=== PATIENT | male | born 1930 | race Caucasian/White ===

== ENCOUNTER 2016-12-05 13:15 | Emergency (ER) | payer MEDICARE ==
[2016-12-05 14:27] VITALS: BP 140/88
--- NOTE | 2016-12-05 15:08 | UC ---
Skin Complaint HPI - HPI Summary HPI Summary: cut left leg yesterday on a tree branch 1 large 4x4 inch skin flap that is peeled back, and second is a 1x1 inch "V" shaped laceration---no bleeding - History of Current Complaint Chief Complaint: UCLaceration Time Seen by Provider: 12/05/16 15:03 Stated Complaint: LEG LACERATION Hx Obtained From: Patient Onset/Duration: Sudden Onset, Lasting Days - 1, Still Present Skin Exposure Onset/Duration: Days Ago - 1 Timing: Constant Onset Severity: Moderate Current Severity: Mild Pain Intensity: 4 Pain Scale Used: 0-10 Numeric Location: Discrete - left lower leg Aggravating: Nothing Alleviating: Treatment 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: - soap water and peroxide wash Associated Signs & Symptoms: Positive: Negative Related History: Trauma - Allergy/Home Medications Allergies/Adverse Reactions: Allergies Allergy/AdvReac Type Severity Reaction Status Date / Time No Known Allergies Allergy Verified 09/27/15 11:21 Review of Systems Constitutional: Negative Skin: Negative, Other - 4x4 suare flap laceration and 1x1 v spahed laceration Eyes: Negative ENT: Negative Respiratory: Negative Cardiovascular: Negative Gastrointestinal: Negative Genitourinary: Negative Motor: Negative Neurovascular: Negative Musculoskeletal: Negative Neurological: Negative Psychological: Negative All Other Systems Reviewed And Are Negative: Yes PMH/Surg Hx/FS Hx/Imm Hx Previously Healthy: No Endocrine History Of: 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 Denies: Thyroid Disease Cardiovascular History Of: Reports: Cardiac Disorders - a-fib, CHF, Hypertension , Congestive Heart Failure Respiratory History Of: Reports: COPD, Asthma GI/ History Of: Reports: Gastrointestinal Bleed Denies: Ulcer, Renal Disease - Surgical History Surgical History: Yes Surgery Procedure, Year, and Place: lung surgery, cholecystectomy, hernia repair , appendectomy - Family History Known Family History: Positive: None Family History: no reported cardiovascular issues in family lineage - Social History Occupation: Retired Lives: With Family Alcohol Use: None Substance Use Type: None Smoking Status (MU): Former Smoker Type: Cigarettes When Did the Patient Quit Smoking/Using Tobacco: 20 yrs ago - Immunization History Most Recent Influenza Vaccination: 2015 fall Most Recent Tetanus Shot: unknown Most Recent Pneumonia Vaccination: 2013 Hx Tetanus, Diphtheria Vaccination: Yes - 2010 Vaccination Up to Date: Yes Physical Exam Triage Information Reviewed: Yes Appearance: Well-Appearing, No Pain Distress, Well-Nourished Vital Signs: Initial Vital Signs Temp 98.6 F 12/05/16 14:13 Pulse 81 12/05/16 14:13 Resp 18 12/05/16 14:13 BP 140/88 12/05/16 14:13 Pulse Ox 96 12/05/16 14:13 Vital Signs Reviewed: Yes Eye Exam: Normal Eyes: Positive: Conjunctiva Clear ENT Exam: Normal ENT: Positive: Normal ENT inspection, Hearing grossly normal. Negative: Nasal congestion, Nasal drainage, Trismus, Muffled/hoarse voice Dental Exam: Normal Neck exam: Normal Neck: Positive: Supple, Nontender Respiratory Exam: Normal Respiratory: Positive: Chest non-tender, Lungs clear, Normal breath sounds, No respiratory distress, No accessory muscle use Cardiovascular Exam: Normal Cardiovascular: Positive: RRR, No Murmur, Pulses Normal, Brisk Capillary Refill Bowel Sounds: Positive: Present Musculoskeletal Exam: Normal Musculoskeletal: Positive: Strength Intact, ROM Intact, No Edema Neurological Exam: Normal Neurological: Positive: Alert Psychological Exam: Normal Skin: Positive: Other - skin on larger laceration is accordian folded and is firmly attached to wound---was unable to be lifted with moisuture ointment qtips Course/Dx - Course Course Of Treatment: antibiodics, mepilex dressing follow with pcp for dressing change , re-check prn - Differential Diagnoses - Skin Complaint Differential Diagnoses: Abscess, Cellulitis, Other - unsuturable wound left lower leg - Diagnoses Provider Diagnoses: 4 x 4 inches skin flap laceration and 1x1 inch v-shaped laceration, no suture repaired Discharge - Discharge Plan Condition: Stable Disposition: HOME Prescriptions: Cephalexin CAP* [Keflex CAP*] 500 mg PO QID #20 cap Patient Education Materials: Cephalexin (By mouth), Skin Avulsion (ED) Referrals: Pawel Herring MD [Primary Care Provider] - 3 Days
[2016-12-05] MEDS ORDERED: Benzoin Compound STICK TOPICAL ONE (15:09)
[2016-12-05] MEDS ORDERED: Benzoin COMPOUND swab* 1 applicator pak TOPICAL ONE (15:09)
[2016-12-05] MEDS ORDERED: HYDROcodone/ACETAMIN 5-325 MG* 1 TAB PO ONE (15:35)
[2016-12-05] MEDS ORDERED: Benzoin Compound STICK ONE (15:41)
== END 2016-12-05 16:20 | disposition home or self-care (01) ==
LOC: UCEAST 13:15
DX: S81.812A Laceration without foreign body, left lower leg, initial encounter (principal); J44.9 Chronic obstructive pulmonary disease, unspecified; W22.8XXA Striking against or struck by other objects, initial encounter; Y92.9 Unspecified place or not applicable
CPT/HCPCS: 99212; G0463

== ENCOUNTER 2016-12-27 07:21 | Emergency (ER) | payer MEDICARE ==
--- NOTE | 2016-12-27 09:14 | RAD ---
INDICATION: Asymmetric edema in the LEFT lower extremity. Anterior calf wound from traumatic injury. Anticoagulated. Diabetic. COMPARISON: February 21, 2009 TECHNIQUE: May scale, color Doppler, and spectral analysis of the deep veins of the LEFT lower extremity. Vessel compression, phasicity, and augmentation assessed. REPORT: The LEFT common femoral, great saphenous, profunda femoral, femoral, popliteal, peroneal, and posterior tibial veins are patent. Subcutaneous edema at the calf. Patency of the RIGHT common femoral vein documented. IMPRESSION: No evidence for LEFT lower extremity deep venous thrombosis.
--- NOTE | 2016-12-27 09:50 | UC ---
Mikhail Solo Benjamin, scribed for Breana Currie DO on 12/27/16 at 0809 . Skin Complaint HPI - HPI Summary HPI Summary: 86yo male presents with a wound on left golden. Pt was seen 2 weeks ago for the same wound and was tx with Keflex. He is back today to get his wound rechecked. Pt thinks the wound is infected. Left leg is more red and swollen compared to the right leg. Denies fever or chills. Pt is on a blood thinner. Pt does not have DM. FHx includes DM. - History of Current Complaint Chief Complaint: UCWounds Time Seen by Provider: 12/27/16 07:25 Stated Complaint: WOUND RECHECK Hx Obtained From: Patient, Family/Business Process Analyst - Onset/Duration: Gradual Onset, Lasting Weeks - 1 week, Still Present, Worse Since - worse than initial Timing: Constant Onset Severity: Mild Current Severity: Moderate Location: Other - left golden Character: Swelling, Redness, Raised Aggravating: Nothing Alleviating: Nothing Associated Signs & Symptoms: Positive: Negative - Allergy/Home Medications Allergies/Adverse Reactions: Allergies Allergy/AdvReac Type Severity Reaction Status Date / Time No Known Allergies Allergy Verified 09/27/15 11:21 Review of Systems Constitutional: Negative Skin: Other - red, swollen wound on left golden. Eyes: Negative ENT: Negative Respiratory: Negative Cardiovascular: Negative Gastrointestinal: Negative Genitourinary: Negative Motor: Negative Neurovascular: Negative Musculoskeletal: Negative Neurological: Negative Psychological: Negative All Other Systems Reviewed And Are Negative: Yes PMH/Surg Hx/FS Hx/Imm Hx Endocrine History: Diabetes Cardiovascular History: Cardiac Disease, Hypertension, Congestive Heart Failure , Atrial Fibrillation GI/ History: Gastrointestional Bleed - Surgical History Surgical History: Yes Surgery Procedure, Year, and Place: lung surgery, cholecystectomy, hernia repair , appendectomy - Family History Known Family History: Positive: Diabetes Negative: Cardiac Disease, Hypertension Family History: no reported cardiovascular issues in family lineage - Social History Occupation: Retired Lives: With Family Alcohol Use: None Substance Use Type: None Smoking Status (MU): Former Smoker Type: Cigarettes When Did the Patient Quit Smoking/Using Tobacco: 20 yrs ago - Immunization History Most Recent Influenza Vaccination: 2016 fall Most Recent Tetanus Shot: unknown Most Recent Pneumonia Vaccination: 2013 Hx Tetanus, Diphtheria Vaccination: Yes - 2010 Vaccination Up to Date: Yes Physical Exam Triage Information Reviewed: Yes Appearance: Well-Appearing, No Pain Distress, Well-Nourished Vital Signs: Initial Vital Signs Temp 98.2 F 12/27/16 07:24 Pulse 82 12/27/16 07:24 Resp 18 12/27/16 07:24 BP 154/66 12/27/16 07:24 Pulse Ox 96 12/27/16 07:24 Vital Signs Reviewed: Yes Eyes: Positive: Conjunctiva Clear. Negative: Discharge ENT: Positive: Hearing grossly normal. Negative: Muffled/hoarse voice Neck exam: Normal Neck: Positive: Supple Respiratory: Positive: Lungs clear, Normal breath sounds, No respiratory distress, No accessory muscle use Cardiovascular: Positive: RRR, No Murmur, Pulses Normal Musculoskeletal: Positive: Strength Intact, Edema @ - Asymmetrical swelling of LLE., Other: - calf tenderness of the left. Neurological: Positive: Alert, Muscle Tone Normal Psychological: Positive: Age Appropriate Behavior Skin: Positive: Other - Evidence of chronic bilateral venous stasis. 6x7cm non healing lesion. Oozing blood, granulated tissue noted. Erythematous. Course/Dx - Course Course Of Treatment: Doppler US: NO DVT in left leg. - Differential Diagnoses - Skin Complaint Differential Diagnoses: Cellulitis, Other - stasis dermatitis, wound infection - Diagnoses Provider Diagnoses: wound infection, nonhealing wound Discharge - Discharge Plan Condition: Stable Disposition: HOME Prescriptions: DOXYcycline CAP(*) [DOXYcycline 100MG CAP(*)] 100 mg PO BID #20 cap Patient Education Materials: Wound Infection (ED), Wound Healing and Your Diet (ED), Chronic Wounds (ED) Referrals: Pawel Herring MD [Primary Care Provider] - (FOLLOW UP IN 2 DAYS. FOLLOW UP SOONER IF SYMPTOMS WORSEN OR NEW SYMPTOMS DEVELOP.) Additional Instructions: DOXYCYCLINE: Doxycycline (Vibramycin, Doryx) is an antibiotic of the tetracycline family. This type of drug is useful for infections of the respiratory tract and genital tract, and is sometimes used for intestinal infections. Unlike most tetracyclines, doxycycline can be taken with food. It is longer acting, and (usually) less prone to side effects than regular tetracycline. Tetracycline antibiotics can stain immature teeth and SHOULD NOT BE TAKEN BY CHILDREN, NURSING MOTHERS, OR WOMEN. Tetracyclines can make you more prone to sunburn. Abdominal cramping, nausea, and diarrhea are occasional side effects. Women may experience vaginal yeast infections. Call the doctor at once if you develop hives, itching, shortness of breath , or lightheadedness. DISCUSSED, DOXY ALSO INCREASES YOUR RISK OF SUNBURN. COVER UP WHEN YOU GO OUTSIDE. ANYTIME YOU TAKE AN ANTIBIOTIC, IT IS IMPORTANT TO REPLENISH THE BODY'D SUPPLY OF "GOOD BACTERIA." YOU CAN GET GOOD BACTERIA FROM HIGH QUALITY CULTURED FOODS SUCH LOCAL YOGURT, SOUR KRAUT, CURLY ERICK, NATURALLY FERMENTED PICKLES AND PROBIOTIC DRINKS. YOU CAN ALSO GET GOOD BACTERIA FROM A PROBIOTIC SUPPLEMENT. Please follow up with [facility]. ([phone].) The documentation as recorded by the Mikhail stoddard Benjamin accurately reflects the service I personally performed and the decisions made by me, Breana Currie DO.
[2016-12-27 09:52] VITALS: BP 135/84
== END 2016-12-27 09:52 | disposition home or self-care (01) ==
LOC: UCEAST 07:21
DX: L08.9 Local infection of the skin and subcutaneous tissue, unspecified (principal)
CPT/HCPCS: 87070; 87205; 99212; G0463

== ENCOUNTER 2017-03-16 08:52 | Emergency (ER) | payer MEDICARE ==
--- NOTE | 2017-03-16 08:58 | UC ---
Skin Complaint HPI - HPI Summary HPI Summary: 86 YEAR OLD MALE WITH SKIN TEAR LEFT TRICEP. - History of Current Complaint Time Seen by Provider: 03/16/17 08:57 Stated Complaint: ARM LAC Hx Obtained From: Patient Onset/Duration: Sudden Onset Skin Exposure Onset/Duration: Hours Ago Timing: Constant Onset Severity: Moderate Current Severity: Moderate Pain Scale Used: 0-10 Numeric - 5 - Allergy/Home Medications Allergies/Adverse Reactions: Allergies Allergy/AdvReac Type Severity Reaction Status Date / Time No Known Allergies Allergy Verified 09/27/15 11:21 Review of Systems Constitutional: Negative Skin: Other - LEFT TRICEP SKIN TEAR Eyes: Negative ENT: Negative Respiratory: Negative Cardiovascular: Negative Gastrointestinal: Negative Genitourinary: Negative Motor: Negative Neurovascular: Negative Musculoskeletal: Negative Neurological: Negative Psychological: Negative All Other Systems Reviewed And Are Negative: Yes PMH/Surg Hx/FS Hx/Imm Hx Previously Healthy: Yes - Surgical History Surgical History: Yes Surgery Procedure, Year, and Place: lung surgery, cholecystectomy, hernia repair , appendectomy - Family History Known Family History: Positive: None, Diabetes Negative: Cardiac Disease, Hypertension Family History: no reported cardiovascular issues in family lineage - Social History Alcohol Use: None Substance Use Type: None Smoking Status (MU): Former Smoker Type: Cigarettes When Did the Patient Quit Smoking/Using Tobacco: 20 yrs ago - Immunization History Most Recent Influenza Vaccination: fall Most Recent Tetanus Shot: unknown Most Recent Pneumonia Vaccination: 2013 Hx Tetanus, Diphtheria Vaccination: Yes - 2010 Vaccination Up to Date: Yes Physical Exam Triage Information Reviewed: Yes Eye Exam: Normal ENT Exam: Normal Dental Exam: Normal Neck exam: Normal Neck: Positive: 1 Respiratory Exam: Normal Cardiovascular Exam: Normal Abdominal Exam: Normal Musculoskeletal Exam: Normal Neurological Exam: Normal Psychological Exam: Normal Skin: Positive: Other - LEFT TRICEP SKIN TEAR Course/Dx - Diagnoses Provider Diagnoses: LEFT ARM SKIN TEAR Discharge - Discharge Plan Condition: Stable Disposition: HOME Prescriptions: Cephalexin CAP* [Keflex CAP*] 500 mg PO TID #30 cap Patient Education Materials: Skin Tear (ED) Referrals: Pawel Herring MD [Primary Care Provider] -
[2017-03-16 09:04] VITALS: BP 154/77
== END 2017-03-16 09:31 | disposition home or self-care (01) ==
LOC: UCEAST 08:52
DX: S41.112A Laceration without foreign body of left upper arm, initial encounter (principal); Z87.891 Personal history of nicotine dependence; X58.XXXA Exposure to other specified factors, initial encounter
CPT/HCPCS: 99213; G0463

== ENCOUNTER 2017-03-18 07:41 | Emergency (ER) | payer MEDICARE ==
[2017-03-18 07:54] VITALS: BP 150/82
--- NOTE | 2017-03-18 09:38 | UC ---
Skin Complaint HPI - HPI Summary HPI Summary: PT PRESENTS FOR WOUND CHECK AND BANDAGE CHANGE. PT SUFFERED A LARGE ~19X8CM SKIN TEAR OVER LEFT TRICEP. PT WAS SEEN HERE ON 03/16/17. BANDAGED AND STARTED ON KELFEX. - History of Current Complaint Chief Complaint: UCSkin Time Seen by Provider: 03/18/17 08:31 Stated Complaint: BANDAGE CHANGE Hx Obtained From: Patient Onset/Duration: Sudden Onset, Lasting Days - 2, Still Present Timing: Constant Onset Severity: Moderate Current Severity: Moderate Pain Intensity: 5 Pain Scale Used: 0-10 Numeric Location: Discrete - OVER LEFT TRICEP Character: Redness, Painful Aggravating: Touch Alleviating: Nothing Associated Signs & Symptoms: Positive: Bruising, Tenderness. Negative: Nausea, Vomiting, Diaphoresis, Weakness, Shivering, Difficulty Breathing, Fever, Chills , Cough, Chest Pain, Abdominal Pain, Lightheadedness, Syncope, Drainage, Red Streaks, Joint Swelling Related History: Trauma - Allergy/Home Medications Allergies/Adverse Reactions: Allergies Allergy/AdvReac Type Severity Reaction Status Date / Time No Known Allergies Allergy Verified 09/27/15 11:21 Review of Systems Constitutional: Negative Skin: Other - SEE HPI Eyes: Negative Respiratory: Negative Cardiovascular: Negative Gastrointestinal: Negative Musculoskeletal: Negative Neurological: Negative All Other Systems Reviewed And Are Negative: Yes PMH/Surg Hx/FS Hx/Imm Hx Previously Healthy: Yes Endocrine History: Diabetes Cardiovascular History: Hypertension, Congestive Heart Failure, Atrial Fibrillation Respiratory History: COPD, Asthma - Surgical History Surgical History: Yes Surgery Procedure, Year, and Place: lung surgery, cholecystectomy, hernia repair , appendectomy - Family History Known Family History: Positive: None, Diabetes Negative: Cardiac Disease, Hypertension Family History: no reported cardiovascular issues in family lineage - Social History Occupation: Retired Lives: With Family Alcohol Use: None Substance Use Type: None Smoking Status (MU): Former Smoker Type: Cigarettes Length of Time of Smoking/Using Tobacco: 40+ YEARS OF SMOKING When Did the Patient Quit Smoking/Using Tobacco: 20 yrs ago - Immunization History Most Recent Influenza Vaccination: 2016 fall Most Recent Tetanus Shot: unknown Most Recent Pneumonia Vaccination: 2013 Hx Tetanus, Diphtheria Vaccination: Yes - 2010 Vaccination Up to Date: Yes Physical Exam Triage Information Reviewed: Yes Appearance: Well-Appearing, No Pain Distress, Well-Nourished Vital Signs: Initial Vital Signs Temp 97.4 F 03/18/17 07:50 Pulse 62 03/18/17 07:50 Resp 16 03/18/17 07:50 BP 150/82 03/18/17 07:50 Pulse Ox 98 03/18/17 07:50 Vital Signs Reviewed: Yes Eyes: Positive: Conjunctiva Clear. Negative: Discharge ENT: Positive: Hearing grossly normal. Negative: Muffled/hoarse voice Neck: Positive: Supple Respiratory: Positive: Lungs clear, No respiratory distress, No accessory muscle use Cardiovascular: Positive: RRR, No Murmur Musculoskeletal Exam: Normal Neurological: Positive: Alert, Muscle Tone Normal Psychological: Positive: Normal Response To Family, Age Appropriate Behavior Skin: Positive: Other - ~19X8CM SKIN TEAR OVER LEFT TRICEP. SOME REDNESS NOTED AROUND SUPERIOR BOARDERS BRUISING VS. INFECTION Course/Dx - Course Course Of Treatment: ~19X8CM SKIN TEAR OVER LEFT TRICEP. SOME REDNESS NOTED AROUND SUPERIOR BOARDERS BRUISING VS. INFECTION. INFECTION UNLIKELY GIVE ABX PPLX. BOARDERS MARKED WITH PURPLE PEN. MEPLEX DRESSING APPLIED. PT WILL RETURN FOR RECHECK AND BANDAGE ON 03/20/17 - Differential Diagnoses - Skin Complaint Differential Diagnoses: Cellulitis, Other - ABRASION, CONTUSION, AVULSION - Diagnoses Provider Diagnoses: SKIN AVULSION, WOUND CHECK Discharge - Discharge Plan Condition: Stable Disposition: HOME Patient Education Materials: Skin Tear (ED) Referrals: [facility] [Outside] (FOLLOW UP 03/23/17 AT 9:30 AM) Pawel Herring MD [Primary Care Provider] - (follow up in 4 to 7 days) Additional Instructions: CONTINUE TAKING ANTIBIOTIC(KEFLEX) DIRECTED ANYTIME YOU TAKE AN ANTIBIOTIC, IT IS IMPORTANT TO REPLENISH THE BODY'S SUPPLY OF "GOOD BACTERIA." YOU CAN GET GOOD BACTERIA FROM HIGH QUALITY CULTURED FOODS SUCH LOCAL YOGURT, SOUR KRAUT, CURLY ERICK, NATURALLY FERMENTED PICKLES AND PROBIOTIC DRINKS. YOU CAN ALSO GET GOOD BACTERIA FROM A PROBIOTIC SUPPLEMENT. FOLLOW UP FOLLOW UP IN 2 DAYS FOR A WOUND CHECK. THIS FOLLOW UP VISIT IS IMPORTANT. WE WANT TO KNOW THAT YOU ARE IMPROVING AFTER 2 DAYS OF TREATMENT. IF YOU CAN NOT GET IN TO YOUR PCP'S OFFICE, RETURN HERE FOR FOLLOW UP.
== END 2017-03-18 09:25 | disposition home or self-care (01) ==
LOC: UCEAST 07:41
DX: S41.112D Laceration without foreign body of left upper arm, subsequent encounter (principal); X58.XXXD Exposure to other specified factors, subsequent encounter; I11.0 Hypertensive heart disease with heart failure; I50.9 Heart failure, unspecified; E11.9 Type 2 diabetes mellitus without complications; I48.91 Unspecified atrial fibrillation; J44.9 Chronic obstructive pulmonary disease, unspecified; Z87.891 Personal history of nicotine dependence
CPT/HCPCS: 99212; G0463

== ENCOUNTER 2017-03-20 08:35 | Emergency (ER) | payer MEDICARE ==
--- NOTE | 2017-03-20 09:40 | UC ---
Skin Complaint HPI - HPI Summary HPI Summary: pt here for wound check. pt suffered a large skin tear over his left tricep on 02/13/17. Wound was dressed with xeroform and pt started on keflex. pt came in for a bandage change on 02/15/17. during that visit, a 2-4cm erythematous boarder was noted around the superior margins of the wound. pt was already on keflex. mepilex dressing was applied by myself after marking the boarder was noted. PT WAS - History of Current Complaint Chief Complaint: UCGeneralIllness Time Seen by Provider: 03/20/17 08:49 Stated Complaint: WOUND CHECK Hx Obtained From: Patient Onset/Duration: Sudden Onset, Lasting Days - 4, Still Present Timing: Constant Onset Severity: Moderate Current Severity: Moderate Pain Intensity: 5 Location: Discrete, Other - over left tricep Character: Pain, Redness Aggravating: Touch Alleviating: Nothing Associated Signs & Symptoms: Positive: Negative - Allergy/Home Medications Allergies/Adverse Reactions: Allergies Allergy/AdvReac Type Severity Reaction Status Date / Time No Known Allergies Allergy Verified 03/20/17 08:38 Review of Systems Constitutional: Negative Skin: Other - skin avulsion ENT: Negative Respiratory: Negative Cardiovascular: Negative Gastrointestinal: Negative Neurological: Negative, Other - no falls or confusion All Other Systems Reviewed And Are Negative: Yes PMH/Surg Hx/FS Hx/Imm Hx Endocrine History: Diabetes Cardiovascular History: Hypertension, Congestive Heart Failure, Other - afib Other Cardiovascular History: afib Respiratory History: COPD, Asthma - Surgical History Surgical History: Yes Surgery Procedure, Year, and Place: lung surgery, cholecystectomy, hernia repair , appendectomy - Family History Known Family History: Positive: None, Diabetes Negative: Cardiac Disease, Hypertension Family History: no reported cardiovascular issues in family lineage - Social History Occupation: Retired Lives: With Family Alcohol Use: None Substance Use Type: None Smoking Status (MU): Former Smoker Type: Cigarettes Length of Time of Smoking/Using Tobacco: 40+ YEARS OF SMOKING When Did the Patient Quit Smoking/Using Tobacco: 20 yrs ago - Immunization History Most Recent Influenza Vaccination: 2015 fall Most Recent Tetanus Shot: unknown Most Recent Pneumonia Vaccination: 2013 Hx Tetanus, Diphtheria Vaccination: Yes - 2010 Vaccination Up to Date: Yes Physical Exam Triage Information Reviewed: Yes Appearance: Well-Appearing, No Pain Distress, Well-Nourished Vital Signs: Initial Vital Signs Temp 97.6 F 03/20/17 08:39 Pulse 59 03/20/17 08:39 Resp 18 03/20/17 08:39 Pulse Ox 96 03/20/17 08:39 Vital Signs Reviewed: Yes Eyes: Positive: Conjunctiva Clear, Discharge ENT: Positive: Hearing grossly normal. Negative: Muffled/hoarse voice Neck: Positive: Supple Respiratory: Positive: Lungs clear, Normal breath sounds Cardiovascular: Positive: RRR Musculoskeletal Exam: Normal Neurological: Positive: Alert, Muscle Tone Normal Psychological: Positive: Normal Response To Family, Age Appropriate Behavior Skin: Positive: Other - ~19x8cm skin avulsion over the left tricep. no expansion of erythema beyond the previously marked boarders. Course/Dx - Diagnoses Provider Diagnoses: wound check, skin avulsion Discharge - Discharge Plan Condition: Stable Disposition: HOME Patient Education Materials: Skin Avulsion (ED) Referrals: [facility] [Outside] (Follow up with Wound Care on Tuesday(03/23/17) as planned. Follow up here if you bandage comes loose or if any other problems develop.) Pawel Herring MD [Primary Care Provider] - If Needed ()
== END 2017-03-20 09:50 | disposition home or self-care (01) ==
LOC: UCEAST 08:35
DX: S41.102A Unspecified open wound of left upper arm, initial encounter (principal)
CPT/HCPCS: 99212; G0463

== ENCOUNTER 2017-11-19 18:56 | Inpatient (IN) | payer MEDICARE ==
[2017-11-19] MEDS ORDERED: Tetan/Diph/Pertus SYR(Tdap)* 0.5 ML SYR(BOOSTRIX) use SYR IM ONE (19:40)
[2017-11-19] MEDS ORDERED: Ondansetron INJ* 2 MG/ML VIAL IV ONE (19:41)
[2017-11-19] MEDS ORDERED: Ondansetron ODT TAB* 4 MG ONE (20:15)
[2017-11-19] MEDS ORDERED: Ondansetron ODT TAB* 4 MG PO ONE (20:18)
[2017-11-19] MEDS: Morphine VIAL* 4 MG/ML VIAL (1 ml vial) IV ONE ×2 (20:18→21:04)
--- NOTE | 2017-11-19 20:23 | RAD ---
INDICATION: Right hip injury. COMPARISON: Comparison is made with a prior study from August 01, 2015. TECHNIQUE: An AP view of the pelvis and frontal and lateral views of the right hip were obtained. FINDINGS: There is a fracture of the right femoral neck. The fracture fragments are overriding and in varus angulation. IMPRESSION: DISPLACED ANGULATED FRACTURE OF THE RIGHT FEMORAL NECK.
--- NOTE | 2017-11-19 20:25 | RAD ---
INDICATION: Trauma, right hip fracture. COMPARISON: Comparison is made with a prior study from August 03, 2015. TECHNIQUE: A portable view of the chest was obtained. FINDINGS: Cardiac and mediastinal contours appear to be within normal limits. The lungs are underinflated. There is a small infiltrate at the left lung base most consistent with atelectasis. There is a small nodular density which projects over the right midlung measuring approximately 5 mm in size which is unchanged from the prior exam. No pleural effusion is seen. IMPRESSION: NO EVIDENCE FOR ACUTE DISEASE..
[2017-11-19 20:42] LABS: ABS Basophils 0 10^3/ul (0-0.2); ABS Eosinophils 0.1 10^3/ul (0-0.6); ABS Lymphocytes 2.9 10^3/ul (1.0-4.8); ABS Monocytes 1.1 10^3/ul (0-0.8); ABS Neutrophils 8.4 10^3/ul (1.5-7.7); ABS Nucleated RBC 0 10^3/ul; Eosinophil % 0.5 % (0-6); Hematocrit 42 % (42-52); Hemoglobin 14.3 g/dl (14.0-18.0); Lymphocyte % 23.3 % (25-47); Mean Corpuscular HGB Conc 34 g/dl (31-36); Mean Corpuscular Hemoglobin 32 pg (27-31); Mean Corpuscular Volume 95 fL (80-94); Mean Platelet Volume 8.7 um3 (7.4-10.4); Nucleated Red Blood Cells % 0; Platelet Count 139 10^3/ul (150-450); Red Blood Count 4.45 10^6/ul (4.0-5.4); Red Cell Distribution Width 14 % (10.5-15); White Blood Count 12.4 10^3/ul (3.5-10.8)
[2017-11-19 20:47] LABS: Urine Appearance Clear; Urine Blood Negative (Negative); Urine Color Yellow; Urine Ketones Negative (Negative); Urine Protein Negative (Negative); Urine Specific Gravity 1.006 (1.010-1.030); Urine Urobilinogen Negative (Negative)
[2017-11-19 20:50] LABS: INR 1.02 (0.77-1.02)
[2017-11-19 20:58] LABS: EGFR Non-African American 129.6 (>60)
[2017-11-19] MEDS ORDERED: Morphine VIAL* 4 MG/ML VIAL (1 ml vial) IV ONE ×2 (21:01→21:04)
--- OUTSIDE RECORDS SUMMARY | 2017-11-19 21:21 | XMS REPORT ---
:1930 External Reference #:[id number] Author Organization [facility] Address [address] [place] [address] Phone [phone] Care Team Providers Name Role Phone Pawel Herring MD Primary Care Physician Unavailable Payers Type Date Identification Numbers Payment Provider Subscriber Medicare Primary Policy Number: [id number] Medicare-[facility] Anurag Pearl [employer]VS PayID: [id number] [address] [place] [address] Medigap Part B Policy Number: [id number] [facility] Anurag Pearl PayID: [id number] 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 Social History Type Date Description Comments Occupation Retired [employer] Cigarette Use Former Cigarette Smoker 1 Pack Daily Cigars Never Smoked Cigars Pipe Never Smoked A Pipe Smokeless Tobacco Never Used Smokeless Tobacco ETOH Use Currently occasionally consumes alcohol Smoking Patient is a former smoker Allergies, Adverse Reactions, Alerts Date Description Reaction Status Severity Comments 07/23/2013 NKDA active Medications Medication Date Status Form Strength Qnty SIG Indications Ordering Provider Furosemide Active Tablets 40mg Unknown 000 Lovastatin Active Tablets 40mg Unknown 000 Eliquis Active Tablets 2.5mg 1 by Cris Herring MD twice a day Digoxin Active Tablets 125mcg Cris Herring MD Famotidine Active Tablets 20mg 1 by Cris Herring MD every day Symbicort Hx Unknown 000 - 017 Losartan 00/00/0 Hx Unknown Potassium 000 - 017 Sotalol HCL 00/0 Hx Unknown 000 - 017 Cardizem 00/0 Hx Unknown 000 - 017 Spiriva 00/0 Hx Unknown Handihaler 000 - 017 Metformin HCL 00/0 Hx Tablets 500mg Unknown 000 - 017 Eliquis 000 Hx Tablets 2.5mg Unknown 000 - 017 Famotidine 00/0 Hx Tablets 20mg Unknown 000 - 017 Digox 0 Hx Tablets 125mcg Unknown - 017 Omepraz[address] 20mg Unknown - 017 Potassium 00/0 Hx Tablets ER 10Meq (1080 Unknown Citrate ER 000 - mg) 017 Vital Signs Date Vital Result Comment 10/31/2017 Weight 165.00 lb Weight in kg's 74.844 Height 70 inches 5'10" Height in cm's 177.8 cm BMI (Body Mass Index) 23.7 kg/m2 09/27/2016 BP Systolic 147 mmHg BP Diastolic 85 mmHg Heart Rate 75 /min Respiratory Rate 17 /min Weight 173.00 lb Weight in kg's 78.473 Height 70 inches 5'10" Height in cm's 177.8 cm BMI (Body Mass Index) 24.8 kg/m2 07/23/2013 BP Systolic 110 mmHg BP Diastolic 86 mmHg Heart Rate 70 /min Respiratory Rate 16 /min Weight 189.00 lb Weight in kg's 85.730 Height 70.50 inches 5'10.50" Height in cm's 179.1 cm BMI (Body Mass Index) 26.7 kg/m2 Results Description No Information Procedures Date CPT Code Description Status 10/31/2017 48625 Removal Wax Impaction Completed 09/27/2016 44841 Removal Wax Impaction Completed 07/23/2013 45819 Contol Nasal Hemorrhage, Anterior, Simple Completed 11/22/2003 69423 Control Nasal Hemorrhage (Extensive Cautery/Packing) Completed Any Method 08/13/2003 14995 Nasal Endoscopy, Diagnostic Completed 08/01/2003 80298 Anterior/Posterior Packing Completed 08/01/2003 90455 Control Nasal Hemorrhage (Extensive Cautery/Packing) Completed Any Method Encounters Type Date Location Provider CPT E/M Dx Office Visit 08/01/2003 5:30p [place] 07/18/07 Baljeet Clifford 85148 784.7 M.D. Office Visit 08/01/2003 2:15p [place],After 07/18/07 Baljeet Clifford 15703 784.7 M.D. Office Visit 08/01/2003 12:45p [place],After 07/18/07 Baljeet Clifford 15011 784.7 M.D. Plan of Care 10/31/2017 - Anurag Segovia M.D.H61.23 Impacted cerumen, bilateralComments:The patient's cerumen impaction was cleaned without difficulty.Follow up:FU 1 year with PA for ear cleaning
--- OUTSIDE RECORDS SUMMARY | 2017-11-19 21:21 | XMS REPORT ---
:1930 External Reference #:[id number] Author Organization [place] Address [address] [address] Phone [phone] Care Team Providers Name Role Phone Pawel Herring III, MD Primary Care Physician Unavailable Payers Type Date Identification Numbers Payment Provider Subscriber Medicare Primary Effective: Policy Number: Medicare Aidan Pearl 1994 [id number] PayID: [id number] [address] [place] [address] Medigap Part B Effective: Policy Number: [facility] Aidan Styles 2013 [id number] [facility] Dae PayID: [id number] [address] [place] [address] Medigap Part B Expires: 2013 Policy Number: [facility] Aidan Pearl [id number] PayID: [id number] [address] [address] [place] [address] Problems Date Description Provider Status Onset: 05/26/2011 Chronic obstructive lung disease Pawel Herring M.D. Active Onset: 05/26/2011 Benign essential hypertension Pawel Herring M.D. Active Onset: 05/26/2011 Impaired fasting glycaemia Pawel Herring M.D. Active Onset: 05/26/2011 Pure hypercholesterolemia Pawel Herring M.D. Active Onset: 06/24/2014 Dyspnea Darya Wilson MD Active Onset: 06/24/2014 Dyssomnia Darya Wilson MD Active Onset: 11/13/2014 Pulmonary emphysema Darya Wilson MD Active Onset: 11/13/2014 Chronic respiratory failure Darya Wilson MD Active Onset: 03/31/2015 Localized, primary osteoarthritis Rema Gonzalez M.D. Active Onset: 08/12/2015 Impaired fasting glycaemia Pawel Herring M.D. Active Onset: 09/04/2015 Chronic atrial fibrillation Seth Wang NP Active Note: on Eliquis & digoxin HR to low to start BB or other following cardiology Onset: 12/24/2016 Type 2 diabetes mellitus Pawel Herring M.D. Active Family History Date Family Member(s) Problem(s) Comments General No Current Problems Social History Type Date Description Comments Marital Status Lives With Occupation Retired ETOH Use Currently consumes alcohol 2-5 drinks per week per pt Smoking Patient is a former smoker smoked for 45+ years, 1ppd, quit in 1999 Recreational Drug Use Denies Drug Use Daily Caffeine Consumes on average 2 cups of regular coffee per day Exercise Type/Frequency Does not exercise Allergies, Adverse Reactions, Alerts Date Description Reaction Status Severity Comments 02/16/2007 NKDA active Medications Medication Date Status Form Strength Qnty SIG Indications Ordering Provider Lisinopril-Hy Active Tablets 20-12.5mg 90tabs 1 by mouth Pawel Hinojosa drochlorothia 018 every day alberto Herring M.D. Freestyle Active Strips 100unit test weekly Pawel Hinojosa Precision Garth 018 s or as Nevaeh Blood Glucose directed M.DDennis Test Strips for Dx. E11.9 Metformin HCL Active Tablets 500mg 360tabs Take 2 E11.9 Pawel E. 017 Tablets By Nevaeh, Mouth M.D. Twice A Day Famotidine Active Tablets 20mg 90tabs take 1 Pawel E. 017 tablet by Nevaeh, mouth every M.D. day Nebulizer Active Kit QS for use 4 Pawel E. Kit/Tubing/Mo 016 times daily zion Herring as needed M.DDennis Digox Active Tablets 125mcg 90tabs 1 by mouth R94.31 Rocael DDennis 016 every day Vinicius Ayala Eliquis Active Tablets 2.5mg 180tabs 1 tablet by R94.31 Rocael DDennis 016 mouth twice Brand, a day- M.DDennis blood thinner. I48.2 Brovana 09/01/2015 Active Nebulizer 15mcg/2ML 60units 1 dose by Pawel E. nebulizer Nevaeh, twice a day M.Dhaval Budesonide 09/01/2015 Active Suspension 0.5mg/2ML 60units 1 dose twice Pawel E. a day via Nevaeh, nebulizer ( M.Dhaval used as needed ) Ipratropium 09/01/2015 Active Solution 0.02% 150ml inhale the Pawel E. Dawes contents of Nevaeh, one vial via M.DDennis nebulizer twice a day Oxygen 08/13/2015 Active Misc 1units please use o2 Darya at 2l/min MD Katie during exertion. Please provide pt with portable o2 concentrator Albuterol 10/22/2009 Active Nebulizer (2.5mg/3ML 100units via/nebulizer Pawel E. Sulfate ) 0.083% use q 4-6 hrs samara Herring M.D. of breath Lovastatin 10/22/2009 Active Tablets 40mg 90tabs take 1 tablet Pawel E. by mouth Nevaeh, every night MDennisDDennis at bedtime Aleve 01/10/2008 Active Tablets 220mg 1 po qam prn Pawel Herring M.D. Oxygen Active used Unknown Concentrato continuous at r night Compression Active Misc 20-30 MMHG Unknown Stockings Knee Highs Lisinopril- Active Tablets 20-12.5mg 90tabs 1 by mouth Pawel Hinojosa Hydrochloro every day( Nevaeh thiazide Duplicated) Vinicius Azithromyci 06/01/2017 Hx Tablets 250mg 6tabs two tabs day Virgil bobo, one Dhaval Nolan, 06/06/2017 daily till M.DDennis,FACP gone Potassium 10/22/2015 Hx Tablets ER 10Meq 90tabs take 1 tab Pawel E. Citrate ER - (1080 mg) daily Nevaeh, 02/18/2016 Vinicius Lasix 09/30/2015 Hx Tablets 40mg 90tabs 1 po daily Pawel Herring, 08/10/2017 Vinicius Cardizem CD 08/25/2015 Hx Caps ER 120mg 90caps 1 by mouth Pawel Hinojosa - 24HR every day-on Nevaeh, 08/25/2015 hold as of Vinicius 08/21/[address] Herring. Diltiazem 08/25/2015 Hx Caps ER 180mg 90caps 1 by mouth Pawel Hinojosa CD - 24HR every day d/c Nevaeh, 08/25/[address] Nevaeh Colvin 08/25/15. Aspir-Low 08/25/[address] 81mg 30tabs 1 by mouth Pawel EDennis - every day Nevaeh, 02/18/2016 Vinicius Tylenol 08/25/2015 Hx Tablets 325mg 60tabs Take 1 - 2 Pawel Hinojosa - tabs as Nevaeh, 05/30/2017 needed Vinicius Lasix 08/21/2015 Hx Tablets 20mg 30tabs 2 by mouth Pawel EDennis - every day Nevaeh, 09/30/2015 Vinicius Glipizide 08/12/2015 Hx Tablets 5mg 180tabs 1 by mouth Pawel E. - twice a day Nevaeh, 08/21/2015 Vinicius Metformin 08/12/2015 Hx Tablets 500mg 60tabs 1 by mouth in Pawel Hinojosa HCL - the am Nevaeh, 08/21/2015 Vinicius Xarelto 08/12/2015 Hx Tablets 20mg 90tabs 1 by mouth Pawel EDennis - every day Nevaeh, 08/21/2015 Vinicius Diltiazem 08/12/2015 Hx Caps ER 180mg 90caps 1 by mouth Pawel Hinojosa CD - 24HR every day Nevaeh, 08/21/2015 Vinicius Sulfamethox 07/15/2015 Hx Tablets 800-160mg 28tabs 1 tab by N39Dennis cruzle/Trime - mouth twice a 0 Quinteros, OCC THERAPIST thoprim DS 08/21/2015 day x 2 weeks Furosemide 11/26/2014 Hx Tablets 20mg 30tabs take 1 tablet 782. Pawel E. - by mouth 3 Nevaeh, 02/05/2015 every morning MAmol Azithromyci 08/31/2013 Hx Tablets 250mg 6tabs two tabs day Pawel Hinojosa n - one, one Nevaeh, 12/13/2013 daily till M.D. gone Proair HFA 12/04/2012 Hx Aerosol 108(90Base 3units 2 puffs by Pawel Hinojosa - ) mcg/Act mouth four Nevaeh, 02/18/2016 times a day M.D. as needed Prednisone 04/05/2012 Hx Tablets 20mg 30tabs 1 po qd for 496 Pawel E. - 5-7 days, Nevaeh, 08/31/2013 then 1/2 tab M.D. daily for 5-7 days Ciprofloxac 03/17/2012 Hx Tablets 500mg 20tabs 1 tab po bid 466. Sri in HCL - x 10 days 0 Niko, 04/05/2012 N.P. Prednisone 03/17/2012 Hx Tablets 10mg 24tabs 5 tab x2 day, 466. Sri - 4 tab x 2day, 0 Niko, 04/05/2012 3 tab x 1 N.P. day, 2 tab x1day, 1 tab x 1day Nystatin 03/14/2012 Hx Suspension [id number] 60ml 400,000 units Sri - /ML 4 times/day; Niko, 04/05/2012 swish in the N.P. mouth & retain for as long as possible before swallow, use x48 after symptoms resolv Cheratussin 03/10/2012 Hx Syrup 100-10mg/5 236ml 5-10 ml po 466. Sri ac - ML q4-6h prn 0 Niko, 04/05/2012 N.P. Augmentin 03/10/2012 Hx Tablets 875-125mg 20tabs bid x 10 days 466. Sri - 0 Niko, 03/17/2012 N.P. Xopenex HFA 12/29/2011 Hx Aerosol 45mcg/Act 3units 2 puffs qid Pawel EDennis - prn Nevaeh, 12/04/2012 M.DDennis Proair HFA 12/15/2011 Hx Aerosol 108(90Base 3units 2 Puffs qid Pawel E. - ) mcg/ac prn Nevaeh, 01/03/2012 Chad.DDennis Zestoretic 12/03/2011 Hx Tablets 20-25mg 90tabs 1 by mouth Pawel E. - every day Nevaeh, 08/12/2015 Vinicius Zestoretic 06/21/2011 Hx Tablets 20-12.5mg 90tabs 1 po qd Pawel Herring, 12/03/2011 Vinicius Spiriva 08/25/2010 Hx Capsules 18mcg 90caps Not Using 1 Pawel Hinojosa Handihaler - inhalations Nevaeh, 05/30/2017 from one M.DDennis capsule daily Prednisone 08/25/2010 Hx Tablets 20mg 10tabs 1 po qd Pawel Herring, 11/18/2010 M.DDennis Zithromax 08/25/2010 Hx Tablets 250mg 1Pack as per Pawel Damon - directions Nevaeh, 11/18/2010 M.Dhaval Symbicort 07/20/2010 Hx Aerosol 160-4.5mcg 3units Not Using2 Zuly - /Act puff twice a Roberto, 05/30/2017 day MAmol Combivent 05/25/2010 Hx 3MonthSu 2 puffs qid Pawel Hinojosa Inhaler - p Nevaeh, 08/25/2010 MAmol Zithromax 10/22/2009 Hx Tablets 250mg 1Pack as per Pawel Damon - directions Nevaeh, 05/25/2010 MAmol Albuterol 05/30/2009 Hx Nebulizer 0.63mg/3ML 100units 1 po tid Pawel Hinojosa Sulfate Lowell Herring, 10/22/2009 M.DDennis Furosemide 02/27/2009 Hx Tablets 20mg 7tabs 1 po qam Pawel Herring, 11/26/2014 MAmol Atrovent 11/20/2008 Hx Aerosol 17mcg/Act 3units 2 puffs qid Pawel Hinojosa HFA - Nevaeh, 05/25/2010 MAmol Benzonatate 10/21/2008 Hx Capsules 100mg 30caps 1-2 up to tid Pawel Etienne prn cough Nevaeh, 11/20/2008 Vinicius Sotalol HCL 06/05/2008 Hx Tablets 80mg 180tabs 1 tab by Rocael Puentes - mouth twice a Brand, 07/28/2015 day M.DDennis Symbicort 06/05/2008 Hx Aerosol 160-4.5 3units 2 puff bid Pawel Herring, 07/20/2010 Vinicius Proair HFA 03/29/2008 Hx Aerosol 108mcg/Act 3units 2 Puffs qid Pawel Herring, 12/15/2011 Vinicius Zithromax 12/13/2007 Hx Tablets 250mg 1Pack as per Pawel Issa-Flip - directions Nevaeh, 01/10/2008 Vinicius Zestoretic 11/22/2007 Hx Tablets 20-12.5 90tabs 1 po qd Pawel Herring M.D. Cardizem CD 08/01/2007 Hx Caps ER 120mg 90caps 1 by mouth Pawel Etienne 24HR every day-on Nevaeh, 01/01/2014 hold Vinicius Lipitor 02/16/2007 Hx Tablets 20mg 90tabs 1 po qhs Pawel Herring, 10/22/2009 Vinicius Zestoretic Hx Tablets 10/12.5 90tabs 1 po qd Pawel Herring, 11/22/2007 Vinicius Aleve Hx Tablets 220mg 2 PO Q Am Other - Physician 11/22/2007 Practices Albuterol Hx Aerosol 90mcg/Act 3units Pawel Herring, 03/29/2008 Vinicius Advair Hx Misc 250/50 3units 1 puff bid Pawel Jerome - samara Herring, 06/05/2008 M.DDennis Oxygen Hx Misc 1units 2 l nc at Unknown - bedtime 08/13/2015 Prednisone Hx Tablets 20mg Unknown - 03/20/2015 Doxycycline Hx Tablets 100mg Unknown Hyclate - 03/20/[address] 20mg 90caps Take 1 Pawel Hinojosa - cas by Nevaeh, 08/18/2016 mouth twice M.D. a day Sotalol HCL Hx Tablets 80mg 1 tab by Unknown - mouth twice a 10/22/2016 day Cephalexin Hx Capsules 500mg Unknown - 12/24/2016 Medications Administered in Office Medication Date Status Form Strength Qnty SIG Indications Ordering Provider Depomedrol 40MG 07/29/ Administered Injection Rema 2017 Vinicius Gonzalez Depomedrol 40MG 07/29/ Administered Injection Rema 2017 Vinicius Gonzalez Depomedrol 40MG 04/27/ Administered Injection Rema 2016 Vinicius Gonzalez Depomedrol 40MG 04/27/ Administered Injection Rema 2016 Vinicius Gonzalez Depomedrol 40MG 01/24/ Administered Injection Rema 2016 Vinicius Gonzalez Depomedrol 40MG 01/24/ Administered Injection Rema 2016 Vinicius Gonzalez Depomedrol 40MG 10/27/ Administered Injection Rema 2016 Vinicius Gonzalez Depomedrol 40MG 10/27/ Administered Injection Rema 2016 Vinicius Gonzalez Triamcinolone 07/28/ Administered Injection Rema (Kenalog) 2016 Vinicius Gonzalez Triamcinolone 07/28/ Administered Injection Rema (Kenalog) 2016 Vinicius Gonzalez Depomedrol 40MG 03/29/ Administered Injection Rema 2015 Vinicius Gonzalez Depomedrol 40MG 12/25/ Administered Injection Rema 2015 Vinicius Gonzalez Depomedrol 40MG 12/25/ Administered Injection Rema 2015 Vinicius Gonzalez Depomedrol 40MG 09/23/ Administered Injection Rema 2015 Vinicius Gonzalez Depomedrol 80MG 06/16/ Administered Injection Rema 2014 Vinicius Gonzalez Depomedrol 80MG 03/31/ Administered Injection Rema 2014 Vinicius Gonzalez Influenza Virus 03/18/ Administered Injection Unknown Vaccine 2013 Influenza Virus 04/17/ Administered Injection Unknown Vaccine 2013 Immunizations CPT Code Status Date Vaccine Lot # [id number] Given 04/15/2017 Influenza Virus Vaccine, Quadrivalent, Split, Preservative Free 34516 Given 04/21/2016 Fluzone High Dose Q2039 Given 04/21/2015 Flu Vaccine NOS 53810 Given 04/30/2014 Pneumococcal Conjugate Vaccine 13 Valent For [id number] Intramuscular Use 64413 Given 07/18/2013 Zoster (Zostavax) 09805 Given 12/04/2012 Tdap - Tetanus/Diptheria/Acellular Pertussis [id number] Q2038 Given 04/24/2012 Fluzone Vaccine [id number] Q2038 Given 04/21/2011 Fluzone Vaccine [id number] 46538 Given 07/25/2009 Influenza Virus Vaccine, Pandemic Formulation [id number] 50718 Given 07/25/2009 Administration Swine Flu Shot 04720 Given 04/12/2008 Influenza Virus 3Yrs & Over 06721 Given 04/12/2008 Influenza Virus 3Yrs & Over 63706 Given 04/25/2007 Influenza Virus 3Yrs & Over 84308 Given 11/06/2002 Td (History By Patient) 85183 Given 10/22/2002 Pneumovax (History By Patient) Vital Signs Date Vital Result Comment 11/09/2017 Weight 167.00 lb with shoes Heart Rate 60 /min BP Systolic Sitting 130 mmHg Lue reg cuff BP Diastolic Sitting 70 mmHg Lue reg cuff BP Systolic Standing 130 mmHg Lue reg cuff BP Diastolic Standing 78 mmHg Lue reg cuff Respiratory Rate 20 /min Ejection Fraction 55-60% date 07/22/15 ECHO 10/28/2017 Height 68.25 inches 5'8.25" Heart Rate 68 /min BP Systolic 118 mmHg BP Diastolic 62 mmHg Respiratory Rate 16 /min Body Temperature 98.0 F Pain Level 4 08/01/2017 Height 68.25 inches 5'8.25" Weight 172.00 lb Heart Rate 61 /min BP Systolic Sitting 154 mmHg BP Diastolic Sitting 86 mmHg Body Temperature 97.2 F O2 % BldC Oximetry 98 % BMI (Body Mass Index) 26.0 kg/m2 07/29/2017 Height 70 inches 5'10" Weight 160.00 lb Heart Rate 56 /min BP Systolic 150 mmHg BP Diastolic 94 mmHg BMI (Body Mass Index) 23.0 kg/m2 05/30/2017 Weight 164.50 lb Heart Rate 54 /min BP Systolic Sitting 160 mmHg BP Diastolic Sitting 98 mmHg Body Temperature 98.5 F O2 % BldC Oximetry 97 % 04/28/2017 Weight 163.00 lb Heart Rate 60 /min BP Systolic Sitting 145 mmHg BP Diastolic Sitting 78 mmHg Body Temperature 96.8 F Pain Level 0 O2 % BldC Oximetry 97 % 04/27/2017 Height 70 inches 5'10" Weight 167.00 lb Heart Rate 60 /min BP Systolic 130 mmHg BP Diastolic 68 mmHg Body Temperature 97.9 F Pain Level 0 BMI (Body Mass Index) 24.0 kg/m2 01/24/2017 Height 70 inches 5'10" Weight 167.00 lb Heart Rate 77 /min BP Systolic 139 mmHg BP Diastolic 85 mmHg Respiratory Rate 16 /min Body Temperature 98.7 F BMI (Body Mass Index) 24.0 kg/m2 12/24/2016 Height 70 inches 5'10" Weight 167.00 lb Heart Rate 67 /min BP Systolic 144 mmHg BP Diastolic 84 mmHg Body Temperature 97.5 F O2 % BldC Oximetry 95 % BMI (Body Mass Index) 24.0 kg/m2 12/08/2016 Height 70 inches 5'10" Weight 165.56 lb Heart Rate 85 /min BP Systolic 120 mmHg BP Diastolic 80 mmHg Body Temperature 97.7 F O2 % BldC Oximetry 96 % BMI (Body Mass Index) 23.8 kg/m2 10/27/2016 Height 70 inches 5'10" Weight 167.00 lb Heart Rate 95 /min BP Systolic 141 mmHg BP Diastolic 84 mmHg Body Temperature 96.8 F Pain Level 5 BMI (Body Mass Index) 24.0 kg/m2 10/22/2016 Height 70 inches 5'10" Weight 170.00 lb with shoes Heart Rate 76 /min BP Systolic Sitting 130 mmHg Lue reg cuff BP Diastolic Sitting 90 mmHg Lue reg cuff BP Systolic Standing 134 mmHg Lue reg cuff BP Diastolic Standing 90 mmHg Lue reg cuff Respiratory Rate 17 /min BMI (Body Mass Index) 24.4 kg/m2 Ejection Fraction 55-60% date 07/22/15 ECHO 09/23/2016 Weight 172.38 lb Heart Rate 65 /min BP Systolic Sitting 164 mmHg BP Diastolic Sitting 82 mmHg Body Temperature 97.0 F O2 % BldC Oximetry 97 % 07/28/2016 Heart Rate 71 /min BP Systolic 133 mmHg BP Diastolic 72 mmHg Pain Level 7 05/24/2016 Weight 183.12 lb Heart Rate 75 /min BP Systolic 120 mmHg BP Diastolic 68 mmHg Body Temperature 97.8 F O2 % BldC Oximetry 95 % 03/29/2016 Heart Rate 76 /min BP Systolic 147 mmHg BP Diastolic 91 mmHg Pain Level 7 02/18/2016 Weight 184.00 lb with shoes Heart Rate 90 /min BP Systolic Sitting 120 mmHg BP Diastolic Sitting 72 mmHg Body Temperature 95.0 F O2 % BldC Oximetry 95 % 02/03/2016 Height 67.50 inches 5'7.50" Weight 167.50 lb Heart Rate 73 /min BP Systolic 140 mmHg BP Diastolic 62 mmHg Body Temperature 97.2 F O2 % BldC Oximetry 93 % BMI (Body Mass Index) 25.8 kg/m2 12/26/2015 Height 70 inches 5'10" Weight 170.00 lb Pain Level 7 BMI (Body Mass Index) 24.4 kg/m2 10/23/2015 Weight 170.00 lb Heart Rate 100 /min BP Systolic Sitting 122 mmHg LA reg cuff BP Diastolic Sitting 84 mmHg LA reg cuff BP Systolic Standing 124 mmHg LA BP Diastolic Standing 82 mmHg LA Respiratory Rate 24 /min O2 % BldC Oximetry 91 % Ejection Fraction 55-60% 07/22/15 10/22/2015 Weight 173.00 lb Heart Rate 91 /min BP Systolic Sitting 128 mmHg BP Diastolic Sitting 88 mmHg Respiratory Rate 18 /min Body Temperature 98.2 F O2 % BldC Oximetry 95 % 09/30/2015 Heart Rate 93 /min BP Systolic Sitting 124 mmHg BP Diastolic Sitting 82 mmHg Body Temperature 98.1 F O2 % BldC Oximetry 93 % 09/24/2015 Height 70 inches 5'10" Weight 183.00 lb Pain Level 9 BMI (Body Mass Index) 26.3 kg/m2 09/19/2015 Heart Rate 79 /min BP Systolic Sitting 117 mmHg BP Diastolic Sitting 69 mmHg Body Temperature 97.3 F 09/04/2015 Height 70 inches 5'10" Weight 183.00 lb with shoes Heart Rate 108 /min BP Systolic Sitting 98 mmHg LA reg cuff BP Diastolic Sitting 72 mmHg LA reg cuff Respiratory Rate 26 /min BMI (Body Mass Index) 26.3 kg/m2 Ejection Fraction 55-60% 07/22/15 08/21/2015 Heart Rate 52 /min BP Systolic Sitting 111 mmHg BP Diastolic Sitting 77 mmHg Body Temperature 97.0 F 08/12/2015 Height 70 inches 5'10" Heart Rate 148 /min BP Systolic 86 mmHg BP Diastolic 60 mmHg Body Temperature 97.8 F O2 % BldC Oximetry 96 % 07/15/2015 Height 70 inches 5'10" Weight 188.00 lb Heart Rate 70 /min BP Systolic 97 mmHg BP Diastolic 66 mmHg Body Temperature 97.1 F O2 % BldC Oximetry 98 % BMI (Body Mass Index) 27.0 kg/m2 06/30/2015 Height 70 inches 5'10" Weight 183.00 lb Heart Rate 70 /min BP Systolic 90 mmHg BP Diastolic 60 mmHg Body Temperature 97.2 F O2 % BldC Oximetry 98 % BMI (Body Mass Index) 26.3 kg/m2 06/16/2015 Height 70 inches 5'10" Weight 180.00 lb Pain Level 0 at this time BMI (Body Mass Index) 25.8 kg/m2 04/28/2015 Height 70 inches 5'10" Weight 180.00 lb Pain Level 8 BMI (Body Mass Index) 25.8 kg/m2 03/31/2015 Height 70 inches 5'10" Weight 180.00 lb Pain Level 0 BMI (Body Mass Index) 25.8 kg/m2 02/05/2015 Height 70 inches 5'10" Weight 180.25 lb Heart Rate 63 /min BP Systolic Sitting 118 mmHg BP Diastolic Sitting 66 mmHg Respiratory Rate 24 /min Body Temperature 95.0 F O2 % BldC Oximetry 96 % BMI (Body Mass Index) 25.9 kg/m2 01/31/2015 Height 70 inches 5'10" Weight 180.00 lb Heart Rate 56 /min BP Systolic Sitting 116 mmHg BP Diastolic Sitting 62 mmHg Body Temperature 97.4 F O2 % BldC Oximetry 96 % BMI (Body Mass Index) 25.8 kg/m2 11/26/2014 Height 70 inches 5'10" Weight 185.50 lb Heart Rate 56 /min BP Systolic Sitting 130 mmHg BP Diastolic Sitting 72 mmHg Respiratory Rate 18 /min Body Temperature 96.4 F O2 % BldC Oximetry 94 % Room air. BMI (Body Mass Index) 26.6 kg/m2 11/13/2014 Height 70 inches 5'10" Weight 186.00 lb Heart Rate 80 /min BP Systolic Sitting 130 mmHg BP Diastolic Sitting 64 mmHg Respiratory Rate 18 /min O2 % BldC Oximetry 92 % BMI (Body Mass Index) 26.7 kg/m2 07/09/2014 Weight 183.50 lb Heart Rate 54 /min BP Systolic Sitting 104 mmHg BP Diastolic Sitting 60 mmHg Body Temperature 97.7 F 06/24/2014 Height 68 inches 5'8" Weight 181.00 lb Heart Rate 56 /min BP Systolic Sitting 102 mmHg left arm, reg cuff BP Diastolic Sitting 64 mmHg left arm, reg cuff Respiratory Rate 20 /min Body Temperature 97.6 F O2 % BldC Oximetry 95 % Room air BMI (Body Mass Index) 27.5 kg/m2 Neck Circumference in inches 15.75 02/28/2014 Height 68 inches 5'8" Weight 179.00 lb without shoes Heart Rate 58 /min BP Systolic 124 mmHg Ra reg cuff Stand BP Diastolic 70 mmHg Ra reg cuff Stand BP Systolic Sitting 112 mmHg Ra reg cuff Sit BP Diastolic Sitting 70 mmHg Ra reg cuff Sit Respiratory Rate 14 /min BMI (Body Mass Index) 27.2 kg/m2 02/25/2014 Heart Rate 50 /min O2 % BldC Oximetry 94 % 01/01/2014 Height 68.75 inches 5'8.75" Weight 186.00 lb Heart Rate 60 /min BP Systolic Sitting 122 mmHg BP Diastolic Sitting 72 mmHg BMI (Body Mass Index) 27.7 kg/m2 12/13/2013 Height 68.75 inches 5'8.75" Weight 184.50 lb Heart Rate 56 /min BP Systolic Sitting 110 mmHg BP Diastolic Sitting 68 mmHg Body Temperature 97.1 F BMI (Body Mass Index) 27.4 kg/m2 08/31/2013 Weight 190.00 lb refused to remove shoes Heart Rate 62 /min BP Systolic Sitting 132 mmHg BP Diastolic Sitting 78 mmHg Body Temperature 97.1 F O2 % BldC Oximetry 92 % 12/04/2012 Height 68.75 inches 5'8.75" Weight 183.00 lb Heart Rate 60 /min BP Systolic Sitting 116 mmHg irregular BP Diastolic Sitting 64 mmHg irregular O2 % BldC Oximetry 94 % BMI (Body Mass Index) 27.2 kg/m2 06/05/2012 Height 68.75 inches 5'8.75" Weight 188.00 lb Heart Rate 52 /min BP Systolic Sitting 150 mmHg BP Diastolic Sitting 86 mmHg BMI (Body Mass Index) 28.0 kg/m2 05/17/2012 BP Systolic Sitting 112 mmHg 126/60 manual BP Diastolic Sitting 78 mmHg 126/60 manual 04/05/2012 Height 68.75 inches 5'8.75" Weight 182.00 lb Heart Rate 72 /min irregular BP Systolic Sitting 108 mmHg BP Diastolic Sitting 64 mmHg Body Temperature 95.8 F O2 % BldC Oximetry 85 % BMI (Body Mass Index) 27.1 kg/m2 03/17/2012 Height 68.75 inches 5'8.75" Weight 185.00 lb Heart Rate 65 /min BP Systolic Sitting 108 mmHg BP Diastolic Sitting 68 mmHg Body Temperature 97.0 F O2 % BldC Oximetry 97 % BMI (Body Mass Index) 27.5 kg/m2 03/10/2012 Height 68.75 inches 5'8.75" Weight 187.00 lb Heart Rate 76 /min BP Systolic Sitting 120 mmHg BP Diastolic Sitting 78 mmHg Respiratory Rate 24 /min Body Temperature 99.0 F O2 % BldC Oximetry 97 % BMI (Body Mass Index) 27.8 kg/m2 01/03/2012 Height 68.75 inches 5'8.75" Weight 190.00 lb Heart Rate 64 /min BP Systolic Sitting 122 mmHg BP Diastolic Sitting 72 mmHg BMI (Body Mass Index) 28.3 kg/m2 12/24/2011 Height 69 inches 5'9" Weight 190.00 lb Heart Rate 62 /min BP Systolic Sitting 118 mmHg BP Diastolic Sitting 76 mmHg BMI (Body Mass Index) 28.1 kg/m2 12/15/2011 Height 69 inches 5'9" Weight 195.00 lb Heart Rate 70 /min BP Systolic Sitting 110 mmHg BP Diastolic Sitting 84 mmHg BP Systolic Lying Down 119 mmHg on pts wrist machine pulse was 52 BP Diastolic Lying Down 92 mmHg on pts wrist machine pulse was 52 O2 % BldC Oximetry 92 % BMI (Body Mass Index) 28.8 kg/m2 12/03/2011 Height 69 inches 5'9" Weight 193.00 lb Heart Rate 64 /min BP Systolic Sitting 143 mmHg BP Diastolic Sitting 96 mmHg O2 % BldC Oximetry 94 % BMI (Body Mass Index) 28.5 kg/m2 05/26/2011 Weight 192.00 lb Heart Rate 78 /min BP Systolic Sitting 130 mmHg BP Diastolic Sitting 84 mmHg 11/23/2010 Weight 198.00 lb Heart Rate 70 /min Irregular BP Systolic Sitting 140 mmHg BP Diastolic Sitting 80 mmHg 08/25/2010 Weight 197.00 lb Heart Rate 84 /min BP Systolic Sitting 134 mmHg BP Diastolic Sitting 74 mmHg O2 % BldC Oximetry 91 % 1st reading 87 05/25/2010 Weight 198.00 lb Heart Rate 75 /min BP Systolic Sitting 148 mmHg BP Diastolic Sitting 78 mmHg O2 % BldC Oximetry 88 % 11/19/2009 Weight 193.00 lb Heart Rate 50 /min BP Systolic Sitting 130 mmHg BP Diastolic Sitting 84 mmHg 10/22/2009 Weight 194.00 lb down 7# Heart Rate 68 /min BP Systolic Sitting 116 mmHg BP Diastolic Sitting 64 mmHg Body Temperature 99.1 F O2 % BldC Oximetry 92 % 05/21/2009 Weight 201.00 lb Heart Rate 60 /min BP Systolic Sitting 154 mmHg BP Diastolic Sitting 86 mmHg 03/05/2009 Height 70 inches 5'10" Weight 197.00 lb down 3# Heart Rate 60 /min BP Systolic Sitting 144 mmHg BP Diastolic Sitting 82 mmHg BMI (Body Mass Index) 28.3 kg/m2 02/20/2009 Height 70 inches 5'10" Weight 200.00 lb up 5# Heart Rate 60 /min BP Systolic Sitting 144 mmHg BP Diastolic Sitting 84 mmHg BMI (Body Mass Index) 28.7 kg/m2 11/20/2008 Height 70 inches 5'10" Weight 195.00 lb Heart Rate 60 /min BP Systolic Sitting 160 mmHg BP Diastolic Sitting 90 mmHg BMI (Body Mass Index) 28.0 kg/m2 10/21/2008 Weight 193.00 lb Heart Rate 72 /min BP Systolic Sitting 120 mmHg BP Diastolic Sitting 76 mmHg O2 % BldC Oximetry 92 % 06/05/2008 Height 70 inches 5'10" Weight 201.00 lb Heart Rate 64 /min BP Systolic Sitting 126 mmHg BP Diastolic Sitting 78 mmHg BMI (Body Mass Index) 28.8 kg/m2 01/10/2008 Height 70 inches 5'10" Weight 202.00 lb Heart Rate 64 /min BP Systolic Sitting 110 mmHg BP Diastolic Sitting 76 mmHg O2 % BldC Oximetry 95 % P 68 Post Exercise: 91 P 113 BMI (Body Mass Index) 29.0 kg/m2 12/13/2007 Height 70 inches 5'10" Weight 201.00 lb down 6# Heart Rate 80 /min BP Systolic Sitting 114 mmHg BP Diastolic Sitting 74 mmHg Body Temperature 98.4 F O2 % BldC Oximetry 94 % BMI (Body Mass Index) 28.8 kg/m2 11/22/2007 Height 70 inches 5'10" Weight 207.00 lb Heart Rate 72 /min BP Systolic Sitting 144 mmHg BP Diastolic Sitting 86 mmHg BMI (Body Mass Index) 29.7 kg/m2 09/12/2007 Height 70 inches 5'10" Weight 206.00 lb Heart Rate 76 /min BP Systolic Sitting 140 mmHg BP Diastolic Sitting 80 mmHg BMI (Body Mass Index) 29.6 kg/m2 08/01/2007 Height 70 inches 5'10" Weight 204.00 lb Heart Rate 72 /min pulse irregular BP Systolic Sitting 140 mmHg BP Diastolic Sitting 90 mmHg BMI (Body Mass Index) 29.3 kg/m2 07/19/2007 Height 70 inches 5'10" Weight 208.00 lb Heart Rate 64 /min BP Systolic Sitting 142 mmHg BP Diastolic Sitting 84 mmHg O2 % BldC Oximetry 96 % 94 after exercise BMI (Body Mass Index) 29.8 kg/m2 05/24/2007 Height 70 inches 5'10" Weight 204.00 lb Heart Rate 80 /min BP Systolic Sitting 120 mmHg BP Diastolic Sitting 80 mmHg BMI (Body Mass Index) 29.3 kg/m2 03/01/2007 Height 70 inches 5'10" Weight 200.00 lb Heart Rate 65 /min BP Systolic Sitting 126 mmHg BP Diastolic Sitting 84 mmHg BMI (Body Mass Index) 28.7 kg/m2 02/16/2007 Height 70 inches 5'10" Weight 198.00 lb Heart Rate 74 /min BP Systolic Sitting 132 mmHg BP Diastolic Sitting 82 mmHg BMI (Body Mass Index) 28.4 kg/m2 Results Test Date Test Result H/L Range Note Laboratory test 11/09/2017 Digoxin <pending> finding Urine Microalbumin 08/01/2017 Ur Microalbumin (mg/L) 30.3 mg/L 1 Random Urine Creatinine 88.50 mg/dL 1 Urine Microalbumin/Creatinine 34.2 ug/mg High <31 1 Vitamin B12 And Folate Serum 07/27/2017 Vitamin B12 162 pg/mL Low 180-914 2 Folic Acid (Folate) 16.91 ng/mL >3.99 3 Laboratory test finding 07/27/2017 TSH (Thyroid Stim Horm) 0.81 mcIU/mL 0.34-5.60 4 Comp Metabolic Panel 07/27/2017 Sodium 140 mmol/L 133-145 Potassium 3.8 mmol/L 3.5-5.0 Chloride 104 mmol/L 101-111 Co2 Carbon Dioxide 31 mmol/L 22-32 Anion Gap 5 mmol/L 2-11 Glucose 162 mg/dL High 70-100 Blood Urea Nitrogen 11 mg/dL 6-24 Creatinine 0.65 mg/dL Low 0.67-1.17 BUN/Creatinine Ratio 16.9 8-20 Calcium 9.5 mg/dL 8.6-10.3 Total Protein 6.0 g/dL Low 6.4-8.9 Albumin 3.9 g/dL 3.2-5.2 Globulin 2.1 g/dL 2-4 Albumin/Globulin Ratio 1.9 1-3 Total Bilirubin 1.30 mg/dL High 0.2-1.0 Alkaline Phosphatase 65 U/L 34-104 Alt 13 U/L 7-52 Ast 20 U/L 13-39 Egfr Non- 116.2 >60 Egfr 149.4 >60 5 Lipid Profile (Trig/Chol/HDL) 07/27/2017 Triglycerides 89 mg/dL 6 Cholesterol 156 mg/dL 7 HDL Cholesterol 45.3 mg/dL 8 LDL Cholesterol 93 mg/dL 9 Laboratory test 07/27/2017 Hemoglobin A1c 6.4 % High 4.0-5.6 10 finding (Glyco HGB) Wound Culture/Sensi 12/27/2016 Wound/Misc SEE RESULT 11, 12 Culture-Gram Stain BELOW Laboratory test 12/24/2016 Hemoglobin A1c 6.8 5-7 finding Basic Metabolic 12/21/2016 Sodium 139 mmol/L 133-145 Panel Potassium 3.7 mmol/L 3.5-5.0 Chloride 101 mmol/L 101-111 Co2 Carbon Dioxide 31 mmol/L 22-32 Anion Gap 7 mmol/L 2-11 Glucose 166 mg/dL High 70-100 Blood Urea Nitrogen 9 mg/dL 6-24 Creatinine 0.66 mg/dL Low 0.67-1.17 BUN/Creatinine Ratio 13.6 8-20 Calcium 9.2 mg/dL 8.6-10.3 Egfr Non- 114.2 >60 Egfr 146.8 >60 13 Basic Metabolic Panel 09/14/2016 Sodium 141 mmol/L 133-145 Potassium 3.8 mmol/L 3.5-5.0 Chloride 103 mmol/L 101-111 Co2 Carbon Dioxide 32 mmol/L 22-32 Anion Gap 6 mmol/L 2-11 Glucose 252 mg/dL High 70-100 Blood Urea Nitrogen 15 mg/dL 6-24 Creatinine 0.68 mg/dL 0.67-1.17 BUN/Creatinine Ratio 22.1 High 8-20 Calcium 9.2 mg/dL 8.6-10.3 Egfr Non- 110.6 >60 Egfr 142.2 >60 14 Laboratory test 09/14/2016 Hemoglobin A1c 9.0 % High Less than 6.0 15 finding (Glyco HGB) Urine Microalbumin 09/14/2016 Urine Creatinine 145.57 mg/dL Random Ur Microalbumin (mg/L) 92.7 mg/L Urine Microalbumin/Creatinine 63.6 ug/mg High <31 Basic Metabolic Panel 08/16/2016 Sodium 135 mmol/L 133-145 Potassium 4.4 mmol/L 3.5-5.0 Chloride 98 mmol/L Low 101-111 Co2 Carbon Dioxide 32 mmol/L 22-32 Anion Gap 5 mmol/L 2-11 Glucose 377 mg/dL High 70-100 Blood Urea Nitrogen 22 mg/dL 6-24 Creatinine 0.78 mg/dL 0.67-1.17 BUN/Creatinine Ratio 28.2 High 8-20 Calcium 9.7 mg/dL 8.6-10.3 Egfr Non- 94.4 >60 Egfr 121.4 >60 16 Laboratory test 08/16/2016 Digoxin 0.6 ng/ml Low 0.8-2.0 17 finding Laboratory test 05/17/2016 Hemoglobin A1c 7.8 % High Less than 6.0 18 finding (Glyco HGB) Basic Metabolic Panel 05/17/2016 Sodium 139 mmol/L 133-145 Potassium 3.6 mmol/L 3.5-5.0 Chloride 100 mmol/L Low 101-111 Co2 Carbon Dioxide 31 mmol/L 22-32 Anion Gap 8 mmol/L 2-11 Glucose 196 mg/dL High 70-100 Blood Urea Nitrogen 18 mg/dL 6-24 Creatinine 0.85 mg/dL 0.67-1.17 BUN/Creatinine Ratio 21.2 High 8-20 Calcium 9.4 mg/dL 8.6-10.3 Egfr Non- 85.5 >60 Egfr 109.9 >60 19 Laboratory test 02/03/2016 Hemoglobin A1c 8.3 % High Less than 6.0 20 finding (Glyco HGB) Basic Metabolic Panel 02/03/2016 Sodium 139 mmol/L 133-145 Potassium 3.5 mmol/L 3.5-5.0 Chloride 100 mmol/L Low 101-111 Co2 Carbon Dioxide 31 mmol/L 22-32 Anion Gap 8 mmol/L 2-11 Glucose 198 mg/dL High 70-100 Blood Urea Nitrogen 12 mg/dL 6-24 Creatinine 0.74 mg/dL 0.67-1.17 BUN/Creatinine Ratio 16.2 8-20 Calcium 9.6 mg/dL 8.6-10.3 Egfr Non- 100.3 >60 Egfr 129.0 >60 21 Lipid Profile (Trig/Chol/HDL) 01/30/2016 Triglycerides 85 mg/dL 22 Cholesterol 137 mg/dL 23 HDL Cholesterol 47.5 mg/dL 24 LDL Cholesterol 73 mg/dL 25 Basic Metabolic Panel 10/16/2015 Sodium 137 mmol/L 133-145 Potassium 3.4 mmol/L Low 3.5-5.0 Chloride 99 mmol/L Low 101-111 Co2 Carbon Dioxide 28 mmol/L 22-32 Anion Gap 10 mmol/L 2-11 Glucose 216 mg/dL High 70-100 Blood Urea Nitrogen 11 mg/dL 6-24 Creatinine 0.57 mg/dL Low 0.67-1.17 BUN/Creatinine Ratio 19.3 8-20 Calcium 9.1 mg/dL 8.6-10.3 Egfr Non- 135.9 >60 Egfr 174.7 >60 26 Laboratory test 10/16/2015 B-Type Natriuretic 212 pg/mL High 27 finding Peptide BNP CBC Auto Diff 09/27/2015 White Blood Count 14.2 10^3/uL High 3.5-10.8 Red Blood Count 4.03 10^6/uL 4.0-5.4 Hemoglobin 13.5 g/dL Low 14.0-18.0 Hematocrit 41 % Low 42-52 Mean Corpuscular Volume 102 fL High 80-94 Mean Corpuscular Hemoglobin 33 pg High 27-31 Mean Corpuscular HGB Conc 33 g/dL 31-36 Red Cell Distribution Width 15 % 10.5-15 Platelet Count 259 10^3/uL 150-450 Mean Platelet Volume 9 um3 7.4-10.4 Abs Neutrophils 11.0 10^3/uL High 1.5-7.7 Abs Lymphocytes 2.3 10^3/uL 1.0-4.8 Abs Monocytes 0.7 10^3/uL 0-0.8 Abs Eosinophils 0.1 10^3/uL 0-0.6 Abs Basophils 0.1 10^3/uL 0-0.2 Abs Nucleated RBC 0.01 10^3/uL Granulocyte % 77.4 % 38-83 Lymphocyte % 16.1 % Low 25-47 Monocyte % 5.1 % 1-9 Eosinophil % 0.4 % 0-6 Basophil % 1.0 % 0-2 Nucleated Red Blood Cells % 0 Comp Metabolic Panel 09/27/2015 Sodium 140 mmol/L 133-145 Potassium 4.5 mmol/L 3.5-5.0 Chloride 102 mmol/L 101-111 Co2 Carbon Dioxide 32 mmol/L 22-32 Anion Gap 6 mmol/L 2-11 Glucose 156 mg/dL High 70-100 Blood Urea Nitrogen 11 mg/dL 6-24 Creatinine 0.54 mg/dL Low 0.67-1.17 BUN/Creatinine Ratio 20.4 High 8-20 Calcium 9.3 mg/dL 8.6-10.3 Total Protein 5.9 g/dL Low 6.4-8.9 Albumin 3.5 g/dL 3.2-5.2 Globulin 2.4 g/dL 2-4 Albumin/Globulin Ratio 1.5 1-3 Total Bilirubin 1.00 mg/dL 0.2-1.0 Alkaline Phosphatase 66 U/L 34-104 Alt 8 U/L 7-52 Ast 15 U/L 13-39 Egfr Non- 144.6 >60 Egfr 186.0 >60 28 Laboratory test finding 09/27/2015 C Reactive Protein 5.65 mg/L High < 5.00 29 B-Type Natriuretic Peptide BNP 305 pg/mL High 30 Basic Metabolic Panel 09/19/2015 Sodium 140 mmol/L 133-145 Potassium 4.0 mmol/L 3.5-5.0 Chloride 103 mmol/L 101-111 Co2 Carbon Dioxide 30 mmol/L 22-32 Anion Gap 7 mmol/L 2-11 Glucose 131 mg/dL High 70-100 Blood Urea Nitrogen 12 mg/dL 6-24 Creatinine 0.59 mg/dL Low 0.67-1.17 BUN/Creatinine Ratio 20.3 High 8-20 Calcium 8.8 mg/dL 8.6-10.3 Egfr Non- 130.6 >60 Egfr 167.9 >60 31 Laboratory test finding 08/12/2015 Hemoglobin A1c 6.8 5-7 Arterial Blood Gas 07/21/2015 O2 Device nasal cannula Fio2 28 PH Arterial 7.46 High 7.35-7.45 Pco2 Arterial 32 mmHg Low 35-45 Po2 Arterial 122 mmHg High 80-100 O2 Saturation Arterial 99.2 % High 95-98 Base Excess Arterial -0.2 -2.0-2.0 32 Hco3 Arterial 24.7 mmol/L 19-31 CBC Auto Diff 07/21/2015 White Blood Count 9.5 10^3/uL 3.5-10.8 Red Blood Count 4.74 10^6/uL 4.0-5.4 Hemoglobin 15.9 g/dL 14.0-18.0 Hematocrit 47 % 42-52 Mean Corpuscular Volume 100 fL High 80-94 Mean Corpuscular Hemoglobin 34 pg High 27-31 Mean Corpuscular HGB Conc 34 g/dL 31-36 Red Cell Distribution Width 13 % 10.5-15 Platelet Count 139 10^3/uL Low 150-450 Mean Platelet Volume 8 um3 7.4-10.4 Abs Neutrophils 7.8 10^3/uL High 1.5-7.7 Abs Lymphocytes 0.9 10^3/uL Low 1.0-4.8 Abs Monocytes 0.7 10^3/uL 0-0.8 Abs Eosinophils 0.1 10^3/uL 0-0.6 Abs Basophils 0 10^3/uL 0-0.2 Abs Nucleated RBC 0 10^3/uL Granulocyte % 82.0 % 38-83 Lymphocyte % 9.3 % Low 25-47 Monocyte % 7.0 % 1-9 Eosinophil % 1.4 % 0-6 Basophil % 0.3 % 0-2 Nucleated Red Blood Cells % 0 Laboratory test finding 07/21/2015 Lactic Acid 1.1 mmol/L 0.5-2.0 33 Inr/Protime 07/21/2015 Inr 1.15 High 0.89-1.11 Laboratory test finding 07/21/2015 Partial Thrombo Time 28.7 seconds 26.0 -36.3 PTT Comp Metabolic Panel 07/21/2015 Sodium 127 mmol/L Low 133-145 Potassium 4.2 mmol/L 3.5-5.0 Chloride 92 mmol/L Low 101-111 Co2 Carbon Dioxide 27 mmol/L 22-32 Anion Gap 8 mmol/L 2-11 Glucose 138 mg/dL High 70-100 Blood Urea Nitrogen 17 mg/dL 6-24 Creatinine 0.76 mg/dL 0.67-1.17 BUN/Creatinine Ratio 22.4 High 8-20 Calcium 9.1 mg/dL 8.6-10.3 Total Protein 6.3 g/dL Low 6.4-8.9 Albumin 3.6 g/dL 3.2-5.2 Globulin 2.7 g/dL 2-4 Albumin/Globulin Ratio 1.3 1-3 Total Bilirubin 1.50 mg/dL High 0.2-1.0 Alkaline Phosphatase 63 U/L 34-104 Alt 19 U/L 7-52 Ast 22 U/L 13-39 Egfr Non- 97.5 >60 Egfr 125.4 >60 34 Laboratory test finding 07/21/2015 Troponin-I (TnI) 0.00 ng/mL <0.03 35 B-Type Natriuretic Peptide BNP 135 pg/mL High 36 Urinalysis Profile 07/21/2015 Urine Color [place] Urine Appearance Clear Urine Specific [place] 1.020 1.010-1.030 Urine pH 6.0 5-9 Urine Urobilinogen Positive Negative Urine Ketones 1+ Negative Urine Protein Negative Negative Urine Leukocytes Negative Negative Urine Blood Negative Negative * * Negative 37 Urine Nitrite Negative Negative Urine Bilirubin Negative Negative Urine Glucose Negative Negative Laboratory test finding 07/21/2015 TSH (Thyroid Stim Horm) 0.96 ?IU/mL 0.34-5.60 Blood Culture SEE RESULT BELOW 38 CBC Auto Diff 07/17/2015 White Blood Count 9.8 10^3/uL 3.5-10.8 Red Blood Count 4.80 10^6/uL 4.0-5.4 Hemoglobin 16.4 g/dL 14.0-18.0 Hematocrit 49 % 42-52 Mean Corpuscular Volume 101 fL High 80-94 Mean Corpuscular Hemoglobin 34 pg High 27-31 Mean Corpuscular HGB Conc 34 g/dL 31-36 Red Cell Distribution Width 13 % 10.5-15 Platelet Count 144 10^3/uL Low 150-450 Mean Platelet Volume 8 um3 7.4-10.4 Abs Neutrophils 7.3 10^3/uL 1.5-7.7 Abs Lymphocytes 1.4 10^3/uL 1.0-4.8 Abs Monocytes 0.9 10^3/uL High 0-0.8 Abs Eosinophils 0.1 10^3/uL 0-0.6 Abs Basophils 0 10^3/uL 0-0.2 Abs Nucleated RBC 0.01 10^3/uL Granulocyte % 74.9 % 38-83 Lymphocyte % 14.4 % Low 25-47 Monocyte % 9.4 % High 1-9 Eosinophil % 1.0 % 0-6 Basophil % 0.3 % 0-2 Nucleated Red Blood Cells % 0.1 Venous Blood Gas 07/17/2015 Venous Blood pH 7.32 Low 7.33-7.43 Venous Pco2 60 mmHg High 41-51 Venous Po2 33 mmHg Low 35-45 Venous O2 Saturation 59.6 % Low 70-80 Venous Blood Base Excess 2.8 0-4 39 Venous Bicarbonate Hco3 25.8 mmol/L 24-28 Laboratory test finding 07/17/2015 Lactic Acid 1.3 mmol/L 0.5-2.0 40 Comp Metabolic Panel 07/17/2015 Sodium 131 mmol/L Low 133-145 Potassium 3.6 mmol/L 3.5-5.0 Chloride 94 mmol/L Low 101-111 Co2 Carbon Dioxide 30 mmol/L 22-32 Anion Gap 7 mmol/L 2-11 Glucose 115 mg/dL High 70-100 Blood Urea Nitrogen 11 mg/dL 6-24 Creatinine 0.66 mg/dL Low 0.67-1.17 BUN/Creatinine Ratio 16.7 8-20 Calcium 9.4 mg/dL 8.6-10.3 Total Protein 6.9 g/dL 6.4-8.9 Albumin 4.1 g/dL 3.2-5.2 Globulin 2.8 g/dL 2-4 Albumin/Globulin Ratio 1.5 1-3 Total Bilirubin 1.20 mg/dL High 0.2-1.0 Alkaline Phosphatase 66 U/L 34-104 Alt 17 U/L 7-52 Ast 16 U/L 13-39 Egfr Non- 114.7 >60 Egfr 147.5 >60 41 Laboratory test finding 07/17/2015 Troponin-I (TnI) 0.00 ng/mL <0.03 42 B-Type Natriuretic Peptide BNP 255 pg/mL High 43 Blood Culture SEE RESULT BELOW 44 Laboratory test 07/15/2015 PSA Screening 17.570 ng/mL High 0-4.000 45 finding Laboratory test 07/15/2015 Urine Culture And SEE RESULT 46 finding Sensitivities BELOW Ua Routine 07/15/2015 Ua Specific [place] 1.010 Ua PH 5 Ua Color chelle Ua Appera cloudy Ua WBC large Ua Protein trace Ua Glucose negative Ua Ketones negative Ua Bilirubin negative Ua Urobilinogen normal Ua Nitrite positive Ua Occult Blood large ++ Ua Routine 06/30/2015 Ua Specific [place] 1.015 Ua PH 7 Ua Color chelle Ua Appera clear Ua WBC negative Ua Protein negative Ua Glucose negative Ua Ketones negative Ua Bilirubin negative Ua Urobilinogen normal Ua Nitrite negative Ua Occult Blood negative Laboratory test 06/23/2015 Urine Culture And SEE RESULT BELOW 47 finding Sensitivities Laboratory test 02/01/2015 B-Type Natriuretic 237 pg/mL High 48 finding Peptide BNP Lactic Acid 1.7 mmol/L 0.5-2.2 Blood Culture SEE RESULT BELOW 49 CKMB 02/01/2015 CKMB ng/mL 1.8 ng/mL 0.6-6.3 Laboratory test finding 02/01/2015 Magnesium 1.8 mg/dL Low 1.9-2.7 Creatine Kinase(CK) 32 U/L 10-223 Troponin-I (TnI) 0.00 ng/mL <0.03 50 Comp Metabolic Panel 02/01/2015 Sodium 134 mmol/L 133-145 Potassium 3.5 mmol/L 3.5-5.0 Chloride 98 mmol/L Low 101-111 Co2 Carbon Dioxide 28 mmol/L 22-32 Anion Gap 8 mmol/L 2-11 Glucose 100 mg/dL 70-100 Blood Urea Nitrogen 13 mg/dL 6-24 Creatinine 0.65 mg/dL Low 0.67-1.17 BUN/Creatinine Ratio 20.0 8-20 Calcium 9.2 mg/dL 8.6-10.3 Total Protein 6.3 g/dL Low 6.4-8.9 Albumin 4.0 g/dL 3.2-5.2 Globulin 2.3 g/dL 2-4 Albumin/Globulin Ratio 1.7 1-3 Total Bilirubin 1.00 mg/dL 0.2-1.0 Alkaline Phosphatase 82 U/L 34-104 Alt 13 U/L 7-52 Ast 19 U/L 13-39 Egfr Non- 116.8 >60 Egfr 150.1 >60 51 CBC Auto Diff 02/01/2015 White Blood Count 11.9 10^3/uL High 4.8-10.8 Red Blood Count 4.89 10^6/uL 4.0-5.4 Hemoglobin 15.9 g/dL 14.0-18.0 Hematocrit 48 % 42-52 Mean Corpuscular Volume 98 fL High 80-94 Mean Corpuscular Hemoglobin 33 pg High 27-31 Mean Corpuscular HGB Conc 33 g/dL 31-36 Red Cell Distribution Width 13 % 10.5-15 Platelet Count 151 10^3/uL 150-450 Mean Platelet Volume 9 um3 7.4-10.4 Abs Neutrophils 5.8 10^3/uL 1.5-7.7 Abs Lymphocytes 4.5 10^3/uL 1.0-4.8 Abs Monocytes 0.9 10^3/uL High 0-0.8 Abs Eosinophils 0.5 10^3/uL 0-0.6 Abs Basophils 0.1 10^3/uL 0-0.2 Abs Nucleated RBC 0.01 10^3/uL Granulocyte % 49.0 % 38-83 Lymphocyte % 38.2 % 25-47 Monocyte % 7.7 % 1-9 Eosinophil % 4.0 % 0-6 Basophil % 1.1 % 0-2 Nucleated Red Blood Cells % 0.1 Laboratory test finding 02/01/2015 Blood Culture SEE RESULT BELOW 52, 53 Comp Metabolic Panel 11/27/2014 Sodium 138 mmol/L 133-145 Potassium 4.0 mmol/L 3.5-5.0 Chloride 99 mmol/L Low 101-111 Co2 Carbon Dioxide 34 mmol/L High 22-32 Anion Gap 5 mmol/L 2-11 Glucose 145 mg/dL High 70-100 Blood Urea Nitrogen 15 mg/dL 6-24 Creatinine 0.70 mg/dL 0.67-1.17 BUN/Creatinine Ratio 21.4 High 8-20 Calcium 9.4 mg/dL 8.6-10.3 Total Protein 6.0 g/dL Low 6.4-8.9 Albumin 3.8 g/dL 3.2-5.2 Globulin 2.2 g/dL 2-4 Albumin/Globulin Ratio 1.7 1-3 Total Bilirubin 1.30 mg/dL High 0.2-1.0 Alkaline Phosphatase 86 U/L 34-104 Alt 13 U/L 7-52 Ast 18 U/L 13-39 Egfr Non- 107.2 >60 Egfr 137.8 >60 54 Lipid Profile (Trig/Chol/HDL) 11/27/2014 Triglycerides 57 mg/dL 55 Cholesterol 137 mg/dL 56 HDL Cholesterol 53.1 mg/dL 57 LDL Cholesterol 73 mg/dL 58 Laboratory test finding 11/27/2014 Hemoglobin A1c (Glyco 6.6 % High Less than 6.0 59 HGB) B-Type Natriuretic Peptide BNP 224 pg/mL 60 Lipid Profile (Trig/Chol/HDL) 01/01/2014 Triglycerides 54 mg/dL 61, 62 Cholesterol 150 mg/dL 61, 63 HDL Cholesterol 63.6 mg/dL 61, 64 LDL Cholesterol 76 mg/dL 61, 65 Comp Metabolic Panel 01/01/2014 Sodium 135 mmol/L 133-145 61 Potassium 4.0 mmol/L 3.7-5.6 61 Chloride 96 mmol/L Low 101-111 61 Co2 Carbon Dioxide 34 mmol/L High 22-32 61 Anion Gap 5 mmol/L 2-11 61 Glucose 142 mg/dL High 70-100 61 Blood Urea Nitrogen 18 mg/dL 6-24 61 Creatinine 0.84 mg/dL 0.67-1.17 61 BUN/Creatinine Ratio 21.4 High 8-20 61 Calcium 9.4 mg/dL 8.6-10.3 61 Total Protein 6.4 g/dL 6.4-8.9 61 Albumin 4.2 g/dL 3.2-5.2 61 Globulin 2.2 g/dL 2-4 61 Albumin/Globulin Ratio 1.9 1-3 61 Total Bilirubin 1.10 mg/dL High 0.2-1.0 61 Alkaline Phosphatase 89 U/L 34-104 61 Alt 23 U/L 7-52 61 Ast 25 U/L 13-39 61 Egfr Non- 87.1 >60 61 Egfr 112.0 >60 61, 66 Laboratory test finding 01/01/2014 Hemoglobin A1c 5.9 5-7 Clotest 03/20/2013 Clotest (SEE NOTE) 67 Laboratory test finding 02/11/2013 Troponin I 0.01 ng/mL 0-0.06 68 CBC Auto Diff 02/11/2013 White Blood Count 13.0 10^3/uL High 4.8-10.8 Red Blood Count 4.75 10^6/uL 4.0-5.4 Hemoglobin 15.3 g/dL 14.0-18.0 Hematocrit 46 % 42-52 Mean Corpuscular Volume 97 fL High 80-94 Mean Corpuscular Hemoglobin 32 pg High 27-31 Mean Corpuscular HGB Conc 33 g/dL 31-36 Red Cell Distribution Width 13 % 10.5-15 Platelet Count 193 10^3/uL 150-450 Mean Platelet Volume 10 um3 7.4-10.4 Abs Neutrophils 6.0 10^3/uL 1.5-7.7 Abs Lymphocytes 5.4 10^3/uL High 1.0-4.8 Abs Monocytes 1.2 10^3/uL High 0-0.8 Abs Eosinophils 0.3 10^3/uL 0-0.6 Abs Basophils 0.1 10^3/uL 0-0.2 Abs Nucleated RBC 0.01 10^3/uL Granulocyte % 46.0 % 38-83 Lymphocyte % 41.5 % 25-47 Monocyte % 9.4 % High 1-9 Eosinophil % 2.5 % 0-6 Basophil % 0.6 % 0-2 Nucleated Red Blood Cells % 0.1 Comp Metabolic Panel 02/11/2013 Sodium 138 mmol/L 133-145 Potassium 3.4 mmol/L Low 3.5-5.0 Chloride 104 mmol/L 101-111 Co2 Carbon Dioxide 25.0 mmol/L 22-32 Anion Gap 9.0 mmol/L 2-11 Glucose 116 mg/dL High 70-100 Blood Urea Nitrogen 11 mg/dL 6-24 Creatinine 0.70 mg/dL 0.50-1.40 BUN/Creatinine Ratio 15.7 8-20 Calcium 9.4 mg/dL 8.1-9.9 Total Protein 5.6 g/dL Low 6.2-8.1 Albumin 3.7 g/dL 3.2-5.2 Globulin 1.9 g/dL Low 2-4 Albumin/Globulin Ratio 1.9 1-3 Total Bilirubin 0.7 mg/dL 0.4-1.5 Alkaline Phosphatase 64 U/L 30-110 Alt 16 U/L 14-54 Ast 17 U/L 12-42 Egfr Non- 107.7 >60 Egfr 138.5 >60 69 Laboratory test finding 12/04/2012 Hemoglobin A1c 6.3 5-7 Lipid Profile (Trig/Chol/HDL) 12/01/2012 Triglycerides 58 mg/dL 40-200 Cholesterol 158 mg/dL Less than 200 HDL Cholesterol 55 mg/dL 40-60 70 Cholesterol/HDL Ratio 2.9 Average 1-4.44 LDL Cholesterol 91.4 mg/dL Less Than 100 71 Comp Metabolic Panel 12/01/2012 Sodium 142 mmol/L 133-145 Potassium 5.2 mmol/L High 3.5-5.0 Chloride 104 mmol/L 101-111 Co2 Carbon Dioxide 32.0 mmol/L 22-32 Anion Gap 6.0 mmol/L 2-11 Glucose 132 mg/dL High 70-100 Blood Urea Nitrogen 14 mg/dL 6-24 Creatinine 0.90 mg/dL 0.50-1.40 BUN/Creatinine Ratio 15.6 8-20 Calcium 9.9 mg/dL 8.1-9.9 Total Protein 5.6 g/dL Low 6.2-8.1 Albumin 3.9 g/dL 3.2-5.2 Globulin 1.7 g/dL Low 2-4 Albumin/Globulin Ratio 2.3 1-3 Total Bilirubin 1.1 mg/dL 0.4-1.5 Alkaline Phosphatase 53 U/L 30-110 Alt 17 U/L 14-54 Ast 18 U/L 12-42 Egfr Non- 80.6 >60 Egfr 103.6 >60 72 Laboratory test 03/10/2012 Throat Culture <SEE 73 finding Full NOTE> Arterial Blood Gas 12/27/2011 PH 7.43 7.35-7.45 Pco2 40 mmHg 35-45 Po2 70 mmHg Low 80-100 O2 Saturation 94.0 % Low 95-98 Base Excess 2.0 -2.0-2.0 74 Bicarbonate 26.2 mmol/L 19-31 Fio2 ROOM AIR Laboratory test finding 12/03/2011 Hemoglobin A1c 5.4 5-7 DR Herring's Lab Panel 11/29/2011 TSH 0.73 MIU/ML 0.34-5.60 Comp Metabolic Panel 11/29/2011 Sodium 138 mmol/L 135-145 Potassium 3.9 mmol/L 3.5-5.0 Chloride 103 mmol/L 101-111 Co2 (Carbon Dioxide) 33.0 mmol/L High 22-32 Anion Gap 2.0 mmol/L 2-11 75 Glucose 141 mg/dL High 70-100 BUN 17 mg/dL 6-24 Creatinine 0.9 mg/dL 0.50-1.40 One Over Creatinine 1.11 BUN/Creatinine Ratio 18.9 8-20 Calcium 9.2 mg/dL 8.1-9.9 Total Protein 6.1 GM/DL Low 6.2-8.1 Albumin 3.9 GM/DL 3.2-5.2 Globulin 2.2 GM/DL 2-4 Albumin/Globulin Ratio 1.8 1-3 Bilirubin Total 1.2 mg/dL 0.4-1.5 76 Alkaline Phosphatase 50 U/L 39-117 Alt (SGPT) 17 U/L 17-63 Ast (Sgot) 18 U/L 12-42 eGFR Non- 80.8 > 60 eGFR 103.9 > 60 77 Lipid Profile (Trig/Chol/HDL) 11/29/2011 Triglyceride 63 mg/dL 40-200 Cholesterol 169 mg/dL Less Than 200 78 High Density Lipoprotein 57 mg/dL 40-60 79 Cholesterol/HDL Ratio 2.96 AVERAGE 1-4.97 Low Density Lipoprotein 99 mg/dL Less Than 100 80 CBC Auto Diff 11/29/2011 White Blood Count 7.2 CUMM 4.8-10.8 Red Cell Count 4.67 CUMM 4.6-6.2 Hemoglobin 16.0 g/dL 14.0-18.0 Hematocrit 46 % 42-52 Mean Corpuscular Volume 99 um3 High 80-94 Mean Corpuscular Hemoglob 34 pg High 27-31 Mean Corpuscular HGB Cone 35 g/dL 32-36 Redcell Distribution WDTH 13 % 10.5-15 Platelet Count 162 CUMM 150-450 Mean Platelet Volume 10.2 um3 7.4-10.4 Gran % 49.9 % 38-83 Lymph % 36.1 % 25-47 Mononuclear % 11.3 % High 1-9 Eosinophil % 2.3 % 0-6 Basophil % 0.4 % 0-2 Abs Lymphs 2.6 1.0-4.8 Abs Mononuclear 0.8 0-0.8 Absolute Neutrophil Count 3.6 1.5-7.7 Abs Eosinophils 0.2 0-0.6 Abs Basophils 0 0-0.2 Laboratory test finding 05/26/2011 Hemoglobin A1c 6.1 5-7 Laboratory test finding 11/23/2010 Hemoglobin A1c 6.1 5-7 Comp Metabolic Panel 11/17/2010 Sodium 142 mmol/L 135-145 Potassium 5.3 mmol/L High 3.5-5.0 Chloride 102 mmol/L 101-111 Co2 (Carbon Dioxide) 33.0 mmol/L High 22-32 Anion Gap 7.0 mmol/L 2-11 81 Glucose 117 mg/dL High 70-100 BUN 19 mg/dL 6-24 Creatinine 0.80 mg/dL 0.50-1.40 One Over Creatinine 1.20 BUN/Creatinine Ratio 23.8 High 8-20 Calcium 9.8 mg/dL 8.1-9.9 Total Protein 5.8 GM/DL Low 6.2-8.1 Albumin 4.1 GM/DL 3.2-5.2 Globulin 1.7 GM/DL Low 2-4 Albumin/Globulin Ratio 2.4 1-3 Bilirubin Total 1.1 mg/dL 0.4-1.5 82 Alkaline Phosphatase 51 U/L 39-117 Alt (SGPT) 17 U/L 17-63 Ast (Sgot) 21 U/L 12-42 eGFR Non- 92.8 > 60 eGFR 119.3 > 60 83 Lipid Profile (Trig/Chol/HDL) 11/17/2010 Triglyceride 79 mg/dL 40-200 Cholesterol 175 mg/dL Less Than 200 84 High Density Lipoprotein 61 mg/dL High 40-60 85 Cholesterol/HDL Ratio 2.87 AVERAGE 1-4.97 Low Density Lipoprotein 98 mg/dL Less Than 100 86 CBC Auto Diff 11/17/2010 White Blood Count 7.6 CUMM 4.8-10.8 Red Cell Count 4.70 CUMM 4.6-6.2 Hemoglobin 15.8 g/dL 14.0-18.0 Hematocrit 46 % 42-52 Mean Corpuscular Volume 99 um3 High 80-94 Mean Corpuscular Hemoglob 34 pg High 27-31 Mean Corpuscular HGB Cone 34 g/dL 32-36 Redcell Distribution WDTH 13 % 10.5-15 Platelet Count 149 CUMM Low 150-450 Mean Platelet Volume 10.1 um3 7.4-10.4 Gran % 46.6 % 38-83 Lymph % 40.1 % 25-47 Mononuclear % 10.7 % High 1-9 Eosinophil % 2.2 % 0-6 Basophil % 0.4 % 0-2 Abs Lymphs 3.0 1.0-4.8 Abs Mononuclear 0.8 0-0.8 Absolute Neutrophil Count 3.5 1.5-7.7 Abs Eosinophils 0.2 0-0.6 Abs Basophils 0 0-0.2 DR Herring's Lab Panel 11/17/2010 TSH 0.77 MIU/ML 0.34-5.60 DR Herring's Lab Panel 05/25/2010 TSH 0.56 MIU/ML 0.34-5.60 Comp Metabolic Panel 05/25/2010 Sodium 140 mmol/L 135-145 Potassium 4.9 mmol/L 3.5-5.0 Chloride 104 mmol/L 101-111 Co2 (Carbon Dioxide) 31.0 mmol/L 22-32 Anion Gap 5.0 mmol/L 2-11 87 Glucose 147 mg/dL High 70-100 88 BUN 24 mg/dL 6-24 Creatinine 0.80 mg/dL 0.50-1.40 One Over Creatinine 1.20 BUN/Creatinine Ratio 30.0 High 8-20 Calcium 9.4 mg/dL 8.1-9.9 Total Protein 5.6 GM/DL Low 6.2-8.1 Albumin 4.2 GM/DL 3.2-5.2 Globulin 1.4 GM/DL Low 2-4 Albumin/Globulin Ratio 3.0 1-3 Bilirubin Total 0.9 mg/dL 0.4-1.5 89 Alkaline Phosphatase 59 U/L 39-117 Alt (SGPT) 16 U/L Low 17-63 Ast (Sgot) 18 U/L 12-42 eGFR Non- 98.9 > 60 eGFR 119.6 > 60 90 Lipid Profile (Trig/Chol/HDL) 05/25/2010 Triglyceride 74 mg/dL 40-200 Cholesterol 180 mg/dL Less Than 200 91 High Density Lipoprotein 54 mg/dL 40-60 92 Cholesterol/HDL Ratio 3.33 AVERAGE 1-4.97 Low Density Lipoprotein 111 mg/dL High Less Than 100 93 CBC With Electronic Diff 05/25/2010 White Blood Count 9.3 CUMM 4.8-10.8 Red Cell Count 4.80 CUMM 4.6-6.2 Hemoglobin 16.2 g/dL 14.0-18.0 Hematocrit 47 % 42-52 Mean Corpuscular Volume 98 um3 High 80-94 Mean Corpuscular Hemoglob 34 pg High 27-31 Mean Corpuscular HGB Cone 34 g/dL 32-36 Redcell Distribution WDTH 13 % 10.5-15 Platelet Count 178 CUMM 150-450 Mean Platelet Volume 8.9 um3 7.4-10.4 94 Manual Differential 05/25/2010 Polysegmented Neutrophil 68 % 38-83 Lymphocyte 17 % Low 25-47 Monocyte 11 % 0-13 Eosinophil 3 % 0-6 Atypical Lymph 1 % 0-6 Absolute Neutrophil Count 6.3 Anisocytosis SLIGHT Macrocytosis SLIGHT Laboratory test finding 05/25/2010 Hemoglobin A1c 6.4 % High Less Than 6.0 95 Lipid Profile 11/18/2009 Triglyceride 46 mg/dL 40-200 (Trig/Chol/HDL) Cholesterol 168 mg/dL Less Than 200 96 High Density Lipoprotein 57 mg/dL 40-60 97 Cholesterol/HDL Ratio 2.95 AVERAGE 1-4.97 Low Density Lipoprotein 102 mg/dL High Less Than 100 98 Laboratory test finding 11/18/2009 Ast (Sgot) 24 U/L 12-42 Alt (SGPT) 20 U/L 17-63 DR Herring's Lab Panel 06/04/2009 TSH 0.69 MIU/ML 0.34-5.60 99 Comp Metabolic Panel 06/04/2009 Sodium 139 mmol/L 135-145 99 Potassium 4.8 mmol/L 3.5-5.0 99 Chloride 102 mmol/L 101-111 99 Co2 (Carbon Dioxide) 32.0 mmol/L 22-32 99 Anion Gap 5.0 mmol/L 2-11 99, 100 Glucose 149 mg/dL High 70-100 99, 101 BUN 18 mg/dL 6-24 99 Creatinine 0.90 mg/dL 0.50-1.40 99 One Over Creatinine 1.10 99 BUN/Creatinine Ratio 20.0 8-20 99 Calcium 9.6 mg/dL 8.1-9.9 99, 102 Total Protein 5.7 GM/DL Low 6.2-8.1 99 Albumin 4.1 GM/DL 3.2-5.2 99 Globulin 1.6 GM/DL Low 2-4 99 Albumin/Globulin Ratio 2.6 1-3 99 Bilirubin Total 1.5 mg/dL 0.4-1.5 99, 103 Alkaline Phosphatase 56 U/L 39-117 99 Alt (SGPT) 19 U/L 17-63 99 Ast (Sgot) 20 U/L 12-42 99 eGFR Non- 86.5 > 60 99 eGFR 104.7 > 60 99, 104 Laboratory test finding 06/04/2009 PSA Screening 2.53 NG/ML 0-4 99, 105 CBC With Electronic Diff 06/04/2009 White Blood Count 9.1 CUMM 4.8-10.8 99 Red Cell Count 5.07 CUMM 4.6-6.2 99 Hemoglobin 16.7 g/dL 14.0-18.0 99 Hematocrit 49 % 42-52 99 Mean Corpuscular Volume 97 um3 High 80-94 99 Mean Corpuscular Hemoglob 33 pg High 27-31 99 Mean Corpuscular HGB Cone 34 g/dL 32-36 99 Redcell Distribution WDTH 13 % 10.5-15 99 Platelet Count 180 CUMM 150-450 99 Mean Platelet Volume 9.7 um3 7.4-10.4 99 Gran % 56.6 % 38-83 99 Lymph % 32.2 % 25-47 99 Mononuclear % 9.2 % High 1-9 99 Eosinophil % 1.6 % 0-6 99 Basophil % 0.4 % 0-2 99 Abs Lymphs 2.9 1.0-4.8 99 Abs Mononuclear 0.8 0-0.8 99 Absolute Neutrophil Count 5.1 1.5-7.7 99 Abs Eosinophils 0.1 0-0.6 99 Abs Basophils 0 0-0.2 99 Lipid Profile (Trig/Chol/HDL) 06/04/2009 Triglyceride 62 mg/dL 40-200 99 Cholesterol 150 mg/dL Less Than 200 99, 106 High Density Lipoprotein 48 mg/dL 40-60 99, 107 Cholesterol/HDL Ratio 3.13 AVERAGE 1-4.97 99 Low Density Lipoprotein 90 mg/dL Less Than 100 99, 108 Laboratory test finding 02/20/2009 BNP Evaluatr 130.0 pg/mL High 0-100 Comp Metabolic Panel 02/20/2009 Sodium 141 mmol/L 135-145 Potassium 5.8 mmol/L High 3.5-5.0 Chloride 105 mmol/L 101-111 Co2 (Carbon Dioxide) 32.0 mmol/L 22-32 Anion Gap 4.0 mmol/L 2-11 109 Glucose 138 mg/dL High 70-100 110 BUN 13 mg/dL 6-24 Creatinine 0.80 mg/dL 0.50-1.40 One Over Creatinine 1.20 BUN/Creatinine Ratio 16.3 8-20 Calcium 10.0 mg/dL High 8.1-9.9 111 Total Protein 5.8 GM/DL Low 6.2-8.1 Albumin 4.0 GM/DL 3.2-5.2 Globulin 1.8 GM/DL Low 2-4 Albumin/Globulin Ratio 2.2 1-3 Bilirubin Total 1.4 mg/dL 0.4-1.5 112 Alkaline Phosphatase 59 U/L 39-117 Alt (SGPT) 22 U/L 17-63 Ast (Sgot) 24 U/L 12-42 eGFR Non- 99.1 > 60 eGFR 119.9 > 60 113 Laboratory test finding 02/20/2009 TSH 0.58 MIU/ML 0.34-5.60 Protime 05/02/2008 Protime 12.5 10.9-13.3 Inr 1.07 114 Basic Metabolic Panel 05/02/2008 Sodium 141 mmol/L 135-145 Potassium 5.4 mmol/L High 3.5-5.0 Chloride 107 mmol/L 101-111 Co2 (Carbon Dioxide) 30.8 mmol/L 22-32 Anion Gap 3.2 mmol/L 2-11 115 BUN 16 mg/dL 6-24 Creatinine 0.89 mg/dL 0.5-1.4 One Over Creatinine 1.10 BUN/Creatinine Ratio 18.0 8-20 Calcium 9.5 mg/dL 8.1-9.9 116 Glucose 104 mg/dL High 70-100 117 CBC With Electronic Diff 05/02/2008 White Blood Count 7.2 CUMM 4.8-10.8 Red Cell Count 4.82 CUMM 4.6-6.2 Hemoglobin 16.0 g/dL 14.0-18.0 Hematocrit 47 % 42-52 Mean Corpuscular Volume 97 um3 High 80-94 Mean Corpuscular Hemoglob 33 pg High 27-31 Mean Corpuscular HGB Cone 34 g/dL 32-36 Redcell Distribution WDTH 12 % 10.5-15 Platelet Count 217 CUMM 150-450 Mean Platelet Volume 8.8 um3 7.4-10.4 Gran % 51.2 % 38-83 Lymph % 34.7 % 20-45 Mononuclear % 11.3 % High 1-9 Eosinophil % 2.5 % 0-6 Basophil % 0.3 % 0-2 Abs Lymphs 2.5 1.0-4.8 Abs Mononuclear 0.8 0-0.8 Absolute Neutrophil Count 3.7 1.5-7.7 Abs Eosinophils 0.2 0-0.6 Abs Basophils 0 0-0.2 Laboratory test finding 05/02/2008 PTT (Aptt) 23.0 20.1-28.2 118 Lipid Profile (Trig/Chol/HDL) 11/20/2007 Triglyceride 93 mg/dL 40-200 99 Cholesterol 163 mg/dL Less Than 200 99, 119 High Density Lipoprotein 52 mg/dL 40-60 99, 120 Cholesterol/HDL Ratio 3.13 AVERAGE 1-4.97 99 Low Density Lipoprotein 92 mg/dL Less Than 100 99, 121 Liver Function Panel 11/20/2007 Total Protein 6.4 GM/DL 6.2-8.1 99 Albumin 4.2 GM/DL 3.2-5.2 99 Globulin 2.2 GM/DL 2-4 99 Albumin/Globulin Ratio 1.9 1-3 99 Bilirubin Total 1.4 mg/dL 0.4-1.5 99 Bilirubin Direct 0.3 mg/dL 0.1-0.5 99 Indirect Bilirubin 1.1 mg/dL High 0.1-0.75 99 Alkaline Phosphatase 45 U/L 39-117 99 Alt (SGPT) 18 U/L 17-63 99 Ast (Sgot) 23 U/L 12-42 99 Laboratory test finding 09/12/2007 Alt (SGPT) 22 U/L 17-63 Ast (Sgot) 23 U/L 12-42 Lipid Profile 09/12/2007 Cholesterol/HDL Ratio 3.26 AVERAGE 1-4.97 (Trig/Chol/HDL) Cholesterol 163 mg/dL Less Than 200 122 Triglyceride 117 mg/dL 40-200 High Density Lipoprotein 50 mg/dL 40-60 Low Density Lipoprotein 90 mg/dL Less Than 100 123 CBC W/ Electronic Diff 05/24/2007 White Blood Count 6.8 CUMM 4.8-10.8 124 Abs Basophils 0 0-0.2 124 Abs Eosinophils 0.2 0-0.6 124 Absolute Neutrophil Count 3.9 1.5-7.7 124 Abs Lymphs 2.0 1.0-4.8 124 Abs Mononuclear 0.7 0-0.8 124 Basophil % 0.7 % 0-2 124 Hematocrit 48 % 42-52 124 Hemoglobin 16.5 g/dL 14.0-18.0 124 Eosinophil % 2.7 % 0-6 124 Gran % 56.9 % 38-83 124 Lymph % 29.7 % 20-45 124 Mean Corpuscular HGB Cone 35 g/dL 32-36 124 Mean Corpuscular Hemoglob 33 pg High 27-31 124 Mean Corpuscular Volume 95 um3 High 80-94 124 Mean Platelet Volume 9.4 um3 7.4-10.4 124 Mononuclear % 10.0 % High 1-9 124 Platelet Count 209 CUMM 150-450 124 Red Cell Count 4.99 CUMM 4.6-6.2 124 Redcell Distribution WDTH 13 % 10.5-15 124 Comp Metabolic Panel 05/24/2007 One Over Creatinine 1.11 124 Anion Gap 6.0 mmol/L 2-11 124, 125 Albumin/Globulin Ratio 2.2 1-3 124 Albumin 4.3 GM/DL 3.2-5.2 124 Alkaline Phosphatase 43 U/L 39-117 124 Alt (SGPT) 21 U/L 17-63 124 Ast (Sgot) 25 U/L 12-42 124 BUN 11 mg/dL 6-24 124 Calcium 9.6 mg/dL 8.7-10.2 124 Chloride 104 mmol/L 101-111 124 Co2 (Carbon Dioxide) 30.0 mmol/L 22-32 124 Globulin 2.0 GM/DL 2-4 124 Glucose 110 mg/dL High 70-105 124 Potassium 5.0 mmol/L 3.5-5.0 124 Sodium 140 mmol/L 135-145 124 Bilirubin Total 1.4 mg/dL 0.4-1.5 124 Total Protein 6.3 GM/DL 6.2-8.1 124 BUN/Creatinine Ratio 12.2 8-20 124 Creatinine 0.9 mg/dL 0.5-1.4 124 Lipid Profile 05/24/2007 Cholesterol/HDL Ratio 3.67 AVERAGE 1-4.97 124 (Trig/Chol/HDL) Cholesterol 213 mg/dL High Less Than 200 124, 126 Triglyceride 92 mg/dL 40-200 124 High Density Lipoprotein 58 mg/dL 40-60 124 Low Density Lipoprotein 137 mg/dL High Less Than 100 124, 127 Laboratory test finding 05/24/2007 PSA Screening 1.91 NG/ML 0-4 124, 128 TSH 0.54 MIU/ML 0.34-5.60 124 1 [id number] Normal Range 180 to 914 Indeterminate Range 145 to 180 Deficient Range <145 3 FASTING 4 FASTING 5 Because ethnic data is not always readily available, this report includes an eGFR for both -Americans and non- Americans. The National Kidney Disease Education Program (NKDEP) does not endorse the use of the MDRD equation for patients that are not between the ages of 18 and 70, are , have extremes of body size, muscle mass, or nutritional status, or are non- or non-. According to the National Kidney Foundation, irrespective of diagnosis, the stage of the disease is based on the level of kidney function: Stage Description GFR(mL/min/1.73 m(2)) 1 Kidney damage with normal or decreased GFR 90 2 Kidney damage with mild decrease in GFR 60-89 3 Moderate decrease in GFR 30-59 4 Severe decrease in GFR 15-29 5 Kidney failure <15 (or dialysis) 6 Desirable: <150 Borderline High: 150-199 High: 200-499 Very High: >500 7 Desirable: <200 Borderline High: 200-239 High: >239 8 Low: <40 Desirable: 40-60 High: >60 9 Desirable: <100 Near Optimal: 100-129 Borderline High: 130-159 High: 160-189 Very High: >189 10 Therapeutic target for the treatment of diabetes mellitus patients is <7% HBA1C, and in selective patients <6.0%. Please refer to [place] [employer] diabetic care guidelines for further information. 11 [id number] 12 SEE RESULT BELOW Name: AIDAN PEARL : [address]: Breana Fuller Acct: [id number] Unit: [id number] AGE: 86 Location: [facility] Re12/27/16 SEX: M Status: DEP ER SPEC: [id number] MAYUR: 12/27/[address]: Breana Currie DO REQ: [id number] RECD: 12/27/16 STATUS: NIKKO BACK DR: Pawel Herring III, MD _ SOURCE: LEG,LEFT SPDESC: ORDERED: Culture Stain COMMENTS: [id number] Procedure Result Reported Site Wound/Misc Gram Stain Final 12/27/16- 1149 ML 1+ Neutrophils No Organisms Seen Wound/Misc Culture Final 12/29/16- 0850 ML No Growth Day 2 * ML - MAIN LAB ([facility]) . END OF REPORT * ML=Testing performed at Main Lab DEPARTMENT OF PATHOLOGY, [address], [place], [place] [address] Harlan Montelongo M.D. Director [facility] # [id number] 13 Because ethnic data is not always readily available, this report includes an eGFR for both -Americans and non- Americans. The National Kidney Disease Education Program (NKDEP) does not endorse the use of the MDRD equation for patients that are not between the ages of 18 and 70, are , have extremes of body size, muscle mass, or nutritional status, or are non- or non-. According to the National Kidney Foundation, irrespective of diagnosis, the stage of the disease is based on the level of kidney function: Stage Description GFR(mL/min/1.73 m(2)) 1 Kidney damage with normal or decreased GFR 90 2 Kidney damage with mild decrease in GFR 60-89 3 Moderate decrease in GFR 30-59 4 Severe decrease in GFR 15-29 5 Kidney failure <15 (or dialysis) 14 Because ethnic data is not always readily available, this report includes an eGFR for both -Americans and non- Americans. The National Kidney Disease Education Program (NKDEP) does not endorse the use of the MDRD equation for patients that are not between the ages of 18 and 70, are , have extremes of body size, muscle mass, or nutritional status, or are non- or non-. According to the National Kidney Foundation, irrespective of diagnosis, the stage of the disease is based on the level of kidney function: Stage Description GFR(mL/min/1.73 m(2)) 1 Kidney damage with normal or decreased GFR 90 2 Kidney damage with mild decrease in GFR 60-89 3 Moderate decrease in GFR 30-59 4 Severe decrease in GFR 15-29 5 Kidney failure <15 (or dialysis) 15 Therapeutic target for the treatment of diabetes Mellitus patients is <7% HBA1C, and in selective patients <6.0%.Please refer to [place] [employer] Diabetic care guidelines for further information. 16 Because ethnic data is not always readily available, this report includes an eGFR for both -Americans and non- Americans. The National Kidney Disease Education Program (NKDEP) does not endorse the use of the MDRD equation for patients that are not between the ages of 18 and 70, are , have extremes of body size, muscle mass, or nutritional status, or are non- or non-. According to the National Kidney Foundation, irrespective of diagnosis, the stage of the disease is based on the level of kidney function: Stage Description GFR(mL/min/1.73 m(2)) 1 Kidney damage with normal or decreased GFR 90 2 Kidney damage with mild decrease in GFR 60-89 3 Moderate decrease in GFR 30-59 4 Severe decrease in GFR 15-29 5 Kidney failure <15 (or dialysis) 17 soon 18 Therapeutic target for the treatment of diabetes Mellitus patients is <7% HBA1C, and in selective patients <6.0%.Please refer to [place] [employer] Diabetic care guidelines for further information. 19 Because ethnic data is not always readily available, this report includes an eGFR for both -Americans and non- Americans. The National Kidney Disease Education Program (NKDEP) does not endorse the use of the MDRD equation for patients that are not between the ages of 18 and 70, are , have extremes of body size, muscle mass, or nutritional status, or are non- or non-. According to the National Kidney Foundation, irrespective of diagnosis, the stage of the disease is based on the level of kidney function: Stage Description GFR(mL/min/1.73 m(2)) 1 Kidney damage with normal or decreased GFR 90 2 Kidney damage with mild decrease in GFR 60-89 3 Moderate decrease in GFR 30-59 4 Severe decrease in GFR 15-29 5 Kidney failure <15 (or dialysis) 20 Therapeutic target for the treatment of diabetes Mellitus patients is <7% HBA1C, and in selective patients <6.0%.Please refer to [place] [employer] Diabetic care guidelines for further information. 21 Because ethnic data is not always readily available, this report includes an eGFR for both -Americans and non- Americans. The National Kidney Disease Education Program (NKDEP) does not endorse the use of the MDRD equation for patients that are not between the ages of 18 and 70, are , have extremes of body size, muscle mass, or nutritional status, or are non- or non-. According to the National Kidney Foundation, irrespective of diagnosis, the stage of the disease is based on the level of kidney function: Stage Description GFR(mL/min/1.73 m(2)) 1 Kidney damage with normal or decreased GFR 90 2 Kidney damage with mild decrease in GFR 60-89 3 Moderate decrease in GFR 30-59 4 Severe decrease in GFR 15-29 5 Kidney failure <15 (or dialysis) 22 Desirable <150 Borderline high 150-199 High 200-499 Very High >500 23 Desirable <200 Borderline high 200-239 High >239 24 Low <40 Desirable: 40-60 High: >60 25 Desirable: <100 mg/dL Near Optimal: 100-129 mg/dL Borderline High: 130-159 mg/dL High: 160-189 mg/dL Very High: >189 mg/dL 26 Because ethnic data is not always readily available, this report includes an eGFR for both -Americans and non- Americans. The National Kidney Disease Education Program (NKDEP) does not endorse the use of the MDRD equation for patients that are not between the ages of 18 and 70, are , have extremes of body size, muscle mass, or nutritional status, or are non- or non-. According to the National Kidney Foundation, irrespective of diagnosis, the stage of the disease is based on the level of kidney function: Stage Description GFR(mL/min/1.73 m(2)) 1 Kidney damage with normal or decreased GFR 90 2 Kidney damage with mild decrease in GFR 60-89 3 Moderate decrease in GFR 30-59 4 Severe decrease in GFR 15-29 5 Kidney failure <15 (or dialysis) 27 >100 to <200 pg/mL: likely compensated congestive heart failure (CHF) 200 to 400 pg/mL: likely moderate CHF >400 pg/mL: likely moderate to severe CHF 28 Because ethnic data is not always readily available, this report includes an eGFR for both -Americans and non- Americans. The National Kidney Disease Education Program (NKDEP) does not endorse the use of the MDRD equation for patients that are not between the ages of 18 and 70, are , have extremes of body size, muscle mass, or nutritional status, or are non- or non-. According to the National Kidney Foundation, irrespective of diagnosis, the stage of the disease is based on the level of kidney function: Stage Description GFR(mL/min/1.73 m(2)) 1 Kidney damage with normal or decreased GFR 90 2 Kidney damage with mild decrease in GFR 60-89 3 Moderate decrease in GFR 30-59 4 Severe decrease in GFR 15-29 5 Kidney failure <15 (or dialysis) 29 Acute inflammation: >10.00 30 >100 to <200 pg/mL: likely compensated congestive heart failure (CHF) 200 to 400 pg/mL: likely moderate CHF >400 pg/mL: likely moderate to severe CHF 31 Because ethnic data is not always readily available, this report includes an eGFR for both -Americans and non- Americans. The National Kidney Disease Education Program (NKDEP) does not endorse the use of the MDRD equation for patients that are not between the ages of 18 and 70, are , have extremes of body size, muscle mass, or nutritional status, or are non- or non-. According to the National Kidney Foundation, irrespective of diagnosis, the stage of the disease is based on the level of kidney function: Stage Description GFR(mL/min/1.73 m(2)) 1 Kidney damage with normal or decreased GFR 90 2 Kidney damage with mild decrease in GFR 60-89 3 Moderate decrease in GFR 30-59 4 Severe decrease in GFR 15-29 5 Kidney failure <15 (or dialysis) 32 Reference ranges based on room air. 33 [facility] Severe Sepsis and Septic Shock Management Bundle Measure requires all lactic acids initially measuring >2.0mmol/L be repeated. 34 Because ethnic data is not always readily available, this report includes an eGFR for both -Americans and non- Americans. The National Kidney Disease Education Program (NKDEP) does not endorse the use of the MDRD equation for patients that are not between the ages of 18 and 70, are , have extremes of body size, muscle mass, or nutritional status, or are non- or non-. According to the National Kidney Foundation, irrespective of diagnosis, the stage of the disease is based on the level of kidney function: Stage Description GFR(mL/min/1.73 m(2)) 1 Kidney damage with normal or decreased GFR 90 2 Kidney damage with mild decrease in GFR 60-89 3 Moderate decrease in GFR 30-59 4 Severe decrease in GFR 15-29 5 Kidney failure <15 (or dialysis) 35 Reference Range and Interpretation: TnI (ng/mL) Interpretation Less Than 0.03 ng/mL Not supportive of diagnosis of RI 0.03 - 0.50 ng/mL Indeterminate: suggest serial studies if clinically indicated. Greater than 0.5 ng/mL Consistent with diagnosis of RI 36 >100 to <200 pg/mL: likely compensated congestive heart failure (CHF) 200 to 400 pg/mL: likely moderate CHF >400 pg/mL: likely moderate to severe CHF 37 *Ascorbic acid is present which may interfere with detection of blood. 38 SEE RESULT BELOW Name: AIDAN PEARL : [address]: Nereida Diego DO Acct: [id number] Unit: [id number] AGE: 84 Location: [address] Re07/21/15 SEX: M Status: ADM IN SPEC: [id number] MAYUR: 07/21/[address]: Clem Cortes MD REQ: [id number] RECD: 07/21/15 STATUS: NIKKO GUADALUPE DR: [facility] Pawel Herring III, MD _ SOURCE: BLOOD,VENO SPDESC: ORDERED: Blood Cult Procedure Result Reported Site Pediatric Blood Culture Final 07/26/152042 ML No Growth Day 5 * ML - MAIN LAB ([facility]) . END OF REPORT * ML=Testing performed at Main Lab DEPARTMENT OF PATHOLOGY, [address] [place] [address] Harlan Montelongo M.D. Director [facility] # [id number] 39 Reference ranges based on room air. 40 [facility] Severe Sepsis and Septic Shock Management Bundle Measure requires all lactic acids initially measuring >2.0mmol/L be repeated. 41 Because ethnic data is not always readily available, this report includes an eGFR for both -Americans and non- Americans. The National Kidney Disease Education Program (NKDEP) does not endorse the use of the MDRD equation for patients that are not between the ages of 18 and 70, are , have extremes of body size, muscle mass, or nutritional status, or are non- or non-. According to the National Kidney Foundation, irrespective of diagnosis, the stage of the disease is based on the level of kidney function: Stage Description GFR(mL/min/1.73 m(2)) 1 Kidney damage with normal or decreased GFR 90 2 Kidney damage with mild decrease in GFR 60-89 3 Moderate decrease in GFR 30-59 4 Severe decrease in GFR 15-29 5 Kidney failure <15 (or dialysis) 42 Reference Range and Interpretation: TnI (ng/mL) Interpretation Less Than 0.03 ng/mL Not supportive of diagnosis of RI 0.03 - 0.50 ng/mL Indeterminate: suggest serial studies if clinically indicated. Greater than 0.5 ng/mL Consistent with diagnosis of RI 43 >100 to <200 pg/mL: likely compensated congestive heart failure (CHF) 200 to 400 pg/mL: likely moderate CHF >400 pg/mL: likely moderate to severe CHF 44 SEE RESULT BELOW Name: AIDAN PEARL : [address]: Rico Huddleston MD Acct: [id number] Unit: [id number] AGE: 84 Location: ED Re07/17/15 SEX: M Status: DEP ER SPEC: [id number] MAYUR: 07/17/[address] [facility] [address]: Rico Huddleston MD REQ: [id number] RECD: 07/17/15 STATUS: NIKKO BACK DR: Pawel Herring III, MD _ SOURCE: [facility]LOOD,[facility]ENO [facility] ORDERED: Blood Cult Procedure Result Reported Site Aerobic Culture Bottle Final 07/22/15- 1623 ML No Growth Day 5 Anaerobic Culture Bottle Final 07/22/15- 1623 ML No Growth Day 5 * ML - MAIN LAB ([facility]) . END OF REPORT * ML=Testing performed at Main Lab DEPARTMENT OF PATHOLOGY, [address] [place] [address] Harlan Montelongo M.D. Director [facility] # [id number] 45 Serum levels of PSA measured using the Caroline [employer]i DXI Hybritech immunoassay should not be interpreted as absolute evidence of the presence or absence of disease. The PSA value should be used in conjunction with other pertinent clinical diagnostic procedures. The values obtained with different assay methods or kits cannot be used interchangeably. 46 SEE RESULT BELOW Name: AIDAN PEARL : [address]: James Quinteros NP Acct: [id number] Unit: [id number] AGE: 84 Location: [facility] Re07/15/15 SEX: M Status: REG REF SPEC: [id number] MAYUR: 07/15/15-[address] [facility] [address]: James Quinteros NP REQ: [id number] RECD: 07/15/15 STATUS: COMP _ SOURCE: URINE SPDESC: ORDERED: Urine Culture Procedure Result Reported Site Urine Culture Final 07/18/15- 0840 ML Organism 1 STAPHYLOCOCCUS AUREUS [place] Count >100,000 (Many) CFU/ML 1. STAPHYLOCOCCUS AUREUS [facility]. RX --------- ------ Penicillin >=0.5 R Gentamicin <=0.5 S Linezolid 2 S Nitrofurantoin <=16 S Oxacillin <=0.25 S * Quinupristin/Dalfopristin <=0.25 S Rifampin <=0.5 S Tetracycline <=1 S Doxycycline - Deduced S * Minocycline - Deduced S Trimethoprim/Sulfamethoxazole <=10 S Vancomycin <=0.5 S Imipenem-Deduced S * Ampicillin/Sulbactam-Deduced S Cefazolin-Deduced S * These antibiotics are not available in the [facility] Formulary Contact the Microbiology Department for any additional antibiotic reporting. * ML - MAIN LAB ([facility]) . END OF REPORT * ML=Testing performed at Main Lab DEPARTMENT OF PATHOLOGY, [address] [place] [address] Harlan Montelongo M.D. Director [facility] # [id number] 47 SEE RESULT BELOW Name: AIDAN PEARL : [address]: Jack Amin MD Acct: [id number] Unit: [id number] AGE: 84 Location: [facility] Re06/23/15 SEX: M Status: DEP ER SPEC: [id number] MAYUR: 06/23/15-[address] [facility] [address]: Jack Amin MD REQ: [id number] RECD: 06/23/15 STATUS: NIKKO BACK DR: Pawel Herring III, MD _ SOURCE: URINE SPDESC: ORDERED: Urine Culture Procedure Result Reported Site Urine Culture Final 06/25/15- 0759 ML Organism 1 STAPHYLOCOCCUS AUREUS [place] Count >100,000 (Many) CFU/ML 1. STAPHYLOCOCCUS AUREUS [facility].I.[facility]. RX --------- ------ Penicillin >=0.5 R Gentamicin <=0.5 S Linezolid 2 S Nitrofurantoin <=16 S Oxacillin <=0.25 S * Quinupristin/Dalfopristin <=0.25 S Rifampin <=0.5 S Tetracycline <=1 S Doxycycline - Deduced S * Minocycline - Deduced S Trimethoprim/Sulfamethoxazole <=10 S Vancomycin 1 S Imipenem-Deduced S * Ampicillin/Sulbactam-Deduced S Cefazolin-Deduced S * These antibiotics are not available in the [facility] Formulary Contact the Microbiology Department for any additional antibiotic reporting. * ML - MAIN LAB ([facility]) . END OF REPORT * ML=Testing performed at Main Lab DEPARTMENT OF PATHOLOGY, [address] [place] [address] Harlan Montelongo M.D. Director [facility] # [id number] 48 >100 to <200 pg/mL: likely compensated congestive heart failure (CHF) 200 to 400 pg/mL: likely moderate CHF >400 pg/mL: likely moderate to severe CHF 49 SEE RESULT BELOW Name: AIDAN PEARL : [address]: Hammad Butler DO Acct: [id number] Unit: [id number] AGE: 84 Location: ED Re02/01/15 SEX: M Status: DEP ER SPEC: [id number] MAYUR: 02/01/15-[address] [facility] [address]: Hammad Butler DO REQ: [id number] RECD: 02/01/15 STATUS: RES OTHR DR: Pawel Herring III, MD _ SOURCE: BLOOD,VENO SPDESC: ORDERED: Blood Cult COMMENTS: Patient is On Antibiotics? NO Procedure Result Verified Site Aerobic Culture Bottle Preliminary 02/02/15- 1538 ML Aerobic Bottle Gram Stain Gram Variable Coccobacilli Anaerobic Culture Bottle PENDING * ML - MAIN LAB ([facility]) . END OF REPORT * ML=Testing performed at Main Lab DEPARTMENT OF PATHOLOGY, [address], [place], [place] [address] Harlan Montelongo M.D. Director [facility] # [id number] 50 Reference Range and Interpretation: TnI (ng/mL) Interpretation Less Than 0.03 ng/mL Not supportive of diagnosis of RI 0.03 - 0.50 ng/mL Indeterminate: suggest serial studies if clinically indicated. Greater than 0.5 ng/mL Consistent with diagnosis of RI 51 Because ethnic data is not always readily available, this report includes an eGFR for both -Americans and non- Americans. The National Kidney Disease Education Program (NKDEP) does not endorse the use of the MDRD equation for patients that are not between the ages of 18 and 70, are , have extremes of body size, muscle mass, or nutritional status, or are non- or non-. According to the National Kidney Foundation, irrespective of diagnosis, the stage of the disease is based on the level of kidney function: Stage Description GFR(mL/min/1.73 m(2)) 1 Kidney damage with normal or decreased GFR 90 2 Kidney damage with mild decrease in GFR 60-89 3 Moderate decrease in GFR 30-59 4 Severe decrease in GFR 15-29 5 Kidney failure <15 (or dialysis) 52 Patient is On Antibiotics? NO 53 SEE RESULT BELOW Name: AIDAN PEARL : [address]: Hammad Butler DO Acct: [id number] Unit: [id number] AGE: 84 Location: ED Re02/01/15 SEX: M Status: DEP ER SPEC: [id number] MAYUR: [birth year][address] [facility] [address]: Hammad Butler DO REQ: [id number] RECD: 02/01/15 STATUS: NIKKO BACK DR: Pawel Herring III, MD _ SOURCE: BLOOD,VENO SPDESC: ORDERED: Blood Cult COMMENTS: Patient is On Antibiotics? NO Verbal to [id number] by [id number] at 1541 on 02/02/15. Results read back accurately. Procedure Result Verified Site Aerobic Culture Bottle Final 02/05/15- 1230 ML Aerobic Bottle Gram Stain Gram Variable Coccobacilli Organism 1 ACINETOBACTER LWOFFI Organism 2 MICROCOCCUS SPECIES 1. ACINETOBACTER LWOFFI M.I.C. RX --------- ------ Gentamicin <=1 S Contact the Microbiology Department for any additional antibiotic reporting. Anaerobic Culture Bottle Final 02/06/15- 2037 ML No Growth Day 5 * ML - MAIN LAB (PSC1) . END OF REPORT * ML=Testing performed at Main Lab DEPARTMENT OF PATHOLOGY, [address] [place] [address] Harlan Montelongo M.D. Director [facility] # [id number] 54 Because ethnic data is not always readily available, this report includes an eGFR for both -Americans and non- Americans. The National Kidney Disease Education Program (NKDEP) does not endorse the use of the MDRD equation for patients that are not between the ages of 18 and 70, are , have extremes of body size, muscle mass, or nutritional status, or are non- or non-. According to the National Kidney Foundation, irrespective of diagnosis, the stage of the disease is based on the level of kidney function: Stage Description GFR(mL/min/1.73 m(2)) 1 Kidney damage with normal or decreased GFR 90 2 Kidney damage with mild decrease in GFR 60-89 3 Moderate decrease in GFR 30-59 4 Severe decrease in GFR 15-29 5 Kidney failure <15 (or dialysis) 55 Desirable <150 Borderline high 150-199 High 200-499 Very High >500 56 Desirable <200 Borderline high 200-239 High >239 57 Low <40 Desirable: 40-60 High: >60 58 Desirable: <100 mg/dL Near Optimal: 100-129 mg/dL Borderline High: 130-159 mg/dL High: 160-189 mg/dL Very High: >189 mg/dL 59 Therapeutic target for the treatment of diabetes Mellitus patients is <7% HBA1C, and in selective patients <6.0%.Please refer to [place] [employer] Association Diabetic care guidelines for further information. 60 >100 to <200 pg/mL: likely compensated congestive heart failure (CHF) 200 to 400 pg/mL: likely moderate CHF >400 pg/mL: likely moderate to severe CHF [facility] 61 PT IS FASTING 62 Desirable <150 Borderline high 150-199 High 200-499 Very High >500 63 Desirable <200 Borderline high 200-239 High >239 64 Low <40 Desirable: 40-60 High: >60 65 Desirable <100 Near Optimal 100-129 Borderline high 130-159 High 160-189 Very High >189 66 Because ethnic data is not always readily available, this report includes an eGFR for both -Americans and non- Americans. The National Kidney Disease Education Program (NKDEP) does not endorse the use of the MDRD equation for patients that are not between the ages of 18 and 70, are , have extremes of body size, muscle mass, or nutritional status, or are non- or non-. According to the National Kidney Foundation, irrespective of diagnosis, the stage of the disease is based on the level of kidney function: Stage Description GFR(mL/min/1.73 m(2)) 1 Kidney damage with normal or decreased GFR 90 2 Kidney damage with mild decrease in GFR 60-89 3 Moderate decrease in GFR 30-59 4 Severe decrease in GFR 15-29 5 Kidney failure <15 (or dialysis) 67 RUN DATE: 03/21/13 [facility] LAB LIVE PAGE 1 RUN TIME: [address] [place] [id number] Specimen Inquiry Name: AIDAN PEARL : [address]: Peter Ross MD Acct: [id number] Unit: [id number] AGE: 82 Location: ENDO Re03/20/13 SEX: M Status: REG REF SPEC: [id number] MAYUR: 03/20/13-[address] [facility] [address]: Peter Ross MD REQ: [id number] RECD: 03/20/13 STATUS: NIKKO BACK DR: Pawel Herring III, MD _ SOURCE: GAS ANTRUM SPDESC: ORDERED: Clotest Procedure Result Verified Site Clotest Final 03/21/13809 ML Clotest Negative END OF REPORT * ML=Testing performed at Main Lab DEPARTMENT OF PATHOLOGY, [address] [place] [address] Harlan Montelongo M.D. Director [place] [employer] Permit #[id number] 68 Reference Range and Interpretation: TnI (ng/mL) Interpretation Less Than 0.06 ng/mL Not supportive of diagnosis of RI 0.06 - 0.50 ng/mL Indeterminate: suggest serial studies if clinically indicated. Greater than 0.5 ng/mL Consistent with diagnosis of RI 69 Because ethnic data is not always readily available, this report includes an eGFR for both -Americans and non- Americans. The National Kidney Disease Education Program (NKDEP) does not endorse the use of the MDRD equation for patients that are not between the ages of 18 and 70, are , have extremes of body size, muscle mass, or nutritional status, or are non- or non-. According to the National Kidney Foundation, irrespective of diagnosis, the stage of the disease is based on the level of kidney function: Stage Description GFR(mL/min/1.73 m(2)) 1 Kidney damage with normal or decreased GFR 90 2 Kidney damage with mild decrease in GFR 60-89 3 Moderate decrease in GFR 30-59 4 Severe decrease in GFR 15-29 5 Kidney failure <15 (or dialysis) 70 HDL Interpretation: Undesirable: High Risk: Less than 40 mg/dL Desirable: Low Risk: Greater than 60 mg/dL 71 LDL Interpretation: Low Risk Optimal Level: LDL Less than 100 mg/dL Near or Above Optimal: LDL 100-129 mg/dL Borderline High Risk: LDL 130-159 mg/dL High Risk: LDL 160-189 mg/dL Very High Risk: LDL Greater than 189 mg/dL 72 Because ethnic data is not always readily available, this report includes an eGFR for both -Americans and non- Americans. The National Kidney Disease Education Program (NKDEP) does not endorse the use of the MDRD equation for patients that are not between the ages of 18 and 70, are , have extremes of body size, muscle mass, or nutritional status, or are non- or non-. According to the National Kidney Foundation, irrespective of diagnosis, the stage of the disease is based on the level of kidney function: Stage Description GFR(mL/min/1.73 m(2)) 1 Kidney damage with normal or decreased GFR 90 2 Kidney damage with mild decrease in GFR 60-89 3 Moderate decrease in GFR 30-59 4 Severe decrease in GFR 15-29 5 Kidney failure <15 (or dialysis) 73 RUN DATE: 03/12/12 [facility] NMI LIVE PAGE 1 RUN TIME: 1238 Specimen Inquiry RUN USER: INTERFACE Name: AIDAN PEARL Accdipika#: [id number] Status: REG REF Re03/10/12 Age/Sex: 81/M Unit#: [id number] Location: [facility] : [birth year] SPEC #: [id number] MAYUR: 03/10/12-1046 STATUS: COMP REQ #: [id number] RECD: 03/10/12-[address]: Niko MONTERO,Sri Rene SOURCE: THROAT ENTR: 03/10/12-[address]: ZAID: ORDERED: THROAT CULTURE QUERIES: MEDENT REQUISITION # [id number] ACT WKST: B 03/12/12 #1 Procedure Result Verified Site > THROAT CULTURE FULL Final -1238 ML Organism 1 YEAST QUANTITY MANY Organism 2 NORMAL CANDI QUANTITY MANY FULL THROAT CULTURES ARE CLINICALLY INDICATED TO DETECT THE PRESENCE OF GROUP A STREP, ARCANOBACTERIUM AND YEAST. - [facility] State Permit #[id number] [facility] [employer] [place] [address] DEPARTMENT OF PATHOLOGY, [facility] [employer] [place] [address] [place] Permit #[id number] Harlan Montelongo M.D. Director Bruce Jarrett M.D. [employer] 74 REFERENCE RANGES BASED ON ROOM AIR 75 Anion gap measurement may be of limited value in the presence of any alkalosis, especially in a combined acid base disorder. . 76 A metabolite of Naproxen, O-desmethylnaproxen, has been shown to interfere with the Jendrassik-Bella method for measuring total bilirubin. Samples from patients who have taken Naproxen have shown spurious elevation in total bilirubin levels. 77 Because ethnic data is not always readily available, this report includes an eGFR for both -Americans and non- Americans. The National Kidney Disease Education Program (NKDEP) does not endorse the use of the MDRD equation for patients that are not between the ages of 18 and 70, are , have extremes of body size, muscle mass, or nutritional status, or are non- or non-. According to the National Kidney Foundation, irrespective of diagnosis, the stage of the disease is based on the level of kidney function: Stage Description GFR(mL/min/1.73 m(2)) 1 Kidney damage with normal or decreased GFR 90 2 Kidney damage with mild decrease in GFR 60-89 3 Moderate decrease in GFR 30-59 4 Severe decrease in GFR 15-29 5 Kidney failure <15 (or dialysis) 78 CHOLESTEROL INTERPRETATION: Desirable: Less than 200 MG/DL Borderline-High Risk: 200-239 MG/DL High-Risk: 240 MG/DL and over 79 HDL INTERPRETATION: Undesirable: High Risk: Less than 40 MG/DL Desirable: Low Risk: Greater than 60 MG/DL 80 LDL INTERPRETATION: Low Risk Optimal Level: LDL Less than 100 MG/DL Near or Above Optimal: LDL 100-129 MG/DL Borderline High Risk: LDL 130-159 MG/DL High Risk: LDL 160-189 MG/DL Very High Risk: LDL Greater than 189 MG/DL 81 Anion gap measurement may be of limited value in the presence of any alkalosis, especially in a combined acid base disorder. . 82 A metabolite of Naproxen, O-desmethylnaproxen, has been shown to interfere with the Jendrassik-Bella method for measuring total bilirubin. Samples from patients who have taken Naproxen have shown spurious elevation in total bilirubin levels. 83 Because ethnic data is not always readily available, this report includes an eGFR for both -Americans and non- Americans. The National Kidney Disease Education Program (NKDEP) does not endorse the use of the MDRD equation for patients that are not between the ages of 18 and 70, are , have extremes of body size, muscle mass, or nutritional status, or are non- or non-. According to the National Kidney Foundation, irrespective of diagnosis, the stage of the disease is based on the level of kidney function: Stage Description GFR(mL/min/1.73 m(2)) 1 Kidney damage with normal or decreased GFR 90 2 Kidney damage with mild decrease in GFR 60-89 3 Moderate decrease in GFR 30-59 4 Severe decrease in GFR 15-29 5 Kidney failure <15 (or dialysis) 84 CHOLESTEROL INTERPRETATION: Desirable: Less than 200 MG/DL Borderline-High Risk: 200-239 MG/DL High-Risk: 240 MG/DL and over 85 HDL INTERPRETATION: Undesirable: High Risk: Less than 40 MG/DL Desirable: Low Risk: Greater than 60 MG/DL 86 LDL INTERPRETATION: Low Risk Optimal Level: LDL Less than 100 MG/DL Near or Above Optimal: LDL 100-129 MG/DL Borderline High Risk: LDL 130-159 MG/DL High Risk: LDL 160-189 MG/DL Very High Risk: LDL Greater than 189 MG/DL 87 Anion gap measurement may be of limited value in the presence of any alkalosis, especially in a combined acid base disorder. . 88 Note change in reference range as of 03/07/08. The change was based on recommendations from the [place] Diabetes [employer]. 89 A metabolite of Naproxen, O-desmethylnaproxen, has been shown to interfere with the Jendrassik-[place]incoln[place] method for measuring total bilirubin. Samples from patients who have taken Naproxen have shown spurious elevation in total bilirubin levels. 90 Because ethnic data is not always readily available, this report includes an eGFR for both -Americans and non- Americans. The National Kidney Disease Education Program (NKDEP) does not endorse the use of the MDRD equation for patients that are not between the ages of 18 and 70, are , have extremes of body size, muscle mass, or nutritional status, or are non- or non-. According to the National Kidney Foundation, irrespective of diagnosis, the stage of the disease is based on the level of kidney function: Stage Description GFR(mL/min/1.73 m(2)) 1 Kidney damage with normal or decreased GFR 90 2 Kidney damage with mild decrease in GFR 60-89 3 Moderate decrease in GFR 30-59 4 Severe decrease in GFR 15-29 5 Kidney failure <15 (or dialysis) 91 CHOLESTEROL INTERPRETATION: Desirable: Less than 200 MG/DL Borderline-High Risk: 200-239 MG/DL High-Risk: 240 MG/DL and over 92 HDL INTERPRETATION: Undesirable: High Risk: Less than 40 MG/DL Desirable: Low Risk: Greater than 60 MG/DL 93 LDL INTERPRETATION: Low Risk Optimal Level: LDL Less than 100 MG/DL Near or Above Optimal: LDL 100-129 MG/DL Borderline High Risk: LDL 130-159 MG/DL High Risk: LDL 160-189 MG/DL Very High Risk: LDL Greater than 189 MG/DL 94 Imm. NE 1 95 THERAPEUTIC TARGET FOR THE TREATMENT OF DIABETES MELLITUS PATIENTS IS <7% HBA1C, AND IN SELECTIVE PATIENTS <6.0%. PLEASE REFER TO [place] DIAB[employer] ASSOCIATION DIABETIC CARE GUIDELINES FOR FURTHER INFORMATION. 96 CHOLESTEROL INTERPRETATION: Desirable: Less than 200 MG/DL Borderline-High Risk: 200-239 MG/DL High-Risk: 240 MG/DL and over 97 HDL INTERPRETATION: Undesirable: High Risk: Less than 40 MG/DL Desirable: Low Risk: Greater than 60 MG/DL 98 LDL INTERPRETATION: Low Risk Optimal Level: LDL Less than 100 MG/DL Near or Above Optimal: LDL 100-129 MG/DL Borderline High Risk: LDL 130-159 MG/DL High Risk: LDL 160-189 MG/DL Very High Risk: LDL Greater than 189 MG/DL 99 FASTING PATIENT MAY HAVE RESULTS PER DOCTOR'S AUTHORIZATION. Questions regarding this report should be directed to your doctor. 100 Anion gap measurement may be of limited value in the presence of any alkalosis, especially in a combined acid base disorder. . 101 Note change in reference range as of 03/07/08. The change was based on recommendations from the [place] Diabetes Association. 102 Please note change in reference range effective 07 . 103 A metabolite of Naproxen, O-desmethylnaproxen, has been shown to interfere with the Jendrassik-Lincolnton method for measuring total bilirubin. Samples from patients who have taken Naproxen have shown spurious elevation in total bilirubin levels. 104 Because ethnic data is not always readily available, this report includes an eGFR for both -Americans and non- Americans. The National Kidney Disease Education Program (NKDEP) does not endorse the use of the MDRD equation for patients that are not between the ages of 18 and 70, are , have extremes of body size, muscle mass, or nutritional status, or are non- or non-. According to the National Kidney Foundation, irrespective of diagnosis, the stage of the disease is based on the level of kidney function: Stage Description GFR(mL/min/1.73 m(2)) 1 Kidney damage with normal or decreased GFR 90 2 Kidney damage with mild decrease in GFR 60-89 3 Moderate decrease in GFR 30-59 4 Severe decrease in GFR 15-29 5 Kidney failure <15 (or dialysis) 105 * SERUM LEVELS OF PSA MEASURED USING THE [employer] ACCESS HYBRITECH IMMUNOASSAY SHOULD NOT BE INTERPRETED ABSOLUTE EVIDENCE OF THE PRESENCE OR ABSENCE OF DISEASE. THE PSA VALUE SHOULD BE USED IN CONJUNCTION WITH OTHER PERTINENT CLINICAL DIAGNOSTIC PROCEDURES. 106 CHOLESTEROL INTERPRETATION: Desirable: Less than 200 MG/DL Borderline-High Risk: 200-239 MG/DL High-Risk: 240 MG/DL and over 107 HDL INTERPRETATION: Undesirable: High Risk: Less than 40 MG/DL Desirable: Low Risk: Greater than 60 MG/DL 108 LDL INTERPRETATION: Low Risk Optimal Level: LDL Less than 100 MG/DL Near or Above Optimal: LDL 100-129 MG/DL Borderline High Risk: LDL 130-159 MG/DL High Risk: LDL 160-189 MG/DL Very High Risk: LDL Greater than 189 MG/DL 109 Anion gap measurement may be of limited value in the presence of any alkalosis, especially in a combined acid base disorder. . 110 Note change in reference range as of 03/07/08. The change was based on recommendations from the [place] Diabetes [employer]. 111 Please note change in reference range effective 07 . 112 A metabolite of Naproxen, O-desmethylnaproxen, has been shown to interfere with the Jendrassik-Bella method for measuring total bilirubin. Samples from patients who have taken Naproxen have shown spurious elevation in total bilirubin levels. 113 Because ethnic data is not always readily available, this report includes an eGFR for both -Americans and non- Americans. The National Kidney Disease Education Program (NKDEP) does not endorse the use of the MDRD equation for patients that are not between the ages of 18 and 70, are , have extremes of body size, muscle mass, or nutritional status, or are non- or non-. According to the National Kidney Foundation, irrespective of diagnosis, the stage of the disease is based on the level of kidney function: Stage Description GFR(mL/min/1.73 m(2)) 1 Kidney damage with normal or decreased GFR 90 2 Kidney damage with mild decrease in GFR 60-89 3 Moderate decrease in GFR 30-59 4 Severe decrease in GFR 15-29 5 Kidney failure <15 (or dialysis) 114 AKHIL VALUE=2.01 ( OF 06/23/07 Recommended INR for Patients on Oral Anticoagulants Prophylaxis 2.0 - 3.0 Treatment of thrombosis 2.0 - 3.0 Prevention of embolism 2.0 - 3.0 Prevention of embolism from prosthetic heart valves 2.5 - 3.5 115 Anion gap measurement may be of limited value in the presence of any alkalosis, especially in a combined acid base disorder. . 116 Please note change in reference range effective 07 . 117 Note change in reference range as of 03/07/08. The change was based on recommendations from the [place] Diabetes [employer]. 118 PLEASE NOTE NEW REFERENCE RANGE EFFECTIVE 07. 119 CHOLESTEROL INTERPRETATION: Desirable: Less than 200 MG/DL Borderline-High Risk: 200-239 MG/DL High-Risk: 240 MG/DL and over 120 HDL INTERPRETATION: Undesirable: High Risk: Less than 40 MG/DL Desirable: Low Risk: Greater than 60 MG/DL 121 LDL INTERPRETATION: Low Risk Optimal Level: LDL Less than 100 MG/DL Near or Above Optimal: LDL 100-129 MG/DL Borderline High Risk: LDL 130-159 MG/DL High Risk: LDL 160-189 MG/DL Very High Risk: LDL Greater than 189 MG/DL 122 Classification: Desirable . 123 CALCULATED LDL APPROXIMATES THE VALUE OF A DIRECT LDL MEASUREMENT. Classification: Optimal Level . 124 PATIENT MAY HAVE RESULTS PER DOCTOR'S AUTHORIZATION. Questions regarding this report should be directed to your doctor. 125 Anion gap measurement may be of limited value in the presence of any alkalosis, especially in a combined acid base disorder. . 126 Classification: Borderline High . 127 CALCULATED LDL APPROXIMATES THE VALUE OF A DIRECT LDL MEASUREMENT. Classification: Borderline High . 128 * SERUM LEVELS OF PSA MEASURED USING THE [employer] ACCESS HYBRITECH IMMUNOASSAY SHOULD NOT BE INTERPRETED ABSOLUTE EVIDENCE OF THE PRESENCE OR ABSENCE OF DISEASE. THE PSA VALUE SHOULD BE USED IN CONJUNCTION WITH OTHER PERTINENT CLINICAL DIAGNOSTIC PROCEDURES. Procedures Date CPT Code Description Status 11/09/2017 48864 EKG Tracing & Interpretation Completed 10/28/201758996 Inject/Drain Joint/Bursa Major Completed 10/28/201780859 Inject/Drain Joint/Bursa Major Completed 07/29/201726440 Inject/Drain Joint/Bursa Major Completed 04/27/201745817 Inject/Drain Joint/Bursa Major Completed 01/24/201737054 Inject/Drain Joint/Bursa Major Completed 01/12/2017 03984 Removal Devitalization Tissue Wound Less Than Equal 20 Completed Square CM 01/05/2017 11208 Removal Devitalization Tissue Wound Less Than Equal 20 Completed Square CM 12/29/2016 94917 Removal Devitalization Tissue Wound Less Than Equal 20 Completed Square CM 10/27/201640538 Inject/Drain Joint/Bursa Major Completed 10/22/2016 25782 EKG Tracing & Interpretation Completed 07/28/201653478 Inject/Drain Joint/Bursa Major Completed 03/29/201686012 Inject/Drain Joint/Bursa Major Completed 12/26/201513624 Inject/Drain Joint/Bursa Major Completed 10/23/2015 24595 EKG Tracing & Interpretation Completed 09/25/2015 84905 Holter Monitoring 24 HR New Completed 09/24/2015 59799 Holter Monitoring 24 HR New Completed 09/24/2015 64336 Inject/Drain Joint/Bursa Major Completed 09/04/2015 52146 EKG Tracing & Interpretation Completed 09/02/2015 31876 Holter Monitoring 24 HR New Completed 09/01/2015 23861 Holter Monitoring 24 HR New Completed 08/03/2015 99909 EKG, Interpretation Only Completed 08/03/201517984 Inject/Drain Joint/Bursa Major Completed 07/22/2015 53484 ECHO Transthorasic Realtime 2D W Doppler & Color Completed Flow Hosp 07/22/2015 59188 ECHO Transthorasic Realtime 2D W Doppler & Color Completed Flow Hosp 06/16/201590442 Inject/Drain Joint/Bursa Major Completed 03/31/2015 03246 Inject/Drain Joint/Bursa Major Completed 11/04/2014 78680 Pulmonary Stress Test Simple Completed 11/04/2014 02558 Plethysmography Determination Lung Volumes & Per Completed Airway Resist 11/04/2014 52529 Diffusing Capacity Completed 03/01/2014 48499 ECHO Transthoracic, Real-Time 2D With Doppler And Color Completed Flow 02/28/2014 38125 EKG Tracing & Interpretation Completed 01/03/2013 96481 EKG Tracing & Interpretation Completed 12/21/2011 69523 Holter Monitor Review (24 hr)dr ernestina & interp Completed only 12/15/2011 01914 Noninvasive Ear Or Pulse Oximetry For Oxygen Saturation Completed 08/25/2010 38679 Pulse Oximetry-Mutl Determ Completed 08/25/2010 05284 Pulmonary Function><Bronchodilator Completed 05/25/2010 67664 Noninvasive Ear Or Pulse Oximetry For Oxygen Saturation Completed 05/25/2010 59742 EKG Tracing & Interpretation Completed 10/22/2009 11405 Noninvasive Ear Or Pulse Oximetry For Oxygen Saturation Completed 02/20/2009 30798 EKG Tracing & Interpretation Completed 01/10/2008 31599 EKG Tracing & Interpretation Completed 01/10/2008 36594 Pulse Oximetry-Mutl Determ Completed 12/13/2007 31482 Pulmonary Function><Bronchodilator Completed 12/13/2007 10371 EKG Tracing & Interpretation Completed 07/24/2007 14414 Treadmill Interp/Report Only Completed 07/24/2007 66136 Treadmill Interp/Report Only Completed 07/24/2007 16051 Stress Test Supervsn W/Out I/R Completed 07/19/2007 76559 Pulse Oximetry-Mutl Determ Completed 07/19/2007 64578 EKG Tracing & Interpretation Completed 07/19/2007 24927 EKG Tracing & Interpretation Completed 03/01/2007 45335 EKG Tracing & Interpretation Completed 03/01/2007 87179 EKG Tracing & Interpretation Completed 03/06/2001 Colonoscopy Completed Encounters Type Date Location Provider CPT E/M Dx Office Visit 11/09/2017 [facility] Rocael Ayala, 39482 I48.2 9:30a Cristina Colvin I10 Office Visit 05/30/2017 2:40p [facility] Internal Medicine Pawel Herring, 80233 J20.9 - Steven Colvin Office Visit 04/28/2017 10:00a [facility] Internal Medicine Pawel Herring, 84125 R30.0 - Steven Colvin G31.84 I10 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 Office Visit 04/06/2017 9:00a [place] [address] S41.112A At [facility] Office Visit 03/30/2017 10:15a [place] [address] S41.112A At [facility] [facility] Office Visit 03/23/2017 9:30a [place] [address] S41.112A At [facility] W06.xxxA Office Visit 01/26/2017 9:00a [facility] Vinh Whitman 95873 S81.812A At [facility] [facility] [place] MD Office Visit 12/29/2016 9:15a [facility] [place] Vinh Whitman, 20689 S81.812A At [facility] [place] MD Office Visit 12/24/2016 9:40a [facility] Internal Pawel Herring, 36642 E11.9 Medicine - Vinicius Harris I10 I48.2 J44.9 Office Visit 12/08/2016 11:00a [facility] Internal Medicine Pawel Herring, 90603 S81.802A - Steven Colvin Office Visit 10/22/2016 10:00a [facility] Pankaj Ayala, 29949 I48.2 Cristina Colvin I10 I25.10 Office Visit 09/23/2016 10:40a [facility] Internal Medicine Pawel Herring, 96270 E11.9 - [place] M.Dhaval Office Visit 05/24/2016 10:00a [facility] Internal Medicine Pawel Herring, 68208 E11.9 - [place] M.Dhaval I10 I48.2 J44.9 Office Visit 02/18/2016 9:00a [facility] Internal Medicine - Pawel Herring, 06631 E11.9 Sudhakar Colvin Office Visit 10/23/2015 10:45a [facility], 46995 I10 Cristina M.Dhaval I48.2 Office Visit 10/22/2015 10:00a [facility] Internal Medicine Pawel Herring, 41943 R60.0 - Sudhakar Colvin I10 I48.2 J44.9 Office Visit 09/30/2015 11:00a [facility] Internal Medicine Pawel Herring, 49629 L03.114 - Sudhakar Colvin R60.0 I48.91 Office Visit 09/19/2015 9:40a [facility] Internal Medicine Pawel Herring, 93513 R60.0 - Sudhakar Colvin I48.91 Office Visit 09/04/2015 12:00p [facility] Er Rocaelbeltran Ayala, 01759 R94.31 Cristina Bonilla.Dhaval I48.91 Office Visit 08/21/2015 3:20p [facility] Internal Medicine Pawel Herring, 79179 I48.91 - Sudhakar Colvin R60.0 J44.1 Office Visit 08/12/2015 10:00a [facility] Internal Medicine Pawel Herring, 00096 I48.91 - Sudhakar Colvin J44.1 R73.01 R10.84 I10 Office Visit 08/05/2015 11:17a [facility], Orlin Stinson, 73205 R65.10 Hospitalists Vinicius J43.1 E86.1 R53.1 Office Visit 08/04/2015 11:08a [facility], Orlin Stinson, 78713 R65.10 Hospitalists Vinicius J43.1 E86.1 R53.1 Office Visit 08/03/2015 7:00a [facility] [place] [address] M25.061 C.M.A. Office Visit 08/03/2015 11:07a [facility] Orlin Milad, 49725 R65.10 Hospitalists MAmol J43.1 E86.1 R53.1 Office Visit 08/01/2015 11:06a [facility] [place], [address] R53.1 Assoc,pc Hospitalists MAmol E86.1 R65.10 J43.1 Office Visit 07/27/2015 11:19a [facility] Nereida Johnathon, 14326 R53.1 Hospitalists M.Dhaval J44.1 R06.09 I48.91 Office Visit 07/26/2015 11:18a [facility] Nereida Diego, 98408 R53.1 Hospitalists MAmol J44.1 R06.09 I48.91 Office Visit 07/25/2015 11:18a [facility], Juhi Pitts, 84524 R53.1 Hospitalists MAmol J44.1 R06.09 I48.91 Office Visit 07/24/2015 10:36a [facility] [address] R06.02 Services Of Director Of Hemophilia J44.1 I48.91 Office Visit 07/24/2015 11:18a [facility] Juhi Pitts, 18757 R53.1 Hospitalists Vinicius J44.1 R06.09 I48.91 Office Visit 07/23/2015 10:32a [facility] [place] [address] R06.02 Services Of Director Of Hemophilia J44.1 I48.91 Office Visit 07/23/2015 11:17a [facility] Juhi Pitts, 81461 R53.1 Hospitalists MAmol R06.09 I48.91 I10 Office Visit 07/22/2015 2:12p [facility] Of Rocael Ayala, 58675 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 41128 R53.1 Hospitalists R06.09 I10 Office Visit 07/15/2015 9:40a [facility] Internal Medicine - James Quinteros, KYLAH 34264 N39.0 Sudhakar R30.0 Office Visit 06/30/2015 10:40a [facility] Internal Medicine Pawel Herring, 85955 N39.0 - Sudhakar Colvin Office Visit 04/28/2015 11:30a [facility] Rema Gonzalez M.D. 82925 M17.12 C.M.A. S70.12xA M25.552 Office Visit 03/31/2015 9:00a [facility] Gonzalez M.D. 52261 715.16 C.M.ADennis 719.06 719.46 Office Visit 02/05/2015 10:20a [facility] Internal Medicine Pawel Herring 33991 496 - Sudhakar Colvin Office Visit 11/26/2014 9:40a [facility] Internal Medicine Pawel Herring 31386 782.3 - Sudhakar Colvin 401.1 496 272.0 790.21 Office Visit 11/13/2014 8:30a [facility] [address] 492.8 Services Of [facility] 496 518.83 Office Visit 07/09/2014 10:20a [facility] Internal Medicine Pawel Herring 77700 780.93 - Sudhakar Colvin 401.1 496 Office Visit 06/24/2014 10:15a [facility] [place] [address] 496 Services Of [facility] 786.05 780.59 Office Visit 02/28/2014 9:30a [facility] Rocael Ayala 75958 427.31 Cristina Colvin 496 Office Visit 12/13/2013 11:40a [facility] Internal Medicine Pawel Herring 55497 782.3 - Sudhakar Colvin Office Visit 08/31/2013 10:00a [facility] Internal Medicine Pawel Herring 46276 466.0 - Goodman M.DDennis 496 Office Visit 01/03/2013 9:30a [facility] Rocael Ayala, 34107 427.31 Director Of Hemophilia M.DDennis 496 401.9 Office Visit 06/05/2012 10:40a [facility] Internal Medicine - Pawel Herring, 54547 496 Goodman M.DDennis 401.1 Office Visit 04/05/2012 2:00p [facility] Internal Medicine - Pawel Herring, 06878 496 Goodman M.D. Office Visit 03/17/2012 1:30p [facility] Internal Medicine - Sri Pope, N.P. 04773 496 Goodman 466.0 Office Visit 03/10/2012 10:00a [facility] Internal Medicine Sri Pope, N.P. 52100 466.0 - Goodman 496 Office Visit 01/03/2012 11:40a [facility] Internal Medicine - Pawel Herring, 19640 496 Goodman M.D. Office Visit 12/24/2011 10:30a [facility] Internal Medicine - Sri Pope, N.P. 91184 496 Goodman Office Visit 12/15/2011 10:00a [facility] Internal Medicine - Pawel Herring, 68290 496 Goodman M.DDennis 401.1 Office Visit 12/03/2011 9:00a [facility] Internal Medicine - Pawel Herring, 25064 496 Goodman M.Dhaval 401.1 272.0 790.21 427.31 Office Visit 05/26/2011 9:00a DO Not Use Director Of Hemophilia At Pawel Herring, 28008 496 Suzy Bonilla.Dhaval 401.1 790.21 272.0 Office Visit 08/25/2010 9:40a DO Not Use Director Of Hemophilia At Pawel Herring, 89599 496 Park[place] M.DDennis Office Visit 05/25/2010 9:00a DO Not Use Director Of Hemophilia At Pawel Herring, 17481 401.1 Parkamanda M.DDennis 496 272.0 V70.0 Office Visit 11/19/2009 10:20a DO Not Use Director Of Hemophilia At Pawel Herring, 57533 272.0 [place] M.D. 496 401.1 Office Visit 10/22/2009 9:20a DO Not Use Director Of Hemophilia At [facility], 21624 466.0 [facility] 496 272.0 Office Visit 05/21/2009 11:00a DO Not Use Director Of Hemophilia At [facility], 43769 496 [facility] 401.1 272.0 Office Visit 03/05/2009 11:00a [facility], 16535 782.3 [facility] M.D. Office Visit 02/20/2009 11:30a [facility], 96725 496 [facility] 401.1 Office Visit 11/20/2008 10:45a [facility] At [facility], 52434 496 [facility].D. Office Visit 10/21/2008 10:45a [facility] At [facility], 92114 466.0 [facility] M.D. Office Visit 06/05/2008 10:00a [facility] At [facility], 54224 786.05 [facility].D. 496 Office Visit 01/10/2008 11:15a [facility] At [facility], 60258 785.0 [facility].D. 272.0 Office Visit 12/13/2007 2:00p [facility], 10988 496 [facility] M.D. Office Visit 11/22/2007 10:00a [facility], 70685 272.0 [facility].D. 401.1 Office Visit 09/12/2007 12:37p [facility], 50686 272.0 [facility].D. 401.1 427.1 Office Visit 09/12/2007 9:45a [facility], 09189 272.0 [facility].D. 401.1 427.1 Office Visit 08/01/2007 1:45p [facility], 35082 427.1 [facility] 07/19/2007 9:30a [facility], 66202 786.05 [facility] Office Visit 05/24/2007 9:45a [facility], 26470 496 [facility] 401.1 272.0 Office Visit 03/01/2007 2:30p [facility], 40997 401.1 [facility] 496 272.0 366.9 Office Visit 02/16/2007 1:30p [facility], 20108 401.1 [facility] 496 272.0 Plan of Care Future Appointment(s):01/27/2018 9:30 am - Rema Gonzalez M.D. at [facility]02/13/2018 9:20 am - Pawel Herring M.D. at [facility] Internal Medicine - [id number]/25/2018 - Rocael Ayala M.D.I48.2 Chronic atrial fibrillationFollow up:1 yearI10 Essential (primary) hypertension
[2017-11-19] MEDS ORDERED: Dextrose 50% Syringe 50 ML* 25 GM/50 ML SYRINGE IV PUSH PRN (22:04)
--- OUTSIDE RECORDS SUMMARY | 2017-11-19 22:04 | XMS REPORT ---
:1930 External Reference #:[id number] Author Organization [employer] Address [address] [address] Phone [phone] Care Team Providers Name Role Phone Pawel Herring III, MD Primary Care Physician Unavailable Payers Type Date Identification Numbers Payment Provider Subscriber Medicare Primary Effective: Policy Number: Medicare Aidan Pearl 1995 [id number] PayID: [id number] [address] [place] [address] Medigap Part B Effective: Policy Number: [facility] Aidan Styles 2013 [id number] Healthcare Dae PayID: [id number] [address] [place] [address] Medigap Part B Expires: 2013 Policy Number: [facility] Aidan Pearl [id number] PayID: [id number] [address] [address] [place] [address] Problems Date Description Provider Status Onset: 05/26/2011 [...] Pawel E. a day via Nevaeh, nebulizer M.DDennis Ipratropium 09/01/2015 Active Solution 0.02% 150ml inhale the Pawel E. [place] contents of Nevaeh, one vial via M.DDennis [...] take 1 tablet Pawel E. by mouth Nveaeh, every night MAmol at bedtime Aleve 01/10/2008 Active Tablets 220mg 1 po qam prn Pawel Herring M.D. Oxygen Active used Unknown Concentrato continuous at r night Compression Active Misc 20-30 MMHG Unknown Stockings Knee Highs Lisinopril- Active Tablets 20-12.5mg 90tabs 1 by mouth Pawel Hinojosa Hydrochloro every day Nevaeh thiazide Vinicius Azithromyci 06/01/2017 Hx Tablets 250mg 6tabs two tabs day Virgil bobo, one Dhaval Nolan, 06/06/2017 daily till Vinicius,FACP gone Potassium 10/22/2015 Hx Tablets ER 10Meq 90tabs take 1 tab Pawel E. Citrate ER - (1080 mg) daily Nevaeh 02/18/2016 Vinicius Lasix 09/30/2015 Hx Tablets 40mg 90tabs 1 po daily Pawel Herring, 08/10/2017 Vinicius Burroughs CD 08/25/2015 Hx Caps ER 120mg 90caps 1 by mouth Pawel EDennis - 24HR every day-on Nevaeh, 08/25/2015 hold [...] Tablets 5mg 180tabs 1 by mouth Pawel EDennis - twice a day Nevaeh, 08/21/2015 Vinicius [...] Hx Tablets 800-160mg 28tabs 1 tab by N39. James azole/Trime - mouth twice a 0 Quinteros, VERMIN EXTERMINATOR thoprim DS 08/21/2015 day x 2 weeks Furosemide 11/26/2014 Hx Tablets 20mg 30tabs take 1 tablet 782. Pawel E. - by mouth 3 Nevaeh, 02/05/2015 every morning MAmol Azithromyci 08/31/2013 Hx Tablets 250mg 6tabs two tabs day Pawel Hinojosa n - one, one Nevaeh, 12/13/2013 daily till M.D. gone Proair HFA 12/04/2012 Hx Aerosol 108(90Base 3units 2 puffs by Pawel EDennis - ) mcg/Act mouth four Nevaeh, 02/18/2016 [...] tab x 1day Nystatin 03/14/2012 Hx Suspension [id number] 60ml 400,000 units Sri - /ML 4 [...] Aerosol 45mcg/Act 3units 2 puffs qid Pawel E. - prn Nevaeh, 12/04/2012 MAmol Proair HFA 12/15/2011 Hx Aerosol 108(90Base 3units 2 Puffs qid Pawel E. - ) mcg/ac prn Nevaeh, 01/03/2012 Vinicius Zestoretic 12/03/2011 Hx Tablets 20-25mg 90tabs 1 by mouth Pawel Hinojosa - every day Nevaeh, 08/12/2015 Vinicius Zestoretic 06/21/2011 Hx Tablets 20-12.5mg 90tabs 1 po qd Pawel Herring, 12/03/2011 Vinicius Spiriva 08/25/2010 Hx Capsules 18mcg 90caps Not Using 1 Pawel Hinojosa Handihaler - inhalations Nevaeh, 05/30/2017 from one M.DDennis capsule daily Prednisone 08/25/2010 Hx Tablets 20mg 10tabs 1 po qd Pawel Herring, 11/18/2010 MAmol Zithromax 08/25/2010 Hx Tablets 250mg 1Pack as per Pawel Hinojosa Z-Flip - directions Nevaeh, 11/18/2010 MAmol Symbicort 07/20/2010 Hx Aerosol 160-4.5mcg 3units Not Using2 Zuly - /Act puff twice a Roberto, 05/30/2017 day Vinicius Combivent 05/25/2010 Hx 3MonthSu 2 puffs qid Pawel Hinojosa Inhaler - p Nevaeh, 08/25/2010 Vinicius Zithromax 10/22/2009 Hx Tablets 250mg 1Pack as per Pawel Isas-Flip - directions Nevaeh, 05/25/2010 MAmol Albuterol 05/30/2009 Hx Nebulizer 0.63mg/3ML 100units 1 po tid Pawel Hinojosa Sulfate - Nevaeh, 10/22/2009 Vinicius Furosemide 02/27/2009 Hx Tablets 20mg 7tabs 1 po qam Pawel Herring, 11/26/2014 MAmol Atrovent 11/20/2008 Hx Aerosol 17mcg/Act 3units 2 puffs qid Pawel Hinojosa HFA - Nevaeh, 05/25/2010 MAmol Benzonatate 10/21/2008 Hx Capsules 100mg 30caps 1-2 up to tid Pawel guyn cough Nevaeh, 11/20/2008 Vinicius Sotalol HCL 06/05/2008 Hx Tablets 80mg 180tabs 1 tab by Rocael Puentes - mouth twice a Brand, 07/28/2015 day MAmol Symbicort 06/05/2008 Hx Aerosol 160-4.5 3units 2 puff bid Pawel Herring, 07/20/2010 Chad.DDennis Proair HFA 03/29/2008 Hx Aerosol 108mcg/Act 3units 2 Puffs qid Pawel Herring, 12/15/2011 Vinicius Zithromax 12/13/2007 Hx Tablets 250mg 1Pack as per Pawel Hinojosa Z-Flip - directions Nevaeh, 01/10/2008 Vinicius Zestoretic 11/22/2007 [...] Influenza Virus 04/17/ Administered Injection Unknown Vaccine 2012 Immunizations CPT Code Status Date Vaccine Lot # [id number] Given 04/15/2017 Influenza Virus Vaccine, Quadrivalent, Split, Preservative Free 11450 Given 04/21/2016 Fluzone High Dose Q2039 Given 04/21/2015 Flu Vaccine NOS 12622 Given 04/30/2014 Pneumococcal Conjugate Vaccine 13 Valent For [id number] Intramuscular Use 82796 Given 07/18/2013 Zoster (Zostavax) 99522 Given 12/04/2012 Tdap - Tetanus/Diptheria/Acellular Pertussis [id number] Q2038 Given 04/24/2012 Fluzone Vaccine [id number] Q2038 Given 04/21/2011 Fluzone Vaccine [id number] 39751 Given 07/25/2009 Influenza Virus Vaccine, Pandemic Formulation [id number] 61992 Given 07/25/2009 Administration Swine Flu Shot 62781 Given 04/12/2008 Influenza Virus 3Yrs & Over 21408 Given 04/12/2008 Influenza Virus 3Yrs & Over 93198 Given 04/25/2007 Influenza Virus 3Yrs & Over 46189 Given 11/06/2002 Td (History By Patient) 21763 Given 10/22/2002 Pneumovax (History By Patient) Vital Signs Date Vital Result Comment 10/28/2017 Height 68.25 inches 5'8.25" Heart Rate [...] Test Date Test Result H/L Range Note Urine Microalbumin Random 08/01/2017 Ur Microalbumin (mg/L) 30.3 mg/L 1 Urine Creatinine 88.50 mg/dL 1 Urine Microalbumin/Creatinine [...] Non- 114.2 >60 Egfr 146.8 >60 13 Laboratory test 09/14/2016 Hemoglobin A1c 9.0 % High Less than 6.0 14 finding (Glyco HGB) Basic Metabolic Panel 09/14/2016 Sodium 141 mmol/L 133-145 Potassium 3.8 mmol/L 3.5-5.0 Chloride 103 mmol/L 101-111 Co2 Carbon Dioxide 32 mmol/L 22-32 Anion Gap 6 mmol/L 2-11 Glucose 252 mg/dL High 70-100 Blood Urea Nitrogen 15 mg/dL 6-24 Creatinine 0.68 mg/dL 0.67-1.17 BUN/Creatinine Ratio 22.1 High 8-20 Calcium 9.2 mg/dL 8.6-10.3 Egfr Non- 110.6 >60 Egfr 142.2 >60 15 Urine Microalbumin Random 09/14/2016 Urine Creatinine 145.57 mg/dL Ur Microalbumin (mg/L) 92.7 mg/L Urine Microalbumin/Creatinine [...] Color Chelle Urine Appearance Clear Urine Specific [place] 1.020 1.010-1.030 Urine pH 6.0 5-9 Urine [...] Sensitivities BELOW Ua Routine 07/15/2015 Ua Specific [place] 1.010 Ua PH 5 Ua Color chelle Ua Appera cloudy Ua WBC large Ua Protein trace Ua Glucose negative Ua Ketones negative Ua Bilirubin negative Ua Urobilinogen normal Ua Nitrite positive Ua Occult Blood large ++ Ua Routine 06/30/2015 Ua Specific [place] 1.015 Ua PH 7 Ua Color chelle Ua Appera clear Ua WBC negative Ua Protein negative Ua Glucose negative Ua Ketones negative Ua Bilirubin negative Ua Urobilinogen normal Ua Nitrite negative Ua Occult Blood negative Laboratory test 06/23/2015 Urine Culture And SEE RESULT 47 finding Sensitivities BELOW Laboratory test 02/01/2015 Blood Culture SEE RESULT 48, 49 finding BELOW CBC Auto Diff 02/01/2015 White Blood Count [...] Blood Cells % 0.1 Comp Metabolic Panel 02/01/2015 Sodium 134 mmol/L [...] Egfr Non- 116.8 >60 Egfr 150.1 >60 50 Laboratory test finding 02/01/2015 Magnesium 1.8 mg/dL Low 1.9-2.7 Creatine Kinase(CK) 32 U/L 10-223 Troponin-I (TnI) 0.00 ng/mL <0.03 51 CKMB 02/01/2015 CKMB ng/mL 1.8 ng/mL 0.6-6.3 Laboratory test finding 02/01/2015 B-Type Natriuretic 237 pg/mL High 52 Peptide BNP Lactic Acid 1.7 mmol/L 0.5-2.2 Blood Culture SEE RESULT BELOW 53 Laboratory test finding 11/27/2014 Hemoglobin A1c (Glyco 6.6 % High Less than 6.0 54 HGB) B-Type Natriuretic Peptide BNP 224 pg/mL 55 Lipid Profile (Trig/Chol/HDL) 11/27/2014 Triglycerides 57 mg/dL 56 Cholesterol 137 mg/dL 57 HDL Cholesterol 53.1 mg/dL 58 LDL Cholesterol 73 mg/dL 59 Comp Metabolic Panel 11/27/2014 Sodium 138 mmol/L [...] Egfr Non- 107.2 >60 Egfr 137.8 >60 60 Laboratory test finding 01/01/2014 Hemoglobin A1c 5.9 5-7 Comp Metabolic Panel 01/01/2014 Sodium 135 mmol/L [...] 87.1 >60 61 Egfr 112.0 >60 61, 62 Lipid Profile (Trig/Chol/HDL) 01/01/2014 Triglycerides 54 mg/dL 61, 63 Cholesterol 150 mg/dL 61, 64 HDL Cholesterol 63.6 mg/dL 61, 65 LDL Cholesterol 76 mg/dL 61, 66 Clotest 03/20/2013 Clotest (SEE NOTE) 67 Comp Metabolic Panel 02/11/2013 Sodium 138 mmol/L [...] Egfr Non- 107.7 >60 Egfr 138.5 >60 68 CBC Auto Diff 02/11/2013 White Blood [...] Blood Cells % 0.1 Laboratory test finding 02/11/2013 Troponin I 0.01 ng/mL 0-0.06 69 Laboratory test finding 12/04/2012 Hemoglobin A1c 6.3 5-7 Comp Metabolic Panel 12/01/2012 Sodium 142 mmol/L [...] Egfr Non- 80.6 >60 Egfr 103.6 >60 70 Lipid Profile (Trig/Chol/HDL) 12/01/2012 Triglycerides 58 mg/dL 40-200 Cholesterol 158 mg/dL Less than 200 HDL Cholesterol 55 mg/dL 40-60 71 Cholesterol/HDL Ratio 2.9 Average 1-4.44 LDL Cholesterol 91.4 mg/dL Less Than 100 72 Laboratory test 03/10/2012 Throat Culture <SEE 73 finding Full NOTE> Arterial Blood Gas 12/27/2011 PH 7.43 7.35-7.45 Pco2 40 mmHg 35-45 Po2 70 mmHg Low 80-100 O2 Saturation 94.0 % Low 95-98 Base Excess 2.0 -2.0-2.0 74 Bicarbonate 26.2 mmol/L 19-31 Fio2 ROOM AIR Laboratory test finding 12/03/2011 Hemoglobin A1c 5.4 5-7 CBC Auto Diff 11/29/2011 White Blood Count [...] Eosinophils 0.2 0-0.6 Abs Basophils 0 0-0.2 Lipid Profile (Trig/Chol/HDL) 11/29/2011 Triglyceride 63 mg/dL 40-200 Cholesterol 169 mg/dL Less Than 200 75 High Density Lipoprotein 57 mg/dL 40-60 76 Cholesterol/HDL Ratio 2.96 AVERAGE 1-4.97 Low Density Lipoprotein 99 mg/dL Less Than 100 77 Comp Metabolic Panel 11/29/2011 Sodium 138 mmol/L 135-145 Potassium 3.9 mmol/L 3.5-5.0 Chloride 103 mmol/L 101-111 Co2 (Carbon Dioxide) 33.0 mmol/L High 22-32 Anion Gap 2.0 mmol/L 2-11 78 Glucose 141 mg/dL High 70-100 BUN 17 mg/dL 6-24 Creatinine 0.9 mg/dL 0.50-1.40 One Over Creatinine 1.11 BUN/Creatinine Ratio 18.9 8-20 Calcium 9.2 mg/dL 8.1-9.9 Total Protein 6.1 GM/DL Low 6.2-8.1 Albumin 3.9 GM/DL 3.2-5.2 Globulin 2.2 GM/DL 2-4 Albumin/Globulin Ratio 1.8 1-3 Bilirubin Total 1.2 mg/dL 0.4-1.5 79 Alkaline Phosphatase 50 U/L 39-117 Alt (SGPT) 17 U/L 17-63 Ast (Sgot) 18 U/L 12-42 eGFR Non- 80.8 > 60 eGFR 103.9 > [address] Herring's Lab Panel 11/29/2011 TSH 0.73 MIU/ML 0.34-5.60 Laboratory test finding 05/26/2011 Hemoglobin A1c 6.1 5-7 Laboratory test finding 11/23/2010 Hemoglobin A1c 6.1 5-7 CBC Auto Diff 11/17/2010 White Blood Count [...] Lab Panel 11/17/2010 TSH 0.77 MIU/ML 0.34-5.60 Comp Metabolic Panel 11/17/2010 Sodium 142 mmol/L [...] Lipoprotein 98 mg/dL Less Than [address] Herring's Lab Panel 05/25/2010 TSH 0.56 [...] 6.4 % High Less Than 6.0 95 Laboratory test finding 11/18/2009 Ast (Sgot) 24 U/L 12-42 Alt (SGPT) 20 U/L 17-63 Lipid Profile (Trig/Chol/HDL) 11/18/2009 Triglyceride 46 mg/dL 40-200 Cholesterol 168 mg/dL Less Than 200 96 High Density Lipoprotein 57 mg/dL 40-60 97 Cholesterol/HDL Ratio 2.95 AVERAGE 1-4.97 Low Density Lipoprotein 102 mg/dL High Less Than [address] Herring's Lab Panel 06/04/2009 TSH 0.69 [...] 99 eGFR 104.7 > 60 99, 104 Lipid Profile (Trig/Chol/HDL) 06/04/2009 Triglyceride 62 mg/dL 40-200 99 Cholesterol 150 mg/dL Less Than 200 99, 105 High Density Lipoprotein 48 mg/dL 40-60 99, 106 Cholesterol/HDL Ratio 3.13 AVERAGE 1-4.97 99 Low Density Lipoprotein 90 mg/dL Less Than 100 99, 107 CBC With Electronic Diff 06/04/2009 White Blood [...] 0-0.6 99 Abs Basophils 0 0-0.2 99 Laboratory test finding 06/04/2009 PSA Screening 2.53 NG/ML 0-4 99, 108 Laboratory test finding 02/20/2009 BNP [...] test finding 02/20/2009 TSH 0.58 MIU/ML 0.34-5.60 Basic Metabolic Panel 05/02/2008 Sodium 141 mmol/L 135-145 Potassium 5.4 mmol/L High 3.5-5.0 Chloride 107 mmol/L 101-111 Co2 (Carbon Dioxide) 30.8 mmol/L 22-32 Anion Gap 3.2 mmol/L 2-11 114 BUN 16 mg/dL 6-24 Creatinine 0.89 mg/dL 0.5-1.4 One Over Creatinine 1.10 BUN/Creatinine Ratio 18.0 8-20 Calcium 9.5 mg/dL 8.1-9.9 115 Glucose 104 mg/dL High 70-100 116 Laboratory test finding 05/02/2008 PTT (Aptt) 23.0 20.1-28.2 117 Protime 05/02/2008 Protime 12.5 10.9-13.3 Inr 1.07 118 CBC With Electronic Diff 05/02/2008 White Blood [...] Eosinophils 0.2 0-0.6 Abs Basophils 0 0-0.2 Lipid Profile (Trig/Chol/HDL) 11/20/2007 Triglyceride 93 mg/dL [...] 128 TSH 0.54 MIU/ML 0.34-5.60 124 1 [id number] Normal Range 180 to 914 Indeterminate [...] in selective patients <6.0%. Please refer to [place] [employer] diabetic care guidelines for further information. 11 [id number] 12 SEE RESULT BELOW Name: AIDAN PEARL : [address]: Breana Fuller Acct: [id number] Unit: [id number] AGE: 86 Location: [facility] Re12/27/16 SEX: M Status: DEP ER SPEC: [id number] MAYUR: 12/27/[address]: Breana Currie DO REQ: [id number] RECD: 12/27/16 STATUS: NIKKO BACK DR: Pawel Herring III, MD _ [facility]: Culture Stain COMMENTS: [id number] Procedure Result Reported Site Wound/Misc Gram Stain Final 12/27/16- 1149 ML 1+ Neutrophils No Organisms Seen Wound/Misc Culture Final 12/29/16- 0850 ML No Growth Day 2 * ML - MAIN LAB ([facility]) . END OF REPORT * ML=Testing performed at Main Lab DEPARTMENT OF PATHOLOGY, [address] [place] [address] Harlan Montelongo M.D. Director [facility] # [id number] 13 Because ethnic data is not always [...] 5 Kidney failure <15 (or dialysis) 14 Therapeutic target for the treatment of diabetes Mellitus patients is <7% HBA1C, and in selective patients <6.0%.Please refer to [place] [employer] Diabetic care guidelines for further information. 15 Because ethnic data is not always readily [...] 15-29 5 Kidney failure <15 (or dialysis) 16 Because ethnic data is not always [...] and in selective patients <6.0%.Please refer to [place] [employer] Diabetic care guidelines for further [...] and in selective patients <6.0%.Please refer to [place] [employer] Diabetic care guidelines for further [...] Reference ranges based on room air. 33 [facility] Severe Sepsis and Septic Shock Management Bundle [...] 0.03 ng/mL Not supportive of diagnosis of GA 0.03 - 0.50 ng/mL Indeterminate: suggest serial studies if clinically indicated. Greater than 0.5 ng/mL Consistent with diagnosis of GA 36 >100 to <200 pg/mL: likely compensated congestive heart failure (CHF) 200 to 400 pg/mL: likely moderate CHF >400 pg/mL: likely moderate to severe CHF 37 *Ascorbic acid is present which may interfere with detection of blood. 38 SEE RESULT BELOW Name: AIDAN PEARL : [address]: Nereida Diego DO Acct: [id number] Unit: [id number] AGE: 84 Location: [place] [address] Re07/21/15 SEX: M Status: ADM IN SPEC: [id number] MAYUR: 07/21/[address]: Clem Cortes MD REQ: [id number] RECD: 07/21/15 STATUS: NIKKO BACK DR: [facility] Pawel Herring III, MD _ SOURCE: BLOOD,VENO SPDESC: ORDERED: Blood Cult Procedure Result Reported Site Pediatric Blood Culture Final 07/26/15- 2042 ML No Growth Day 5 * ML - MAIN LAB ([facility]) . END OF REPORT * ML=Testing performed at Main Lab DEPARTMENT OF PATHOLOGY, [address] [place] [address] Harlan Montelongo M.D. Director [facility] # [id number] 39 Reference ranges based on room air. 40 [facility] Severe Sepsis and Septic Shock Management Bundle [...] 0.03 ng/mL Not supportive of diagnosis of GA 0.03 - 0.50 ng/mL Indeterminate: suggest serial studies if clinically indicated. Greater than 0.5 ng/mL Consistent with diagnosis of GA 43 >100 to <200 pg/mL: likely compensated congestive heart failure (CHF) 200 to 400 pg/mL: likely moderate CHF >400 pg/mL: likely moderate to severe CHF 44 SEE RESULT BELOW Name: AIDAN PEARL : [address]: Rico Huddleston MD Acct: [id number] Unit: [id number] AGE: 84 Location: ED Re07/17/15 SEX: M Status: DEP ER SPEC: [id number] MAYUR: 07/17/15-[address] [facility] DR: Rico Huddleston MD REQ: [id number] RECD: 07/17/15 STATUS: NIKKO BACK DR: Pawel Herring III, MD _ SOURCE: BLOOD,VENO SPDESC: ORDERED: Blood Cult Procedure Result Reported Site Aerobic Culture Bottle Final 07/22/15- 1623 ML No Growth Day 5 Anaerobic Culture Bottle Final 07/22/15- 1623 ML No Growth Day 5 * ML - [facility] ([facility]) . END OF REPORT * ML=Testing performed at Main Lab DEPARTMENT OF PATHOLOGY, [address] [place] [address] Harlan Montelongo M.D. Director [facility] # [id number] 45 Serum levels of PSA measured using [...] [address]: James Quinteros NP Acct: [id number] Unit: [id number] AGE: 84 Location: [facility] Re07/15/15 SEX: M Status: REG REF SPEC: [id number] MAYUR: 07/15/15-1025 [facility] [address]: James Quinteros NP REQ: [id number] RECD: 07/15/15 STATUS: COMP _ SOURCE: URINE SPDESC: ORDERED: Urine Culture Procedure Result Reported Site Urine Culture Final 07/18/15- 839 ML Organism 1 STAPHYLOCOCCUS AUREUS [place] Count >100,000 (Many) CFU/ML 1. STAPHYLOCOCCUS AUREUS [...] These antibiotics are not available in the [facility] Formulary Contact the Microbiology Department for any additional antibiotic reporting. * ML - MAIN LAB ([facility]) . END OF REPORT * ML=Testing performed at Main Lab DEPARTMENT OF PATHOLOGY, [address] [place] [address] Harlan Montelongo M.D. Director [facility] # [id number] 47 SEE RESULT BELOW Name: AIDAN PEARL : [address]: Jack Amin MD Acct: [id number] Unit: [id number] AGE: 84 Location: [facility] Re06/23/15 SEX: M Status: DEP ER SPEC: [id number] MAYUR: 06/23/15 [facility] [address]: Jack Amin MD REQ: [id number] RECD: 06/23/15 STATUS: NIKKO BACK DR: Pawel Herring III, MD _ SOURCE: URINE [facility]: ORDERED: Urine Culture Procedure Result Reported Site Urine Culture Final 06/25/15- 0759 ML Organism 1 STAPHYLOCOCCUS AUREUS [place] Count >100,000 (Many) CFU/ML 1. STAPHYLOCOCCUS AUREUS [...] These antibiotics are not available in the [facility] Formulary Contact the Microbiology Department for any additional antibiotic reporting. * ML - MAIN LAB ([facility]) . END OF REPORT * ML=Testing performed at Main Lab DEPARTMENT OF PATHOLOGY, [address] [place] [address] Harlan Montelongo M.D. Director [facility] # [id number] 48 Patient is On Antibiotics? NO 49 SEE RESULT BELOW Name: DAEAIDAN : [address]: Hammad Butler DO Acct: [id number] Unit: [id number] AGE: 84 Location: ED Re02/01/15 SEX: M Status: DEP ER SPEC: [id number] MAYUR: 02/01/15-1949 [facility] DR: Hammad Butler DO REQ: [id number] RECD: 02/01/15 STATUS: NIKKO BACK DR: Pawel Herring III, MD _ SOURCE: BLOOD,VENO SPDESC: ORDERED: Blood Cult COMMENTS: Patient is On Antibiotics? NO Verbal to [id number] by [id number] at 1541 on 02/02/15. Results read back accurately. Procedure Result Verified Site Aerobic Culture Bottle Final 02/05/15- 1230 ML Aerobic Bottle Gram Stain Gram Variable Coccobacilli Organism 1 ACINETOBACTER LWOFFI Organism 2 MICROCOCCUS SPECIES 1. ACINETOBACTER LWOFFI M.I.C. RX --------- ------ Gentamicin <=1 S Contact the Microbiology Department for any additional antibiotic reporting. Anaerobic Culture Bottle Final 02/06/15- 8 ML No Growth Day 5 * ML - MAIN LAB ([facility]) . END OF REPORT * ML=Testing performed at Main Lab DEPARTMENT OF PATHOLOGY, [address] [place] [address] Harlan Montelongo M.D. Director [facility] # [id number] 50 Because ethnic data is not always readily [...] 15-29 5 Kidney failure <15 (or dialysis) 51 Reference Range and Interpretation: TnI (ng/mL) Interpretation Less Than 0.03 ng/mL Not supportive of diagnosis of GA 0.03 - 0.50 ng/mL Indeterminate: suggest serial studies if clinically indicated. Greater than 0.5 ng/mL Consistent with diagnosis of GA 52 >100 to <200 pg/mL: likely compensated congestive heart failure (CHF) 200 to 400 pg/mL: likely moderate CHF >400 pg/mL: likely moderate to severe CHF 53 SEE RESULT BELOW Name: AIDAN PEARL : [address]: Hammad Butler DO Acct: [id number] Unit: [id number] AGE: 84 Location: ED Re02/01/15 SEX: M Status: DEP ER SPEC: [id number] MAYUR: 02/01/15 DR: Hammad Butler DO REQ: [id number] RECD: 02/01/15 STATUS: RES OTHR DR: Pawel Herring III, MD _ SOURCE: BLOOD,VENO SPDESC: ORDERED: Blood Cult COMMENTS: Patient is On Antibiotics? NO Procedure Result Verified Site Aerobic Culture Bottle Preliminary 02/02/15- 153 ML Aerobic Bottle Gram Stain Gram Variable Coccobacilli Anaerobic Culture Bottle PENDING * ML - MAIN LAB ([facility]) . END OF REPORT * ML=Testing performed at Main Lab DEPARTMENT OF PATHOLOGY, [address] [place] [address] Harlan Montelongo M.D. Director [facility] # [id number] 54 Therapeutic target for the treatment of diabetes Mellitus patients is <7% HBA1C, and in selective patients <6.0%.Please refer to [place] [employer] Diabetic care guidelines for further information. 55 >100 to <200 pg/mL: likely compensated congestive heart failure (CHF) 200 to 400 pg/mL: likely moderate CHF >400 pg/mL: likely moderate to severe CHF [facility] 56 Desirable <150 Borderline high 150-199 High 200-499 Very High >500 57 Desirable <200 Borderline high 200-239 High >239 58 Low <40 Desirable: 40-60 High: >60 59 Desirable: <100 mg/dL Near Optimal: 100-129 mg/dL Borderline High: 130-159 mg/dL High: 160-189 mg/dL Very High: >189 mg/dL 60 Because ethnic data is not always readily [...] 15-29 5 Kidney failure <15 (or dialysis) 61 PT IS FASTING 62 Because ethnic data is not always readily [...] 15-29 5 Kidney failure <15 (or dialysis) 63 Desirable <150 Borderline high 150-199 High 200-499 Very High >500 64 Desirable <200 Borderline high 200-239 High >239 65 Low <40 Desirable: 40-60 High: >60 66 Desirable <100 Near Optimal 100-129 Borderline high 130-159 High 160-189 Very High >189 67 RUN DATE: 03/21/13 [facility] LAB LIVE PAGE 1 RUN TIME: [address] [place] [address] Specimen Inquiry Name: AIDAN PEARL : [address]: Peter Ross MD Acct: [id number] Unit: [id number] AGE: 82 Location: ENDO Re03/20/13 SEX: M Status: REG REF SPEC: [id number] MAYUR: 03/20/13-1114 [facility] [address]: Peter Ross MD REQ: [id number] RECD: 03/20/13114 STATUS: NIKKO BACK DR: Pawel Herring III, MD _ SOURCE: [facility]: ORDERED: Clotest Procedure Result Verified Site Clotest Final 03/21/13- 809 ML Clotest Negative END OF REPORT * ML=Testing performed at Main Lab DEPARTMENT OF PATHOLOGY, [address] [place] [address] Harlan Montelongo M.D. Director [facility] Permit #[id number] 68 Because ethnic data is not always readily [...] 15-29 5 Kidney failure <15 (or dialysis) 69 Reference Range and Interpretation: TnI (ng/mL) Interpretation Less Than 0.06 ng/mL Not supportive of diagnosis of GA 0.06 - 0.50 ng/mL Indeterminate: suggest serial studies if clinically indicated. Greater than 0.5 ng/mL Consistent with diagnosis of GA 70 Because ethnic data is not always readily [...] 15-29 5 Kidney failure <15 (or dialysis) 71 HDL Interpretation: Undesirable: High Risk: Less than 40 mg/dL Desirable: Low Risk: Greater than 60 mg/dL 72 LDL Interpretation: Low Risk Optimal Level: LDL Less than 100 mg/dL Near or Above Optimal: LDL 100-129 mg/dL Borderline High Risk: LDL 130-159 mg/dL High Risk: LDL 160-189 mg/dL Very High Risk: LDL Greater than 189 mg/dL 73 RUN DATE: 03/12/12 [facility] NMI LIVE PAGE 1 RUN TIME: 1238 Specimen Inquiry RUN USER: INTERFACE Name: AIDAN PEARL Status: REG REF Re03/10/12 Age/Sex: 81/M Unit#: [id number] Location: [facility] : 28 SPEC #: 12:[id number] MAYUR: 03/10/12 STATUS: COMP REQ #: [id number] RECD: 03/10/12-[address]: Sri Ppoe NP SOURCE: THROAT ENTR: 03/10/12-[address]: COOPERC: ORDERED: THROAT CULTURE QUERIES: MEDENT REQUISITION # [id number] ACT WKST: B 03/12/12 #1 Procedure Result Verified Site > THROAT CULTURE FULL Final -1238 ML Organism 1 YEAST QUANTITY MANY Organism 2 NORMAL CANDI QUANTITY MANY FULL THROAT CULTURES ARE CLINICALLY INDICATED TO DETECT THE PRESENCE OF GROUP A STREP, ARCANOBACTERIUM AND YEAST. - [facility] Permit #[id number] [address] [place] [address] DEPARTMENT OF PATHOLOGY, [address] [place] [address] [facility] Permit #[id number] Harlan Montelongo M.D. Director Burce Jarrett M.D. Staple Laster 74 REFERENCE RANGES BASED ON ROOM AIR 75 CHOLESTEROL INTERPRETATION: Desirable: Less than 200 MG/DL Borderline-High Risk: 200-239 MG/DL High-Risk: 240 MG/DL and over 76 HDL INTERPRETATION: Undesirable: High Risk: Less than 40 MG/DL Desirable: Low Risk: Greater than 60 MG/DL 77 LDL INTERPRETATION: Low Risk Optimal Level: LDL Less than 100 MG/DL Near or Above Optimal: LDL 100-129 MG/DL Borderline High Risk: LDL 130-159 MG/DL High Risk: LDL 160-189 MG/DL Very High Risk: LDL Greater than 189 MG/DL 78 Anion gap measurement may be of limited value in the presence of any alkalosis, especially in a combined acid base disorder. . 79 A metabolite of Naproxen, O-desmethylnaproxen, has been shown to interfere with the Jendrassik-Bella method for measuring total bilirubin. Samples from patients who have taken Naproxen have shown spurious elevation in total bilirubin levels. 80 Because ethnic data is not always readily [...] 15-29 5 Kidney failure <15 (or dialysis) 81 Anion gap measurement may be of limited value in the presence of any alkalosis, especially in a combined acid base disorder. . 82 A metabolite of Naproxen, O-desmethylnaproxen, has been shown to interfere with the Jendrassik-Bathgate method for measuring total bilirubin. Samples from [...] change was based on recommendations from the [place] [employer]. 89 A metabolite of Naproxen, [...] IN SELECTIVE PATIENTS <6.0%. PLEASE REFER TO [employer] DIABETIC CARE GUIDELINES FOR FURTHER [...] change was based on recommendations from the [place] [employer]. 102 Please note change in reference range effective 07 . 103 A metabolite of Naproxen, O-desmethylnaproxen, has been shown to interfere with the Jendrassik-Bathgate method for measuring total bilirubin. Samples from [...] 5 Kidney failure <15 (or dialysis) 105 CHOLESTEROL INTERPRETATION: Desirable: Less than 200 MG/DL Borderline-High Risk: 200-239 MG/DL High-Risk: 240 MG/DL and over 106 HDL INTERPRETATION: Undesirable: High Risk: Less than 40 MG/DL Desirable: Low Risk: Greater than 60 MG/DL 107 LDL INTERPRETATION: Low Risk Optimal Level: LDL Less than 100 MG/DL Near or Above Optimal: LDL 100-129 MG/DL Borderline High Risk: LDL 130-159 MG/DL High Risk: LDL 160-189 MG/DL Very High Risk: LDL Greater than 189 MG/DL 108 * SERUM LEVELS OF PSA MEASURED USING THE CAROLINE [employer] ACCESS HYBRITECH IMMUNOASSAY SHOULD NOT BE INTERPRETED ABSOLUTE EVIDENCE OF THE PRESENCE OR ABSENCE OF DISEASE. THE PSA VALUE SHOULD BE USED IN CONJUNCTION WITH OTHER PERTINENT CLINICAL DIAGNOSTIC PROCEDURES. 109 Anion gap measurement may be of limited value in the presence of any alkalosis, especially in a combined acid base disorder. . 110 Note change in reference range as of 03/07/08. The change was based on recommendations from the [place] [employer]. 111 Please note change in reference range effective 07 . 112 A metabolite of Naproxen, O-desmethylnaproxen, has been shown to interfere with the Jendrassik-Bathgate method for measuring total bilirubin. Samples from [...] 5 Kidney failure <15 (or dialysis) 114 Anion gap measurement may be of limited value in the presence of any alkalosis, especially in a combined acid base disorder. . 115 Please note change in reference range effective 07 . 116 Note change in reference range as of 03/07/08. The change was based on recommendations from the [place] [employer]. 117 PLEASE NOTE NEW REFERENCE RANGE EFFECTIVE 07. 118 AKHIL VALUE=2.01 ( OF 06/23/07 Recommended INR for Patients on Oral Anticoagulants Prophylaxis 2.0 - 3.0 Treatment of thrombosis 2.0 - 3.0 Prevention of embolism 2.0 - 3.0 Prevention of embolism from prosthetic heart valves 2.5 - 3.5 119 CHOLESTEROL INTERPRETATION: Desirable: Less than 200 [...] SERUM LEVELS OF PSA MEASURED USING THE inmobly ACCESS HYBRITECH IMMUNOASSAY SHOULD NOT BE INTERPRETED ABSOLUTE EVIDENCE OF THE PRESENCE OR ABSENCE OF DISEASE. THE PSA VALUE SHOULD BE USED IN CONJUNCTION WITH OTHER PERTINENT CLINICAL DIAGNOSTIC PROCEDURES. Procedures Date CPT Code Description Status 10/28/201772994 Inject/Drain Joint/Bursa Major Completed 10/28/201752557 Inject/Drain Joint/Bursa Major Completed 07/29/201765810 Inject/Drain Joint/Bursa Major Completed 04/27/201719993 Inject/Drain Joint/Bursa Major Completed 01/24/201744958 Inject/Drain Joint/Bursa Major Completed 01/12/2017 81317 Removal Devitalization Tissue Wound Less Than Equal 20 Completed Square CM 01/05/2017 79080 Removal Devitalization Tissue Wound Less Than Equal 20 Completed Square CM 12/29/2016 77992 Removal Devitalization Tissue Wound Less Than Equal 20 Completed Square 10/27/201613231 Inject/Drain Joint/Bursa Major Completed 10/22/2016 06941 EKG Tracing & Interpretation Completed 07/28/201630305 Inject/Drain Joint/Bursa Major Completed 03/29/201687829 Inject/Drain Joint/Bursa Major Completed 12/26/201594436 Inject/Drain Joint/Bursa Major Completed 10/23/2015 83885 EKG Tracing & Interpretation Completed 09/25/2015 46912 Holter Monitoring 24 HR New Completed 09/24/2015 27931 Holter Monitoring 24 HR New Completed 09/24/201541755 Inject/Drain Joint/Bursa Major Completed 09/04/2015 03003 EKG Tracing & Interpretation Completed 09/02/2015 66019 Holter Monitoring 24 HR New Completed 09/01/2015 37700 Holter Monitoring 24 HR New Completed 08/03/2015 40660 EKG, Interpretation Only Completed 08/03/201590244 Inject/Drain Joint/Bursa Major Completed 07/22/2015 97417 ECHO Transthorasic Realtime 2D W Doppler & Color Completed Flow [facility] 07/22/2015 83142 ECHO Transthorasic Realtime 2D W Doppler & Color Completed Flow [facility]osp 06/16/201559592 Inject/Drain Joint/Bursa Major Completed 03/31/2015 32360 Inject/Drain Joint/Bursa Major Completed 11/04/2014 01283 Pulmonary Stress Test Simple Completed 11/04/2014 82900 Plethysmography Determination Lung Volumes & Per Completed Airway Resist 11/04/2014 12584 Diffusing Capacity Completed 03/01/2014 62414 ECHO Transthoracic, Real-Time 2D With Doppler And Color Completed Flow 02/28/2014 61606 EKG Tracing & Interpretation Completed 01/03/2013 30920 EKG Tracing & Interpretation Completed 12/21/2011 32967 Holter Monitor Review (24 hr)dr review & interp Completed only 12/15/2011 74255 Noninvasive Ear Or Pulse Oximetry For Oxygen Saturation Completed 08/25/2010 18731 Pulse Oximetry-Mutl Determ Completed 08/25/2010 89430 Pulmonary Function><Bronchodilator Completed 05/25/2010 04272 Noninvasive Ear Or Pulse Oximetry For Oxygen Saturation Completed 05/25/2010 66473 EKG Tracing & Interpretation Completed 10/22/2009 98942 Noninvasive Ear Or Pulse Oximetry For Oxygen Saturation Completed 02/20/2009 55524 EKG Tracing & Interpretation Completed 01/10/2008 43788 EKG Tracing & Interpretation Completed 01/10/2008 39503 Pulse Oximetry-Mutl Determ Completed 12/13/2007 46853 Pulmonary Function><Bronchodilator Completed 12/13/2007 79188 EKG Tracing & Interpretation Completed 07/24/2007 02251 Treadmill Interp/Report Only Completed 07/24/2007 39202 Treadmill Interp/Report Only Completed 07/24/2007 19123 Stress Test Supervsn W/Out I/R Completed 07/19/2007 19033 Pulse Oximetry-Mutl Determ Completed 07/19/2007 38073 EKG Tracing & Interpretation Completed 07/19/2007 98022 EKG Tracing & Interpretation Completed 03/01/2007 29999 EKG Tracing & Interpretation Completed 03/01/2007 51045 EKG Tracing & Interpretation Completed 03/06/2001 Colonoscopy Completed Encounters Type Date Location Provider CPT E/M Dx Office Visit 05/30/2017 2:40p [facility] Internal Medicine Pawel Herring, 97797 J20.9 Lowell Harris M.D. Office Visit 04/28/2017 10:00a [facility] Internal Medicine Pawel Herring, 49092 R30.0 - Steven Colvin G31.84 I10 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 Office Visit 04/06/2017 9:00a [place] [address] S41.112A At [facility] Office Visit 03/30/2017 10:15a [place] [address] S41.112A At [facility] Office Visit 03/23/2017 9:30a [place] [address] S41.112A At [facility] W06.xxxA Office Visit 01/26/2017 9:00a [facility] Vinh Whitman, 30398 S81.812A At [facility] MD Office Visit 12/29/2016 9:15a [facility] Vinh Whitman, 32902 S81.812A At [facility] MD Office Visit 12/24/2016 9:40a [facility] Internal Pawel Herring, 94623 E11.9 Medicine - Vinicius Harris I10 I48.2 J44.9 Office Visit 12/08/2016 11:00a [facility] Internal Medicine Pawel Herring, 47186 S81.802A - Steven Colvin Office Visit 10/22/2016 10:00a [facility] Rocael Ayala, 63297 I48.2 Cristina Colvin I10 I25.10 Office Visit 09/23/2016 10:40a [facility] Internal Medicine Pawel Herring, 87083 E11.9 - Steven Colvin Office Visit 05/24/2016 10:00a [facility] Internal Medicine Pawel Herring, 48460 E11.9 - Steven Colvin I10 I48.2 J44.9 Office Visit 02/18/2016 9:00a [facility] Internal Medicine Lowell Herring, 81834 E11.9 Sudhakar Colvin Office Visit 10/23/2015 10:45a [facility] Rocael Ayala, 85472 I10 Cristina Colvin I48.2 Office Visit 10/22/2015 10:00a [facility] Internal Medicine Pawel Herring, 78771 R60.0 - Sudhakar Colvin I10 I48.2 J44.9 Office Visit 09/30/2015 11:00a [facility] Internal Medicine Pawel Herring, 10507 L03.114 - Sudhakar Colvin R60.0 I48.91 Office Visit 09/19/2015 9:40a [facility] Internal Medicine Pawel Herring, 82876 R60.0 - Sudhakar Colvin I48.91 Office Visit 09/04/2015 12:00p [facility] Of Rocael Ayala, 09534 R94.31 Cristina Colvin I48.91 Office Visit 08/21/2015 3:20p [facility] Internal Medicine Pawel Herring, 72862 I48.91 - Sudhakar Colvin R60.0 J44.1 Office Visit 08/12/2015 10:00a [facility] Internal Medicine Pawel Herring, 47303 I48.91 - Sudhakar Colvin J44.1 R73.01 R10.84 I10 Office Visit 08/05/2015 11:17a [facility], 51883 R65.10 Hospitalists Vinicius J43.1 E86.1 R53.1 Office Visit 08/04/2015 11:08a [facility], 76617 R65.10 Hospitalists Vinicius J43.1 E86.1 R53.1 Office Visit 08/03/2015 11:07a [facility], 23814 R65.10 Hospitalists Vinicius J43.1 E86.1 R53.1 Office Visit 08/03/2015 7:00a [place] [address] M25.061 Of [facility] Office Visit 08/01/2015 [facility] 74510 R53.1 Assoc, Beena GARCIA M.D. E86.1 R65.10 J43.1 Office Visit 07/27/2015 11:19a [facility], Nereida Diego, 03107 R53.1 Hospitalists Vinicius J44.1 R06.09 I48.91 Office Visit 07/26/2015 11:18a [facility],pc Nereida Johnathon, 62536 R53.1 Hospitalists MAmol J44.1 R06.09 I48.91 Office Visit 07/25/2015 11:18a [facility],pc Juhi Wynnehn, 93294 R53.1 Hospitalists MAmol J44.1 R06.09 I48.91 Office Visit 07/24/2015 10:36a [facility] [place] [address] R06.02 Services Of [facility] J44.1 I48.91 Office Visit 07/24/2015 11:18a [facility], Juhi Pitts, 32699 R53.1 Hospitalists MAmol J44.1 R06.09 I48.91 Office Visit 07/23/2015 10:32a [facility] [place] [address] R06.02 Services Of [facility] J44.1 I48.91 Office Visit 07/23/2015 11:17a [facility],pc Juhi Hong, 00530 R53.1 Hospitalists MAmol R06.09 I48.91 I10 Office Visit 07/22/2015 2:12p [facility] Of Rocael Ayala, 26303 I48.2 Admissions Rn M.DDennis Office Visit 07/22/2015 11:16a [facility], Juhi Hohn, 66539 R53.1 Hospitalists M.Dhaval R06.09 I48.91 I10 Office Visit 07/21/2015 11:16a [facility],pc Jamie Nj M.D. 19324 R53.1 Hospitalists R06.09 I10 Office Visit 07/15/2015 9:40a [facility] Internal [place] [address] N39.0 Sudhakar R30.0 Office Visit 06/30/2015 10:40a [facility] Internal Medicine Pawel Herring, 57496 N39.0 - Sudhakar Colvin Office Visit 04/28/2015 11:30a [facility] Of Rema Gonzalez M.D. 89307 M17.12 C.M.ADennis S70.12xA M25.552 Office Visit 03/31/2015 9:00a [facility] Of Rema Gonzalez M.D. 35555 715.16 C.M.ADennis 719.06 719.46 Office Visit 02/05/2015 10:20a [facility] Internal Medicine Pawel Herring, 95834 496 - Sudhakar Colvin Office Visit 11/26/2014 9:40a [facility] Internal Medicine Pawel Herring, 92608 782.3 - Sudhakar Colvin 401.1 496 272.0 790.21 Office Visit 11/13/2014 8:30a [facility] [place] [address] 492.8 Services Of [facility] 496 518.83 Office Visit 07/09/2014 10:20a [facility] Internal Medicine Pawel Herring, 70047 780.93 - Sudhakar Colvin 401.1 496 Office Visit 06/24/2014 10:15a [facility] [place] [address] 496 Services Of [facility] 786.05 780.59 Office Visit 02/28/2014 9:30a [facility] Rocael Ayala 21462 427.31 Cristina Colvin 496 Office Visit 12/13/2013 11:40a [facility] Internal Medicine Pawel Herring, 16476 782.3 - Sudhakar Colvin Office Visit 08/31/2013 10:00a [facility] Internal Medicine Pawel Herring, 02055 466.0 - Sudhakar Colvin 496 Office Visit 01/03/2013 9:30a [facility] Rocael Ayala 77499 427.31 Cristina Colvin 496 401.9 Office Visit 06/05/2012 10:40a [facility] Internal Medicine Pawel Herring 79457 496 Sudhakar Colvin 401.1 Office Visit 04/05/2012 2:00p [facility] Internal Medicine - Pawel Herring, 05371 496 Sudhakar Colvin Office Visit 03/17/2012 1:30p [facility] Internal Medicine - Sri Pope N.Marium. 06596 496 Embudo 466.0 Office Visit 03/10/2012 10:00a [facility] Internal Medicine Sri Pope, N.P. 79014 466.0 - Embudo 496 Office Visit 01/03/2012 11:40a [facility] Internal Medicine - Pawel Ashish Herring, 27420 496 Sudhakar M.DDennis Office Visit 12/24/2011 10:30a [facility] Internal Medicine - Sri Pope, N.P. 36435 496 Embudo Office Visit 12/15/2011 10:00a [facility] 644[address] 496 Sudhakar Bonilla.Dhaval 401.1 Office Visit 12/03/2011 9:00a [facility] Internal Medicine - [facility] Nevaeh, 54760 496 Sudhakar Bonilla.Dhaval 401.1 272.0 790.21 427.31 Office Visit 05/26/2011 9:00a DO Not Use Admissions Rn At [facility], 22720 496 [facility] Chad.Dhaval 401.1 790.21 272.0 Office Visit 08/25/2010 9:40a DO Not Use Admissions Rn At [facility], 15214 496 [place] M.DDennis Office Visit 05/25/2010 9:00a DO Not Use Admissions Rn At [facility], 71937 401.1 [facility] M.DDennis 496 272.0 V70.0 Office Visit 11/19/2009 10:20a DO Not Use Admissions Rn At [facility], 28516 272.0 [place] M.DDennis 496 401.1 Office Visit 10/22/2009 9:20a DO Not Use Admissions Rn At [facility], 24552 466.0 [facility] M.DDennis 496 272.0 Office Visit 05/21/2009 11:00a DO Not Use Admissions Rn At [facility], 55724 496 [facility] Chad.Dhaval 401.1 272.0 Office Visit 03/05/2009 11:00a [facility] At [facility], 54063 782.3 [facility] Vinicius Office Visit 02/20/2009 11:30a [facility] At [facility], 49474 496 [facility].D. 782.3 401.1 Office Visit 11/20/2008 10:45a [facility] At [facility], 96992 496 [facility] M.D. Office Visit 10/21/2008 10:45a [facility] At [facility], 83867 466.0 [facility] M.D. Office Visit 06/05/2008 10:00a [facility] At [facility], 39178 786.05 [facility].D. 496 Office Visit 01/10/2008 11:15a [facility] At [facility], 72441 785.0 [facility].D. 272.0 Office Visit 12/13/2007 2:00p [facility] At [facility], 17986 496 [facility].D. Office Visit 11/22/2007 10:00a [facility] At [facility], 51279 272.0 [facility].D. 401.1 Office Visit 09/12/2007 12:37p [facility] At [facility], 76193 272.0 [facility].D. 401.1 427.1 Office Visit 09/12/2007 9:45a [facility] At [facility], 06853 272.0 [facility].D. 401.1 427.1 Office Visit 08/01/2007 1:45p [facility] At [facility], 01677 427.1 [facility] M.D. Office Visit 07/19/2007 9:30a [facility] At [facility], 40734 786.05 [facility] M.D. Office Visit 05/24/2007 9:45a [facility] At [facility], 24194 496 [facility].D. 401.1 272.0 Office Visit 03/01/2007 2:30p [facility], 80593 401.1 [facility] 272.0 366.9 Office Visit 02/16/2007 1:30p [facility] At Pawel Herring, 09113 401.1 [facility] Vinicius 496 272.0 Plan of Care Future Appointment(s):01/27/2018 9:30 am - Rema Gonzalez M.D. at [facility] C.MDennisADennis11/09/2017 9:30 am - Rocael Ayala M.D. at [facility]02/13/2018 9:20 am - Pawel Herring M.D. at [facility] Internal Medicine - Rmuehxzgc05/13/2018 - Rema Gonzalez M.D.M25.561 Pain in right kneeFollow up:Follow up: 3 pojbqwI90.562 Pain in left kneeM25.461 Effusion, right kneeM25.462 Effusion, left kneeM17.0 Bilateral primary osteoarthritis of knee
[2017-11-19] MEDS ORDERED: Ondansetron ODT TAB* 4 MG SL PRN (22:08)
[2017-11-19] MEDS ORDERED: Morphine VIAL* 4 MG/ML VIAL (1 ml vial) IV PRN (22:08)
[2017-11-19] MEDS ORDERED: Polyethylene Glycol 3350* 17 GM PACKET PO PRN (22:28)
[2017-11-19] MEDS ORDERED: LORazepam TAB(*) 1 MG PO SCH (23:00)
--- NOTE | 2017-11-19 23:18 | ED ---
Eli Solo Emily, scribed for Justino Caballero MD on 11/19/17 at 1949 . Lower Extremity - HPI Summary HPI Summary: This patient is a 87 year old M BIBA to [facility] accompanied by family with a chief complaint of R hip pain that began s/p fall. Pt reports slipping and falling in his kitchen, and dropping a glass, resulting in lacerations. Pt denies head injury. The patient rates the pain 7/10 in severity. Symptoms aggravated by nothing. Symptoms alleviated by nothing. Patient reports laceration on R knee and laceration on R elbow. Pt reports being Eliquis. - History of Current Complaint Chief Complaint: EDExtremityLower Stated Complaint: FALL/RT HIP PAIN Time Seen by Provider: 11/19/17 19:34 Hx Obtained From: Patient Mechanism Of Injury: Fall From A Standing Position Onset of Pain: Immediate Onset/Duration: Still Present Severity Initially: Moderate Severity Currently: Moderate Pain Intensity: 7 Pain Scale Used: 0-10 Numeric Timing: Constant Location: Is Discrete @ - R hip Associated Signs And Symptoms: Negative: Syncope Aggravating Factor(s): Nothing Alleviating Factor(s): Nothing - Allergies/Home Medications Allergies/Adverse Reactions: Allergies Allergy/AdvReac Type Severity Reaction Status Date / Time No Known Allergies Allergy Verified 03/20/17 08:38 Home Medications: Home Medications Arformoterol (NF) [Brovana(NF)] 15 mcg INH BID 11/19/17 [History Confirmed 11/19] Famotidine TAB* [Pepcid 20 MG TAB*] 1 tab PO DAILY 11/19/17 [History Confirmed 11/19/17] Lisinopril/HCTZ 20/12.5(NF) [Zestoretic 20/12.5(NF)] 1 tab PO DAILY 11/19/17 [ History Confirmed 11/19/17] PMH/Surg Hx/FS Hx/Imm Hx Previously Healthy: No Endocrine/Hematology History: Reports: Hx Diabetes - NIDDM Denies: Hx Thyroid Disease Cardiovascular History: Reports: Hx Congestive Heart Failure, Hx Hypercholesterolemia, Hx Hypertension Respiratory History: Reports: Hx Asthma, Hx Chronic Obstructive Pulmonary Disease (COPD) GI History: Reports: Hx Gastrointestinal Bleed Denies: Hx Ulcer History: Denies: Hx Renal Disease Comment Only: Other Problems/Disorders - hx admission for uti Musculoskeletal History: Reports: Hx Arthritis, Hx Back Problems Sensory History: Reports: Hx Contacts or Glasses, Hx Vision Problem, Hx Deafness , Hx Hearing Aid, Hx Hearing Problem Opthamlomology History: Reports: Hx Contacts or Glasses, Hx Vision Problem - Surgical History Surgery Procedure, Year, and Place: lung surgery, cholecystectomy, hernia repair , appendectomy Hx Anesthesia Reactions: No Infectious Disease History: Yes Infectious Disease History: Denies: Hx Clostridium Difficile, Hx Hepatitis, Hx Human Immunodeficiency Virus (HIV), Hx of Known/Suspected MRSA, Hx Shingles, Hx Tuberculosis, Hx Known/ Suspected VRE, Hx Known/Suspected VRSA, History Other Infectious Disease, Traveled Outside the [place] in Last 30 Days - Family History Known Family History: Positive: Diabetes Negative: Cardiac Disease, Hypertension Family History: no reported cardiovascular issues in family lineage - Social History Occupation: Retired Lives: With Family Alcohol Use: None Substance Use Type: Reports: None Smoking Status (MU): Former Smoker Type: Cigarettes Length of Time of Smoking/Using Tobacco: 40+ YEARS OF SMOKING Review of Systems Positive: Other - Positive R hip pain Positive: Other - Positive R knee laceration and R elbow laceration All Other Systems Reviewed And Are Negative: Yes Physical Exam - Summary Physical Exam Summary: VITAL SIGNS: Reviewed. GENERAL: ~Patient is a well-developed, nourished, elderly male who is lying comfortable in the stretcher. Patient is not in any acute respiratory distress. HEAD AND FACE: No signs of trauma. No ecchymosis, hematomas or skull depressions. No sinus tenderness. EYES: PERRLA, EOMI x 2, No injected conjunctiva, no nystagmus. EARS: Hearing grossly intact. Ear canals and tympanic membranes are within normal limits. MOUTH: Oropharynx within normal limits. NECK: Supple, trachea is midline, no adenopathy, no JVD, no carotid bruit, no c- spine tenderness, neck with full ROM. CHEST: Symmetric, no tenderness at palpation LUNGS: Decreased breath sounds bilaterally. No wheezing or crackles. CVS: Regular rate and rhythm, S1 and S2 present, no murmurs or gallops appreciated. ABDOMEN: Soft, non-tender. No signs of distention. No rebound no guarding, and no masses palpated. Bowel sounds are normal. EXTREMITIES: no edema, no cyanosis or clubbing. Pain with passive R hip movement. Pulses 3+ bilaterally NEURO: Alert and oriented x 3. No acute neurological deficits. Speech is normal and follows commands. SKIN: Dry and warm, multiple ecchymotic areas over his body. Three skin tears: right elbow, right forearm, and right knee Triage Information Reviewed: Yes Vital Signs On Initial Exam: Initial Vitals Temp Pulse Resp BP Pulse Ox 99.7 F 63 16 115/72 98 11/19/17 18:59 11/19/17 18:59 11/19/17 18:59 11/19/17 18:59 11/19/17 18:59 Vital Signs Reviewed: Yes Diagnostics - Vital Signs Vital Signs Temp Pulse Resp BP Pulse Ox 11/19/17 19:13 68 77 11/19/17 19:07 115/72 11/19/17 18:59 99.7 F 63 16 115/72 98 - Laboratory Result Diagrams: 11/19/17 20:33 11/19/17 20:33 Lab Statement: Any lab studies that have been ordered have been reviewed, and results considered in the medical decision making process. - Radiology Right hip/pelvis XR Radiology Interpretation Completed By: Radiologist - Right hip/pelvis XR reveals , per radiologist, displaced angulated fracture of the right femoral neck. ED physician has reviewed this radiology report. CXR Radiology Interpretation Completed By: Radiologist - CXR reveals, per radiologist, no evidence for acute disease. ED physician has reviewed this radiology report. - EKG 1948 Cardiac Rate: NL EKG Rhythm: Atrial Fibrillation - 101 BPM EKG Interpretation: PVCs. PACs Re-Evaluation - Re-Evaluation First Eval Re-Evaluation Time: 20:59 Change: Unchanged Comment: Discussed results with pt Lower Extremity Course/Dx - Course Course Of Treatment: 87 with multiple medical problems. Pt fell at home after losing balance. Complaining of right hip pain. Mild shortening of the right lower extremity. XR is consistent with r femoral neck fracture. Pt will be admitted to the hospitalist with ortho consult. - Diagnoses Provider Diagnoses: Right femoral fracture - Physician Notifications Discussed Care Of Patient With: Rema Gonzalez Time Discussed With Above Provider: 21:10 Instructed by Provider To: Other - Consult with Dr. Gonzalez (orthopedic surgeon) at 2109. She will consult with him tomorrow. Consult with Dr. Diego ( hospitalist) at 2110. She agrees to admit pt. Discharge - Sign-Out/Discharge Documenting (check all that apply): Discharge/Admit/Transfer - Admit to [facility] [place] Discharge Plan Condition: Stable Disposition: ADMITTED TO [facility] Referrals: Pawel Herring MD [Primary Care Provider] - The documentation as recorded by the Eli stoddard Emily accurately reflects the service I personally performed and the decisions made by me, Justino Caballero MD.
--- NOTE | 2017-11-20 00:23 | HP ---
CC: Dr. Herring * [facility] MEDICINE HISTORY AND PHYSICAL: DATE OF ADMISSION: 11/19/17 ATTENDING PHYSICIAN: DO Eduardo Mcintyre (dictation provided by Giana Judd NP ). CHIEF COMPLAINT: Right hip pain. HISTORY OF PRESENT ILLNESS: Mr. Pearl is an 87-year-old male with a past medical history of COPD, on 2 L nasal cannula; wedge resection for lung cancer; diabetes, which is non-insulin dependent; and AFib, who follows with Dr. Ayala. He presents today after having a mechanical fall at home and was experiencing severe right hip pain. The patient states he has been in his normal state of health with no acute complaints. He was walking across the kitchen today when he tripped and fell. He denies any dizziness, lightheadedness, or loss of consciousness. In the emergency room, Mr. Pearl was confirmed to have a right hip fracture. His labs are essentially unremarkable. His chest x-ray shows no acute intrathoracic process. His vital signs are stable. Mr. Pearl states that he would not be able to walk up a flight of stairs due to severe pain in both of his knees. He would also be somewhat limited by shortness of breath. He denies any history of coronary artery disease per his report, though he does follow with Dr. Ayala for his atrial fibrillation. PAST MEDICAL HISTORY: 1. COPD, on 2 L nasal cannula at home. 2. Diabetes, non-insulin dependent. 3. Atrial fibrillation, on Xarelto. 4. History of appendectomy. 5. History of cholecystectomy. 6. History of hernia repair. 7. History of wedge resection for lung cancer. MEDICATIONS: Outpatient are: 1. Metformin 500 mg p.o. b.i.d. 2. Brovana 15 mcg inhaled b.i.d. 3. Lisinopril/hydrochlorothiazide 20/12.5 one tab p.o. daily. 4. Famotidine 1 tab p.o. daily. 5. Apixaban 2.5 mg p.o. daily, last dose this morning. 6. Tylenol 650 mg p.o. q.6 hours p.r.n. 7. Lovastatin 40 mg p.o. bedtime. 8. Digoxin 1 tab p.o. daily. ALLERGIES: No known drug allergies. FAMILY HISTORY: The patient reports mother of heart attack, dad related to lung cancer. SOCIAL HISTORY: The patient is a former smoker. He quit 17 years ago, but has over [id number] history. No report of drug use. He lives with his , who is the healthcare proxy. Alcohol: The patient is a daily chronic drinker. REVIEW OF SYSTEMS: A 14-point review of systems was completed with Mr. Pearl and all those not mentioned above were negative. PHYSICAL EXAMINATION GENERAL: Mr. Pearl is lying in the bed with his family at the bedside. He is in no acute distress. VITAL SIGNS: Temperature 98.7, pulse rate 69, respiratory rate 18, O2 saturation 96% on room air, blood pressure 106/62. LUNGS: Clear to auscultation bilaterally, with no accessory muscle use and good aeration. HEART: S1, S2. No murmur, rub, or gallop and regular. ABDOMEN: Soft, nontender, with bowel sounds positive x4. EXTREMITIES: No cyanosis or edema. The patient's right leg is foreshortened and externally rotated. NEUROLOGIC: He is alert. He is oriented x3. He moves all extremities equally. There is no facial asymmetry or focal weakness. Extraocular movements are intact. DIAGNOSTIC STUDIES/LAB DATA: WBC 12.4, hemoglobin 14.3, hematocrit 42, platelet count 139. INR 1.02, sodium 137, potassium 3.6, chloride 100, serum bicarbonate 28, BUN 12, creatinine 0.59, glucose 102. Urine shows no evidence of infection. Chest x-ray shows no acute intrathoracic process. Hip, pelvis x- ray shows "displaced angulated fracture of the right femoral neck." ASSESSMENT: Mr. Pearl is an 87-year-old male with a past medical history of chronic obstructive pulmonary disease, on 2 L nasal cannula; wedge resection for lung cancer; diabetes; and atrial fibrillation. He presents to the hospital today with concern for right hip fracture. Our plans are for inpatient admission as I expect his length of stay to be greater than 2 days for the followin. Right hip fracture: Management will be per orthopedic service as the patient will have pain medications and a bowel regimen. In terms of cardiac risk, the patient does have atrial fibrillation and follows with Dr. Ayala. He last saw Dr. Ayala on 11/09/17. At that time, the patient denied any symptoms and there were no changes to his medication regimen. I note the patient's last cardiac catheterization appears to be in 2007 where he had normal LV function of 60% with some very mild coronary artery disease. The patient is not able to obtain 4 METS of activity and so assessment of his cardiac risk is limited. At this point, I do not see that further cardiac testing would be indicated, but I think he would likely benefit from cardiac consultation for cardiac risk stratification and optimization and I would recommend that Dr. Garcia from Cardiology be called tomorrow for this purpose. 2. Alcoholism: The patient's family reports the patient starts drinking alcohol about 2 o'clock every day. I am worried that he will have significant alcohol withdrawal during the hospitalization, which will complicate his stay. I have ordered a WAM protocol with folic acid, thiamine, and multivitamin as well as Ativan p.r.n. 3. Type 2 diabetes: Plan for blood glucoses q.a.c. with lispro sliding scale, plan to hold metformin. 4. Chronic obstructive pulmonary disease, 2 L nasal cannula: The patient will have oxygen available routinely and incentive spirometer with cough and deep breathing encouraged. 5. Atrial fibrillation: Plan to hold Eliquis pending plans for surgery. He is rate controlled, plan to continue digoxin. 6. Hypertension: Plan to continue lisinopril/hydrochlorothiazide, but this will likely be held around the perioperative period. 7. DVT Prophylaxis. Heparin subq. 8. Code status is DNR. TIME SPENT: Approximately 75 minutes were spent on the admission of this patient, more than half of that time was spent with the patient at the bedside reviewing the events leading up to this hospitalization, performing the physical examination, and reviewing my plan of care. GIANA JUDD, KYLAH [id number]/CPS #: [id number] NELDA
[2017-11-20] MEDS: oxyCODONE/Acetamin 5/325 MG* TAB PO PRN ×4 (00:51→21:53)
[2017-11-20 05:41] LABS: EGFR Non-African American 127.2 (>60)
[2017-11-20] MEDS: Heparin VIAL(*) 5000 UNITS/ML VIAL (FIVE THOUSAND) SUBCUT SCH ×3 (06:12→21:53)
[2017-11-20] MEDS: Insulin LISPRO* 1 UNITS UNIT SUBCUT SCH ×3 (07:50→18:21)
[2017-11-20] MEDS ORDERED: Hydrochlorothiazide TAB* 25 MG PO SCH (09:00)
[2017-11-20] MEDS ORDERED: Lisinopril TAB* 10 MG PO SCH (09:00)
[2017-11-20] MEDS ORDERED: Furosemide TAB* 20 MG PO SCH (09:00)
[2017-11-20] MEDS: Multivitamins/Minerals TAB PO SCH (09:38)
[2017-11-20] MEDS: Famotidine TAB* 20 MG PO SCH (09:39)
[2017-11-20] MEDS: Senna TAB PO SCH (09:39)
[2017-11-20] MEDS: Folic Acid TAB* 1 MG PO SCH (09:40)
[2017-11-20] MEDS: Thiamine TAB* 100 MG TAB PO SCH (09:41)
[2017-11-20] MEDS: Digoxin TAB* 0.125 MG PO SCH (16:35)
--- NOTE | 2017-11-20 16:39 | PN ---
Subjective Date of Service: 11/20/17 Interval History: Pain control OK. No new c/o. Objective Active Medications: Acetaminophen (Tylenol Tab*) 650 mg PO Q6H PRN PRN Reason: FEVER/PAIN Dextrose (D50w Syringe 50 Ml*) 12.5 gm IV PUSH .FOR FS < 60 - SS PRN PRN Reason: FS < 60 Digoxin (Lanoxin Tab*) 0.125 mg PO DAILY@1700 LUIS Docusate Sodium (Colace Cap*) 100 mg PO DAILY PRN PRN Reason: CONSTIPATION Famotidine (Pepcid Tab*) 20 mg PO DAILY REPLACED BY [facility] Last Admin: 11/20/17 09:39 Dose: 20 mg Folic Acid (Folvite Tab*) 1 mg PO DAILY REPLACED BY [facility] Last Admin: 11/20/17 09:40 Dose: 1 mg Heparin Sodium (Porcine) (Heparin Vial(*)) 5,000 units SUBCUT Q8HR REPLACED BY [facility] Last Admin: 11/20/17 13:35 Dose: 5,000 units Insulin Human Lispro (Humalog*) 0 units SUBCUT AC REPLACED BY [facility] PRN Reason: Protocol Last Admin: 11/20/17 13:34 Dose: 1 unit Lorazepam (Ativan Tab(*)) 0 - 6 mg PO .PER [facility] PROTOCOL REPLACED BY [facility] PRN Reason: Protocol Morphine Sulfate (Morphine Vial*) 4 mg IV Q4H PRN PRN Reason: PAIN - MILD Multivitamins/Minerals (Theragran/Minerals Tab*) 1 tab PO DAILY REPLACED BY [facility] Last Admin: 11/20/17 09:38 Dose: 1 tab Ondansetron HCl (Zofran Odt Tab*) 4 mg SL Q6H PRN PRN Reason: NAUSEA/VOMITING Oxycodone/Acetaminophen (Percocet 5/325 Tab*) 1 tab PO Q4H PRN PRN Reason: PAIN Oxycodone/Acetaminophen (Percocet 5/325 Tab*) 2 tab PO Q4H PRN PRN Reason: PAIN Last Admin: 11/20/17 09:39 Dose: 2 tab Polyethylene Glycol/Electrolytes (Miralax*) 17 gm PO DAILY PRN PRN Reason: CONSTIPATION Senna (Senokot Tab*) 1 tab PO DAILY REPLACED BY [facility] Last Admin: 11/20/17 09:39 Dose: 1 tab Thiamine HCl (Vitamin B-1 Tab*) 100 mg PO DAILY REPLACED BY [facility] Last Admin: 11/20/17 09:41 Dose: 100 mg Vital Signs - 8 hr 11/20/17 11/20/17 11/20/17 09:39 11:32 12:30 Temperature 98.8 F Pulse Rate 77 Respiratory 18 16 18 Rate Blood Pressure 91/40 (mmHg) O2 Sat by Pulse 96 Oximetry Oxygen Devices in Use Now: Nasal Cannula Appearance: Alert, partly up in bed. In good spirits. Looks comfortable at rest. Eyes: No Scleral Icterus Respiratory: Symmetrical Chest Expansion and Respiratory Effort, Clear to Auscultation, Clear to Percussion Cardiovascular: NL Sounds; No Murmurs; No JVD, RRR, No Edema, - Extremities: No Edema, No Clubbing, Cyanosis, - - R leg shortened and everted. Skin: No Rash or Ulcers, No Nodules or Sclerosis, - Neurological: Alert and Oriented x 3, NL Sensation Result Diagrams: 11/19/17 20:33 11/20/17 04:59 Assess/Plan/Problems-Billing Assessment: - Patient Problems (1) Hip fracture, right Current Visit: Yes Status: Acute Code(s): S72.001A - FRACTURE OF UNSP PART OF NECK OF RIGHT FEMUR, INIT SNOMED Code(s): 753655769 Comment: ORIF planned for Tuesday11/22/17. Pain control OK. Was on apixaban at home. Continue SQ heparin for DVT propylaxis. (2) Atrial fibrillation Current Visit: No Status: Acute Priority: Medium Code(s): I48.91 - UNSPECIFIED ATRIAL FIBRILLATION SNOMED Code(s): 25026030 Comment: Rate-controlled with digoxin. Level 0.9 11/11/17. Hold apixaban until post-op. (3) COPD (chronic obstructive pulmonary disease) Current Visit: No Status: Chronic Priority: Medium Code(s): J44.9 - CHRONIC OBSTRUCTIVE PULMONARY DISEASE, UNSPECIFIED SNOMED Code(s): 42560524 Comment: Quit smoking many yrs ago. (4) Diabetes Current Visit: No Status: Acute Code(s): E11.9 - TYPE 2 DIABETES MELLITUS WITHOUT COMPLICATIONS SNOMED Code(s): 98449847 Comment: Hold metformin. Lispro by SS. (5) Alcohol abuse Current Visit: Yes Status: Acute Code(s): F10.10 - ALCOHOL ABUSE, UNCOMPLICATED SNOMED Code(s): 71081628 Comment: WAM protocol ordered. No signs of withdrawal 11/20/17 4 PM.
--- NOTE | 2017-11-20 16:58 | CONS ---
ORTHOPEDIC CONSULTATION REPORT: DATE OF CONSULT: 11/20/17. Thank you for this orthopedic consultation. CHIEF COMPLAINT: Right hip pain. HISTORY OF PRESENT ILLNESS: Mr. Pearl is an 87-year-old gentleman who had a mechanical fall in his home on 11/19/17 in the evening. He had immediate 10/10 pain in the right hip and was unable to ambulate. He states he was walking into the kitchen when he tripped and fell. He was brought to the emergency room at [facility] by ambulance. He was noted to have a right displaced femoral neck fracture and I am consulted for orthopedic fracture care. Patient denies any other areas of pain. He walks very short distances due to shortness of breath, generalized deconditioning and severe knee arthritis. PAST MEDICAL HISTORY: COPD, on 2 L nasal cannula at home. Diabetes non- insulin dependent. Atrial fibrillation, on Xarelto. Prior wedge resection for lung mass which was noted to not be malignant. PAST SURGICAL HISTORY: Appendectomy, cholecystectomy, hernia repair, lung lobe resection many years ago. HOME MEDICATIONS: 1. Apixaban 2.5 mg p.o. daily. Last dose on 11/19/17. 2. Metformin 500 mg p.o. b.i.d. 3. Brovana 15 mcg inhaled b.i.d. 4. Lisinopril/hydrochlorothiazide 20/12.5 one tablet p.o. daily. 5. Famotidine 1 tablet p.o. daily. 6. Tylenol as needed for pain. 7. Lovastatin 40 mg p.o. q.h.s. 8. Digoxin 1 tablet p.o. daily. ALLERGIES: No known drug allergies. No known latex allergies. FAMILY HISTORY: Maternal heart disease. Paternal lung cancer. SOCIAL HISTORY: Patient normally ambulates with a cane short distances. He is a former smoker. No history of recreational drug use. He is a chronic daily drinker, with possibly more than 6 alcoholic beverages per day. REVIEW OF SYSTEMS: A 14 systems reviewed with the patient today. Positive for the right hip pain, his baseline bilateral knee pain. He denies fevers, chills , chest pain. He reports baseline shortness of breath. Otherwise, patient reports review of systems is negative or not relevant. PHYSICAL EXAM: Vitals: Temperature 98.8, pulse 77, blood pressure 91/40. General: Patient is a thin male, in no apparent distress, alert and oriented x3. Pleasant mood, appropriate affect. Accompanied by supportive and daughters. Gait is not assessed. Balance is not assessed. Coordination normal. HEENT: Atraumatic, normocephalic. Pupils are equal, reactive to light. Neck: Trachea midline. Neck supple. No palpable adenopathy. Heart: S1 and S2. Lungs: Clear to auscultation. No wheezes, rubs or rhonchi. Unlabored breathing. Abdomen: Soft, nontender, nondistended. Bowel sounds in 4 quadrants. Bilateral upper extremities: Patient's skin is intact. He has multiple areas of ecchymosis likely from his chronic blood thinner use. He can forward and abduct his shoulders to 120 degrees with no instability. He has 4+/ 5 bilateral art conservator strength. 2+ palpable radial pulses. He reports full sensation to light touch in all nerve distributions. No bony tenderness to palpation. No palpable masses or lymph nodes. Right lower extremity: Patient' s skin is intact. No abrasions or open wounds. He has externally rotated shortened leg, tenderness with palpation of the thigh. Thigh is soft, and compressible. Distally, no significant edema. He can demonstrate dorsiflexion and plantar flexion with 4+/5 strength. Full sensation to light touch in all nerve distributions and 2+ palpable DP pulse. Left lower extremity: The patient's skin is intact. No abrasions or open wounds. No palpable masses or lymph nodes. He can flex the hip and knee to 90 degrees, distally 5/5 ankle dorsiflexion and plantar flexion strength. Full sensation to light touch in all nerve distributions and 2+ palpable DP pulse. LABORATORY DATA: 11/19/17 lab show white blood cell 12.4, hematocrit 42, platelets 139. INR 1.02, APTT 30.4. Sodium 134, potassium 3.8, chloride 99, BUN and creatinine 15 and 0.6. Glucose 196. Urinalysis was negative. RADIOGRAPHS: Multiple views of the right hip show a displaced femoral neck fracture. I have no views of the femur. These will be ordered. ASSESSMENT AND PLAN: Mr. Pearl is an 87-year-old gentleman with significant medical comorbidities. He had a mechanical fall in his home and now has a right displaced femoral neck fracture. Patient's blood thinner obvious causes him to bleed, his entire upper extremities are covered with bruises. He took his last dose on 11/19/17. I would then therefore be able to perform surgery after 2 days of him being off the drug. This will put us at Tuesday11/22/17. I will tentatively schedule him for an 8 a.m. surgery. He will be NPO after midnight Tuesday night 11/21/17. Medical team is currently working on preoperative optimization. He will likely have a cardiac consult. Of course, we will hold the Xarelto. He will have p.r.n. analgesia. He will have a Dick catheter. The patient, his , and his daughters had a ernie discussion with me concerning the risks and benefits of surgery. They would like to proceed with operative care. I made it clear that the risks of surgery include but are not limited to bleeding, infection, damage to nearby structures, continued pain, need for further surgery, loosening or failure of hardware, dislocation, leg length discrepancies, strokes, heart attack, blood clot and . Patient is elderly and I feel he is likely a high risk for postoperative complication. Patient and his family understands this. They wished to proceed. Patient is also a daily drinker with possible history of alcoholism. Significant risk of alcohol withdrawal and he will be placed on the [facility] protocol. Ortho will follow along and we will plan on tentative 11/22/17, right hip hemiarthroplasty. [id number]/[facility] #: [id number] NELDA
[2017-11-20] MEDS: Docusate CAP* 100 MG PO PRN (21:53)
[2017-11-21] MEDS: Heparin VIAL(*) 5000 UNITS/ML VIAL (FIVE THOUSAND) SUBCUT SCH ×3 (06:42→20:26)
--- NOTE | 2017-11-21 08:22 | PN ---
Progress Note - Progress Note Date of Service: 11/21/17 SOAP: Subjective: 87 y/o male with R femoral neck fracture, on Xarelto, scheduled for OR with Dr Gonzalez tomorrow. Patient with no complaints, concerns. Pain 9/10 at times, but comfortably. VSS, afebrile overnight. Objective: General- Well appearing, NAD, AO, resting in bed comfortably MSK- Right leg shortened, externally rotated, no ecchymosis, erythema seen, no skin breakdown. PT 2+, + DF/PF = b/l. Vital Signs Temp 99.7 F 11/21/17 11:28 Pulse 92 11/21/17 11:28 Resp 17 11/21/17 11:28 BP 108/64 11/21/17 11:28 Pulse Ox 94 11/21/17 11:28 Intake & Output 11/20/17 11/21/17 11/21/17 18:59 06:59 18:59 Intake Total 120 710 225 Output Total 625 625 120 Balance -505 85 105 Intake: Oral 120 710 225 Output: Urine 625 625 120 Assessment: Stable 87 y/o male with R femoral neck fracture, on Xarelto, scheduled for OR with Dr Gonzalez tomorrow Plan: - DVT prophylaxis- heparin. H/O Afib, on Xarelto, hold x 2 days prior to ORIF - Likely ORIF with Dr Gonzalez tomorrow - patient not cleared from hospitalists currently, will discuss if cardiology consult necessary. - Continue PT/ OT - Follow up with Dr. Gonzalez within 10-14 days post-op - H&H - Stable - Cardiology consult today w Dr. Ayala - NPO p MN, hold heparin Acetaminophen (Tylenol Tab*) 650 mg PO Q6H PRN PRN Reason: FEVER/PAIN Dextrose (D50w Syringe 50 Ml*) 12.5 gm IV PUSH .FOR FS < 60 - SS PRN PRN Reason: FS < 60 Digoxin (Lanoxin Tab*) 0.125 mg PO DAILY@1700 [facility] Last Admin: 11/20/17 16:35 Dose: 0.125 mg Docusate Sodium (Colace Cap*) 100 mg PO DAILY PRN PRN Reason: CONSTIPATION Last Admin: 11/20/17 21:53 Dose: 100 mg Famotidine (Pepcid Tab*) 20 mg PO DAILY [facility] Last Admin: 11/21/17 10:00 Dose: 20 mg Folic Acid (Folvite Tab*) 1 mg PO DAILY [facility] Last Admin: 11/21/17 10:00 Dose: 1 mg Heparin Sodium (Porcine) (Heparin Vial(*)) 5,000 units SUBCUT Q8HR [facility] Stop: 11/21/17 23:59 Last Admin: 11/21/17 06:42 Dose: 5,000 units Heparin Sodium (Porcine) (Heparin Vial(*)) 5,000 units SUBCUT Q8HR [facility] Insulin Human Lispro (Humalog*) 0 units SUBCUT AC [facility] PRN Reason: Protocol Last Admin: 11/21/17 09:54 Dose: Not Given Lorazepam (Ativan Tab(*)) 0 - 6 mg PO .PER [facility] PROTOCOL [facility] PRN Reason: Protocol Morphine Sulfate (Morphine Vial*) 4 mg IV Q4H PRN PRN Reason: PAIN - MILD Multivitamins/Minerals (Theragran/Minerals Tab*) 1 tab PO DAILY [facility] Last Admin: 11/21/17 10:00 Dose: 1 tab Ondansetron HCl (Zofran Odt Tab*) 4 mg SL Q6H PRN PRN Reason: NAUSEA/VOMITING Oxycodone/Acetaminophen (Percocet 5/325 Tab*) 1 tab P O Q4H PRN PRN Reason: PAIN Last Admin: 11/21/17 09:59 Dose: 1 tab Oxycodone/Acetaminophen (Percocet 5/325 Tab*) 2 tab PO Q4H PRN PRN Reason: PAIN Last Admin: 11/20/17 21:53 Dose: 2 tab Polyethylene Glycol/Electrolytes (Miralax*) 17 gm PO DAILY PRN PRN Reason: CONSTIPATION Senna (Senokot Tab*) 1 tab PO DAILY [facility] Last Admin: 11/21/17 10:00 Dose: 1 tab Thiamine HCl (Vitamin B-1 Tab*) 100 mg PO DAILY [facility] Last Admin: 11/21/17 09:56 Dose: 100 mg Laboratory Results - last 24 hr 11/20/17 11/20/17 11/21/17 16:55 16:59 08:01 POC Glucose (mg/dL) 58 L 153 H 145 H
[2017-11-21] MEDS: Insulin LISPRO* 1 UNITS UNIT SUBCUT SCH ×3 (09:54→18:17)
[2017-11-21] MEDS: Thiamine TAB* 100 MG TAB PO SCH (09:56)
[2017-11-21] MEDS: oxyCODONE/Acetamin 5/325 MG* TAB PO PRN ×3 (09:59→18:18)
[2017-11-21] MEDS: Folic Acid TAB* 1 MG PO SCH (10:00)
[2017-11-21] MEDS: Multivitamins/Minerals TAB PO SCH (10:00)
[2017-11-21] MEDS: Famotidine TAB* 20 MG PO SCH (10:00)
[2017-11-21] MEDS: Senna TAB PO SCH (10:00)
--- NOTE | 2017-11-21 15:02 | PN ---
Subjective Date of Service: 11/21/17 Interval History: No overnight events, complains of hip pain today. Family History: Unchanged from Admission Social History: Unchanged from Admission Past Medical History: Unchanged from Admission Objective Active Medications: Acetaminophen (Tylenol Tab*) 650 mg PO Q6H PRN PRN Reason: FEVER/PAIN Dextrose (D50w Syringe 50 Ml*) 12.5 gm IV PUSH .FOR FS < 60 - SS PRN PRN Reason: FS < 60 Digoxin (Lanoxin Tab*) 0.125 mg PO DAILY@1700 [facility] Last Admin: 11/20/17 16:35 Dose: 0.125 mg Docusate Sodium (Colace Cap*) 100 mg PO DAILY PRN PRN Reason: CONSTIPATION Last Admin: 11/20/17 21:53 Dose: 100 mg Famotidine (Pepcid Tab*) 20 mg PO DAILY [facility] Last Admin: 11/21/17 10:00 Dose: 20 mg Folic Acid (Folvite Tab*) 1 mg PO DAILY [facility] Last Admin: 11/21/17 10:00 Dose: 1 mg Heparin Sodium (Porcine) (Heparin Vial(*)) 5,000 units SUBCUT Q8HR [facility] Stop: 11/21/17 23:59 Last Admin: 11/21/17 13:59 Dose: 5,000 units Heparin Sodium (Porcine) (Heparin Vial(*)) 5,000 units SUBCUT Q8HR [facility] Insulin Human Lispro (Humalog*) 0 units SUBCUT AC [facility] PRN Reason: Protocol Last Admin: 11/21/17 12:54 Dose: Not Given Lorazepam (Ativan Tab(*)) 0 - 6 mg PO .PER [facility] PROTOCOL [facility] PRN Reason: Protocol Morphine Sulfate (Morphine Vial*) 4 mg IV Q4H PRN PRN Reason: PAIN - MILD Multivitamins/Minerals (Theragran/Minerals Tab*) 1 tab PO DAILY [facility] Last Admin: 11/21/17 10:00 Dose: 1 tab Ondansetron HCl (Zofran Odt Tab*) 4 mg SL Q6H PRN PRN Reason: NAUSEA/VOMITING Oxycodone/Acetaminophen (Percocet 5/325 Tab*) 1 tab PO Q4H PRN PRN Reason: PAIN Last Admin: 11/21/17 13:59 Dose: 1 tab Oxycodone/Acetaminophen (Percocet 5/325 Tab*) 2 tab PO Q4H PRN PRN Reason: PAIN Last Admin: 11/20/17 21:53 Dose: 2 tab Polyethylene Glycol/Electrolytes (Miralax*) 17 gm PO DAILY PRN PRN Reason: CONSTIPATION Senna (Senokot Tab*) 1 tab PO DAILY [facility] Last Admin: 11/21/17 10:00 Dose: 1 tab Thiamine HCl (Vitamin B-1 Tab*) 100 mg PO DAILY [facility] Last Admin: 11/21/17 09:56 Dose: 100 mg Vital Signs - 8 hr 11/21/17 11/21/17 11/21/17 08:00 09:22 09:59 Temperature 100.0 F Pulse Rate 99 Respiratory 18 20 18 Rate Blood Pressure 136/67 (mmHg) O2 Sat by Pulse 95 Oximetry 11/21/17 11/21/17 11/21/17 11:28 12:30 13:59 Temperature 99.7 F Pulse Rate 92 Respiratory 17 16 16 Rate Blood Pressure 108/64 (mmHg) O2 Sat by Pulse 94 Oximetry Oxygen Devices in Use Now: Nasal Cannula Appearance: alert, well appearing Eyes: No Scleral Icterus Ears/Nose/Mouth/Throat: NL Teeth, Lips, Gums Neck: NL Appearance and Movements; NL JVP Respiratory: Symmetrical Chest Expansion and Respiratory Effort, Clear to Auscultation, - - no wheezes or rhonchi. barrel chested. Cardiovascular: - - irregular rhythm. no jvd. Abdominal: NL Sounds; No Tenderness; No Distention Lymphatic: No Cervical Adenopathy Extremities: No Edema, - - r hip externally rotated and shorter than l Neurological: Alert and Oriented x 3, - - no asterixis Result Diagrams: 11/19/17 20:33 11/20/17 04:59 Assess/Plan/Problems-Billing Assessment: 87 yo man with history of afib, dm, copd, and etoh abuse admitted with mechanical fall and found to have right hip fracture. - Patient Problems (1) Hip fracture, right Current Visit: Yes Status: Acute Code(s): S72.001A - FRACTURE OF UNSP PART OF NECK OF RIGHT FEMUR, INIT SNOMED Code(s): 092604238 Comment: ORIF planned for Tuesday11/22/17 (due to home apixaban). pain control OK. Continue SQ heparin for DVT propylaxis. Cardiology consulted for pre-op evaluation. (2) Alcohol abuse Current Visit: Yes Status: Acute Code(s): F10.10 - ALCOHOL ABUSE, UNCOMPLICATED SNOMED Code(s): 69353575 Comment: WAM protocol ordered. No signs of withdrawal. (3) Atrial fibrillation Current Visit: No Status: Acute Priority: Medium Code(s): I48.91 - UNSPECIFIED ATRIAL FIBRILLATION SNOMED Code(s): 23636975 Comment: Rate-controlled with digoxin only. apixaban on hold for OR [id number], will not bridge with heparin for now unless recommended by cardiology (4) Diabetes Current Visit: No Status: Acute Code(s): E11.9 - TYPE 2 DIABETES MELLITUS WITHOUT COMPLICATIONS SNOMED Code(s): 06529500 Comment: Hold metformin. Lispro by SS. (5) COPD (chronic obstructive pulmonary disease) Current Visit: No Status: Chronic Priority: Medium Code(s): J44.9 - CHRONIC OBSTRUCTIVE PULMONARY DISEASE, UNSPECIFIED SNOMED Code(s): 82473736 Comment: on 2L NC round the clock at home, also on 2L now no evidence of exacerbation
[2017-11-21] MEDS: Digoxin TAB* 0.125 MG PO SCH (17:22)
--- NOTE | 2017-11-21 22:09 | RAD ---
Indication: Preoperative planning Comparison: Similar radiograph August 01, 2015 Technique: 7 views right femur. Report: There is a fracture through the right femoral neck exhibiting varus angulation. The remaining visualized bones are otherwise intact and appropriately aligned. A sclerotic bony focus overlying the distal right femoral metaphysis as benign radiographic features. Incidental note is made of coarse atherosclerotic calcification of the superficial femoral artery. IMPRESSION: 1. Fracture through the right femoral neck exhibiting varus angulation. 2. Incidentally noted is coarse atherosclerotic calcification of the superficial femoral artery.
--- NOTE | 2017-11-22 02:39 | CONS ---
CC: Rema Gonzalez MD * CARDIOLOGY CONSULTATION: DATE OF CONSULT: 11/21/17 INDICATION FOR CONSULTATION: Atrial flutter, right hip fracture. HISTORY OF PRESENT ILLNESS: The patient is an 87-year-old gentleman well known to me for his cardiac care. He is an 87-year-old gentleman with a history of chronic atrial flutter, who I had last seen on 11/09/17. The patient also has a history of mild coronary artery disease. His last echocardiogram in July 2015 showed normal LV size and systolic function, biatrial enlargement, no significant valvular disease. He had mild pulmonary hypertension. He did have a full cardiac stress test in 2009, which showed normal perfusion throughout the myocardium. The patient had a fall at home resulting in a right hip fracture. He is scheduled for right hemiarthroplasty tomorrow morning. PAST MEDICAL HISTORY: Significant for diabetes, chronic atrial fibrillation, mild coronary artery disease, mild COPD, hypercholesterolemia, hypertension. PAST SURGICAL HISTORY: Right lung lobectomy in 1989, cholecystectomy, appendectomy, hernia repair. OUTPATIENT MEDICATIONS: 1. Lisinopril/hydrochlorothiazide 20/12.5 mg a day. 2. Metformin 500 mg 2 tabs b.i.d. 3. Famotidine 20 mg a day. 4. Digoxin 125 mcg a day. 5. Eliquis 2.5 mg b.i.d. 6. Multiple inhalers. 7. Lovastatin 40 mg a day. 8. Oxygen 2 L at night. ALLERGIES: No known drug allergies. SOCIAL HISTORY: He is . He is retired. He is a long time smoker, quit in 1999. Drinks 2 to 5 drinks a day. PHYSICAL EXAM: Height is 5 feet 10 inches, weight is 160 pounds. Temperature 98.7, heart rate is 71, respiratory rate is 18, oxygen saturation 95% on 2 L, blood pressure 101/59. Sclerae anicteric. Oropharynx is pink without erythema. Carotids are 2+ without bruits. JVD is normal. Thyroid is normal. Cardiac Exam: Irregular. S1, S2 without any murmurs, rubs, or gallops. PMI is normal. Lungs have mildly decreased breath sounds. There is no rhonchi or wheezes. Abdomen is soft, nontender, nondistended with normoactive bowel sounds. Extremities show no edema. He has 2+ pulses through-out. The patient is awake, alert, and oriented. He moves all 4 extremities equally. DIAGNOSTIC STUDIES/LAB DATA: Laboratory studies: CBC within normal limits. Chemistries within normal limits. BUN 15, creatinine 0.6. AST and ALT are normal. EKG shows atrial fibrillation with a right bundle branch block, occasional PVCs. IMPRESSION: This is an 87-year-old gentleman with a history of known mild coronary artery disease. He had a cardiac catheterization in 2007, which demonstrated a mid left main stenosis of 30%. The remainder of the vessels without disease. The patient is admitted to the hospital with a right hip fracture. The patient is at mild to moderately increased risk of cardiovascular complications given his age and his surgery. At this point, I do not think any other cardiac testing is necessary. The patient has good heart rate control. He has a normal LV function in 2016. I will continue to follow the patient during his hospitalization. No other cardiac testing is necessary. [id number]/[facility] #: [id number] NELDA
[2017-11-22] MEDS ORDERED: fentaNYL* 50 MCG/ML 2 ML VIAL (100 MCG VIAL) IV PRN (05:47)
[2017-11-22] MEDS ORDERED: oxyCODONE/Acetamin 5/325 MG* TAB PO PRN (05:47)
[2017-11-22] MEDS ORDERED: Morphine INJ* 2 MG/ML 1 ML CARPUJECT IV PRN (05:47)
[2017-11-22] MEDS ORDERED: Naloxone* 0.4 MG/ML 1 ML VIAL IV PRN (05:47)
[2017-11-22] MEDS ORDERED: DiMENhydriNATE IV* 50 MG/ML VIAL IV PUSH PRN (05:47)
[2017-11-22] MEDS ORDERED: PROCHLORPERAZINE INJ 5 MG/ML 2 ML VIAL IV PRN (05:47)
[2017-11-22 06:11] LABS: ABS Basophils 0 10^3/ul (0-0.2); ABS Eosinophils 0.1 10^3/ul (0-0.6); ABS Lymphocytes 1.5 10^3/ul (1.0-4.8); ABS Monocytes 1.4 10^3/ul (0-0.8); ABS Neutrophils 8.9 10^3/ul (1.5-7.7); ABS Nucleated RBC 0 10^3/ul; Eosinophil % 1.1 % (0-6); Hematocrit 40 % (42-52); Hemoglobin 13.6 g/dl (14.0-18.0); Lymphocyte % 12.6 % (25-47); Mean Corpuscular HGB Conc 34 g/dl (31-36); Mean Corpuscular Hemoglobin 33 pg (27-31); Mean Corpuscular Volume 95 fL (80-94); Mean Platelet Volume 9.2 um3 (7.4-10.4); Nucleated Red Blood Cells % 0.1; Platelet Count 131 10^3/ul (150-450); Red Blood Count 4.19 10^6/ul (4.0-5.4); Red Cell Distribution Width 14 % (10.5-15); White Blood Count 11.9 10^3/ul (3.5-10.8)
[2017-11-22 06:17] LABS: INR 1.02 (0.77-1.02)
[2017-11-22 06:27] LABS: EGFR Non-African American 132.2 (>60)
[2017-11-22] MEDS: Famotidine TAB* 20 MG PO SCH (09:05)
[2017-11-22] MEDS: Insulin LISPRO* 1 UNITS UNIT SUBCUT SCH ×3 (09:05→17:12)
[2017-11-22] MEDS: Multivitamins/Minerals TAB PO SCH (09:06)
[2017-11-22] MEDS: Thiamine TAB* 100 MG TAB PO SCH (09:06)
[2017-11-22] MEDS: Folic Acid TAB* 1 MG PO SCH (09:06)
[2017-11-22] MEDS: Senna TAB PO SCH (09:06)
--- NOTE | 2017-11-22 11:51 | RAD ---
Indication: Status post right hip hemiarthroplasty. 2 views of the right hip and an AP view the pelvis demonstrates right hip hemiarthroplasty in satisfactory position. No loosening is noted. Pelvic ring is grossly intact. IMPRESSION: Right hip hemiarthroplasty in satisfactory position.
--- NOTE | 2017-11-22 14:47 | RAD ---
Indication: Right hip replacement. Single view of the right hip demonstrates right hip replacement in satisfactory position. No loosening is noted. IMPRESSION: Right hip replacement appears in satisfactory position.
[2017-11-22] MEDS: Heparin VIAL(*) 5000 UNITS/ML VIAL (FIVE THOUSAND) SUBCUT SCH ×2 (14:49→22:19)
[2017-11-22] MEDS: oxyCODONE/Acetamin 5/325 MG* TAB PO PRN ×2 (15:04→19:24)
[2017-11-22] MEDS: ceFAZolin 1 GM in Dextrose (*) 1 GM/50 ML BAG IVPB SCH (17:01)
[2017-11-22] MEDS: Digoxin TAB* 0.125 MG PO SCH (17:01)
--- NOTE | 2017-11-22 19:59 | PN ---
Subjective Date of Service: 11/22/17 Interval History: went to the OR this morning, is seen post-op. He has no pain, no complaints, but he does not know where he is. He thinks he is in his house but when given clues, he recalls he is in the hospital. He knows his name but thinks the year is "." He answers other questions appropriately and denies chest pain, shortness of breath, palpitations, nausea. Family History: Unchanged from Admission Social History: Unchanged from Admission Past Medical History: Unchanged from Admission Objective Active Medications: Acetaminophen (Tylenol Tab*) 650 mg PO Q6H PRN PRN Reason: FEVER/PAIN Dextrose (D50w Syringe 50 Ml*) 12.5 gm IV PUSH .FOR FS < 60 - SS PRN PRN Reason: FS < 60 Digoxin (Lanoxin Tab*) 0.125 mg PO DAILY@1700 [facility] Last Admin: 11/22/17 17:01 Dose: 0.125 mg Docusate Sodium (Colace Cap*) 100 mg PO DAILY PRN PRN Reason: CONSTIPATION Last Admin: 11/20/17 21:53 Dose: 100 mg Famotidine (Pepcid Tab*) 20 mg PO DAILY [facility] Last Admin: 11/22/17 09:05 Dose: Not Given Folic Acid (Folvite Tab*) 1 mg PO DAILY [facility] Last Admin: 11/22/17 09:06 Dose: Not Given Heparin Sodium (Porcine) (Heparin Vial(*)) 5,000 units SUBCUT Q8HR [facility] Last Admin: 11/22/17 14:49 Dose: Not Given Cefazolin Sodium/Dextrose (Kefzol 1 Gm In Dextrose Duplex (*)) 1 gm in 50 mls @ 200 mls/hr IVPB Q8H [facility] Stop: 11/23/17 08:44 Last Admin: 11/22/17 17:01 Dose: 200 mls/hr Lactated Ringer's (Lactated Ringers 1000 Ml Bag*) 1,000 mls @ 100 mls/hr IV PER RATE [facility] Last Admin: 11/22/17 16:11 Dose: 100 mls/hr Insulin Human Lispro (Humalog*) 0 units SUBCUT AC [facility] PRN Reason: Protocol Last Admin: 11/22/17 17:12 Dose: 3 unit Lorazepam (Ativan Tab(*)) 0 - 6 mg PO .PER [facility] PROTOCOL [facility] PRN Reason: Protocol Morphine Sulfate (Morphine Vial*) 4 mg IV Q4H PRN PRN Reason: PAIN - MILD Multivitamins/Minerals (Theragran/Minerals Tab*) 1 tab PO DAILY [facility] Last Admin: 11/22/17 09:06 Dose: Not Given Naloxone HCl (Narcan*) 0.08 mg IV Q2M PRN PRN Reason: severe induced resp depression Stop: 11/23/17 05:46 Ondansetron HCl (Zofran Odt Tab*) 4 mg SL Q6H PRN PRN Reason: NAUSEA/VOMITING Oxycodone/Acetaminophen (Percocet 5/325 Tab*) 1 tab PO Q4H PRN PRN Reason: PAIN Last Admin: 11/22/17 19:24 Dose: 1 tab Oxycodone/Acetaminophen (Percocet 5/325 Tab*) 2 tab PO Q4H PRN PRN Reason: PAIN Last Admin: 11/20/17 21:53 Dose: 2 tab Polyethylene Glycol/Electrolytes (Miralax*) 17 gm PO DAILY PRN PRN Reason: CONSTIPATION Senna (Senokot Tab*) 1 tab PO DAILY [facility] Last Admin: 11/22/17 09:06 Dose: Not Given Thiamine HCl (Vitamin B-1 Tab*) 100 mg PO DAILY [facility] Last Admin: 11/22/17 09:06 Dose: Not Given Vital Signs - 8 hr 11/22/17 11/22/17 11/22/17 12:16 12:30 12:31 Temperature 97.0 F Pulse Rate 98 81 Respiratory 18 25 Rate Blood Pressure 161/85 125/76 (mmHg) O2 Sat by Pulse 97 98 Oximetry 11/22/17 11/22/17 11/22/17 12:45 12:47 13:01 Temperature Pulse Rate 83 81 80 Respiratory 16 25 18 Rate Blood Pressure 154/94 143/74 (mmHg) O2 Sat by Pulse 98 99 99 Oximetry 11/22/17 11/22/17 11/22/17 13:15 13:30 13:45 Temperature 97.7 F Pulse Rate 85 71 84 Respiratory 19 21 Rate Blood Pressure 135/99 138/92 137/101 (mmHg) O2 Sat by Pulse 95 99 96 Oximetry 11/22/17 11/22/17 11/22/17 14:00 14:02 14:25 Temperature 98.7 F Pulse Rate 87 82 Respiratory 18 20 Rate Blood Pressure 137/82 137/76 (mmHg) O2 Sat by Pulse 97 96 Oximetry 11/22/17 11/22/17 11/22/17 14:38 15:04 15:18 Temperature 98.7 F Pulse Rate 80 Respiratory 20 18 20 Rate Blood Pressure 137/76 (mmHg) O2 Sat by Pulse 98 Oximetry 11/22/17 11/22/17 11/22/17 15:43 16:41 17:01 Temperature 98.1 F 98.3 F Pulse Rate 88 91 78 Respiratory 22 16 Rate Blood Pressure 113/58 112/60 (mmHg) O2 Sat by Pulse 96 97 Oximetry 11/22/17 11/22/17 11/22/17 17:14 19:24 19:31 Temperature Pulse Rate Respiratory 16 20 18 Rate Blood Pressure (mmHg) O2 Sat by Pulse Oximetry Oxygen Devices in Use Now: Nasal Cannula Appearance: alert, calm, pleasant Eyes: No Scleral Icterus, - - injected conjunctiva Ears/Nose/Mouth/Throat: NL Teeth, Lips, Gums, - - edentulous Neck: NL Appearance and Movements; NL JVP Cardiovascular: NL Sounds; No Murmurs; No JVD, - - irregular rhythm Abdominal: NL Sounds; No Tenderness; No Distention Lymphatic: No Cervical Adenopathy Extremities: No Edema, - - right hip incision stapled Skin: No Rash or Ulcers Neurological: - - oriented to person only. no tremor, no diaphoresis, no hallucinations Result Diagrams: 11/22/17 05:41 11/22/17 05:41 Assess/Plan/Problems-Billing Assessment: 87 yo man with history of afib, dm, copd, and etoh abuse admitted with mechanical fall and found to have right hip fracture. - Patient Problems (1) Hip fracture, right Current Visit: Yes Status: Acute Code(s): S72.001A - FRACTURE OF UNSP PART OF NECK OF RIGHT FEMUR, INIT SNOMED Code(s): 890021064 Comment: POD #0 with some post-op delirium (monitoring for etoh withdrawal as well, but at this point seems related to anesthesia immediately post-op) pain control OK. Continue SQ heparin for DVT propylaxis. (2) Alcohol abuse Current Visit: Yes Status: Acute Code(s): F10.10 - ALCOHOL ABUSE, UNCOMPLICATED SNOMED Code(s): 96298599 Comment: WAM protocol ordered. No signs of withdrawal. (3) Atrial fibrillation Current Visit: No Status: Acute Priority: Medium Code(s): I48.91 - UNSPECIFIED ATRIAL FIBRILLATION SNOMED Code(s): 23381143 Comment: Rate-controlled with digoxin only. apixaban on hold for OR; needs to be resumed prior to discharge [id number], will not bridge with heparin (4) Diabetes Current Visit: No Status: Acute Code(s): E11.9 - TYPE 2 DIABETES MELLITUS WITHOUT COMPLICATIONS SNOMED Code(s): 89236175 Comment: Hold metformin. Lispro by SS. (5) COPD (chronic obstructive pulmonary disease) Current Visit: No Status: Chronic Priority: Medium Code(s): J44.9 - CHRONIC OBSTRUCTIVE PULMONARY DISEASE, UNSPECIFIED SNOMED Code(s): 45665040 Comment: on 2L NC round the clock at home, also on 2L now no evidence of exacerbation
[2017-11-23] MEDS: ceFAZolin 1 GM in Dextrose (*) 1 GM/50 ML BAG IVPB SCH ×2 (00:52→09:09)
[2017-11-23] MEDS: oxyCODONE/Acetamin 5/325 MG* TAB PO PRN ×3 (03:03→18:43)
[2017-11-23] MEDS: Heparin VIAL(*) 5000 UNITS/ML VIAL (FIVE THOUSAND) SUBCUT SCH ×3 (06:02→22:25)
[2017-11-23] MEDS: Senna TAB PO SCH (07:49)
[2017-11-23] MEDS: Multivitamins/Minerals TAB PO SCH (07:49)
[2017-11-23] MEDS: Famotidine TAB* 20 MG PO SCH (07:49)
[2017-11-23] MEDS: Folic Acid TAB* 1 MG PO SCH (07:50)
[2017-11-23] MEDS: Thiamine TAB* 100 MG TAB PO SCH (07:50)
[2017-11-23] MEDS: Insulin LISPRO* 1 UNITS UNIT SUBCUT SCH ×3 (09:09→18:32)
--- NOTE | 2017-11-23 11:40 | PN ---
Progress Note - Progress Note Date of Service: 11/23/17 SOAP: Subjective: []Patient seen OOB in chair, his family is present. His right hip pain is well controlled, he feels tired. Denies chest pain, shortness of breath, nausea and dizziness. Objective: [] Vital Signs Temp 98.2 F 11/23/17 07:30 Pulse 78 11/23/17 07:30 Resp 18 11/23/17 10:16 BP 107/58 11/23/17 07:30 Pulse Ox 96 11/23/17 07:30 Intake & Output 11/22/17 11/23/17 11/23/17 18:59 06:59 18:59 Intake Total 2720 2062 Output Total 525 775 Balance 2195 1287 Intake: IV Fluids 2500 950 LR 2500 950 IVPB 112 ABX - CEFAZOLIN 112 Oral 220 1000 Output: Dick 225 775 Residual 100 Dick 16 Fr 100 Estimated Blood Loss 200 Other: # Bowel Movements 0 Vital Signs Temp 98.2 F 11/23/17 07:30 Pulse 78 11/23/17 07:30 Resp 18 11/23/17 10:16 BP 107/58 11/23/17 07:30 Pulse Ox 96 11/23/17 07:30 Intake & Output 11/22/17 11/23/17 11/23/17 18:59 06:59 18:59 Intake Total 2720 2062 Output Total 525 775 Balance 2195 1287 Intake: IV Fluids 2500 950 LR 2500 950 IVPB 112 ABX - CEFAZOLIN 112 Oral 220 1000 Output: Dick 225 775 Residual 100 Dick 16 Fr 100 Estimated Blood Loss 200 Other: # Bowel Movements 0 General: Well appearing, NAD. Hard of hearing. A&O x 3 RLE: Dressing CDI without surrounding erythema. Thigh is soft. Able to straight leg raise, flex and extend at knee, DF/ PF. 2+ DP pulse, capillary refill less than two seconds distally. Sensation intact distally. BL LE: Calves supple and nontender without erythema, edema or palpable cords Assessment: []S/P Right hip hemiarthroplasty 11/24/17 Plan: []WBAT PT/OT - must get OOB to chair, which he has already done today Heparin as DVT prophylaxis
[2017-11-23] MEDS: Digoxin TAB* 0.125 MG PO SCH (18:31)
--- NOTE | 2017-11-23 19:24 | OP ---
DATE OF OPERATION: 11/22/17 - ROOM #339 DATE OF : 28 SURGEON: Rema Gonzalez MD SPOON MAKER: EUGENIE Jimenez. Ms. Teixeira did help throughout the procedure with preparation of the leg, wound retraction, manipulation of the hip, and wound closure. ANESTHESIOLOGIST: Dr. Porras. ANESTHESIA: Spinal. PRE-OP DIAGNOSIS: Right displaced femoral neck fracture. POST-OP DIAGNOSIS: Right displaced femoral neck fracture. OPERATIVE PROCEDURE: Right hip hemiarthroplasty. HARDWARE USED: This is uncemented Lalit total hip arthroplasty hardware. For the stem, an Accolade TMZF size 4 with a 127-degree neck. For the head, a 28+0 Lalit V40 femoral head and for the bipolar component, a 54/28. ESTIMATED BLOOD LOSS: 200 mL. COMPLICATIONS: None. SPECIMEN: Femoral head and comminuted bone sent to Pathology. BRIEF HISTORY/INDICATIONS: Mr. Pearl is an 87-year-old gentleman, who had a fall in his home on 11/19/17. He was brought to [facility] and diagnosed with a displaced femoral neck fracture. The patient had taken oral blood thinner, therefore we had to delay surgery by three days to safely perform the surgery. He was optimized preoperatively by the hospitalist and cardiac team. Due to the patient's age, minimal ambulation at baseline, and comorbidities, we decided to perform hemiarthroplasty in stead of total hip arthroplasty. Informed consent was obtained from the patient and his family. They understood the risks of surgery, included but were not limited to bleeding , infection, damage to nearby structure, continued pain, need for further surgery, intraoperative fracture, nerve palsy, hardware failure or loosening, dislocation, leg length discrepancy, stroke, heart attack, blood clot, and . He wished to proceed. INTRAOPERATIVE FINDINGS: Intraoperatively, the patient had a displaced comminuted femoral neck fracture. Acetabular wear was mild to moderate. Osteopenia was noted. DESCRIPTION OF PROCEDURE: Mr. Pearl was identified in the preanesthesia unit. His right lower extremity was marked as the correct operative side. Informed consent was signed and placed in the chart. The patient was taken to the operating room and placed under spinal anesthesia. A Dick catheter was placed. The patient was placed in a left lateral decubitus position on the peg board. All bony prominences were well padded. Right lower extremity was prepped and draped in the usual sterile fashion. Pre-op time-out was made to correctly identify the patient, side and site. Appropriate perioperative antibiotics were given within 1 hour of incision. A 10-cm posterior hip incision was made with a #10 blade and carried down to the lateral fascia layer. Lateral fascia layer was incised along skin incision. A Charnley retractor was placed. The piriformis and conjoint tendons were identified on the posterolateral femur and elevated through the electrocautery. These were tagged with #5 Ethibond. Next, the capsular flap was made carefully with electrocautery and also tagged with #5 Ethibond. Great attention was given to elevating the capsule without disrupting the labrum. Immediately, the hematoma was identified. The fascia was visible. A clean-up cut was made along the femoral neck and any comminuted bone was carefully removed. The femur was carefully retracted anteriorly. Cork screw was used to remove the femoral head, which measured 54 mm diameter. Acetabulum has some mild-to- moderate degenerative changes. Labrum was intact. A 54 trial bipolar head was placed and had excellent suction. Attention was turned to preparation of the femoral canal. The canal finder was used to enter the proximal femur. The proximal femur was sequentially broached up to a size 4, which had excellent fit and appropriate anteversion. Size 4 broach was left in place and a 127 trial was placed. A 28 posterior femoral head trial was placed with a 54 bipolar trial. The hip was reduced and taken through a range of motion. The hip was stable in all positions. Leg lengths and soft tissue tension were deemed to be appropriate. The hip was carefully dislocated. All trials were removed. The final implant chosen was an Accolade TMZF size 4 with a 127-degree neck. This was impacted into the femoral canal without difficulty. Good stability and anteversion were obtained. A 28 +0 outfit V40 femoral head was chosen. This was impacted onto the femoral neck without difficulty. Next a bipolar component 54 mm was chosen and impacted onto the femoral head. The hip was reduced and taken through a range of motion. The hip was stable in all positions. The hip was copiously irrigated with sterile saline. The previously tagged capsule and tendons were reapproximated to the posterolateral femur through 2 trochanteric drill holes. The lateral fascia layer was closed using interrupted #1 Vicryl. The rest of the incision was closed in a layered fashion using 0 and 2-0 Vicryl. The skin was closed using running 3-0 Monocryl suture and Dermabond. Sterile Adaptic, 4x4s, and paper tape were used to cover the incision. The patient's anesthesia was reversed without difficulty. He was taken to the PACU in stable condition. Intended weightbearing will be weightbearing as tolerated. Intended DVT prophylaxis will be to restart his home oral blood thinner. He will have physical therapy and posterior hip precautions. [id number]/[facility] #: [id number] [facility] HOSPITALAlina
[2017-11-24] MEDS: oxyCODONE/Acetamin 5/325 MG* TAB PO PRN (05:14)
[2017-11-24] MEDS: Heparin VIAL(*) 5000 UNITS/ML VIAL (FIVE THOUSAND) SUBCUT SCH ×3 (05:15→22:07)
[2017-11-24] MEDS ORDERED: Benzonatate CAP* 100 MG ONE (05:23)
[2017-11-24] MEDS: Benzonatate CAP* 100 MG PO PRN (05:24)
--- NOTE | 2017-11-24 07:48 | PN ---
Subjective Date of Service: 11/24/17 Interval History: Chest pain started approx 7 AM today. Patient points to one spot about 6th L rib laterally. Much cough, not unusual for him. Family History: Unchanged from Admission Social History: Unchanged from Admission Past Medical History: Unchanged from Admission Objective Active Medications: Acetaminophen (Tylenol Tab*) 650 mg PO Q6H PRN PRN Reason: FEVER/PAIN Benzonatate (Tessalon Cap*) 100 mg PO BID PRN PRN Reason: COUGH Last Admin: 11/24/17 05:24 Dose: 100 mg Dextrose (D50w Syringe 50 Ml*) 12.5 gm IV PUSH .FOR FS < 60 - SS PRN PRN Reason: FS < 60 Digoxin (Lanoxin Tab*) 0.125 mg PO DAILY@1700 [facility] Last Admin: 11/23/17 18:31 Dose: 0.125 mg Docusate Sodium (Colace Cap*) 100 mg PO DAILY PRN PRN Reason: CONSTIPATION Last Admin: 11/20/17 21:53 Dose: 100 mg Famotidine (Pepcid Tab*) 20 mg PO DAILY [facility] Last Admin: 11/23/17 07:49 Dose: 20 mg Folic Acid (Folvite Tab*) 1 mg PO DAILY [facility] Last Admin: 11/23/17 07:50 Dose: 1 mg Heparin Sodium (Porcine) (Heparin Vial(*)) 5,000 units SUBCUT Q8HR [facility] Last Admin: 11/24/17 05:15 Dose: 5,000 units Lactated Ringer's (Lactated Ringers 1000 Ml Bag*) 1,000 mls @ 100 mls/hr IV PER RATE [facility] Last Admin: 11/23/17 02:32 Dose: 100 mls/hr Insulin Human Lispro (Humalog*) 0 units SUBCUT AC [facility] PRN Reason: Protocol Last Admin: 11/23/17 18:32 Dose: 3 unit Lorazepam (Ativan Tab(*)) 0 - 6 mg PO .PER [place] PROTOCOL [facility] PRN Reason: Protocol Morphine Sulfate (Morphine Vial*) 4 mg IV Q4H PRN PRN Reason: PAIN - MILD Multivitamins/Minerals (Theragran/Minerals Tab*) 1 tab PO DAILY [facility] Last Admin: 11/23/17 07:49 Dose: 1 tab Ondansetron HCl (Zofran Odt Tab*) 4 mg SL Q6H PRN PRN Reason: NAUSEA/VOMITING Oxycodone/Acetaminophen (Percocet 5/325 Tab*) 1 tab PO Q4H PRN PRN Reason: PAIN Last Admin: 11/22/17 19:24 Dose: 1 tab Oxycodone/Acetaminophen (Percocet 5/325 Tab*) 2 tab PO Q4H PRN PRN Reason: PAIN Last Admin: 11/24/17 05:14 Dose: 2 tab Polyethylene Glycol/Electrolytes (Miralax*) 17 gm PO DAILY PRN PRN Reason: CONSTIPATION Senna (Senokot Tab*) 1 tab PO DAILY [facility] Last Admin: 11/23/17 07:49 Dose: 1 tab Thiamine HCl (Vitamin B-1 Tab*) 100 mg PO DAILY [facility] Last Admin: 11/23/17 07:50 Dose: 100 mg Vital Signs - 8 hr 11/24/17 11/24/17 11/24/17 00:13 03:33 03:37 Temperature 97.9 F 98.0 F Pulse Rate 100 111 Respiratory 24 30 Rate Blood Pressure 145/61 146/82 (mmHg) O2 Sat by Pulse 97 97 96 Oximetry 11/24/17 05:14 Temperature Pulse Rate Respiratory 20 Rate Blood Pressure (mmHg) O2 Sat by Pulse Oximetry Oxygen Devices in Use Now: Nasal Cannula Appearance: Alert, supine in bed. Looks uncomfortable. Eyes: No Scleral Icterus Respiratory: Symmetrical Chest Expansion and Respiratory Effort, Clear to Auscultation, Clear to Percussion, - - point tenderness L 6th rib reproduces his pain Cardiovascular: NL Sounds; No Murmurs; No JVD, No Edema, - - irreg Extremities: No Edema, No Clubbing, Cyanosis, - Skin: No Rash or Ulcers, No Nodules or Sclerosis, - Neurological: Alert and Oriented x 3, NL Sensation Result Diagrams: 11/22/17 05:41 11/22/17 05:41 Assess/Plan/Problems-Billing Assessment: 87 yo man with history of afib, dm, copd, and etoh abuse admitted with mechanical fall and found to have right hip fracture. - Patient Problems (1) Hip fracture, right Current Visit: Yes Status: Acute Code(s): S72.001A - FRACTURE OF UNSP PART OF NECK OF RIGHT FEMUR, INIT SNOMED Code(s): 597885081 Comment: Continue SQ heparin for DVT propylaxis. (2) Atrial fibrillation Current Visit: No Status: Acute Priority: Medium Code(s): I48.91 - UNSPECIFIED ATRIAL FIBRILLATION SNOMED Code(s): 08358269 Comment: Rate-controlled with digoxin only. apixaban on hold for OR; needs to be resumed prior to discharge [id number], will not bridge with heparin (3) COPD (chronic obstructive pulmonary disease) Current Visit: No Status: Chronic Priority: Medium Code(s): J44.9 - CHRONIC OBSTRUCTIVE PULMONARY DISEASE, UNSPECIFIED SNOMED Code(s): 92892451 Comment: on 2L NC round the clock at home, also on 2L now no evidence of exacerbation Quit smoking 21 yrs ago. (4) Diabetes Current Visit: No Status: Acute Code(s): E11.9 - TYPE 2 DIABETES MELLITUS WITHOUT COMPLICATIONS SNOMED Code(s): 26670173 Comment: Hold metformin. Lispro by SS, increase to intermediate scale /10. (5) Alcohol abuse Current Visit: Yes Status: Acute Code(s): F10.10 - ALCOHOL ABUSE, UNCOMPLICATED SNOMED Code(s): 38154635 Comment: [facility] protocol d/c'd 11/24. No signs of withdrawal. (6) Chest pain Current Visit: Yes Status: Acute Code(s): R07.9 - CHEST PAIN, UNSPECIFIED SNOMED Code(s): 35355414 Comment: Clinically this is chest wall pain, likely due to coughing. Port CXR, troponin pending. Morphine 5 mg IV q 3h PRN. Repeat troponin 12:15.
[2017-11-24] MEDS ORDERED: Morphine INJ* 10 MG/ML 1 ML CARPUJECT IV PRN (07:52)
[2017-11-24] MEDS ORDERED: Morphine INJ* 10 MG/ML 1 ML CARPUJECT ONE (07:53)
[2017-11-24] MEDS: Insulin LISPRO* 1 UNITS UNIT SUBCUT SCH ×3 (07:56→17:27)
[2017-11-24 08:02] LABS: EGFR Non-African American 106.4 (>60)
[2017-11-24 08:06] LABS: Hematocrit 37 % (42-52); Hemoglobin 12.5 g/dl (14.0-18.0); Mean Corpuscular HGB Conc 34 g/dl (31-36); Mean Corpuscular Hemoglobin 32 pg (27-31); Mean Corpuscular Volume 96 fL (80-94); Mean Platelet Volume 8.9 um3 (7.4-10.4); Platelet Count 183 10^3/ul (150-450); Red Blood Count 3.85 10^6/ul (4.0-5.4); Red Cell Distribution Width 15 % (10.5-15)
[2017-11-24] MEDS: Thiamine TAB* 100 MG TAB PO SCH (08:35)
[2017-11-24] MEDS: Multivitamins/Minerals TAB PO SCH (08:35)
[2017-11-24] MEDS: Folic Acid TAB* 1 MG PO SCH (08:35)
[2017-11-24] MEDS: Famotidine TAB* 20 MG PO SCH (08:35)
[2017-11-24] MEDS: Senna TAB PO SCH (08:35)
--- NOTE | 2017-11-24 08:42 | RAD ---
INDICATION: Acute chest pain. COMPARISON: Comparison is made with a prior study from November 19, 2017. Correlation is also made with a prior study from January 24, 2011. TECHNIQUE: A portable view of the chest was obtained. FINDINGS: Cardiac and mediastinal contours appear to be within normal limits. There is a new focal infiltrate which projects over the left midlung and at the left lung base. No pleural effusion is seen. There is a surgical suture line present laterally at the right lung base. There is a small 4 mm nodular density which projects over the right midlung which is unchanged from studies dating back to 2010 and therefore most consistent with a benign granuloma. IMPRESSION: NEW LEFT LUNG INFILTRATE MOST CONSISTENT WITH PNEUMONIA. RECOMMEND FOLLOW-UP CHEST X-RAYS TO RESOLUTION.
[2017-11-24 08:44] LABS: ABS Basophils 0 10^3/ul (0-0.2); ABS Eosinophils 0.1 10^3/ul (0-0.6); ABS Lymphocytes 1.2 10^3/ul (1.0-4.8); ABS Neutrophils 14.7 10^3/ul (1.5-7.7); ABS Nucleated RBC 0 10^3/ul; Eosinophil % 0.4 % (0-6); Lymphocyte % 6.4 % (25-47); Nucleated Red Blood Cells % 0.1
[2017-11-24] MEDS: Acetaminophen TAB* 325 MG PO PRN ×2 (11:03→20:03)
--- NOTE | 2017-11-24 11:05 | PN ---
Progress Note - Progress Note Date of Service: 11/24/17 SOAP: Subjective: []Patient seen at bedside. He reports left chest pain worse with palpation, intermittent cough. He has been seen by our medicine team this morning and is being transferred to [facility], CXR ordered, troponins ordered. Denies dizziness or nausea. Objective: [] Laboratory Last Values WBC 18.0 10^3/ul (3.5-10.8) H 11/24/17 07:39 RBC 3.85 10^6/ul (4.0-5.4) L 11/24/17 07:39 Hgb 12.5 g/dl (14.0-18.0) L 11/24/17 07:39 Hct 37 % (42-52) L 11/24/17 07:39 MCV 96 fL (80-94) H 11/24/17 07:39 MCH 32 pg (27-31) H 11/24/17 07:39 MCHC 34 g/dl (31-36) 11/24/17 07:39 RDW 15 % (10.5-15) 11/24/17 07:39 Plt Count 183 10^3/ul (150-450) 11/24/17 07:39 MPV 8.9 um3 (7.4-10.4) 11/24/17 07:39 Neut % (Auto) 81.8 % (38-83) 11/24/17 07:39 Lymph % (Auto) 6.4 % (25-47) L 11/24/17 07:39 Wilkinson % (Auto) 11.4 % (0-7) H 11/24/17 07:39 Eos % (Auto) 0.4 % (0-6) 11/24/17 07:39 Baso % (Auto) 0 % (0-2) 11/24/17 07:39 Absolute Neuts (auto) 14.7 10^3/ul (1.5-7.7) H 11/24/17 07:39 Absolute Lymphs (auto) 1.2 10^3/ul (1.0-4.8) 11/24/17 07:39 Absolute Monos (auto) 2.0 10^3/ul (0-0.8) H 11/24/17 07:39 Absolute Eos (auto) 0.1 10^3/ul (0-0.6) 11/24/17 07:39 Absolute Basos (auto) 0 10^3/ul (0-0.2) 11/24/17 07:39 Absolute Nucleated RBC 0 10^3/ul 11/24/17 07:39 Nucleated RBC % 0.1 11/24/17 07:39 INR (Anticoag Therapy) 1.02 (0.77-1.02) 11/22/17 05:41 APTT 30.4 seconds (26.0-36.3) 11/19/17 20:34 Sodium 137 mmol/L (139-145) L 11/24/17 07:39 Potassium 4.5 mmol/L (3.5-5.0) 11/24/17 07:39 Chloride 103 mmol/L (101-111) 11/24/17 07:39 Carbon Dioxide 27 mmol/L (22-32) 11/24/17 07:39 Anion Gap 7 mmol/L (2-11) 11/24/17 07:39 BUN 23 mg/dL (6-24) 11/24/17 07:39 Creatinine 0.70 mg/dL (0.67-1.17) 11/24/17 07:39 Est GFR ( Amer) 136.9 (>60) 11/24/17 07:39 Est GFR (Non-Af Amer) 106.4 (>60) 11/24/17 07:39 BUN/Creatinine Ratio 32.9 (8-20) H 11/24/17 07:39 Glucose 233 mg/dL (70-100) H 11/24/17 07:39 POC Glucose (mg/dL) 260 mg/dL (70-100) H 11/24/17 07:25 Calcium 9.1 mg/dL (8.6-10.3) 11/24/17 07:39 Magnesium 1.9 mg/dL (1.9-2.7) 11/22/17 05:41 Total Bilirubin 1.30 mg/dL (0.2-1.0) H 11/24/17 07:39 AST 15 U/L (13-39) 11/24/17 07:39 ALT 13 U/L (7-52) 11/24/17 07:39 Alkaline Phosphatase 63 U/L (34-104) 11/24/17 07:39 Troponin I 0.04 ng/mL (<0.04) H* 11/24/17 07:39 Total Protein 5.8 g/dL (6.4-8.9) L 11/24/17 07:39 Albumin 3.1 g/dL (3.2-5.2) L 11/24/17 07:39 Globulin 2.7 g/dL (2-4) 11/24/17 07:39 Albumin/Globulin Ratio 1.1 (1-3) 11/24/17 07:39 Urine Color Yellow 11/19/17 20:34 Urine Appearance Clear 11/19/17 20:34 Urine pH 5.0 (5-9) 11/19/17 20:34 Ur Specific [place] 1.006 (1.010-1.030) L 11/19/17 20:34 Urine Protein Negative (Negative) 11/19/17 20:34 Urine Ketones Negative (Negative) 11/19/17 20:34 Urine Blood Negative (Negative) 11/19/17 20:34 Urine Nitrate Negative (Negative) 11/19/17 20:34 Urine Bilirubin Negative (Negative) 11/19/17 20:34 Urine Urobilinogen Negative (Negative) 11/19/17 20:34 Ur Leukocyte Esterase Negative (Negative) 11/19/17 20:34 Urine Glucose Negative (Negative) 11/19/17 20:34 Vital Signs Temp 99.7 F 11/24/17 10:32 Pulse 115 11/24/17 10:32 Resp 20 11/24/17 10:32 BP 115/64 11/24/17 10:32 Pulse Ox 95 11/24/17 10:32 Intake & Output 11/23/17 11/24/17 11/24/17 18:59 06:59 18:59 Intake Total 1274 450 240 Output Total 275 675 0 Balance 999 -225 240 Intake: IVPB 1034 LR 1034 Oral 240 450 240 Output: Urine 325 0 Dick 275 350 Other: # Bowel Movements 0 General: Well appearing, NAD. RLE: Dressing changed. Incision CDI without surrounding erythema. Thigh is soft. DF/ PF intact. 2+ DP pulse, capillary refill less than two seconds distally. Sensation intact distally. BL LE: Calves supple and nontender without erythema, edema or palpable cords + Left sided chest wall tenderness midclavicular line 6th rib Assessment: []S/P Right hip hemiarthroplasty 11/24/17 Chest pain Infiltrate of left middle lobe/ lung base consistent with Pneumonia Plan: []WBAT PT/OT Heparin as DVT prophylaxis CTA ordered in light of tachycardia, tachypnea, recent ortho surgery, chest pain.
[2017-11-24] MEDS ORDERED: Iodixanol* (CONTRAST) 320 MG/ML 100 ML SDV IV ONE (12:07)
--- NOTE | 2017-11-24 13:17 | RAD ---
Indication: Evaluate for pulmonary embolus. Contrast: Administered 72.2 ml of VISIPAQUE 320 mg/ml CTA of the chest was performed after IV contrast administration. Coronal and sagittal reconstructed images were obtained. Pulmonary arterial tree is well opacified. There are no filling defects present to suggest pulmonary embolus. Inferior thyroid lobes are unremarkable. No hilar adenopathy is noted. The heart demonstrates no pericardial effusion. The trachea and major bronchi appear patent. There is pneumonia in the left upper lobe. There is suggestion of a left parapneumonic effusion noted. Aorta demonstrates atherosclerosis without evidence of aortic dissection. There are small prevascular space lymph nodes measuring up to 7 mm. Small AP window lymph nodes are noted measuring up to 7 mm. Subcarinal lymph nodes measuring up to 15 mm is noted. The heart demonstrates no pericardial effusion. The trachea and major bronchi appear patent. Calcified granuloma in the inferior upper lobe is noted. IMPRESSION: No definite pulmonary embolus is noted. Pneumonia in the left upper lobe with probable left sided parapneumonic effusion. Granuloma in the right upper lobe. No evidence of aortic dissection is noted.
[2017-11-24] MEDS: Docusate CAP* 100 MG PO PRN (13:35)
[2017-11-24] MEDS ORDERED: Zosyn per Pharmacy* NOTE FOLLOW UP PRN (13:58)
[2017-11-24] MEDS ORDERED: Zosyn 3.375 gm X 1 dose, then dose per Pharmacy IVPB ONE ×2 (14:00)
[2017-11-24] MEDS ORDERED: Artificial Tears* 15 ML BTL BOTH EYES PRN (14:29)
--- NOTE | 2017-11-24 15:24 | PN ---
Progress Note - Progress Note Date of Service: 11/24/17 SOAP: Subjective: [] Objective: [] Assessment: [] Plan: []
[2017-11-24] MEDS: Digoxin TAB* 0.125 MG PO SCH (17:27)
[2017-11-24] MEDS: Piperacillin/Tazobac ADVAN(*) 3.375 GM in NS 0.9% 100 ML* 100 ML IVPB SCH (17:28)
[2017-11-25] MEDS: Piperacillin/Tazobac ADVAN(*) 3.375 GM in NS 0.9% 100 ML* 100 ML IVPB SCH ×3 (02:30→17:33)
[2017-11-25] MEDS: Heparin VIAL(*) 5000 UNITS/ML VIAL (FIVE THOUSAND) SUBCUT SCH ×2 (05:19→13:30)
[2017-11-25 06:24] LABS: ABS Basophils 0 10^3/ul (0-0.2); ABS Eosinophils 0.1 10^3/ul (0-0.6); ABS Lymphocytes 1.2 10^3/ul (1.0-4.8); ABS Monocytes 1.3 10^3/ul (0-0.8); ABS Neutrophils 10.5 10^3/ul (1.5-7.7); ABS Nucleated RBC 0 10^3/ul; Eosinophil % 0.9 % (0-6); Hematocrit 36 % (42-52); Hemoglobin 12.1 g/dl (14.0-18.0); Lymphocyte % 9.3 % (25-47); Mean Corpuscular HGB Conc 34 g/dl (31-36); Mean Corpuscular Hemoglobin 33 pg (27-31); Mean Corpuscular Volume 97 fL (80-94); Mean Platelet Volume 9.3 um3 (7.4-10.4); Nucleated Red Blood Cells % 0.1; Platelet Count 192 10^3/ul (150-450); Red Blood Count 3.71 10^6/ul (4.0-5.4); Red Cell Distribution Width 15 % (10.5-15); White Blood Count 13.2 10^3/ul (3.5-10.8)
[2017-11-25] MEDS: Multivitamins/Minerals TAB PO SCH (08:21)
[2017-11-25] MEDS: Benzonatate CAP* 100 MG PO PRN (08:21)
[2017-11-25] MEDS: Famotidine TAB* 20 MG PO SCH (08:21)
[2017-11-25] MEDS: Senna TAB PO SCH (08:21)
[2017-11-25] MEDS: Insulin LISPRO* 1 UNITS UNIT SUBCUT SCH ×3 (08:21→17:28)
[2017-11-25] MEDS: Thiamine TAB* 100 MG TAB PO SCH (08:21)
[2017-11-25] MEDS: Folic Acid TAB* 1 MG PO SCH (08:21)
--- NOTE | 2017-11-25 08:27 | PN ---
Progress Note - Progress Note Date of Service: 11/25/17 SOAP: Subjective: 87 y/o male s/p R hemiarthroplasty for R hip fx by DR. Gonzalez 11/22/2017. Patient with difficulty breathing yesterday, mild improvement today, tolerating O2 well, declines pain in hip. VSS, mild tachy afebrile overnight. Objective: General- Well appearing, NAD, AO resting in bed comfortably. MSK- RLE- DF/PF = b/l, PT 2+, negative homans sign, SITLT, R hip incision c/d/i , no drainage noted, minimal erythema, no induration, redressed Vital Signs Temp 97.8 F 11/25/17 11:16 Pulse 74 11/25/17 11:16 Resp 16 11/25/17 11:16 BP 146/67 11/25/17 11:16 Pulse Ox 97 11/25/17 11:16 Intake & Output 11/24/17 11/25/17 11/25/17 18:59 06:59 18:59 Intake Total 240 920 160 Output Total 0 475 500 Balance 240 445 -340 Intake: IV Fluids 50 LR 50 IVPB 210 LR 210 Oral 240 660 160 Output: Urine 0 0 500 Dick 475 Assessment: - Stable s/p R hemiarthroplasty for R hip fx by DR. Gonzalez 11/22/2017. - HAP Plan: - HAP- ZOsyn, pulmonary toilet. CTA chest - for PE, + REGINA PNA - DVT prophylaxis- Elliquis - Continue PT/ OT - Follow up with Dr. Gonzalez within 10-14 days - H&H - Stable - post-op IV ABX - Completed - POssible PMRU tuesday Acetaminophen (Tylenol Tab*) 650 mg PO Q6H PRN PRN Reason: FEVER/PAIN Last Admin: 11/24/17 20:03 Dose: 650 mg Apixaban (Eliquis*) 2.5 mg PO BID [facility] Benzonatate (Tessalon Cap*) 100 mg PO BID PRN PRN Reason: COUGH Last Admin: 11/25/17 08:21 Dose: 100 mg Budesonide (Pulmicort Neb*) 0.5 mg INH DAILY [facility] Dextrose (D50w Syringe 50 Ml*) 12.5 gm IV PUSH .FOR FS < 60 - SS PRN PRN Reason: FS < 60 Digoxin (Lanoxin Tab*) 0.125 mg PO DAILY@1700 [facility] Last Admin: 11/24/17 17:27 Dose: 0.125 mg Docusate Sodium (Colace Cap*) 100 mg PO DAILY PRN PRN Reason: CONSTIPATION Last Admin: 11/24/17 13:35 Dose: 100 mg Famotidine (Pepcid Tab*) 20 mg PO DAILY [facility] Last Admin: 11/25/17 08:21 Dose: 20 mg Folic Acid (Folvite Tab*) 1 mg PO DAILY [facility] Last Admin: 11/25/17 08:21 Dose: 1 mg Piperacillin Sod/Tazobactam (Sod 3.375 gm/ Sodium Chloride) 100 mls @ 25 mls/ hr IVPB Q8H [facility] Last Admin: 11/25/17 10:14 Dose: 25 mls/hr Insulin Human Lispro (Humalog*) 0 units SUBCUT AC [facility] PRN Reason: Protocol Last Admin: 11/25/17 12:03 Dose: 1 units Ipratropium Cressona (Atrovent 0.5 Mg Neb.Gertrude*) 0.5 mg INH BID [facility] Morphine Sulfate (Morphine Vial*) 4 mg IV Q4H PRN PRN Reason: PAIN - MILD Morphine Sulfate (Morphine Inj (Syringe)*) 5 mg IV Q3H PRN PRN Reason: PAIN - SEVERE Multivitamins/Minerals (Theragran/Minerals Tab*) 1 tab PO DAILY [facility] Last Admin: 11/25/17 08:21 Dose: 1 tab Ondansetron HCl (Zofran Odt Tab*) 4 mg SL Q6H PRN PRN Reason: NAUSEA/VOMITING Last Admin: 11/24/17 11:04 Dose: 4 mg Oxycodone/Acetaminophen (Percocet 5/325 Tab*) 1 tab PO Q4H PRN PRN Reason: PAIN Last Admin: 11/22/17 19:24 Dose: 1 tab Oxycodone/Acetaminophen (Percocet 5/325 Tab*) 2 tab PO Q4H PRN PRN Reason: PAIN Last Admin: 11/24/17 05:14 Dose: 2 tab Pharmacy Consult (Zosyn Per Pharmacy*) 1 note FOLLOW UP . PRN PRN Reason: PER PROTOCOL Polyethylene Glycol/Electrolytes (Miralax*) 17 gm PO DAILY PRN PRN Reason: CONSTIPATION Last Admin: 11/24/17 13:34 Dose: 17 gm Polyvinyl Alcohol (Polyvinyl Alcohol 1.4% Opth*) 1 drop BOTH EYES Q2H PRN PRN Reason: DRY EYE Last Admin: 11/25/17 13:29 Dose: 1 drop Senna (Senokot Tab*) 1 tab PO DAILY [facility] Last Admin: 11/25/17 08:21 Dose: 1 tab Thiamine HCl (Vitamin B-1 Tab*) 100 mg PO DAILY [facility] Last Admin: 11/25/17 08:21 Dose: 100 mg
--- NOTE | 2017-11-25 14:05 | PN ---
Subjective Date of Service: 11/25/17 Interval History: L-sided chest pain completely gone. Little cough. No new c/o. Pt states he walked 3-4 steps today. Family History: Unchanged from Admission Social History: Unchanged from Admission Past Medical History: Unchanged from Admission Objective Active Medications: Acetaminophen (Tylenol Tab*) 650 mg PO Q6H PRN PRN Reason: FEVER/PAIN Last Admin: 11/24/17 20:03 Dose: 650 mg Benzonatate (Tessalon Cap*) 100 mg PO BID PRN PRN Reason: COUGH Last Admin: 11/25/17 08:21 Dose: 100 mg Budesonide (Pulmicort Neb*) 0.5 mg INH DAILY [facility] Dextrose (D50w Syringe 50 Ml*) 12.5 gm IV PUSH .FOR FS < 60 - SS PRN PRN Reason: FS < 60 Digoxin (Lanoxin Tab*) 0.125 mg PO DAILY@1700 [facility] Last Admin: 11/24/17 17:27 Dose: 0.125 mg Docusate Sodium (Colace Cap*) 100 mg PO DAILY PRN PRN Reason: CONSTIPATION Last Admin: 11/24/17 13:35 Dose: 100 mg Famotidine (Pepcid Tab*) 20 mg PO DAILY [facility] Last Admin: 11/25/17 08:21 Dose: 20 mg Folic Acid (Folvite Tab*) 1 mg PO DAILY [facility] Last Admin: 11/25/17 08:21 Dose: 1 mg Heparin Sodium (Porcine) (Heparin Vial(*)) 5,000 units SUBCUT Q8HR [facility] Last Admin: 11/25/17 13:30 Dose: 5,000 units Piperacillin Sod/Tazobactam (Sod 3.375 gm/ Sodium Chloride) 100 mls @ 25 mls/ hr IVPB Q8H [facility] Last Admin: 11/25/17 10:14 Dose: 25 mls/hr Insulin Human Lispro (Humalog*) 0 units SUBCUT AC [facility] PRN Reason: Protocol Last Admin: 11/25/17 12:03 Dose: 1 units Ipratropium [place] (Atrovent 0.5 Mg Neb.Gertrude*) 0.5 mg INH BID [facility] Morphine Sulfate (Morphine Vial*) 4 mg IV Q4H PRN PRN Reason: PAIN - MILD Morphine Sulfate (Morphine Inj (Syringe)*) 5 mg IV Q3H PRN PRN Reason: PAIN - SEVERE Multivitamins/Minerals (Theragran/Minerals Tab*) 1 tab PO DAILY [facility] Last Admin: 11/25/17 08:21 Dose: 1 tab Ondansetron HCl (Zofran Odt Tab*) 4 mg SL Q6H PRN PRN Reason: NAUSEA/VOMITING Last Admin: 11/24/17 11:04 Dose: 4 mg Oxycodone/Acetaminophen (Percocet 5/325 Tab*) 1 tab PO Q4H PRN PRN Reason: PAIN Last Admin: 11/22/17 19:24 Dose: 1 tab Oxycodone/Acetaminophen (Percocet 5/325 Tab*) 2 tab PO Q4H PRN PRN Reason: PAIN Last Admin: 11/24/17 05:14 Dose: 2 tab Pharmacy Consult (Zosyn Per Pharmacy*) 1 note FOLLOW UP . PRN PRN Reason: PER PROTOCOL Polyethylene Glycol/Electrolytes (Miralax*) 17 gm PO DAILY PRN PRN Reason: CONSTIPATION Last Admin: 11/24/17 13:34 Dose: 17 gm Polyvinyl Alcohol (Polyvinyl Alcohol 1.4% Opth*) 1 drop BOTH EYES Q2H PRN PRN Reason: DRY EYE Last Admin: 11/25/17 13:29 Dose: 1 drop Senna (Senokot Tab*) 1 tab PO DAILY [facility] Last Admin: 11/25/17 08:21 Dose: 1 tab Thiamine HCl (Vitamin B-1 Tab*) 100 mg PO DAILY [facility] Last Admin: 11/25/17 08:21 Dose: 100 mg Vital Signs - 8 hr 11/25/17 11/25/17 11/25/17 06:40 07:30 08:52 Temperature Pulse Rate Respiratory 20 Rate Blood Pressure (mmHg) O2 Sat by Pulse 95 92 Oximetry 11/25/17 11/25/17 09:04 11:16 Temperature 98.2 F 97.8 F Pulse Rate 112 74 Respiratory 20 16 Rate Blood Pressure 136/63 146/67 (mmHg) O2 Sat by Pulse 96 97 Oximetry Oxygen Devices in Use Now: Nasal Cannula Appearance: Alert, partly up in bed. In good spirits. Looks comfortable. Eyes: No Scleral Icterus Neck: NL Appearance and Movements; NL JVP, No Thyroid Enlargement, Masses Respiratory: Symmetrical Chest Expansion and Respiratory Effort, Clear to Auscultation, Clear to Percussion Cardiovascular: NL Sounds; No Murmurs; No JVD, RRR, No Edema, - Extremities: No Edema, No Clubbing, Cyanosis, - Skin: No Rash or Ulcers, No Nodules or Sclerosis, - Neurological: Alert and Oriented x 3, NL Sensation Result Diagrams: 11/25/17 05:55 11/24/17 07:39 Assess/Plan/Problems-Billing Assessment: 87 yo man with history of afib, dm, copd, and etoh abuse admitted with mechanical fall and found to have right hip fracture. - Patient Problems (1) Hip fracture, right Current Visit: Yes Status: Acute Code(s): S72.001A - FRACTURE OF UNSP PART OF NECK OF RIGHT FEMUR, INIT SNOMED Code(s): 345388181 Comment: Continue SQ heparin for DVT propylaxis. Accepted at [facility], consider transfer as soon as Tuesday if clinically stable, on either po or IV antibiotic. (2) Atrial fibrillation Current Visit: No Status: Acute Priority: Medium Code(s): I48.91 - UNSPECIFIED ATRIAL FIBRILLATION SNOMED Code(s): 91585245 Comment: Rate-controlled with digoxin only. Re-start apixaban 11/25 9 PM, stop SQ heparin. (3) COPD (chronic obstructive pulmonary disease) Current Visit: No Status: Chronic Priority: Medium Code(s): J44.9 - CHRONIC OBSTRUCTIVE PULMONARY DISEASE, UNSPECIFIED SNOMED Code(s): 93470654 Comment: on 2L NC round the clock at home, also on 2L now no evidence of exacerbation Quit smoking 21 yrs ago. Home ipratorpium and budesonide ordered, family to bring in his non-formulary inhaler. (4) Diabetes Current Visit: No Status: Acute Code(s): E11.9 - TYPE 2 DIABETES MELLITUS WITHOUT COMPLICATIONS SNOMED Code(s): 45030098 Comment: Hold metformin. Lispro by , continue intermediate scale, started . (5) Alcohol abuse Current Visit: Yes Status: Acute Code(s): F10.10 - ALCOHOL ABUSE, UNCOMPLICATED SNOMED Code(s): 32430317 Comment: [facility] protocol d/c'd 11/24. No signs of withdrawal. (6) Pneumonia Current Visit: Yes Status: Acute Code(s): J18.9 - PNEUMONIA, UNSPECIFIED ORGANISM SNOMED Code(s): 804154114 Comment: REGINA PNA seen both on CXR and CT. Continue pip/mychal. Temp 102.7 11/24 19:29 hrs, under 100 through 11/25 11:16 hrs.
[2017-11-25] MEDS: Digoxin TAB* 0.125 MG PO SCH (17:28)
[2017-11-25] MEDS: Apixaban* 5 MG TAB PO SCH (20:40)
[2017-11-25] MEDS: Ipratropium 0.5MG/2.5ML NEB* 0.5 MG/2.5 ML NEB.SOLN INH SCH (20:51)
[2017-11-26] MEDS: Piperacillin/Tazobac ADVAN(*) 3.375 GM in NS 0.9% 100 ML* 100 ML IVPB SCH ×3 (01:29→18:41)
[2017-11-26 06:59] LABS: Hematocrit 35 % (42-52); Hemoglobin 12.2 g/dl (14.0-18.0); Mean Corpuscular HGB Conc 35 g/dl (31-36); Mean Corpuscular Hemoglobin 33 pg (27-31); Mean Corpuscular Volume 95 fL (80-94); Mean Platelet Volume 8.7 um3 (7.4-10.4); Platelet Count 217 10^3/ul (150-450); Red Cell Distribution Width 14 % (10.5-15); White Blood Count 13.6 10^3/ul (3.5-10.8)
[2017-11-26 07:04] LABS: ABS Basophils 0 10^3/ul (0-0.2); ABS Eosinophils 0.2 10^3/ul (0-0.6); ABS Lymphocytes 1.7 10^3/ul (1.0-4.8); ABS Monocytes 1.6 10^3/ul (0-0.8); ABS Neutrophils 10.5 10^3/ul (1.5-7.7); ABS Nucleated RBC 0 10^3/ul; Eosinophil % 1.5 % (0-6); Lymphocyte % 12.1 % (25-47); Nucleated Red Blood Cells % 0
[2017-11-26 07:14] LABS: EGFR Non-African American 164.5 (>60)
[2017-11-26] MEDS: Ipratropium 0.5MG/2.5ML NEB* 0.5 MG/2.5 ML NEB.SOLN INH SCH ×2 (07:40→19:17)
[2017-11-26] MEDS: Budesonide NEB* 0.5 MG/2 ML NEB.SOLN INH SCH (07:40)
--- NOTE | 2017-11-26 08:31 | PN ---
Subjective Date of Service: 11/26/17 Interval History: No overnight events. He feels "pretty good" this morning. He has no pain, complains of a wet cough when asked but does not volunteer any complaints. He thinks he is getting better, denies chest pain, shorntess of breath, palpitations, nausea, vomiting, constipation, diarrhea. Family History: Unchanged from Admission Social History: Unchanged from Admission Past Medical History: Unchanged from Admission Objective Active Medications: Acetaminophen (Tylenol Tab*) 650 mg PO Q6H PRN PRN Reason: FEVER/PAIN Last Admin: 11/24/17 20:03 Dose: 650 mg Apixaban (Eliquis*) 2.5 mg PO BID [facility] Last Admin: 11/25/17 20:40 Dose: 2.5 mg Benzonatate (Tessalon Cap*) 100 mg PO BID PRN PRN Reason: COUGH Last Admin: 11/25/17 08:21 Dose: 100 mg Budesonide (Pulmicort Neb*) 0.5 mg INH DAILY [facility] Last Admin: 11/26/17 07:40 Dose: 0.5 mg Dextrose (D50w Syringe 50 Ml*) 12.5 gm IV PUSH .FOR FS < 60 - SS PRN PRN Reason: FS < 60 Digoxin (Lanoxin Tab*) 0.125 mg PO DAILY@1700 [facility] Last Admin: 11/25/17 17:28 Dose: 0.125 mg Docusate Sodium (Colace Cap*) 100 mg PO DAILY PRN PRN Reason: CONSTIPATION Last Admin: 11/24/17 13:35 Dose: 100 mg Famotidine (Pepcid Tab*) 20 mg PO DAILY [facility] Last Admin: 11/25/17 08:21 Dose: 20 mg Folic Acid (Folvite Tab*) 1 mg PO DAILY [facility] Last Admin: 11/25/17 08:21 Dose: 1 mg Piperacillin Sod/Tazobactam (Sod 3.375 gm/ Sodium Chloride) 100 mls @ 25 mls/ hr IVPB Q8H [facility] Last Admin: 11/26/17 01:29 Dose: 25 mls/hr Insulin Human Lispro (Humalog*) 0 units SUBCUT AC [facility] PRN Reason: Protocol Last Admin: 11/25/17 17:28 Dose: 6 units Ipratropium [place] (Atrovent 0.5 Mg Neb.Gertrude*) 0.5 mg INH BID [facility] Last Admin: 11/26/17 07:40 Dose: 0.5 mg Morphine Sulfate (Morphine Vial*) 4 mg IV Q4H PRN PRN Reason: PAIN - MILD Morphine Sulfate (Morphine Inj (Syringe)*) 5 mg IV Q3H PRN PRN Reason: PAIN - SEVERE Multivitamins/Minerals (Theragran/Minerals Tab*) 1 tab PO DAILY [facility] Last Admin: 11/25/17 08:21 Dose: 1 tab Ondansetron HCl (Zofran Odt Tab*) 4 mg SL Q6H PRN PRN Reason: NAUSEA/VOMITING Last Admin: 11/24/17 11:04 Dose: 4 mg Oxycodone/Acetaminophen (Percocet 5/325 Tab*) 1 tab PO Q4H PRN PRN Reason: PAIN Last Admin: 11/22/17 19:24 Dose: 1 tab Oxycodone/Acetaminophen (Percocet 5/325 Tab*) 2 tab PO Q4H PRN PRN Reason: PAIN Last Admin: 11/24/17 05:14 Dose: 2 tab Pharmacy Consult (Zosyn Per Pharmacy*) 1 note FOLLOW UP . PRN PRN Reason: PER PROTOCOL Polyethylene Glycol/Electrolytes (Miralax*) 17 gm PO DAILY PRN PRN Reason: CONSTIPATION Last Admin: 11/24/17 13:34 Dose: 17 gm Polyvinyl Alcohol (Polyvinyl Alcohol 1.4% Opth*) 1 drop BOTH EYES Q2H PRN PRN Reason: DRY EYE Last Admin: 11/25/17 13:29 Dose: 1 drop Senna (Senokot Tab*) 1 tab PO DAILY [facility] Last Admin: 11/25/17 08:21 Dose: 1 tab Thiamine HCl (Vitamin B-1 Tab*) 100 mg PO DAILY [facility] Last Admin: 11/25/17 08:21 Dose: 100 mg Vital Signs - 8 hr 11/26/17 11/26/17 11/26/17 01:35 03:18 07:43 Temperature 98.6 F Pulse Rate 136 57 Respiratory 18 14 20 Rate Blood Pressure 129/64 (mmHg) O2 Sat by Pulse 96 98 Oximetry 11/26/17 07:46 Temperature Pulse Rate Respiratory Rate Blood Pressure (mmHg) O2 Sat by Pulse 98 Oximetry Oxygen Devices in Use Now: Nasal Cannula Appearance: alert, oriented x 3, sleepy but awakes to voice and answers all questions appropriately, recognizes me from last week Eyes: No Scleral Icterus Neck: - - cannot see jugular veins Respiratory: - - congested cough. rhonchi left upper lung. Cardiovascular: No Edema, - - irregularly irregular Abdominal: NL Sounds; No Tenderness; No Distention, - - man catheter in place Lymphatic: No Cervical Adenopathy Extremities: No Edema, - - right hip incision clean dry, zenobia have been removed. +clubbing Neurological: Alert and Oriented x 3 Result Diagrams: 11/26/17 06:52 11/26/17 06:52 Assess/Plan/Problems-Billing Assessment: 87 yo man with history of afib, dm, copd, and etoh abuse admitted with mechanical fall and found to have right hip fracture. - Patient Problems (1) Hip fracture, right Current Visit: Yes Status: Acute Code(s): S72.001A - FRACTURE OF UNSP PART OF NECK OF RIGHT FEMUR, INIT SNOMED Code(s): 435371867 Comment: POD #4 and improving. Plan for PMRU. Strict hip precautions. (2) HAP (hospital-acquired pneumonia) Current Visit: Yes Status: Acute Code(s): J18.9 - PNEUMONIA, UNSPECIFIED ORGANISM SNOMED Code(s): 240138009 Comment: covering for pseudomonas and GNRs with pip/tazo has improved on this; check sputum culture to de-escalate abx afebrile and hemodynamically stable (3) Alcohol abuse Current Visit: Yes Status: Acute Code(s): F10.10 - ALCOHOL ABUSE, UNCOMPLICATED SNOMED Code(s): 05689564 Comment: [facility] protocol d/c'd 11/24. No signs of withdrawal. (4) Atrial fibrillation Current Visit: No Status: Acute Priority: Medium Code(s): I48.91 - UNSPECIFIED ATRIAL FIBRILLATION SNOMED Code(s): 62958408 Comment: HR recorded at 138 this morning--this is an isolated reading and on my exam, his heart rate is slower. Will follow up vitals throughout the day. Rate-controlled with digoxin only. Apixaban resumed last night. (5) Diabetes Current Visit: No Status: Acute Code(s): E11.9 - TYPE 2 DIABETES MELLITUS WITHOUT COMPLICATIONS SNOMED Code(s): 11367622 Comment: Hold metformin. Lispro by SS, continue intermediate scale, started . (6) COPD (chronic obstructive pulmonary disease) Current Visit: No Status: Chronic Priority: Medium Code(s): J44.9 - CHRONIC OBSTRUCTIVE PULMONARY DISEASE, UNSPECIFIED SNOMED Code(s): 03575778 Comment: on 2L NC nocturnally and PRN at home, on 2L here no evidence of exacerbation Quit smoking 21 yrs ago. Home ipratorpium and budesonide ordered.
[2017-11-26] MEDS ORDERED: Apixaban* 5 MG TAB PO SCH (09:00)
[2017-11-26] MEDS: Insulin LISPRO* 1 UNITS UNIT SUBCUT SCH ×3 (09:03→18:41)
[2017-11-26] MEDS: Famotidine TAB* 20 MG PO SCH (09:03)
[2017-11-26] MEDS: Thiamine TAB* 100 MG TAB PO SCH (09:03)
[2017-11-26] MEDS: Senna TAB PO SCH (09:03)
[2017-11-26] MEDS: Apixaban* 5 MG TAB PO SCH ×2 (09:03→19:58)
[2017-11-26] MEDS: Folic Acid TAB* 1 MG PO SCH (09:03)
[2017-11-26] MEDS: Multivitamins/Minerals TAB PO SCH (09:10)
--- NOTE | 2017-11-26 10:39 | PN ---
Progress Note - Progress Note Date of Service: 11/26/17 SOAP: Subjective: Pt is doing well. His pain is controlled. He is doing well with PT. Denies CP/ SOB, F/C, calf pain. Objective: PE: 87 y/o WDWN M NAD, A&O x3 RLE- dressing changed, inc c/d/i, calf soft NT, +DF/PF ankle, NVI Vital Signs Temp Pulse Resp BP Pulse Ox 99.5 F 57 20 142/71 98 11/26/17 07:36 11/26/17 07:43 11/26/17 07:43 11/26/17 07:36 11/26/17 07:46 Laboratory Results - last 24 hr 11/25/17 11/25/17 11/26/17 11:36 17:02 06:52 WBC 13.6 H RBC 3.70 L Hgb 12.2 L Hct 35 L MCV 95 H MCH 33 H MCHC 35 RDW 14 Plt Count 217 MPV 8.7 Neut % (Auto) 74.8 Lymph % (Auto) 12.1 L [place] % (Auto) 11.4 H Eos % (Auto) 1.5 Baso % (Auto) 0.2 Absolute Neuts (auto) 10.5 H Absolute Lymphs (auto) 1.7 Absolute Monos (auto) 1.6 H Absolute Eos (auto) 0.2 Absolute Basos (auto) 0 Absolute Nucleated RBC 0 Nucleated RBC % 0 Sodium Potassium Chloride Carbon Dioxide Anion Gap BUN Creatinine Est GFR ( Amer) Est GFR (Non-Af Amer) BUN/Creatinine Ratio Glucose POC Glucose (mg/dL) 132 H 296 H Calcium 11/26/17 11/26/17 06:52 07:31 WBC RBC Hgb Hct MCV MCH MCHC RDW Plt Count MPV Neut % (Auto) Lymph % (Auto) [place] % (Auto) Eos % (Auto) Baso % (Auto) Absolute Neuts (auto) Absolute Lymphs (auto) Absolute Monos (auto) Absolute Eos (auto) Absolute Basos (auto) Absolute Nucleated RBC Nucleated RBC % Sodium 135 L Potassium 4.5 Chloride 103 Carbon Dioxide 26 Anion Gap 6 BUN 16 Creatinine 0.48 L Est GFR ( Amer) 211.6 Est GFR (Non-Af Amer) 164.5 BUN/Creatinine Ratio 33.3 H Glucose 201 H POC Glucose (mg/dL) 151 H Calcium 8.8 Assessment: - Stable s/p R hemiarthroplasty for R hip fx by DR. Gonzalez 11/22/2017. - HAP Plan: - HAP- ZOsyn, pulmonary toilet. CTA chest - for PE, + REGINA PNA - DVT prophylaxis- Elliquis - Continue PT/ OT-WBAT - Follow up with Dr. Gonzalez within 10-14 days - Strict post hip precautions - Possible PMRU when medically stable
[2017-11-26] MEDS: Acetaminophen TAB* 325 MG PO PRN (16:29)
[2017-11-26] MEDS: Digoxin TAB* 0.125 MG PO SCH (18:42)
[2017-11-27] MEDS: Piperacillin/Tazobac ADVAN(*) 3.375 GM in NS 0.9% 100 ML* 100 ML IVPB SCH ×2 (02:39→10:14)
[2017-11-27 06:28] LABS: ABS Basophils 0 10^3/ul (0-0.2); ABS Eosinophils 0.4 10^3/ul (0-0.6); ABS Lymphocytes 1.9 10^3/ul (1.0-4.8); ABS Monocytes 1.4 10^3/ul (0-0.8); ABS Neutrophils 8.3 10^3/ul (1.5-7.7); ABS Nucleated RBC 0 10^3/ul; Hematocrit 38 % (42-52); Hemoglobin 12.5 g/dl (14.0-18.0); Lymphocyte % 15.9 % (25-47); Mean Corpuscular HGB Conc 33 g/dl (31-36); Mean Corpuscular Hemoglobin 32 pg (27-31); Mean Corpuscular Volume 96 fL (80-94); Mean Platelet Volume 8.2 um3 (7.4-10.4); Nucleated Red Blood Cells % 0.1; Platelet Count 260 10^3/ul (150-450); Red Blood Count 3.93 10^6/ul (4.0-5.4); Red Cell Distribution Width 15 % (10.5-15)
[2017-11-27] MEDS: Ipratropium 0.5MG/2.5ML NEB* 0.5 MG/2.5 ML NEB.SOLN INH SCH (07:18)
[2017-11-27] MEDS: Budesonide NEB* 0.5 MG/2 ML NEB.SOLN INH SCH (07:18)
[2017-11-27 07:46] VITALS: BP 151/75
[2017-11-27] MEDS: Apixaban* 5 MG TAB PO SCH (10:08)
[2017-11-27] MEDS: Folic Acid TAB* 1 MG PO SCH (10:08)
[2017-11-27] MEDS: Senna TAB PO SCH (10:08)
[2017-11-27] MEDS: Thiamine TAB* 100 MG TAB PO SCH (10:08)
[2017-11-27] MEDS: Insulin LISPRO* 1 UNITS UNIT SUBCUT SCH ×2 (10:08→13:07)
[2017-11-27] MEDS: Multivitamins/Minerals TAB PO SCH (10:08)
[2017-11-27] MEDS: Famotidine TAB* 20 MG PO SCH (10:08)
--- NOTE | 2017-11-27 14:08 | PN ---
Progress Note - Progress Note Date of Service: 11/27/17 SOAP: Subjective: Pt lying comfortably in bed. Pt doing well. No complaint of pain. Denies CP, SOB , F/C Objective: Dressing C/D/I. Calves soft, nontender. DP pulses 2+. Sensation intact to light touch distally. Vital Signs: Temp Pulse Resp BP Pulse Ox 99.3 F 29 17 151/75 100 11/27/17 07:25 11/27/17 07:25 11/27/17 07:25 11/27/17 07:25 11/27/17 07:25 Laboratory Last Values WBC 12.0 10^3/ul (3.5-10.8) H 11/27/17 06:16 RBC 3.93 10^6/ul (4.0-5.4) L 11/27/17 06:16 Hgb 12.5 g/dl (14.0-18.0) L 11/27/17 06:16 Hct 38 % (42-52) L 11/27/17 06:16 MCV 96 fL (80-94) H 11/27/17 06:16 MCH 32 pg (27-31) H 11/27/17 06:16 MCHC 33 g/dl (31-36) 11/27/17 06:16 RDW 15 % (10.5-15) 11/27/17 06:16 Plt Count 260 10^3/ul (150-450) 11/27/17 06:16 MPV 8.2 um3 (7.4-10.4) 11/27/17 06:16 Neut % (Auto) 69.2 % (38-83) 11/27/17 06:16 Lymph % (Auto) 15.9 % (25-47) L 11/27/17 06:16 [place] % (Auto) 11.5 % (0-7) H 11/27/17 06:16 Eos % (Auto) 3.0 % (0-6) 11/27/17 06:16 Baso % (Auto) 0.4 % (0-2) 11/27/17 06:16 Absolute Neuts (auto) 8.3 10^3/ul (1.5-7.7) H 11/27/17 06:16 Absolute Lymphs (auto) 1.9 10^3/ul (1.0-4.8) 11/27/17 06:16 Absolute Monos (auto) 1.4 10^3/ul (0-0.8) H 11/27/17 06:16 Absolute Eos (auto) 0.4 10^3/ul (0-0.6) 11/27/17 06:16 Absolute Basos (auto) 0 10^3/ul (0-0.2) 11/27/17 06:16 Absolute Nucleated RBC 0 10^3/ul 11/27/17 06:16 Nucleated RBC % 0.1 11/27/17 06:16 INR (Anticoag Therapy) 1.02 (0.77-1.02) 11/22/17 05:41 APTT 30.4 seconds (26.0-36.3) 11/19/17 20:34 Sodium 135 mmol/L (139-145) L 11/26/17 06:52 Potassium 4.5 mmol/L (3.5-5.0) 11/26/17 06:52 Chloride 103 mmol/L (101-111) 11/26/17 06:52 Carbon Dioxide 26 mmol/L (22-32) 11/26/17 06:52 Anion Gap 6 mmol/L (2-11) 11/26/17 06:52 BUN 16 mg/dL (6-24) 11/26/17 06:52 Creatinine 0.48 mg/dL (0.67-1.17) L 11/26/17 06:52 Est GFR ( Amer) 211.6 (>60) 11/26/17 06:52 Est GFR (Non-Af Amer) 164.5 (>60) 11/26/17 06:52 BUN/Creatinine Ratio 33.3 (8-20) H 11/26/17 06:52 Glucose 201 mg/dL (70-100) H 11/26/17 06:52 POC Glucose (mg/dL) 143 mg/dL (70-100) H 11/27/17 12:33 Calcium 8.8 mg/dL (8.6-10.3) 11/26/17 06:52 Magnesium 1.9 mg/dL (1.9-2.7) 11/22/17 05:41 Total Bilirubin 1.30 mg/dL (0.2-1.0) H 11/24/17 07:39 AST 15 U/L (13-39) 11/24/17 07:39 ALT 13 U/L (7-52) 11/24/17 07:39 Alkaline Phosphatase 63 U/L (34-104) 11/24/17 07:39 Troponin I 0.04 ng/mL (<0.04) H* 11/24/17 13:19 Total Protein 5.8 g/dL (6.4-8.9) L 11/24/17 07:39 Albumin 3.1 g/dL (3.2-5.2) L 11/24/17 07:39 Globulin 2.7 g/dL (2-4) 11/24/17 07:39 Albumin/Globulin Ratio 1.1 (1-3) 11/24/17 07:39 Urine Color Yellow 11/19/17 20:34 Urine Appearance Clear 11/19/17 20:34 Urine pH 5.0 (5-9) 11/19/17 20:34 Ur Specific [place] 1.006 (1.010-1.030) L 11/19/17 20:34 Urine Protein Negative (Negative) 11/19/17 20:34 Urine Ketones Negative (Negative) 11/19/17 20:34 Urine Blood Negative (Negative) 11/19/17 20:34 Urine Nitrate Negative (Negative) 11/19/17 20:34 Urine Bilirubin Negative (Negative) 11/19/17 20:34 Urine Urobilinogen Negative (Negative) 11/19/17 20:34 Ur Leukocyte Esterase Negative (Negative) 11/19/17 20:34 Urine Glucose Negative (Negative) 11/19/17 20:34 Assessment: 87 yo male s/p right hemiarthroplasty by Dr. Gonzalez 11/22/17 Plan: OOB PT/OT - WBAT Strict posterior hip precautions Pain control DVT prophylaxis - Elliquis Possible DC to PMRU tomorrow when medically stable
--- NOTE | 2017-11-27 21:03 | DS ---
CC: Dr. Herring; Dr. Ayala * DISCHARGE SUMMARY: DATE OF ADMISSION: 11/19/17 DATE OF DISCHARGE: 11/27/17 DISPOSITION: PMRU. PRINCIPAL DISCHARGE DIAGNOSES: 1. Right hip fracture. 2. Mechanical fall. 3. Hospital-acquired pneumonia. SECONDARY DISCHARGE DIAGNOSES: 1. Alcohol abuse. 2. Chronic hypoxic respiratory failure. 3. Diabetes. 4. Chronic obstructive pulmonary disease. 5. Atrial fibrillation. 6. Hypertension. DISCHARGE MEDICATIONS: 1. Lovastatin 40 mg q.h.s. 2. Tylenol 650 q.6 hours p.r.n. pain. 3. Digoxin 0.125 mg daily. 4. Brovana 15 mcg inhaled b.i.d. 5. HCTZ/lisinopril 12.5/20, 1 tab daily. 6. Pepcid 20 mg daily. 7. Metformin 500 mg b.i.d. 8. Eliquis 5 mg b.i.d. 9. Percocet 1 tab q.4 hours p.r.n. pain. 10. Zosyn 3.375 q.8 hours for 3 more days. PHYSICAL EXAM AT THE TIME OF DISCHARGE: Vital Signs: Temperature 99.3, heart rate 87, respiratory rate 19, pulse ox 99% on 4 L, blood pressure 151/75. General: Alert well-appearing man in no distress. He is oriented x3 with some encouragement and clues. Pupils are equal, round and reactive to light. He is edentulous. His oral mucosa is moist with no pharyngeal exudates or erythema. Neck: No JVP. No cervical or supraclavicular lymphadenopathy. Chest: Irregularly irregular rhythm. No murmurs. PMI is nondisplaced. Lungs: With a few rhonchi in the left upper lung and a prolonged expiratory phase. No wheezes are noted. A few scattered ecchymoses are noted across his chest and arms. Abdomen: Soft, nontender, and nondistended. No guarding or rebound. Extremities: Right hip incision is clean and dry. The zenobia have been removed. He has a few skin tears on his right elbow. His DP and PT pulses are 2+. Sensation is intact. HOSPITAL COURSE BY PROBLEM: 1. Right hip fracture secondary to a mechanical fall. His admission pelvis x- ray showed a displaced angulated fracture of the right femoral neck, so Orthopedic Surgery was consulted. At admission, his anticoagulation was held for 2 days and he went to the OR on 11/22/[address] Gonzalez. A right hip hemiarthroplasty was performed. He was continued on strict hip precautions and he is being discharged to [facility] for rehab. 2. Mechanical fall. Mr. Pearl reported falling on a rug. He and his family were educated about fall risks. This was his first fall and he had no loss of consciousness. 3. Postoperative delirium. Mr. Pearl did experience some confusion immediately postoperatively. There was some concern for alcohol withdrawal; however, he did not score on the WAM protocol and his delirium resolved quickly without intervention. 4. Hospital-acquired pneumonia on the morning of 11/24/17. Mr. Pearl complained of left-sided chest pain. Troponin was 0.04 and EKG was unchanged and CTA of his thorax showed a left upper lobe pneumonia. He was started on Zosyn to cover gram- negative bacteria. At the time of discharge, his sputum culture is pending. I will follow with this up, but for now he should be continued on 3 more days of Zosyn. 5. Atrial fibrillation. He was rate controlled on his home digoxin dose. We held his Eliquis preop and it was resumed on 11/25/17. He has had no bleeding complications. Dr. Ayala was consulted preoperatively, who did not recommend any change in his medical regimen. 6. Chronic hypoxic respiratory failure. He was continued on his home oxygen requirement of 2 L. On the morning of discharge, he was recorded as being on 4 L; however, before he is discharged to [facility], I will ask his nurse to wean that down to get him back to his usual dose of 2 L per minute. He can be continued on p.r.n. nebs as needed for shortness of breath or wheezing. 7. Diabetes. He was on a sliding scale here, but at discharge I am resuming his metformin. 8. Hypertension. Continue lisinopril and hydrochlorothiazide. TIME SPENT: 60 minutes were spent on this discharge summary with over 30 minutes [id number] with the patient. Please feel free to contact me with any questions or concerns about Mr. Pearl's admission or discharge. My cell phone is [phone]. [id number]/[facility] #: [id number] [facility]
== END 2017-11-27 15:10 | DRG 469 ==
LOC: ED 18:56 → SSU 21:55 → MEDTELE 11-24 10:25 → MED 11-25 22:42
PROVIDERS: ADMIT Hospitalist; ATTEND Internal Medicine
PROC: 0SRR01A Replacement of Right Hip Joint, Femoral Surface with Metal Synthetic Substitute, Uncemented, Open Approach (ICD-10-PCS; principal; 2017-11-22 08:00)
DX: S72.001A Fracture of unspecified part of neck of right femur, initial encounter for closed fracture (principal); J15.6 Pneumonia due to other Gram-negative bacteria; I48.92 Unspecified atrial flutter; J96.11 Chronic respiratory failure with hypoxia; F10.231 Alcohol dependence with withdrawal delirium; S81.011A Laceration without foreign body, right knee, initial encounter; W01.110A Fall on same level from slipping, tripping and stumbling with subsequent striking against sharp glass, initial encounter; Y93.89 Activity, other specified; Y92.000 Kitchen of unspecified non-institutional (private) residence as the place of occurrence of the external cause; E11.9 Type 2 diabetes mellitus without complications; I11.0 Hypertensive heart disease with heart failure; I50.9 Heart failure, unspecified; E78.00 Pure hypercholesterolemia, unspecified; J44.9 Chronic obstructive pulmonary disease, unspecified; M19.90 Unspecified osteoarthritis, unspecified site; Z97.4 Presence of external hearing-aid; H91.90 Unspecified hearing loss, unspecified ear; Z90.49 Acquired absence of other specified parts of digestive tract; Z83.3 Family history of diabetes mellitus; Z87.891 Personal history of nicotine dependence; S51.011A Laceration without foreign body of right elbow, initial encounter; I48.2 Chronic atrial fibrillation; Z99.81 Dependence on supplemental oxygen; Z85.118 Personal history of other malignant neoplasm of bronchus and lung; Z80.1 Family history of malignant neoplasm of trachea, bronchus and lung; Z82.49 Family history of ischemic heart disease and other diseases of the circulatory system; Z72.89 Other problems related to lifestyle; I25.10 Atherosclerotic heart disease of native coronary artery without angina pectoris; Z66 Do not resuscitate; I27.20 Pulmonary hypertension, unspecified; Z90.2 Acquired absence of lung [part of]; M13.869 Other specified arthritis, unspecified knee; S40.022A Contusion of left upper arm, initial encounter; S40.021A Contusion of right upper arm, initial encounter; M85.851 Other specified disorders of bone density and structure, right thigh; Y95 Nosocomial condition; Z79.01 Long term (current) use of anticoagulants; Z79.84 Long term (current) use of oral hypoglycemic drugs
CPT/HCPCS: 36415; 71045; 71275; 80048; 80053; 81003; 83735; 84484; 85025; 85610; 85730; 87070; 87205; 88305; 88311; 90715; 93005; 94640; 99285; A9270-GY; C1776; G8978-GP-CL; G8979-GP-CH; G8979-GP-CK; G8987-GO-CL; G8987-GO-CM; G8988-GO-CI; J0690; J1644; J2270; J2543; Q9967

== ENCOUNTER 2017-11-27 09:14 | Inpatient (IN) | payer MEDICARE ==
[2017-11-27] MEDS ORDERED: Bisacodyl SUPP* 10 MG SUPP PR PRN (09:28)
[2017-11-27] MEDS ORDERED: Al Hydrox/Mg Hydrox/Simet LIQ* 30 ML UDC PO PRN (09:28)
[2017-11-27] MEDS ORDERED: Magnesium Hydroxide LIQ* 30 ML UDC PO PRN (09:28)
[2017-11-27] MEDS ORDERED: Dextrose 50% Syringe 50 ML* 25 GM/50 ML SYRINGE IV PUSH PRN (09:42)
[2017-11-27] MEDS ORDERED: Artificial Tears* 15 ML BTL BOTH EYES PRN (09:47)
[2017-11-27] MEDS ORDERED: Polyethylene Glycol 3350* 17 GM PACKET PO PRN (09:47)
[2017-11-27] MEDS ORDERED: Benzonatate CAP* 100 MG PO PRN (09:48)
[2017-11-27] MEDS ORDERED: Zosyn per Pharmacy* NOTE FOLLOW UP SCH (10:00)
--- NOTE | 2017-11-27 13:10 | HP ---
CC: Dr. Herring; Dr. Ayala; Dr. Gonzalez REHABILITATION ADMISSION: DATE OF ADMISSION: 11/27/17 PRIMARY CARE PROVIDER: Dr. Herring. PAPER TUBE GRADER: Dr. Ayala. ORTHOPEDIC SURGEON: Dr. Gonzalez. REASON FOR ADMISSION: Right hip fracture status post hemiarthroplasty complicated by hospital-acquired pneumonia. HISTORY OF PRESENT ILLNESS: This is an 87-year-old man who on 11/19/17 tripped in his kitchen and fell at home. He was brought to [facility] and found to have a right displaced femoral neck fracture. He was seen by Dr. Gonzalez who he has also seen as an outpatient for his knee arthritis and getting injections on a regular basis for his knees. He has been on Eliquis for atrial fibrillation and preoperatively he had to have this discontinued. Because he drinks on a regular basis, he was also put on the [facility] protocol. He was seen by Dr. Ayala for cardiac clearance and then went to the OR on 11/22/17 for right hemiarthroplasty. Postoperatively, he has strict total hip precautions and he is weightbearing as tolerated. He ultimately was restarted on his Eliquis for his atrial fibrillation and DVT prophylaxis. His outpatient dose was 2.5mg b.i.d., but this was changed to 5 mg b.i.d. as it appeared that he did not meet criteria to have a reduced dose. Immediately postoperatively, he did have some delirium. He has been noted to be confused by nurses intermittently. He is hard of hearing and has hearing aids. On 11/24/17, he had chest pain. CTA showed a left upper lobe pneumonia and parapneumonic effusions. He became febrile. This has been treated with Zosyn and he has responded well to that. His white blood cell count has been coming down and his pain has resolved. He is chronically on 2 L of oxygen at home for COPD and multiple nebulizers. He has remained stable. His heart is highly irregular and although the Dynamap often registers with bradycardia or tachycardia, he seems to be quite stable in the 80s to 100s range on digoxin. For diabetes control, he has been on sliding scale insulin but he is now eating. His Dick catheter was removed yesterday and he has been urinating, although incontinent. He is also incontinent of stool. Prior to admission, his ambulation was limited by dyspnea and severe knee arthritis. He used a single point cane. He was independent with his ADLs. With occupational therapy here, he has required a total amount of assistance x2 for lower body dressing and toileting and he was using an EZ Stand. With physical therapy as recently as yesterday, he required a minimum amount of assistance for bed mobility, transfers with minimum amount of assistance and ambulated 2 feet with a minimum amount of assistance and a walker. He has been on aspiration precautions with his pneumonia and saw speech therapy. He has been put on nectar thick liquid diet with regular textures. PAST MEDICAL HISTORY: 1. COPD, on chronic O2 at home. 2. Status post wedge resection of his right lower lobe of his lung for scarring , which ended up being nonmalignant. 3. Jmb-[id number]-bkswxpkqw diabetes mellitus. 4. Atrial fibrillation, followed by Dr. Ayala, chronically on Eliquis. 5. Mild coronary artery disease by cath about 10yr ago (30% LAD stenosis). 6. Status post appendectomy. 7. Status post cholecystectomy. 8. Status post hernia repair. 9. Hypertension. 10. Knee osteoarthritis bilaterally, followed by Dr. Gonzalez with regular injections. MEDICATIONS: 1. He will be restarting metformin 500 b.i.d., home doses is 1000 mg b.i.d. 2. Famotidine 20 mg daily. 3. Eliquis 5 mg b.i.d. which is increase from his home dosage 2.5 mg b.i.d. 4. Tylenol 650 mg q. 6 hours p.r.n. pain. 5. Lovastatin 40 mg q.h.s. has been restarted or auto-substituted. 6. Digoxin 125 mcg daily. 7. Tessalon [place] 100 mg b.i.d. p.r.n. 8. Pulmicort nebulizer 0.5 mg daily. 9. Colace 100 mg b.i.d. 10. Folic acid 1 mg daily. 11. Sliding scale insulin. 12. Atrovent nebulizer 0.5 mg b.i.d. 13. Multivitamin with minerals daily. 14. Zosyn 3.375 g q. 8 hours for 3 more days at least but hospitalist will follow up. 15. MiraLAX 17 g daily p.r.n. 16. Polyvinyl alcohol ophthalmic solution 1.4% q. 2 hours p.r.n. to both eyes one drop. 17. Senna 2 tablets q.h.s. 18. Thiamine 100 mg daily. 19. On hold has been his home doses of lisinopril/hydrochlorothiazide 20/12.5 daily. ALLERGIES: No known drug allergies. FAMILY HISTORY: Mother with myocardial infarction. Father with lung cancer. SOCIAL HISTORY: He lives with his who is also his healthcare proxy. He quit smoking about 20 years ago. He has 3 to 4 cocktails daily. Their home has 4 steps to enter but has a chair lift that is inside of the garage that he uses instead of the stairs. Inside of the house is one level. 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 He retired more than 30 years ago. REVIEW OF SYSTEMS: See history of present illness and past medical history. The remainder of 13-system review is completed. No other significant findings. PHYSICAL EXAMINATION GENERAL: Well developed, well nourished, appearing stated age. MENTAL STATUS: He is alert and appropriate. He is oriented to his self, situation, and the hospital. He knows it is November 2017 but does not know the exact date. He knows he came in for a hip fracture, but does not recall the pneumonia. VITAL SIGNS: Temperature 99.3, pulse 87, respirations 17, oxygenation 97% on 2 L, blood pressure 151/75. HEENT: Normocephalic, atraumatic. Oropharynx is clear with upper dentures. He has bilateral hearing aids. Moist mucous membranes. NECK: Supple. No lymphadenopathy. LUNGS: Clear to auscultation bilaterally. HEART: Irregularly irregular. ABDOMEN: Active bowel sounds, soft, nontender, nondistended. EXTREMITIES: No clubbing, cyanosis, or edema. He has a hip abductor pillow in place while he is in bed since he cannot recall his hip precautions. MUSCULOSKELETAL: Functional range of motion of all of his major joints with limited testing of the right hip and knee. NEUROLOGIC: Cranial nerves II through XII intact. He demonstrates 5/5 strength in bilateral upper and lower extremities with limited testing of his right hip and knee due to his surgery. Sensation is intact in all 4 extremities. LABORATORY DATA: Today, his white blood cell count is 12 down from 13.6 yesterday. Hemoglobin 12.5, hematocrit 38, platelets 260. His fingersticks in the last 24 hours have ranged from 151 to 213. IMPRESSION: An 87-year-old man with right hip fracture status post hemiarthroplasty with hospital stay complicated by hospital-acquired pneumonia and acute postoperative delirium. He will be admitted to [facility], so he can return to independent living. PLAN: 1. Right hip fracture status post hemiarthroplasty. Continue his weightbearing as tolerated and hip precautions. Since he cannot recall his hip precautions at this time, continue his hip abductor pillow when he is in bed. Follow up with Dr. Gonzalez in 10 to 14 days postoperatively. 2. Hospital-acquired pneumonia. There is a sputum culture from yesterday, which is pending. He is to continue on Zosyn q. 8 hours for the time being and at least 3 more days. The hospitalist will follow up when culture results are back to determine if there should be a change in antibiotics. 3. History of alcohol use. His [facility] protocol was stopped on 11/24/17. He never had any symptoms of withdrawal. 4. Chronic atrial fibrillation. He is on Eliquis 5 mg b.i.d. and digoxin. Follow up with Dr. Ayala as needed. Of note, his Eliquis dose is higher than it was as an outpatient. 5. Hypertension. He is currently off of lisinopril and hydrochlorothiazide. This will likely need to be restarted in the near future. 6. Vcd-xvrwpwl-cifbcfvee diabetes mellitus. Continue sliding scale insulin, but restart metformin 500 b.i.d. His home dose is 1000 mg b.i.d. Consistent carbohydrate diet. Monitor fingersticks q.a.c. and q.h.s. 7. Chronic obstructive pulmonary disease. Continue with the current nebulizers and oxygen 2 L at all times. 8. Postop delirium and confusion. We will have Speech Therapy see him for cognitive evaluation. Make sure his hearing aids are in and reorient him as needed. He will need ongoing reinforcement of hip precautions. 9. DVT prophylaxis with Eliquis. 10. Advance directives. He is DNR. His is his surrogate decision maker. 11. Estimated length of stay approximately 3 weeks. [id number]/[facility] #: [id number] [facility]
[2017-11-27] MEDS: INSULIN LISPRO SUBCUT SCH ×2 (17:11→17:32)
[2017-11-27] MEDS: metFORMIN* 500 MG TAB PO SCH (17:27)
[2017-11-27] MEDS: Digoxin TAB* 0.125 MG PO SCH (17:27)
[2017-11-27] MEDS: Atorvastatin* 10 MG TAB PO SCH (17:27)
[2017-11-27] MEDS: Acetaminophen TAB* 325 MG PO PRN (17:27)
[2017-11-27] MEDS: Insulin LISPRO* 1 UNITS UNIT SUBCUT SCH ×2 (17:29→20:27)
[2017-11-27] MEDS: Piperacillin/Tazobac ADVAN(*) 3.375 GM in NS 0.9% 100 ML* 100 ML IVPB SCH (18:31)
[2017-11-27] MEDS: Ipratropium 0.5MG/2.5ML NEB* 0.5 MG/2.5 ML NEB.SOLN INH SCH (19:28)
[2017-11-27] MEDS: Senna TAB PO SCH (20:31)
[2017-11-27] MEDS: Docusate CAP* 100 MG PO SCH (20:31)
[2017-11-27] MEDS: Apixaban* 2.5 MG TAB PO SCH (20:32)
[2017-11-27] MEDS ORDERED: Apixaban* 2.5 MG TAB PO SCH (21:00)
[2017-11-28] MEDS: Acetaminophen TAB* 325 MG PO PRN ×3 (00:35→11:44)
--- NOTE | 2017-11-28 01:36 | PN ---
Progress Note Date of Service: 11/28/17 Note: AIDAN LEONE was visited after call by nursing that he was having chest pain. They had been in the room doing vitals about 10 minutes earlier and he had no concerns, but then rang his call szymanski that he was having left sided chest pain rated 8/10. He did not have therapy today. Pain is more with a deep breath. He says he has had this on and off during his stay although he has been noted to be confused at times and according to notes has denied pain on assessments the last few days. Current Medications: Active Medications Generic Name Dose Route Start Last Admin Trade Name Freq PRN Reason Stop Dose Admin Acetaminophen 650 mg 11/27/17 09:28 11/28/17 00:35 Tylenol Tab* PO 650 mg Q6H PRN Administration FEVER > 101 Al Hydrox/Mg Hydrox/Simethicone 30 ml 11/27/17 09:28 Maalox Plus* PO Q6H PRN INDIGESTION Apixaban 5 mg 11/27/17 21:00 11/27/17 20:32 Eliquis PO 5 mg BID LUIS Administration Atorvastatin Calcium 10 mg 11/27/17 17:00 11/27/17 17:27 Lipitor* PO 10 mg 1700 LUIS Administration Protocol Benzonatate 100 mg 11/27/17 09:48 Tessalon Cap* PO BID PRN COUGH Bisacodyl 10 mg 11/27/17 09:28 Dulcolax Supp* [place] DAILY PRN CONSTIPATION Budesonide 0.5 mg 11/28/17 09:00 Pulmicort Neb* INH DAILY LUIS Dextrose 12.5 gm 11/27/17 09:42 D50w Syringe 50 Ml* IV PUSH .FOR FS < 60 - SS PRN FS < 60 Digoxin 0.125 mg 11/27/17 17:00 11/27/17 17:27 Lanoxin Tab* PO 0.125 mg 1700 LUIS Administration Docusate Sodium 100 mg 11/27/17 21:00 11/27/17 20:31 Colace Cap* PO 100 mg BID LUIS Administration Famotidine 20 mg 11/28/17 09:00 Pepcid Tab* PO DAILY LUIS Folic Acid 1 mg 11/28/17 09:00 Folvite Tab* PO DAILY LUIS Piperacillin Sod/Tazobactam 100 mls @ 25 mls/hr 11/27/17 18:00 11/27/17 18:31 Sod 3.375 gm/ Sodium Chloride IVPB 25 mls/hr Q8H LUIS Administration Insulin Human Lispro 0 units 11/27/17 17:15 11/27/17 20:27 Humalog* SUBCUT Not Given ACHS [facility] Protocol Ipratropium [place] 0.5 mg 11/27/17 21:00 11/27/17 19:28 Atrovent 0.5 Mg Neb.Gertrude* INH 0.5 mg BID LUIS Administration Magnesium Hydroxide 30 ml 11/27/17 09:28 Milk Of Magnbethel Liq* PO Q6H PRN CONSTIPATION Metformin HCl 500 mg 11/27/17 17:00 11/27/17 17:27 Glucophage* PO 500 mg 0800,1700 [facility] Administration Multivitamins/Minerals 1 tab 11/28/17 09:00 Theragran/Minerals Tab* PO DAILY [facility] Pharmacy Consult 1 note 11/27/17 10:00 Zosyn Per Pharmacy* FOLLOW UP .ZOSYN PER PHARMACY [facility] Polyethylene Glycol/Electrolytes 17 gm 11/27/17 09:47 Miralax* PO DAILY PRN CONSTIPATION Polyvinyl Alcohol 1 drop 11/27/17 09:47 Polyvinyl Alcohol 1.4% Opth* BOTH EYES Q2H PRN DRY EYE Senna 2 tab 11/27/17 21:00 11/27/17 20:31 Senokot Tab* PO 2 tab BEDTIME [facility] Administration Thiamine HCl 100 mg 11/28/17 09:00 Vitamin B-1 Tab* PO DAILY [facility] Vital Signs: Vital Signs 11/27/17 11/27/17 11/27/17 15:09 15:10 16:00 Temperature 98.6 F 98.6 F Pulse Rate 75 80 Respiratory 20 20 Rate Blood Pressure 145/79 145/79 (mmHg) O2 Sat by Pulse 96 96 96 Oximetry 11/27/17 11/27/17 11/27/17 16:19 17:27 19:28 Temperature Pulse Rate 80 77 Respiratory 18 Rate Blood Pressure (mmHg) O2 Sat by Pulse 96 97 Oximetry 11/28/17 11/28/17 11/28/17 00:00 00:06 00:56 Temperature 99.3 F 98.0 F Pulse Rate 62 95 Respiratory 18 18 20 Rate Blood Pressure 124/62 (mmHg) O2 Sat by Pulse 98 98 95 Oximetry 11/28/17 00:58 Temperature Pulse Rate 65 Respiratory 20 Rate Blood Pressure 140/74 (mmHg) O2 Sat by Pulse 97 Oximetry Lab Results: Laboratory Results - last 24 hr 11/27/17 11/27/17 16:31 20:22 POC Glucose (mg/dL) 236 H 78 Exam: GEN: no acute distress. alert and appropriate. He does not look anxious or particularly uncomfortable. CV: irregularly irregular LUNGS: clear bilaterally. Pain reproduced with palpation in left lower chest wall. ABD: + bowel sounds, soft, non-tender, non-distended EXT: no edema Assessment/Plan: 87yo man with right hip fracture s/p hemiarthroplasty and hospital acquired pneumonia with left sided chest pain. #Chest pain: His presentation with pneumonia was with chest pain. The hospitalists were consulted and he has already been seen by Dr. Terry. Results are pending on CXR and labs. His EKG did not appear changed from previous studies. He has reproducible pain with palpation. Dr. Ayala's prior note reports "mild" coronary disease with 30% left main stenosis on cath about 10yr ago. He is anti-coagulated with Eliquis at this time, which was started on . He is not a reliable historian. Further work up and disposition per hospitalists pending results. 11/28/17 01:40
[2017-11-28 02:29] LABS: ABS Basophils 0 10^3/ul (0-0.2); ABS Eosinophils 0.3 10^3/ul (0-0.6); ABS Lymphocytes 2.5 10^3/ul (1.0-4.8); ABS Monocytes 1.4 10^3/ul (0-0.8); ABS Neutrophils 8.7 10^3/ul (1.5-7.7); ABS Nucleated RBC 0 10^3/ul; Eosinophil % 2.6 % (0-6); Hematocrit 42 % (42-52); Hemoglobin 13.9 g/dl (14.0-18.0); Lymphocyte % 19.3 % (25-47); Mean Corpuscular HGB Conc 33 g/dl (31-36); Mean Corpuscular Hemoglobin 32 pg (27-31); Mean Corpuscular Volume 96 fL (80-94); Mean Platelet Volume 8.4 um3 (7.4-10.4); Nucleated Red Blood Cells % 0; Platelet Count 346 10^3/ul (150-450); Red Blood Count 4.37 10^6/ul (4.0-5.4); Red Cell Distribution Width 14 % (10.5-15)
[2017-11-28] MEDS: Piperacillin/Tazobac ADVAN(*) 3.375 GM in NS 0.9% 100 ML* 100 ML IVPB SCH ×3 (02:34→18:20)
--- NOTE | 2017-11-28 06:17 | CONSULT ---
Subjective Date of Service: 11/28/17 Interval History: Hospitalist service consulted for chest pain. Patient examined around 0100 . Pt is a 87 yo male PMH COPD with chronic hypoxic respiratory failure, Afib, EtOH abuse, NIDDM, CAD (30% left main dz on C 2007, stress test 2009) just discharged 11/27 after admitted 11/19 with mechanical fall and right hip fracture for which he got right hemiarthroplasty 11/[address] Gonzalez. Hospital course complicated by chest pain 11/24 and CTA chest demonstrating left sided pneumonia. He has been on zosyn. Course complicated by delerium. On PMRU this early childhood he complained of 8/10 left sided chest stabbing pain worse with deep breaths. Bedside RN reports he had not complained of this pain earlier in the shift. On interview PT states he has had this pain for several days now. Thinks he has been in the hospital for a few weeks. Denies chest pressure. Family History: Unchanged from Admission Social History: Unchanged from Admission Past Medical History: Unchanged from Admission Review of Systems - Measurements Intake and Output: Intake and Output Last 24 Hours 11/25/17 11/26/17 11/27/17 11/28/17 06:59 06:59 06:59 06:59 Intake Total 94 Output Total 1001 Balance -907 Weight 72.575 kg Intake: IVPB 94 Zosyn 94 Oral 0 Output: Urine 1000 # Incontinent Voids 1 Other: Estimated Void Medium # Voids 1 - Review of Systems Constitutional Symptoms: Negative: Fever Dermatology: Positive: Normal HEENT: Positive: Normal Eyes: Positive: Normal Pulmonary: Positive: COPD Cardiology: Positive: Chest Pain Negative: Shortness of Breath, Palpitations Gastroenterology: Positive: Normal Neurology: Positive: Change in Memory Objective Active Medications: Acetaminophen (Tylenol Tab*) 650 mg PO Q6H PRN PRN Reason: FEVER > 101 Last Admin: 11/28/17 00:35 Dose: 650 mg Al Hydrox/Mg Hydrox/Simethicone (Maalox Plus*) 30 ml PO Q6H PRN PRN Reason: INDIGESTION Apixaban (Eliquis) 5 mg PO BID [facility] Last Admin: 11/27/17 20:32 Dose: 5 mg Atorvastatin Calcium (Lipitor*) 10 mg PO 1700 LUIS PRN Reason: Protocol Last Admin: 11/27/17 17:27 Dose: 10 mg Benzonatate (Tessalon Cap*) 100 mg PO BID PRN PRN Reason: COUGH Bisacodyl (Dulcolax Supp*) 10 mg [place] DAILY PRN PRN Reason: CONSTIPATION Budesonide (Pulmicort Neb*) 0.5 mg INH DAILY [facility] Dextrose (D50w Syringe 50 Ml*) 12.5 gm IV PUSH .FOR FS < 60 - SS PRN PRN Reason: FS < 60 Digoxin (Lanoxin Tab*) 0.125 mg PO 1700 [facility] Last Admin: 11/27/17 17:27 Dose: 0.125 mg Docusate Sodium (Colace Cap*) 100 mg PO BID [facility] Last Admin: 11/27/17 20:31 Dose: 100 mg Famotidine (Pepcid Tab*) 20 mg PO DAILY [facility] Folic Acid (Folvite Tab*) 1 mg PO DAILY [facility] Piperacillin Sod/Tazobactam (Sod 3.375 gm/ Sodium Chloride) 100 mls @ 25 mls/ hr IVPB Q8H [facility] Last Admin: 11/28/17 02:34 Dose: 25 mls/hr Insulin Human Lispro (Humalog*) 0 units SUBCUT ACHS [facility] PRN Reason: Protocol Last Admin: 11/27/17 20:27 Dose: Not Given Ipratropium [place] (Atrovent 0.5 Mg Neb.Gertrude*) 0.5 mg INH BID [facility] Last Admin: 11/27/17 19:28 Dose: 0.5 mg Magnesium Hydroxide (Milk Of Magnesia Liq*) 30 ml PO Q6H PRN PRN Reason: CONSTIPATION Metformin HCl (Glucophage*) 500 mg PO 0800,1700 [facility] Last Admin: 11/27/17 17:27 Dose: 500 mg Multivitamins/Minerals (Theragran/Minerals Tab*) 1 tab PO DAILY [facility] Pharmacy Consult (Zosyn Per Pharmacy*) 1 note FOLLOW UP .ZOSYN PER PHARMACY [facility] Polyethylene Glycol/Electrolytes (Miralax*) 17 gm PO DAILY PRN PRN Reason: CONSTIPATION Polyvinyl Alcohol (Polyvinyl Alcohol 1.4% Opth*) 1 drop BOTH EYES Q2H PRN PRN Reason: DRY EYE Senna (Senokot Tab*) 2 tab PO BEDTIME [facility] Last Admin: 11/27/17 20:31 Dose: 2 tab Thiamine HCl (Vitamin B-1 Tab*) 100 mg PO DAILY [facility]IS Vital Signs - 8 hr 11/28/17 11/28/17 11/28/17 00:00 00:06 00:30 Temperature 99.3 F Pulse Rate 62 Respiratory 18 18 20 Rate Blood Pressure 124/62 (mmHg) O2 Sat by Pulse 98 98 Oximetry 11/28/17 11/28/17 11/28/17 00:56 00:58 02:30 Temperature 98.0 F Pulse Rate 95 65 Respiratory 20 20 20 Rate Blood Pressure 140/74 (mmHg) O2 Sat by Pulse 95 97 Oximetry Oxygen Devices in Use Now: Nasal Cannula Appearance: NAD, lying in hospital bed. Ears/Nose/Mouth/Throat: NL Teeth, Lips, Gums Neck: NL Appearance and Movements; NL JVP Respiratory: - - rhonchi on left lung juarez. no wheezing. Cardiovascular: - - irregularly irregular, no m/r/g Extremities: No Edema Skin: No Rash or Ulcers Neurological: - - oriented to name but not time. Nutrition: Taking PO's Result Diagrams: 11/28/17 01:07 11/28/17 01:07 Additional Lab and Data: Laboratory Results - last 24 hr 11/27/17 11/27/17 11/28/17 16:31 20:22 01:07 WBC 13.0 H RBC 4.37 Hgb 13.9 L Hct 42 MCV 96 H MCH 32 H MCHC 33 RDW 14 Plt Count 346 MPV 8.4 Neut % (Auto) 66.9 Lymph % (Auto) 19.3 L [place] % (Auto) 11.0 H Eos % (Auto) 2.6 Baso % (Auto) 0.2 Absolute Neuts (auto) 8.7 H Absolute Lymphs (auto) 2.5 Absolute Monos (auto) 1.4 H Absolute Eos (auto) 0.3 Absolute Basos (auto) 0 Absolute Nucleated RBC 0 Nucleated RBC % 0 Sodium Potassium Chloride Carbon Dioxide Anion Gap BUN Creatinine Est GFR ( Amer) Est GFR (Non-Af Amer) BUN/Creatinine Ratio Glucose POC Glucose (mg/dL) 236 H 78 Calcium Total Bilirubin AST ALT Alkaline Phosphatase Troponin I Total Protein Albumin Globulin Albumin/Globulin Ratio 11/28/17 01:07 WBC RBC Hgb Hct MCV MCH MCHC RDW Plt Count MPV Neut % (Auto) Lymph % (Auto) [place] % (Auto) Eos % (Auto) Baso % (Auto) Absolute Neuts (auto) Absolute Lymphs (auto) Absolute Monos (auto) Absolute Eos (auto) Absolute Basos (auto) Absolute Nucleated RBC Nucleated RBC % Sodium 139 Potassium 4.7 Chloride 101 Carbon Dioxide 30 Anion Gap 8 BUN 13 Creatinine 0.64 L Est GFR ( Amer) 151.8 Est GFR (Non-Af Amer) 118.0 BUN/Creatinine Ratio 20.3 H Glucose 181 H POC Glucose (mg/dL) Calcium 9.2 Total Bilirubin 1.30 H AST 17 ALT 17 Alkaline Phosphatase 81 Troponin I 0.03 Total Protein 5.9 L Albumin 3.0 L Globulin 2.9 Albumin/Globulin Ratio 1.0 Assessment/Plan - Billing 87 yo male PMH COPD with chronic hypoxic respiratory failure, Afib, EtOH abuse, NIDDM, CAD (30% left main dz on [facility] 2007, stress test 2009) just discharged after admitted 11/19 with mechanical fall and right hip fracture for which he got right hemiarthroplasty 11/[address] Gonzalez. Course complicated by left sided pneumonia Reason for consult:Chest pain. - repeat EKG w slightly deeper TWI in V1-V2. no STEMI. PVCs, Afib, poor r-wave progression. - initial troponin 0.03, follow-up repeat troponin at 0600. - pt is a poor historian though relating this pain has been going on for days at this time. This pleuritic pain is most likely still the result of his bad left sided pneumonia. Continue zosyn and follow-up sputum cultures. Leukocytosis has improved since 11/24 though not completely resolved. - will add strep pna Urine antigen.
[2017-11-28] MEDS: Ipratropium 0.5MG/2.5ML NEB* 0.5 MG/2.5 ML NEB.SOLN INH SCH ×2 (07:32→20:32)
[2017-11-28] MEDS: Budesonide NEB* 0.5 MG/2 ML NEB.SOLN INH SCH (07:32)
--- NOTE | 2017-11-28 07:59 | RAD ---
INDICATION: Chest pain. COMPARISON: Comparison is made with a prior chest x-ray study from November 24, 2017. Correlation is made with a prior CT of the chest also from November 24, 2017. TECHNIQUE: A portable view of the chest was obtained. FINDINGS: The heart is within normal limits in size. The lungs are hyperinflated. There is a calcified nodule which projects in the right right midlung which is unchanged suggestive of old granulomatous disease. There is a relatively dense infiltrate which projects over the left upper lobe which is unchanged. There is a trace left pleural effusion, unchanged. IMPRESSION: LEFT UPPER LOBE INFILTRATE, UNCHANGED.
[2017-11-28] MEDS: Famotidine TAB* 20 MG PO SCH (08:23)
[2017-11-28] MEDS: Apixaban* 2.5 MG TAB PO SCH ×2 (08:23→21:31)
[2017-11-28] MEDS: Insulin LISPRO* 1 UNITS UNIT SUBCUT SCH ×4 (08:23→21:30)
[2017-11-28] MEDS: Docusate CAP* 100 MG PO SCH ×2 (08:23→21:30)
[2017-11-28] MEDS: Thiamine TAB* 100 MG TAB PO SCH (08:23)
[2017-11-28] MEDS: metFORMIN* 500 MG TAB PO SCH ×2 (08:23→17:16)
[2017-11-28] MEDS: Multivitamins/Minerals TAB PO SCH (08:23)
[2017-11-28] MEDS: Folic Acid TAB* 1 MG PO SCH (08:24)
--- NOTE | 2017-11-28 13:04 | PN ---
Hospitalist Progress Note Date of Service: 11/28/17 I reviewed Mr. Pearl's sputum culture. It shows yeast and normal leanne. Yeast is not typically pathogenic in pneumonia in an immunocompetent host, so there is not need to treat the yeast. No bacteria grew, likely because he had already been on antibiotics for 4 days. I would still treat this as presumed bacterial pneumonia and continue pip/tazo until 12/01.
--- NOTE | 2017-11-28 17:10 | PN ---
Progress Note Date of Service: 11/28/17 Note: AIDAN LEONE was visited. Therapy notes read and reviewed. Had an episode of chest pain this morning, later it faded. Troponin 0.03, 0.03. He does not remember similar episodes. On IV Zosyn for pneumonia until December 01. Current Medications: Active Medications Generic Name Dose Route Start Last Admin Trade Name Freq PRN Reason Stop Dose Admin Acetaminophen 650 mg 11/27/17 09:28 11/28/17 11:44 Tylenol Tab* PO 650 mg Q6H PRN Administration FEVER > 101 Al Hydrox/Mg Hydrox/Simethicone 30 ml 11/27/17 09:28 Maalox Plus* PO Q6H PRN INDIGESTION Apixaban 5 mg 11/27/17 21:00 11/28/17 08:23 Eliquis PO 5 mg BID LUIS Administration Atorvastatin Calcium 10 mg 11/27/17 17:00 11/27/17 17:27 Lipitor* PO 10 mg 1700 LUIS Administration Protocol Benzonatate 100 mg 11/27/17 09:48 Tessalon Cap* PO BID PRN COUGH Bisacodyl 10 mg 11/27/17 09:28 Dulcolax Supp* [place] DAILY PRN CONSTIPATION Budesonide 0.5 mg 11/28/17 09:00 11/28/17 07:32 Pulmicort Neb* INH 0.5 mg DAILY LUIS Administration Dextrose 12.5 gm 11/27/17 09:42 D50w Syringe 50 Ml* IV PUSH .FOR FS < 60 - SS PRN FS < 60 Digoxin 0.125 mg 11/27/17 17:00 11/27/17 17:27 Lanoxin Tab* PO 0.125 mg 1700 LUIS Administration Docusate Sodium 100 mg 11/27/17 21:00 11/28/17 08:23 Colace Cap* PO 100 mg BID LUIS Administration Famotidine 20 mg 11/28/17 09:00 11/28/17 08:23 Pepcid Tab* PO 20 mg DAILY LUIS Administration Folic Acid 1 mg 11/28/17 09:00 11/28/17 08:24 Folvite Tab* PO 1 mg DAILY LUIS Administration Piperacillin Sod/Tazobactam 100 mls @ 25 mls/hr 11/27/17 18:00 11/28/17 10:15 Sod 3.375 gm/ Sodium Chloride IVPB 25 mls/hr Q8H LUIS Administration Insulin Human Lispro 0 units 11/27/17 17:15 11/28/17 12:04 Humalog* SUBCUT Not Given ACHS [facility] Protocol Ipratropium [place] 0.5 mg 11/27/17 21:00 11/28/17 07:32 Atrovent 0.5 Mg Neb.Gertrude* INH 0.5 mg BID LUIS Administration Magnesium Hydroxide 30 ml 11/27/17 09:28 [place] Liq* PO Q6H PRN CONSTIPATION Metformin HCl 500 mg 11/27/17 17:00 11/28/17 08:23 Glucophage* PO 500 mg 0800,1700 LUIS Administration Multivitamins/Minerals 1 tab 11/28/17 09:00 11/28/17 08:23 Theragran/Minerals Tab* PO 1 tab DAILY LUIS Administration Pharmacy Consult 1 note 11/27/17 10:00 Zosyn Per Pharmacy* FOLLOW UP .ZOSYN PER PHARMACY LUIS Polyethylene Glycol/Electrolytes 17 gm 11/27/17 09:47 Miralax* PO DAILY PRN CONSTIPATION Polyvinyl Alcohol 1 drop 11/27/17 09:47 Polyvinyl Alcohol 1.4% Opth* BOTH EYES Q2H PRN DRY EYE Senna 2 tab 11/27/17 21:00 11/27/17 20:31 Senokot Tab* PO 2 tab BEDTIME LUIS Administration Thiamine HCl 100 mg 11/28/17 09:00 11/28/17 08:23 Vitamin B-1 Tab* PO 100 mg DAILY LUIS Administration Vital Signs: Vital Signs Temp Pulse Resp BP Pulse Ox 98.2 F 55 24 131/83 96 11/28/17 15:38 11/28/17 16:28 11/28/17 15:38 11/28/17 15:38 11/28/17 15:38 Lab Results: Laboratory Results - last 24 hr 11/27/17 11/28/17 11/28/17 20:22 01:07 01:07 WBC 13.0 H RBC 4.37 Hgb 13.9 L Hct 42 MCV 96 H MCH 32 H MCHC 33 RDW 14 Plt Count 346 MPV 8.4 Neut % (Auto) 66.9 Lymph % (Auto) 19.3 L [place] % (Auto) 11.0 H Eos % (Auto) 2.6 Baso % (Auto) 0.2 Absolute Neuts (auto) 8.7 H Absolute Lymphs (auto) 2.5 Absolute Monos (auto) 1.4 H Absolute Eos (auto) 0.3 Absolute Basos (auto) 0 Absolute Nucleated RBC 0 Nucleated RBC % 0 Sodium 139 Potassium 4.7 Chloride 101 Carbon Dioxide 30 Anion Gap 8 BUN 13 Creatinine 0.64 L Est GFR ( Amer) 151.8 Est GFR (Non-Af Amer) 118.0 BUN/Creatinine Ratio 20.3 H Glucose 181 H POC Glucose (mg/dL) 78 Calcium 9.2 Total Bilirubin 1.30 H AST 17 ALT 17 Alkaline Phosphatase 81 Troponin I 0.03 Total Protein 5.9 L Albumin 3.0 L Globulin 2.9 Albumin/Globulin Ratio 1.0 11/28/17 11/28/17 11/28/17 06:49 08:02 12:03 WBC RBC Hgb Hct MCV MCH MCHC RDW Plt Count MPV Neut % (Auto) Lymph % (Auto) [place] % (Auto) Eos % (Auto) Baso % (Auto) Absolute Neuts (auto) Absolute Lymphs (auto) Absolute Monos (auto) Absolute Eos (auto) Absolute Basos (auto) Absolute Nucleated RBC Nucleated RBC % Sodium Potassium Chloride Carbon Dioxide Anion Gap BUN Creatinine Est GFR ( Amer) Est GFR (Non-Af Amer) BUN/Creatinine Ratio Glucose POC Glucose (mg/dL) 222 H 121 H Calcium Total Bilirubin AST ALT Alkaline Phosphatase Troponin I 0.03 Total Protein Albumin Globulin Albumin/Globulin Ratio Exam: LUNGS: Scattered rales HEART: Irregularly irregular. S1, S2 ABDOMEN: Soft EXTREMITIES: right hip wound clean Assessment/Plan: 1. Right Hip Fracture: S/P Hemiarthroplasty. PT/OT. Follow up with Ortho 2. Chest Pain: likely from pneumonia. Had CTA 3 days ago to rule out PE. Troponin negative 3. Hospital Acquired Pneumonia: Zosyn, through 12/01 4. Atrial fibrillation: Eliquis/Dig 5. DVT Prophylaxis: Eliquis 6. Diabetes: Glucophage/SSI 7. Advanced directives: DNR. is HCP. Has MOLST 8. COPD: Oxygen/Pulmicort/Albuterol Neb 9. CAD: Pravastatin/Eliquis 11/28/17 17:15 11/28/17 17:18
[2017-11-28] MEDS: Digoxin TAB* 0.125 MG PO SCH (17:16)
[2017-11-28] MEDS: Atorvastatin* 10 MG TAB PO SCH (17:16)
[2017-11-28] MEDS: Senna TAB PO SCH (21:30)
[2017-11-29] MEDS: Piperacillin/Tazobac ADVAN(*) 3.375 GM in NS 0.9% 100 ML* 100 ML IVPB SCH ×3 (02:05→17:49)
[2017-11-29] MEDS: Acetaminophen TAB* 325 MG PO PRN (03:20)
[2017-11-29] MEDS: Ipratropium 0.5MG/2.5ML NEB* 0.5 MG/2.5 ML NEB.SOLN INH SCH ×2 (07:56→19:44)
[2017-11-29] MEDS: Budesonide NEB* 0.5 MG/2 ML NEB.SOLN INH SCH (07:57)
[2017-11-29] MEDS: metFORMIN* 500 MG TAB PO SCH ×2 (08:29→16:54)
[2017-11-29] MEDS: Apixaban* 2.5 MG TAB PO SCH (08:29)
[2017-11-29] MEDS: Insulin LISPRO* 1 UNITS UNIT SUBCUT SCH ×4 (08:29→21:34)
[2017-11-29] MEDS: Docusate CAP* 100 MG PO SCH ×2 (08:29→21:33)
[2017-11-29] MEDS: Thiamine TAB* 100 MG TAB PO SCH (08:30)
[2017-11-29] MEDS: Multivitamins/Minerals TAB PO SCH (08:30)
[2017-11-29] MEDS: Folic Acid TAB* 1 MG PO SCH (08:30)
[2017-11-29] MEDS: Famotidine TAB* 20 MG PO SCH (08:30)
--- NOTE | 2017-11-29 12:30 | PMRUTEAM ---
PMRU: Team Meeting Current Status: Nursing: Current Status Skin Deviations [Left forearm] Bruise Skin Deviations [Bilateral Arm Bruise,Skin Tear ] Skin Deviations [Buttocks] Bruise Skin Deviations [Left Leg] Bruise,Skin Tear Skin Deviations [Right Knee] Skin Tear Skin Deviations [Right Hip] Incision Skin Deviation Description [ PIV removed 11/28/17 Left forearm] Skin Deviation Description [ bruises and skin tear in various healing stages Bilateral Arm] Skin Deviation Description [ yellow brown, soft non tender Buttocks] Skin Deviation Description [ bruises and skin tear in various healing stages Left Leg] Skin Deviation Description [ scabbed Right Knee] Skin Deviation Description [ drsg in place Right Hip] Physical Therapy: Current Status Bed Mobility Assistance Mod Assist Transfer Moblility Assistance Total Assist Transfer/Bed Mobility Rolling Walker Recommended Devices Ambulation Assistance Mod Assist Ambulation Assistive Devices Rolling Walker Number of Feet Patient 20 Ambulated Stairs Assistance NT Stairs Recommended Devices Two Rails Number of Stairs 4 Occupational Therapy: Current Status Upper Body Dressing Supervision Lower Body Dressing Mod Assist Bathing Mod Assist,2 Person Assist Toileting Total Assist,2 Person Assist Toilet Transfer Total Assist,2 Person Assist Shower Transfer Total Assist,2 Person Assist Eating Ind with Adaptive Equip Rec Therapy: Current Status Summary of Assessment and RT assessment complete and pt. is aware of RT Clinical Impression services. Pt. expressed feeling tired but is very pleasant, cooperative and open to leisure visits. Treatment Goals Pt. will engage in leisure activities while on the unit. Treatment Plan Provide RT services and encourage involvement. Social Work: Current Status Discharge Plan return home with home care svs and family support Potential for Family Training pt's family are involved and supportive Anticipated Discharge Home Destination Discharge With home care svs and family support Nutrition: Current Status Monitoring full assessment planned on 12/04 per NDS protocol. Initial/tentative goals as outlined below. Speech: Current Status Assessment Patient demonstrated minimal oropharyngal dysphagia and tolerated thin luquds using compensatory strategies. Goals: Physical Therapy: Initial Goals Bed Mobility Assistance Independent Transfer Mobility Assistance Independent Transfer/Bed Mobility Rolling Walker Recommended Devices Ambulation Independent Ambulation Recommended Devices Rolling Walker Ambulation Distance 150 Stairs Assistance Contact Guard Assist Stair Recommended Devices Two Rails Number of Stairs 5 Physical Therapy: Updated Goals Transfer/Bed Mobility Rolling Walker Recommended Devices Occupational Therapy: Initial Goals Goals to be Completed in (Days 14 - 20 days ) Upper Body Bathing Routine Modified Independent with Lower Body Bathing Routine Modified Independent with Upper Body Dressing Routine Independent Lower Body Dressing Routine Modified Independent with Toilet Hygeine and Clothing Modified Independent with Management Routine Toilet Transfer Routine Modified Independent with Step-In Shower Transfer Modified Independent with Routine Functional Transfers for ADL Modified Independent with Grooming Routine Independent Feeding Routine Modified Independent with Nutrition: Goals Intervention Goals 1. adequate po intake to support lean body mass, hydration, and stable wt 2. glycemic control within inpatient parameters and without s/sx hypo- or hyperglycemia 3. achieve and maintain regular bowel pattern without constipation or diarrhea 4. skin will remain intact without s/sx breakdown [ End ] Speech: Goals Speech Goal 1 Swallowing Goal 1 Comments LTO: Pt will tolerate least restrictive diet consistencies with no clinical s/s of aspiration. Short term: Pt will tolerate 10/10 trials of thin liquids w/o clinical s/s of penetration or aspiration. Status: Progressing as expected. Patient accepted instrucion and completed oropharyngeal execises: jaw opening to improve cricoiphayngeal patency; tongue extension swallow to improve tongue base retraction; chin tuck and supraglottic swallow technique (inhale before effortful swallow) to protect airway. Patient tolerated 10/10 trials of thin liquid with spontaneous independent use of compensatory strategies. Social Work: Goals Discharge Plan return home with home care svs and family support Potential for Family Training pt's family are involved and supportive Anticipated Discharge Home Destination Discharge With home care svs and family support Care Plan: Care Plan ADL's - Improve/Maintain Start: 11/29/17 10:21 Freq: DAILY Status: Active Target: Protocol: Activity Type Activity Date Activity User E-Sign Co-Sign Detail Recorded Client Recorded Date Recorded By Document 11/29/17 10:21 [id number] 11/29/17 10:21 [id number] 11/29/17 10:21 PMRU Outcome: ADL's/ADL Transfers Orders/Interventions Occupational Therapy Evaluation & Treatment Device Yes Patient to receive OT 5x/wk for 60-120 Therex min/day Self Care Management Group Therapy UE/LE ADL's with Assist Yes ADL Transfers with Assist Yes Toileting: Transfers,Clothing Management Yes ,Hygeine w/Assist Light Kitchen/Laundry w/Assist Yes Progression Toward Outcome/Goals Progressing Outcome/Goals Met Pt. limited by difficulty breathing this date. Pt. requires extra time and effort to complete morning ADL routine. Pt. able to recall 1 out of 3 THP this date. He states he is unable to bend forward to don his sock because "my hip won't let me right now". Cardiovascular- Improve/Maintain Start: 11/27/17 17:59 Freq: DAILY Status: Active Target: Protocol: Activity Type Activity Date Activity User E-Sign Co-Sign Detail Recorded Client Recorded Date Recorded By Document 11/29/17 00:47 [id number] 11/29/17 00:49 [id number] 11/29/17 00:47 PMRU Outcome: Cardiovascular Vital Signs q Shift for 48hrs Then BID Yes Daily Weight Ordered No Current Cardiovascular Outcome/Goal Maintain/ Achieve Baseline HR, BP , Perfusion Progression Toward Outcome/Goal Progressing Communication-Improve/Maintain Start: 11/27/17 17:59 Freq: DAILY Status: Active Target: Protocol: Activity Type Activity Date Activity User E-Sign Co-Sign Detail Recorded Client Recorded Date Recorded By Document 11/29/17 00:47 [id number] 11/29/17 00:49 [id number] 11/29/17 00:47 PMRU Outcome: Communication/Cognitive Status Outcome/Goals Makes Needs Known Effectively Progression Toward Outcomes/Goals Progressing DVT Prophylaxis- Improve/Maintain Start: 11/27/17 17:59 Freq: DAILY Status: Active Target: Protocol: Activity Type Activity Date Activity User E-Sign Co-Sign Detail Recorded Client Recorded Date Recorded By Document 11/29/17 00:47 [id number] 11/29/17 00:49 [id number] 11/29/17 00:47 PMRU Outcome: DVT Prophylaxis Outcome/Goals Remains Free of DVT Free of complications from current DVT Progression Toward Outcome/Goals Progressing Education-Improve/Maintain Start: 11/27/17 17:59 Freq: DAILY Status: Active Target: Protocol: Activity Type Activity Date Activity User E-Sign Co-Sign Detail Recorded Client Recorded Date Recorded By Document 11/29/17 00:47 [id number] 11/29/17 00:49 [id number] 11/29/17 00:47 PMRU Outcome: Education Outcome/Goals Encourage Questions Progression Toward Outcome/Goals Progressing Metabolic Status- Improve/Maintain Start: 11/27/17 17:59 Freq: DAILY Status: Active Target: Protocol: Activity Type Activity Date Activity User E-Sign Co-Sign Detail Recorded Client Recorded Date Recorded By Document 11/29/17 00:47 [id number] 11/29/17 00:49 [id number] 11/29/17 00:47 PMRU Outcome: Metabolic Status Have Fingersticks Been Ordered Yes Fingerstick Order Frequency AC & HS Outcome/Goals Maintain/ Improve Metabolic Status Progression Toward Outcome/Goals Progressing Mobility- Improve/Maintain Start: 11/27/17 17:59 Freq: DAILY Status: Active Target: Protocol: Activity Type Activity Date Activity User E-Sign Co-Sign Detail Recorded Client Recorded Date Recorded By Document 11/29/17 07:40 [id number] 11/29/17 07:43 [id number] 11/29/17 07:40 PMRU Outcome: Mobility Physical Therapy Evaluation and Yes Treatment Activity OOB with Assistance Yes WBAT Yes: R LE Device Yes: front wheeled walker Assistance Yes: CGA Patient to be seen 5x/wk for 60-120 min/ Therex day for: Mobility Training Gait Training Balance Outcome/Goals Maintain/ Achieve Baseline Mobility Status Improve Mobility Status Demonstrates Proper Use of Assistive Devices Free from Complications of Immobility Progression Toward Outcome/Goals Progressing Bed Mobility Yes: Independent Transfers Yes: Ind with walker Gait x ft Yes: Ind with walker x150' W/C Mobility x ft No Up/Down Stairs Yes: Sup x5 steps with rail With HEP Yes Pain/Comfort- Improve/Maintain Start: 11/27/17 17:59 Freq: DAILY Status: Active Target: Protocol: Activity Type Activity Date Activity User E-Sign Co-Sign Detail Recorded Client Recorded Date Recorded By Document 11/29/17 00:49 [id number] 11/29/17 01:16 [id number] 11/29/17 00:49 PMRU Outcome: Pain/Comfort Outcome/Goals Achieves Acceptable Comfort/Pain Level as Determined by Patient/Condit Maintain Comfort Level Allowing Patient to Fully Participate in Rehab Progression Toward Outcome/Goals Progressing Respiratory - Improve/Maintain Start: 11/27/17 17:59 Freq: DAILY Status: Active Target: Protocol: Activity Type Activity Date Activity User E-Sign Co-Sign Detail Recorded Client Recorded Date Recorded By Document 11/29/17 00:47 [id number] 11/29/17 00:49 [id number] 11/29/17 00:47 PMRU Outcome: Respiratory Does Patient Have a Trach No Outcome/Goals Maintain/ Improve O2 Sat per MD Order Progression Toward Outcome/Goals Progressing Safety- Improve/Maintain Start: 11/27/17 17:59 Freq: DAILY Status: Active Target: Protocol: Activity Type Activity Date Activity User E-Sign Co-Sign Detail Recorded Client Recorded Date Recorded By Document 11/29/17 00:47 [id number] 11/29/17 00:49 [id number] 11/29/17 00:47 PMRU Outcome: Safety Outcome/Goals Remain Free of Injury or Harm Cooperates with Safety Measures for Least Restrictive Environment Equipment Needed Progression Toward Outcome/Goals Progressing Skin- Improve/Maintain Start: 11/27/17 17:59 Freq: DAILY Status: Active Target: Protocol: Activity Type Activity Date Activity User E-Sign Co-Sign Detail Recorded Client Recorded Date Recorded By Document 11/29/17 00:47 [id number] 11/29/17 00:49 [id number] 11/29/17 00:47 PMRU Outcome: Skin Skin Risk Level Medium Skin Orders Air Mattress Dressing Change Comments pillows Outcome/Goals Maintain/ Improve Skin Intergrity Free from Decubitus Maintain/ Improve Wound Status Progression Toward Outcome/Goals Progressing Medicine Note: Length of Stay: 3 weeks Anticipated Discharge Destination: Home Tentative Discharge Date: December 20, 2017 Discharged to: Home
[2017-11-29] MEDS: Atorvastatin* 10 MG TAB PO SCH (16:54)
[2017-11-29] MEDS: Digoxin TAB* 0.125 MG PO SCH (16:54)
--- NOTE | 2017-11-29 17:34 | PN ---
Progress Note Date of Service: 11/29/17 Note: AIDAN LEONE was visited. Therapy notes read and reviewed. He was discussed in interdisciplinary team rounds. He is making progress but has a way to go. Current Medications: Active Medications Generic Name Dose Route Start Last Admin Trade Name Freq PRN Reason Stop Dose Admin Acetaminophen 650 mg 11/27/17 09:28 11/29/17 03:20 Tylenol Tab* PO 650 mg Q6H PRN Administration FEVER > 101 Al Hydrox/Mg Hydrox/Simethicone 30 ml 11/27/17 09:28 Maalox Plus* PO Q6H PRN INDIGESTION Apixaban 5 mg 11/29/17 21:00 Eliquis* PO BID LUIS Atorvastatin Calcium 10 mg 11/27/17 17:00 11/29/17 16:54 Lipitor* PO 10 mg 1700 LUIS Administration Protocol Benzonatate 100 mg 11/27/17 09:48 Tessalon Cap* PO BID PRN COUGH Bisacodyl 10 mg 11/27/17 09:28 Dulcolax Supp* [place] DAILY PRN CONSTIPATION Budesonide 0.5 mg 11/28/17 09:00 11/29/17 07:57 Pulmicort Neb* INH 0.5 mg DAILY LUIS Administration Dextrose 12.5 gm 11/27/17 09:42 D50w Syringe 50 Ml* IV PUSH .FOR FS < 60 - SS PRN FS < 60 Digoxin 0.125 mg 11/27/17 17:00 11/29/17 16:54 Lanoxin Tab* PO 0.125 mg 1700 LUIS Administration Docusate Sodium 100 mg 11/27/17 21:00 11/29/17 08:29 Colace Cap* PO 100 mg BID LUIS Administration Famotidine 20 mg 11/28/17 09:00 11/29/17 08:30 Pepcid Tab* PO 20 mg DAILY LUIS Administration Folic Acid 1 mg 11/28/17 09:00 11/29/17 08:30 Folvite Tab* PO 1 mg DAILY LUIS Administration Piperacillin Sod/Tazobactam 100 mls @ 25 mls/hr 11/27/17 18:00 11/29/17 10:09 Sod 3.375 gm/ Sodium Chloride IVPB 12/01/17 23:59 25 mls/hr Q8H LUIS Administration Insulin Human Lispro 0 units 11/27/17 17:15 11/29/17 17:01 Humalog* SUBCUT 2 units ACHS LUIS Administration Protocol Ipratropium [place] 0.5 mg 11/27/17 21:00 11/29/17 07:56 Atrovent 0.5 Mg Neb.Gertrude* INH 0.5 mg BID LUIS Administration Magnesium Hydroxide 30 ml 11/27/17 09:28 Milk Of [place]es[place] Liq* PO Q6H PRN CONSTIPATION Metformin HCl 500 mg 11/27/17 17:00 11/29/17 16:54 Glucophage* PO 500 mg 0800,1700 LUIS Administration Multivitamins/Minerals 1 tab 11/28/17 09:00 11/29/17 08:30 Theragran/Minerals Tab* PO 1 tab DAILY LUIS Administration Pharmacy Consult 1 note 11/27/17 10:00 Zosyn Per Pharmacy* FOLLOW UP .ZOSYN PER PHARMACY [facility] Polyethylene Glycol/Electrolytes 17 gm 11/27/17 09:47 Miralax* PO DAILY PRN CONSTIPATION Polyvinyl Alcohol 1 drop 11/27/17 09:47 Polyvinyl Alcohol 1.4% Opth* BOTH EYES Q2H PRN DRY EYE Senna 2 tab 11/27/17 21:00 11/28/17 21:30 Senokot Tab* PO 2 tab BEDTIME LUIS Administration Thiamine HCl 100 mg 11/28/17 09:00 11/29/17 08:30 Vitamin B-1 Tab* PO 100 mg DAILY LUIS Administration Vital Signs: Vital Signs Temp Pulse Resp BP Pulse Ox 98.0 F 80 20 140/63 91 11/29/17 15:43 11/29/17 16:54 11/29/17 15:43 11/29/17 15:43 11/29/17 15:43 Lab Results: Laboratory Results - last 24 hr 11/28/17 11/29/17 11/29/17 20:45 07:59 12:11 POC Glucose (mg/dL) 171 H 205 H 165 H 11/29/17 16:52 POC Glucose (mg/dL) 160 H Exam: LUNGS: Scattered rales HEART: Irregularly irregular. S1, S2 ABDOMEN: Soft EXTREMITIES: right hip wound clean Assessment/Plan: 1. Right Hip Fracture: S/P Hemiarthroplasty. PT/OT. Follow up with Ortho 2. Chest Pain: None today. It was likely from pneumonia. Had CTA 4 days ago to rule out PE. Troponin negative 3. Hospital Acquired Pneumonia: Zosyn, through 12/01 4. Atrial fibrillation: Eliquis/Dig 5. DVT Prophylaxis: Eliquis 6. Diabetes: Glucophage/SSI 7. Advanced directives: DNR. is HCP. Has MOLST 8. COPD: Oxygen/Pulmicort/Albuterol Neb 9. CAD: Pravastatin/Eliquis 11/29/17 17:35
[2017-11-29] MEDS: Apixaban* 5 MG TAB PO SCH (21:33)
[2017-11-29] MEDS: Senna TAB PO SCH (21:33)
[2017-11-30] MEDS: Piperacillin/Tazobac ADVAN(*) 3.375 GM in NS 0.9% 100 ML* 100 ML IVPB SCH ×3 (03:18→18:03)
[2017-11-30] MEDS: Budesonide NEB* 0.5 MG/2 ML NEB.SOLN INH SCH (07:33)
[2017-11-30] MEDS: Ipratropium 0.5MG/2.5ML NEB* 0.5 MG/2.5 ML NEB.SOLN INH SCH ×2 (07:33→19:50)
[2017-11-30] MEDS: metFORMIN* 500 MG TAB PO SCH ×2 (08:05→17:08)
[2017-11-30] MEDS: Thiamine TAB* 100 MG TAB PO SCH (08:05)
[2017-11-30] MEDS: Apixaban* 5 MG TAB PO SCH ×2 (08:05→20:18)
[2017-11-30] MEDS: Folic Acid TAB* 1 MG PO SCH (08:06)
[2017-11-30] MEDS: Famotidine TAB* 20 MG PO SCH (08:06)
[2017-11-30] MEDS: Multivitamins/Minerals TAB PO SCH (08:06)
[2017-11-30] MEDS: Insulin LISPRO* 1 UNITS UNIT SUBCUT SCH ×4 (08:06→20:22)
[2017-11-30] MEDS: Docusate CAP* 100 MG PO SCH ×2 (08:06→20:19)
[2017-11-30] MEDS: Digoxin TAB* 0.125 MG PO SCH (17:08)
[2017-11-30] MEDS: Atorvastatin* 10 MG TAB PO SCH (17:08)
--- NOTE | 2017-11-30 17:46 | PN ---
Progress Note Date of Service: 11/30/17 Note: AIDAN LEONE was visited. Therapy notes read and reviewed. Feels and looks good. No further chest pain. Moving better Current Medications: Active Medications Generic Name Dose Route Start Last Admin Trade Name Freq PRN Reason Stop Dose Admin Acetaminophen 650 mg 11/27/17 09:28 11/29/17 03:20 Tylenol Tab* PO 650 mg Q6H PRN Administration FEVER > 101 Al Hydrox/Mg Hydrox/Simethicone 30 ml 11/27/17 09:28 Maalox Plus* PO Q6H PRN INDIGESTION Apixaban 5 mg 11/29/17 21:00 11/30/17 08:05 Eliquis* PO 5 mg BID LUIS Administration Atorvastatin Calcium 10 mg 11/27/17 17:00 11/30/17 17:08 Lipitor* PO 10 mg 1700 LUIS Administration Protocol Benzonatate 100 mg 11/27/17 09:48 Tessalon Cap* PO BID PRN COUGH Bisacodyl 10 mg 11/27/17 09:28 Dulcolax Supp* [place] DAILY PRN CONSTIPATION Budesonide 0.5 mg 11/28/17 09:00 11/30/17 07:33 Pulmicort Neb* INH 0.5 mg DAILY LUIS Administration Dextrose 12.5 gm 11/27/17 09:42 D50w Syringe 50 Ml* IV PUSH .FOR FS < 60 - SS PRN FS < 60 Digoxin 0.125 mg 11/27/17 17:00 11/30/17 17:08 Lanoxin Tab* PO 0.125 mg 1700 LUIS Administration Docusate Sodium 100 mg 11/27/17 21:00 11/30/17 08:06 Colace Cap* PO 100 mg BID LUIS Administration Famotidine 20 mg 11/28/17 09:00 11/30/17 08:06 Pepcid Tab* PO 20 mg DAILY LUIS Administration Folic Acid 1 mg 11/28/17 09:00 11/30/17 08:06 Folvite Tab* PO 1 mg DAILY LUIS Administration Piperacillin Sod/Tazobactam 100 mls @ 25 mls/hr 11/27/17 18:00 11/30/17 10:55 Sod 3.375 gm/ Sodium Chloride IVPB 12/01/17 23:59 25 mls/hr Q8H LUIS Administration Insulin Human Lispro 0 units 11/27/17 17:15 11/30/17 17:10 Humalog* SUBCUT 4 units ACHS LUIS Administration Protocol Ipratropium [place] 0.5 mg 11/27/17 21:00 11/30/17 07:33 Atrovent 0.5 Mg Neb.Gertrude* INH 0.5 mg BID LUIS Administration Magnesium Hydroxide 30 ml 11/27/17 09:28 Milk Of Magnesia Liq* PO Q6H PRN CONSTIPATION Metformin HCl 500 mg 11/27/17 17:00 11/30/17 17:08 Glucophage* PO 500 mg 0800,1700 LUIS Administration Multivitamins/Minerals 1 tab 11/28/17 09:00 11/30/17 08:06 Theragran/Minerals Tab* PO 1 tab DAILY LUIS Administration Pharmacy Consult 1 note 11/27/17 10:00 Zosyn Per Pharmacy* FOLLOW UP .ZOSYN PER PHARMACY [facility] Polyethylene Glycol/Electrolytes 17 gm 11/27/17 09:47 Miralax* PO DAILY PRN CONSTIPATION Polyvinyl Alcohol 1 drop 11/27/17 09:47 Polyvinyl Alcohol 1.4% Opth* BOTH EYES Q2H PRN DRY EYE Senna 2 tab 11/27/17 21:00 11/29/17 21:33 Senokot Tab* PO 2 tab BEDTIME LUIS Administration Thiamine HCl 100 mg 11/28/17 09:00 11/30/17 08:05 Vitamin B-1 Tab* PO 100 mg DAILY LUIS Administration Vital Signs: Vital Signs Temp Pulse Resp BP Pulse Ox 97.4 F 80 20 128/68 100 11/30/17 15:39 11/30/17 17:08 11/30/17 15:39 11/30/17 15:39 11/30/17 15:39 Lab Results: Laboratory Results - last 24 hr 11/29/17 11/30/17 11/30/17 21:04 07:31 12:10 POC Glucose (mg/dL) 233 H 218 H 172 H 11/30/17 16:45 POC Glucose (mg/dL) 208 H Exam: LUNGS: Scattered rales HEART: Irregularly irregular. S1, S2 ABDOMEN: Soft EXTREMITIES: right hip wound clean Assessment/Plan: 1. Right Hip Fracture: S/P Hemiarthroplasty. PT/OT. Follow up with Ortho 2. Hospital Acquired Pneumonia: Zosyn, through 12/01 3. Atrial fibrillation: Eliquis/Dig 4. DVT Prophylaxis: Eliquis 5. Diabetes: Glucophage/SSI 6. Advanced directives: DNR. is HCP. Has MOLST 7. COPD: Oxygen/Pulmicort/Albuterol Neb 8. CAD: Pravastatin/Eliquis 11/30/17 17:46
[2017-11-30] MEDS: Senna TAB PO SCH (20:19)
[2017-12-01] MEDS: Acetaminophen TAB* 325 MG PO PRN (01:21)
[2017-12-01] MEDS: Piperacillin/Tazobac ADVAN(*) 3.375 GM in NS 0.9% 100 ML* 100 ML IVPB SCH ×3 (01:24→17:31)
[2017-12-01] MEDS: Ipratropium 0.5MG/2.5ML NEB* 0.5 MG/2.5 ML NEB.SOLN INH SCH ×2 (08:03→20:28)
[2017-12-01] MEDS: Budesonide NEB* 0.5 MG/2 ML NEB.SOLN INH SCH (08:04)
[2017-12-01] MEDS: Insulin LISPRO* 1 UNITS UNIT SUBCUT SCH ×4 (08:08→20:49)
[2017-12-01] MEDS: Famotidine TAB* 20 MG PO SCH (08:09)
[2017-12-01] MEDS: metFORMIN* 500 MG TAB PO SCH ×2 (08:09→17:17)
[2017-12-01] MEDS: Thiamine TAB* 100 MG TAB PO SCH (08:09)
[2017-12-01] MEDS: Multivitamins/Minerals TAB PO SCH (08:09)
[2017-12-01] MEDS: Apixaban* 5 MG TAB PO SCH ×2 (08:09→19:45)
[2017-12-01] MEDS: Docusate CAP* 100 MG PO SCH (08:09)
[2017-12-01] MEDS: Folic Acid TAB* 1 MG PO SCH (08:09)
[2017-12-01] MEDS ORDERED: Docusate CAP* 100 MG PO PRN (16:32)
--- NOTE | 2017-12-01 17:13 | PN ---
Progress Note Date of Service: 12/01/17 Note: AIDAN LEONE was visited. Therapy notes read and reviewed. He is finishing up his course of Zosyn. Moving a little better. Will change Colace to PRN as stools are loose from antibiotic Current Medications: Active Medications Generic Name Dose Route Start Last Admin Trade Name Freq PRN Reason Stop Dose Admin Acetaminophen 650 mg 11/27/17 09:28 12/01/17 01:21 Tylenol Tab* PO 650 mg Q6H PRN Administration FEVER > 101 Al Hydrox/Mg Hydrox/Simethicone 30 ml 11/27/17 09:28 Maalox Plus* PO Q6H PRN INDIGESTION Apixaban 5 mg 11/29/17 21:00 12/01/17 08:09 Eliquis* PO 5 mg BID LUIS Administration Atorvastatin Calcium 10 mg 11/27/17 17:00 11/30/17 17:08 Lipitor* PO 10 mg 1700 LUIS Administration Protocol Benzonatate 100 mg 11/27/17 09:48 Tessalon Cap* PO BID PRN COUGH Bisacodyl 10 mg 11/27/17 09:28 Dulcolax Supp* [place] DAILY PRN CONSTIPATION Budesonide 0.5 mg 11/28/17 09:00 12/01/17 08:04 Pulmicort Neb* INH 0.5 mg DAILY LUIS Administration Dextrose 12.5 gm 11/27/17 09:42 D50w Syringe 50 Ml* IV PUSH .FOR FS < 60 - SS PRN FS < 60 Digoxin 0.125 mg 11/27/17 17:00 11/30/17 17:08 Lanoxin Tab* PO 0.125 mg 1700 LUIS Administration Docusate Sodium 100 mg 12/01/17 16:32 Colace Cap* PO BID PRN CONSTIPATION Famotidine 20 mg 11/28/17 09:00 12/01/17 08:09 Pepcid Tab* PO 20 mg DAILY LUIS Administration Folic Acid 1 mg 11/28/17 09:00 12/01/17 08:09 Folvite Tab* PO 1 mg DAILY LUIS Administration Piperacillin Sod/Tazobactam 100 mls @ 25 mls/hr 11/27/17 18:00 12/01/17 11:17 Sod 3.375 gm/ Sodium Chloride IVPB 12/01/17 23:59 25 mls/hr Q8H LUIS Administration Insulin Human Lispro 0 units 11/27/17 17:15 12/01/17 12:25 Humalog* SUBCUT 4 units ACHS LUIS Administration Protocol Ipratropium [place] 0.5 mg 11/27/17 21:00 12/01/17 08:03 Atrovent 0.5 Mg Neb.Gertrude* INH 0.5 mg BID LUIS Administration Magnesium Hydroxide 30 ml 11/27/17 09:28 Milk Of Magnesia Liq* PO Q6H PRN CONSTIPATION Metformin HCl 500 mg 11/27/17 17:00 12/01/17 08:09 Glucophage* PO 500 mg 0800,1700 LUIS Administration Multivitamins/Minerals 1 tab 11/28/17 09:00 12/01/17 08:09 Theragran/Minerals Tab* PO 1 tab DAILY LUIS Administration Pharmacy Consult 1 note 11/27/17 10:00 Zosyn Per Pharmacy* FOLLOW UP .ZOSYN PER PHARMACY LUIS Polyethylene Glycol/Electrolytes 17 gm 11/27/17 09:47 Miralax* PO DAILY PRN CONSTIPATION Polyvinyl Alcohol 1 drop 11/27/17 09:47 Polyvinyl Alcohol 1.4% Opth* BOTH EYES Q2H PRN DRY EYE Senna 2 tab 11/27/17 21:00 11/30/17 20:19 Senokot Tab* PO 2 tab BEDTIME LUIS Administration Thiamine HCl 100 mg 11/28/17 09:00 12/01/17 08:09 Vitamin B-1 Tab* PO 100 mg DAILY LUIS Administration Vital Signs: Vital Signs Temp Pulse Resp BP Pulse Ox 98.2 F 65 18 121/80 96 12/01/17 04:50 12/01/17 08:07 12/01/17 08:07 12/01/17 04:50 12/01/17 04:50 Lab Results: Laboratory Results - last 24 hr 11/30/17 12/01/17 12/01/17 20:21 07:59 12:08 POC Glucose (mg/dL) 115 H 171 H 209 H 12/01/17 16:23 POC Glucose (mg/dL) 178 H Exam: LUNGS: Scattered rales HEART: Irregularly irregular. S1, S2 ABDOMEN: Soft EXTREMITIES: right hip wound clean Assessment/Plan: 1. Right Hip Fracture: S/P Hemiarthroplasty. PT/OT. Follow up with Ortho 2. Hospital Acquired Pneumonia: Zosyn, through tonight 3. Atrial fibrillation: Eliquis/Dig 4. DVT Prophylaxis: Eliquis 5. Diabetes: Glucophage/SSI 6. Advanced directives: DNR. is HCP. Has MOLST 7. COPD: Oxygen/Pulmicort/Albuterol Neb 8. CAD: Pravastatin/Eliquis 12/01/17 17:14
[2017-12-01] MEDS: Digoxin TAB* 0.125 MG PO SCH (17:18)
[2017-12-01] MEDS: Atorvastatin* 10 MG TAB PO SCH (17:18)
[2017-12-01] MEDS: Senna TAB PO SCH (19:43)
[2017-12-02] MEDS: Thiamine TAB* 100 MG TAB PO SCH (08:09)
[2017-12-02] MEDS: Folic Acid TAB* 1 MG PO SCH (08:09)
[2017-12-02] MEDS: Famotidine TAB* 20 MG PO SCH (08:09)
[2017-12-02] MEDS: Multivitamins/Minerals TAB PO SCH (08:09)
[2017-12-02] MEDS: metFORMIN* 500 MG TAB PO SCH ×2 (08:10→16:54)
[2017-12-02] MEDS: Insulin LISPRO* 1 UNITS UNIT SUBCUT SCH ×4 (08:10→21:27)
[2017-12-02] MEDS: Apixaban* 5 MG TAB PO SCH ×2 (08:10→20:03)
[2017-12-02] MEDS: Budesonide NEB* 0.5 MG/2 ML NEB.SOLN INH SCH (09:28)
[2017-12-02] MEDS: Ipratropium 0.5MG/2.5ML NEB* 0.5 MG/2.5 ML NEB.SOLN INH SCH ×2 (09:28→21:40)
[2017-12-02] MEDS: Atorvastatin* 10 MG TAB PO SCH (16:54)
[2017-12-02] MEDS: Digoxin TAB* 0.125 MG PO SCH (16:54)
--- NOTE | 2017-12-02 17:13 | PN ---
Progress Note Date of Service: 12/02/17 Note: AIDAN LEONE was visited. Therapy notes read and reviewed. He is improving in his transfers but still requires some assistance. Gait is slower to improve. Current Medications: Active Medications Generic Name Dose Route Start Last Admin Trade Name Freq PRN Reason Stop Dose Admin Acetaminophen 650 mg 11/27/17 09:28 12/01/17 01:21 Tylenol Tab* PO 650 mg Q6H PRN Administration FEVER > 101 Al Hydrox/Mg Hydrox/Simethicone 30 ml 11/27/17 09:28 Maalox Plus* PO Q6H PRN INDIGESTION Apixaban 5 mg 11/29/17 21:00 12/02/17 08:10 Eliquis* PO 5 mg BID LUIS Administration Atorvastatin Calcium 10 mg 11/27/17 17:00 12/02/17 16:54 Lipitor* PO 10 mg 1700 LUIS Administration Protocol Benzonatate 100 mg 11/27/17 09:48 Tessalon Cap* PO BID PRN COUGH Bisacodyl 10 mg 11/27/17 09:28 Dulcolax Supp* [place] DAILY PRN CONSTIPATION Budesonide 0.5 mg 11/28/17 09:00 12/02/17 09:28 Pulmicort Neb* INH 0.5 mg DAILY LUIS Administration Dextrose 12.5 gm 11/27/17 09:42 D50w Syringe 50 Ml* IV PUSH .FOR FS < 60 - SS PRN FS < 60 Digoxin 0.125 mg 11/27/17 17:00 12/02/17 16:54 Lanoxin Tab* PO 0.125 mg 1700 LUIS Administration Docusate Sodium 100 mg 12/01/17 16:32 Colace Cap* PO BID PRN CONSTIPATION Famotidine 20 mg 11/28/17 09:00 12/02/17 08:09 Pepcid Tab* PO 20 mg DAILY LUIS Administration Folic Acid 1 mg 11/28/17 09:00 12/02/17 08:09 Folvite Tab* PO 1 mg DAILY LUIS Administration Insulin Human Lispro 0 units 11/27/17 17:15 12/02/17 11:30 Humalog* SUBCUT 2 units ACHS LUIS Administration Protocol Ipratropium [place] 0.5 mg 11/27/17 21:00 12/02/17 09:28 Atrovent 0.5 Mg Neb.Gertrude* INH 0.5 mg BID LUIS Administration Magnesium Hydroxide 30 ml 11/27/17 09:28 Milk Of Magnbethel Liq* PO Q6H PRN CONSTIPATION Metformin HCl 500 mg 11/27/17 17:00 12/02/17 16:54 Glucophage* PO 500 mg 0800,1700 LUIS Administration Multivitamins/Minerals 1 tab 11/28/17 09:00 12/02/17 08:09 Theragran/Minerals Tab* PO 1 tab DAILY LUIS Administration Pharmacy Consult 1 note 11/27/17 10:00 Zosyn Per Pharmacy* FOLLOW UP .ZOSYN PER PHARMACY LUIS Polyethylene Glycol/Electrolytes 17 gm 11/27/17 09:47 Miralax* PO DAILY PRN CONSTIPATION Polyvinyl Alcohol 1 drop 11/27/17 09:47 Polyvinyl Alcohol 1.4% Opth* BOTH EYES Q2H PRN DRY EYE Senna 2 tab 11/27/17 21:00 12/01/17 19:43 Senokot Tab* PO Not Given BEDTIME LUIS Thiamine HCl 100 mg 11/28/17 09:00 12/02/17 08:09 Vitamin B-1 Tab* PO 100 mg DAILY LUIS Administration Vital Signs: Vital Signs Temp Pulse Resp BP Pulse Ox 98.5 F 76 30 126/61 97 12/02/17 15:39 12/02/17 16:54 12/02/17 15:39 12/02/17 15:39 12/02/17 15:39 Lab Results: Laboratory Results - last 24 hr 12/01/17 12/02/17 12/02/17 20:24 07:59 11:59 POC Glucose (mg/dL) 210 H 130 H 163 H 12/02/17 16:38 POC Glucose (mg/dL) 213 H Exam: LUNGS: Scarce rales HEART: Irregularly irregular. S1, S2 ABDOMEN: Soft EXTREMITIES: right hip wound clean Assessment/Plan: 1. Right Hip Fracture: S/P Hemiarthroplasty. PT/OT. Follow up with Ortho 2. Hospital Acquired Pneumonia: Zosyn finished 3. Atrial fibrillation: Eliquis/Dig 4. DVT Prophylaxis: Eliquis 5. Diabetes: Glucophage/SSI 6. Advanced directives: DNR. is HCP. Has MOLST 7. COPD: Oxygen/Pulmicort/Albuterol Neb 8. CAD: Pravastatin/Eliquis 12/02/17 17:15
[2017-12-02] MEDS: Senna TAB PO SCH (19:44)
[2017-12-03] MEDS: metFORMIN* 500 MG TAB PO SCH ×2 (07:38→18:05)
[2017-12-03] MEDS: Apixaban* 5 MG TAB PO SCH ×2 (08:05→20:10)
[2017-12-03] MEDS: Multivitamins/Minerals TAB PO SCH (08:05)
[2017-12-03] MEDS: Thiamine TAB* 100 MG TAB PO SCH (08:05)
[2017-12-03] MEDS: Ipratropium 0.5MG/2.5ML NEB* 0.5 MG/2.5 ML NEB.SOLN INH SCH ×3 (08:05→19:03)
[2017-12-03] MEDS: Famotidine TAB* 20 MG PO SCH (08:05)
[2017-12-03] MEDS: Insulin LISPRO* 1 UNITS UNIT SUBCUT SCH ×4 (08:05→20:21)
[2017-12-03] MEDS: Folic Acid TAB* 1 MG PO SCH (08:05)
[2017-12-03] MEDS: Budesonide NEB* 0.5 MG/2 ML NEB.SOLN INH SCH (08:06)
--- NOTE | 2017-12-03 08:49 | PN ---
Progress Note Date of Service: 12/03/17 Note: AIDAN LEONE was visited. Nursing and therapy notes read and reviewed. He is breathing easy now. Gaps in memory persist, but this is not new Current Medications: Active Medications Generic Name Dose Route Start Last Admin Trade Name Freq PRN Reason Stop Dose Admin Acetaminophen 650 mg 11/27/17 09:28 12/01/17 01:21 Tylenol Tab* PO 650 mg Q6H PRN Administration FEVER > 101 Al Hydrox/Mg Hydrox/Simethicone 30 ml 11/27/17 09:28 Maalox Plus* PO Q6H PRN INDIGESTION Apixaban 5 mg 11/29/17 21:00 12/03/17 08:05 Eliquis* PO 5 mg BID LUIS Administration Atorvastatin Calcium 10 mg 11/27/17 17:00 12/02/17 16:54 Lipitor* PO 10 mg 1700 LUIS Administration Protocol Benzonatate 100 mg 11/27/17 09:48 Tessalon Cap* PO BID PRN COUGH Bisacodyl 10 mg 11/27/17 09:28 Dulcolax Supp* [place] DAILY PRN CONSTIPATION Budesonide 0.5 mg 11/28/17 09:00 12/03/17 08:06 Pulmicort Neb* INH 0.5 mg DAILY LUIS Administration Dextrose 12.5 gm 11/27/17 09:42 D50w Syringe 50 Ml* IV PUSH .FOR FS < 60 - SS PRN FS < 60 Digoxin 0.125 mg 11/27/17 17:00 12/02/17 16:54 Lanoxin Tab* PO 0.125 mg 1700 LUIS Administration Docusate Sodium 100 mg 12/01/17 16:32 Colace Cap* PO BID PRN CONSTIPATION Famotidine 20 mg 11/28/17 09:00 12/03/17 08:05 Pepcid Tab* PO 20 mg DAILY LUIS Administration Folic Acid 1 mg 11/28/17 09:00 12/03/17 08:05 Folvite Tab* PO 1 mg DAILY LUIS Administration Insulin Human Lispro 0 units 11/27/17 17:15 12/03/17 08:05 Humalog* SUBCUT 2 units ACHS LUIS Administration Protocol Ipratropium [place] 0.5 mg 11/27/17 21:00 12/03/17 08:05 Atrovent 0.5 Mg Neb.Gretrude* INH 0.5 mg BID LUIS Administration Magnesium Hydroxide 30 ml 11/27/17 09:28 Milk Of Magnesia Liq* PO Q6H PRN CONSTIPATION Metformin HCl 500 mg 11/27/17 17:00 12/03/17 07:38 Glucophage* PO 500 mg 0800,1700 LUIS Administration Multivitamins/Minerals 1 tab 11/28/17 09:00 12/03/17 08:05 Theragran/Minerals Tab* PO 1 tab DAILY LUIS Administration Pharmacy Consult 1 note 11/27/17 10:00 Zosyn Per Pharmacy* FOLLOW UP .ZOSYN PER PHARMACY LUIS Polyethylene Glycol/Electrolytes 17 gm 11/27/17 09:47 Miralax* PO DAILY PRN CONSTIPATION Polyvinyl Alcohol 1 drop 11/27/17 09:47 Polyvinyl Alcohol 1.4% Opth* BOTH EYES Q2H PRN DRY EYE Senna 2 tab 11/27/17 21:00 12/02/17 19:44 Senokot Tab* PO Not Given BEDTIME LUIS Thiamine HCl 100 mg 11/28/17 09:00 12/03/17 08:05 Vitamin B-1 Tab* PO 100 mg DAILY LUIS Administration Vital Signs: Vital Signs Temp Pulse Resp BP Pulse Ox 97.7 F 95 20 136/51 95 12/03/17 04:47 12/03/17 04:47 12/03/17 07:35 12/03/17 04:47 12/03/17 07:35 Lab Results: Laboratory Results - last 24 hr 12/02/17 12/02/17 12/02/17 11:59 16:38 20:05 POC Glucose (mg/dL) 163 H 213 H 132 H Exam: LUNGS: Scarce rales HEART: Irregularly irregular. S1, S2 ABDOMEN: Soft EXTREMITIES: right hip wound clean Assessment/Plan: 1. Right Hip Fracture: S/P Hemiarthroplasty. PT/OT. Follow up with Ortho 2. Atrial fibrillation: Eliquis/Dig 3. DVT Prophylaxis: Eliquis 4. Diabetes: Glucophage/SSI 5. Advanced directives: DNR. is HCP. Has MOLST 6. COPD: Oxygen/Pulmicort/Albuterol Neb 7. CAD: Pravastatin/Eliquis 12/03/17 08:49
[2017-12-03] MEDS: Digoxin TAB* 0.125 MG PO SCH (18:05)
[2017-12-03] MEDS: Atorvastatin* 10 MG TAB PO SCH (18:05)
[2017-12-03] MEDS: Acetaminophen TAB* 325 MG PO PRN (19:53)
[2017-12-03] MEDS: Senna TAB PO SCH (20:10)
[2017-12-04] MEDS: Folic Acid TAB* 1 MG PO SCH (07:23)
[2017-12-04] MEDS: Budesonide NEB* 0.5 MG/2 ML NEB.SOLN INH SCH (07:23)
[2017-12-04] MEDS: Apixaban* 5 MG TAB PO SCH ×2 (07:23→20:03)
[2017-12-04] MEDS: Multivitamins/Minerals TAB PO SCH (07:23)
[2017-12-04] MEDS: metFORMIN* 500 MG TAB PO SCH ×2 (07:23→16:56)
[2017-12-04] MEDS: Ipratropium 0.5MG/2.5ML NEB* 0.5 MG/2.5 ML NEB.SOLN INH SCH ×2 (07:23→20:55)
[2017-12-04] MEDS: Famotidine TAB* 20 MG PO SCH (07:23)
[2017-12-04] MEDS: Thiamine TAB* 100 MG TAB PO SCH (07:23)
[2017-12-04] MEDS: Insulin LISPRO* 1 UNITS UNIT SUBCUT SCH ×4 (07:54→20:29)
[2017-12-04] MEDS: Acetaminophen TAB* 325 MG PO PRN ×2 (13:44→19:53)
[2017-12-04] MEDS: Atorvastatin* 10 MG TAB PO SCH (16:56)
[2017-12-04] MEDS: Digoxin TAB* 0.125 MG PO SCH (16:56)
--- NOTE | 2017-12-04 17:17 | PN ---
Progress Note Date of Service: 12/04/17 Note: AIDAN LEONE was visited. Nursing notes read and reviewed. He is doing okay , movement still needs work. No complaints. Blood sugars a little high, pulse a little low this diana Current Medications: Active Medications Generic Name Dose Route Start Last Admin Trade Name Freq PRN Reason Stop Dose Admin Acetaminophen 650 mg 11/27/17 09:28 12/04/17 13:44 Tylenol Tab* PO 650 mg Q6H PRN Administration FEVER > 101 Al Hydrox/Mg Hydrox/Simethicone 30 ml 11/27/17 09:28 Maalox Plus* PO Q6H PRN INDIGESTION Apixaban 5 mg 11/29/17 21:00 12/04/17 07:23 Eliquis* PO 5 mg BID LUIS Administration Atorvastatin Calcium 10 mg 11/27/17 17:00 12/04/17 16:56 Lipitor* PO 10 mg 1700 LUIS Administration Protocol Benzonatate 100 mg 11/27/17 09:48 Tessalon Cap* PO BID PRN COUGH Bisacodyl 10 mg 11/27/17 09:28 Dulcolax Supp* [place] DAILY PRN CONSTIPATION Budesonide 0.5 mg 11/28/17 09:00 12/04/17 07:23 Pulmicort Neb* INH 0.5 mg DAILY LUIS Administration Dextrose 12.5 gm 11/27/17 09:42 D50w Syringe 50 Ml* IV PUSH .FOR FS < 60 - SS PRN FS < 60 Digoxin 0.125 mg 11/27/17 17:00 12/04/17 16:56 Lanoxin Tab* PO 0.125 mg 1700 LUIS Administration Docusate Sodium 100 mg 12/01/17 16:32 Colace Cap* PO BID PRN CONSTIPATION Famotidine 20 mg 11/28/17 09:00 12/04/17 07:23 Pepcid Tab* PO 20 mg DAILY LUIS Administration Folic Acid 1 mg 11/28/17 09:00 12/04/17 07:23 Folvite Tab* PO 1 mg DAILY LUIS Administration Insulin Human Lispro 0 units 11/27/17 17:15 12/04/17 16:56 Humalog* SUBCUT 2 units ACHS LUIS Administration Protocol Ipratropium [place] 0.5 mg 11/27/17 21:00 05/20/18 07:23 Atrovent 0.5 Mg Neb.Gertrude* INH 0.5 mg BID LUIS Administration Magnesium Hydroxide 30 ml 11/27/17 09:28 Milk Of Christi Martellq* PO Q6H PRN CONSTIPATION Metformin HCl 500 mg 11/27/17 17:00 12/04/17 16:56 Glucophage* PO 500 mg 0800,1700 LUIS Administration Multivitamins/Minerals 1 tab 11/28/17 09:00 12/04/17 07:23 Theragran/Minerals Tab* PO 1 tab DAILY LUIS Administration Pharmacy Consult 1 note 11/27/17 10:00 Zosyn Per Pharmacy* FOLLOW UP .ZOSYN PER PHARMACY LUIS Polyethylene Glycol/Electrolytes 17 gm 11/27/17 09:47 Miralax* PO DAILY PRN CONSTIPATION Polyvinyl Alcohol 1 drop 11/27/17 09:47 Polyvinyl Alcohol 1.4% Opth* BOTH EYES Q2H PRN DRY EYE Senna 2 tab 11/27/17 21:00 12/03/17 20:10 Senokot Tab* PO Not Given BEDTIME LUIS Thiamine HCl 100 mg 11/28/17 09:00 12/04/17 07:23 Vitamin B-1 Tab* PO 100 mg DAILY LUIS Administration Vital Signs: Vital Signs Temp Pulse Resp BP Pulse Ox 97.7 F 77 24 124/61 97 12/04/17 15:58 12/04/17 15:58 12/04/17 15:58 12/04/17 15:58 12/04/17 16:00 Lab Results: Laboratory Results - last 24 hr 12/03/17 12/03/17 12/04/17 16:34 19:58 07:19 POC Glucose (mg/dL) 182 H 222 H 201 H 12/04/17 11:55 POC Glucose (mg/dL) 176 H Exam: LUNGS: Scarce rales HEART: Irregularly irregular. S1, S2 ABDOMEN: Soft EXTREMITIES: right hip wound clean Assessment/Plan: 1. Right Hip Fracture: S/P Hemiarthroplasty. PT/OT. Follow up with Ortho 2. Atrial fibrillation: Eliquis/Dig 3. DVT Prophylaxis: Eliquis 4. Diabetes: Glucophage/SSI 5. Advanced directives: DNR. is HCP. Has MOLST 6. COPD: Oxygen/Pulmicort/Albuterol Neb 7. CAD: Pravastatin/Eliquis 12/04/17 17:18
[2017-12-04] MEDS: Senna TAB PO SCH (20:03)
[2017-12-05 06:25] LABS: ABS Basophils 0.1 10^3/ul (0-0.2); ABS Eosinophils 0.2 10^3/ul (0-0.6); ABS Lymphocytes 2.7 10^3/ul (1.0-4.8); ABS Monocytes 1.2 10^3/ul (0-0.8); ABS Neutrophils 10.8 10^3/ul (1.5-7.7); ABS Nucleated RBC 0 10^3/ul; Eosinophil % 1.6 % (0-6); Hematocrit 41 % (42-52); Hemoglobin 13.5 g/dl (14.0-18.0); Lymphocyte % 17.6 % (25-47); Mean Corpuscular HGB Conc 33 g/dl (31-36); Mean Corpuscular Hemoglobin 32 pg (27-31); Mean Corpuscular Volume 95 fL (80-94); Mean Platelet Volume 8.5 um3 (7.4-10.4); Nucleated Red Blood Cells % 0; Platelet Count 518 10^3/ul (150-450); Red Blood Count 4.28 10^6/ul (4.0-5.4); Red Cell Distribution Width 15 % (10.5-15)
[2017-12-05 06:41] LABS: EGFR Non-African American 168.5 (>60)
[2017-12-05] MEDS: Insulin LISPRO* 1 UNITS UNIT SUBCUT SCH ×4 (07:30→20:45)
[2017-12-05] MEDS: metFORMIN* 500 MG TAB PO SCH ×2 (07:39→17:13)
[2017-12-05] MEDS: Apixaban* 5 MG TAB PO SCH ×2 (07:39→20:22)
[2017-12-05] MEDS: Famotidine TAB* 20 MG PO SCH (07:39)
[2017-12-05] MEDS: Thiamine TAB* 100 MG TAB PO SCH (07:39)
[2017-12-05] MEDS: Multivitamins/Minerals TAB PO SCH (07:39)
[2017-12-05] MEDS: Folic Acid TAB* 1 MG PO SCH (07:39)
[2017-12-05] MEDS: Ipratropium 0.5MG/2.5ML NEB* 0.5 MG/2.5 ML NEB.SOLN INH SCH ×3 (09:55→20:46)
[2017-12-05] MEDS: Budesonide NEB* 0.5 MG/2 ML NEB.SOLN INH SCH ×2 (09:55→13:29)
--- NOTE | 2017-12-05 12:01 | RAD ---
HISTORY: Shortness of breath, hypoxia COMPARISONS: November 28, 2017 VIEWS: 2: Frontal and lateral views of the chest. FINDINGS: CARDIOMEDIASTINAL SILHOUETTE: The cardiomediastinal silhouette is normal. YOGESH: The yogesh are normal. PLEURA: The costophrenic angles are sharp. No pleural abnormalities are noted. LUNG PARENCHYMA: There is hyperinflation. There is atelectatic change of the left upper lung with improved aeration compared to the previous examination. There is blunting of the right costophrenic angle. ABDOMEN: The upper abdomen is clear. There is no subphrenic gas. BONES AND SOFT TISSUES: No bone or soft tissue abnormalities are noted. OTHER: None. IMPRESSION: LEFT UPPER LOBE ATELECTASIS WITH IMPROVED AERATION COMPARED TO APRIL 30, 2018 COPD. SMALL RIGHT PLEURAL EFFUSION.
[2017-12-05] MEDS: Atorvastatin* 10 MG TAB PO SCH (17:13)
[2017-12-05] MEDS: Digoxin TAB* 0.125 MG PO SCH (17:13)
--- NOTE | 2017-12-05 18:10 | PN ---
Progress Note Date of Service: 12/05/17 Note: AIDAN LEONE was visited. Therapy notes read and reviewed. He had an episode of chest pain this am. He has had these in the past since hospitalization. CXR done: No Infiltrates. Small effusion. Troponin 0.01. Chest pain resolved. He did not sleep well. Would like a sleeper. Current Medications: Active Medications Generic Name Dose Route Start Last Admin Trade Name Freq PRN Reason Stop Dose Admin Acetaminophen 650 mg 11/27/17 09:28 12/04/17 19:53 Tylenol Tab* PO 650 mg Q6H PRN Administration FEVER > 101 Al Hydrox/Mg Hydrox/Simethicone 30 ml 11/27/17 09:28 Maalox Plus* PO Q6H PRN INDIGESTION Apixaban 5 mg 11/29/17 21:00 12/05/17 07:39 Eliquis* PO 5 mg BID LUIS Administration Atorvastatin Calcium 10 mg 11/27/17 17:00 12/05/17 17:13 Lipitor* PO 10 mg 1700 LUIS Administration Protocol Benzonatate 100 mg 11/27/17 09:48 Tessalon Cap* PO BID PRN COUGH Bisacodyl 10 mg 11/27/17 09:28 Dulcolax Supp* [place] DAILY PRN CONSTIPATION Budesonide 0.5 mg 11/28/17 09:00 12/05/17 13:29 Pulmicort Neb* INH 0.5 mg DAILY LUIS Administration Dextrose 12.5 gm 11/27/17 09:42 D50w Syringe 50 Ml* IV PUSH .FOR FS < 60 - SS PRN FS < 60 Digoxin 0.125 mg 11/27/17 17:00 12/05/17 17:13 Lanoxin Tab* PO 0.125 mg 1700 LUIS Administration Docusate Sodium 100 mg 12/01/17 16:32 Colace Cap* PO BID PRN CONSTIPATION Famotidine 20 mg 11/28/17 09:00 12/05/17 07:39 Pepcid Tab* PO 20 mg DAILY LUIS Administration Folic Acid 1 mg 11/28/17 09:00 12/05/17 07:39 Folvite Tab* PO 1 mg DAILY LUIS Administration Insulin Human Lispro 0 units 11/27/17 17:15 12/05/17 17:14 Humalog* SUBCUT 2 units ACHS LUIS Administration Protocol Ipratropium [place] 0.5 mg 11/27/17 21:00 12/05/17 13:28 Atrovent 0.5 Mg Neb.Gertrude* INH 0.5 mg BID LUIS Administration Magnesium Hydroxide 30 ml 11/27/17 09:28 Milk Of Christi Liq* PO Q6H PRN CONSTIPATION Metformin HCl 500 mg 11/27/17 17:00 12/05/17 17:13 Glucophage* PO 500 mg 0800,1700 LUIS Administration Multivitamins/Minerals 1 tab 11/28/17 09:00 12/05/17 07:39 Theragran/Minerals Tab* PO 1 tab DAILY LUIS Administration Pharmacy Consult 1 note 11/27/17 10:00 Zosyn Per Pharmacy* FOLLOW UP .ZOSYN PER PHARMACY LUIS Polyethylene Glycol/Electrolytes 17 gm 11/27/17 09:47 Miralax* PO DAILY PRN CONSTIPATION Polyvinyl Alcohol 1 drop 11/27/17 09:47 Polyvinyl Alcohol 1.4% Opth* BOTH EYES Q2H PRN DRY EYE Senna 2 tab 11/27/17 21:00 12/04/17 20:03 Senokot Tab* PO Not Given BEDTIME LUIS Thiamine HCl 100 mg 11/28/17 09:00 12/05/17 07:39 Vitamin B-1 Tab* PO 100 mg DAILY LUIS Administration Vital Signs: Vital Signs Temp Pulse Resp BP Pulse Ox 98.4 F 88 18 129/71 97 12/05/17 15:30 12/05/17 17:13 12/05/17 15:30 12/05/17 15:30 12/05/17 16:00 Lab Results: Laboratory Results - last 24 hr 12/04/17 12/04/17 12/05/17 16:53 19:59 05:54 WBC 15.0 H RBC 4.28 Hgb 13.5 L Hct 41 L MCV 95 H MCH 32 H MCHC 33 RDW 15 Plt Count 518 H D MPV 8.5 Neut % (Auto) 72.1 Lymph % (Auto) 17.6 L Cache % (Auto) 8.0 H Eos % (Auto) 1.6 Baso % (Auto) 0.7 Absolute Neuts (auto) 10.8 H Absolute Lymphs (auto) 2.7 Absolute Monos (auto) 1.2 H Absolute Eos (auto) 0.2 Absolute Basos (auto) 0.1 Absolute Nucleated RBC 0 Nucleated RBC % 0 Sodium Potassium Chloride Carbon Dioxide Anion Gap BUN Creatinine Est GFR ( Amer) Est GFR (Non-Af Amer) BUN/Creatinine Ratio Glucose POC Glucose (mg/dL) 172 H 184 H Calcium Total Bilirubin AST ALT Alkaline Phosphatase Troponin I Total Protein Albumin Globulin Albumin/Globulin Ratio 12/05/17 12/05/17 12/05/17 05:54 07:38 12:10 WBC RBC Hgb Hct MCV MCH MCHC RDW Plt Count MPV Neut % (Auto) Lymph % (Auto) Cache % (Auto) Eos % (Auto) Baso % (Auto) Absolute Neuts (auto) Absolute Lymphs (auto) Absolute Monos (auto) Absolute Eos (auto) Absolute Basos (auto) Absolute Nucleated RBC Nucleated RBC % Sodium 137 L Potassium 4.3 Chloride 103 Carbon Dioxide 28 Anion Gap 6 BUN 14 Creatinine 0.47 L Est GFR ( Amer) 216.8 Est GFR (Non-Af Amer) 168.5 BUN/Creatinine Ratio 29.8 H Glucose 187 H POC Glucose (mg/dL) 125 H 114 H Calcium 9.5 Total Bilirubin 0.90 AST 21 ALT 17 Alkaline Phosphatase 101 Troponin I Total Protein 6.3 L Albumin 3.1 L Globulin 3.2 Albumin/Globulin Ratio 1.0 12/05/17 12/05/17 13:57 16:24 WBC RBC Hgb Hct MCV MCH MCHC RDW Plt Count MPV Neut % (Auto) Lymph % (Auto) Cache % (Auto) Eos % (Auto) Baso % (Auto) Absolute Neuts (auto) Absolute Lymphs (auto) Absolute Monos (auto) Absolute Eos (auto) Absolute Basos (auto) Absolute Nucleated RBC Nucleated RBC % Sodium Potassium Chloride Carbon Dioxide Anion Gap BUN Creatinine Est GFR ( Amer) Est GFR (Non-Af Amer) BUN/Creatinine Ratio Glucose POC Glucose (mg/dL) 183 H Calcium Total Bilirubin AST ALT Alkaline Phosphatase Troponin I 0.01 Total Protein Albumin Globulin Albumin/Globulin Ratio Exam: LUNGS: Scarce rales HEART: Irregularly irregular. S1, S2 ABDOMEN: Soft EXTREMITIES: right hip wound clean. Able to move four extremities. Alert and oriented. Assessment/Plan: 1. Right Hip Fracture: S/P Hemiarthroplasty. PT/OT. Follow up with Ortho 2. Atrial fibrillation: Eliquis/Dig 3. DVT Prophylaxis: Eliquis 4. Diabetes: Glucophage/SSI 5. Advanced directives: DNR. is HCP. Has MOLST 6. COPD: Oxygen/Pulmicort/Albuterol Neb 7. CAD: Pravastatin/Eliquis 12/05/17 18:11
[2017-12-05] MEDS: Senna TAB PO SCH (19:39)
[2017-12-05] MEDS ORDERED: LORazepam TAB(*) 0.5 MG PO ONE (22:00)
[2017-12-06] MEDS: Insulin LISPRO* 1 UNITS UNIT SUBCUT SCH ×4 (07:42→20:52)
[2017-12-06] MEDS: Apixaban* 5 MG TAB PO SCH ×2 (07:43→20:49)
[2017-12-06] MEDS: metFORMIN* 500 MG TAB PO SCH ×2 (07:43→16:04)
[2017-12-06] MEDS: Folic Acid TAB* 1 MG PO SCH (07:43)
[2017-12-06] MEDS: Thiamine TAB* 100 MG TAB PO SCH (07:43)
[2017-12-06] MEDS: Multivitamins/Minerals TAB PO SCH (07:43)
[2017-12-06] MEDS: Famotidine TAB* 20 MG PO SCH (07:49)
[2017-12-06] MEDS: Budesonide NEB* 0.5 MG/2 ML NEB.SOLN INH SCH (09:18)
[2017-12-06] MEDS: Ipratropium 0.5MG/2.5ML NEB* 0.5 MG/2.5 ML NEB.SOLN INH SCH ×2 (09:18→20:27)
--- NOTE | 2017-12-06 12:47 | PMRUTEAM ---
PMRU: Team Meeting Current Status: Nursing: Current Status Skin Deviations [Left forearm] Other Skin Deviations [Right Arm] Skin Tear Skin Deviations [Bilateral Arm Bruise ] Skin Deviations [Buttocks] Bruise Skin Deviations [Left Leg] Skin Tear Skin Deviations [Right Knee] Abrasion Skin Deviations [Right Hip] Incision Skin Deviation Description [ PIV removed 11/28/17 Left forearm] Skin Deviation Description [ Mepelex dated 12/04 Right Arm] Skin Deviation Description [ bruises and skin tear in various healing stages Bilateral Arm] Skin Deviation Description [ yellow brown, soft non tender Buttocks] Skin Deviation Description [ Mepelex dated 12/05 Left Leg] Skin Deviation Description [ Healing Right Knee] Skin Deviation Description [ Healing Right Hip] Physical Therapy: Current Status Bed Mobility Assistance Min Assist Transfer Moblility Assistance Min Assist Transfer/Bed Mobility Rolling Walker Recommended Devices Ambulation Assistance Min Assist Ambulation Assistive Devices Rolling Walker Number of Feet Patient 30 Ambulated Stairs Assistance Not Tested Stairs Recommended Devices Two Rails Number of Stairs 4 Curb Not Tested Manual Wheelchair Control/ Bilateral LE's Technique Wheelchair Propulsion Ability Minimum Assistance Wheelchair Distance (ft) 50 Objective Comments pt very fatigued with minimal activity this afternoon, requiring 1-2 min rest breaks in between each exercise Occupational Therapy: Current Status Upper Body Dressing Supervision Lower Body Dressing Min Assist,Mod Assist Bathing Min Assist,Mod Assist Toileting Mod Assist Toilet Transfer Contact Guard Assist,Min Assist Shower Transfer Contact Guard Assist,Min Assist Eating Supervision Rec Therapy: Current Status Summary of Assessment and RT assessment complete and pt. is aware of RT Clinical Impression services. Pt. expressed feeling tired but is very pleasant, cooperative and open to leisure visits. Treatment Goals Pt. will engage in leisure activities while on the unit. Treatment Plan Provide RT services and encourage involvement. Social Work: Current Status Discharge Plan return home with home care svs and family support Potential for Family Training pt's is involved and supportive Anticipated Discharge Home Destination Discharge With home care svs and family support Nutrition: Current Status Monitoring Intake improving since admission to PM[facility]: initially with lows of 25-30% of meals, now eating 50-100% of meals regularly. Occasionally needs assistance opening containers. FSBG 114-192 past 24 hrs. Consistent carb diet remains appropriate. Receives Metformin BID and Humalog for coverage. Soft/liquid BMs noted; last one today. Was receiving abx (11/27-). Will follow bowel pattern . No open areas noted per nursing skin assessments . Appears to be meeting nutrition needs; will monitor bowel pattern for any increased frequency of liquid stools. Speech: Current Status Assessment Patient demonstrated clinical s/s laryngeal penetration or aspiration of thin water and soup broth, later elimoinated by use of supraglottic swallow technique. Goals: Physical Therapy: Initial Goals Bed Mobility Assistance Independent Transfer Mobility Assistance Independent Transfer/Bed Mobility Rolling Walker Recommended Devices Ambulation Independent Ambulation Recommended Devices Rolling Walker Ambulation Distance 150 Stairs Assistance Contact Guard Assist Stair Recommended Devices Two Rails Number of Stairs 5 Physical Therapy: Updated Goals Transfer/Bed Mobility Rolling Walker Recommended Devices Occupational Therapy: Initial Goals Goals to be Completed in (Days 21 days ) Upper Body Bathing Routine Modified Independent with Lower Body Bathing Routine Modified Independent with Upper Body Dressing Routine Independent Lower Body Dressing Routine Modified Independent with Toilet Hygeine and Clothing Modified Independent with Management Routine Toilet Transfer Routine Modified Independent with Step-In Shower Transfer Modified Independent with Routine Functional Transfers for ADL Modified Independent with Grooming Routine Independent Feeding Routine Modified Independent with Nutrition: Goals Intervention Goals 1. adequate po intake to support lean body mass, hydration, and stable wt 2. glycemic control within inpatient parameters and without s/sx hypo- or hyperglycemia 3. achieve and maintain regular bowel pattern without constipation or diarrhea 4. skin will remain intact without s/sx breakdown Speech: Goals Speech Goal 1 Swallowing Goal 1 Comments Nursing Home Goal: Pt will tolerate least restrictive diet consistencies with no clinical s/ s of aspiration Short-Term Goal (modified): Pt will consume 240 mL trials of thin liquids at meals w/o clinical s/s of penetration or aspiration. Status: Ongoing. On 11/30/17, [employer] recommended upgrade to thin liquids, and patient tolerted well, but on 12/05/17 , nsg and OT reported wet coughing on thins. [employer] provided skilled monitoring and trials at lunch meal. [employer] observed mild, delayed wet coughing after thin water and mixed consistencies: beef- vegetable soup, and canned peach cubes in juice. [employer] reeducated patient to use the supraglootic swallow technique; For further trials later that day and as reported by nursing, no further couging was observed. Speech Goal 2 Memory Speech Goal 2 Comments Long-Term Goal: Pt will use compensatory strategies to encode and retrieve 4/4 new items after delay of 30 minutes, Independently, for independence in mobility safety, ADLs and community access. Short-term Goal: Pt will use compensatory strategies to encode and retrieve 3/4 new items after delay of 5 minutes, given Moderate skilled instruction and cueing. Status: Progressing as expected. For trials of thin water on 12/05/17, patient did not recall or use previously instructed supraglootic swallow technique until [employer] reinstructed; patient then used technique I'ly later in the day, and explained that he was doing so. Speech Goal 3 Problem Solving Speech Goal 3 Comments Long-Term Goal: Pt will use compensatory strategies to solve moderately complex routine problems, with 100% accuracy, Independently, for safety and ADLs such as shopping, time and money management. Short-Term Goal: Pt will use compensatory strategies to solve moderately complex routine problems, with 80% accuracy, given Moderate skilled instruction and cueing. Status: Progressing as expected. Social Work: Goals Discharge Plan return home with home care svs and family support Potential for Family Training pt's is involved and supportive Anticipated Discharge Home Destination Discharge With home care svs and family support Care Plan: Care Plan ADL's - Improve/Maintain Start: 11/29/17 10:21 Freq: QSHIFT Status: Active Target: Protocol: Activity Type Activity Date Activity User E-Sign Co-Sign Detail Recorded Client Recorded Date Recorded By Document 12/02/17 10:49 [id number] [id number] 12/02/17 10:49 [id number] 12/02/17 10:49 PMRU Outcome: ADL's/ADL Transfers Orders/Interventions Occupational Therapy Evaluation & Treatment Device Yes Patient to receive OT 5x/wk for 60-120 Therex min/day Self Care Management Group Therapy UE/LE ADL's with Assist Yes ADL Transfers with Assist Yes Toileting: Transfers,Clothing Management Yes ,Hygeine w/Assist Light Kitchen/Laundry w/Assist Yes Progression Toward Outcome/Goals Progressing Outcome/Goals Met Pt. dons socks using sock aide with no verbal cues this date . Pt. does continue to be limited with difficulty remember THP and AE to assist with donning pants. Cardiovascular- Improve/Maintain Start: 11/27/17 17:59 Freq: QSHIFT Status: Active Target: Protocol: Activity Type Activity Date Activity User E-Sign Co-Sign Detail Recorded Client Recorded Date Recorded By Document 12/05/17 23:54 [id number] [email or web address] 12/05/17 23:55 [id number] 12/05/17 23:54 PMRU Outcome: Cardiovascular Vital Signs q Shift for 48hrs Then BID Yes Daily Weight Ordered No Current Cardiovascular Outcome/Goal Maintain/ Achieve Baseline HR, BP , Perfusion Free of Abnormal Cardiac Symptoms Progression Toward Outcome/Goal Progressing Communication-Improve/Maintain Start: 11/27/17 17:59 Freq: QSHIFT Status: Active Target: Protocol: Activity Type Activity Date Activity User E-Sign Co-Sign Detail Recorded Client Recorded Date Recorded By Document 12/05/17 23:54 [id number] [id number] 12/05/17 23:55 [id number] 12/05/17 23:54 PMRU Outcome: Communication/Cognitive Status Outcome/Goals Makes Needs Known Effectively Other Outcomes/Goals Memory Long-Term Goal: Pt will use compensatory strategies to encode and retrieve 4/4 new items after delay of 30 minutes, Independently, for independence in mobility safety, ADLs and community access. Short-term Goal : Pt will use compensatory strategies to encode and retrieve 3/4 new items after delay of 5 minutes, given Moderate skilled instruction and cueing. Status: Progressing as expected. Problem Solving Long-Term Goal: Pt will use compensatory strategies to solve moderately complex routine problems, with 100% accuracy, Independently, for safety and ADLs such as shopping, time and money management. Short-Term Goal : Pt will use compensatory strategies to solve moderately complex routine problems, with 80% accuracy, given Moderate skilled instruction and cueing. Status: Progressing as expected. Progression Toward Outcomes/Goals Goals Adjusted DVT Prophylaxis- Improve/Maintain Start: 11/27/17 17:59 Freq: QSHIFT Status: Active Target: Protocol: Activity Type Activity Date Activity User E-Sign Co-Sign Detail Recorded Client Recorded Date Recorded By Document 12/05/17 23:54 [id number] [email or web address] 12/05/17 23:55 [id number] 12/05/17 23:54 PMRU Outcome: DVT Prophylaxis Outcome/Goals Remains Free of DVT Free of complications from current DVT Complies with DVT Prophylaxis /Treatment Progression Toward Outcome/Goals Progressing Education-Improve/Maintain Start: 11/27/17 17:59 Freq: QSHIFT Status: Active Target: Protocol: Activity Type Activity Date Activity User E-Sign Co-Sign Detail Recorded Client Recorded Date Recorded By Document 12/05/17 23:54 [id number] [id number] 12/05/17 23:55 [id number] 12/05/17 23:54 PMRU Outcome: Education Outcome/Goals Encourage Questions Progression Toward Outcome/Goals Progressing Metabolic Status- Improve/Maintain Start: 11/27/17 17:59 Freq: QSHIFT Status: Active Target: Protocol: Activity Type Activity Date Activity User E-Sign Co-Sign Detail Recorded Client Recorded Date Recorded By Document 12/05/17 23:54 [id number] [email or web address] 12/05/17 23:55 [id number] 12/05/17 23:54 PMRU Outcome: Metabolic Status Have Fingersticks Been Ordered Yes Fingerstick Order Frequency AC & HS Outcome/Goals Maintain/ Improve Metabolic Status Progression Toward Outcome/Goals Progressing Mobility- Improve/Maintain Start: 11/27/17 17:59 Freq: QSHIFT Status: Active Target: Protocol: Activity Type Activity Date Activity User E-Sign Co-Sign Detail Recorded Client Recorded Date Recorded By Document 12/05/17 14:41 [id number] [id number] 12/05/17 14:42 [id number] 12/05/17 14:41 PMRU Outcome: Mobility Physical Therapy Evaluation and Yes Treatment Activity OOB with Assistance Yes WBAT Yes: R LE Device Yes: front wheeled walker Assistance Yes: CGA Patient to be seen 5x/wk for 60-120 min/ Therex day for: Mobility Training Gait Training Balance Outcome/Goals Maintain/ Achieve Baseline Mobility Status Improve Mobility Status Demonstrates Proper Use of Assistive Devices Free from Complications of Immobility Progression Toward Outcome/Goals Not Progressing Outcome/Goals Met Demonstrates Proper Use of Assistive Devices Outcome/Goals Met Comment pt had increased difficulty with standing activities today due to fatigue and shortness of breath Bed Mobility Yes: Independent Transfers Yes: Ind with walker Gait x ft Yes: Ind with walker x150' W/C Mobility x ft No Up/Down Stairs Yes: Sup x5 steps with rail With HEP Yes Nutrition/Swallowing- Improve/Maintain Start: 11/30/17 17:00 Freq: QSHIFT Status: Active Target: Protocol: Activity Type Activity Date Activity User E-Sign Co-Sign Detail Recorded Client Recorded Date Recorded By Document 12/05/17 23:54 [id number] [id number] 12/05/17 23:55 [id number] 12/05/17 23:54 PMRU Outcome: Nutrition/Swallowing Outcome/Goals Maintain/ Improve Nutritional Status Progression Toward Outcome/Goals Progressing Pain/Comfort- Improve/Maintain Start: 11/27/17 17:59 Freq: QSHIFT Status: Complete Target: Protocol: Activity Type Activity Date Activity User E-Sign Co-Sign Detail Recorded Client Recorded Date Recorded By Document 12/02/17 08:30 [id number] [email or web address] 12/02/17 12:37 [id number] 12/02/17 08:30 PMRU Outcome: Pain/Comfort Outcome/Goals Achieves Acceptable Comfort/Pain Level as Determined by Patient/Condit Maintain Comfort Level Allowing Patient to Fully Participate in Rehab Progression Toward Outcome/Goals Progressing Outcome/Goals Met Demonstrates Knowledge and Use of Available Comfort Measures Achieves Acceptable Comfort/Pain Level as Determined by Patient/Condit Respiratory - Improve/Maintain Start: 11/27/17 17:59 Freq: QSHIFT Status: Active Target: Protocol: Activity Type Activity Date Activity User E-Sign Co-Sign Detail Recorded Client Recorded Date Recorded By Document 12/05/17 23:54 [id number] [email or web address] 12/05/17 23:55 [id number] 12/05/17 23:54 PMRU Outcome: Respiratory Does Patient Have a Trach No Outcome/Goals Maintain/ Improve O2 Sat per MD Order Maintain/ Improve Baseline Respiratory Status Remain Aspiration Free Progression Toward Outcome/Goals Progressing Outcome/Goals Met Comment [address] Safety- Improve/Maintain Start: 11/27/17 17:59 Freq: QSHIFT Status: Active Target: Protocol: Activity Type Activity Date Activity User E-Sign Co-Sign Detail Recorded Client Recorded Date Recorded By Document 12/05/17 23:54 [id number] [email or web address] 12/05/17 23:55 [id number] 12/05/17 23:54 PMRU Outcome: Safety Outcome/Goals Remain Free of Injury or Harm Cooperates with Safety Measures for Least Restrictive Environment Equipment Needed Progression Toward Outcome/Goals Progressing Outcome/Goals Met Comment PA in place Skin- Improve/Maintain Start: 11/27/17 17:59 Freq: QSHIFT Status: Active Target: Protocol: Activity Type Activity Date Activity User E-Sign Co-Sign Detail Recorded Client Recorded Date Recorded By Document 12/05/17 23:54 [id number] [email or web address] 12/05/17 23:55 [id number] 12/05/17 23:54 PMRU Outcome: Skin Skin Risk Level Medium Skin Orders Air Mattress Heels Off Bed Dressing Change Comments pillows Outcome/Goals Maintain/ Improve Skin Intergrity Free from Decubitus Maintain/ Improve Wound Status Progression Toward Outcome/Goals Progressing Medicine Note: Length of Stay: 2 weeks Anticipated Discharge Destination: Home Tentative Discharge Date: 12/20/17 Discharged to: Home
[2017-12-06] MEDS: Atorvastatin* 10 MG TAB PO SCH (16:04)
[2017-12-06] MEDS: Digoxin TAB* 0.125 MG PO SCH (16:05)
[2017-12-06] MEDS: Acetaminophen TAB* 325 MG PO PRN (16:05)
--- NOTE | 2017-12-06 17:12 | PN ---
Progress Note Date of Service: 12/06/17 Note: AIDAN LEONE was visited. Therapy notes read and reviewed. He was discussed in interdisciplinary team rounds. This morning, his upper dentures came loose ( partial dentures) and got lodged at back of throat. We were able to retrieve them with a tweezers before he swallowed them. Breathing fine at present. No further CP Current Medications: Active Medications Generic Name Dose Route Start Last Admin Trade Name Freq PRN Reason Stop Dose Admin Acetaminophen 650 mg 11/27/17 09:28 12/06/17 16:05 Tylenol Tab* PO 650 mg Q6H PRN Administration FEVER > 101 Al Hydrox/Mg Hydrox/Simethicone 30 ml 11/27/17 09:28 Maalox Plus* PO Q6H PRN INDIGESTION Apixaban 5 mg 11/29/17 21:00 12/06/17 07:43 Eliquis* PO 5 mg BID LUIS Administration Atorvastatin Calcium 10 mg 11/27/17 17:00 12/06/17 16:04 Lipitor* PO 10 mg 1700 LUIS Administration Protocol Benzonatate 100 mg 11/27/17 09:48 Tessalon Cap* PO BID PRN COUGH Bisacodyl 10 mg 11/27/17 09:28 Dulcolax Supp* [place] DAILY PRN CONSTIPATION Budesonide 0.5 mg 11/28/17 09:00 12/06/17 09:18 Pulmicort Neb* INH 0.5 mg DAILY LUIS Administration Dextrose 12.5 gm 11/27/17 09:42 D50w Syringe 50 Ml* IV PUSH .FOR FS < 60 - SS PRN FS < 60 Digoxin 0.125 mg 11/27/17 17:00 12/06/17 16:05 Lanoxin Tab* PO 0.125 mg 1700 LUIS Administration Docusate Sodium 100 mg 12/01/17 16:32 Colace Cap* PO BID PRN CONSTIPATION Famotidine 20 mg 11/28/17 09:00 12/06/17 07:49 Pepcid Tab* PO 20 mg DAILY LUIS Administration Folic Acid 1 mg 11/28/17 09:00 12/06/17 07:43 Folvite Tab* PO 1 mg DAILY LUIS Administration Insulin Human Lispro 0 units 11/27/17 17:15 12/06/17 12:58 Humalog* SUBCUT 2 units ACHS LUIS Administration Protocol Ipratropium [place] 0.5 mg 11/27/17 21:00 12/06/17 09:18 Atrovent 0.5 Mg Neb.Gertrude* INH 0.5 mg BID LUIS Administration Lorazepam 0.5 mg 12/06/17 16:05 Ativan Tab(*) PO BEDTIME PRN INSOMNIA Magnesium Hydroxide 30 ml 11/27/17 09:28 Milk Of Magnesia Liq* PO Q6H PRN CONSTIPATION Metformin HCl 500 mg 11/27/17 17:00 12/06/17 16:04 Glucophage* PO 500 mg 0800,1700 LUIS Administration Multivitamins/Minerals 1 tab 11/28/17 09:00 12/06/17 07:43 Theragran/Minerals Tab* PO 1 tab DAILY LUIS Administration Pharmacy Consult 1 note 11/27/17 10:00 Zosyn Per Pharmacy* FOLLOW UP .ZOSYN PER PHARMACY LUIS Polyethylene Glycol/Electrolytes 17 gm 11/27/17 09:47 Miralax* PO DAILY PRN CONSTIPATION Polyvinyl Alcohol 1 drop 11/27/17 09:47 Polyvinyl Alcohol 1.4% Opth* BOTH EYES Q2H PRN DRY EYE Senna 2 tab 11/27/17 21:00 12/05/17 19:39 Senokot Tab* PO Not Given BEDTIME LUIS Thiamine HCl 100 mg 11/28/17 09:00 12/06/17 07:43 Vitamin B-1 Tab* PO 100 mg DAILY LUIS Administration Vital Signs: Vital Signs Temp Pulse Resp BP Pulse Ox 98.2 F 98 20 104/47 97 12/06/17 15:28 12/06/17 16:05 12/06/17 16:07 12/06/17 15:28 12/06/17 16:00 Lab Results: Laboratory Results - last 24 hr 12/05/17 12/06/17 12/06/17 20:21 07:33 12:32 POC Glucose (mg/dL) 163 H 192 H 158 H 12/06/17 16:28 POC Glucose (mg/dL) 233 H Exam: LUNGS: Scarce rales HEART: Irregularly irregular. S1, S2 ABDOMEN: Soft EXTREMITIES: right hip wound clean. Able to move four extremities. Alert and oriented. Assessment/Plan: 1. Right Hip Fracture: S/P Hemiarthroplasty. PT/OT. Follow up with Ortho 2. Atrial fibrillation: Eliquis/Dig 3. DVT Prophylaxis: Eliquis 4. Diabetes: Glucophage/SSI 5. Advanced directives: DNR. is HCP. Has MOLST 6. COPD: Oxygen/Pulmicort/Albuterol Neb 7. CAD: Pravastatin/Eliquis 8. Dysphagia: Will consider swallow study. 12/06/17 17:12
[2017-12-06] MEDS: LORazepam TAB(*) 0.5 MG PO PRN (20:49)
[2017-12-06] MEDS: Senna TAB PO SCH (20:52)
[2017-12-07] MEDS: Acetaminophen TAB* 325 MG PO PRN ×2 (00:21→18:14)
[2017-12-07] MEDS: Insulin LISPRO* 1 UNITS UNIT SUBCUT SCH ×4 (07:58→21:34)
[2017-12-07] MEDS: Famotidine TAB* 20 MG PO SCH (07:59)
[2017-12-07] MEDS: Thiamine TAB* 100 MG TAB PO SCH (07:59)
[2017-12-07] MEDS: Folic Acid TAB* 1 MG PO SCH (08:00)
[2017-12-07] MEDS: Apixaban* 5 MG TAB PO SCH ×2 (08:00→21:33)
[2017-12-07] MEDS: Multivitamins/Minerals TAB PO SCH (08:00)
[2017-12-07] MEDS: metFORMIN* 500 MG TAB PO SCH ×2 (08:00→17:03)
[2017-12-07] MEDS: Ipratropium 0.5MG/2.5ML NEB* 0.5 MG/2.5 ML NEB.SOLN INH SCH ×2 (08:57→20:25)
[2017-12-07] MEDS: Budesonide NEB* 0.5 MG/2 ML NEB.SOLN INH SCH (08:57)
[2017-12-07] MEDS: Atorvastatin* 10 MG TAB PO SCH (17:03)
[2017-12-07] MEDS: Digoxin TAB* 0.125 MG PO SCH (17:03)
--- NOTE | 2017-12-07 19:17 | PN ---
Progress Note Date of Service: 12/07/17 Note: AIDAN LEONE was visited. Therapy notes read and reviewed. Doing okay today. Ativan helping him sleep. He is eager to go home. Walked a little bit today with PT Current Medications: Active Medications Generic Name Dose Route Start Last Admin Trade Name Freq PRN Reason Stop Dose Admin Acetaminophen 650 mg 11/27/17 09:28 12/07/17 18:14 Tylenol Tab* PO 650 mg Q6H PRN Administration FEVER > 101 Al Hydrox/Mg Hydrox/Simethicone 30 ml 11/27/17 09:28 Maalox Plus* PO Q6H PRN INDIGESTION Apixaban 5 mg 11/29/17 21:00 12/07/17 08:00 Eliquis* PO 5 mg BID LUIS Administration Atorvastatin Calcium 10 mg 11/27/17 17:00 12/07/17 17:03 Lipitor* PO 10 mg 1700 LUIS Administration Protocol Benzonatate 100 mg 11/27/17 09:48 Tessalon Cap* PO BID PRN COUGH Bisacodyl 10 mg 11/27/17 09:28 Dulcolax Supp* [place] DAILY PRN CONSTIPATION Budesonide 0.5 mg 11/28/17 09:00 12/07/17 08:57 Pulmicort Neb* INH 0.5 mg DAILY LUIS Administration Dextrose 12.5 gm 11/27/17 09:42 D50w Syringe 50 Ml* IV PUSH .FOR FS < 60 - SS PRN FS < 60 Digoxin 0.125 mg 11/27/17 17:00 12/07/17 17:03 Lanoxin Tab* PO 0.125 mg 1700 LUIS Administration Docusate Sodium 100 mg 12/01/17 16:32 Colace Cap* PO BID PRN CONSTIPATION Famotidine 20 mg 11/28/17 09:00 12/07/17 07:59 Pepcid Tab* PO 20 mg DAILY LUIS Administration Folic Acid 1 mg 11/28/17 09:00 12/07/17 08:00 Folvite Tab* PO 1 mg DAILY LUIS Administration Insulin Human Lispro 0 units 11/27/17 17:15 12/07/17 17:05 Humalog* SUBCUT 4 units ACHS LUIS Administration Protocol Ipratropium [place] 0.5 mg 11/27/17 21:00 12/07/17 08:57 Atrovent 0.5 Mg Neb.Gertrude* INH 0.5 mg BID LUIS Administration Lorazepam 0.5 mg 12/06/17 16:05 12/06/17 20:49 Ativan Tab(*) PO 0.5 mg BEDTIME PRN Administration INSOMNIA Magnesium Hydroxide 30 ml 11/27/17 09:28 Milk Of [place]bet[place] Liq* PO Q6H PRN CONSTIPATION Metformin HCl 500 mg 11/27/17 17:00 12/07/17 17:03 Glucophage* PO 500 mg 0800,1700 LUIS Administration Multivitamins/Minerals 1 tab 11/28/17 09:00 12/07/17 08:00 Theragran/Minerals Tab* PO 1 tab DAILY LUIS Administration Pharmacy Consult 1 note 11/27/17 10:00 Zosyn Per Pharmacy* FOLLOW UP .ZOSYN PER PHARMACY LUIS Polyethylene Glycol/Electrolytes 17 gm 11/27/17 09:47 Miralax* PO DAILY PRN CONSTIPATION Polyvinyl Alcohol 1 drop 11/27/17 09:47 Polyvinyl Alcohol 1.4% Opth* BOTH EYES Q2H PRN DRY EYE Senna 2 tab 11/27/17 21:00 12/06/17 20:52 Senokot Tab* PO Not Given BEDTIME LUIS Thiamine HCl 100 mg 11/28/17 09:00 12/07/17 07:59 Vitamin B-1 Tab* PO 100 mg DAILY LUIS Administration Vital Signs: Vital Signs Temp Pulse Resp BP Pulse Ox 97.7 F 82 22 139/83 100 12/07/17 16:00 12/07/17 17:03 12/07/17 18:17 12/07/17 16:00 12/07/17 16:14 Lab Results: Laboratory Results - last 24 hr 12/06/17 12/07/17 12/07/17 20:18 07:37 12:05 POC Glucose (mg/dL) 140 H 111 H 192 H 12/07/17 16:24 POC Glucose (mg/dL) 204 H Exam: LUNGS: Scarce rales HEART: Irregularly irregular. S1, S2 ABDOMEN: Soft EXTREMITIES: right hip wound clean. Able to move four extremities. Alert and oriented. Assessment/Plan: 1. Right Hip Fracture: S/P Hemiarthroplasty. PT/OT. Follow up with Ortho 2. Atrial fibrillation: Eliquis/Dig 3. DVT Prophylaxis: Eliquis 4. Diabetes: Glucophage/SSI 5. Advanced directives: DNR. is HCP. Has MOLST 6. COPD: Oxygen/Pulmicort Neb/Atrovent Neb 7. CAD: Pravastatin/Eliquis 8. Dysphagia: Will consider swallow study. 12/07/17 19:20 12/07/17 19:22
[2017-12-07] MEDS: Senna TAB PO SCH (19:26)
[2017-12-07] MEDS: LORazepam TAB(*) 0.5 MG PO PRN (21:33)
[2017-12-08] MEDS: Budesonide NEB* 0.5 MG/2 ML NEB.SOLN INH SCH (08:16)
[2017-12-08] MEDS: Ipratropium 0.5MG/2.5ML NEB* 0.5 MG/2.5 ML NEB.SOLN INH SCH ×2 (08:16→19:41)
[2017-12-08] MEDS: Insulin LISPRO* 1 UNITS UNIT SUBCUT SCH ×4 (08:56→20:17)
[2017-12-08] MEDS: Apixaban* 5 MG TAB PO SCH ×2 (08:57→20:17)
[2017-12-08] MEDS: Acetaminophen TAB* 325 MG PO PRN ×2 (08:58→17:22)
[2017-12-08] MEDS: Multivitamins/Minerals TAB PO SCH (08:58)
[2017-12-08] MEDS: metFORMIN* 500 MG TAB PO SCH ×2 (08:58→16:57)
[2017-12-08] MEDS: Folic Acid TAB* 1 MG PO SCH (08:58)
[2017-12-08] MEDS: Thiamine TAB* 100 MG TAB PO SCH (08:58)
[2017-12-08] MEDS: Famotidine TAB* 20 MG PO SCH (08:58)
[2017-12-08] MEDS: Digoxin TAB* 0.125 MG PO SCH (16:56)
[2017-12-08] MEDS: Atorvastatin* 10 MG TAB PO SCH (16:57)
--- NOTE | 2017-12-08 20:03 | PN ---
Progress Note Date of Service: 12/08/17 Note: AIDAN RICHNCER was visited. Therapy notes read and reviewed. Current Medications: Active Medications Generic Name Dose Route Start Last Admin Trade Name Rina PRN Reason Stop Dose Admin Acetaminophen 650 mg 11/27/17 09:28 12/08/17 17:22 Tylenol Tab* PO 650 mg Q6H PRN Administration FEVER > 101 Al Hydrox/Mg Hydrox/Simethicone 30 ml 11/27/17 09:28 Maalox Plus* PO Q6H PRN INDIGESTION Apixaban 5 mg 11/29/17 21:00 12/08/17 08:57 Eliquis* PO 5 mg BID LUIS Administration Atorvastatin Calcium 10 mg 11/27/17 17:00 12/08/17 16:57 Lipitor* PO 10 mg 1700 LUIS Administration Protocol Benzonatate 100 mg 11/27/17 09:48 Tessalon Cap* PO BID PRN COUGH Bisacodyl 10 mg 11/27/17 09:28 Dulcolax Supp* [place] DAILY PRN CONSTIPATION Budesonide 0.5 mg 11/28/17 09:00 12/08/17 08:16 Pulmicort Neb* INH 0.5 mg DAILY LUIS Administration Dextrose 12.5 gm 11/27/17 09:42 D50w Syringe 50 Ml* IV PUSH .FOR FS < 60 - SS PRN FS < 60 Digoxin 0.125 mg 11/27/17 17:00 12/08/17 16:56 Lanoxin Tab* PO 0.125 mg 1700 LUIS Administration Docusate Sodium 100 mg 12/01/17 16:32 Colace Cap* PO BID PRN CONSTIPATION Famotidine 20 mg 11/28/17 09:00 12/08/17 08:58 Pepcid Tab* PO 20 mg DAILY LUIS Administration Folic Acid 1 mg 11/28/17 09:00 12/08/17 08:58 Folvite Tab* PO 1 mg DAILY LUIS Administration Insulin Human Lispro 0 units 11/27/17 17:15 12/08/17 16:50 Humalog* SUBCUT Not Given ACHS LUIS Protocol Ipratropium [place] 0.5 mg 11/27/17 21:00 12/08/17 19:41 Atrovent 0.5 Mg Neb.Gertrude* INH 0.5 mg BID LUIS Administration Lorazepam 0.5 mg 12/06/17 16:05 12/07/17 21:33 Ativan Tab(*) PO 0.5 mg BEDTIME PRN Administration INSOMNIA Magnesium Hydroxide 30 ml 11/27/17 09:28 Milk Of Christi Martellq* PO Q6H PRN CONSTIPATION Metformin HCl 500 mg 11/27/17 17:00 12/08/17 16:57 Glucophage* PO 500 mg 0800,1700 LUIS Administration Multivitamins/Minerals 1 tab 11/28/17 09:00 12/08/17 08:58 Theragran/Minerals Tab* PO 1 tab DAILY LUIS Administration Pharmacy Consult 1 note 11/27/17 10:00 Zosyn Per Pharmacy* FOLLOW UP .ZOSYN PER PHARMACY LUIS Polyethylene Glycol/Electrolytes 17 gm 11/27/17 09:47 Miralax* PO DAILY PRN CONSTIPATION Polyvinyl Alcohol 1 drop 11/27/17 09:47 Polyvinyl Alcohol 1.4% Opth* BOTH EYES Q2H PRN DRY EYE Senna 2 tab 11/27/17 21:00 12/07/17 19:26 Senokot Tab* PO Not Given BEDTIME LUIS Thiamine HCl 100 mg 11/28/17 09:00 12/08/17 08:58 Vitamin B-1 Tab* PO 100 mg DAILY LUIS Administration Vital Signs: Vital Signs Temp Pulse Resp BP Pulse Ox 98.0 F 80 20 112/62 98 12/08/17 15:11 12/08/17 19:42 12/08/17 19:42 12/08/17 15:11 12/08/17 19:42 Lab Results: Laboratory Results - last 24 hr 12/07/17 12/08/17 12/08/17 20:20 07:23 11:47 POC Glucose (mg/dL) 161 H 161 H 265 H 12/08/17 16:47 POC Glucose (mg/dL) 72 Exam: LUNGS: Scarce rales HEART: Irregularly irregular. S1, S2 ABDOMEN: Soft EXTREMITIES: right hip wound clean. Able to move four extremities. Alert and oriented. Assessment/Plan: 1. Right Hip Fracture: S/P Hemiarthroplasty. PT/OT. Follow up with Ortho 2. Atrial fibrillation: Eliquis/Dig 3. DVT Prophylaxis: Eliquis 4. Diabetes: Glucophage/SSI 5. Advanced directives: DNR. is HCP. Has MOLST 6. COPD: Oxygen/Pulmicort Neb/Atrovent Neb 7. CAD: Pravastatin/Eliquis 8. Dysphagia: Will consider swallow study. 12/08/17 20:04
[2017-12-08] MEDS: Senna TAB PO SCH (20:17)
[2017-12-08] MEDS: LORazepam TAB(*) 0.5 MG PO PRN (20:18)
[2017-12-09] MEDS: metFORMIN* 500 MG TAB PO SCH ×2 (07:23→17:04)
[2017-12-09] MEDS: Apixaban* 5 MG TAB PO SCH ×2 (07:23→20:50)
[2017-12-09] MEDS: Famotidine TAB* 20 MG PO SCH (07:23)
[2017-12-09] MEDS: Multivitamins/Minerals TAB PO SCH (07:23)
[2017-12-09] MEDS: Folic Acid TAB* 1 MG PO SCH (07:24)
[2017-12-09] MEDS: Thiamine TAB* 100 MG TAB PO SCH (07:24)
[2017-12-09] MEDS: Insulin LISPRO* 1 UNITS UNIT SUBCUT SCH ×4 (07:30→20:55)
[2017-12-09] MEDS: Ipratropium 0.5MG/2.5ML NEB* 0.5 MG/2.5 ML NEB.SOLN INH SCH ×2 (09:11→20:37)
[2017-12-09] MEDS: Budesonide NEB* 0.5 MG/2 ML NEB.SOLN INH SCH (09:11)
[2017-12-09] MEDS: Acetaminophen TAB* 325 MG PO PRN (15:49)
--- NOTE | 2017-12-09 16:23 | PN ---
Progress Note Date of Service: 12/09/17 Note: AIDAN LEONE was visited. Therapy notes read and reviewed. Patient seems to be mobilizing better than he was earlier in the week. Current Medications: Active Medications Generic Name Dose Route Start Last Admin Trade Name Freq PRN Reason Stop Dose Admin Acetaminophen 650 mg 11/27/17 09:28 12/09/17 15:49 Tylenol Tab* PO 650 mg Q6H PRN Administration FEVER > 101 Al Hydrox/Mg Hydrox/Simethicone 30 ml 11/27/17 09:28 Maalox Plus* PO Q6H PRN INDIGESTION Apixaban 5 mg 11/29/17 21:00 12/09/17 07:23 Eliquis* PO 5 mg BID LUIS Administration Atorvastatin Calcium 10 mg 11/27/17 17:00 12/08/17 16:57 Lipitor* PO 10 mg 1700 LUIS Administration Protocol Benzonatate 100 mg 11/27/17 09:48 Tessalon Cap* PO BID PRN COUGH Bisacodyl 10 mg 11/27/17 09:28 Dulcolax Supp* [place] DAILY PRN CONSTIPATION Budesonide 0.5 mg 11/28/17 09:00 12/09/17 09:11 Pulmicort Neb* INH 0.5 mg DAILY LUIS Administration Dextrose 12.5 gm 11/27/17 09:42 D50w Syringe 50 Ml* IV PUSH .FOR FS < 60 - SS PRN FS < 60 Digoxin 0.125 mg 11/27/17 17:00 12/08/17 16:56 Lanoxin Tab* PO 0.125 mg 1700 LUIS Administration Docusate Sodium 100 mg 12/01/17 16:32 Colace Cap* PO BID PRN CONSTIPATION Famotidine 20 mg 11/28/17 09:00 12/09/17 07:23 Pepcid Tab* PO 20 mg DAILY LUIS Administration Folic Acid 1 mg 11/28/17 09:00 12/09/17 07:24 Folvite Tab* PO 1 mg DAILY LUIS Administration Insulin Human Lispro 0 units 11/27/17 17:15 12/09/17 13:25 Humalog* SUBCUT 2 units ACHS LUIS Administration Protocol Ipratropium [place] 0.5 mg 11/27/17 21:00 12/09/17 09:11 Atrovent 0.5 Mg Neb.Gertrude* INH 0.5 mg BID LUIS Administration Lorazepam 0.5 mg 12/06/17 16:05 12/08/17 20:18 Ativan Tab(*) PO 0.5 mg BEDTIME PRN Administration INSOMNIA Magnesium Hydroxide 30 ml 11/27/17 09:28 Milk Of [place] Liq* PO Q6H PRN CONSTIPATION Metformin HCl 500 mg 11/27/17 17:00 12/09/17 07:23 Glucophage* PO 500 mg 0800,1700 LUIS Administration Multivitamins/Minerals 1 tab 11/28/17 09:00 12/09/17 07:23 Theragran/Minerals Tab* PO 1 tab DAILY LUIS Administration Pharmacy Consult 1 note 11/27/17 10:00 Zosyn Per Pharmacy* FOLLOW UP .ZOSYN PER PHARMACY LUIS Polyethylene Glycol/Electrolytes 17 gm 11/27/17 09:47 Miralax* PO DAILY PRN CONSTIPATION Polyvinyl Alcohol 1 drop 11/27/17 09:47 Polyvinyl Alcohol 1.4% Opth* BOTH EYES Q2H PRN DRY EYE Senna 2 tab 11/27/17 21:00 12/08/17 20:17 Senokot Tab* PO 2 tab BEDTIME LUIS Administration Thiamine HCl 100 mg 11/28/17 09:00 12/09/17 07:24 Vitamin B-1 Tab* PO 100 mg DAILY LUIS Administration Vital Signs: Vital Signs Temp Pulse Resp BP Pulse Ox 98.7 F 61 26 124/68 94 12/09/17 15:33 12/09/17 15:33 12/09/17 15:33 12/09/17 15:33 12/09/17 15:33 Lab Results: Laboratory Results - last 24 hr 12/08/17 12/08/17 12/09/17 16:47 19:55 07:24 POC Glucose (mg/dL) 72 211 H 213 H 12/09/17 13:07 POC Glucose (mg/dL) 157 H Exam: LUNGS: Scarce rales HEART: Irregularly irregular. S1, S2 ABDOMEN: Soft EXTREMITIES: right hip wound clean. Able to move four extremities. Alert and oriented. Assessment/Plan: 1. Right Hip Fracture: S/P Hemiarthroplasty. PT/OT. Follow up with Ortho 2. Atrial fibrillation: Eliquis/Dig 3. DVT Prophylaxis: Eliquis 4. Diabetes: Glucophage/SSI 5. Advanced directives: DNR. is HCP. Has MOLST 6. COPD: Oxygen/Pulmicort Neb/Atrovent Neb 7. CAD: Pravastatin/Eliquis 8. Dysphagia: Will consider swallow study. 12/09/17 16:23
[2017-12-09] MEDS: Digoxin TAB* 0.125 MG PO SCH (17:05)
[2017-12-09] MEDS: Atorvastatin* 10 MG TAB PO SCH (17:05)
[2017-12-09] MEDS: Senna TAB PO SCH (20:50)
[2017-12-09] MEDS: LORazepam TAB(*) 0.5 MG PO PRN (20:50)
[2017-12-10] MEDS: Budesonide NEB* 0.5 MG/2 ML NEB.SOLN INH SCH (07:15)
[2017-12-10] MEDS: Ipratropium 0.5MG/2.5ML NEB* 0.5 MG/2.5 ML NEB.SOLN INH SCH ×2 (07:15→20:00)
[2017-12-10] MEDS: Acetaminophen TAB* 325 MG PO PRN ×2 (07:52→20:21)
[2017-12-10] MEDS: Multivitamins/Minerals TAB PO SCH (07:53)
[2017-12-10] MEDS: Thiamine TAB* 100 MG TAB PO SCH (07:53)
[2017-12-10] MEDS: Apixaban* 5 MG TAB PO SCH ×2 (07:53→20:21)
[2017-12-10] MEDS: Folic Acid TAB* 1 MG PO SCH (07:53)
[2017-12-10] MEDS: Famotidine TAB* 20 MG PO SCH (07:53)
[2017-12-10] MEDS: metFORMIN* 500 MG TAB PO SCH ×2 (07:53→16:56)
[2017-12-10] MEDS: Insulin LISPRO* 1 UNITS UNIT SUBCUT SCH ×4 (08:08→20:16)
[2017-12-10] MEDS: Atorvastatin* 10 MG TAB PO SCH (16:56)
[2017-12-10] MEDS: Digoxin TAB* 0.125 MG PO SCH (16:56)
--- NOTE | 2017-12-10 19:30 | PN ---
Progress Note Date of Service: 12/10/17 Note: AIDAN LEONE was visited. Therapy notes read and reviewed. He feels pretty good. Breathing easier, moving better Current Medications: Active Medications Generic Name Dose Route Start Last Admin Trade Name Freq PRN Reason Stop Dose Admin Acetaminophen 650 mg 11/27/17 09:28 12/10/17 07:52 Tylenol Tab* PO 650 mg Q6H PRN Administration FEVER > 101 Al Hydrox/Mg Hydrox/Simethicone 30 ml 11/27/17 09:28 Maalox Plus* PO Q6H PRN INDIGESTION Apixaban 5 mg 11/29/17 21:00 12/10/17 07:53 Eliquis* PO 5 mg BID LUIS Administration Atorvastatin Calcium 10 mg 11/27/17 17:00 12/10/17 16:56 Lipitor* PO 10 mg 1700 LUIS Administration Protocol Benzonatate 100 mg 11/27/17 09:48 Tessalon Cap* PO BID PRN COUGH Bisacodyl 10 mg 11/27/17 09:28 Dulcolax Supp* [place] DAILY PRN CONSTIPATION Budesonide 0.5 mg 11/28/17 09:00 12/10/17 07:15 Pulmicort Neb* INH 0.5 mg DAILY LUIS Administration Dextrose 12.5 gm 11/27/17 09:42 D50w Syringe 50 Ml* IV PUSH .FOR FS < 60 - SS PRN FS < 60 Digoxin 0.125 mg 11/27/17 17:00 12/10/17 16:56 Lanoxin Tab* PO 0.125 mg 1700 LUIS Administration Docusate Sodium 100 mg 12/01/17 16:32 Colace Cap* PO BID PRN CONSTIPATION Famotidine 20 mg 11/28/17 09:00 12/10/17 07:53 Pepcid Tab* PO 20 mg DAILY LUIS Administration Folic Acid 1 mg 11/28/17 09:00 12/10/17 07:53 Folvite Tab* PO 1 mg DAILY LUIS Administration Insulin Human Lispro 0 units 11/27/17 17:15 12/10/17 16:58 Humalog* SUBCUT 2 units ACHS LUIS Administration Protocol Ipratropium [place] 0.5 mg 11/27/17 21:00 12/10/17 07:15 Atrovent 0.5 Mg Neb.Gertrude* INH 0.5 mg BID LUIS Administration Lorazepam 0.5 mg 12/06/17 16:05 12/09/17 20:50 Ativan Tab(*) PO 0.5 mg BEDTIME PRN Administration INSOMNIA Magnesium Hydroxide 30 ml 11/27/17 09:28 Milk Of [place] Martellq* PO Q6H PRN CONSTIPATION Metformin HCl 500 mg 11/27/17 17:00 12/10/17 16:56 Glucophage* PO 500 mg 0800,1700 LUIS Administration Multivitamins/Minerals 1 tab 11/28/17 09:00 12/10/17 07:53 Theragran/Minerals Tab* PO 1 tab DAILY LUIS Administration Pharmacy Consult 1 note 11/27/17 10:00 Zosyn Per Pharmacy* FOLLOW UP .ZOSYN PER PHARMACY LUIS Polyethylene Glycol/Electrolytes 17 gm 11/27/17 09:47 Miralax* PO DAILY PRN CONSTIPATION Polyvinyl Alcohol 1 drop 11/27/17 09:47 Polyvinyl Alcohol 1.4% Opth* BOTH EYES Q2H PRN DRY EYE Senna 2 tab 11/27/17 21:00 12/09/17 20:50 Senokot Tab* PO 2 tab BEDTIME LUIS Administration Thiamine HCl 100 mg 11/28/17 09:00 12/10/17 07:53 Vitamin B-1 Tab* PO 100 mg DAILY LUIS Administration Vital Signs: Vital Signs Temp Pulse Resp BP Pulse Ox 98.4 F 86 20 109/67 98 12/10/17 15:24 12/10/17 16:56 12/10/17 15:24 12/10/17 15:24 12/10/17 16:00 Lab Results: Laboratory Results - last 24 hr 12/09/17 12/10/17 12/10/17 20:53 07:34 11:48 POC Glucose (mg/dL) 158 H 206 H 180 H 12/10/17 16:46 POC Glucose (mg/dL) 196 H Exam: LUNGS: Scarce rales HEART: Irregularly irregular. S1, S2 ABDOMEN: Soft EXTREMITIES: right hip wound clean. Able to move four extremities. Alert and oriented. Assessment/Plan: 1. Right Hip Fracture: S/P Hemiarthroplasty. PT/OT. Follow up with Ortho 2. Atrial fibrillation: Eliquis/Dig 3. DVT Prophylaxis: Eliquis 4. Diabetes: Glucophage/SSI 5. Advanced directives: DNR. is HCP. Has MOLST 6. COPD: Oxygen/Pulmicort Neb/Atrovent Neb 7. CAD: Pravastatin/Eliquis 8. Dysphagia: Will consider swallow study. 12/10/17 19:30
[2017-12-10] MEDS: Senna TAB PO SCH (20:21)
[2017-12-10] MEDS: LORazepam TAB(*) 0.5 MG PO PRN (20:22)
[2017-12-11] MEDS: Acetaminophen TAB* 325 MG PO PRN ×3 (02:15→20:28)
[2017-12-11] MEDS: Ipratropium 0.5MG/2.5ML NEB* 0.5 MG/2.5 ML NEB.SOLN INH SCH ×2 (07:35→19:25)
[2017-12-11] MEDS: Budesonide NEB* 0.5 MG/2 ML NEB.SOLN INH SCH (07:35)
[2017-12-11] MEDS: metFORMIN* 500 MG TAB PO SCH ×2 (08:08→16:56)
[2017-12-11] MEDS: Famotidine TAB* 20 MG PO SCH (08:09)
[2017-12-11] MEDS: Multivitamins/Minerals TAB PO SCH (08:09)
[2017-12-11] MEDS: Apixaban* 5 MG TAB PO SCH ×2 (08:09→20:29)
[2017-12-11] MEDS: Thiamine TAB* 100 MG TAB PO SCH (08:09)
[2017-12-11] MEDS: Folic Acid TAB* 1 MG PO SCH (08:09)
[2017-12-11] MEDS: Insulin LISPRO* 1 UNITS UNIT SUBCUT SCH ×4 (08:11→20:19)
[2017-12-11] MEDS: Atorvastatin* 10 MG TAB PO SCH (16:55)
[2017-12-11] MEDS: Digoxin TAB* 0.125 MG PO SCH (16:56)
--- NOTE | 2017-12-11 17:37 | PN ---
Progress Note Date of Service: 12/11/17 Note: AIDAN LEONE was visited. Nursing notes read and reviewed. He is looking forward to going home at the end of the week. Breathing is stable Current Medications: Active Medications Generic Name Dose Route Start Last Admin Trade Name Freq PRN Reason Stop Dose Admin Acetaminophen 650 mg 11/27/17 09:28 12/11/17 08:10 Tylenol Tab* PO 650 mg Q6H PRN Administration FEVER > 101 Al Hydrox/Mg Hydrox/Simethicone 30 ml 11/27/17 09:28 Maalox Plus* PO Q6H PRN INDIGESTION Apixaban 5 mg 11/29/17 21:00 12/11/17 08:09 Eliquis* PO 5 mg BID LUIS Administration Atorvastatin Calcium 10 mg 11/27/17 17:00 12/11/17 16:55 Lipitor* PO 10 mg 1700 LUIS Administration Protocol Benzonatate 100 mg 11/27/17 09:48 Tessalon Cap* PO BID PRN COUGH Bisacodyl 10 mg 11/27/17 09:28 Dulcolax Supp* [place] DAILY PRN CONSTIPATION Budesonide 0.5 mg 11/28/17 09:00 12/11/17 07:35 Pulmicort Neb* INH 0.5 mg DAILY LUIS Administration Dextrose 12.5 gm 11/27/17 09:42 D50w Syringe 50 Ml* IV PUSH .FOR FS < 60 - SS PRN FS < 60 Digoxin 0.125 mg 11/27/17 17:00 12/11/17 16:56 Lanoxin Tab* PO 0.125 mg 1700 LUIS Administration Docusate Sodium 100 mg 12/01/17 16:32 Colace Cap* PO BID PRN CONSTIPATION Famotidine 20 mg 11/28/17 09:00 12/11/17 08:09 Pepcid Tab* PO 20 mg DAILY LUIS Administration Folic Acid 1 mg 11/28/17 09:00 12/11/17 08:09 Folvite Tab* PO 1 mg DAILY LUIS Administration Insulin Human Lispro 0 units 11/27/17 17:15 12/11/17 16:56 Humalog* SUBCUT 2 units ACHS LUIS Administration Protocol Ipratropium [place] 0.5 mg 11/27/17 21:00 12/11/17 07:35 Atrovent 0.5 Mg Neb.Gertrude* INH 0.5 mg BID LUIS Administration Lorazepam 0.5 mg 12/06/17 16:05 12/10/17 20:22 Ativan Tab(*) PO 0.5 mg BEDTIME PRN Administration INSOMNIA Magnesium Hydroxide 30 ml 11/27/17 09:28 Milk Of Magnesia Liq* PO Q6H PRN CONSTIPATION Metformin HCl 500 mg 11/27/17 17:00 12/11/17 16:56 Glucophage* PO 500 mg 0800,1700 LUIS Administration Multivitamins/Minerals 1 tab 11/28/17 09:00 12/11/17 08:09 Theragran/Minerals Tab* PO 1 tab DAILY LUIS Administration Pharmacy Consult 1 note 11/27/17 10:00 Zosyn Per Pharmacy* FOLLOW UP .ZOSYN PER PHARMACY LUIS Polyethylene Glycol/Electrolytes 17 gm 11/27/17 09:47 Miralax* PO DAILY PRN CONSTIPATION Polyvinyl Alcohol 1 drop 11/27/17 09:47 Polyvinyl Alcohol 1.4% Opth* BOTH EYES Q2H PRN DRY EYE Senna 2 tab 11/27/17 21:00 12/10/17 20:21 Senokot Tab* PO 2 tab BEDTIME LUIS Administration Thiamine HCl 100 mg 11/28/17 09:00 12/11/17 08:09 Vitamin B-1 Tab* PO 100 mg DAILY LUIS Administration Vital Signs: Vital Signs Temp Pulse Resp BP Pulse Ox 97.7 F 80 18 121/65 97 12/11/17 15:21 12/11/17 16:56 12/11/17 15:21 12/11/17 15:21 12/11/17 16:00 Lab Results: Laboratory Results - last 24 hr 12/10/17 12/11/17 12/11/17 20:14 07:31 11:39 POC Glucose (mg/dL) 94 163 H 202 H 12/11/17 16:35 POC Glucose (mg/dL) 170 H Exam: LUNGS: Scarce rales HEART: Irregularly irregular. S1, S2 ABDOMEN: Soft EXTREMITIES: right hip wound clean. Able to move four extremities. Alert and oriented. Assessment/Plan: 1. Right Hip Fracture: S/P Hemiarthroplasty. PT/OT. Follow up with Ortho 2. Atrial fibrillation: Eliquis/Dig 3. DVT Prophylaxis: Eliquis 4. Diabetes: Glucophage/SSI 5. Advanced directives: DNR. is HCP. Has MOLST 6. COPD: Oxygen/Pulmicort Neb/Atrovent Neb 7. CAD: Pravastatin/Eliquis 8. Dysphagia: Will consider swallow study, but holding off as he seems able to handle diet despite occasional cough. 12/11/17 17:37
[2017-12-11] MEDS: LORazepam TAB(*) 0.5 MG PO PRN (20:29)
[2017-12-11] MEDS: Senna TAB PO SCH (20:32)
[2017-12-12] MEDS: Acetaminophen TAB* 325 MG PO PRN (03:04)
[2017-12-12 06:36] LABS: ABS Basophils 0.1 10^3/ul (0-0.2); ABS Eosinophils 0.4 10^3/ul (0-0.6); ABS Lymphocytes 3.2 10^3/ul (1.0-4.8); ABS Neutrophils 5.2 10^3/ul (1.5-7.7); ABS Nucleated RBC 0 10^3/ul; Eosinophil % 4.2 % (0-6); Hematocrit 38 % (42-52); Hemoglobin 12.8 g/dl (14.0-18.0); Lymphocyte % 32.1 % (25-47); Mean Corpuscular HGB Conc 34 g/dl (31-36); Mean Corpuscular Hemoglobin 32 pg (27-31); Mean Corpuscular Volume 95 fL (80-94); Mean Platelet Volume 8.5 um3 (7.4-10.4); Nucleated Red Blood Cells % 0.1; Platelet Count 264 10^3/ul (150-450); Red Blood Count 3.96 10^6/ul (4.0-5.4); Red Cell Distribution Width 14 % (10.5-15); White Blood Count 9.8 10^3/ul (3.5-10.8)
[2017-12-12 06:44] LABS: EGFR Non-African American 156.9 (>60)
[2017-12-12] MEDS: Insulin LISPRO* 1 UNITS UNIT SUBCUT SCH ×4 (07:43→20:21)
[2017-12-12] MEDS: Budesonide NEB* 0.5 MG/2 ML NEB.SOLN INH SCH (07:44)
[2017-12-12] MEDS: Ipratropium 0.5MG/2.5ML NEB* 0.5 MG/2.5 ML NEB.SOLN INH SCH ×2 (07:44→20:08)
[2017-12-12] MEDS: metFORMIN* 500 MG TAB PO SCH ×2 (08:29→16:47)
[2017-12-12] MEDS: Famotidine TAB* 20 MG PO SCH (08:30)
[2017-12-12] MEDS: Folic Acid TAB* 1 MG PO SCH (08:30)
[2017-12-12] MEDS: Apixaban* 5 MG TAB PO SCH ×2 (08:30→20:21)
[2017-12-12] MEDS: Multivitamins/Minerals TAB PO SCH (08:30)
[2017-12-12] MEDS: Thiamine TAB* 100 MG TAB PO SCH (08:31)
--- NOTE | 2017-12-12 16:11 | PN ---
Progress Note Date of Service: 12/12/17 Note: AIDAN LEONE was visited. Nursing notes read and reviewed. He is in fairly good spirits without complaints. Current Medications: Active Medications Generic Name Dose Route Start Last Admin Trade Name Freq PRN Reason Stop Dose Admin Acetaminophen 650 mg 11/27/17 09:28 12/12/17 03:04 Tylenol Tab* PO 650 mg Q6H PRN Administration FEVER > 101 Al Hydrox/Mg Hydrox/Simethicone 30 ml 11/27/17 09:28 Maalox Plus* PO Q6H PRN INDIGESTION Apixaban 5 mg 11/29/17 21:00 12/12/17 08:30 Eliquis* PO 5 mg BID LUIS Administration Atorvastatin Calcium 10 mg 11/27/17 17:00 12/11/17 16:55 Lipitor* PO 10 mg 1700 LUIS Administration Protocol Benzonatate 100 mg 11/27/17 09:48 Tessalon Cap* PO BID PRN COUGH Bisacodyl 10 mg 11/27/17 09:28 Dulcolax Supp* [place] DAILY PRN CONSTIPATION Budesonide 0.5 mg 11/28/17 09:00 12/12/17 07:44 Pulmicort Neb* INH 0.5 mg DAILY LUIS Administration Dextrose 12.5 gm 11/27/17 09:42 D50w Syringe 50 Ml* IV PUSH .FOR FS < 60 - SS PRN FS < 60 Digoxin 0.125 mg 11/27/17 17:00 12/11/17 16:56 Lanoxin Tab* PO 0.125 mg 1700 LUIS Administration Docusate Sodium 100 mg 12/01/17 16:32 Colace Cap* PO BID PRN CONSTIPATION Famotidine 20 mg 11/28/17 09:00 12/12/17 08:30 Pepcid Tab* PO 20 mg DAILY LUIS Administration Folic Acid 1 mg 11/28/17 09:00 12/12/17 08:30 Folvite Tab* PO 1 mg DAILY LUIS Administration Insulin Human Lispro 0 units 11/27/17 17:15 12/12/17 12:30 Humalog* SUBCUT 2 units ACHS LUIS Administration Protocol Ipratropium [place] 0.5 mg 11/27/17 21:00 12/12/17 07:44 Atrovent 0.5 Mg Neb.Gertrude* INH 0.5 mg BID LUIS Administration Lorazepam 0.5 mg 12/06/17 16:05 12/11/17 20:29 Ativan Tab(*) PO 0.5 mg BEDTIME PRN Administration INSOMNIA Magnesium Hydroxide 30 ml 11/27/17 09:28 Milk Of [place] Liq* PO Q6H PRN CONSTIPATION Metformin HCl 500 mg 11/27/17 17:00 12/12/17 08:29 Glucophage* PO 500 mg 0800,1700 LUIS Administration Multivitamins/Minerals 1 tab 11/28/17 09:00 12/12/17 08:30 Theragran/Minerals Tab* PO 1 tab DAILY LUIS Administration Pharmacy Consult 1 note 11/27/17 10:00 Zosyn Per Pharmacy* FOLLOW UP .ZOSYN PER PHARMACY LUIS Polyethylene Glycol/Electrolytes 17 gm 11/27/17 09:47 Miralax* PO DAILY PRN CONSTIPATION Polyvinyl Alcohol 1 drop 11/27/17 09:47 Polyvinyl Alcohol 1.4% Opth* BOTH EYES Q2H PRN DRY EYE Senna 2 tab 11/27/17 21:00 12/11/17 20:32 Senokot Tab* PO Not Given BEDTIME LUIS Thiamine HCl 100 mg 11/28/17 09:00 12/12/17 08:31 Vitamin B-1 Tab* PO 100 mg DAILY LUIS Administration Vital Signs: Vital Signs Temp Pulse Resp BP Pulse Ox 99.2 F 65 14 126/56 97 12/12/17 05:14 12/12/17 07:46 12/12/17 07:46 12/12/17 05:14 12/12/17 07:46 Lab Results: Laboratory Results - last 24 hr 12/11/17 12/11/17 12/12/17 16:35 20:16 05:58 WBC 9.8 RBC 3.96 L Hgb 12.8 L Hct 38 L MCV 95 H MCH 32 H MCHC 34 RDW 14 Plt Count 264 MPV 8.5 Neut % (Auto) 53.2 Lymph % (Auto) 32.1 [place] % (Auto) 10.0 H Eos % (Auto) 4.2 Baso % (Auto) 0.5 Absolute Neuts (auto) 5.2 Absolute Lymphs (auto) 3.2 Absolute Monos (auto) 1.0 H Absolute Eos (auto) 0.4 Absolute Basos (auto) 0.1 Absolute Nucleated RBC 0 Nucleated RBC % 0.1 Sodium Potassium Chloride Carbon Dioxide Anion Gap BUN Creatinine Est GFR ( Amer) Est GFR (Non-Af Amer) BUN/Creatinine Ratio Glucose POC Glucose (mg/dL) 170 H 175 H Calcium Total Bilirubin AST ALT Alkaline Phosphatase Total Protein Albumin Globulin Albumin/Globulin Ratio 12/12/17 05:58 WBC RBC Hgb Hct MCV MCH MCHC RDW Plt Count MPV Neut % (Auto) Lymph % (Auto) [place] % (Auto) Eos % (Auto) Baso % (Auto) Absolute Neuts (auto) Absolute Lymphs (auto) Absolute Monos (auto) Absolute Eos (auto) Absolute Basos (auto) Absolute Nucleated RBC Nucleated RBC % Sodium 138 L Potassium 4.0 Chloride 104 Carbon Dioxide 32 Anion Gap 2 BUN 13 Creatinine 0.50 L Est GFR ( Amer) 201.8 Est GFR (Non-Af Amer) 156.9 BUN/Creatinine Ratio 26.0 H Glucose 146 H POC Glucose (mg/dL) Calcium 9.3 Total Bilirubin 0.90 AST 21 ALT 15 Alkaline Phosphatase 106 H Total Protein 5.8 L Albumin 3.0 L Globulin 2.8 Albumin/Globulin Ratio 1.1 Exam: LUNGS: Scarce rales HEART: Irregularly irregular. S1, S2 ABDOMEN: Soft EXTREMITIES: right hip wound clean. Able to move four extremities. Alert and oriented. Assessment/Plan: 1. Right Hip Fracture: S/P Hemiarthroplasty. PT/OT. Follow up with Ortho 2. Atrial fibrillation: Eliquis/Dig 3. DVT Prophylaxis: Eliquis 4. Diabetes: Glucophage/SSI 5. Advanced directives: DNR. is HCP. Has MOLST 6. COPD: Oxygen/Pulmicort Neb/Atrovent Neb 7. CAD: Pravastatin/Eliquis 8. Dysphagia: Will consider swallow study, but holding off as he seems able to handle diet despite occasional cough. 12/12/17 16:11
[2017-12-12] MEDS: Digoxin TAB* 0.125 MG PO SCH (16:47)
[2017-12-12] MEDS: Atorvastatin* 10 MG TAB PO SCH (16:47)
[2017-12-12] MEDS: Senna TAB PO SCH (20:21)
[2017-12-13] MEDS: Ipratropium 0.5MG/2.5ML NEB* 0.5 MG/2.5 ML NEB.SOLN INH SCH ×2 (07:59→19:52)
[2017-12-13] MEDS: Budesonide NEB* 0.5 MG/2 ML NEB.SOLN INH SCH (07:59)
[2017-12-13] MEDS: Folic Acid TAB* 1 MG PO SCH (09:27)
[2017-12-13] MEDS: Apixaban* 5 MG TAB PO SCH ×2 (09:27→21:09)
[2017-12-13] MEDS: Famotidine TAB* 20 MG PO SCH (09:27)
[2017-12-13] MEDS: Multivitamins/Minerals TAB PO SCH (09:27)
[2017-12-13] MEDS: Thiamine TAB* 100 MG TAB PO SCH (09:27)
[2017-12-13] MEDS: metFORMIN* 500 MG TAB PO SCH ×2 (09:27→17:20)
[2017-12-13] MEDS: Insulin LISPRO* 1 UNITS UNIT SUBCUT SCH ×4 (09:28→21:10)
--- NOTE | 2017-12-13 12:32 | PMRUTEAM ---
PMRU: Team Meeting Current Status: Nursing: Current Status Skin Deviations [Left Salcido] Skin Tear Skin Deviations [Left forearm] Other Skin Deviations [Right Ear] Other Skin Deviations [Left Knee] Abrasion Skin Deviations [Left Ankle] Skin Tear Skin Deviations [Right Arm] Skin Tear Skin Deviations [Bilateral Arm Bruise ] Skin Deviations [Buttocks] Bruise Skin Deviations [Left Leg] Skin Tear Skin Deviations [Right Knee] Abrasion Skin Deviations [Right Hip] Incision Skin Deviation Description [ mepilex Left Salcido] Skin Deviation Description [ PIV removed 11/28/17 Left forearm] Skin Deviation Description [ irritation d/t nasal cannula; protective gauze in Right Ear] place Skin Deviation Description [ optifoam intact Right Arm] Skin Deviation Description [ bruises and skin tear in various healing stages Bilateral Arm] Skin Deviation Description [ yellow brown, soft non tender Buttocks] Skin Deviation Description [ upper thigh area-optifoam intact Left Leg] Skin Deviation Description [ Scab Right Knee] Skin Deviation Description [ well approximated, no redness or drainage Right Hip] Bladder Current Status Continent of urine, ability to hold the urinal himself, staff empties urinal Bowel Current Status Continent of bowel, bowel medication daily Nutrition Current Status Adequete, 50-75% of most meals Medication Current Status Aware of medication regimen, medications taken whole with water without difficulty Physical Therapy: Current Status Bed Mobility Assistance Supervision Transfer Moblility Assistance Supervision Transfer/Bed Mobility Rolling Walker Recommended Devices Ambulation Assistance Supervision Ambulation Assistive Devices Rolling Walker Number of Feet Patient 150 Ambulated Stairs Assistance Not Tested Stairs Recommended Devices Two Rails Number of Stairs 4 Curb Contact Guard Assist Curb Assistive Devices Rolling Walker Manual Wheelchair Control/ Bilateral LE's Technique Wheelchair Propulsion Ability Standby Assistance Wheelchair Distance (ft) 100 Objective Comments pt's O2 Sat remained between 90-100% while on 2L O2 via NC throughout tx session Occupational Therapy: Current Status Upper Body Dressing Supervision Lower Body Dressing Min Assist Bathing Supervision Toileting Supervision Toilet Transfer Supervision Shower Transfer Supervision Eating Supervision Rec Therapy: Current Status Summary of Assessment and RT assessment complete and pt. is aware of RT Clinical Impression services. Pt. spends time resting in the afternoons. Pt. is pleasant, cooperative and open to leisure visits. Treatment Goals Pt. will engage in leisure activities while on the unit. Treatment Plan Provide RT services and encourage involvement. Social Work: Current Status Discharge Plan return home with home care svs and family support Potential for Family Training pt's is involved and supportive Anticipated Discharge Home Destination Discharge With home care svs and family support Nutrition: Current Status Monitoring Intake has been varying from 10-100% since 12/09. Ate 100% B, 50% L today. Visited pt, who reports good appetite. Denies any difficulty chewing or swallowing. Bowel pattern has improved to soft formed stools nearly every day. Anticipated d/c is 12/15. No change to current intervention indicated ; encourage PO with meals to ensure adequate intake. Speech: Current Status Assessment Patient progressing as expected Goals: Physical Therapy: Initial Goals Bed Mobility Assistance Independent Transfer Mobility Assistance Independent Transfer/Bed Mobility Rolling Walker Recommended Devices Ambulation Independent Ambulation Recommended Devices Rolling Walker Ambulation Distance 150 Stairs Assistance Contact Guard Assist Stair Recommended Devices Two Rails Number of Stairs 5 Physical Therapy: Updated Goals Transfer/Bed Mobility Rolling Walker Recommended Devices Occupational Therapy: Initial Goals Goals to be Completed in (Days 21 days ) Upper Body Bathing Routine Supervision/Set Up Lower Body Bathing Routine Supervision/Set Up Upper Body Dressing Routine Independent Lower Body Dressing Routine Supervision/Set Up Toilet Hygeine and Clothing Modified Independent with Management Routine Toilet Transfer Routine Modified Independent with Step-In Shower Transfer Supervision/Set Up Routine Functional Transfers for ADL Modified Independent with Grooming Routine Independent Feeding Routine Modified Independent with Nursing: Goals Bladder Goal Independent with toileting Bowel Goal Independent with toileting Nutrition Goal 100% of all meals Medication Goal Independent with medication Nutrition: Goals Intervention Goals 1. adequate po intake to support lean body mass, hydration, and stable wt 2. glycemic control within inpatient parameters and without s/sx hypo- or hyperglycemia 3. achieve and maintain regular bowel pattern without constipation or diarrhea 4. skin will remain intact without s/sx breakdown Speech: Goals Speech Goal 1 Swallowing Goal 1 Comments Fdc Goal: Pt will tolerate least restrictive diet consistencies with no clinical s/ s of aspiration Short-Term Goal (modified): Pt will consume 120 mL trials of thin liquids w/o clinical s/s of penetration or aspiration. Status: Progressing as expected. FIELD CONSULTANT provided skilled monitoring of trials of thin water. Pt demonstrated coughing following 1st trial after sitting up in chair. Clinician reviewed safe swallowing strategies (chin tuck, supraglottic swallow). Pt completed 10/10 trials of sips of thin liquids by cup, without cueing, and tolerated well with no clinical s/s aspiration . Speech Goal 2 Memory Speech Goal 2 Comments Long-Term Goal: Pt will use compensatory strategies to encode and retrieve 4/4 new items after delay of 30 minutes, Independently, for independence in mobility safety, ADLs and community access. Short-term Goal: Pt will use compensatory strategies to encode and retrieve 3/4 new items after delay of 5 minutes, given Moderate skilled instruction and cueing. Status: Progressing as expected. For Total Hip Precautions, patient recalled 2/3 I' ly, required semantic cue for 3rd. Repeated instruction at end of session and recalled 3/3 I' ly. For 4 new pictures, patient required moderate cueing to relate a personal association for each image, then recalled 4/4 immediately and after delays of 1, 3 and 5 minutes. Speech Goal 3 Problem Solving Speech Goal 3 Comments Long-Term Goal: Pt will use compensatory strategies to solve moderately complex routine problems, with 100% accuracy, Independently, for safety and ADLs such as shopping, time and money management. Short-Term Goal: Pt will use compensatory strategies to solve moderately complex routine problems, with 80% accuracy, given Moderate skilled instruction and cueing. Status: Progressing as expected. Pt reviewed hearing-aid battery replacement, and sequential steps to for [id number]-to-chair transfer. Patient verbalized safety precautions, pertaining to hip precautions, I'ly and accurately . Social Work: Goals Discharge Plan return home with home care svs and family support Potential for Family Training pt's is involved and supportive Anticipated Discharge Home Destination Discharge With home care svs and family support Care Plan: Care Plan ADL's - Improve/Maintain Start: 11/29/17 10:21 Freq: QSHIFT Status: Active Target: Protocol: Activity Type Activity Date Activity User E-Sign Co-Sign Detail Recorded Client Recorded Date Recorded By Document 12/02/17 10:49 [id number] [id number] 12/02/17 10:49 [id number] 12/02/17 10:49 PMRU Outcome: ADL's/ADL Transfers Orders/Interventions Occupational Therapy Evaluation & Treatment Device Yes Patient to receive OT 5x/wk for 60-120 Therex min/day Self Care Management Group Therapy UE/LE ADL's with Assist Yes ADL Transfers with Assist Yes Toileting: Transfers,Clothing Management Yes ,Hygeine w/Assist Light Kitchen/Laundry w/Assist Yes Progression Toward Outcome/Goals Progressing Outcome/Goals Met Pt. dons socks using sock aide with no verbal cues this date . Pt. does continue to be limited with difficulty remember THP and AE to assist with donning pants. Cardiovascular- Improve/Maintain Start: 11/27/17 17:59 Freq: QSHIFT Status: Active Target: Protocol: Activity Type Activity Date Activity User E-Sign Co-Sign Detail Recorded Client Recorded Date Recorded By Document 12/12/17 01:26 [id number] [id number] 12/12/17 01:27 [id number] 12/12/17 01:26 PMRU Outcome: Cardiovascular Vital Signs q Shift for 48hrs Then BID Yes Daily Weight Ordered No Current Cardiovascular Outcome/Goal Maintain/ Achieve Baseline HR, BP , Perfusion Free of Abnormal Cardiac Symptoms Progression Toward Outcome/Goal Progressing Communication-Improve/Maintain Start: 11/27/17 17:59 Freq: QSHIFT Status: Active Target: Protocol: Activity Type Activity Date Activity User E-Sign Co-Sign Detail Recorded Client Recorded Date Recorded By Document 12/13/17 01:00 [id number] 12/13/17 01:20 [id number] 12/13/17 01:00 PMRU Outcome: Communication/Cognitive Status Outcome/Goals Makes Needs Known Effectively Progression Toward Outcomes/Goals Progressing DVT Prophylaxis- Improve/Maintain Start: 11/27/17 17:59 Freq: QSHIFT Status: Active Target: Protocol: Activity Type Activity Date Activity User E-Sign Co-Sign Detail Recorded Client Recorded Date Recorded By Document 12/12/17 01:26 [id number] [id number] 12/12/17 01:27 [id number] 12/12/17 01:26 PMRU Outcome: DVT Prophylaxis Outcome/Goals Remains Free of DVT Free of complications from current DVT Complies with DVT Prophylaxis /Treatment Progression Toward Outcome/Goals Progressing Education-Improve/Maintain Start: 11/27/17 17:59 Freq: QSHIFT Status: Active Target: Protocol: Activity Type Activity Date Activity User E-Sign Co-Sign Detail Recorded Client Recorded Date Recorded By Document 12/12/17 01:26 [id number] [id number] 12/12/17 01:27 [id number] 12/12/17 01:26 PMRU Outcome: Education Outcome/Goals Encourage Questions Progression Toward Outcome/Goals Progressing Metabolic Status- Improve/Maintain Start: 11/27/17 17:59 Freq: QSHIFT Status: Active Target: Protocol: Activity Type Activity Date Activity User E-Sign Co-Sign Detail Recorded Client Recorded Date Recorded By Document 12/12/17 01:26 [id number] [email or web address] 12/12/17 01:27 [id number] 12/12/17 01:26 PMRU Outcome: Metabolic Status Have Fingersticks Been Ordered Yes Fingerstick Order Frequency AC & HS Outcome/Goals Maintain/ Improve Metabolic Status Progression Toward Outcome/Goals Progressing Mobility- Improve/Maintain Start: 11/27/17 17:59 Freq: QSHIFT Status: Active Target: Protocol: Activity Type Activity Date Activity User E-Sign Co-Sign Detail Recorded Client Recorded Date Recorded By Document 12/09/17 10:00 [id number] 12/09/17 16:23 [id number] 12/09/17 10:00 PMRU Outcome: Mobility Physical Therapy Evaluation and Yes Treatment Activity OOB with Assistance Yes WBAT Yes: R LE Device Yes: front wheeled walker Assistance Yes: CGA Patient to be seen 5x/wk for 60-120 min/ Therex day for: Mobility Training Gait Training Balance Outcome/Goals Maintain/ Achieve Baseline Mobility Status Improve Mobility Status Demonstrates Proper Use of Assistive Devices Free from Complications of Immobility Progression Toward Outcome/Goals Progressing Outcome/Goals Met Improve Mobility Status Demonstrates Proper Use of Assistive Devices Outcome/Goals Met Comment pt improved with ability to ambulate x100' with CGA and RW before requiring sitting rest break Bed Mobility Yes: Independent Transfers Yes: Ind with walker Gait x ft Yes: Ind with walker x150' W/C Mobility x ft No Up/Down Stairs Yes: Sup x5 steps with rail With HEP Yes Nutrition/Swallowing- Improve/Maintain Start: 11/30/17 17:00 Freq: QSHIFT Status: Active Target: Protocol: Activity Type Activity Date Activity User E-Sign Co-Sign Detail Recorded Client Recorded Date Recorded By Document 12/12/17 01:26 [id number] 12/12/17 01:27 [id number] 12/12/17 01:26 PMRU Outcome: Nutrition/Swallowing Outcome/Goals Demonstrates Adequate Hydration/ Prevents Dehydration Maintain/ Improve Nutritional Status Progression Toward Outcome/Goals Progressing Pain/Comfort- Improve/Maintain Start: 11/27/17 17:59 Freq: QSHIFT Status: Complete Target: Protocol: Activity Type Activity Date Activity User E-Sign Co-Sign Detail Recorded Client Recorded Date Recorded By Document 12/09/17 10:04 [id number] 12/09/17 10:11 [id number] 12/09/17 10:04 PMRU Outcome: Pain/Comfort Outcome/Goals Achieves Acceptable Comfort/Pain Level as Determined by Patient/Condit Maintain Comfort Level Allowing Patient to Fully Participate in Rehab Progression Toward Outcome/Goals Progressing Respiratory - Improve/Maintain Start: 11/27/17 17:59 Freq: QSHIFT Status: Active Target: Protocol: Activity Type Activity Date Activity User E-Sign Co-Sign Detail Recorded Client Recorded Date Recorded By Document 12/12/17 01:26 [id number] 12/12/17 01:27 [id number] 12/12/17 01:26 PMRU Outcome: Respiratory Does Patient Have a Trach No Outcome/Goals Maintain/ Improve O2 Sat per MD Order Maintain/ Improve Baseline Respiratory Status Remain Aspiration Free Progression Toward Outcome/Goals Progressing Outcome/Goals Met Comment [address] Safety- Improve/Maintain Start: 11/27/17 17:59 Freq: QSHIFT Status: Active Target: Protocol: Activity Type Activity Date Activity User E-Sign Co-Sign Detail Recorded Client Recorded Date Recorded By Document 12/12/17 01:26 [id number] 12/12/17 01:27 [id number] 12/12/17 01:26 PMRU Outcome: Safety Outcome/Goals Remain Free of Injury or Harm Cooperates with Safety Measures for Least Restrictive Environment Prevent Falls/ Injury Equipment Needed Progression Toward Outcome/Goals Progressing Outcome/Goals Met Comment PA in place Skin- Improve/Maintain Start: 11/27/17 17:59 Freq: QSHIFT Status: Active Target: Protocol: Activity Type Activity Date Activity User E-Sign Co-Sign Detail Recorded Client Recorded Date Recorded By Document 12/12/17 01:26 [id number] 12/12/17 01:27 [id number] 12/12/17 01:26 PMRU Outcome: Skin Skin Risk Level High Skin Orders Air Mattress Heels Off Bed Outcome/Goals Maintain/ Improve Skin Intergrity Free from Decubitus Maintain/ Improve Wound Status Progression Toward Outcome/Goals Progressing Medicine Note: Length of Stay: 2 days Anticipated Discharge Destination: Home Tentative Discharge Date: 12/15/17 Discharged to: home
--- NOTE | 2017-12-13 16:03 | PN ---
Progress Note Date of Service: 12/13/17 Note: AIDAN LEONE was visited. Therapy notes read and reviewed. He was discussed in interdisciplinary team rounds. Moving well. Can go home tomorrow. Current Medications: Active Medications Generic Name Dose Route Start Last Admin Trade Name Freq PRN Reason Stop Dose Admin Acetaminophen 650 mg 11/27/17 09:28 12/12/17 03:04 Tylenol Tab* PO 650 mg Q6H PRN Administration FEVER > 101 Al Hydrox/Mg Hydrox/Simethicone 30 ml 11/27/17 09:28 Maalox Plus* PO Q6H PRN INDIGESTION Apixaban 5 mg 11/29/17 21:00 12/13/17 09:27 Eliquis* PO 5 mg BID LUIS Administration Atorvastatin Calcium 10 mg 11/27/17 17:00 12/12/17 16:47 Lipitor* PO 10 mg 1700 LUIS Administration Protocol Benzonatate 100 mg 11/27/17 09:48 Tessalon Cap* PO BID PRN COUGH Bisacodyl 10 mg 11/27/17 09:28 Dulcolax Supp* KS DAILY PRN CONSTIPATION Budesonide 0.5 mg 11/28/17 09:00 12/13/17 07:59 Pulmicort Neb* INH 0.5 mg DAILY LUIS Administration Dextrose 12.5 gm 11/27/17 09:42 D50w Syringe 50 Ml* IV PUSH .FOR FS < 60 - SS PRN FS < 60 Digoxin 0.125 mg 11/27/17 17:00 12/12/17 16:47 Lanoxin Tab* PO 0.125 mg 1700 LUIS Administration Docusate Sodium 100 mg 12/01/17 16:32 Colace Cap* PO BID PRN CONSTIPATION Famotidine 20 mg 11/28/17 09:00 12/13/17 09:27 Pepcid Tab* PO 20 mg DAILY LUIS Administration Folic Acid 1 mg 11/28/17 09:00 12/13/17 09:27 Folvite Tab* PO 1 mg DAILY LUIS Administration Insulin Human Lispro 0 units 11/27/17 17:15 12/13/17 12:24 Humalog* SUBCUT 2 units ACHS LUIS Administration Protocol Ipratropium [place] 0.5 mg 11/27/17 21:00 12/13/17 07:59 Atrovent 0.5 Mg Neb.Gertrude* INH 0.5 mg BID LUIS Administration Lorazepam 0.5 mg 12/06/17 16:05 12/11/17 20:29 Ativan Tab(*) PO 0.5 mg BEDTIME PRN Administration INSOMNIA Magnesium Hydroxide 30 ml 11/27/17 09:28 Milk Of Magnesia Liq* PO Q6H PRN CONSTIPATION Metformin HCl 500 mg 11/27/17 17:00 12/13/17 09:27 Glucophage* PO 500 mg 0800,1700 LUIS Administration Multivitamins/Minerals 1 tab 11/28/17 09:00 12/13/17 09:27 Theragran/Minerals Tab* PO 1 tab DAILY LUIS Administration Pharmacy Consult 1 note 11/27/17 10:00 Zosyn Per Pharmacy* FOLLOW UP .ZOSYN PER PHARMACY LUIS Polyethylene Glycol/Electrolytes 17 gm 11/27/17 09:47 Miralax* PO DAILY PRN CONSTIPATION Polyvinyl Alcohol 1 drop 11/27/17 09:47 Polyvinyl Alcohol 1.4% Opth* BOTH EYES Q2H PRN DRY EYE Senna 2 tab 11/27/17 21:00 12/12/17 20:21 Senokot Tab* PO 2 tab BEDTIME LUIS Administration Thiamine HCl 100 mg 11/28/17 09:00 12/13/17 09:27 Vitamin B-1 Tab* PO 100 mg DAILY LUIS Administration Vital Signs: Vital Signs Temp Pulse Resp BP Pulse Ox 98.4 F 54 26 111/55 98 12/13/17 15:39 12/13/17 15:39 12/13/17 15:39 12/13/17 15:39 12/13/17 15:39 Lab Results: Laboratory Results - last 24 hr 12/12/17 12/12/17 12/12/17 07:39 13:17 16:20 POC Glucose (mg/dL) 92 181 H 179 H 12/12/17 20:11 POC Glucose (mg/dL) 164 H Exam: LUNGS: Scarce rales HEART: Irregularly irregular. S1, S2 ABDOMEN: Soft EXTREMITIES: right hip wound clean. Able to move four extremities. Alert and oriented. Assessment/Plan: 1. Right Hip Fracture: S/P Hemiarthroplasty. PT/OT. Follow up with Ortho 2. Atrial fibrillation: Eliquis/Dig 3. DVT Prophylaxis: Eliquis 4. Diabetes: Glucophage/SSI 5. Advanced directives: DNR. is HCP. Has MOLST 6. COPD: Oxygen/Pulmicort Neb/Atrovent Neb 7. CAD: Pravastatin/Eliquis 8. Dysphagia: Will not do swallow study, as he seems able to handle diet despite occasional cough. 12/13/17 16:03
[2017-12-13] MEDS: Atorvastatin* 10 MG TAB PO SCH (17:20)
[2017-12-13] MEDS: Digoxin TAB* 0.125 MG PO SCH (17:25)
[2017-12-13] MEDS: Senna TAB PO SCH (21:10)
[2017-12-14] MEDS: Acetaminophen TAB* 325 MG PO PRN (00:31)
[2017-12-14 05:02] VITALS: BP 118/67
[2017-12-14] MEDS: Insulin LISPRO* 1 UNITS UNIT SUBCUT SCH (07:47)
[2017-12-14] MEDS: Ipratropium 0.5MG/2.5ML NEB* 0.5 MG/2.5 ML NEB.SOLN INH SCH (08:18)
[2017-12-14] MEDS ORDERED: Budesonide NEB* 0.5 MG/2 ML NEB.SOLN INH SCH (09:00)
[2017-12-14] MEDS: metFORMIN* 500 MG TAB PO SCH (09:00)
[2017-12-14] MEDS: Folic Acid TAB* 1 MG PO SCH (09:00)
[2017-12-14] MEDS: Apixaban* 5 MG TAB PO SCH (09:00)
[2017-12-14] MEDS: Famotidine TAB* 20 MG PO SCH (09:00)
[2017-12-14] MEDS: Multivitamins/Minerals TAB PO SCH (09:00)
[2017-12-14] MEDS: Thiamine TAB* 100 MG TAB PO SCH (09:01)
--- NOTE | 2017-12-15 21:29 | DS ---
CC: Dr. Pawel Herring DISCHARGE SUMMARY: DATE OF ADMISSION: 11/27/17 DATE OF DISCHARGE: 12/14/17 DISCHARGE DIAGNOSES: 1. Right hip fracture. 2. Status post hemiarthroplasty of the same. 3. Hospital-acquired pneumonia. 4. Chronic obstructive pulmonary disease. 5. Noninsulin-dependent diabetes mellitus. 6. Atrial fibrillation. 7. Coronary artery disease. 8. Dementia. 9. Osteoarthritis of the knees. 10. Hypertension. HISTORY OF ILLNESS AND HOSPITAL COURSE: For a complete history of the events leading up to his rehab stay, please see the history and physical dictated by Dr. Natalie Watkins on 11/27/17. While on e rehab unit, the patient had several episodes of chest pain. He had an EKG and troponins, which wer e negative as well as chest x-rays, which did not show anything. The patient was maintained on digox in and Eliquis for his atrial fibrillation as well as for DVT prophylaxis. The patient remained on ox ygen during his rehab stay. The patient's wound healed well. The patient was seen by both physical therapy and occupational therapy as well as speech therapy while on the rehab unit. Speech therapy s aw him for some coughing after he eating a meal. It was felt that he might have had some coughing, b ut it was not worse modifying his diet as he did not show signs and symptoms of aspiration such as ru nny nose or eye tearing. With physical therapy at the time of admission, the patient required modera te amount of assistance of 2 people to transfer. He could walk 15 feet with moderate amount of venita tance of 2 people. With occupational therapy at the time of admission, the patient required total ass istance for lower body dressing, total assistance for toileting, total assistance for toilet transfer s. By the time of discharge, the patient was modified independent with toileting, supervision with t oilet transfers, supervision with lower body dressing. He was ambulating 150 feet independently. e patient's came in for family training. He was discharged to home on 12/14/17. DISCHARGE DIET: Regular. DISCHARGE MEDICATIONS: 1. Eliquis 5 mg twice daily. 2. Digoxin 0.125 mg daily. 3. Pepcid 20 mg daily. 4. Metformin 500 mg at 8 a.m. and 5 p.m. 5. Mevacor 40 mg daily. 6. Brovana 15 mcg inhaled twice daily. SERVICES AFTER DISCHARGE: Through the visiting nurse service, he will have home nursing, home physic al therapy, and a home health aide. Follow up with Dr. Rema Gonzalez in 1 month as well as with Dr. Compa Herring. [id number]/[facility] #: [id number]
== END 2017-12-14 11:25 | disposition home health service (06) | DRG 559 ==
LOC: PMRU 15:01
PROVIDERS: ADMIT Physical Medicine & Rehabilitation; ATTEND Physical Medicine & Rehabilitation
PROC: F07Z5ZZ Bed Mobility Treatment (ICD-10-PCS; principal; 2017-11-27)
PROC: F07Z9ZZ Gait Training/Functional Ambulation Treatment (ICD-10-PCS; 2017-11-27)
PROC: F07Z8ZZ Transfer Training Treatment (ICD-10-PCS; 2017-11-27)
PROC: F07Z4ZZ Wheelchair Mobility Treatment (ICD-10-PCS; 2017-11-27)
PROC: F08Z0ZZ Bathing/Showering Techniques Treatment (ICD-10-PCS; 2017-11-27)
PROC: F08Z1ZZ Dressing Techniques Treatment (ICD-10-PCS; 2017-11-27)
PROC: F08Z3ZZ Feeding/Eating Treatment (ICD-10-PCS; 2017-11-27)
DX: S72.001D Fracture of unspecified part of neck of right femur, subsequent encounter for closed fracture with routine healing (principal); J18.9 Pneumonia, unspecified organism; F05 Delirium due to known physiological condition; J96.11 Chronic respiratory failure with hypoxia; W01.0XXD Fall on same level from slipping, tripping and stumbling without subsequent striking against object, subsequent encounter; Z47.1 Aftercare following joint replacement surgery; Z96.641 Presence of right artificial hip joint; Y95 Nosocomial condition; J44.9 Chronic obstructive pulmonary disease, unspecified; R07.9 Chest pain, unspecified; E11.9 Type 2 diabetes mellitus without complications; I48.2 Chronic atrial fibrillation; I25.10 Atherosclerotic heart disease of native coronary artery without angina pectoris; I11.9 Hypertensive heart disease without heart failure; F03.90 Unspecified dementia, unspecified severity, without behavioral disturbance, psychotic disturbance, mood disturbance, and anxiety; Z66 Do not resuscitate; F10.10 Alcohol abuse, uncomplicated; M17.0 Bilateral primary osteoarthritis of knee; R32 Unspecified urinary incontinence; R13.10 Dysphagia, unspecified; R15.9 Full incontinence of feces; Z99.81 Dependence on supplemental oxygen; Z79.1 Long term (current) use of non-steroidal anti-inflammatories (NSAID); Z79.899 Other long term (current) drug therapy; Z79.84 Long term (current) use of oral hypoglycemic drugs; Z79.01 Long term (current) use of anticoagulants; Z82.49 Family history of ischemic heart disease and other diseases of the circulatory system; Z80.1 Family history of malignant neoplasm of trachea, bronchus and lung; Z87.891 Personal history of nicotine dependence
CPT/HCPCS: 36415; 71045; 71046; 80053; 84484; 85025; 87899; 93005; 94640; A9270-GY; J2543

== ENCOUNTER 2018-07-14 07:57 | Emergency (ER) | payer MEDICARE ==
--- OUTSIDE RECORDS SUMMARY | 2018-07-14 08:02 | XMS REPORT | Continuity of Care Document ---
:1930 External Reference #:[id number] Author Name Giana Burrows PA-C Address [address] [place] [address] Care Team Providers Name Role Phone Pawel Herring MD Primary Care Physician Unavailable Payers Type Date Identification Numbers Payment Provider Subscriber Policy Number: [id number] [facility] Anurag Styles Dae PayID: [id number] [address] [place] [address] Policy Number: [id number] [facility] Anurag Pearl PayID: [id number] [address] [place] [address] Advance Directives Description No Information Available Problems Date Description Provider Status Onset: 07/23/2013 Essential hypertension Amanda Akins NP Active Family History Description No Information Available Social History Type Date Description Comments Sex Unknown Occupation Retired [employer] Tobacco Use Start: Unknown End: Former Cigarette Smoker 1 Unknown Pack Daily Tobacco Use Start: Unknown Never Smoked Cigars Tobacco Use Start: Unknown Never Smoked A Pipe Smokeless Tobacco Never Used Smokeless Tobacco ETOH Use Currently occasionally consumes alcohol Tobacco Use Start: Unknown End: Patient is a former smoker Unknown Smoking Status Reviewed: 10/30/17 Patient is a former smoker Allergies, Adverse Reactions, Alerts Description No Known Drug Allergies Medications Medication Date Status Form Strength Qnty SIG Indications Ordering Provider Furosemide Active Tablets 40mg Unknown 000 Lovastatin Active Tablets 40mg Unknown 000 Eliquis Active Tablets 2.5mg 1 by Cris Herring MD twice a day Digoxin Active Tablets 125mcg Cris Herring MD Famotidine Active Tablets 20mg 1 by Cris Herring MD every day Symbicort /00/0 Hx Unknown 000 - 017 Losartan 00/0 Hx Unknown Potassium 000 - 017 Sotalol HCL 00/0 Hx Unknown - 017 Cardizem 00/0 Hx Unknown 000 - 017 Spiriva 00/0 Hx Unknown Handihaler 000 - 017 Metformin HCL 000 Hx Tablets 500mg Unknown - 017 Eliquis 000 Hx Tablets 2.5mg Unknown - 017 Famotidine 0 Hx Tablets 20mg Unknown - 017 Digox 0 Hx Tablets 125mcg Unknown 017 Omeprazole [address] 20mg Unknown - 017 Potassium 00/0 Hx Tablets ER 10Meq (1080 Unknown Citrate ER 000 - mg) 017 Immunizations Description No Information Available Vital Signs Date Vital Result Comment 06/21/2018 10:32am Weight 165.00 lb Weight 74.844 kg 10/31/2017 11:07am Weight 165.00 lb Weight 74.844 kg Height 70 inches 5'10" Height in cm's 177.8 cm BMI (Body Mass Index) 23.7 kg/m2 09/27/2016 9:51am BP Systolic 147 mmHg BP Diastolic 85 mmHg Heart Rate 75 /min Respiratory Rate 17 /min Weight 173.00 lb Weight 78.473 kg Height 70 inches 5'10" Height in cm's 177.8 cm BMI (Body Mass Index) 24.8 kg/m2 07/23/2013 10:55am BP Systolic 110 mmHg BP Diastolic 86 mmHg Heart Rate 70 /min Respiratory Rate 16 /min Weight 189.00 lb Weight 85.730 kg Height 70.50 inches 5'10.50" Height in cm's 179.1 cm BMI (Body Mass Index) 26.7 kg/m2 Results Description No Information Available Procedures Date Code Description Status 06/21/2018 65138 Removal Wax Impaction Completed 06/21/2018 90585 Removal Foreign Body External Ear W/O Anesthesia Completed 10/31/2017 65232 Removal Wax Impaction Completed 09/27/2016 04693 Removal Wax Impaction Completed 07/23/2013 70100 Contol Nasal Hemorrhage, Anterior, Simple Completed 11/22/2003 56016 Control Nasal Hemorrhage (Extensive Cautery/Packing) Any Completed Method 08/13/2003 71581 Nasal Endoscopy, Diagnostic Completed 08/01/2003 47379 Anterior/Posterior Packing Completed 08/01/2003 98072 Control Nasal Hemorrhage (Extensive Cautery/Packing) Any Completed Method Encounters Type Date Location Provider Dx Diagnosis Office Visit 08/01/2003 [place],After 07/18/07 Baljeet Clifford, 784.7 Epistaxis 5:30p M.D. Office Visit 08/01/2003 [place],After 07/18/07 Baljeet Clifford 784.7 Epistaxis 2:15p M.D. Office Visit 08/01/2003 [place],After 07/18/07 Baljeet Clifford 784.7 Epistaxis 12:45p M.D. Plan of Treatment No Information Available
[2018-07-14 08:09] VITALS: BP 108/65
--- NOTE | 2018-07-14 08:46 | UC ---
Respiratory Complaint HPI - HPI Summary HPI Summary: ONSET OF COUGH, RHINITIS AND CHEST CONGESTION 3 DAYS AGO. PATIENT REPORTS INTERMITTENT SENSATION OF SHORTNESS OF BREATH, FATIGUE AND WEAKNESS. DENIES FEVER. NO NAUSEA. HAS COPD AND USES HOME O2 NEEDED. - History of Current Complaint Chief Complaint: UCRespiratory Stated Complaint: COUGH RESP ISSUE Time Seen by Provider: 07/14/18 08:19 Hx Obtained From: Patient, Family/Sheriffs - Onset/Duration: Gradual Onset, Lasting Days, Still Present Timing: Constant Severity Initially: Moderate Severity Currently: Moderate Pain Intensity: 0 Pain Scale Used: 0-10 Numeric Character: Cough: Nonproductive Aggravating Factors: Nothing Alleviating Factors: Nothing Associated Signs And Symptoms: Positive: URI, Nasal Congestion. 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 - Family History Known Family History: Positive: Diabetes Negative: Cardiac Disease, Hypertension - Social History Alcohol Use: couple of beer a day Substance Use Type: None Smoking Status (MU): Former Smoker Type: Cigarettes Length of Time of Smoking/Using Tobacco: 40+ YEARS OF SMOKING When Did the Patient Quit Smoking/Using Tobacco: 20 yrs - Immunization History Most Recent Influenza Vaccination: 2016 fall Most Recent Tetanus Shot: unknown Most Recent Pneumonia Vaccination: 2014 Hx Tetanus, Diphtheria Vaccination: Yes - 2011 Vaccination Up to Date: Yes Review of Systems All Other Systems Reviewed And Are Negative: Yes Constitutional: Positive: Fatigue ENT: Positive: Nasal Discharge Respiratory: Positive: Shortness Of Breath, Cough Cardiovascular: Positive: Negative Gastrointestinal: Positive: Negative Neurological: Positive: Weakness Physical Exam Triage Information Reviewed: Yes Appearance: Well-Appearing, No Pain Distress, Well-Nourished Vital Signs: Initial Vital Signs Temp 98.7 F 07/14/18 08:02 Pulse 73 07/14/18 08:02 Resp 16 07/14/18 08:02 BP 108/65 12/28/18 08:02 Pulse Ox 95 07/14/18 08:02 Vital Signs Reviewed: Yes Eyes: Positive: Conjunctiva Clear ENT: Positive: Hearing grossly normal Neck: Positive: Supple, Nontender, No Lymphadenopathy Respiratory: Positive: No respiratory distress, No accessory muscle use, Rhonchi - OCCASIONAL DIFFUSELY Cardiovascular: Positive: Other: - IRREGULAR Abdomen Description: Positive: Soft Musculoskeletal: Positive: No Edema Neurological: Positive: Alert Psychological: Positive: Normal Response To Family, Age Appropriate Behavior Skin: Negative: Rashes UC Diagnostic Evaluation - Laboratory O2 Sat by Pulse Oximetry: 95 - Radiology Radiology Interpretation Completed By: Radiologist Summary of Radiographic Findings: 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 Overall no changes noted since January 09, 2018. Respiratory Course/Dx - Course Course Of Treatment: WHILE IN ROOM PATIENTS BLEW HIS NOSE AND DEVELOPED A NOSEBLEED. THIS STOPPED EASILY WITH DIRECT PRESSURE. PATIENT STATES HE HAS BEEN BLOWING HIS NOSE A LOT OVER THE PAST FEW DAYS SINCE THE ONSET OF HIS RESPIRATORY ILLNESS. NORMALLY USES AYR NASAL SPRAY DAILY TO KEEP HIS NARES LUBRICATED HE REPORTS HE DOES GET NOSEBLEEDS FROM TIME TO TIME BUT ADMITS HE HAS NOT BEEN USING IT OVER THE PAST SEVERAL DAYS. CXR NON ACUTE. WILL COVER WITH DOXY. F/U IF NEEDED. - Differential Dx/Diagnosis Provider Diagnosis: Bronchitis Discharge - Sign-Out/Discharge Documenting (check all that apply): Patient Departure All imaging exams completed and their final reports reviewed: Yes - Discharge Plan Condition: Stable Disposition: HOME Prescriptions: Doxycycline Monohydrate 1 cap PO BID #20 cap Patient Education Materials: Acute Bronchitis (ED) Referrals: Pawel Herring MD [Primary Care Provider] - If Needed Additional Instructions: CHEST XRAY TODAY WITHOUT ANY ACUTE PROCESS. YOUR SYMPTOMS MAY BE VIRALLY MEDIATED BUT GIVEN YOUR UNDERLYING LUNG DISORDER WE WILL COVER YOU WITH ANTIBIOTICS. IF YOU START THE MEDICINE BE SURE TO TAKE IT FOR THE FULL COURSE. REST, HYDRATE, OTC MEDS NEEDED. SEEK FOLLOW-UP WITH YOUR PCP IF YOU ARE NOT IMPROVING OVER THE NEXT 1-2 WEEKS. GO TO ED WITHOUT FAIL IF YOU DEVELOP WORSENING SHORTNESS OF BREATH, FEVER, CHEST PAIN, NAUSEA, SWEATS, DIZZINESS OR ANY OTHER CONCERNING SYMPTOMS. - Billing Disposition and Condition Condition: STABLE Disposition: Home
== END 2018-07-14 09:45 | disposition home or self-care (01) ==
LOC: UCEAST 07:57
DX: J40 Bronchitis, not specified as acute or chronic (principal); J44.9 Chronic obstructive pulmonary disease, unspecified; Z99.81 Dependence on supplemental oxygen; E11.9 Type 2 diabetes mellitus without complications; I10 Essential (primary) hypertension; Z87.891 Personal history of nicotine dependence
CPT/HCPCS: 71046; 99212; G0463

== ENCOUNTER 2018-08-15 09:52 | Emergency (ER) | payer MEDICARE ==
--- OUTSIDE RECORDS SUMMARY | 2018-08-15 09:57 | XMS REPORT | Continuity of Care Document ---
:1930 External Reference #:[id number] Author Name Maegan Andrea Care Team Providers Name Role Phone Pawel Herring III, MD Primary Care Physician Unavailable Payers Type Date Identification Numbers Payment Provider Subscriber Effective: Policy Number: [id number] Medicare Aidan Pearl 1995 PayID: [id number] [address] [place] [address] Effective: 2013 Policy Number: [facility] Aidan Pearl [id number] PayID: [id number] [address] [place] [address] Expires: 2013 Policy Number: [id number] [facility] Aidan Pearl PayID: [id number] [address] [address] [place] [address] Advance Directives Description No Information Available Problems Date Description Provider Status Onset: 05/26/2011 [...] Problems Social History Type Date Description Comments Sex Unknown Marital Status Lives With Occupation Retired ETOH Use Currently consumes 2-5 drinks per week alcohol per pt Tobacco Use Start: Unknown End: Patient is a former smoked for 45+ Unknown smoker years, 1ppd, quit in 1999 Recreational Drug Use Denies Drug Use Smoking Status Reviewed: 08/14/18 Patient is a former smoked for 45+ smoker years, 1ppd, quit in 1999 Exercise Type/Frequency Does not exercise Allergies, Adverse Reactions, Alerts Description No Known Drug Allergies Medications Medication Date Status Form Strength Qnty SIG Indications Ordering Provider Lisinopril-Hy Active Tablets 20-12.5mg 90tabs Take 1 Pawel E. drochlorothia 018 Tablet By alberto Herring Mouth M.D. Every Day Freestyle Active Strips 100unit test weekly Pawel Hinojosa Precision Garth 018 s or as Nevaeh Blood Glucose directed M.D. Test Strips for Dx. E11.9 Metformin HCL Active Tablets 500mg 360tabs take 2 E11.9 Pawel E. 017 tablets by Nevaeh, mouth twice M.D. a day Famotidine Active Tablets 20mg 90tabs Take 1 Pawel E. 017 Tablet By Nevaeh, Mouth M.D. Every Day Nebulizer Active Kit QS for use 4 Pawel E. Kit/Tubing/Mo 016 times daily zion Herring as needed M.D. Digox Active Tablets 125mcg 90tabs 1 by mouth R94.31 Rocael D. 016 every day Brand, M.D. Eliquis Active Tablets 2.5mg 180tabs 1 tablet by R94.31 Rocael DDennis 016 mouth twice Brand, a day- M.D. blood thinner. I48.2 Brovana 09/01/2015 Active Nebulizer 15mcg/2ML 60units 1 dose by Pawel E. nebulizer Nevaeh, twice a day M.D. Budesonide 09/01/2015 Active Suspension 0.5mg/2ML 60units 1 dose twice Pawel E. a day via Nevaeh, nebulizer ( M.DDennis used as needed ) Ipratropium 09/01/2015 Active Solution 0.02% 150ml inhale the Pawel E. [place] contents of Nevaeh, one vial via M.D. nebulizer twice a day Oxygen 08/13/2015 Active Misc 1units please use o2 Pawel E. at 2l/min Nevaeh during M.D. exertion. please provide pt with portable o2 concentrator Albuterol 10/22/2009 Active Nebulizer (2.5mg/3ML 100units via/nebulizer Pawel E. Sulfate ) 0.083% use q 4-6 hrs samara Herring M.DDennis of breath Lovastatin 10/22/2009 Active Tablets 40mg 90tabs Take 1 Tablet Pawel E. By Mouth Nevaeh Every Night M.DDennis AT Bedtime Aleve 01/10/2008 Active Tablets 220mg 1 po qam prn Pawel Herring M.D. Oxygen Active used Unknown Concentrato continuous at r night Compression Active Misc 20-30 MMHG Unknown Stockings Knee Highs Tylenol Active Capsules 325mg 2 tablets Unknown every 4 hours as needed for pain Pepcid Active Tablets 20mg take 1 tablet Unknown by mouth two times daily Percocet Active Tablets 5-325mg 1-2 tabs by Unknown mouth every 4-6 hours as needed pain Zosyn Active Solution 3-0.375GM/ iv every 8 Unknown 50ML hours x 42 days through [facility] Azithromyci 06/01/2017 Hx Tablets 250mg 6tabs two tabs day Virgil bobo, one Dhaval Nolan, 06/06/2017 daily till M.D.,FACP gone Potassium 10/22/2015 Hx Tablets ER 10Meq 90tabs take 1 tab Pawel E. Citrate ER - (1080 mg) daily Nevaeh, 02/18/2016 Vinicius Lasix 09/30/2015 Hx Tablets 40mg 90tabs 1 po daily Pawel Hinojosa - Nevaeh, 08/10/2017 Vinicius Cardizem CD 08/25/2015 Hx Caps [...] CD - 24HR every day Nevaeh, 08/21/2015 MAmol Sulfamethox 07/15/2015 Hx Tablets 800-160mg 28tabs 1 tab by N39Dennis Ramirez azole/Trime - mouth twice a 0 [place], [employer] thoprim DS 08/21/2015 day x 2 weeks Furosemide 11/26/2014 Hx Tablets 20mg 30tabs take 1 tablet 782. Pawel E. - by mouth 3 Nevaeh, 02/05/2015 every morning M.D. Azithromyci 08/31/2013 Hx Tablets 250mg 6tabs two tabs day Pawel Hinojosa n - one, one Nevaeh, 12/13/2013 daily till M.D. gone Proair HFA 12/04/2012 Hx Aerosol 108(90Base 3units 2 puffs by Pawel E. - ) mcg/Act mouth four Nevaeh, 02/18/2016 times a day M.D. as needed Prednisone 04/05/2012 Hx Tablets 20mg 30tabs 1 po qd for 496 Pawel E. - 5-7 days, Nevaeh, 08/31/2013 then 1/2 tab M.D. daily for 5-7 days Ciprofloxac 03/17/2012 Hx Tablets 500mg 20tabs 1 tab po bid 466. Sri in HCL - x 10 days 0 [facility], 04/05/2012 N.P. Prednisone 03/17/2012 Hx Tablets 10mg 24tabs 5 tab x2 day, 466. Sri - 4 tab x 2day, 0 [facility], 04/05/2012 3 tab x 1 N.P. day, 2 tab x1day, 1 tab x 1day Nystatin 03/14/2012 Hx Suspension [id number] 60ml 400,000 units Sri - /ML 4 times/day; Niko, 04/05/2012 swish in the N.P. mouth & retain for as long as possible before swallow, use x48 after symptoms resolv Cheratussin 03/10/2012 Hx Syrup 100-10mg/5 236ml 5-10 ml po 466. Sri ac - ML q4-6h prn 0 [facility], 04/05/2012 N.P. Augmentin 03/10/2012 Hx Tablets 875-125mg 20tabs bid x 10 days 466. Sri - 0 [facility], 03/17/2012 N.P. Xopenex HFA 12/29/2011 Hx Aerosol 45mcg/Act 3units 2 puffs qid Pawel E. - prn Nevaeh, 12/04/2012 M.D. Proair HFA 12/15/2011 Hx Aerosol 108(90Base 3units 2 Puffs qid Pawel E. - ) mcg/ac prn Nevaeh, 01/03/2012 M.Dhaval Zestoretic 12/03/2011 Hx Tablets 20-25mg 90tabs 1 by mouth Pawel Hinojosa - every day Nevaeh, 08/12/2015 M.DDennis Zestoretic 06/21/2011 Hx Tablets 20-12.5mg 90tabs 1 po qd Pawel Herring, 12/03/2011 M.Dhaval Spiriva 08/25/2010 Hx Capsules 18mcg 90caps Not Using 1 Pawel Hinojosa Handihaler - inhalations Nevaeh, 05/30/2017 from one M.DDennis capsule daily Prednisone 08/25/2010 Hx Tablets 20mg 10tabs 1 po qd Pawel Herring, 11/18/2010 M.DDennis Zithromax 08/25/2010 Hx Tablets 250mg 1Pack as per Pawel Issa-Flip - directions Nevaeh, 11/18/2010 M.Dhaval Symbicort 07/20/2010 Hx Aerosol 160-4.5mcg 3units Not Using2 Zuly - /Act puff twice a Roberto, 05/30/2017 day M.Dhaval Combivent 05/25/2010 Hx 3MonthSu 2 puffs qid Pawel Hinojosa Inhaler - p Nevaeh, 08/25/2010 M.Dhaval Zithromax 10/22/2009 Hx Tablets 250mg 1Pack as per Pawel Issa-Flip - directions Nevaeh, 05/25/2010 M.Dhaval Albuterol 05/30/2009 Hx Nebulizer 0.63mg/3ML 100units 1 po tid Pawel Hinojosa Sulfate - Nevaeh, 10/22/2009 M.DDennis Furosemide 02/27/2009 Hx Tablets 20mg 7tabs 1 po qam Pawel Herring, 11/26/2014 M.Dhaval Atrovent 11/20/2008 Hx Aerosol 17mcg/Act 3units 2 puffs qid Pawel Hinojosa HFA - Nevaeh, 05/25/2010 M.Dhaval Benzonatate 10/21/2008 Hx Capsules 100mg 30caps 1-2 up to tid Pawel Hinojosa - prn cough Nevaeh, 11/20/2008 Vinicius Sotalol HCL 06/05/2008 Hx Tablets 80mg 180tabs 1 tab by Rocael Puentes - mouth twice a Brand, 07/28/2015 day Vinicius Symbicort 06/05/2008 Hx Aerosol 160-4.5 3units 2 puff bid Pawel Herring, 07/20/2010 Vinicius Proair HFA 03/29/2008 Hx Aerosol 108mcg/Act 3units 2 Puffs qid Pawel Herring, 12/15/2011 Vinicius Zithromax 12/13/2007 Hx Tablets 250mg 1Pack as per Pawel ForresterFlip - directions Nevaeh, 01/10/2008 Vinicius Zestoretic 11/22/2007 [...] Misc 250/50 3units 1 puff bid Pawel Herring, 06/05/2008 Vinicius Oxygen Hx Misc 1units 2 l nc at Unknown - bedtime 08/13/2015 Prednisone Hx Tablets 20mg Unknown - 03/20/2015 Doxycycline Hx Tablets 100mg Unknown Hyclate - 03/20/[address] 20mg 90caps Take 1 Pawel Hinojosa - capsule by Nevaeh, 08/18/2016 mouth twice M.D. a day Lisinopril- Hx Tablets 20-12.5mg 90tabs 1 by mouth Pawel Hinojosa Hydrochloro - every day( Nevaeh, thiazide 01/06/2018 Duplicated) Vinicius Sotalol HCL Hx Tablets 80mg 1 tab by Unknown - mouth twice a 10/22/2016 day Cephalexin Hx Capsules 500mg Unknown - 12/24/2016 Zestoretic Hx Tablets 20-12.5mg 1 by mouth Unknown - every day 01/06/2018 Medications Administered in Office Medication Date Status Form Strength Qnty SIG Indications Ordering Provider Depomedrol 40MG 08/14/ Administered Injection Rema 2018 Vinicius Gonzalez Depomedrol 40MG 08/14/ Administered Injection Rema 2018 Vinicius Gonzalez Depomedrol 40MG 05/05/ Administered Injection Rema 2017 Vinicius Gonzalez Depomedrol 40MG 05/05/ Administered Injection Rema 2017 Vinicius Gonzalez Depomedrol 40MG 01/27/ Administered Injection Rema 2017 Vinicius Gonzalez Depomedrol 40MG 01/27/ Administered Injection Rema 2017 Vinicius Gonzalez Depomedrol 40MG 10/28/ Administered Injection Rema 2017 Vinicius Gonzalez Depomedrol 40MG 10/28/ Administered Injection Rema 2017 Vinicius Gonzalez Depomedrol 40MG 07/29/ Administered Injection Rema 2017 Vinicius Gonzalez Depomedrol 40MG 07/29/ Administered Injection Rema 2017 Vinicius Goznalez Depomedrol 40MG 04/27/ Administered Injection Rema 2016 [...] CPT Code Status Date Vaccine Lot # [id number] Given 04/15/2017 Influenza Virus Vaccine, Quadrivalent, Split, Preservative Free 51816 Given 04/21/2016 Fluzone High Dose Q2039 Given 04/21/2015 Flu Vaccine NOS 94633 Given 04/30/2014 Pneumococcal Conjugate Vaccine 13 Valent For [id number] Intramuscular Use 03165 Given 07/18/2013 Zoster (Zostavax) 80291 Given 12/04/2012 Tdap - Tetanus/Diptheria/Acellular Pertussis [id number] Q2038 Given 04/24/2012 Fluzone Vaccine [id number] Q2038 Given 04/21/2011 Fluzone Vaccine [id number] 60057 Given 07/25/2009 Influenza Virus Vaccine, Pandemic Formulation [id number] 96880 Given 07/25/2009 Administration Swine Flu Shot 28713 Given 04/12/2008 Influenza Virus 3Yrs & Over 20983 Given 04/12/2008 Influenza Virus 3Yrs & Over 44128 Given 04/25/2007 Influenza Virus 3Yrs & Over 36580 Given 11/06/2002 Td (History By Patient) 53379 Given 10/22/2002 Pneumovax (History By Patient) Vital Signs Date Vital Result Comment 08/14/2018 10:16am Height 68.5 inches 5'8.50" Heart Rate 72 /min BP Systolic 130 mmHg BP Diastolic 78 mmHg Respiratory Rate 22 /min Pain Level 6 05/05/2018 9:58am Height 68.5 inches 5'8.50" Weight 150.00 lb BP Systolic 119 mmHg BP Diastolic 70 mmHg Respiratory Rate 15 /min Pain Level 2 BMI (Body Mass Index) 22.5 kg/m2 03/16/2018 10:42am Height 68.5 inches 5'8.50" Weight 151.00 lb Heart Rate 64 /min BP Systolic Sitting 112 mmHg BP Diastolic Sitting 58 mmHg O2 % BldC Oximetry 99 % BMI (Body Mass Index) 22.6 kg/m2 01/27/2018 9:27am Height 68.25 inches 5'8.25" Weight 148.00 lb Heart Rate 74 /min BP Systolic Sitting 126 mmHg BP Diastolic Sitting 74 mmHg Respiratory Rate 16 /min Pain Level 0 BMI (Body Mass Index) 22.3 kg/m2 01/06/2018 9:05am Height 68.25 inches 5'8.25" Weight 148.00 lb Heart Rate 72 /min BP Systolic Sitting 109 mmHg BP Diastolic Sitting 70 mmHg Body Temperature 97.1 F Pain Level 5 BMI (Body Mass Index) 22.3 kg/m2 12/21/2017 9:51am Height 68.25 inches 5'8.25" Weight 167.00 lb BP Systolic Sitting 100 mmHg BP Diastolic Sitting 58 mmHg Respiratory Rate 16 /min Pain Level 5 BMI (Body Mass Index) 25.2 kg/m2 11/09/2017 9:21am Weight 167.00 lb with shoes Heart Rate 60 /min BP Systolic Sitting 130 mmHg Lue reg cuff BP Diastolic Sitting 70 mmHg Lue reg cuff BP Systolic Standing 130 mmHg Lue reg cuff BP Diastolic Standing 78 mmHg Lue reg cuff Respiratory Rate 20 /min Ejection Fraction 55-60% date 07/22/15 ECHO 10/28/2017 9:34am Height 68.25 inches 5'8.25" Heart Rate 68 /min BP Systolic 118 mmHg BP Diastolic 62 mmHg Respiratory Rate 16 /min Body Temperature 98.0 F Pain Level 4 08/01/2017 9:17am Height 68.25 inches 5'8.25" Weight 172.00 lb Heart Rate 61 /min BP Systolic Sitting 154 mmHg BP Diastolic Sitting 86 mmHg Body Temperature 97.2 F O2 % BldC Oximetry 98 % BMI (Body Mass Index) 26.0 kg/m2 07/29/2017 9:12am Height 70 inches 5'10" Weight 160.00 lb Heart Rate 56 /min BP Systolic 150 mmHg BP Diastolic 94 mmHg BMI (Body Mass Index) 23.0 kg/m2 05/30/2017 2:45pm Weight 164.50 lb Heart Rate 54 /min BP Systolic Sitting 160 mmHg BP Diastolic Sitting 98 mmHg Body Temperature 98.5 F O2 % BldC Oximetry 97 % 04/28/2017 10:02am Weight 163.00 lb Heart Rate 60 /min BP Systolic Sitting 145 mmHg BP Diastolic Sitting 78 mmHg Body Temperature 96.8 F Pain Level 0 O2 % BldC Oximetry 97 % 04/27/2017 10:00am Height 70 inches 5'10" Weight 167.00 lb Heart Rate 60 /min BP Systolic 130 mmHg BP Diastolic 68 mmHg Body Temperature 97.9 F Pain Level 0 BMI (Body Mass Index) 24.0 kg/m2 01/24/2017 11:31am Height 70 inches 5'10" Weight 167.00 lb Heart Rate 77 /min BP Systolic 139 mmHg BP Diastolic 85 mmHg Respiratory Rate 16 /min Body Temperature 98.7 F BMI (Body Mass Index) 24.0 kg/m2 12/24/2016 9:52am Height 70 inches 5'10" Weight 167.00 lb Heart Rate 67 /min BP Systolic 144 mmHg BP Diastolic 84 mmHg Body Temperature 97.5 F O2 % BldC Oximetry 95 % BMI (Body Mass Index) 24.0 kg/m2 12/08/2016 10:47am Height 70 inches 5'10" Weight 165.56 lb Heart Rate 85 /min BP Systolic 120 mmHg BP Diastolic 80 mmHg Body Temperature 97.7 F O2 % BldC Oximetry 96 % BMI (Body Mass Index) 23.8 kg/m2 10/27/2016 9:40am Height 70 inches 5'10" Weight 167.00 lb Heart Rate 95 /min BP Systolic 141 mmHg BP Diastolic 84 mmHg Body Temperature 96.8 F Pain Level 5 BMI (Body Mass Index) 24.0 kg/m2 10/22/2016 9:40am Height 70 inches 5'10" Weight 170.00 lb with shoes Heart Rate 76 /min BP Systolic Sitting 130 mmHg Lue reg cuff BP Diastolic Sitting 90 mmHg Lue reg cuff BP Systolic Standing 134 mmHg Lue reg cuff BP Diastolic Standing 90 mmHg Lue reg cuff Respiratory Rate 17 /min BMI (Body Mass Index) 24.4 kg/m2 Ejection Fraction 55-60% date 07/22/15 ECHO 09/23/2016 10:57am Weight 172.38 lb Heart Rate 65 /min BP Systolic Sitting 164 mmHg BP Diastolic Sitting 82 mmHg Body Temperature 97.0 F O2 % BldC Oximetry 97 % 07/28/2016 9:50am Heart Rate 71 /min BP Systolic 133 mmHg BP Diastolic 72 mmHg Pain Level 7 05/24/2016 9:58am Weight 183.12 lb Heart Rate 75 /min BP Systolic 120 mmHg BP Diastolic 68 mmHg Body Temperature 97.8 F O2 % BldC Oximetry 95 % 03/29/2016 10:26am Heart Rate 76 /min BP Systolic 147 mmHg BP Diastolic 91 mmHg Pain Level 7 02/18/2016 8:59am Weight 184.00 lb with shoes Heart Rate 90 /min BP Systolic Sitting 120 mmHg BP Diastolic Sitting 72 mmHg Body Temperature 95.0 F O2 % BldC Oximetry 95 % 02/03/2016 10:07am Height 67.50 inches 5'7.50" Weight 167.50 lb Heart Rate 73 /min BP Systolic 140 mmHg BP Diastolic 62 mmHg Body Temperature 97.2 F O2 % BldC Oximetry 93 % BMI (Body Mass Index) 25.8 kg/m2 12/26/2015 9:35am Height 70 inches 5'10" Weight 170.00 lb Pain Level 7 BMI (Body Mass Index) 24.4 kg/m2 10/23/2015 10:19am Weight 170.00 lb Heart Rate 100 /min BP Systolic Sitting 122 mmHg LA reg cuff BP Diastolic Sitting 84 mmHg LA reg cuff BP Systolic Standing 124 mmHg LA BP Diastolic Standing 82 mmHg LA Respiratory Rate 24 /min O2 % BldC Oximetry 91 % Ejection Fraction 55-60% 07/22/15 10/22/2015 9:58am Weight 173.00 lb Heart Rate 91 /min BP Systolic Sitting 128 mmHg BP Diastolic Sitting 88 mmHg Respiratory Rate 18 /min Body Temperature 98.2 F O2 % BldC Oximetry 95 % 09/30/2015 11:03am Heart Rate 93 /min BP Systolic Sitting 124 mmHg BP Diastolic Sitting 82 mmHg Body Temperature 98.1 F O2 % BldC Oximetry 93 % 09/24/2015 9:46am Height 70 inches 5'10" Weight 183.00 lb Pain Level 9 BMI (Body Mass Index) 26.3 kg/m2 09/19/2015 9:36am Heart Rate 79 /min BP Systolic Sitting 117 mmHg BP Diastolic Sitting 69 mmHg Body Temperature 97.3 F 09/04/2015 11:43am Height 70 inches 5'10" Weight 183.00 lb with shoes Heart Rate 108 /min BP Systolic Sitting 98 mmHg LA reg cuff BP Diastolic Sitting 72 mmHg LA reg cuff Respiratory Rate 26 /min BMI (Body Mass Index) 26.3 kg/m2 Ejection Fraction 55-60% 07/22/15 08/21/2015 3:20pm Heart Rate 52 /min BP Systolic Sitting 111 mmHg BP Diastolic Sitting 77 mmHg Body Temperature 97.0 F 08/12/2015 10:03am Height 70 inches 5'10" Heart Rate 148 /min BP Systolic 86 mmHg BP Diastolic 60 mmHg Body Temperature 97.8 F O2 % BldC Oximetry 96 % 07/15/2015 9:37am Height 70 inches 5'10" Weight 188.00 lb Heart Rate 70 /min BP Systolic 97 mmHg BP Diastolic 66 mmHg Body Temperature 97.1 F O2 % BldC Oximetry 98 % BMI (Body Mass Index) 27.0 kg/m2 06/30/2015 10:35am Height 70 inches 5'10" Weight 183.00 lb Heart Rate 70 /min BP Systolic 90 mmHg BP Diastolic 60 mmHg Body Temperature 97.2 F O2 % BldC Oximetry 98 % BMI (Body Mass Index) 26.3 kg/m2 06/16/2015 9:36am Height 70 inches 5'10" Weight 180.00 lb Pain Level 0 at this time BMI (Body Mass Index) 25.8 kg/m2 04/28/2015 11:26am Height 70 inches 5'10" Weight 180.00 lb Pain Level 8 BMI (Body Mass Index) 25.8 kg/m2 03/31/2015 9:16am Height 70 inches 5'10" Weight 180.00 lb Pain Level 0 BMI (Body Mass Index) 25.8 kg/m2 02/05/2015 10:20am Height 70 inches 5'10" Weight 180.25 lb Heart Rate 63 /min BP Systolic Sitting 118 mmHg BP Diastolic Sitting 66 mmHg Respiratory Rate 24 /min Body Temperature 95.0 F O2 % BldC Oximetry 96 % BMI (Body Mass Index) 25.9 kg/m2 01/31/2015 10:20am Height 70 inches 5'10" Weight 180.00 lb Heart Rate 56 /min BP Systolic Sitting 116 mmHg BP Diastolic Sitting 62 mmHg Body Temperature 97.4 F O2 % BldC Oximetry 96 % BMI (Body Mass Index) 25.8 kg/m2 11/26/2014 9:28am Height 70 inches 5'10" Weight 185.50 lb Heart Rate 56 /min BP Systolic Sitting 130 mmHg BP Diastolic Sitting 72 mmHg Respiratory Rate 18 /min Body Temperature 96.4 F O2 % BldC Oximetry 94 % Room air. BMI (Body Mass Index) 26.6 kg/m2 11/13/2014 8:04am Height 70 inches 5'10" Weight 186.00 lb Heart Rate 80 /min BP Systolic Sitting 130 mmHg BP Diastolic Sitting 64 mmHg Respiratory Rate 18 /min O2 % BldC Oximetry 92 % BMI (Body Mass Index) 26.7 kg/m2 07/09/2014 10:23am Weight 183.50 lb Heart Rate 54 /min BP Systolic Sitting 104 mmHg BP Diastolic Sitting 60 mmHg Body Temperature 97.7 F 06/24/2014 10:48am Height 68 inches 5'8" Weight 181.00 lb Heart Rate 56 /min BP Systolic Sitting 102 mmHg left arm, reg cuff BP Diastolic Sitting 64 mmHg left arm, reg cuff Respiratory Rate 20 /min Body Temperature 97.6 F O2 % BldC Oximetry 95 % Room air BMI (Body Mass Index) 27.5 kg/m2 Neck Circumference in inches 15.75 02/28/2014 9:21am Height 68 inches 5'8" Weight 179.00 lb without shoes Heart Rate 58 /min BP Systolic 124 mmHg Ra reg cuff Stand BP Diastolic 70 mmHg Ra reg cuff Stand BP Systolic Sitting 112 mmHg Ra reg cuff Sit BP Diastolic Sitting 70 mmHg Ra reg cuff Sit Respiratory Rate 14 /min BMI (Body Mass Index) 27.2 kg/m2 02/25/2014 9:09am Heart Rate 50 /min O2 % BldC Oximetry 94 % 01/01/2014 9:03am Height 68.75 inches 5'8.75" Weight 186.00 lb Heart Rate 60 /min BP Systolic Sitting 122 mmHg BP Diastolic Sitting 72 mmHg BMI (Body Mass Index) 27.7 kg/m2 12/13/2013 11:26am Height 68.75 inches 5'8.75" Weight 184.50 lb Heart Rate 56 /min BP Systolic Sitting 110 mmHg BP Diastolic Sitting 68 mmHg Body Temperature 97.1 F BMI (Body Mass Index) 27.4 kg/m2 08/31/2013 10:09am Weight 190.00 lb refused to remove shoes Heart Rate 62 /min BP Systolic Sitting 132 mmHg BP Diastolic Sitting 78 mmHg Body Temperature 97.1 F O2 % BldC Oximetry 92 % 12/04/2012 10:47am Height 68.75 inches 5'8.75" Weight 183.00 lb Heart Rate 60 /min BP Systolic Sitting 116 mmHg irregular BP Diastolic Sitting 64 mmHg irregular O2 % BldC Oximetry 94 % BMI (Body Mass Index) 27.2 kg/m2 06/05/2012 10:50am Height 68.75 inches 5'8.75" Weight 188.00 lb Heart Rate 52 /min BP Systolic Sitting 150 mmHg BP Diastolic Sitting 86 mmHg BMI (Body Mass Index) 28.0 kg/m2 05/17/2012 9:27am BP Systolic Sitting 112 mmHg 126/60 manual BP Diastolic Sitting 78 mmHg 126/60 manual 04/05/2012 1:49pm Height 68.75 inches 5'8.75" Weight 182.00 lb Heart Rate 72 /min irregular BP Systolic Sitting 108 mmHg BP Diastolic Sitting 64 mmHg Body Temperature 95.8 F O2 % BldC Oximetry 85 % BMI (Body Mass Index) 27.1 kg/m2 03/17/2012 1:00pm Height 68.75 inches 5'8.75" Weight 185.00 lb Heart Rate 65 /min BP Systolic Sitting 108 mmHg BP Diastolic Sitting 68 mmHg Body Temperature 97.0 F O2 % BldC Oximetry 97 % BMI (Body Mass Index) 27.5 kg/m2 03/10/2012 9:58am Height 68.75 inches 5'8.75" Weight 187.00 lb Heart Rate 76 /min BP Systolic Sitting 120 mmHg BP Diastolic Sitting 78 mmHg Respiratory Rate 24 /min Body Temperature 99.0 F O2 % BldC Oximetry 97 % BMI (Body Mass Index) 27.8 kg/m2 01/03/2012 11:22am Height 68.75 inches 5'8.75" Weight 190.00 lb Heart Rate 64 /min BP Systolic Sitting 122 mmHg BP Diastolic Sitting 72 mmHg BMI (Body Mass Index) 28.3 kg/m2 12/24/2011 10:11am Height 69 inches 5'9" Weight 190.00 lb Heart Rate 62 /min BP Systolic Sitting 118 mmHg BP Diastolic Sitting 76 mmHg BMI (Body Mass Index) 28.1 kg/m2 12/15/2011 9:50am Height 69 inches 5'9" Weight 195.00 lb Heart Rate 70 /min BP Systolic Sitting 110 mmHg BP Diastolic Sitting 84 mmHg BP Systolic Lying Down 119 mmHg on pts wrist machine pulse was 52 BP Diastolic Lying Down 92 mmHg on pts wrist machine pulse was 52 O2 % BldC Oximetry 92 % BMI (Body Mass Index) 28.8 kg/m2 12/03/2011 8:58am Height 69 inches 5'9" Weight 193.00 lb Heart Rate 64 /min BP Systolic Sitting 143 mmHg BP Diastolic Sitting 96 mmHg O2 % BldC Oximetry 94 % BMI (Body Mass Index) 28.5 kg/m2 05/26/2011 9:11am Weight 192.00 lb Heart Rate 78 /min BP Systolic Sitting 130 mmHg BP Diastolic Sitting 84 mmHg 11/23/2010 9:13am Weight 198.00 lb Heart Rate 70 /min Irregular BP Systolic Sitting 140 mmHg BP Diastolic Sitting 80 mmHg 08/25/2010 9:32am Weight 197.00 lb Heart Rate 84 /min BP Systolic Sitting 134 mmHg BP Diastolic Sitting 74 mmHg O2 % BldC Oximetry 91 % 1st reading 87 05/25/2010 8:54am Weight 198.00 lb Heart Rate 75 /min BP Systolic Sitting 148 mmHg BP Diastolic Sitting 78 mmHg O2 % BldC Oximetry 88 % 11/19/2009 10:17am Weight 193.00 lb Heart Rate 50 /min BP Systolic Sitting 130 mmHg BP Diastolic Sitting 84 mmHg 10/22/2009 9:39am Weight 194.00 lb down 7# Heart Rate 68 /min BP Systolic Sitting 116 mmHg BP Diastolic Sitting 64 mmHg Body Temperature 99.1 F O2 % BldC Oximetry 92 % 05/21/2009 11:26am Weight 201.00 lb Heart Rate 60 /min BP Systolic Sitting 154 mmHg BP Diastolic Sitting 86 mmHg 03/05/2009 11:02am Height 70 inches 5'10" Weight 197.00 lb down 3# Heart Rate 60 /min BP Systolic Sitting 144 mmHg BP Diastolic Sitting 82 mmHg BMI (Body Mass Index) 28.3 kg/m2 02/20/2009 11:32am Height 70 inches 5'10" Weight 200.00 lb up 5# Heart Rate 60 /min BP Systolic Sitting 144 mmHg BP Diastolic Sitting 84 mmHg BMI (Body Mass Index) 28.7 kg/m2 11/20/2008 10:44am Height 70 inches 5'10" Weight 195.00 lb Heart Rate 60 /min BP Systolic Sitting 160 mmHg BP Diastolic Sitting 90 mmHg BMI (Body Mass Index) 28.0 kg/m2 10/21/2008 11:07am Weight 193.00 lb Heart Rate 72 /min BP Systolic Sitting 120 mmHg BP Diastolic Sitting 76 mmHg O2 % BldC Oximetry 92 % 06/05/2008 10:03am Height 70 inches 5'10" Weight 201.00 lb Heart Rate 64 /min BP Systolic Sitting 126 mmHg BP Diastolic Sitting 78 mmHg BMI (Body Mass Index) 28.8 kg/m2 01/10/2008 11:50am Height 70 inches 5'10" Weight 202.00 lb Heart Rate 64 /min BP Systolic Sitting 110 mmHg BP Diastolic Sitting 76 mmHg O2 % BldC Oximetry 95 % P 68 Post Exercise: 91 P 113 BMI (Body Mass Index) 29.0 kg/m2 12/13/2007 1:52pm Height 70 inches 5'10" Weight 201.00 lb down 6# Heart Rate 80 /min BP Systolic Sitting 114 mmHg BP Diastolic Sitting 74 mmHg Body Temperature 98.4 F O2 % BldC Oximetry 94 % BMI (Body Mass Index) 28.8 kg/m2 11/22/2007 9:47am Height 70 inches 5'10" Weight 207.00 lb Heart Rate 72 /min BP Systolic Sitting 144 mmHg BP Diastolic Sitting 86 mmHg BMI (Body Mass Index) 29.7 kg/m2 09/12/2007 9:40am Height 70 inches 5'10" Weight 206.00 lb Heart Rate 76 /min BP Systolic Sitting 140 mmHg BP Diastolic Sitting 80 mmHg BMI (Body Mass Index) 29.6 kg/m2 08/01/2007 1:45pm Height 70 inches 5'10" Weight 204.00 lb Heart Rate 72 /min pulse irregular BP Systolic Sitting 140 mmHg BP Diastolic Sitting 90 mmHg BMI (Body Mass Index) 29.3 kg/m2 07/19/2007 9:37am Height 70 inches 5'10" Weight 208.00 lb Heart Rate 64 /min BP Systolic Sitting 142 mmHg BP Diastolic Sitting 84 mmHg O2 % BldC Oximetry 96 % 94 after exercise BMI (Body Mass Index) 29.8 kg/m2 05/24/2007 9:52am Height 70 inches 5'10" Weight 204.00 lb Heart Rate 80 /min BP Systolic Sitting 120 mmHg BP Diastolic Sitting 80 mmHg BMI (Body Mass Index) 29.3 kg/m2 03/01/2007 2:49pm Height 70 inches 5'10" Weight 200.00 lb Heart Rate 65 /min BP Systolic Sitting 126 mmHg BP Diastolic Sitting 84 mmHg BMI (Body Mass Index) 28.7 kg/m2 02/16/2007 1:35pm Height 70 inches 5'10" Weight 198.00 lb Heart Rate 74 /min BP Systolic Sitting 132 mmHg BP Diastolic Sitting 82 mmHg BMI (Body Mass Index) 28.4 kg/m2 Results Test Date Facility Test Result H/L Range Note Laboratory test 03/16/2018 [facility] Hemoglobin A1c 6.3 5-7 finding CBC Auto Diff 11/19/2017 [facility] White Blood 12.4 High 3.5- 10.[address] Count 10^3/[place] [address] [phone] Red Blood Count 4.45 10^6/uL N 4.0-5.4 Hemoglobin 14.3 g/dL N 14.0-18.0 Hematocrit 42 % N 42-52 Mean Corpuscular Volume 95 fL High 80-94 Mean Corpuscular Hemoglobin 32 pg High 27-31 Mean Corpuscular HGB Conc 34 g/dL N 31-36 Red Cell Distribution Width 14 % N 10.5-15 Platelet Count 139 10^3/uL Low 150-450 Mean Platelet Volume 8.7 um3 N 7.4-10.4 Abs Neutrophils 8.4 10^3/uL High 1.5-7.7 Abs Lymphocytes 2.9 10^3/uL N 1.0-4.8 Abs Monocytes 1.1 10^3/uL High 0-0.8 Abs Eosinophils 0.1 10^3/uL N 0-0.6 Abs Basophils 0 10^3/uL N 0-0.2 Abs Nucleated RBC 0 10^3/uL Granulocyte % 67.5 % N 38-83 Lymphocyte % 23.3 % Low 25-47 Monocyte % 8.5 % High 0-7 Eosinophil % 0.5 % N 0-6 Basophil % 0.2 % N 0-2 Nucleated Red Blood Cells % 0 Urinalysis Profile 11/19/2017 [facility] Urine Color Yellow [address] [place] [address] [phone] Urine Appearance Clear Urine Specific [place] 1.006 Low 1.010-1.030 Urine pH 5.0 N 5-9 Urine Urobilinogen Negative Negative Urine Ketones Negative Negative Urine Protein Negative Negative Urine Leukocytes Negative Negative Urine Blood Negative Negative Urine Nitrite Negative Negative Urine Bilirubin Negative Negative Urine Glucose Negative Negative Inr/Protime 11/19/2017 [facility] Inr 1.02 N 0.77-1.02 [address] [place] [address] [phone] Laboratory test 11/19/2017 [facility] Partial 30.4 N 26.0- 36.3 finding 101 [facility] [place] [address] PTT [phone] Comp Metabolic 11/19/2017 [facility] Sodium 137 mmol/L Low 139 -145 Panel [address] [place] [address] [phone] Potassium 3.6 mmol/L N 3.5-5.0 Chloride 100 mmol/L Low 101-111 Co2 Carbon Dioxide 28 mmol/L N 22-32 Anion Gap 9 mmol/L N 2-11 Calcium 9.4 mg/dL N 8.6-10.3 Albumin 4.3 g/dL N 3.2-5.2 Total Bilirubin 1.20 mg/dL High 0.2-1.0 Glucose 102 mg/dL High 70-100 Blood Urea Nitrogen 12 mg/dL N 6-24 Creatinine 0.59 mg/dL Low 0.67-1.17 BUN/Creatinine Ratio 20.3 High 8-20 Total Protein 6.4 g/dL N 6.4-8.9 Globulin 2.1 g/dL N 2-4 Albumin/Globulin Ratio 2.0 N 1-3 Alkaline Phosphatase 74 U/L N 34-104 Alt 17 U/L N 7-52 Ast 18 U/L N 13-39 Egfr Non- 129.6 >60 Egfr 166.7 >60 1 Laboratory test 11/11/2017 [facility] Digoxin 0.9 ng/ml N 0.8- 2.0 finding [address] [place] [address] [phone] Laboratory test 11/09/2017 [facility] Digoxin <pending> finding [address] [place] [address] [phone] Urine 08/01/2017 [facility] Ur Microalbumin 30.3 mg/L [address] (mg/L) [place] [address] [phone] Urine Creatinine 88.50 mg/dL Urine Microalbumin/Creatinine 34.2 ug/mg High <31 Laboratory test 07/27/2017 [facility] Hemoglobin A1c 6.4 % High 4.0-5.6 [address] (Glyco HGB) [place] [address] [phone] Lipid Profile 07/27/2017 [facility] Triglycerides 89 4 (Trig/Chol/HDL) [address] DR[address] mg/[place] [address] [phone] Cholesterol 156 mg/dL 5 HDL Cholesterol 45.3 mg/dL 6 LDL Cholesterol 93 mg/dL 7 Comp Metabolic Panel 07/27/2017 [facility] Sodium 140 mmol/L N 133-[address] [place] [address] [phone] Potassium 3.8 mmol/L N 3.5-5.0 Chloride 104 mmol/L N 101-111 Co2 Carbon Dioxide 31 mmol/L N 22-32 Anion Gap 5 mmol/L N 2-11 Glucose 162 mg/dL High 70-100 Blood Urea Nitrogen 11 mg/dL N 6-24 Creatinine 0.65 mg/dL Low 0.67-1.17 BUN/Creatinine Ratio 16.9 N 8-20 Calcium 9.5 mg/dL N 8.6-10.3 Total Protein 6.0 g/dL Low 6.4-8.9 Albumin 3.9 g/dL N 3.2-5.2 Globulin 2.1 g/dL N 2-4 Albumin/Globulin Ratio 1.9 N 1-3 Total Bilirubin 1.30 mg/dL High 0.2-1.0 Alkaline Phosphatase 65 U/L N 34-104 Alt 13 U/L N 7-52 Ast 20 U/L N 13-39 Egfr Non- 116.2 >60 Egfr 149.4 >60 8 Laboratory test 07/27/2017 [facility] TSH (Thyroid 0.81 N 0.34 -5.60 [address] Stim Horm) mcIU/[place] [address] [phone] Vitamin B12 And 07/27/2017 [facility] Vitamin B12 162 pg/mL Low 180-914 10 Folate Serum [address] [place] [address] [phone] Folic Acid (Folate) 16.91 ng/mL >3.99 11 Wound 12/27/2016 [facility] Wound/Misc SEE RESULT 12, 13 Culture/Sensi [address] [place] [address] Stain [phone] Laboratory test 12/24/2016 [facility] Hemoglobin A1c 6.8 5-7 finding Basic Metabolic 12/21/2016 [facility] Sodium 139 mmol/L N 133 - Panel [address] [place] [address] [phone] Potassium 3.7 mmol/L N 3.5-5.0 Chloride 101 mmol/L N 101-111 Co2 Carbon Dioxide 31 mmol/L N 22-32 Anion Gap 7 mmol/L N 2-11 Glucose 166 mg/dL High 70-100 Blood Urea Nitrogen 9 mg/dL N 6-24 Creatinine 0.66 mg/dL Low 0.67-1.17 BUN/Creatinine Ratio 13.6 N 8-20 Calcium 9.2 mg/dL N 8.6-10.3 Egfr Non- 114.2 N >60 Egfr 146.8 N >60 14 Basic Metabolic Panel 09/14/2016 [facility] Sodium 141 mmol/L N 133-[address] [place] [address] [phone] Potassium 3.8 mmol/L N 3.5-5.0 Chloride 103 mmol/L N 101-111 Co2 Carbon Dioxide 32 mmol/L N 22-32 Anion Gap 6 mmol/L N 2-11 Glucose 252 mg/dL High 70-100 Blood Urea Nitrogen 15 mg/dL N 6-24 Creatinine 0.68 mg/dL N 0.67-1.17 BUN/Creatinine Ratio 22.1 High 8-20 Calcium 9.2 mg/dL N 8.6-10.3 Egfr Non- 110.6 N >60 Egfr 142.2 N >60 15 Laboratory test 09/14/2016 [facility] Hemoglobin A1c 9.0 % High Less [address] (Glyco HGB) than 6.0 [place] [address] [phone] Urine 09/14/2016 [facility] Urine 145.57 N Microalbumin [address] Creatinine mg/[place] [address] [phone] Ur Microalbumin (mg/L) 92.7 mg/L N Urine Microalbumin/Creatinine 63.6 ug/mg High <31 Laboratory test 08/16/2016 [facility] Digoxin 0.6 ng/ml Low 0.8-2.0 [address] [place] [address] [phone] Basic Metabolic 08/16/2016 [facility] Sodium 135 mmol/L N 133- [address] [place] [address] [phone] Potassium 4.4 mmol/L N 3.5-5.0 Chloride 98 mmol/L Low 101-111 Co2 Carbon Dioxide 32 mmol/L N 22-32 Anion Gap 5 mmol/L N 2-11 Glucose 377 mg/dL High 70-100 Blood Urea Nitrogen 22 mg/dL N 6-24 Creatinine 0.78 mg/dL N 0.67-1.17 BUN/Creatinine Ratio 28.2 High 8-20 Calcium 9.7 mg/dL N 8.6-10.3 Egfr Non- 94.4 N >60 Egfr 121.4 N >60 18 Laboratory test 05/17/2016 [facility] Hemoglobin A1c 7.8 % High Less than [address] (Glyco HGB) 6.0 [place] [address] [phone] Basic Metabolic 05/17/2016 [facility] Sodium 139 N 133-[address] mmol/[place] [address] [phone] Potassium 3.6 mmol/L N 3.5-5.0 Chloride 100 mmol/L Low 101-111 Co2 Carbon Dioxide 31 mmol/L N 22-32 Anion Gap 8 mmol/L N 2-11 Glucose 196 mg/dL High 70-100 Blood Urea Nitrogen 18 mg/dL N 6-24 Creatinine 0.85 mg/dL N 0.67-1.17 BUN/Creatinine Ratio 21.2 High 8-20 Calcium 9.4 mg/dL N 8.6-10.3 Egfr Non- 85.5 N >60 Egfr 109.9 N >60 20 Laboratory test 02/03/2016 [facility] Hemoglobin A1c 8.3 % High Less than [address] (Glyco HGB) 6.0 [place] [address] [phone] Basic Metabolic 02/03/2016 [facility] Sodium 139 N 133-[address] mmol/[place] [address] [phone] Potassium 3.5 mmol/L N 3.5-5.0 Chloride 100 mmol/L Low 101-111 Co2 Carbon Dioxide 31 mmol/L N 22-32 Anion Gap 8 mmol/L N 2-11 Glucose 198 mg/dL High 70-100 Blood Urea Nitrogen 12 mg/dL N 6-24 Creatinine 0.74 mg/dL N 0.67-1.17 BUN/Creatinine Ratio 16.2 N 8-20 Calcium 9.6 mg/dL N 8.6-10.3 Egfr Non- 100.3 N >60 Egfr 129.0 N >60 22 Lipid Profile 01/30/2016 [facility] Triglycerides 85 mg/dL N 23 (Trig/Chol/HDL) [address] [place] [address] [phone] Cholesterol 137 mg/dL N 24 HDL Cholesterol 47.5 mg/dL N 25 LDL Cholesterol 73 mg/dL N 26 Laboratory test 10/16/2015 [facility] B-Type 212 pg/mL High [address] [place] [address] Peptide BNP [phone] Basic Metabolic 10/16/2015 [facility] Sodium 137 mmol/L N 133- [address] [place] [address] [phone] Potassium 3.4 mmol/L Low 3.5-5.0 Chloride 99 mmol/L Low 101-111 Co2 Carbon Dioxide 28 mmol/L N 22-32 Anion Gap 10 mmol/L N 2-11 Glucose 216 mg/dL High 70-100 Blood Urea Nitrogen 11 mg/dL N 6-24 Creatinine 0.57 mg/dL Low 0.67-1.17 BUN/Creatinine Ratio 19.3 N 8-20 Calcium 9.1 mg/dL N 8.6-10.3 Egfr Non- 135.9 N >60 Egfr 174.7 N >60 28 Laboratory test 09/27/2015 [facility] C Reactive 5.65 mg/L High < 5.00 [address] [place] [address] [phone] B-Type Natriuretic Peptide BNP 305 pg/mL High 30 Comp Metabolic Panel 09/27/2015 [facility] Sodium 140 mmol/L N 133-[address] [place] [address] [phone] Potassium 4.5 mmol/L N 3.5-5.0 Chloride 102 mmol/L N 101-111 Co2 Carbon Dioxide 32 mmol/L N 22-32 Anion Gap 6 mmol/L N 2-11 Glucose 156 mg/dL High 70-100 Blood Urea Nitrogen 11 mg/dL N 6-24 Creatinine 0.54 mg/dL Low 0.67-1.17 BUN/Creatinine Ratio 20.4 High 8-20 Calcium 9.3 mg/dL N 8.6-10.3 Total Protein 5.9 g/dL Low 6.4-8.9 Albumin 3.5 g/dL N 3.2-5.2 Globulin 2.4 g/dL N 2-4 Albumin/Globulin Ratio 1.5 N 1-3 Total Bilirubin 1.00 mg/dL N 0.2-1.0 Alkaline Phosphatase 66 U/L N 34-104 Alt 8 U/L N 7-52 Ast 15 U/L N 13-39 Egfr Non- 144.6 N >60 Egfr 186.0 N >60 31 CBC Auto 09/27/2015 [facility] White Blood 14.2 10^3/uL High 3.5-10.[address] [place] [address] [phone] Red Blood Count 4.03 10^6/uL N 4.0-5.4 Hemoglobin 13.5 g/dL Low 14.0-18.0 Hematocrit 41 % Low 42-52 Mean Corpuscular Volume 102 fL High 80-94 Mean Corpuscular Hemoglobin 33 pg High 27-31 Mean Corpuscular HGB Conc 33 g/dL N 31-36 Red Cell Distribution Width 15 % N 10.5-15 Platelet Count 259 10^3/uL N 150-450 Mean Platelet Volume 9 um3 N 7.4-10.4 Abs Neutrophils 11.0 10^3/uL High 1.5-7.7 Abs Lymphocytes 2.3 10^3/uL N 1.0-4.8 Abs Monocytes 0.7 10^3/uL N 0-0.8 Abs Eosinophils 0.1 10^3/uL N 0-0.6 Abs Basophils 0.1 10^3/uL N 0-0.2 Abs Nucleated RBC 0.01 10^3/uL N Granulocyte % 77.4 % N 38-83 Lymphocyte % 16.1 % Low 25-47 Monocyte % 5.1 % N 1-9 Eosinophil % 0.4 % N 0-6 Basophil % 1.0 % N 0-2 Nucleated Red Blood Cells % 0 N Basic Metabolic Panel 09/19/2015 [facility] Sodium 140 mmol/L N 133-[address] [place] [address] [phone] Potassium 4.0 mmol/L N 3.5-5.0 Chloride 103 mmol/L N 101-111 Co2 Carbon Dioxide 30 mmol/L N 22-32 Anion Gap 7 mmol/L N 2-11 Glucose 131 mg/dL High 70-100 Blood Urea Nitrogen 12 mg/dL N 6-24 Creatinine 0.59 mg/dL Low 0.67-1.17 BUN/Creatinine Ratio 20.3 High 8-20 Calcium 8.8 mg/dL N 8.6-10.3 Egfr Non- 130.6 N >60 Egfr 167.9 N >60 32 Laboratory test 08/12/2015 [facility] Hemoglobin A1c 6.8 5-7 finding Arterial Blood Gas 07/21/2015 [facility] O2 Device nasal cannula N [address] [place] [address] [phone] Fio2 28 N PH Arterial 7.46 High 7.35-7.45 Pco2 Arterial 32 mmHg Low 35-45 Po2 Arterial 122 mmHg High 80-100 O2 Saturation Arterial 99.2 % High 95-98 Base Excess Arterial -0.2 N -2.0-2.0 33 Hco3 Arterial 24.7 mmol/L N 19-31 CBC Auto Diff 07/21/2015 [facility] White Blood 9.5 10^3/uL N 3.5-10.[address] [place] [address] [phone] Red Blood Count 4.74 10^6/uL N 4.0-5.4 Hemoglobin 15.9 g/dL N 14.0-18.0 Hematocrit 47 % N 42-52 Mean Corpuscular Volume 100 fL High 80-94 Mean Corpuscular Hemoglobin 34 pg High 27-31 Mean Corpuscular HGB Conc 34 g/dL N 31-36 Red Cell Distribution Width 13 % N 10.5-15 Platelet Count 139 10^3/uL Low 150-450 Mean Platelet Volume 8 um3 N 7.4-10.4 Abs Neutrophils 7.8 10^3/uL High 1.5-7.7 Abs Lymphocytes 0.9 10^3/uL Low 1.0-4.8 Abs Monocytes 0.7 10^3/uL N 0-0.8 Abs Eosinophils 0.1 10^3/uL N 0-0.6 Abs Basophils 0 10^3/uL N 0-0.2 Abs Nucleated RBC 0 10^3/uL N Granulocyte % 82.0 % N 38-83 Lymphocyte % 9.3 % Low 25-47 Monocyte % 7.0 % N 1-9 Eosinophil % 1.4 % N 0-6 Basophil % 0.3 % N 0-2 Nucleated Red Blood Cells % 0 N Laboratory test 07/21/2015 [facility] Lactic Acid 1.1 mmol/L N 0.5-2.0 34 finding [address] [place] [address] [phone] Inr/Protime 07/21/2015 [facility] Inr 1.15 High 0.89-1.[address] [place] [address] [phone] Laboratory test 07/21/2015 [facility] Partial 28.7 N 26.0- 36.[address] [facility] [place] [place] [address] Time PTT [phone] Comp Metabolic 07/21/2015 [facility] Sodium 127 mmol/L Low 133 -145 Panel [address] [place] [address] [phone] Potassium 4.2 mmol/L N 3.5-5.0 Chloride 92 mmol/L Low 101-111 Co2 Carbon Dioxide 27 mmol/L N 22-32 Anion Gap 8 mmol/L N 2-11 Glucose 138 mg/dL High 70-100 Blood Urea Nitrogen 17 mg/dL N 6-24 Creatinine 0.76 mg/dL N 0.67-1.17 BUN/Creatinine Ratio 22.4 High 8-20 Calcium 9.1 mg/dL N 8.6-10.3 Total Protein 6.3 g/dL Low 6.4-8.9 Albumin 3.6 g/dL N 3.2-5.2 Globulin 2.7 g/dL N 2-4 Albumin/Globulin Ratio 1.3 N 1-3 Total Bilirubin 1.50 mg/dL High 0.2-1.0 Alkaline Phosphatase 63 U/L N 34-104 Alt 19 U/L N 7-52 Ast 22 U/L N 13-39 Egfr Non- 97.5 N >60 Egfr 125.4 N >60 35 Laboratory test 07/21/2015 [facility] Troponin-I (TnI) 0.00 ng/ mL N <0.03 [address] [place] [address] [phone] B-Type Natriuretic Peptide BNP 135 pg/mL High 37 Urinalysis Profile 07/21/2015 [facility] Urine Color Shira N [address] [place] [address] [phone] Urine Appearance Clear N Urine Specific [place] 1.020 N 1.010-1.030 Urine pH 6.0 N 5-9 Urine Urobilinogen Positive Abnormal Negative Urine Ketones 1+ Abnormal Negative Urine Protein Negative N Negative Urine Leukocytes Negative N Negative Urine Blood Negative N Negative * * Abnormal Negative 38 Urine Nitrite Negative N Negative Urine Bilirubin Negative N Negative Urine Glucose Negative N Negative Laboratory test 07/21/2015 [facility] TSH (Thyroid 0.96 ?IU/mL N 0.34-5.[address] Stim Horm) [place] [address] [phone] Blood Culture SEE RESULT BELOW 39 CBC Auto Diff 07/17/2015 [facility] White Blood 9.8 10^3/uL N 3.5-10.[address] [place] [address] [phone] Red Blood Count 4.80 10^6/uL N 4.0-5.4 Hemoglobin 16.4 g/dL N 14.0-18.0 Hematocrit 49 % N 42-52 Mean Corpuscular Volume 101 fL High 80-94 Mean Corpuscular Hemoglobin 34 pg High 27-31 Mean Corpuscular HGB Conc 34 g/dL N 31-36 Red Cell Distribution Width 13 % N 10.5-15 Platelet Count 144 10^3/uL Low 150-450 Mean Platelet Volume 8 um3 N 7.4-10.4 Abs Neutrophils 7.3 10^3/uL N 1.5-7.7 Abs Lymphocytes 1.4 10^3/uL N 1.0-4.8 Abs Monocytes 0.9 10^3/uL High 0-0.8 Abs Eosinophils 0.1 10^3/uL N 0-0.6 Abs Basophils 0 10^3/uL N 0-0.2 Abs Nucleated RBC 0.01 10^3/uL N Granulocyte % 74.9 % N 38-83 Lymphocyte % 14.4 % Low 25-47 Monocyte % 9.4 % High 1-9 Eosinophil % 1.0 % N 0-6 Basophil % 0.3 % N 0-2 Nucleated Red Blood Cells % 0.1 N Venous Blood 07/17/2015 [facility] Venous Blood pH 7.32 Low 7.33-7.43 Gas [address] [place] [address] [phone] Venous Pco2 60 mmHg High 41-51 Venous Po2 33 mmHg Low 35-45 Venous O2 Saturation 59.6 % Low 70-80 Venous Blood Base Excess 2.8 N 0-4 40 Venous Bicarbonate Hco3 25.8 mmol/L N 24-28 Laboratory test 07/17/2015 [facility] Lactic Acid 1.3 mmol/L N 0.5-2.0 41 finding [address] [place] [address] [phone] Comp Metabolic 07/17/2015 [facility] Sodium 131 mmol/L Low 133 -[address] [place] [address] [phone] Potassium 3.6 mmol/L N 3.5-5.0 Chloride 94 mmol/L Low 101-111 Co2 Carbon Dioxide 30 mmol/L N 22-32 Anion Gap 7 mmol/L N 2-11 Glucose 115 mg/dL High 70-100 Blood Urea Nitrogen 11 mg/dL N 6-24 Creatinine 0.66 mg/dL Low 0.67-1.17 BUN/Creatinine Ratio 16.7 N 8-20 Calcium 9.4 mg/dL N 8.6-10.3 Total Protein 6.9 g/dL N 6.4-8.9 Albumin 4.1 g/dL N 3.2-5.2 Globulin 2.8 g/dL N 2-4 Albumin/Globulin Ratio 1.5 N 1-3 Total Bilirubin 1.20 mg/dL High 0.2-1.0 Alkaline Phosphatase 66 U/L N 34-104 Alt 17 U/L N 7-52 Ast 16 U/L N 13-39 Egfr Non- 114.7 N >60 Egfr 147.5 N >60 42 Laboratory test 07/17/2015 [facility] Troponin-I (TnI) 0.00 ng/ mL N <0.03 [address] [place] [address] [phone] B-Type Natriuretic Peptide BNP 255 pg/mL High 44 Blood Culture SEE RESULT BELOW 45 Laboratory 07/15/2015 [facility] PSA Screening 17.570 High 0- 4.000 46 test finding [address] ng/[place] [address] [phone] Laboratory 07/15/2015 [facility] Urine Culture And SEE 47 test finding [address] [place] [address] BELOW [phone] Ua Routine 07/15/2015 [facility] Ua Specific 1.010 [place] Ua PH 5 Ua Color shira Ua Appera cloudy Ua WBC large Ua Protein trace Ua Glucose negative Ua Ketones negative Ua Bilirubin negative Ua Urobilinogen normal Ua Nitrite positive Ua Occult Blood large ++ Ua Routine 06/30/2015 [facility] Ua Specific [place] 1.015 Ua PH 7 Ua Color shira Ua Appera clear Ua WBC negative Ua Protein negative Ua Glucose negative Ua Ketones negative Ua Bilirubin negative Ua Urobilinogen normal Ua Nitrite negative Ua Occult Blood negative Laboratory test 06/23/2015 [facility] Urine Culture And SEE RESULT [address] Sensitivities BELOW [place], [place] [id number] [phone] Laboratory test 02/01/2015 [facility] B-Type Natriuretic 237 pg/ mL High [address] [place] [address] [phone] Lactic Acid 1.7 mmol/L N 0.5-2.2 Blood Culture SEE RESULT BELOW 50 CKMB 02/01/2015 [facility] CKMB ng/mL 1.8 ng/mL N 0.6-6.[address] [place] [address] [phone] Laboratory test 02/01/2015 [facility] Magnesium 1.8 mg/dL Low 1.9-2.7 finding [address] [place] [address] [phone] Creatine Kinase(CK) 32 U/L N 10-223 Troponin-I (TnI) 0.00 ng/mL N <0.03 51 Comp Metabolic Panel 02/01/2015 [facility] Sodium 134 mmol/L N 133-145 [address] [place] [address] [phone] Potassium 3.5 mmol/L N 3.5-5.0 Chloride 98 mmol/L Low 101-111 Co2 Carbon Dioxide 28 mmol/L N 22-32 Anion Gap 8 mmol/L N 2-11 Glucose 100 mg/dL N 70-100 Blood Urea Nitrogen 13 mg/dL N 6-24 Creatinine 0.65 mg/dL Low 0.67-1.17 BUN/Creatinine Ratio 20.0 N 8-20 Calcium 9.2 mg/dL N 8.6-10.3 Total Protein 6.3 g/dL Low 6.4-8.9 Albumin 4.0 g/dL N 3.2-5.2 Globulin 2.3 g/dL N 2-4 Albumin/Globulin Ratio 1.7 N 1-3 Total Bilirubin 1.00 mg/dL N 0.2-1.0 Alkaline Phosphatase 82 U/L N 34-104 Alt 13 U/L N 7-52 Ast 19 U/L N 13-39 Egfr Non- 116.8 N >60 Egfr 150.1 N >60 52 CBC Auto 02/01/2015 [facility] White Blood 11.9 10^3/uL High 4.8-10.[address] [facility] [place] [address] [phone] Red Blood Count 4.89 10^6/uL N 4.0-5.4 Hemoglobin 15.9 g/dL N 14.0-18.0 Hematocrit 48 % N 42-52 Mean Corpuscular Volume 98 fL High 80-94 Mean Corpuscular Hemoglobin 33 pg High 27-31 Mean Corpuscular HGB Conc 33 g/dL N 31-36 Red Cell Distribution Width 13 % N 10.5-15 Platelet Count 151 10^3/uL N 150-450 Mean Platelet Volume 9 um3 N 7.4-10.4 Abs Neutrophils 5.8 10^3/uL N 1.5-7.7 Abs Lymphocytes 4.5 10^3/uL N 1.0-4.8 Abs Monocytes 0.9 10^3/uL High 0-0.8 Abs Eosinophils 0.5 10^3/uL N 0-0.6 Abs Basophils 0.1 10^3/uL N 0-0.2 Abs Nucleated RBC 0.01 10^3/uL N Granulocyte % 49.0 % N 38-83 Lymphocyte % 38.2 % N 25-47 Monocyte % 7.7 % N 1-9 Eosinophil % 4.0 % N 0-6 Basophil % 1.1 % N 0-2 Nucleated Red Blood Cells % 0.1 N Laboratory test 02/01/2015 [facility] Blood Culture SEE RESULT 53, [address] [place] [address] [phone] Comp Metabolic 11/27/2014 [facility] Sodium 138 mmol/L N 133- [address] [place] [address] [phone] Potassium 4.0 mmol/L N 3.5-5.0 Chloride 99 mmol/L Low 101-111 Co2 Carbon Dioxide 34 mmol/L High 22-32 Anion Gap 5 mmol/L N 2-11 Glucose 145 mg/dL High 70-100 Blood Urea Nitrogen 15 mg/dL N 6-24 Creatinine 0.70 mg/dL N 0.67-1.17 BUN/Creatinine Ratio 21.4 High 8-20 Calcium 9.4 mg/dL N 8.6-10.3 Total Protein 6.0 g/dL Low 6.4-8.9 Albumin 3.8 g/dL N 3.2-5.2 Globulin 2.2 g/dL N 2-4 Albumin/Globulin Ratio 1.7 N 1-3 Total Bilirubin 1.30 mg/dL High 0.2-1.0 Alkaline Phosphatase 86 U/L N 34-104 Alt 13 U/L N 7-52 Ast 18 U/L N 13-39 Egfr Non- 107.2 N >60 Egfr 137.8 N >60 55 Lipid Profile 11/27/2014 [facility] Triglycerides 57 mg/dL N 56 (Trig/Chol/HDL) [address] [place] [address] [phone] Cholesterol 137 mg/dL N 57 HDL Cholesterol 53.1 mg/dL N 58 LDL Cholesterol 73 mg/dL N 59 Laboratory test 11/27/2014 [facility] Hemoglobin A1c 6.6 % High Less than [address] (Glyco HGB) 6.0 [place] [address] [phone] B-Type Natriuretic Peptide BNP 224 pg/mL N 61 Lipid Profile 01/01/2014 [facility] Triglycerides 54 mg/dL N 62, 63 (Trig/Chol/HDL) [address] [place] [address] [phone] Cholesterol 150 mg/dL N 64 HDL Cholesterol 63.6 mg/dL N 65 LDL Cholesterol 76 mg/dL N 66 Comp Metabolic Panel 01/01/2014 [facility] Sodium 135 mmol/L N 133-145 [address] [place] [address] [phone] Potassium 4.0 mmol/L N 3.7-5.6 Chloride 96 mmol/L Low 101-111 Co2 Carbon Dioxide 34 mmol/L High 22-32 Anion Gap 5 mmol/L N 2-11 Glucose 142 mg/dL High 70-100 Blood Urea Nitrogen 18 mg/dL N 6-24 Creatinine 0.84 mg/dL N 0.67-1.17 BUN/Creatinine Ratio 21.4 High 8-20 Calcium 9.4 mg/dL N 8.6-10.3 Total Protein 6.4 g/dL N 6.4-8.9 Albumin 4.2 g/dL N 3.2-5.2 Globulin 2.2 g/dL N 2-4 Albumin/Globulin Ratio 1.9 N 1-3 Total Bilirubin 1.10 mg/dL High 0.2-1.0 Alkaline Phosphatase 89 U/L N 34-104 Alt 23 U/L N 7-52 Ast 25 U/L N 13-39 Egfr Non- 87.1 N >60 Egfr 112.0 N >60 67 Laboratory test 01/01/2014 [facility] In House Hemoglobin A1c 5.9 5-7 finding Clotest 03/20/2013 [facility] Clotest (SEE NOTE) [address] [place] [address] [phone] Comp Metabolic 02/11/2013 [facility] Sodium 138 mmol/L 133- [address] [place] [address] [phone] Potassium 3.4 mmol/L Low 3.5-5.0 Chloride 104 [...] Non- 107.7 >60 Egfr 138.5 >60 69 CBC Auto 02/11/2013 [facility] White Blood 13.0 10^3/uL High 4.8-10.[address] [place] [address] [phone] Red Blood Count 4.75 10^6/uL 4.0-5.4 Hemoglobin [...] Red Blood Cells % 0.1 Laboratory test 02/11/2013 [facility] Troponin I 0.01 ng/mL 0 -0.06 70 finding [address] [place] [address] [phone] Laboratory test 12/04/2012 [facility] Hemoglobin A1c 6.3 5-7 finding Lipid Profile 12/01/2012 [facility] Triglycerides 58 mg/dL 40 -200 (Trig/Chol/HDL) [address] [place] [address] [phone] Cholesterol 158 mg/dL Less than 200 HDL Cholesterol 55 mg/dL 40-60 71 Cholesterol/HDL Ratio 2.9 Average 1-4.44 LDL Cholesterol 91.4 mg/dL Less Than 100 72 Comp Metabolic Panel 12/01/2012 [facility] Sodium 142 mmol/L 133-145 [address] [place] [address] [phone] Potassium 5.2 mmol/L High 3.5-5.0 Chloride 104 [...] Egfr Non- 80.6 >60 Egfr 103.6 >60 73 Laboratory test 03/10/2012 [facility] Throat [address] [facility] Culture <SEE NOTE> [place] [address] Full [phone] Arterial Blood 12/27/2011 [facility] PH 7.43 7.[address] -7.4 [place] [address] [phone] Pco2 40 mmHg 35-45 Po2 70 mmHg Low 80-100 O2 Saturation 94.0 % Low 95-98 Base Excess 2.0 -2.0-2.0 75 Bicarbonate 26.2 mmol/L 19-31 Fio2 ROOM AIR Laboratory test 12/03/2011 [facility] In House Hemoglobin A1c 5.4 5-7 finding CBC Auto Diff 11/29/2011 [facility] White Blood Count 7.2 CUMM 4.8-10.8 [address] [place] [address] [phone] Red Cell Count 4.67 CUMM 4.6-6.2 Hemoglobin [...] 0-0.6 Abs Basophils 0 0-0.2 Lipid Profile 11/29/2011 [facility] Triglyceride 63 mg/dL 40- 200 (Trig/Chol/HDL) [address] [place] [address] [phone] Cholesterol 169 mg/dL Less Than 200 76 High Density Lipoprotein 57 mg/dL 40-60 77 Cholesterol/HDL Ratio 2.96 AVERAGE 1-4.97 Low Density Lipoprotein 99 mg/dL Less Than 100 78 Comp Metabolic Panel 11/29/2011 [facility] Sodium 138 mmol/L 135-145 [address] [place] [address] [phone] Potassium 3.9 mmol/L 3.5-5.0 Chloride 103 mmol/L 101-111 Co2 (Carbon Dioxide) 33.0 mmol/L High 22-32 Anion Gap 2.0 mmol/L 2-11 79 Glucose 141 mg/dL High 70-100 BUN 17 mg/dL 6-24 Creatinine 0.9 mg/dL 0.50-1.40 One Over Creatinine 1.11 BUN/Creatinine Ratio 18.9 8-20 Calcium 9.2 mg/dL 8.1-9.9 Total Protein 6.1 GM/DL Low 6.2-8.1 Albumin 3.9 GM/DL 3.2-5.2 Globulin 2.2 GM/DL 2-4 Albumin/Globulin Ratio 1.8 1-3 Bilirubin Total 1.2 mg/dL 0.4-1.5 80 Alkaline Phosphatase 50 U/L 39-117 Alt (SGPT) 17 U/L 17-63 Ast (Sgot) 18 U/L 12-42 eGFR Non- 80.8 > 60 eGFR 103.9 > [address] [facility] 11/29/2011 [facility] TSH 0.73 MIU/ML 0.34- 5.60 Panel [address] [place] [address] [phone] Laboratory test 05/26/2011 [facility] Hemoglobin A1c 6.1 5-7 finding Laboratory test 11/23/2010 [facility] Hemoglobin A1c 6.1 5-[address] [facility] 11/17/2010 [facility] TSH 0.77 MIU/ML 0.34- 5.60 Panel [address] [place] [address] [phone] Comp Metabolic 11/17/2010 [facility] Sodium 142 mmol/L 135- 145 Panel [address] [place] [address] [phone] Potassium 5.3 mmol/L High 3.5-5.0 Chloride 102 mmol/L 101-111 Co2 (Carbon Dioxide) 33.0 mmol/L High 22-32 Anion Gap 7.0 mmol/L 2-11 82 Glucose 117 mg/dL High 70-100 BUN 19 mg/dL 6-24 Creatinine 0.80 mg/dL 0.50-1.40 One Over Creatinine 1.20 BUN/Creatinine Ratio 23.8 High 8-20 Calcium 9.8 mg/dL 8.1-9.9 Total Protein 5.8 GM/DL Low 6.2-8.1 Albumin 4.1 GM/DL 3.2-5.2 Globulin 1.7 GM/DL Low 2-4 Albumin/Globulin Ratio 2.4 1-3 Bilirubin Total 1.1 mg/dL 0.4-1.5 83 Alkaline Phosphatase 51 U/L 39-117 Alt (SGPT) 17 U/L 17-63 Ast (Sgot) 21 U/L 12-42 eGFR Non- 92.8 > 60 eGFR 119.3 > 60 84 Lipid Profile 11/17/2010 [facility] Triglyceride 79 mg/dL 40- 200 (Trig/Chol/HDL) [address] [place] [address] [phone] Cholesterol 175 mg/dL Less Than 200 85 High Density Lipoprotein 61 mg/dL High 40-60 86 Cholesterol/HDL Ratio 2.87 AVERAGE 1-4.97 Low Density Lipoprotein 98 mg/dL Less Than 100 87 CBC Auto Diff 11/17/2010 [facility] White Blood 7.6 CUMM 4.8- 10.[address] [place] [address] [phone] Red Cell Count 4.70 CUMM 4.6-6.2 Hemoglobin [...] 0-0.6 Abs Basophils 0 0-0.2 Laboratory test 05/25/2010 [facility] Hemoglobin A1c 6.4 % High Less Than [address] 6[address]0 [place] [id number] [phone] DR [facility] 05/25/2010 [facility] TSH 0.56 0.34-5.[address] MIU/[place] [address] [phone] Comp Metabolic 05/25/2010 [facility] Sodium 140 135-[address] mmol/[place] [address] [phone] Potassium 4.9 mmol/L 3.5-5.0 Chloride 104 mmol/L 101-111 Co2 (Carbon Dioxide) 31.0 mmol/L 22-32 Anion Gap 5.0 mmol/L 2-11 89 Glucose 147 mg/dL High 70-100 90 BUN 24 mg/dL 6-24 Creatinine 0.80 mg/dL 0.50-1.40 One Over Creatinine 1.20 BUN/Creatinine Ratio 30.0 High 8-20 Calcium 9.4 mg/dL 8.1-9.9 Total Protein 5.6 GM/DL Low 6.2-8.1 Albumin 4.2 GM/DL 3.2-5.2 Globulin 1.4 GM/DL Low 2-4 Albumin/Globulin Ratio 3.0 1-3 Bilirubin Total 0.9 mg/dL 0.4-1.5 91 Alkaline Phosphatase 59 U/L 39-117 Alt (SGPT) 16 U/L Low 17-63 Ast (Sgot) 18 U/L 12-42 eGFR Non- 98.9 > 60 eGFR 119.6 > 60 92 Lipid Profile 05/25/2010 [facility] Triglyceride 74 mg/dL 40- 200 (Trig/Chol/HDL) [address] [place] [address] [phone] Cholesterol 180 mg/dL Less Than 200 93 High Density Lipoprotein 54 mg/dL 40-60 94 Cholesterol/HDL Ratio 3.33 AVERAGE 1-4.97 Low Density Lipoprotein 111 mg/dL High Less Than 100 95 Manual Differential 05/25/2010 [facility] Polysegmented 68 % 38-[address] [place] [address] [phone] Lymphocyte 17 % Low 25-47 Monocyte 11 % 0-13 Eosinophil 3 % 0-6 Atypical Lymph 1 % 0-6 Absolute Neutrophil Count 6.3 Anisocytosis SLIGHT Macrocytosis SLIGHT CBC With 05/25/2010 [facility] White Blood 9.3 CUMM 4.8-10.[address] [place] [address] [phone] Red Cell Count 4.80 CUMM 4.6-6.2 Hemoglobin 16.2 g/dL 14.0-18.0 Hematocrit 47 % 42-52 Mean Corpuscular Volume 98 um3 High 80-94 Mean Corpuscular Hemoglob 34 pg High 27-31 Mean Corpuscular HGB Cone 34 g/dL 32-36 Redcell Distribution WDTH 13 % 10.5-15 Platelet Count 178 CUMM 150-450 Mean Platelet Volume 8.9 um3 7.4-10.4 96 Lipid Profile 11/18/2009 [facility] Triglyceride 46 mg/dL 40- 200 (Trig/Chol/HDL) [address] [place] [address] [phone] Cholesterol 168 mg/dL Less Than 200 97 High Density Lipoprotein 57 mg/dL 40-60 98 Cholesterol/HDL Ratio 2.95 AVERAGE 1-4.97 Low Density Lipoprotein 102 mg/dL High Less Than 100 99 Laboratory test finding 11/18/2009 [facility] Ast (Sgot) 24 U/L 12-42 [address] [place] [address] [phone] Alt (SGPT) 20 U/L 17-63 DR [facility] 06/04/2009 [facility] TSH 0.69 MIU/ML 0.34- 5.60 100 Panel [address] [place] [address] [phone] Comp Metabolic 06/04/2009 [facility] Sodium 139 mmol/L 135- 145 Panel [address] [place] [address] [phone] Potassium 4.8 mmol/L 3.5-5.0 Chloride 102 mmol/L 101-111 Co2 (Carbon Dioxide) 32.0 mmol/L 22-32 Anion Gap 5.0 mmol/L 2-11 101 Glucose 149 mg/dL High 70-100 102 BUN 18 mg/dL 6-24 Creatinine 0.90 mg/dL 0.50-1.40 One Over Creatinine 1.10 BUN/Creatinine Ratio 20.0 8-20 Calcium 9.6 mg/dL 8.1-9.9 103 Total Protein 5.7 GM/DL Low 6.2-8.1 Albumin 4.1 GM/DL 3.2-5.2 Globulin 1.6 GM/DL Low 2-4 Albumin/Globulin Ratio 2.6 1-3 Bilirubin Total 1.5 mg/dL 0.4-1.5 104 Alkaline Phosphatase 56 U/L 39-117 Alt (SGPT) 19 U/L 17-63 Ast (Sgot) 20 U/L 12-42 eGFR Non- 86.5 > 60 eGFR 104.7 > 60 105 Lipid Profile 06/04/2009 [facility] Triglyceride 62 mg/dL 40- 200 (Trig/Chol/HDL) [address] [place] [address] [phone] Cholesterol 150 mg/dL Less Than 200 106 High Density Lipoprotein 48 mg/dL 40-60 107 Cholesterol/HDL Ratio 3.13 AVERAGE 1-4.97 Low Density Lipoprotein 90 mg/dL Less Than 100 108 CBC With 06/04/2009 [facility] White Blood 9.1 CUMM 4.8-10.8 Electronic Diff [address] [place] [address] [phone] Red Cell Count 5.07 CUMM 4.6-6.2 Hemoglobin 16.7 g/dL 14.0-18.0 Hematocrit 49 % 42-52 Mean Corpuscular Volume 97 um3 High 80-94 Mean Corpuscular Hemoglob 33 pg High 27-31 Mean Corpuscular HGB Cone 34 g/dL 32-36 Redcell Distribution WDTH 13 % 10.5-15 Platelet Count 180 CUMM 150-450 Mean Platelet Volume 9.7 um3 7.4-10.4 Gran % 56.6 % 38-83 Lymph % 32.2 % 25-47 Mononuclear % 9.2 % High 1-9 Eosinophil % 1.6 % 0-6 Basophil % 0.4 % 0-2 Abs Lymphs 2.9 1.0-4.8 Abs Mononuclear 0.8 0-0.8 Absolute Neutrophil Count 5.1 1.5-7.7 Abs Eosinophils 0.1 0-0.6 Abs Basophils 0 0-0.2 Laboratory test 06/04/2009 [facility] PSA Screening 2.53 NG/ML 0-4 [address] [place] [address] [phone] Laboratory test 02/20/2009 [facility] BNP Evaluatr 130.0 High 0-[address] pg/[place] [address] [phone] Comp Metabolic 02/20/2009 [facility] Sodium 141 mmol/L 135- [address] [place] [address] [phone] Potassium 5.8 mmol/L High 3.5-5.0 Chloride 105 mmol/L 101-111 Co2 (Carbon Dioxide) 32.0 mmol/L 22-32 Anion Gap 4.0 mmol/L 2-11 110 Glucose 138 mg/dL High 70-100 111 BUN 13 mg/dL 6-24 Creatinine 0.80 mg/dL 0.50-1.40 One Over Creatinine 1.20 BUN/Creatinine Ratio 16.3 8-20 Calcium 10.0 mg/dL High 8.1-9.9 112 Total Protein 5.8 GM/DL Low 6.2-8.1 Albumin 4.0 GM/DL 3.2-5.2 Globulin 1.8 GM/DL Low 2-4 Albumin/Globulin Ratio 2.2 1-3 Bilirubin Total 1.4 mg/dL 0.4-1.5 113 Alkaline Phosphatase 59 U/L 39-117 Alt (SGPT) 22 U/L 17-63 Ast (Sgot) 24 U/L 12-42 eGFR Non- 99.1 > 60 eGFR 119.9 > 60 114 Laboratory test 02/20/2009 [facility] TSH 0.58 MIU/ML 0.34- 5.[address] [place] [address] [phone] CBC With 05/02/2008 [facility] White Blood 7.2 CUMM 4.8-10.8 Electronic Diff [address] [place] [address] [phone] Red Cell Count 4.82 CUMM 4.6-6.2 Hemoglobin [...] Eosinophils 0.2 0-0.6 Abs Basophils 0 0-0.2 Protime 05/02/2008 [facility] Protime 12.5 10.9-13.3 [address] [place] [address] [phone] Inr 1.07 115 Laboratory test 05/02/2008 [facility] PTT (Aptt) 23.0 20.1- 28.2 116 finding [address] [place] [address] [phone] Basic Metabolic 05/02/2008 [facility] Sodium 141 mmol/L 135- 145 Panel [address] [place] [address] [phone] Potassium 5.4 mmol/L High 3.5-5.0 Chloride 107 mmol/L 101-111 Co2 (Carbon Dioxide) 30.8 mmol/L 22-32 Anion Gap 3.2 mmol/L 2-11 117 BUN 16 mg/dL 6-24 Creatinine 0.89 mg/dL 0.5-1.4 One Over Creatinine 1.10 BUN/Creatinine Ratio 18.0 8-20 Calcium 9.5 mg/dL 8.1-9.9 118 Glucose 104 mg/dL High 70-100 119 Lipid Profile 11/20/2007 [facility] Triglyceride 93 mg/dL 40- 200 (Trig/Chol/HDL) [address] [place] [address] [phone] Cholesterol 163 mg/dL Less Than 200 120 High Density Lipoprotein 52 mg/dL 40-60 121 Cholesterol/HDL Ratio 3.13 AVERAGE 1-4.97 Low Density Lipoprotein 92 mg/dL Less Than 100 122 Liver Function 11/20/2007 [facility] Total Protein 6.4 GM/DL 6.2-8.1 Panel [address] [place] [address] [phone] Albumin 4.2 GM/DL 3.2-5.2 Globulin 2.2 GM/DL 2-4 Albumin/Globulin Ratio 1.9 1-3 Bilirubin Total 1.4 mg/dL 0.4-1.5 Bilirubin Direct 0.3 mg/dL 0.1-0.5 Indirect Bilirubin 1.1 mg/dL High 0.1-0.75 Alkaline Phosphatase 45 U/L 39-117 Alt (SGPT) 18 U/L 17-63 Ast (Sgot) 23 U/L 12-42 Laboratory test finding 09/12/2007 [facility] Alt (SGPT) 22 U/L 17-[address] [place] [address] [phone] Ast (Sgot) 23 U/L 12-42 Lipid Profile 09/12/2007 [facility] Cholesterol/HDL 3.26 1- 4.97 (Trig/Chol/HDL) [address] [place] [address] [phone] Cholesterol 163 mg/dL Less Than 200 123 Triglyceride 117 mg/dL 40-200 High Density Lipoprotein 50 mg/dL 40-60 Low Density Lipoprotein 90 mg/dL Less Than 100 124 CBC W/ Electronic 05/24/2007 [facility] White Blood 6.8 CUMM 4.8-10.8 [address] [place] [address] [phone] Abs Basophils 0 0-0.2 Abs Eosinophils 0.2 0-0.6 Absolute Neutrophil Count 3.9 1.5-7.7 Abs Lymphs 2.0 1.0-4.8 Abs Mononuclear 0.7 0-0.8 Basophil % 0.7 % 0-2 Hematocrit 48 % 42-52 Hemoglobin 16.5 g/dL 14.0-18.0 Eosinophil % 2.7 % 0-6 Gran % 56.9 % 38-83 Lymph % 29.7 % 20-45 Mean Corpuscular HGB Cone 35 g/dL 32-36 Mean Corpuscular Hemoglob 33 pg High 27-31 Mean Corpuscular Volume 95 um3 High 80-94 Mean Platelet Volume 9.4 um3 7.4-10.4 Mononuclear % 10.0 % High 1-9 Platelet Count 209 CUMM 150-450 Red Cell Count 4.99 CUMM 4.6-6.2 Redcell Distribution WDTH 13 % 10.5-15 Comp Metabolic Panel 05/24/2007 [facility] One Over Creatinine 1.[address] [place] [address] [phone] Anion Gap 6.0 mmol/L 2-11 126 Albumin/Globulin Ratio 2.2 1-3 Albumin 4.3 GM/DL 3.2-5.2 Alkaline Phosphatase 43 U/L 39-117 Alt (SGPT) 21 U/L 17-63 Ast (Sgot) 25 U/L 12-42 BUN 11 mg/dL 6-24 Calcium 9.6 mg/dL 8.7-10.2 Chloride 104 mmol/L 101-111 Co2 (Carbon Dioxide) 30.0 mmol/L 22-32 Globulin 2.0 GM/DL 2-4 Glucose 110 mg/dL High 70-105 Potassium 5.0 mmol/L 3.5-5.0 Sodium 140 mmol/L 135-145 Bilirubin Total 1.4 mg/dL 0.4-1.5 Total Protein 6.3 GM/DL 6.2-8.1 BUN/Creatinine Ratio 12.2 8-20 Creatinine 0.9 mg/dL 0.5-1.4 Lipid Profile 05/24/2007 [facility] Cholesterol/HDL 3.67 1- 4.97 (Trig/Chol/HDL) [address] [place] [address] [phone] Cholesterol 213 mg/dL High Less Than 200 127 Triglyceride 92 mg/dL 40-200 High Density Lipoprotein 58 mg/dL 40-60 Low Density Lipoprotein 137 mg/dL High Less Than 100 128 Laboratory test 05/24/2007 [facility] PSA Screening 1.91 NG/ML 0-4 [address] [place] [address] [phone] TSH 0.54 MIU/ML 0.34-5.60 1 Because ethnic data is not always readily [...] 15-29 5 Kidney failure <15 (or dialysis) 2 [id number] Therapeutic target for the treatment of diabetes mellitus patients is <7% HBA1C, and in selective patients <6.0%. Please refer to [place] [employer] diabetic care guidelines for further information. 4 Desirable: <150 Borderline High: 150-199 High: 200-499 Very High: >500 5 Desirable: <200 Borderline High: 200-239 High: >239 6 Low: <40 Desirable: 40-60 High: >60 7 Desirable: <100 Near Optimal: 100-129 Borderline High: 130-159 High: 160-189 Very High: >189 8 Because ethnic data is not always readily [...] 15-29 5 Kidney failure <15 (or dialysis) 9 FASTING 10 Normal Range 180 to 914 Indeterminate Range 145 to 180 Deficient Range <145 11 FASTING 12 [id number] 13 SEE RESULT BELOW Name: AIDAN PEARL : [address]: Breana Fuller Acct: [id number] Unit: [id number] AGE: 86 Location: [facility] Re12/27/16 SEX: M Status: DEP ER SPEC: [id number] MAYUR: 12/27/16 [facility] DR: Breana Currie DO REQ: [id number] RECD: 12/27/16 STATUS: NIKKO BACK DR: Pawel Herring III, MD _ SOURCE: LEG,LEFT SPDESC: ORDERED: Culture Stain COMMENTS: [id number] Procedure Result Reported Site Wound/Misc Gram Stain Final 12/27/16- 1149 ML 1+ Neutrophils No Organisms Seen Wound/Misc Culture Final 12/29/16- 0850 ML No Growth Day 2 * ML - MAIN LAB ([facility]) . END OF REPORT * ML=Testing performed at Main Lab DEPARTMENT OF PATHOLOGY, [address] [place] [address] Harlan Montelongo M.D. Director [facility] # [id number] 14 Because ethnic data is not always [...] 5 Kidney failure <15 (or dialysis) 15 Because ethnic data is not always [...] 5 Kidney failure <15 (or dialysis) 16 Therapeutic target for the treatment of diabetes Mellitus patients is <7% HBA1C, and in selective patients <6.0%.Please refer to [place] [employer] Diabetic care guidelines for further information. 17 soon 18 Because ethnic data is not always readily [...] 15-29 5 Kidney failure <15 (or dialysis) 19 Therapeutic target for the treatment of diabetes Mellitus patients is <7% HBA1C, and in selective patients <6.0%.Please refer to [place] [employer] Diabetic care guidelines for further information. 20 Because ethnic data is not always readily [...] 15-29 5 Kidney failure <15 (or dialysis) 21 Therapeutic target for the treatment of diabetes Mellitus patients is <7% HBA1C, and in selective patients <6.0%.Please refer to [place] [employer] Diabetic care guidelines for further information. 22 Because ethnic data is not always readily [...] 15-29 5 Kidney failure <15 (or dialysis) 23 Desirable <150 Borderline high 150-199 High 200-499 Very High >500 24 Desirable <200 Borderline high 200-239 High >239 25 Low <40 Desirable: 40-60 High: >60 26 Desirable: <100 mg/dL Near Optimal: 100-129 mg/dL Borderline High: 130-159 mg/dL High: 160-189 mg/dL Very High: >189 mg/dL 27 >100 to <200 pg/mL: likely compensated [...] 5 Kidney failure <15 (or dialysis) 32 Because ethnic data is not always readily [...] 15-29 5 Kidney failure <15 (or dialysis) 33 Reference ranges based on room air. 34 [facility] Severe Sepsis and Septic Shock Management Bundle Measure requires all lactic acids initially measuring >2.0mmol/L be repeated. 35 Because ethnic data is not always readily [...] 15-29 5 Kidney failure <15 (or dialysis) 36 Reference Range and Interpretation: TnI (ng/mL) Interpretation Less Than 0.03 ng/mL Not supportive of diagnosis of OR 0.03 - 0.50 ng/mL Indeterminate: suggest serial studies if clinically indicated. Greater than 0.5 ng/mL Consistent with diagnosis of OR 37 >100 to <200 pg/mL: likely compensated congestive heart failure (CHF) 200 to 400 pg/mL: likely moderate CHF >400 pg/mL: likely moderate to severe CHF 38 *Ascorbic acid is present which may interfere with detection of blood. 39 SEE RESULT BELOW Name: AIDAN PEARL : [address]: Nereida Diego DO Acct: [id number] Unit: [id number] AGE: 84 Location: [place] [address] Re07/21/15 SEX: M Status: ADM IN SPEC: [id number] MAYUR: 07/21/[address]: Clem Cortes MD REQ: [id number] RECD: 07/21/15 STATUS: NIKKO BACK DR: [facility] Pawel Herring III, MD _ SOURCE: BLOOD,VENO SPDESC: ORDERED: Blood Cult Procedure Result Reported Site Pediatric Blood Culture Final 07/26/152042 ML No Growth Day 5 * ML - MAIN LAB ([facility]) . END OF REPORT * ML=Testing performed at Main Lab DEPARTMENT OF PATHOLOGY, [address] [place] [address] Harlan Montelongo M.D. Director [facility] # [id number] 40 Reference ranges based on room air. 41 [facility] Severe Sepsis and Septic Shock Management Bundle Measure requires all lactic acids initially measuring >2.0mmol/L be repeated. 42 Because ethnic data is not always readily [...] 15-29 5 Kidney failure <15 (or dialysis) 43 Reference Range and Interpretation: TnI (ng/mL) Interpretation Less Than 0.03 ng/mL Not supportive of diagnosis of OR 0.03 - 0.50 ng/mL Indeterminate: suggest serial studies if clinically indicated. Greater than 0.5 ng/mL Consistent with diagnosis of OR 44 >100 to <200 pg/mL: likely compensated congestive heart failure (CHF) 200 to 400 pg/mL: likely moderate CHF >400 pg/mL: likely moderate to severe CHF 45 SEE RESULT BELOW Name: AIDAN PEARL : [address]: Rico Huddleston MD Acct: [id number] Unit: [id number] AGE: 84 Location: ED Re07/17/15 SEX: M Status: DEP ER SPEC: [id number] MAYUR: 07/17/15 [facility] DR: Rico Huddleston MD REQ: [id number] RECD: 07/17/15 STATUS: NIKKO BACK DR: Pawel Herring III, MD _ SOURCE: BLOOD,VENO SPDES: ORDERED: Blood Cult Procedure Result Reported Site Aerobic Culture Bottle Final 07/22/15- 1623 ML No Growth Day 5 Anaerobic Culture Bottle Final 07/22/15- 162 ML No Growth Day 5 * ML - MAIN LAB ([facility]) . END OF REPORT * ML=Testing performed at Main Lab DEPARTMENT OF PATHOLOGY, [address] [place] [address] Harlan Montelongo M.D. Director [facility] # [id number] 46 Serum levels of PSA measured using the Jeanine Nando DXI Hybritech immunoassay should not be interpreted as absolute evidence of the presence or absence of disease. The PSA value should be used in conjunction with other pertinent clinical diagnostic procedures. The values obtained with different assay methods or kits cannot be used interchangeably. 47 SEE RESULT BELOW Name: AIDAN PEARL : [address]: James Quinteros NP Acct: [id number] Unit: [id number] AGE: 84 Location: [facility] Re07/15/15 SEX: M Status: REG REF SPEC: [id number] MAYUR: 07/15/15-1025 [facility] : James Quinteros NP REQ: [id number] RECD: 07/15/15 STATUS: COMP _ SOURCE: URINE SPDESC: ORDERED: Urine Culture Procedure Result Reported Site Urine Culture Final 07/18/15- 839 ML Organism 1 STAPHYLOCOCCUS AUREUS Anchor Count >100,000 (Many) CFU/ML 1. STAPHYLOCOCCUS AUREUS [...] These antibiotics are not available in the [facility] Formulary Contact the Microbiology Department for any additional antibiotic reporting. * ML - MAIN LAB ([facility]) . END OF REPORT * ML=Testing performed at Main Lab DEPARTMENT OF PATHOLOGY, [address] [place] [address] Harlan Montelongo M.D. Director [facility] # [id number] 48 SEE RESULT BELOW Name: AIDAN PEARL : [address]: Jack Amin MD Acct: [id number] Unit: [id number] AGE: 84 Location: [facility] Re06/23/15 SEX: M Status: DEP ER SPEC: [id number] MAYUR: 06/23/15 [facility] [address]: Jack Amin MD REQ: [id number] RECD: 06/23/15 STATUS: NIKKO BACK DR: Pawel Herring III, MD _ SOURCE: URINE SPDESC: ORDERED: Urine Culture Procedure Result Reported Site Urine Culture Final 06/25/15- 0759 ML Organism 1 STAPHYLOCOCCUS AUREUS Anchor Count >100,000 (Many) CFU/ML 1. STAPHYLOCOCCUS AUREUS [...] These antibiotics are not available in the [facility] Formulary Contact the Microbiology Department for any additional antibiotic reporting. * ML - MAIN LAB ([facility]) . END OF REPORT * ML=Testing performed at Main Lab DEPARTMENT OF PATHOLOGY, [address] [place] [address] Harlan Montelongo M.D. Director [facility] # [id number] 49 >100 to <200 pg/mL: likely compensated congestive heart failure (CHF) 200 to 400 pg/mL: likely moderate CHF >400 pg/mL: likely moderate to severe CHF 50 SEE RESULT BELOW Name: AIDAN PEARL : [address]: Hammad Butler DO Acct: [id number] Unit: [id number] AGE: 84 Location: ED Re02/01/15 SEX: M Status: DEP ER SPEC: [id number] MAYUR: 02/01/15-1949 [facility] DR: Hammad Butler DO REQ: [id number] RECD: 02/01/15 STATUS: RES OTHR DR: Pawel Herring III, MD _ SOURCE: BLOOD,VENO SPDESC: ORDERED: Blood Cult COMMENTS: Patient is On Antibiotics? NO Procedure Result Verified Site Aerobic Culture Bottle Preliminary 02/02/15- 153 ML Aerobic Bottle Gram Stain Gram Variable Coccobacilli Anaerobic Culture Bottle PENDING * ML - MAIN LAB ([facility]) . END OF REPORT * ML=Testing performed at Main Lab DEPARTMENT OF PATHOLOGY, [address] [place] [address] Harlan Montelongo M.D. Director [facility] # [id number] 51 Reference Range and Interpretation: TnI (ng/mL) Interpretation Less Than 0.03 ng/mL Not supportive of diagnosis of OR 0.03 - 0.50 ng/mL Indeterminate: suggest serial studies if clinically indicated. Greater than 0.5 ng/mL Consistent with diagnosis of OR 52 Because ethnic data is not always readily [...] 15-29 5 Kidney failure <15 (or dialysis) 53 Patient is On Antibiotics? NO 54 SEE RESULT BELOW Name: AIDAN PEARL : [address]: Hammad Butler DO Acct: [id number] Unit: [id number] AGE: 84 Location: ED Re02/01/15 SEX: M Status: DEP ER SPEC: [id number] MAYUR: 02/[birth year]-1949 [facility] [address]: Hammad Butler DO REQ: [id number] RECD: 02/01/15 STATUS: NIKKO BACK DR: Pawel Herring III, MD _ SOURCE: BLOOD,VENO SPDESC: ORDERED: Blood Cult COMMENTS: Patient is On Antibiotics? NO Verbal to [id number] by [id number] at 1541 on 02/02/15. Results read back [...] performed at Main Lab DEPARTMENT OF PATHOLOGY, [address] [place] [address] Harlan Montelongo M.D. Director [facility] # [id number] 55 Because ethnic data is not always readily [...] 15-29 5 Kidney failure <15 (or dialysis) 56 Desirable <150 Borderline high 150-199 High 200-499 Very High >500 57 Desirable <200 Borderline high 200-239 High >239 58 Low <40 Desirable: 40-60 High: >60 59 Desirable: <100 mg/dL Near Optimal: 100-129 mg/dL Borderline High: 130-159 mg/dL High: 160-189 mg/dL Very High: >189 mg/dL 60 Therapeutic target for the treatment of diabetes Mellitus patients is <7% HBA1C, and in selective patients <6.0%.Please refer to [place] [employer] Diabetic care guidelines for further information. 61 >100 to <200 pg/mL: likely compensated congestive heart failure (CHF) 200 to 400 pg/mL: likely moderate CHF >400 pg/mL: likely moderate to severe CHF [facility] 62 PT IS FASTING 63 Desirable <150 Borderline high 150-199 High 200-499 Very High >500 64 Desirable <200 Borderline high 200-239 High >239 65 Low <40 Desirable: 40-60 High: >60 66 Desirable <100 Near Optimal 100-129 Borderline high 130-159 High 160-189 Very High >189 67 Because ethnic data is not always readily [...] 15-29 5 Kidney failure <15 (or dialysis) 68 RUN DATE: 03/21/13 [facility] LAB LIVE PAGE 1 RUN TIME: [address] [place] [id number] Specimen Inquiry Name: VASUAIDAN : [address]: Peter Ross MD Acct: [id number] Unit: [id number] AGE: 82 Location: ENDO Re03/20/13 SEX: M Status: REG REF SPEC: [id number] MAYUR: 03/20/13-[address]: Peter Ross MD REQ: [id number] RECD: 03/20/131143 STATUS: NIKKO [facility] DR: Pawel Herring III, MD _ SOURCE: [facility]: ORDERED: Clotest Procedure Result Verified Site Clotest Final 03/21/13- 0810 ML Clotest Negative END OF REPORT * ML=Testing performed at Main Lab DEPARTMENT OF PATHOLOGY, [address] [place] [address] Harlan Montelongo M.D. Director [facility] Permit #[id number] 69 Because ethnic data is not always [...] 5 Kidney failure <15 (or dialysis) 70 Reference Range and Interpretation: TnI (ng/mL) Interpretation Less Than 0.06 ng/mL Not supportive of diagnosis of OR 0.06 - 0.50 ng/mL Indeterminate: suggest serial studies if clinically indicated. Greater than 0.5 ng/mL Consistent with diagnosis of OR 71 HDL Interpretation: Undesirable: High Risk: Less than 40 mg/dL Desirable: Low Risk: Greater than 60 mg/dL 72 LDL Interpretation: Low Risk Optimal Level: LDL Less than 100 mg/dL Near or Above Optimal: LDL 100-129 mg/dL Borderline High Risk: LDL 130-159 mg/dL High Risk: LDL 160-189 mg/dL Very High Risk: LDL Greater than 189 mg/dL 73 Because ethnic data is not always readily [...] 15-29 5 Kidney failure <15 (or dialysis) 74 RUN DATE: 03/12/12 [facility] NMI LIVE PAGE 1 RUN TIME: 1238 Specimen Inquiry RUN USER: INTERFACE Name: AIDAN PEARL Stephani Status: REG REF Re03/10/12 Age/Sex: 81/M Unit#: [id number] Location: [facility] : 29 SPEC #: [id number] MAYUR: 03/10/12 STATUS: COMP REQ #: [id number] RECD: 03/10/12-[address]: Niko MONTERO,Sri Rene SOURCE: THROAT ENTR: 03/10/12-[address]: ZAID: ORDERED: THROAT CULTURE QUERIES: MEDENT REQUISITION # [id number] ACT WKST: B 03/12/12 #1 Procedure Result Verified Site > THROAT CULTURE FULL Final 03/12/12- 1238 ML Organism 1 YEAST QUANTITY MANY Organism 2 NORMAL CANDI QUANTITY MANY FULL THROAT CULTURES ARE CLINICALLY INDICATED TO DETECT THE PRESENCE OF GROUP A STREP, ARCANOBACTERIUM AND YEAST. - [facility] Permit #[id number] [address] [place] [address] DEPARTMENT OF PATHOLOGY, [address] [place] [address] [facility] Permit #[id number] Vinicius Mahan M.D. Lockstitch Zipper Setter 75 REFERENCE RANGES BASED ON ROOM AIR 76 CHOLESTEROL INTERPRETATION: Desirable: Less than 200 MG/DL Borderline-High Risk: 200-239 MG/DL High-Risk: 240 MG/DL and over 77 HDL INTERPRETATION: Undesirable: High Risk: Less than 40 MG/DL Desirable: Low Risk: Greater than 60 MG/DL 78 LDL INTERPRETATION: Low Risk Optimal Level: LDL Less than 100 MG/DL Near or Above Optimal: LDL 100-129 MG/DL Borderline High Risk: LDL 130-159 MG/DL High Risk: LDL 160-189 MG/DL Very High Risk: LDL Greater than 189 MG/DL 79 Anion gap measurement may be of limited value in the presence of any alkalosis, especially in a combined acid base disorder. . 80 A metabolite of Naproxen, O-desmethylnaproxen, has been shown to interfere with the Jendrassik-Bella method for measuring total bilirubin. Samples from patients who have taken Naproxen have shown spurious elevation in total bilirubin levels. 81 Because ethnic data is not always readily [...] 15-29 5 Kidney failure <15 (or dialysis) 82 Anion gap measurement may be of limited value in the presence of any alkalosis, especially in a combined acid base disorder. . 83 A metabolite of Naproxen, O-desmethylnaproxen, has been shown to interfere with the Jendrassik-Bella method for measuring total bilirubin. Samples from patients who have taken Naproxen have shown spurious elevation in total bilirubin levels. 84 Because ethnic data is not always readily [...] 15-29 5 Kidney failure <15 (or dialysis) 85 CHOLESTEROL INTERPRETATION: Desirable: Less than 200 MG/DL Borderline-High Risk: 200-239 MG/DL High-Risk: 240 MG/DL and over 86 HDL INTERPRETATION: Undesirable: High Risk: Less than 40 MG/DL Desirable: Low Risk: Greater than 60 MG/DL 87 LDL INTERPRETATION: Low Risk Optimal Level: LDL Less than 100 MG/DL Near or Above Optimal: LDL 100-129 MG/DL Borderline High Risk: LDL 130-159 MG/DL High Risk: LDL 160-189 MG/DL Very High Risk: LDL Greater than 189 MG/DL 88 THERAPEUTIC TARGET FOR THE TREATMENT OF DIABETES MELLITUS PATIENTS IS <7% HBA1C, AND IN SELECTIVE PATIENTS <6.0%. PLEASE REFER TO [employer] DIABETIC CARE GUIDELINES FOR FURTHER INFORMATION. 89 Anion gap measurement may be of limited value in the presence of any alkalosis, especially in a combined acid base disorder. . 90 Note change in reference range as of 03/07/08. The change was based on recommendations from the [place] [employer]. 91 A metabolite of Naproxen, O-desmethylnaproxen, has been shown to interfere with the Jendrassik-Erin method for measuring total bilirubin. Samples from patients who have taken Naproxen have shown spurious elevation in total bilirubin levels. 92 Because ethnic data is not always readily [...] 15-29 5 Kidney failure <15 (or dialysis) 93 CHOLESTEROL INTERPRETATION: Desirable: Less than 200 MG/DL Borderline-High Risk: 200-239 MG/DL High-Risk: 240 MG/DL and over 94 HDL INTERPRETATION: Undesirable: High Risk: Less than 40 MG/DL Desirable: Low Risk: Greater than 60 MG/DL 95 LDL INTERPRETATION: Low Risk Optimal Level: LDL Less than 100 MG/DL Near or Above Optimal: LDL 100-129 MG/DL Borderline High Risk: LDL 130-159 MG/DL High Risk: LDL 160-189 MG/DL Very High Risk: LDL Greater than 189 MG/DL 96 [address] 1 97 CHOLESTEROL INTERPRETATION: Desirable: Less than 200 MG/DL Borderline-High Risk: 200-239 MG/DL High-Risk: 240 MG/DL and over 98 HDL INTERPRETATION: Undesirable: High Risk: Less than 40 MG/DL Desirable: Low Risk: Greater than 60 MG/DL 99 LDL INTERPRETATION: Low Risk Optimal Level: LDL Less than 100 MG/DL Near or Above Optimal: LDL 100-129 MG/DL Borderline High Risk: LDL 130-159 MG/DL High Risk: LDL 160-189 MG/DL Very High Risk: LDL Greater than 189 MG/DL 100 FASTING PATIENT MAY HAVE RESULTS PER DOCTOR'S AUTHORIZATION. Questions regarding this report should be directed to your doctor. 101 Anion gap measurement may be of limited value in the presence of any alkalosis, especially in a combined acid base disorder. . 102 Note change in reference range as of 03/07/08. The change was based on recommendations from the [place] [employer]. 103 Please note change in reference range effective 07 . 104 A metabolite of Naproxen, O-desmethylnaproxen, has been shown to interfere with the Jenderickik-Bella method for measuring total bilirubin. Samples from patients who have taken Naproxen have shown spurious elevation in total bilirubin levels. 105 Because ethnic data is not always readily [...] 15-29 5 Kidney failure <15 (or dialysis) 106 CHOLESTEROL INTERPRETATION: Desirable: Less than 200 [...] Risk: LDL Greater than 189 MG/DL 109 * SERUM LEVELS OF PSA MEASURED USING THE JEANINE NANDO ACCESS HYBRITECH IMMUNOASSAY SHOULD NOT BE INTERPRETED ABSOLUTE EVIDENCE OF THE PRESENCE OR ABSENCE OF DISEASE. THE PSA VALUE SHOULD BE USED IN CONJUNCTION WITH OTHER PERTINENT CLINICAL DIAGNOSTIC PROCEDURES. 110 Anion gap measurement may be of limited value in the presence of any alkalosis, especially in a combined acid base disorder. . 111 Note change in reference range as of 03/07/08. The change was based on recommendations from the [place] [employer]. 112 Please note change in reference range effective 07 . 113 A metabolite of Naproxen, O-desmethylnaproxen, has been shown to interfere with the Jendrassik-Erin method for measuring total bilirubin. Samples from patients who have taken Naproxen have shown spurious elevation in total bilirubin levels. 114 Because ethnic data is not always readily [...] 15-29 5 Kidney failure <15 (or dialysis) 115 AKHIL VALUE=2.01 ( OF 06/23/07 Recommended INR for Patients on Oral Anticoagulants Prophylaxis 2.0 - 3.0 Treatment of thrombosis 2.0 - 3.0 Prevention of embolism 2.0 - 3.0 Prevention of embolism from prosthetic heart valves 2.5 - 3.5 116 PLEASE NOTE NEW REFERENCE RANGE EFFECTIVE 07. 117 Anion gap measurement may be of limited value in the presence of any alkalosis, especially in a combined acid base disorder. . 118 Please note change in reference range effective 07 . 119 Note change in reference range as of 03/07/08. The change was based on recommendations from the [place] [employer]. 120 CHOLESTEROL INTERPRETATION: Desirable: Less than 200 MG/DL Borderline-High Risk: 200-239 MG/DL High-Risk: 240 MG/DL and over 121 HDL INTERPRETATION: Undesirable: High Risk: Less than 40 MG/DL Desirable: Low Risk: Greater than 60 MG/DL 122 LDL INTERPRETATION: Low Risk Optimal Level: LDL Less than 100 MG/DL Near or Above Optimal: LDL 100-129 MG/DL Borderline High Risk: LDL 130-159 MG/DL High Risk: LDL 160-189 MG/DL Very High Risk: LDL Greater than 189 MG/DL 123 Classification: Desirable . 124 CALCULATED LDL APPROXIMATES THE VALUE OF A DIRECT LDL MEASUREMENT. Classification: Optimal Level . 125 PATIENT MAY HAVE RESULTS PER DOCTOR'S AUTHORIZATION. Questions regarding this report should be directed to your doctor. 126 Anion gap measurement may be of limited value in the presence of any alkalosis, especially in a combined acid base disorder. . 127 Classification: Borderline High . 128 CALCULATED LDL APPROXIMATES THE VALUE OF A DIRECT LDL MEASUREMENT. Classification: Borderline High . 129 * SERUM LEVELS OF PSA MEASURED USING THE [employer] ACCESS HYBRITECH IMMUNOASSAY SHOULD NOT BE INTERPRETED ABSOLUTE EVIDENCE OF THE PRESENCE OR ABSENCE OF DISEASE. THE PSA VALUE SHOULD BE USED IN CONJUNCTION WITH OTHER PERTINENT CLINICAL DIAGNOSTIC PROCEDURES. Procedures Date Code Description Status 08/14/201862738 Inject/Drain Joint/Bursa Major W/O US Completed 08/14/201821332 Inject/Drain Joint/Bursa Major W/O US Completed 05/05/201850884 Inject/Drain Joint/Bursa Major W/O US Completed 01/27/201869088 Inject/Drain Joint/Bursa Major W/O US Completed 11/28/2017 54204 EKG, Interpretation Only Completed 11/24/2017 35556 EKG, Interpretation Only Completed 11/22/2017 45935 Open TX Of Femoral FX,Promimal End,Neck Internal Completed Fixation 11/22/2017 62975 Open TX Of Femoral FX,Promimal End,Neck Internal Completed Fixation 11/09/2017 94651 EKG Tracing & Interpretation Completed 10/28/201729791 Inject/Drain Joint/Bursa Major W/O US Completed 07/29/201776795 Inject/Drain Joint/Bursa Major W/O US Completed 04/27/201726481 Inject/Drain Joint/Bursa Major W/O US Completed 01/24/201759052 Inject/Drain Joint/Bursa Major W/O US Completed 01/12/2017 39567 Removal Devitalization Tissue Wound Less Than Equal 20 Completed Square CM 01/05/2017 38137 Removal Devitalization Tissue Wound Less Than Equal 20 Completed Square CM 12/29/2016 12249 Removal Devitalization Tissue Wound Less Than Equal 20 Completed Square CM 10/27/201674535 Inject/Drain Joint/Bursa Major W/O US Completed 10/22/2016 70639 EKG Tracing & Interpretation Completed 07/28/201683913 Inject/Drain Joint/Bursa Major W/O US Completed 03/29/201608659 Inject/Drain Joint/Bursa Major W/O US Completed 12/26/201533927 Inject/Drain Joint/Bursa Major W/O US Completed 10/23/2015 51494 EKG Tracing & Interpretation Completed 09/25/2015 96028 Holter Monitoring 24 HR New Completed 09/24/2015 84697 Holter Monitoring 24 HR New Completed 09/24/2015 25612 Inject/Drain Joint/Bursa Major W/O US Completed 09/04/2015 12024 EKG Tracing & Interpretation Completed 09/02/2015 27400 Holter Monitoring 24 HR New Completed 09/01/2015 74440 Holter Monitoring 24 HR New Completed 08/03/2015 07686 EKG, Interpretation Only Completed 08/03/2015 80316 Inject/Drain Joint/Bursa Major W/O US Completed 07/22/2015 71511 ECHO Transthorasic Realtime 2D W Doppler & Color Flow Completed Hosp 07/22/2015 60291 ECHO Transthorasic Realtime 2D W Doppler & Color Flow Completed Hosp 06/16/2015 57410 Inject/Drain Joint/Bursa Major W/O US Completed 03/31/2015 69721 Inject/Drain Joint/Bursa Major W/O US Completed 11/04/2014 53455 Diffusing Capacity Completed 11/04/2014 77891 Plethysmography Determination Lung Volumes & Per Airway Completed Resist 11/04/2014 66781 Pulmonary Stress Test Simple Completed 03/01/2014 54223 ECHO Transthoracic, Real-Time 2D With Doppler And Color Completed Flow 02/28/2014 75511 EKG Tracing & Interpretation Completed 01/03/2013 47982 EKG Tracing & Interpretation Completed 12/21/2011 37990 Holter Monitor Review (24 hr)dr review & interp only Completed 12/15/2011 19282 Noninvasive Ear Or Pulse Oximetry For Oxygen Saturation Completed 08/25/2010 83899 Pulse Oximetry-Mutl Determ Completed 08/25/2010 42324 Pulmonary Function><Bronchodilator Completed 05/25/2010 93078 Noninvasive Ear Or Pulse Oximetry For Oxygen Saturation Completed 05/25/2010 64659 EKG Tracing & Interpretation Completed 10/22/2009 31027 Noninvasive Ear Or Pulse Oximetry For Oxygen Saturation Completed 02/20/2009 40643 EKG Tracing & Interpretation Completed 01/10/2008 65879 Pulse Oximetry-Mutl Determ Completed 01/10/2008 07244 EKG Tracing & Interpretation Completed 12/13/2007 71485 Pulmonary Function><Bronchodilator Completed 12/13/2007 08263 EKG Tracing & Interpretation Completed 07/24/2007 01731 Treadmill Interp/Report Only Completed 07/24/2007 32696 Treadmill Interp/Report Only Completed 07/24/2007 72133 Stress Test Supervsn W/Out I/R Completed 07/19/2007 03816 Pulse Oximetry-Mutl Determ Completed 07/19/2007 35364 EKG Tracing & Interpretation Completed 07/19/2007 17794 EKG Tracing & Interpretation Completed 03/01/2007 71553 EKG Tracing & Interpretation Completed 03/01/2007 23422 EKG Tracing & Interpretation Completed 03/06/2001 93331430 Colonoscopy Completed Encounters Type Date Location Provider Dx Diagnosis Office Visit 03/16/2018 [facility] Internal Pawel Hinojosa E11.9 Type 2 diabetes 9:20a Orquidea Herring M.D. 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 J44.9 Chronic obstructive pulmonary disease, unspecified I10 Essential (primary) hypertension Office Visit 11/28/2017 11:08a [facility] Pino Terry, R07.9 Chest pain, Assoc,rey PANDA unspecified Hospitalists J18.1 Lobar pneumonia, unspecified organism J44.9 Chronic obstructive pulmonary disease, unspecified S72.001A Fracture of unsp part of neck of right femur, init Office Visit 11/27/2017 8:16a [facility] Fiona S72.001A Fracture of Assoc,rey Harris DO unsp part of Hospitalists neck of right femur, init J44.9 Chronic obstructive pulmonary disease, unspecified I10 Essential (primary) hypertension I48.91 Unspecified atrial fibrillation Office Visit 11/26/2017 8:16a [facility] Fiona S72.001A Fracture of Assoc,rey Harris DO unsp part of Hospitalists neck of right femur, init J44.9 Chronic obstructive pulmonary disease, unspecified I10 Essential (primary) hypertension I48.91 Unspecified atrial fibrillation Office Visit 11/25/2017 8:15a [facility] Garo S72.001A Fracture of Assoc,rey Chavarria M.D. unsp part of Hospitalists neck of right femur, init J44.9 Chronic obstructive pulmonary disease, unspecified I10 Essential (primary) hypertension I48.91 Unspecified atrial fibrillation Office Visit 11/24/2017 8:14a [facility] S72.001A Fracture of Assoc,rey Chavarria M.D. unsp part of Hospitalists neck of right femur, init J44.9 Chronic obstructive pulmonary disease, unspecified I10 Essential (primary) hypertension I48.91 Unspecified atrial fibrillation Office Visit 11/22/2017 8:13a [facility] S72.001A Fracture of Assoc,pc Steven, DO unsp part of Hospitalists neck of right femur, init J44.9 Chronic obstructive pulmonary disease, unspecified I10 Essential (primary) hypertension I48.91 Unspecified atrial fibrillation Office Visit 11/21/2017 Miah Puentes Z01.810 Encounter for 9:27a Cardiology Ariel Ayala M.D. preprocedural [employer] cardiovascular examination S72.001A Fracture of unsp part of neck of right femur, init I25.10 Athscl heart disease of [place] coronary artery w/o ang pctrs I48.92 Unspecified atrial flutter Office Visit 11/21/2017 8:12a [facility] Fiona S72.001A Fracture of Assoc,pc Steven, DO unsp part of Hospitalists neck of right femur, init J44.9 Chronic obstructive pulmonary disease, unspecified I10 Essential (primary) hypertension I48.91 Unspecified atrial fibrillation Office Visit 11/20/2017 [facility] S[facility] Fracture of Assoc,rey Chavarria M.D. unsp part of Hospitalists neck of right femur, init J44.9 Chronic obstructive pulmonary disease, unspecified I10 Essential (primary) hypertension I48.91 Unspecified atrial fibrillation Office Visit 11/20/2017 9:44a [facility] Rema Gonzalez, M25.551 Pain in right Of C.M.A. M.D. hip W19.xxxA Unspecified fall, initial encounter S72.041A Disp fx of base of neck of right femur, init for clos fx Office Visit 11/19/2017 8:10a [facility] Giana Judd, S72.001A Fracture of Assoc,pc N.P. unsp part of Hospitalists neck of right femur, init J44.9 Chronic obstructive pulmonary disease, unspecified I10 Essential (primary) hypertension I48.91 Unspecified atrial fibrillation Office Visit 11/09/2017 9:30a [facility] Rocael Puentes I48.2 Chronic atrial Of Cristina Ayala M.D. fibrillation I10 Essential (primary) hypertension Office Visit 05/30/2017 2:40p [facility] Internal Pawel Hinojosa J20.9 Acute bronchitis, Orquidea Herring M.D. unspecified [place] Office Visit 04/28/2017 10:00a [facility] Internal Pawel Hinojosa R30.0 Dysuria Orquidea Herring M.D. [place] G31.84 Mild cognitive impairment, so stated I10 Essential (primary) hypertension E11.9 Type 2 diabetes mellitus without complications E78.00 Pure hypercholesterolemia, unspecified Office Visit 04/06/2017 9:00a W[facility] Care Vinh Ramirez S41.112A Laceration w/o [facility] [place] MD Antonette foreign body of left upper arm, init encntr Office Visit 03/30/2017 10:15a Wound Care Vinh Ramirez S41.112A Laceration w/o [facility] [place] MD Antonette foreign body of left upper arm, init encntr Office Visit 03/23/2017 9:30a Wound Care Vinh Ramirez S41.112A Laceration w/o [facility] [place] MD Antonette foreign body of left upper arm, init encntr W06.xxxA Fall from bed, initial encounter Office Visit 01/26/2017 Wound Care Vinh Ramirez S81.812A Laceration without 9:00a [facility] [place] MD Antonette foreign body, left lower leg, init encntr Office Visit 12/29/2016 Wound Cinda Ramirez S81.812A Laceration without 9:15a [facility] [place] MD Antonette foreign body, left lower leg, init encntr Office Visit 12/24/2016 Cristina Hinojosa E11.9 Type 2 diabetes 9:40a Orquidea Herring M.D. mellitus without [place] complications I10 Essential (primary) hypertension I48.2 Chronic atrial fibrillation J44.9 Chronic obstructive pulmonary disease, unspecified Office Visit 12/08/2016 [facility] Internal Pawel Hinojosa S81.802A Unspecified open 11:00a Orquidea Herring M.D. wound, left lower [place] leg, initial encounter Office Visit 10/22/2016 Miah uPentes I48.2 Chronic atrial 10:00a Cardiology Ariel Ayala M.D. fibrillation [facility] I10 Essential (primary) hypertension I25.10 Athscl heart disease of [place] coronary artery w/o ang pctrs Office Visit 09/23/2016 10:40a [facility] Internal Pawel Hinojosa E11.9 Type 2 diabetes Orquidea Herring M.D. mellitus without [place] complications Office Visit 05/24/2016 10:00a [facility] Internal Pawel Hinojosa E11.9 Type 2 diabetes Orquidea Herring M.D. mellitus without [place] complications I10 Essential (primary) hypertension I48.2 Chronic atrial fibrillation J44.9 Chronic obstructive pulmonary disease, unspecified Office Visit 02/18/2016 9:00a [facility] Internal Pawel Hinojosa E11.9 Type 2 diabetes Orquidea Herring M.D. mellitus without [place] complications Office Visit 10/23/2015 10:45a [facility] Ayana Puentes I10 Essential (primary) Of Cristina Ayala M.D. hypertension I48.2 Chronic atrial fibrillation Office Visit 10/22/2015 10:00a [facility] Internal Pawel Hinojosa R60.0 Localized edema Orquidea Herring M.D. [place] I10 Essential (primary) hypertension I48.2 Chronic atrial fibrillation J44.9 Chronic obstructive pulmonary disease, unspecified Office Visit 09/30/2015 11:00a [facility] Internal Pawel Hinojosa L03.114 Cellulitis of Orquidea Herring M.D. left upper limb [place] R60.0 Localized edema I48.91 Unspecified atrial fibrillation Office Visit 09/19/2015 9:40a [facility] Internal Pawel Hinojosa R60.0 Localized edema Orquidea Herring M.D. [place] I48.91 Unspecified atrial fibrillation Office Visit 09/04/2015 [facility] Rocael Puentes R94.31 Abnormal 12:00p Cardiology Ariel Ayala M.D. electrocardiogram [facility] [ECG] [EKG] I48.91 Unspecified atrial fibrillation Office Visit 08/21/2015 3:20p [facility] Internal Pawel E. I48.91 Unspecified atrial Medicine - Vinicius Herring fibrillation [place] R60.0 Localized edema J44.1 Chronic obstructive pulmonary disease w (acute) exacerbation Office Visit 08/12/2015 10:00a [facility] Internal Pawel E. I48.91 Unspecified atrial Medicine - Vinicius Herring fibrillation [place] J44.1 Chronic obstructive pulmonary disease w (acute) exacerbation R73.01 Impaired fasting glucose R10.84 Generalized abdominal pain I10 Essential (primary) hypertension Office Visit 08/05/2015 [facility] Orlin R65.10 Sirs of 11:17a rey Garrison M.D. non-infectious Hospitalists origin w/o acute organ dysfunction J43.1 Panlobular emphysema E86.1 Hypovolemia R53.1 Weakness Office Visit 08/04/2015 [facility] Orlin R65.10 Sirs of 11:08a rey Garrison M.D. non-infectious Hospitalists origin w/o acute organ dysfunction J43.1 Panlobular emphysema E86.1 Hypovolemia R53.1 Weakness Office Visit 08/03/2015 Orthopedic Juaquin Chand, M25.061 Hemarthrosis, 7:00a [facility] [place] PANDA right knee Office Visit 08/03/2015 [facility] Orlin R65.10 Sirs of 11:07a rey Garrison M.D. non-infectious Hospitalists origin w/o acute organ dysfunction J43.1 Panlobular emphysema E86.1 Hypovolemia R53.1 Weakness Office Visit 08/01/2015 11:06a [facility] Medardo Barr R53.1 Weakness Assdevin Vinicius GARCIA Hospitalists E86.1 Hypovolemia R65.10 Sirs of non-infectious origin w/o acute organ dysfunction J43.1 Panlobular emphysema Office Visit 07/27/2015 11:19a [facility] Nereida Diego, R53.1 Weakness Ass Hospitalists D.O. J44.1 Chronic obstructive pulmonary disease w (acute) exacerbation R06.09 Other forms of dyspnea I48.91 Unspecified atrial fibrillation Office Visit 07/26/2015 11:18a [facility] Nereida Diego, R53.1 Weakness Assoc, Hospitalists Justin J44.1 Chronic obstructive pulmonary disease w (acute) exacerbation R06.09 Other forms of dyspnea I48.91 Unspecified atrial fibrillation Office Visit 07/25/2015 11:18a [facility] Juhi Hohn, R53.1 Weakness Assoc, Hospitalists Vinicius J44.1 Chronic obstructive pulmonary disease w (acute) exacerbation R06.09 Other forms of dyspnea I48.91 Unspecified atrial fibrillation Office Visit 07/24/2015 11:18a [facility] Juhi Hohn, R53.1 Weakness Assoc, Hospitalists MAmol J44.1 Chronic obstructive pulmonary disease w (acute) exacerbation R06.09 Other forms of dyspnea I48.91 Unspecified atrial fibrillation Office Visit 07/24/2015 10:36a Pulmonology And Darya R06.02 Shortness of Sleep Services Of MD Katie breath [facility] J44.1 Chronic obstructive pulmonary disease w (acute) exacerbation I48.91 Unspecified atrial fibrillation Office Visit 07/23/2015 10:32a Pulmonology And Darya R06.02 Shortness of Sleep Services Of MD Katie breath [facility] J44.1 Chronic obstructive pulmonary disease w (acute) exacerbation I48.91 Unspecified atrial fibrillation Office Visit 07/23/2015 11:17a [facility] Juhi Pitts, R53.1 Weakness Assdevin, Hospitalists Vinicius R06.09 Other forms of dyspnea I48.91 Unspecified atrial fibrillation I10 Essential (primary) hypertension Office Visit 07/22/2015 [facility] Rocael Puentes I48.2 Chronic atrial 2:12p Of Cristina Ayala M.D. fibrillation Office Visit 07/22/2015 [facility] Juhi Hohn, R53.1 Weakness 11:16a Assrey beltran M.D. Hospitalists R06.09 Other forms of dyspnea I48.91 Unspecified atrial fibrillation I10 Essential (primary) hypertension Office Visit 07/21/2015 11:16a [facility] Jamie Nj M.D. 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 Leg 719.06 Effusion Joint Lower Leg 719.46 Pain Joint Lower Leg Office Visit 02/05/2015 10:20a [facility] Internal Pawel Hinojosa 496 COPD Airway Orquidea Herring M.D. Obstruction [place] Chronic Not Class Elsewhere Office Visit 11/26/2014 9:40a [facility] Internal Pawel Hinojosa 782.3 Edema Vinicius Gold 401.1 Hypertension Benign 496 COPD Airway Obstruction Chronic Not Class Elsewhere 272.0 Hypercholesterolemia Pure 790.21 Impaired Fasting Glucose Office Visit 11/13/2014 8:30a Pulmonology And Darya 492.8 Emphysema Other Sleep Services Of MD Katie [facility] 496 COPD Airway Obstruction Chronic Not Class Elsewhere 518.83 Respiratory Failure Chronic Office Visit 07/09/2014 10:20a [facility] Internal Pawel Hinojosa 780.93 Memory Loss Vinicius Gold 401.1 Hypertension Benign 496 COPD Airway Obstruction Chronic Not Class Elsewhere Office Visit 06/24/2014 10:15a Pulmonology And Darya 496 COPD Airway Sleep Services Of MD Katie Obstruction [facility] Chronic Not Class Elsewhere 786.05 Shortness Of Breath 780.59 Sleep Disturbances Other Office Visit 02/28/2014 9:30a [facility] Rocael Puentes 427.31 Atrial Of Cristina Ayala M.D. Fibrillation 496 COPD Airway Obstruction Chronic Not Class Elsewhere Office Visit 12/13/2013 11:40a [facility] Internal Pawel Hinojosa 782.3 Vinicius Pérez Office Visit 08/31/2013 10:00a [facility] Internal Pawel Hinojosa 466.0 Bronchitis Acute Medicine Lowell Herring M.D. 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 Fibrillation 496 COPD Airway Obstruction Chronic Not Class Elsewhere 401.9 Hypertension Unspec Office Visit 06/05/2012 10:40a [facility] Internal Pawel EDennis Mathew COPD Airway Orquidea Herring M.D. Obstruction [place] Chronic Not Class Elsewhere 401.1 Hypertension Benign Office Visit 04/05/2012 2:00p [facility] Internal Pawel Mathew COPD Airway Orquidea Herring M.D. Obstruction [place] Chronic Not Class Elsewhere Office Visit 03/17/2012 1:30p [facility] Internal Sri Pope 496 COPD Airway Medicine - N.PDennis Obstruction [place] Chronic Not Class Elsewhere 466.0 Bronchitis Acute Office Visit 03/10/2012 10:00a [facility] Internal Sri Pope 466.0 Bronchitis Acute Medicine - N.P. [place] 496 COPD Airway Obstruction Chronic Not Class Elsewhere Office Visit 01/03/2012 11:40a [facility] Internal Pawel Mathew COPD Airway Orquidea eHrring M.D. Obstruction [place] Chronic Not Class Elsewhere Office Visit 12/24/2011 10:30a [facility] Internal Sri Pope 49Tracee COPD Airway Medicine - N.P. Obstruction [place] Chronic Not Class Elsewhere Office Visit 12/15/2011 10:00a [facility] Internal Pawel Mathew COPD Airway Orquidea Herring M.D. Obstruction [place] Chronic Not Class Elsewhere 401.1 Hypertension Benign Office Visit 12/03/2011 9:00a [facility] Internal Pawel EDennis Mathew COPD Airway Orquidea Herring M.D. Obstruction [place] Chronic Not Class Elsewhere 401.1 Hypertension Benign 272.0 Hypercholesterolemia Pure 790.21 Impaired Fasting Glucose 427.31 Atrial Fibrillation Office Visit 05/26/2011 9:00a DO Not Use [employer] Pawel EDennis 496 COPD Airway AT [place]haamanda Herring M.D. Obstruction Chronic Not Class Elsewhere 401.1 Hypertension Benign 790.21 Impaired Fasting Glucose 272.0 Hypercholesterolemia Pure Office Visit 08/25/2010 9:40a DO Not Use [employer] Pawel E. 496 COPD Airway AT Suzy Herring M.D. Obstruction Chronic Not Class Elsewhere Office Visit 05/25/2010 9:00a DO Not Use [employer] Pawel E. 401.1 Hypertension Benign AT Suzy Herring M.D. 496 COPD Airway Obstruction Chronic Not Class Elsewhere 272.0 Hypercholesterolemia Pure V70.0 Examination General Medical Routine AT Health Care Facility Office Visit 11/19/2009 DO Not Use [employer] Builder Pawel E. 272.0 Hypercholesterolemia Pure 10:20a AT Suzy Herring M.D. 496 COPD Airway Obstruction Chronic Not Class Elsewhere 401.1 Hypertension Benign Office Visit 10/22/2009 9:20a DO Not Use [employer] Pawel E. 466.0 Bronchitis Acute AT Suzy Herring M.D. 496 COPD Airway Obstruction Chronic Not Class Elsewhere 272.0 Hypercholesterolemia Pure Office Visit 05/21/2009 11:00a DO Not Use [employer] Pawel E. 496 COPD Airway AT Suzy Herring M.D. Obstruction Chronic Not Class Elsewhere 401.1 Hypertension Benign 272.0 Hypercholesterolemia Pure Office Visit 03/05/2009 11:00a [facility] Pawel E. 782.3 Edema Assoc AT Vinicius Herring [facility] Office Visit 02/20/2009 11:30a [facility] Pawel E. 496 COPD Airway Assoc AT Vinicius Herring Obstruction [facility] Chronic Not Class Elsewhere 782.3 Edema 401.1 Hypertension Benign Office Visit 11/20/2008 10:45a [facility] Pawel E. 496 COPD Airway Assoc AT Vinicius Herring Obstruction [facility] Chronic Not Class Elsewhere Office Visit 10/21/2008 10:45a [facility] Pawel E. 466.0 Bronchitis Acute Assoc AT Vinicius Herring [facility] Office Visit 06/05/2008 10:00a [facility] Pawel E. 786.05 Shortness Of Assoc AT Vinicius Herring Breath [facility] 496 COPD Airway Obstruction Chronic Not Class Elsewhere Office Visit 01/10/2008 11:15a [facility] Pawel E. 785.0 Tachycardia Unspec Assoc AT Vinicius Herring [facility] 272.0 Hypercholesterolemia Pure Office Visit 12/13/2007 [facility] Pawel E. 496 COPD Airway Obstruction 2:00p Assoc AT Vinicius Herring Chronic Not Class [facility] Office Visit 11/22/2007 [facility] Pawel E. 272.0 Hypercholesterolemia Pure 10:00a Assoc AT Vinicius Herring [facility] 401.1 Hypertension Benign Office Visit 09/12/2007 [facility] Pawel E. 272.0 Hypercholesterolemia Pure 12:37p Assoc AT NevaehVinicius suazo [facility] 401.1 Hypertension Benign 427.1 Paroxysmal Ventricular Tachycardia Office Visit 09/12/2007 [facility] Pawel E. 272.0 Hypercholesterolemia Pure 9:45a Assoc AT Vinicius Herring [facility] 401.1 Hypertension Benign 427.1 Paroxysmal Ventricular Tachycardia Office Visit 08/01/2007 1:45p [facility] Pawel E. 427.1 Paroxysmal Assoc AT NevaehVinicius suazo Ventricular [facility] Tachycardia Office Visit 07/19/2007 9:30a [facility] Pawel E. 786.05 Shortness Of Assoc AT Vinicius Herring Breath [facility] Office Visit 05/24/2007 9:45a [facility] Pawel E. 496 COPD Airway Assoc AT Vinicius Herring Obstruction [facility] Chronic Not Class Elsewhere 401.1 Hypertension Benign 272.0 Hypercholesterolemia Pure Office Visit 03/01/2007 2:30p [facility] Pawel E. 401.1 Hypertension Benign Assoc AT Nevaeh, Dhaval [facility] 496 COPD Airway Obstruction Chronic Not Class Elsewhere 272.0 Hypercholesterolemia Pure 366.9 Cataract Unspec Office Visit 02/16/2007 1:30p [facility] Pawel E. 401.1 Hypertension Benign Assoc AT Nevaeh, Dhaval [facility] 496 COPD Airway Obstruction Chronic Not Class Elsewhere 272.0 Hypercholesterolemia Pure Plan of Treatment Future Appointment(s):2018 9:45 am - Rema Gonzalez M.D. at [facility]/15/2018 9:20 am - Pawel Herring M.D. at [facility] Internal Medicine - Gkahmpioo34/04/2019 10:20 am - Pawel Herring M.D. at [facility] Internal Medicine - Rplpnrsge39/28/2019 - Rema Gonzalez M.D.M25.562 Pain in left kneeFollow up:Follow up: As [id number] Pain in right kneeM25.461 Effusion, right kneeM25.462 Effusion, left kneeM17.0 Bilateral primary osteoarthritis of knee
[2018-08-15 10:01] VITALS: BP 162/76
--- NOTE | 2018-08-15 10:08 | UC ---
Truncal Trauma HPI - HPI Summary HPI Summary: 87 yo male presents s/p fall. He tells me that he was walking into [employer] with his when he slipped and fell onto his left knee, forearm, and ribs. Did not hit his head or have LOC. He was able to get to his feet. Came directly to urgent care. Currently he is only having pain in his left knee and left ribs. Hurts to take a deep breath. He does take eliquis daily. Denies headache, dizziness, numbness, tingling, increased SOB. - History Of Current Complaint Chief Complaint: UCUpperExtremity Stated Complaint: KNEE,ARM,RIB INJURY Time Seen by Provider: 08/15/18 10:08 Hx Obtained From: Patient Severity Initially: Moderate Severity Currently: Moderate Pain Intensity: 9 Pain Scale Used: 0-10 Numeric - Allergies/Home Medications Allergies/Adverse Reactions: Allergies Allergy/AdvReac Type Severity Reaction Status Date / Time No Known Allergies Allergy Verified 08/15/18 10:01 PMH/Surg Hx/FS Hx/Imm Hx Endocrine History: Diabetes, Dyslipidemia Cardiovascular History: Hypertension, Atrial Fibrillation - Surgical History Surgical History: Yes Surgery Procedure, Year, and Place: lung surgery; benign cyst, cholecystectomy, hernia repair, appendectomy, 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 - Family History Known Family History: Positive: Diabetes Negative: Cardiac Disease, Hypertension - Social History Lives: With Family Alcohol Use: Daily Substance Use Type: None Smoking Status (MU): Former Smoker Type: Cigarettes Length of Time of Smoking/Using Tobacco: 40+ YEARS OF SMOKING When Did the Patient Quit Smoking/Using Tobacco: 20 yrs - Immunization History Most Recent Influenza Vaccination: 2016 fall Most Recent Tetanus Shot: unknown Most Recent Pneumonia Vaccination: 2014 Hx Tetanus, Diphtheria Vaccination: Yes - 2010 Vaccination Up to Date: Yes Review of Systems All Other Systems Reviewed And Are Negative: Yes Constitutional: Positive: Negative Skin: Positive: Other - Abrasion left knee and left elbow Respiratory: Positive: Negative Cardiovascular: Positive: Negative Neurovascular: Positive: Negative Neurological: Positive: Negative Psychological: Positive: Negative Physical Exam - Summary Physical Exam Summary: GENERAL: NAD. WDWN. No pain distress. SKIN: 2.0cm linear superficial abrasion to left elbow. Superficial skin tear with abrasion to left knee. CHEST: Decreased breath sounds throughout. No accessory muscle use. Breathing comfortably and in no distress. CV: Pulses intact popliteal, PT, and DP. Cap refill <2seconds MSK: LEFT KNEE: FROM without pain. Mild TTP about patella. Mild edema abot knee. Strength 5/5. No obvious bony deformities. No patella apprehension. Negative Figueroa, A/P drawer, Pantera, and varus/valgus stress. LEFT ELBOW: Mild TTP about whole elbow. FROM without pain including supination and pronation. LEFT RIBS: Moderate TTP ~8-9ths anterolateral ribs. NEURO: Alert. Sensations intact and symmetric B/L LEs PSYCH: Age appropriate behavior. Triage Information Reviewed: Yes Vital Signs: Initial Vital Signs Temp 98.1 F 08/15/18 09:56 Pulse 70 08/15/18 09:56 Resp 20 08/15/18 09:56 BP 162/76 08/15/18 09:56 Pulse Ox 93 08/15/18 09:56 Vital Signs Reviewed: Yes Truncal Trauma Course/Dx - Course Course Of Treatment: CXR: IMPRESSION: 1. PROBABLE NONDISPLACED FRACTURE OF THE LEFT LATERAL NINTH RIB. 2. 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 PLEURAL EFFUSION OR PNEUMOTHORAX. Knee XR: IMPRESSION: SMALL JOINT EFFUSION, NO FRACTURE IS SEEN. IF THE PATIENT'S SYMPTOMS PERSIST,. RECOMMEND FOLLOW-UP IMAGING. Elbow XR: IMPRESSION: 1. OSTEOARTHRITIS. 2. WELL CORTICATED BONE FRAGMENTS ALONG THE PROXIMAL ULNA WHICH MAY REFLECT REMOTE. INJURY. 3. NO ACUTE OSSEOUS INJURY. IF SYMPTOMS PERSIST, RECOMMEND REPEAT IMAGING. Discussed results with pt. Abrasions were cleansed and bandaged with telfa. Advised to change dressings daily until well healed. Will try him with a lidoderm patch for his rib fracture and pain. Advised to f/u with PCP within 1 week for a recheck. - Differential Dx/Diagnosis Provider Diagnosis: Rib fracture, Fall, Left knee pain, Left elbow pain, Abrasion Discharge - Sign-Out/Discharge Documenting (check all that apply): Patient Departure All imaging exams completed and their final reports reviewed: Yes - Discharge Plan Condition: Stable Disposition: HOME Prescriptions: Lidocaine PATCH 5%* [Lidoderm 5% Patch*] 1 patch TRANSDERM DAILY PRN #1 box PRN Reason: Pain Patient Education Materials: Rib Fracture (ED), Abrasion (ED) Referrals: Pawel Herring MD [Primary Care Provider] - 2 Days Additional Instructions: If you develop a fever, shortness of breath, chest pain, new or worsening symptoms - please call your PCP or go to the ED. Your blood pressure was high at todays visit. Please see your primary provider within 4 weeks for recheck and re-evaluation. 1) Please follow up with your Primary doctor later this week for a recheck - Billing Disposition and Condition Condition: STABLE Disposition: Home
== END 2018-08-15 11:42 | disposition home or self-care (01) ==
LOC: UCEAST 09:52
DX: S22.39XA Fracture of one rib, unspecified side, initial encounter for closed fracture (principal); S50.312A Abrasion of left elbow, initial encounter; S80.212A Abrasion, left knee, initial encounter; M25.562 Pain in left knee; M25.522 Pain in left elbow; E11.9 Type 2 diabetes mellitus without complications; I10 Essential (primary) hypertension; Z87.891 Personal history of nicotine dependence; W01.0XXA Fall on same level from slipping, tripping and stumbling without subsequent striking against object, initial encounter; Y93.01 Activity, walking, marching and hiking; Y92.9 Unspecified place or not applicable
CPT/HCPCS: 99212; G0463

== ENCOUNTER 2018-11-10 07:31 | Emergency (ER) | payer MEDICARE ==
[2018-11-10] MEDS ORDERED: Albuterol/Ipratropium NEB.SOL* Albuterol 2.5 MG/Ipratropium 0.5 MG 3 ML INH ONE (07:35)
--- NOTE | 2018-11-10 07:45 | UC ---
General HPI - HPI Summary HPI Summary: Pleasant 87 yo gentleman presents accompanied by spouse c/o trouble breathing last 3 days, progressively worse. + cough. No pain in chest perse but hurts to cough. Has oxygen at home, 2 lnc, with O2 sat usually 93% per pt. No fever / chills. Appetite fair. No GI or issues. No new p/d/w. Takes metformin. No rash. Does have a sore on the bottom of left foot, has been present for several days, hurts a little. + swelling L leg, but reports that this is not unusual for him. No recent med changes, takes digoxin. Hx copd, hx atrial fib, takes blood thinners. 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 - Allergy/Home Medications Allergies/Adverse Reactions: Allergies Allergy/AdvReac Type Severity Reaction Status Date / Time No Known Allergies Allergy Verified 11/10/18 08:48 Home Medications: Home Medications guaiFENesin [Mucinex] 600 mg PO Q12HR 11/10/18 [History] PMH/Surg Hx/FS Hx/Imm Hx Previously Healthy: No - Surgical History Surgical History: Yes Surgery Procedure, Year, and Place: RIGHT HIP PATIENT UNSURE - Family History Known Family History: Positive: Diabetes Negative: Cardiac Disease, Hypertension - Social History Alcohol Use: Daily Substance Use Type: None Smoking Status (MU): Former Smoker Type: Cigarettes Length of Time of Smoking/Using Tobacco: 40+ YEARS OF SMOKING When Did the Patient Quit Smoking/Using Tobacco: 20 yrs - Immunization History Most Recent Influenza Vaccination: 2016 fall Most Recent Tetanus Shot: unknown Most Recent Pneumonia Vaccination: 2013 Hx Tetanus, Diphtheria Vaccination: Yes - 2010 Vaccination Up to Date: Yes Review of Systems All Other Systems Reviewed And Are Negative: Yes Constitutional: Positive: Fatigue Skin: Positive: Bruising Eyes: Positive: Negative ENT: Positive: Sinus Congestion Respiratory: Positive: Cough Cardiovascular: Positive: Other - see hpi Gastrointestinal: Positive: Other - see hpi Genitourinary: Positive: Other - see hpi Motor: Positive: Other - see hpi Neurovascular: Positive: Other Musculoskeletal: Positive: Other: - see hpi Neurological: Positive: Other - see hpi Psychological: Positive: Negative Is Patient Immunocompromised?: No Physical Exam Triage Information Reviewed: Yes Appearance: Thin, Other: - sitting up, conversing easily and in full sentances. Looks tired. Vital Signs Reviewed: Yes Eye Exam: Normal - grossly nonurgent ENT: Positive: Pharyngeal erythema - mild post redness. MM a little dry. trachea midline, TM dull Neck exam: Normal - + djd, grossly normal for age Respiratory Exam: Other - Rhonchi bilat, however, particularly prominent in R base. Occas wheeze bilat. Cardiovascular Exam: Other - HR irreg reg, correl with R rad pulse. Abdominal Exam: Normal - grossly benign, soft, sitting up Musculoskeletal Exam: Other - BLE + venous insuff changes, hemosiderosis. Both feet warm to touch. RLE + edema, without ernie homans. There is a sore medial plantar foot,+ thick eschar. DP faintly palpable Neurological Exam: Normal - grossly nonfocal, detailed not done Psychological Exam: Normal - conversing easily and appropriately Skin Exam: Normal - no visible or reported rash. nondiaphoretic. Course/Dx - Course Course Of Treatment: Duoneb x 1 - slighty not much better. EKG reviewed, A fib, similar baseline appearance c/w previous in [employer]. Infl neg a/b Strep neg REviewed coa / tx plan with pt and . I highly recommend ED evaluation / tx. They are disappointed but express understanding and agreement. EMS offered but they decline. Spouse will drive. Questions as posed answered to the best or my abiltiy. CXR here cancelled - will be done in ED. - Diagnoses Provider Diagnosis: Shortness of breath Discharge - Sign-Out/Discharge Documenting (check all that apply): Patient Departure All imaging exams completed and their final reports reviewed: No Studies - Discharge Plan Condition: Guarded Disposition: HOME-RECOMMEND TO ED Patient Education Materials: Dyspnea (ED) Referrals: Pawel Herring MD [Primary Care Provider] - Additional Instructions: Please go directly to the Emergency Department. Stop and call 911 for any problems in the meantime. - Billing Disposition and Condition Condition: GUARDED Disposition: Home-Recommend to ED
[2018-11-10 07:46] VITALS: BP 100/88
[2018-11-10 08:07] LABS: Influenza A Molecular NEGATIVE (Negative); Influenza B Molecular NEGATIVE (Negative)
== END 2018-11-10 08:14 | disposition home health service (06) ==
LOC: UCEAST 07:31
DX: R06.02 Shortness of breath (principal); R53.83 Other fatigue; R09.81 Nasal congestion; R05 Cough; R60.0 Localized edema; L98.9 Disorder of the skin and subcutaneous tissue, unspecified; I48.91 Unspecified atrial fibrillation; Z79.01 Long term (current) use of anticoagulants; J44.9 Chronic obstructive pulmonary disease, unspecified; Z99.81 Dependence on supplemental oxygen; Z87.891 Personal history of nicotine dependence
CPT/HCPCS: 87651; 99212; G0463

== ENCOUNTER 2018-11-10 08:33 | Emergency (ER) | payer MEDICARE ==
--- NOTE | 2018-11-10 08:47 | ED ---
Shortness of Breath - HPI Summary HPI Summary: Pt. is an 87 y.o male who presents to the ER for SOB and cough over the past week. Past medical history of COPD, A fibrillation, diabetes. Patient denies chest pain. He notes shortness of breath at rest. He does not wear home oxygen. Denies associated symptoms of fever, chills, abdominal pain, vomiting, diarrhea, leg swelling. Symptoms are moderate in severity. Activity makes symptoms worse. Nothing makes symptoms better. - History of Current Complaint Chief Complaint: EDUpperRespComplaint Time Seen by Provider: 11/10/18 08:45 Hx Obtained From: Patient - Allergy/Home Medications Allergies/Adverse Reactions: Allergies Allergy/AdvReac Type Severity Reaction Status Date / Time No Known Allergies Allergy Verified 11/10/18 08:48 PMH/Surg Hx/FS Hx/Imm Hx Previously Healthy: Yes Endocrine/Hematology History: Reports: Hx Diabetes - on metformin Denies: Hx Thyroid Disease Cardiovascular History: Reports: Hx Congestive Heart Failure, Hx Hypercholesterolemia, Hx Hypertension Respiratory History: Reports: Hx Chronic Obstructive Pulmonary Disease (COPD) Denies: Hx Asthma GI History: Reports: Hx Gastrointestinal Bleed Denies: Hx Ulcer History: Denies: Hx Renal Disease Comment Only: Other Problems/Disorders - hx admission for uti Musculoskeletal History: Reports: Hx Arthritis, Hx Back Problems Sensory History: Reports: Hx Contacts or Glasses, Hx Vision Problem, Hx Deafness , Hx Hearing Aid, Hx Hearing Problem Opthamlomology History: Reports: Hx Contacts or Glasses, Hx Vision Problem Neurological History: Denies: Other Neuro Impairments/Disorders - confusion - Surgical History Surgery Procedure, Year, and Place: RIGHT HIP PATIENT UNSURE Hx Anesthesia Reactions: No Infectious Disease History: No Infectious Disease History: Denies: Hx Clostridium Difficile, Hx Hepatitis, Hx Human Immunodeficiency Virus (HIV), Hx of Known/Suspected MRSA, Hx Shingles, Hx Tuberculosis, Hx Known/ Suspected VRE, Hx Known/Suspected VRSA, History Other Infectious Disease, Traveled Outside the [place] in Last 30 Days - Family History Known Family History: Positive: Diabetes Negative: Cardiac Disease, Hypertension - Social History Occupation: Retired Lives: With Family Alcohol Use: Daily Substance Use Type: Reports: None Hx Tobacco Use: No Smoking Status (MU): Former Smoker Type: Cigarettes Length of Time of Smoking/Using Tobacco: 40+ YEARS OF SMOKING Review of Systems Constitutional: Negative Negative: Fever, Chills Eyes: Negative ENT: Negative Cardiovascular: Negative Negative: Palpitations, Chest Pain Positive: Shortness Of Breath, Cough Gastrointestinal: Negative Negative: Abdominal Pain, Vomiting, Diarrhea Skin: Negative Neurological: Negative All Other Systems Reviewed And Are Negative: Yes Physical Exam Triage Information Reviewed: Yes Vital Signs On Initial Exam: Initial Vitals Temp Pulse Resp BP Pulse Ox 98.9 F 71 20 127/82 94 11/10/18 08:35 11/10/18 08:35 11/10/18 08:35 11/10/18 08:35 11/10/18 08:35 Vital Signs Reviewed: Yes Appearance: Positive: Well-Appearing - Pt. sitting up in bed in NAD. present. Skin: Positive: Warm, Dry Head/Face: Positive: Normal Head/Face Inspection Eyes: Positive: Normal, EOMI, ANGEL LUIS Neck: Positive: Supple, Nontender Respiratory/Lung Sounds: Positive: Other - Diminished breath sounds throughout with expiratory wheeze. No accessory muscle use. Cardiovascular: Positive: IRR Abdomen Description: Positive: Nontender, Soft. Negative: CVA Tenderness (R), CVA Tenderness (L) Musculoskeletal: Positive: Normal, Strength/ROM Intact Neurological: Positive: Normal, CN Intact II-III Psychiatric: Positive: Affect/Mood Appropriate Diagnostics - Vital Signs Vital Signs Temp Pulse Resp BP Pulse Ox 11/10/18 08:35 98.9 F 71 20 127/82 94 - Laboratory Result Diagrams: 11/10/18 08:58 11/10/18 08:58 Lab Statement: Any lab studies that have been ordered have been reviewed, and results considered in the medical decision making process. Course/Dx - Course Course Of Treatment: Patient presenting with worsening shortness of breath and cough with COPD. He is afebrile. Oxygen saturation is 94% room air which is low normal. Patient was started on a albuterol treatment and given IV Solu- Medrol. EKG done at 0850 shows atrial fibrillation at a rate of 78 bpm, right axis deviation, no ST elevation or depression, similar to prior tracings. Labs show normal WBC. BMP minimally elevated, suspect from age. Negative troponin. Chest x-ray is negative for infiltrate or effusion, reading per radiology. On reexamination patient now has more wheezing and is moving more air, we will give a DuoNeb treatment. After DuoNeb treatment wheezing has totally cleared and patient has good inspiratory and expiratory breath sounds. He was able to ambulate and oxygen stayed above 90. Patient is requesting to be discharged home with his . He states he is feeling much better and does not want to stay in the hospital. Will started on prednisone and doxycycline. Advised to use home nebulizer every 4 hours for next few days. To see family doctor Tuesday for follow-up. Patient will return to the ER symptoms change or worsen. - Diagnoses Differential Diagnosis/HQI/PQRI: Positive: Airway Obstruction, CHF, COPD Exacerbation, NV, Pneumonia, Pneumothorax, Pulmonary Embolism, Pulmonary Edema Provider Diagnoses: COPD exacerbation Discharge - Sign-Out/Discharge Documenting (check all that apply): Patient Departure Patient Received Moderate/Deep Sedation with Procedure: No - Discharge Plan Condition: Improved Disposition: HOME Prescriptions: DOXYcycline CAP(*) [DOXYcycline 100MG CAP(*)] 100 mg PO BID #20 cap predniSONE TAB* [Deltasone 20 MG TAB*] 40 mg PO DAILY #10 tab Patient Education Materials: COPD (Chronic Obstructive Pulmonary Disease) (ED) Referrals: Pawel Herring MD [Primary Care Provider] - Additional Instructions: Follow up with PCP on Tuesday Take medication as directed Use nebulizer every 6 hours Return to ER if symptoms change or worsen - Billing Disposition and Condition Condition: IMPROVED Disposition: Home
[2018-11-10] MEDS ORDERED: methylPREDNISolone 125 MG* 2 ML VIAL IV ONE (08:52)
[2018-11-10] MEDS ORDERED: Albuterol 2.5 MG/3 ML NEB.SOL* (0.083%) INH ONE (08:52)
[2018-11-10] MEDS ORDERED: NS 0.9% 1000 ML** 1,000 ML IV ONE (08:52)
[2018-11-10 09:16] LABS: ABS Basophils 0.1 10^3/ul (0-0.2); ABS Eosinophils 0.2 10^3/ul (0-0.6); ABS Lymphocytes 2.1 10^3/ul (1.0-4.8); ABS Monocytes 1.1 10^3/ul (0-0.8); ABS Neutrophils 4.1 10^3/ul (1.5-7.7); ABS Nucleated RBC 0 10^3/ul; Eosinophil % 2.5 %; Hematocrit 38 % (36-46); Hemoglobin 12.4 g/dL (14.0-18.0); Mean Corpuscular HGB Conc 32 g/dL (31-36); Mean Corpuscular Hemoglobin 29 pg (27-31); Mean Corpuscular Volume 90 fL (80-94); Mean Platelet Volume 8.6 fL (7.4-10.4); Nucleated Red Blood Cells % 0.1; Platelet Count 189 10^3/uL (150-450); Red Blood Count 4.25 10^6 /uL (4.18-5.48); Red Cell Distribution Width 15 % (10.5-15); White Blood Count 7.6 10^3/uL (3.5-10.8)
[2018-11-10 09:28] LABS: Albumin 4.3 g/dL (3.2-5.2); Albumin/Globulin Ratio 1.7 (1-3); BUN/Creatinine Ratio 15.1 (8-20); C Reactive Protein 32.3 mg/L (<8.01); Calcium 9.4 mg/dL (8.6-10.3); EGFR African American 122.7 (>60); EGFR Non-African American 101.4 (>60); Globulin 2.6 g/dL (2-4); Potassium 3.6 mmol/L (3.5-5.0); Total Bilirubin 1.3 mg/dL (0.2-1.0); Total Protein 6.9 g/dL (6.4-8.9)
[2018-11-10 09:29] LABS: Troponin I 0.03 ng/mL (<0.04)
[2018-11-10] MEDS ORDERED: Albuterol/Ipratropium NEB.SOL* Albuterol 2.5 MG/Ipratropium 0.5 MG 3 ML INH ONE (10:31)
[2018-11-10 11:54] VITALS: BP 122/74
== END 2018-11-10 11:53 | disposition home or self-care (01) ==
LOC: ED 08:33
DX: J44.1 Chronic obstructive pulmonary disease with (acute) exacerbation (principal); R09.81 Nasal congestion; R94.31 Abnormal electrocardiogram [ECG] [EKG]; R05 Cough; I48.91 Unspecified atrial fibrillation; I11.0 Hypertensive heart disease with heart failure; I50.9 Heart failure, unspecified; E11.9 Type 2 diabetes mellitus without complications; E78.00 Pure hypercholesterolemia, unspecified; M19.90 Unspecified osteoarthritis, unspecified site; R53.83 Other fatigue; R60.0 Localized edema; L98.9 Disorder of the skin and subcutaneous tissue, unspecified; Z79.84 Long term (current) use of oral hypoglycemic drugs; Z87.891 Personal history of nicotine dependence; Z99.81 Dependence on supplemental oxygen; Z79.01 Long term (current) use of anticoagulants
CPT/HCPCS: 36415; 71046; 80053; 83605; 83880; 84484; 85025; 86140; 93005; 96361; 96374; 99283; A9270-GY; J2930

== ENCOUNTER 2019-03-27 09:02 | Emergency (ER) | payer MEDICARE ==
[2019-03-27 09:32] VITALS: BP 132/59
--- NOTE | 2019-03-27 09:55 | UC ---
Skin Complaint HPI - HPI Summary HPI Summary: 88 yo male presents with painful lump to left neck. He tells me that yesterday he felt something "pop" in the left side of his throat/neck that was quite painful. This morning the area is larger, harder, and more painful. It hurts when he swallows. He does not see anything on the skin or in his throat. He is able to eat and drink. He has not taken anything OTC for his symptoms. Denies fever or chills. No pain with moving neck - History of Current Complaint Chief Complaint: UCGeneralIllness Time Seen by Provider: 03/27/19 09:54 Stated Complaint: LUMP ON NECK Hx Obtained From: Patient Onset/Duration: Gradual Onset Onset Severity: Moderate Current Severity: Severe Pain Intensity: 8 Pain Scale Used: 0-10 Numeric - Allergy/Home Medications Allergies/Adverse Reactions: Allergies Allergy/AdvReac Type Severity Reaction Status Date / Time No Known Allergies Allergy Verified 03/27/19 09:32 Home Medications: Home Medications metFORMIN* [Glucophage 500 MG TAB *] 500 mg PO DAILY 03/27/19 [History Confirmed 03/27/19] PMH/Surg Hx/FS Hx/Imm Hx Endocrine History: Diabetes, Dyslipidemia Cardiovascular History: Cardiac Disease, Hypertension, Pacemaker/ICD - Surgical History Surgical History: Yes Surgery Procedure, Year, and Place: RIGHT HIP PATIENT UNSURE - Family History Known Family History: Positive: Diabetes Negative: Cardiac Disease, Hypertension - Social History Occupation: Retired Lives: With Family Alcohol Use: Occasionally Substance Use Type: None Smoking Status (MU): Former Smoker Type: Cigarettes Length of Time of Smoking/Using Tobacco: 40+ YEARS OF SMOKING When Did the Patient Quit Smoking/Using Tobacco: 20 yrs - Immunization History Most Recent Influenza Vaccination: 2016 fall Most Recent Tetanus Shot: unknown Most Recent Pneumonia Vaccination: 2013 Hx Tetanus, Diphtheria Vaccination: Yes - 2010 Vaccination Up to Date: Yes Review of Systems All Other Systems Reviewed And Are Negative: No Constitutional: Positive: Negative Skin: Positive: Other - left neck mass/pain Eyes: Positive: Negative ENT: Positive: Negative Respiratory: Positive: Negative Cardiovascular: Positive: Negative Neurological: Positive: Negative Psychological: Positive: Negative Physical Exam - Summary Physical Exam Summary: GENERAL: NAD. WDWN. No pain distress. SKIN: No rashes, sores, lesions, or open wounds. HEENT: Head: AT/NC Eyes: EOM intact. Conjunctiva clear without inflammation or discharge. Ears: Hearing grossly normal. TMs intact, no bulging, erythema, or edema. Throat: Posterior oropharynx without exudates, erythema, or tonsillar enlargement. Uvula midline. NECK: LEFT anterior cervical extending to SCM with moderate sized firmness that is TTP. No fluctuance, erythema, or open wound appreciated. No pusitile mass or JVD. CHEST: CTAB. No r/r/w. No accessory muscle use. Breathing comfortably and in no distress. CV: RRR. Without m/r/g. Pulses intact. Cap refill <2seconds NEURO: Alert. PSYCH: Age appropriate behavior. Triage Information Reviewed: Yes Vital Signs: Initial Vital Signs Temp 98.0 F 03/27/19 09:25 Pulse 86 03/27/19 09:25 Resp 18 03/27/19 09:25 BP 132/59 03/27/19 09:25 Pulse Ox 100 03/27/19 09:25 Vital Signs Reviewed: Yes Course/Dx - Course Course Of Treatment: The area of concern could represent an underlying soft tissue neck abscess or a mass. Given it's location and proximity to the throat/airway and vessels - I recommended pt go to the ED for further evaluation -- likely CT scan with contrast of the area. He is currently stable and is in no pain or resp distress. He was agreeable to this and his will drive him. - Diagnoses Provider Diagnosis: Mass of left side of neck Discharge ED - Sign-Out/Discharge Documenting (check all that apply): Patient Departure All imaging exams completed and their final reports reviewed: No Studies - Discharge Plan Condition: Stable Disposition: HOME-RECOMMEND TO ED Referrals: Pawel Herring MD [Primary Care Provider] - Additional Instructions: Please go to the ER for further evaluation of your left neck mass - Billing Disposition and Condition Condition: STABLE Disposition: Home-Recommend to ED
== END 2019-03-27 10:20 | disposition home health service (06) ==
LOC: UCEAST 09:02
DX: R22.1 Localized swelling, mass and lump, neck (principal); I10 Essential (primary) hypertension; Z95.0 Presence of cardiac pacemaker; Z87.891 Personal history of nicotine dependence
CPT/HCPCS: 99212; G0463

== ENCOUNTER 2019-03-27 10:35 | Emergency (ER) | payer MEDICARE ==
[2019-03-27 12:40] LABS: ABS Eosinophils 0.1 10^3/ul (0-0.6); ABS Lymphocytes 2.7 10^3/ul (1.0-4.8); ABS Monocytes 1.2 10^3/ul (0-0.8); ABS Neutrophils 5.7 10^3/ul (1.5-7.7); Eosinophil % 0.9 %; Hematocrit 32 % (42-52); Hemoglobin 10.3 g/dL (14.0-18.0); Lymphocyte % 27.6 %; Mean Corpuscular HGB Conc 32 g/dL (31-36); Mean Corpuscular Hemoglobin 26 pg (27-31); Mean Corpuscular Volume 81 fL (80-94); Mean Platelet Volume 7.8 fL (7.4-10.4); Nucleated Red Blood Cells % 0.1; Platelet Count 235 10^3/uL (150-450); Red Blood Count 3.95 10^6 /uL (4.18-5.48); Red Cell Distribution Width 17 % (10-15); White Blood Count 9.7 10^3/uL (3.5-10.8)
[2019-03-27 12:59] LABS: Albumin 4.1 g/dL (3.2-5.2); BUN/Creatinine Ratio 26.2 (8-20); CRP High Sensitivity 3.96 mg/L (<2.00); Calcium 9.7 mg/dL (8.6-10.3); EGFR African American 150.6 (>60); EGFR Non-African American 124.5 (>60); Globulin 2.1 g/dL (2-4); Potassium 4.9 mmol/L (3.5-5.0); Total Bilirubin 0.8 mg/dL (0.2-1.0); Total Protein 6.2 g/dL (6.4-8.9)
[2019-03-27] MEDS ORDERED: Iodixanol* (CONTRAST) 320 MG/ML 100 ML SDV IV ONE (13:09)
[2019-03-27 14:47] VITALS: BP 0/0
--- NOTE | 2019-03-27 17:30 | ED ---
Throat Pain/Nasal Congestion - HPI Summary HPI Summary: Patient is an 88-year-old male who presents emergency department for painful swelling to the left side of his neck 2 days. Patient denies fever, chills, chest pain, shortness of breath, vomiting, abdominal pain, urinary symptoms, sore throat, ear pain. He notes pain is worse with eating. Symptoms are moderate in severity. Touching affected area makes symptoms worse. Nothing makes symptoms better. - History of Current Complaint Chief Complaint: EDThroatPain Time Seen by Provider: 03/27/19 12:13 Hx Obtained From: Patient - Allergies/Home Medications Allergies/Adverse Reactions: Allergies Allergy/AdvReac Type Severity Reaction Status Date / Time No Known Allergies Allergy Verified 03/27/19 09:32 PMH/Surg Hx/FS Hx/Imm Hx Previously Healthy: Yes Endocrine/Hematology History: Reports: Hx Diabetes - on metformin Denies: Hx Thyroid Disease Cardiovascular History: Reports: Hx Congestive Heart Failure, Hx Hypercholesterolemia, Hx Hypertension Respiratory History: Reports: Hx Chronic Obstructive Pulmonary Disease (COPD) Denies: Hx Asthma GI History: Reports: Hx Gastrointestinal Bleed Denies: Hx Ulcer History: Denies: Hx Renal Disease Comment Only: Other Problems/Disorders - hx admission for uti Musculoskeletal History: Reports: Hx Arthritis, Hx Back Problems Sensory History: Reports: Hx Contacts or Glasses, Hx Vision Problem, Hx Deafness , Hx Hearing Aid, Hx Hearing Problem Opthamlomology History: Reports: Hx Contacts or Glasses, Hx Vision Problem Neurological History: Denies: Other Neuro Impairments/Disorders - confusion - Surgical History Surgery Procedure, Year, and Place: RIGHT HIP PATIENT UNSURE Hx Anesthesia Reactions: No Infectious Disease History: No Infectious Disease History: Denies: Hx Clostridium Difficile, Hx Hepatitis, Hx Human Immunodeficiency Virus (HIV), Hx of Known/Suspected MRSA, Hx Shingles, Hx Tuberculosis, Hx Known/ Suspected VRE, Hx Known/Suspected VRSA, History Other Infectious Disease, Traveled Outside the [place] in Last 30 Days - Family History Known Family History: Positive: Diabetes, Non-Contributory Negative: Cardiac Disease, Hypertension - Social History Occupation: Retired Lives: With Family Alcohol Use: Occasionally Substance Use Type: Reports: None Hx Tobacco Use: No Smoking Status (MU): Former Smoker Type: Cigarettes Length of Time of Smoking/Using Tobacco: 40+ YEARS OF SMOKING Review of Systems Constitutional: Negative Negative: Fever, Chills Eyes: Negative ENT: Other - left sided neck pain and swelling. Negative: Dental Pain, Sore Throat, Ear Ache Cardiovascular: Negative Respiratory: Negative Gastrointestinal: Negative Skin: Negative All Other Systems Reviewed And Are Negative: Yes Physical Exam Triage Information Reviewed: Yes Vital Signs On Initial Exam: Initial Vitals Temp Pulse Resp BP Pulse Ox 97.8 F 68 18 150/84 96 03/27/19 10:37 03/27/19 10:37 03/27/19 10:37 03/27/19 10:37 03/27/19 10:37 Vital Signs Reviewed: Yes Appearance: Positive: Well-Appearing - Pt. sitting up in bed in NAD. present. Pleasant. Skin: Positive: Warm, Dry Head/Face: Positive: Normal Head/Face Inspection Eyes: Positive: Normal, EOMI ENT: Positive: Pharynx normal, Other - Small amount of whitish material expressed from left submandibular gland.. Negative: Tonsillar swelling, Tonsillar exudate Dental: Negative: Gross Decay/Caries @, Dental Fracture @, Abscess @, Cellulitis @ Neck: Positive: Supple, Other: - area of edema and pain noted left submandibular region. Respiratory/Lung Sounds: Positive: Clear to Auscultation, Breath Sounds Present Cardiovascular: Positive: Normal, RRR Neurological: Positive: Normal, CN Intact II-III Psychiatric: Positive: Affect/Mood Appropriate Diagnostics - Vital Signs Vital Signs Temp Pulse Resp BP Pulse Ox 03/27/19 14:46 0 F 0 0 0/0 0 03/27/19 10:37 97.8 F 68 18 150/84 96 - Laboratory Lab Results: Lab Results 03/27/19 03/27/19 Range/Units 12:31 12:31 WBC 9.7 (3.5-10.8) 10^3/uL RBC 3.95 L (4.18-5.48) 10^6 /uL Hgb 10.3 L (14.0-18.0) g/dL Hct 32 L (42-52) % MCV 81 (80-94) fL MCH 26 L (27-31) pg MCHC 32 (31-36) g/dL RDW 17 H (10-15) % Plt Count 235 (150-450) 10^3/uL MPV 7.8 (7.4-10.4) fL Neut % (Auto) 58.5 % Lymph % (Auto) 27.6 % [place] % (Auto) 12.6 % Eos % (Auto) 0.9 % Baso % (Auto) 0.4 % Absolute Neuts (auto) 5.7 (1.5-7.7) 10^3/ul Absolute Lymphs (auto) 2.7 (1.0-4.8) 10^3/ul Absolute Monos (auto) 1.2 H (0-0.8) 10^3/ul Absolute Eos (auto) 0.1 (0-0.6) 10^3/ul Absolute Basos (auto) 0.0 (0-0.2) 10^3/ul Absolute Nucleated RBC 0.0 10^3/ul Nucleated RBC % 0.1 Sodium 139 (135-145) mmol/L Potassium 4.9 (3.5-5.0) mmol/L Chloride 105 (101-111) mmol/L Carbon Dioxide 31 (22-32) mmol/L Anion Gap 3 (2-11) mmol/L BUN 16 (6-24) mg/dL Creatinine 0.61 L (0.67-1.17) mg/dL Est GFR ( Amer) 150.6 (>60) Est GFR (Non-Af Amer) 124.5 (>60) BUN/Creatinine Ratio 26.2 H (8-20) Glucose 103 H (70-100) mg/dL Calcium 9.7 (8.6-10.3) mg/dL Total Bilirubin 0.80 (0.2-1.0) mg/dL AST 15 (13-39) U/L ALT 12 (7-52) U/L Alkaline Phosphatase 68 (34-104) U/L C-React Prot High Sens 3.96 H (<2.00) mg/L Total Protein 6.2 L (6.4-8.9) g/dL Albumin 4.1 (3.2-5.2) g/dL Globulin 2.1 (2-4) g/dL Albumin/Globulin Ratio 2.0 (1-3) Result Diagrams: 03/27/19 12:31 09 12:31 Lab Statement: Any lab studies that have been ordered have been reviewed, and results considered in the medical decision making process. EENT Course/Dx - Course Course Of Treatment: Patient presenting with left sided neck swelling. He is afebrile with stable vital signs. Blood work is unremarkable. CT soft tissue neck per radiology: IMPRESSION: 1. THE LEFT SUBMANDIBULAR GLAND IS SLIGHTLY ENHANCING AND ENLARGED COMPARED TO THE RIGHT. WHICH MAY REFLECT SIALOADENITIS. THIS MAY CORRESPOND TO THE PALPABLE ABNORMALITY INDICATED. BY THE PRESENCE OF THE MARKER. THERE IS NO APPRECIABLE SIALOLITHIASIS SALIVARY DUCTAL. DILATATION. 2. THERE IS NO LYMPHADENOPATHY BY SIZE CRITERIA. 3. ATHEROSCLEROSIS. 4. EMPHYSEMA. 5. A BENIGN REPORT SHOULD NOT PRECLUDE OR DELAY THE EVALUATION OF A CLINICALLY SUSPICIOUS. PALPABLE ABNORMALITY. Exam and CT scan consistant with submandibular sialadenitis. We'll treat with Augmentin. Advised patient warm compresses and to suck on sour candies and glenna. Patient to follow up with ENT. We'll return for fever, vomiting, increased swelling or pain. Patient understand and agree with plan. - Diagnoses Provider Diagnoses: Sialadenitis Discharge ED - Sign-Out/Discharge Documenting (check all that apply): Patient Departure Patient Received Moderate/Deep Sedation with Procedure: No - Discharge Plan Condition: Good Disposition: HOME Prescriptions: Amoxicillin/Clavulanate TAB* [Augmentin TAB 875*] 875 mg PO BID #20 tab Patient Education Materials: Sialoadenitis (ED) Referrals: Aunrag Segovia MD [Medical Doctor] - Pawel Herring MD [Primary Care Provider] - Additional Instructions: Schedule a follow up appointment with Dr. Segovia, ENT, within one week Take antibiotic as directed Tylenol for pain as directed Suck on sour candies or glenna Return to ER for increased pain, fever, vomiting or if concerned - Billing Disposition and Condition Condition: GOOD Disposition: Home - Attestation Statements Provider Attestation: I was available for consultation for this patient. I did not evaluate the patient or participate in any medical decision making or disposition decisions unless I am specifically named in the chart as having consulted on the patient. If I have consulted on the patient, please see my own ED note on the patient encounter. Lexi White MD
== END 2019-03-27 14:46 | disposition home or self-care (01) ==
LOC: ED 10:35
DX: K11.20 Sialoadenitis, unspecified (principal); I70.90 Unspecified atherosclerosis; E11.9 Type 2 diabetes mellitus without complications; I11.0 Hypertensive heart disease with heart failure; I50.9 Heart failure, unspecified; E78.00 Pure hypercholesterolemia, unspecified; J44.9 Chronic obstructive pulmonary disease, unspecified; Z87.891 Personal history of nicotine dependence; Z79.01 Long term (current) use of anticoagulants; Z79.84 Long term (current) use of oral hypoglycemic drugs; Z79.899 Other long term (current) drug therapy; Z95.0 Presence of cardiac pacemaker
CPT/HCPCS: 36415; 70491; 80053; 85025; 86141; 99212; 99283; G0463; Q9967

== ENCOUNTER 2019-07-13 16:38 | Inpatient (IN) | payer MEDICARE ==
--- OUTSIDE RECORDS SUMMARY | 2019-07-13 17:01 | XMS REPORT | Continuity of Care Document ---
:1930 External Reference #:[id number] Author Name Rema Gonzalez M.D. (transmitted by agent of provider Dary Cavazos) Address [address] [facility] [facility] [place] [address] Problems Active Problems Provider Date Chronic obstructive lung disease Pawel Herring M.D. Onset: 05/26/2011 Benign essential hypertension Pawel Herring M.D. Onset: 05/26/2011 Impaired fasting glycaemia Pawel Herring M.D. Onset: 05/26/2011 Pure hypercholesterolemia Pawel Herring M.D. Onset: 05/26/2011 Dyspnea Darya Wilson MD Onset: 06/24/2014 Dyssomnia Darya Wilson MD Onset: 06/24/2014 Pulmonary emphysema Darya Wilson MD Onset: 11/13/2014 Chronic respiratory failure Darya Wilson MD Onset: 11/13/2014 Localized, primary osteoarthritis Rema Gonzalez M.D. Onset: 03/31/2015 Impaired fasting glycaemia Pawel Herring M.D. Onset: 08/12/2015 Chronic atrial fibrillation Seth Wang NP Onset: 09/04/2015 Note: on Eliquis & digoxin HR to low to start BB or other following cardiology Type 2 diabetes mellitus Pawel Herring M.D. Onset: 12/24/2016 Social History Type Date Description Comments Sex Unknown ETOH Use Currently consumes 2-5 drinks per week alcohol per pt Tobacco Use Start: Unknown End: Patient is a former smoked for 45+ Unknown smoker years, 1ppd, quit in 1999 Recreational Drug Use Denies Drug Use Smoking Status Reviewed: 05/21/19 Patient is a former smoked for 45+ smoker years, 1ppd, quit in 1999 Exercise Type/Frequency Does not exercise Allergies, Adverse Reactions, Alerts Description No Known Drug Allergies Medications Active Medications SIG Qnty Indications Ordering Date Provider Lisinopril-Hydrochlo Take 1 Tablet By 90tabs Pawel Hinojosa 08/11/2017 rothiazide Mouth Every Day Vinicius Herring 20-12.5mg Tablets Freestyle Precision test weekly or as 100units Pawel EDennis 08/01/2017 Garth Blood Glucose directed for Dx. Vinicius Herring Test Strips E11.9 Strips Metformin HCL Take 2 Tablets By 360tabs E11.9 Pawel Hinojosa 09/23/2016 500mg Mouth Twice A Vinicius Herring Tablets Day Famotidine Take 1 Tablet By 90tabs Pawel Hinojosa 08/18/2016 20mg Mouth Every Day Vinicius Herring Tablets Nebulizer for use 4 times QS Pawel EDennis 09/30/2015 Kit/Tubing/Mouthpiec daily as needed Vinicius Herring e Kit Digox 1 by mouth every 90tabs R94.31 Rocael DDennis 09/04/2015 125mcg Tablets day Vinicius Ayala Eliquis 1 tablet by mouth 180tabs R94.31 Pawel E. 09/04/2015 2.5mg Tablets twice a day- Vinicius Herring blood thinner. I48.2 Brovana 1 dose by nebulizer 60units J44.9 Pawel E. 09/01/2015 15mcg/2ML twice a day Vinicius Herring Nebulizer Budesonide 1 dose twice a day 60units Pawel EDennis 09/01/2015 0.5mg/2ML via nebulizer ( used Vinicius Herring Suspension as needed ) Ipratropium [place] inhale the contents 150ml Pawel Hinojosa 09/01/2015 0.02% of one vial via Vinicius Herring Solution nebulizer twice a day Oxygen please use o2 at 1units Pawel EDennis 08/13/2015 Misc 2l/min during Vinicius Herring exertion. please provide pt with portable o2 concentrator Albuterol Sulfate via/nebulizer use q 100units Pawel EDennis 10/22/2009 4-6 hrs prn shortness Vinicius Herring (2.5mg/3ML) 0.083% of breath Nebulizer Lovastatin take 1 tablet by 90tabs Pawel Hinojosa 10/22/2009 40mg Tablets mouth every night at Vinicius Herring bedtime Aleve 1 po qam prn Pawel Hinojosa 01/10/2008 220mg Tablets Vinicius Herring Oxygen Concentrator used continuous at Unknown night Compression Stockings 11/16/18 reports Unknown doesn't wear 20-30 Misc MMHG Knee Highs Tylenol 2 tablets every 4 Unknown 325mg Capsules hours as needed for pain Pepcid 11/16/18 reports not Unknown 20mg Tablets taking take 1 tablet by mouth two times daily Percocet 11/16/18 reports not Unknown 5-325mg Tablets taking 1-2 tabs by mouth every 4-6 hours as needed pain Zosyn 11/16/18 not taking iv Unknown 3-0.375GM/50ML every 8 hours x 42 Solution days through [facility] Medications Administered in Office Medication SIG Qnty Indications Ordering Provider Date Yvette Gonzalez M.D. 05/21/2019 Injection Depomedrol DEVAN Gonzalez M.D. 05/21/2019 Injection Depomedrol DEVAN Gonzalez M.D. 02/16/2019 Injection Quintonrol DEVAN Gonzalez M.D. 02/16/2019 Injection Quintonrol DEVAN Gonzalez M.D. 2018 Injection Niviaomedrol DEVAN Gonzalez M.D. 2018 Injection Niviaomedrol DEVAN Gonzalez M.D. 08/14/2018 Injection Niviaomedrol 40MG Rema Gonzalez M.D. 08/14/2018 Injection Niviaomedrol 40MG Rema Gonzalez M.D. 05/05/2018 Injection Niviaomedrol 40MG Rema Gonzalez M.D. 05/05/2018 Injection Qiuntonrol DEVAN Gonzalez M.D. 01/27/2018 Injection Quintonrol 40MG Rema Gonzalez M.D. 01/27/2018 Injection Depomedrol 40MG Rema Gonzalez M.D. 10/28/2017 Injection Depomedrol 40MG Rema Gonzalez M.D. 10/28/2017 Injection Depomedrol 40MG Rema Gonzalez M.D. 07/29/2017 Injection Depomedrol 40MG Rema Gonzalez M.D. 07/29/2017 Injection Depomedrol 40MG Rema Gonzalez M.D. 04/27/2017 Injection Depomedrol 40MG Rema Gonzalez M.D. 04/27/2017 Injection Depomedrol 40MG Rema Gonzalez M.D. 01/24/2017 Injection Depomedrol 40MG Rema Gonzalez M.D. 01/24/2017 Injection Depomedrol 40MG Rema Gonzalez M.D. 10/27/2016 Injection Depomedrol 40MG Rema Gonzalez M.D. 10/27/2016 Injection Triamcinolone (Kenalog) Rema Gonzalez M.D. 07/28/2016 Injection Triamcinolone (Kenalog) Rema Gonzalez M.D. 07/28/2016 Injection Depomedrol 40MG Rema Gonzalez M.D. 03/29/2016 Injection Depomedrol 40MG Rema Gonzalez M.D. 12/26/2015 Injection Depomedrol 40MG Rema Gonzalez M.D. 12/26/2015 Injection Niviaomedrol 40MG Rema Gonzalez M.D. 09/24/2015 Injection Depomedrol 80MG Rema Gonzalez M.D. 06/16/2015 Injection Depomedrol 80MG Rema Gonzalez M.D. 03/31/2015 Injection Influenza Virus Vaccine Unknown 03/18/2014 Injection Influenza Virus Vaccine Unknown 04/17/2013 Injection Immunizations CPT Code Status Date Vaccine Lot # [id number] Given 04/10/2019 Influenza Virus Vaccine, Quadrivalent, Split, Preservative Free 17959 Given 04/15/2017 Influenza Virus Vaccine, Quadrivalent, Split, Preservative Free 72625 Given 04/21/2016 Fluzone High Dose Q2039 Given 04/21/2015 Flu Vaccine NOS 94058 Given 04/30/2014 Pneumococcal Conjugate Vaccine 13 Valent For [id number] Intramuscular Use 94129 Given 07/18/2013 Zoster (Zostavax) 27141 Given 12/04/2012 Tdap - Tetanus/Diptheria/Acellular Pertussis [id number] Q2038 Given 04/24/2012 Fluzone Vaccine [id number] Given 04/21/2011 Fluzone Vaccine [id number] 03738 Given 07/25/2009 Influenza Virus Vaccine, Pandemic Formulation [id number] 81693 Given 07/25/2009 Administration Swine Flu Shot 28695 Given 04/12/2008 Influenza Virus 3Yrs & Over 90472 Given 04/12/2008 Influenza Virus 3Yrs & Over 46058 Given 04/25/2007 Influenza Virus 3Yrs & Over 89378 Given 11/06/2002 Td (History By Patient) 01307 Given 10/22/2002 Pneumovax (History By Patient) Vital Signs Date Vital Result Comment 05/21/2019 9:44am Height 68.5 inches 5'8.50" Weight 155.00 lb stated Heart Rate 68 /min BP Systolic 106 mmHg BP Diastolic 64 mmHg Respiratory Rate 12 /min Pain Level 0 BMI (Body Mass Index) 23.2 kg/m2 02/16/2019 9:44am Height 68.5 inches 5'8.50" Heart Rate 64 /min BP Systolic 120 mmHg BP Diastolic 64 mmHg Respiratory Rate 18 /min Pain Level 3 Results Test Acquired Date Facility Test Result H/L Range Note CBC Auto 03/27/2019 [facility] White Blood 9.7 10^3/uL Normal 3.5-10.[address] [place] [address] [phone] Red Blood Count 3.95 10^6/uL Low 4.18-5.48 Hemoglobin 10.3 g/dL Low 14.0-18.0 Hematocrit 32 % Low 42-52 Mean Corpuscular Volume 81 fL Normal 80-94 Mean Corpuscular Hemoglobin 26 pg Low 27-31 Mean Corpuscular HGB Conc 32 g/dL Normal 31-36 Red Cell Distribution Width 17 % High 10-15 Platelet Count 235 10^3/uL Normal 150-450 Mean Platelet Volume 7.8 fL Normal 7.4-10.4 Abs Neutrophils 5.7 10^3/uL Normal 1.5-7.7 Abs Lymphocytes 2.7 10^3/uL Normal 1.0-4.8 Abs Monocytes 1.2 10^3/uL High 0-0.8 Abs Eosinophils 0.1 10^3/uL Normal 0-0.6 Abs Basophils 0.0 10^3/uL Normal 0-0.2 Abs Nucleated RBC 0.0 10^3/uL Granulocyte % 58.5 % Lymphocyte % 27.6 % Monocyte % 12.6 % Eosinophil % 0.9 % Basophil % 0.4 % Nucleated Red Blood Cells % 0.1 Comp Metabolic 03/27/2019 [facility] Sodium 139 mmol/L Normal 135-[address] [place] [address] [phone] Potassium 4.9 mmol/L Normal 3.5-5.0 Chloride 105 mmol/L Normal 101-111 Co2 Carbon Dioxide 31 mmol/L Normal 22-32 Anion Gap 3 mmol/L Normal 2-11 Glucose 103 mg/dL High 70-100 Blood Urea Nitrogen 16 mg/dL Normal 6-24 Creatinine 0.61 mg/dL Low 0.67-1.17 BUN/Creatinine Ratio 26.2 High 8-20 Calcium 9.7 mg/dL Normal 8.6-10.3 Total Protein 6.2 g/dL Low 6.4-8.9 Albumin 4.1 g/dL Normal 3.2-5.2 Globulin 2.1 g/dL Normal 2-4 Albumin/Globulin Ratio 2.0 Normal 1-3 Total Bilirubin 0.80 mg/dL Normal 0.2-1.0 Alkaline Phosphatase 68 U/L Normal 34-104 Alt 12 U/L Normal 7-52 Ast 15 U/L Normal 13-39 Egfr Non- 124.5 >60 Egfr 150.6 >60 1 Laboratory test 03/27/2019 [facility] CRP High 3.96 mg/L High <2.[address] [place] [address] [phone] Laboratory test 03/21/2019 [facility] Hemoglobin A1c 6.2 5-7 finding 1 Because ethnic data is not always [...] 15-29 5 Kidney failure <15 (or dialysis) Procedures Date Code Description Status 05/21/201923770 Inject/Drain Joint/Bursa Major W/O US Completed 05/21/2019 Inject/Drain Joint/Bursa Major W/O US Completed 02/16/2019 Inject/Drain Joint/Bursa Major W/O US Completed 01/04/2019 333256744 Diabetic Foot Exam Completed 10/17/2018 736361330 Bone Mineral Density Test Completed 03/06/2001 56753730 Colonoscopy Completed Medical Devices Description No Information Available Encounters Description No Information Available Assessments Date Code Description Provider 05/21/2019 M25.561 Pain in right knee Rema Gonzalez M.D. 05/21/2019 M25.562 Pain in left knee Rema Gonzalez M.D. 05/21/2019 M25.461 Effusion, right knee Rema Gonzalez M.D. 05/21/2019 M25.462 Effusion, left knee Rema Gonzalez M.D. 05/21/2019 M17.0 Bilateral primary osteoarthritis of knee Rema Gonzalez M.D. 03/21/2019 E11.9 Type 2 diabetes mellitus without Nurse Visit A complications 03/21/2019 E11.9 Type 2 diabetes mellitus without Pawel Herring M.D. complications 02/16/2019 M25.561 Pain in right knee Rema Gonzalez M.D. 02/16/2019 M25.562 Pain in left knee Rema Gonzalez M.D. 02/16/2019 M25.461 Effusion, right alvaro Gonzalez M.D. 02/16/2019 M25.462 Effusion, left knee Rema Gonzalez M.D. 02/16/2019 M17.0 Bilateral primary osteoarthritis of knee Rema Gonzalez M.D. Plan of Treatment Future Appointment(s):08/20/2019 9:30 am - Rema Gonzalez M.D. at [facility]/20/2019 9:20 am - Pawel Herring M.D. at [facility]05/21/2019 - Rema Gonzalez M.D.M25.561 Pain in right kneeFollow up:Follow up: 3 pzpmonX91.562 Pain in left kneeM25.461 Effusion, right kneeM25.462 Effusion, left kneeM17.0 Bilateral primary osteoarthritis of knee Functional Status Description No Information Available Mental Status Description No Information Available Referrals Description No Information Available
[2019-07-13 20:01] LABS: ABS Eosinophils 0.1 10^3/ul (0-0.6); ABS Lymphocytes 2.9 10^3/ul (1.0-4.8); ABS Neutrophils 4.6 10^3/ul (1.5-7.7); Eosinophil % 1.6 %; Hematocrit 26 % (42-52); Hemoglobin 7.9 g/dL (14.0-18.0); Lymphocyte % 33.2 %; Mean Corpuscular HGB Conc 30 g/dL (31-36); Mean Corpuscular Hemoglobin 20 pg (27-31); Mean Corpuscular Volume 68 fL (80-94); Mean Platelet Volume 8.8 fL (7.4-10.4); Nucleated Red Blood Cells % 0.1; Platelet Count 211 10^3/uL (150-450); Red Blood Count 3.91 10^6 /uL (4.18-5.48); Red Cell Distribution Width 21 % (10-15); White Blood Count 8.6 10^3/uL (3.5-10.8)
--- NOTE | 2019-07-13 20:09 | ED ---
Shortness of Breath - HPI Summary HPI Summary: Patient presents for exertional shortness of breath and episodes of racing heart rate starting today. Patient states he was getting short of breath walking from the waiting room to kitchen. Denies fever, cough, sore throat, CP , and/V/V abdominal pain, change in urine, change in BM. History of A. fib on Eliquis. Medical history includes A. fib, hypertension, COPD, anemia, DM, CHF, EtOH abuse. Patient on home O2 at 2L every night, and when necessary during the day. - History of Current Complaint Chief Complaint: EDShortnessOfBreath Time Seen by Provider: 07/13/19 20:05 Hx Obtained From: Patient, Family/[employer] Assistant Onset/Duration: Sudden Onset, Lasting Hours Current Severity: Moderate Dyspnea At: Exertion Associated Signs & Symptoms: Negative - Allergy/Home Medications Allergies/Adverse Reactions: Allergies Allergy/AdvReac Type Severity Reaction Status Date / Time No Known Allergies Allergy Verified 07/13/19 16:50 Home Medications: Home Medications Digoxin TAB* [Lanoxin TAB*] 0.125 mg PO DAILY 07/13/19 [History Confirmed ] PMH/Surg Hx/FS Hx/Imm Hx Endocrine/Hematology History: Reports: Hx Diabetes - on metformin Denies: Hx Thyroid Disease Cardiovascular History: Reports: Hx Congestive Heart Failure, Hx Hypercholesterolemia, Hx Hypertension Respiratory History: Reports: Hx Chronic Obstructive Pulmonary Disease (COPD) Denies: Hx Asthma GI History: Reports: Hx Gastrointestinal Bleed Denies: Hx Ulcer History: Denies: Hx Renal Disease Comment Only: Other Problems/Disorders - hx admission for uti Musculoskeletal History: Reports: Hx Arthritis, Hx Back Problems Sensory History: Reports: Hx Contacts or Glasses, Hx Vision Problem, Hx Deafness , Hx Hearing Aid, Hx Hearing Problem Opthamlomology History: Reports: Hx Contacts or Glasses, Hx Vision Problem EENT History: Reports: Hx Hearing Problem Neurological History: Denies: Other Neuro Impairments/Disorders - confusion - Surgical History Surgery Procedure, Year, and Place: RIGHT HIP PATIENT UNSURE Hx Anesthesia Reactions: No Infectious Disease History: No Infectious Disease History: Denies: Hx Clostridium Difficile, Hx Hepatitis, Hx Human Immunodeficiency Virus (HIV), Hx of Known/Suspected MRSA, Hx Shingles, Hx Tuberculosis, Hx Known/ Suspected VRE, Hx Known/Suspected VRSA, History Other Infectious Disease, Traveled Outside the [place] in Last 30 Days - Family History Known Family History: Positive: Diabetes, Non-Contributory Negative: Cardiac Disease, Hypertension - Social History Alcohol Use: Occasionally Substance Use Type: Reports: None Hx Tobacco Use: No Smoking Status (MU): Former Smoker Type: Cigarettes Length of Time of Smoking/Using Tobacco: 40+ YEARS OF SMOKING Review of Systems Constitutional: Negative Eyes: Negative ENT: Negative Cardiovascular: Negative Positive: Shortness Of Breath Gastrointestinal: Negative Genitourinary: Negative Musculoskeletal: Negative Skin: Negative Neurological: Negative Psychological: Normal All Other Systems Reviewed And Are Negative: Yes Physical Exam Triage Information Reviewed: Yes Vital Signs On Initial Exam: Initial Vitals Temp Pulse Resp BP Pulse Ox 98.3 F 65 17 159/85 99 07/13/19 16:45 07/13/19 16:45 07/13/19 16:45 07/13/19 16:45 07/13/19 16:45 Vital Signs Reviewed: Yes Appearance: Positive: Well-Appearing Skin: Positive: Warm Head/Face: Positive: Normal Head/Face Inspection Eyes: Positive: Normal ENT: Positive: Normal ENT inspection Neck: Positive: Supple Respiratory/Lung Sounds: Positive: Clear to Auscultation Cardiovascular: Positive: IRR Abdomen Description: Positive: Nontender Musculoskeletal: Positive: Normal Neurological: Positive: Normal Psychiatric: Positive: Normal AVPU Assessment: Alert - Sushil Coma Scale Best Eye Response: 4 - Spontaneous Best Motor Response: 6 - Obeys Commands Best Verbal Response: 5 - Oriented Coma Scale Total: 15 Procedures - Sedation Patient Received Moderate/Deep Sedation with Procedure: No Diagnostics - Vital Signs Vital Signs Temp Pulse Resp BP Pulse Ox 07/13/19 18:34 99.3 F 90 16 151/84 98 07/13/19 16:45 98.3 F 65 17 159/85 99 - Laboratory Lab Results: Lab Results 07/13/19 Range/Units 19:49 WBC 8.6 (3.5-10.8) 10^3/uL RBC 3.91 L (4.18-5.48) 10^6 /uL Hgb 7.9 L (14.0-18.0) g/dL Hct 26 L (42-52) % MCV 68 L (80-94) fL MCH 20 L (27-31) pg MCHC 30 L (31-36) g/dL RDW 21 H (10-15) % Plt Count 211 (150-450) 10^3/uL MPV 8.8 (7.4-10.4) fL Neut % (Auto) 52.9 % Lymph % (Auto) 33.2 % [place] % (Auto) 11.8 % Eos % (Auto) 1.6 % Baso % (Auto) 0.5 % Absolute Neuts (auto) 4.6 (1.5-7.7) 10^3/ul Absolute Lymphs (auto) 2.9 (1.0-4.8) 10^3/ul Absolute Monos (auto) 1.0 H (0-0.8) 10^3/ul Absolute Eos (auto) 0.1 (0-0.6) 10^3/ul Absolute Basos (auto) 0.0 (0-0.2) 10^3/ul Absolute Nucleated RBC 0.0 10^3/ul Nucleated RBC % 0.1 Result Diagrams: 07/13/19 19:48 07/13/19 19:48 Lab Statement: Any lab studies that have been ordered have been reviewed, and results considered in the medical decision making process. Course/Dx - Course Course Of Treatment: Patient presents for exertional shortness of breath and episodes of racing heart rate starting today. Patient states he was getting short of breath walking from the waiting room to kitchen. Denies fever, cough, sore throat, CP, and/V/V abdominal pain, change in urine, change in BM. History of A. fib on Eliquis. Medical history includes A. fib, hypertension, COPD, anemia, DM, CHF, EtOH abuse. Patient on home O2 at 2L every night, and when necessary during the day. Vital signs within normal limits. Hgb 7.9. Initial troponin is 0.08. EKG A. fib with heart rate of 88, RBBB, similar to prior. Chest x-ray positive for new right side pleural effusion versus prior chest x-ray on 11/10/18. Admitted to hospitalist. - Diagnoses Provider Diagnoses: Exertional shortness of breath, Elevated troponin I level, Anemia Discharge ED - Sign-Out/Discharge Documenting (check all that apply): Patient Departure - Discharge Plan Condition: Stable Disposition: ADMITTED TO [facility] Referrals: Pawel Herring MD [Primary Care Provider] - - Billing Disposition and Condition Condition: STABLE Disposition: Admitted to [facility]
[2019-07-13 20:23] LABS: ALT 10 U/L (7-52); AST 16 U/L (13-39); Albumin 4.2 g/dL (3.2-5.2); Albumin/Globulin Ratio 1.8 (1-3); Alkaline Phosphatase 65 U/L (34-104); Anion Gap 6 mmol/L (2-11); BUN/Creatinine Ratio 25.7 (8-20); Blood Urea Nitrogen 18 mg/dL (6-24); CO2 Carbon Dioxide 28 mmol/L (22-32); Calcium 9.7 mg/dL (8.6-10.3); Chloride 104 mmol/L (101-111); EGFR African American 128.5 (>60); EGFR Non-African American 106.2 (>60); Globulin 2.3 g/dL (2-4); Glucose 121 mg/dL (70-100); Potassium 4.3 mmol/L (3.5-5.0); Sodium 138 mmol/L (135-145); Total Protein 6.5 g/dL (6.4-8.9)
[2019-07-13 20:27] LABS: Troponin I 0.08 ng/mL (<0.03)
[2019-07-13 20:30] LABS: Microcytosis 2+; Polychromasia 1+
[2019-07-14 00:54] LABS: Troponin I 0.03 ng/mL (<0.03)
[2019-07-14 03:15] LABS: Troponin I 0.03 ng/mL (<0.03)
[2019-07-14 05:27] LABS: Immature Retic Fraction 0.49; RBC Retic Count 3.81 10^6/uL (4.18-5.48); Red Blood Count 3.81 10^6 /uL (4.18-5.48)
[2019-07-14 05:33] LABS: ABS Eosinophils 0.1 10^3/ul (0-0.6); ABS Lymphocytes 2.6 10^3/ul (1.0-4.8); ABS Neutrophils 4.3 10^3/ul (1.5-7.7); Corrected Retic Count 0.9 % (0.5-1.5); Eosinophil % 1.6 %; Hematocrit 26 % (42-52); Hematocrit for Retic CNT 26 % (42-52); Hemoglobin 7.7 g/dL (14.0-18.0); Lymphocyte % 32.5 %; Mean Corpuscular HGB Conc 30 g/dL (31-36); Mean Corpuscular Hemoglobin 20 pg (27-31); Mean Corpuscular Volume 68 fL (80-94); Mean Platelet Volume 8.5 fL (7.4-10.4); Nucleated Red Blood Cells % 0.1; Platelet Count 192 10^3/uL (150-450); Red Cell Distribution Width 21 % (10-15); White Blood Count 8.1 10^3/uL (3.5-10.8)
[2019-07-14 05:42] LABS: Anion Gap 6 mmol/L (2-11); BUN/Creatinine Ratio 24.2 (8-20); Blood Urea Nitrogen 16 mg/dL (6-24); CO2 Carbon Dioxide 27 mmol/L (22-32); Calcium 9.5 mg/dL (8.6-10.3); Chloride 105 mmol/L (101-111); EGFR African American 137.5 (>60); EGFR Non-African American 113.6 (>60); Glucose 119 mg/dL (70-100); Potassium 3.9 mmol/L (3.5-5.0); Sodium 138 mmol/L (135-145)
[2019-07-14 05:48] LABS: Troponin I 0.03 ng/mL (<0.03)
[2019-07-14 06:43] LABS: TSH (Thyroid Stimulating Horm) 1.02 mcIU/mL (0.34-5.60)
--- NOTE | 2019-07-14 08:25 | HP ---
CC: Dr. Pawel Herring* ADMISSION HISTORY AND PHYSICAL: DATE OF ADMISSION: 07/14/19 PRIMARY CARE PHYSICIAN: Dr. Pawel Herring. REGULATORY AFFAIRS COORDINATOR: Dr. Rocael Ayala. CHIEF COMPLAINT: Progressive shortness of breath. 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 The patient stated that for the last 3 days, he has noticed increased work of breathing, generalized weakness, even when he goes from the bedroom to his bathroom, by the time he returns to his bed , he feels completely exhausted and winded, which is not his baseline. He denies any obvious wheezing for the last few days, any cough, any fever or chills, any chest pain, any nausea, vomiting or diarrhea; any other urinary burning sensation or pain with urination. He denies any blood in his stool or dark tarry stools. Denies any sick contacts. PAST MEDICAL HISTORY: As mentioned, history of COPD; history of AFib, on anticoagulation; history of diabetes, on metformin; history of lung scarring, status post resection of the right lower lobe; hypoxic respiratory failure, on intermittent nasal cannula oxygen; history of hypertension; and osteoarthritis bilaterally, especially of the knees. PAST MEDICAL HISTORY: Include the right hip surgery, appendectomy, and cholecystectomy, and right sided hernia repair. HOME MEDICATIONS: The patient is currently on: 1. Metformin 500 mg oral daily. 2. Lisinopril and hydrochlorothiazide 1 tablet oral daily. 3. Lovastatin 40 mg daily at bedtime. 4. Pepcid 20 mg oral daily. 5. Eliquis 5 mg p.o. b.i.d. 6. Digoxin 0.125 mg oral daily. ALLERGIES: No known drug allergies. PHYSICAL EXAMINATION GENERAL: The patient is awake, alert, and oriented x3, did not appear to be in any acute distress. VITAL SIGNS: In the ER, temperature was recorded at 99.3 degrees max, and repeat temperature was 98.0, heart rate 81, respiratory rate 18, saturating 98% on 2 L nasal cannula, BP was noted to be 131/78. HEAD AND NECK: Atraumatic, normocephalic. Bilateral pupils were reactive. Oral mucosa was moist. Neck supple. No jugular venous distention. LUNGS: Clear to auscultation bilaterally. No wheezing, rhonchi or rales. HEART: S1, S2. Regular rate and rhythm. ABDOMEN: Soft, nontender, nondistended. EXTREMITIES: The patient had bilateral pitting edema up to the knee, which he states he has had for the last 2 years ever since he had the hip arthroplasty. DIAGNOSTIC STUDIES/LAB DATA: CBC was showing normal white count, but hemoglobin decreased at 7.9, compared to his recent lab from March 2019, which was at 10.3, and the one prior to that from October was 12.4. RDW was elevated at 21, platelet count was 211. Comprehensive metabolic panel was significant for elevated random glucose at 121. Troponin I minimally elevated at 0.08, but subsequent troponin improved to 0.03. LFTs were within normal limits. Portable chest x-ray shows scarring from the previous right lower lobe resection and some blunting on the right costophrenic angle due to that surgery , but otherwise no significant infiltrates, was noted. Official read is still pending. I did compare the x-ray to an older PA and lateral film from October 2018 , where the right costophrenic angle was not as blunted and more sharp. Another possibility for this blunting on that side could be an infiltrate versus pleural effusion on the today's x-ray. EKG shows AFib at 88 beats per minute when compared to older EKG from October 2018, essentially unchanged, although the previous EKG did have a bit taller waves. Waveform themselves were very similar. IMPRESSION: This is an 88-year-old gentleman here with worsening shortness of breath and also noted to have a steady drop in hemoglobin for the last few months along with abnormal chest x-ray. ASSESSMENT AND PLAN: 1. Shortness of breath secondary to symptomatic anemia versus questionable component of pneumonia versus . For now, we will monitor his hemoglobin, follow up an anemia panel. Stool occult so far has been negative. Check a retic count to see if this is an acute change and consider replacement of any minerals and vitamins that could be deficient and follow influenza panel as well. 2. History of atrial fibrillation, on anticoagulation. We will restart his anticoagulation. 3. History of hypertension. Restart BP medication. 4. History of diabetes. We will hold metformin for now. 5. Lower extremity edema, rule out any congestive heart failure. We will follow up echocardiogram and consider a diuretic therapy. 6. DVT prophylaxis with sequential compression device as tolerated as heparin would be contraindicated in a patient with symptomatic anemia. [id number]/[facility] #: [id number] MTDD
[2019-07-14] MEDS ORDERED: Apixaban* 5 MG TAB PO SCH (09:00)
[2019-07-14 09:20] LABS: Total Iron Binding Capacity 435 mcg/dL (250-450); Transferrin 311 mg/dL (203-362)
[2019-07-14 09:24] LABS: % Iron Saturation 5 % (15-55); Iron < 20 ug/dL (50-212)
[2019-07-14 09:40] LABS: Ferritin 11.4 ng/mL (24-336)
[2019-07-14 09:47] LABS: Folate 14.91 ng/mL (>3.99)
[2019-07-14] MEDS: Lisinopril TAB* 10 MG PO SCH (09:52)
[2019-07-14] MEDS: Hydrochlorothiazide TAB* 25 MG PO SCH (09:52)
[2019-07-14] MEDS: Famotidine TAB* 20 MG PO SCH (09:53)
[2019-07-14] MEDS: Digoxin TAB* 0.125 MG PO SCH (09:54)
[2019-07-14 10:51] LABS: Urine Appearance Clear; Urine Bilirubin Negative (Negative); Urine Blood Negative (Negative); Urine Color Yellow; Urine Glucose Negative (Negative); Urine Ketones Negative (Negative); Urine Nitrite Negative (Negative); Urine Protein Negative (Negative); Urine Specific Gravity 1.014 (1.010-1.030); Urine Urobilinogen Negative (Negative)
[2019-07-14] MEDS ORDERED: Ferric Gluconate IV* 125 MG in NS 0.9% 100 ML* 100 ML IVPB SCH (12:00)
[2019-07-14] MEDS: Iron Sucrose* 200 MG in NS 0.9% 100 ML* 100 ML IVPB SCH (12:43)
[2019-07-14] MEDS ORDERED: Docusate CAP* 100 MG PO PRN (15:07)
[2019-07-14] MEDS ORDERED: Magnesium Hydroxide LIQ* 30 ML UDC PO PRN (15:07)
--- NOTE | 2019-07-14 16:13 | PN ---
Subjective Date of Service: 07/14/19 Interval History: Patient seen resting in bed, multiple family members in room who are actively engaged in his care. Patient stated that at rest he did not have any palpitations or lightheadedness but does if he gets out of bed to go to the bathroom. Fatigued. Denies chest pain. Short of breath with exertion. Denies nausea, vomiting or issues moving bowel or bladder. Family History: Unchanged from Admission Social History: Unchanged from Admission Past Medical History: Unchanged from Admission Objective Active Medications: Apixaban (Eliquis*) 5 mg PO BID [facility] Last Admin: 07/14/19 09:53 Dose: 5 mg Atorvastatin Calcium (Lipitor*) 10 mg PO BEDTIME [facility] Digoxin (Lanoxin Tab*) 0.125 mg PO DAILY [facility] Last Admin: 07/14/19 09:54 Dose: 0.125 mg Docusate Sodium (Colace Cap*) 100 mg PO BID PRN PRN Reason: CONSTIPATION Famotidine (Pepcid Tab*) 20 mg PO DAILY [facility] Last Admin: 07/14/19 09:53 Dose: 20 mg Hydrochlorothiazide (Hydrodiuril Tab*) 12.5 mg PO DAILY [facility] Last Admin: 07/14/19 09:52 Dose: 12.5 mg Iron Sucrose 200 mg/ Sodium (Chloride) 110 mls @ 110 mls/hr IVPB DAILY [facility] Stop: 07/18/19 09:59 Last Admin: 07/14/19 12:43 Dose: 110 mls/hr Lisinopril (Prinivil Tab*) 20 mg PO DAILY [facility] Last Admin: 07/14/19 09:52 Dose: 20 mg Magnesium Hydroxide (Milk Of Magnesia Liq*) 30 ml PO Q6H PRN PRN Reason: CONSTIPATION Pantoprazole Sodium (Protonix Iv*) 40 mg IV BID [facility] Senna (Senokot 8.6 Mg Tab*) 1 tab PO BEDTIME [facility] Vital Signs - 8 hr 07/14/19 07/14/19 09:54 11:15 Temperature 98.2 F Pulse Rate 87 78 Respiratory 18 Rate Blood Pressure 136/65 (mmHg) O2 Sat by Pulse 100 Oximetry Oxygen Devices in Use Now: Nasal Cannula Appearance: Well developed older gentleman, appears pale. In no acute distress. Eyes: No Scleral Icterus, PERRLA Ears/Nose/Mouth/Throat: NL Teeth, Lips, Gums, Clear Oropharnyx, Mucous Membranes Moist Neck: NL Appearance and Movements; NL JVP, Trachea Midline Respiratory: Symmetrical Chest Expansion and Respiratory Effort, Clear to Auscultation Cardiovascular: NL Sounds; No Murmurs; No JVD, RRR, - - trace non-pitting edema Abdominal: NL Sounds; No Tenderness; No Distention Lymphatic: No Cervical Adenopathy Extremities: No Clubbing, Cyanosis, - - trace non pitting BLE edema Skin: No Rash or Ulcers, No Nodules or Sclerosis Neurological: Alert and Oriented x 3 Lines/Tubes/Other Access: Clean, Dry and Intact Peripheral IV Result Diagrams: 07/14/19 05:15 07/14/19 05:15 Additional Lab and Data: Lab Results 07/13/19 Range/Units 19:49 WBC 8.6 (3.5-10.8) 10^3/uL RBC 3.91 L (4.18-5.48) 10^6 /uL Hgb 7.9 L (14.0-18.0) g/dL Hct 26 L (42-52) % MCV 68 L (80-94) fL MCH 20 L (27-31) pg MCHC 30 L (31-36) g/dL RDW 21 H (10-15) % Plt Count 211 (150-450) 10^3/uL MPV 8.8 (7.4-10.4) fL Neut % (Auto) 52.9 % Lymph % (Auto) 33.2 % [place] % (Auto) 11.8 % Eos % (Auto) 1.6 % Baso % (Auto) 0.5 % Absolute Neuts (auto) 4.6 (1.5-7.7) 10^3/ul Absolute Lymphs (auto) 2.9 (1.0-4.8) 10^3/ul Absolute Monos (auto) 1.0 H (0-0.8) 10^3/ul Absolute Eos (auto) 0.1 (0-0.6) 10^3/ul Absolute Basos (auto) 0.0 (0-0.2) 10^3/ul Absolute Nucleated RBC 0.0 10^3/ul Nucleated RBC % 0.1 Microbiology and Other Data: Microbiology 07/13/19 20:34 Stool Occult Blood (NAHOMI) - Final Stool Assess/Plan/Problems-Billing Assessment: This is an 88 year old male with a past medical history of afib, etoh abuse and CHF who was admitted on 07/13/19 for symptomatic anemia. - Patient Problems (1) Anemia Current Visit: No Status: Acute Code(s): D64.9 - ANEMIA, UNSPECIFIED SNOMED Code(s): 650610704 Comment: -Has had insidious blood loss since 12/02 with a significant drop sometime since March of this year. Admitted with lightheadedness, shortness of breath with exertion and palpitations. However he is normotensive and not tachycardic. Because of this reason, opted not to transfuse and instead ordered iron sucrose IV x 5 days. -GI consult with Dr. Hernandez to possibly perform endoscopy tomorrow. Feel bleeding may be a reult of daily ETOH use. Guiac negative. Vitamin B12 and folate normal. (2) Alcohol abuse Current Visit: No Status: Acute Code(s): F10.10 - ALCOHOL ABUSE, UNCOMPLICATED SNOMED Code(s): 36130603 Comment: -Drinks three shots of black velvet each day. Has shown no signs of withdrawal. Will order PRN lorazepam in case he begins to. -Feel that this is contributing to his anemia. Patient stated he could cut down to 1-1.5 drinks a day. (3) Atrial fibrillation Current Visit: No Status: Acute Priority: Medium Code(s): I48.91 - UNSPECIFIED ATRIAL FIBRILLATION SNOMED Code(s): 86880286 Comment: -HR regular upon auscultation. Rate controlled with digoxin only. Hold apixaban due to potential bleed. (4) Diabetes Current Visit: No Status: Acute Code(s): E11.9 - TYPE 2 DIABETES MELLITUS WITHOUT COMPLICATIONS SNOMED Code(s): 16393987 Comment: -Hold metformin. Fingersticks AC with SS lispro. (5) COPD (chronic obstructive pulmonary disease) Current Visit: No Status: Chronic Priority: Medium Code(s): J44.9 - CHRONIC OBSTRUCTIVE PULMONARY DISEASE, UNSPECIFIED SNOMED Code(s): 13410940 Comment: -On 2L NC nocturnally and PRN at home, on 2L here -No evidence of exacerbation. -Not on an inhalers at home. (6) DVT prophylaxis Current Visit: No Status: Acute Priority: Medium Code(s): SBH1837 - SNOMED Code(s): 537076685 Comment: -AC on hold due to potential bleed. (7) Full code status Current Visit: Yes Status: Acute Code(s): Z78.9 - OTHER SPECIFIED HEALTH STATUS SNOMED Code(s): 386175434 Status and Disposition: Condition: Fair Disposition: Admit inpatient. Attending: Yesenia Martínez
[2019-07-14] MEDS ORDERED: LORazepam TAB(*) 0.5 MG PO PRN (16:26)
[2019-07-14] MEDS ORDERED: Dextrose 50% VIAL 50 ml IV PUSH PRN (16:32)
[2019-07-14] MEDS ORDERED: Iodixanol* (CONTRAST) 320 MG/ML 100 ML SDV IV ONE (18:31)
[2019-07-14] MEDS: Pantoprazole IV* 40 MG IV SCH (20:29)
[2019-07-14] MEDS: Senna TAB 8.6 mg* TAB PO SCH (20:29)
[2019-07-14] MEDS: Atorvastatin* 10 MG TAB PO SCH (20:30)
[2019-07-15 00:04] LABS: Influenza A Molecular NEGATIVE (Negative); Influenza B Molecular NEGATIVE (Negative)
[2019-07-15 00:06] LABS: Calcium 9.1 mg/dL (8.6-10.3); EGFR African American 142.5 (>60); EGFR Non-African American 117.8 (>60); Magnesium 1.5 mg/dL (1.9-2.7); Potassium 3.9 mmol/L (3.5-5.0)
[2019-07-15] MEDS ORDERED: Magnesium Sulfate 2 GM IV* 2 GM/50 ML BAG IVPB ONE (00:21)
[2019-07-15 06:37] LABS: ABS Eosinophils 0.1 10^3/ul (0-0.6); ABS Lymphocytes 1.1 10^3/ul (1.0-4.8); ABS Monocytes 0.9 10^3/ul (0-0.8); ABS Neutrophils 4.5 10^3/ul (1.5-7.7); Eosinophil % 1.7 %; Hematocrit 23 % (42-52); Hemoglobin 7.1 g/dL (14.0-18.0); Lymphocyte % 17.2 %; Mean Corpuscular HGB Conc 30 g/dL (31-36); Mean Corpuscular Hemoglobin 21 pg (27-31); Mean Corpuscular Volume 68 fL (80-94); Mean Platelet Volume 8.8 fL (7.4-10.4); Nucleated Red Blood Cells % 0.1; Platelet Count 179 10^3/uL (150-450); Red Blood Count 3.46 10^6 /uL (4.18-5.48); Red Cell Distribution Width 21 % (10-15); White Blood Count 6.6 10^3/uL (3.5-10.8)
[2019-07-15 06:46] LABS: Albumin 3.5 g/dL (3.2-5.2); Albumin/Globulin Ratio 1.8 (1-3); BUN/Creatinine Ratio 23.3 (8-20); Calcium 8.9 mg/dL (8.6-10.3); EGFR African American 153.5 (>60); EGFR Non-African American 126.9 (>60); Magnesium 1.9 mg/dL (1.9-2.7); Total Protein 5.5 g/dL (6.4-8.9)
[2019-07-15] MEDS: Insulin LISPRO* 1 UNITS UNIT SUBCUT SCH ×3 (08:12→17:22)
--- NOTE | 2019-07-15 10:24 | PN ---
Subjective Date of Service: 07/15/19 Interval History: Patient reported feeling similar as yesterday. Denied palpitations, lightheadedness or shortness of breath at rest but would experience it with exertion. Continuing to deny chest pain, abdominal pain, nausea, vomiting. Remains pale. HH has continued to drop, though not precipitously. EDG performed today by Dr. Hernandez which revealed mild esophagitis. Family History: Unchanged from Admission Social History: Unchanged from Admission Past Medical History: Unchanged from Admission Objective Active Medications: Atorvastatin Calcium (Lipitor*) 10 mg PO BEDTIME [facility] Last Admin: 07/14/19 20:30 Dose: 10 mg Dextrose (Dextrose 50% Vial 50 Ml*) 25 ml IV PUSH .FOR FS < 60 - SS PRN PRN Reason: FS < 60 Digoxin (Lanoxin Tab*) 0.125 mg PO DAILY [facility] Last Admin: 07/14/19 09:54 Dose: 0.125 mg Docusate Sodium (Colace Cap*) 100 mg PO BID PRN PRN Reason: CONSTIPATION Famotidine (Pepcid Tab*) 20 mg PO DAILY [facility] Last Admin: 07/14/19 09:53 Dose: 20 mg Hydrochlorothiazide (Hydrodiuril Tab*) 12.5 mg PO DAILY [facility] Last Admin: 07/14/19 09:52 Dose: 12.5 mg Iron Sucrose 200 mg/ Sodium (Chloride) 110 mls @ 110 mls/hr IVPB DAILY [facility] Stop: 07/18/19 09:59 Last Admin: 07/14/19 12:43 Dose: 110 mls/hr Insulin Human Lispro (Humalog*) 0 units SUBCUT [facility]; Protocol Last Admin: 07/15/19 08:12 Dose: Not Given Lisinopril (Prinivil Tab*) 20 mg PO DAILY [facility] Last Admin: 07/14/19 09:52 Dose: 20 mg Lorazepam (Ativan Tab(*)) 0.5 mg PO BID PRN PRN Reason: ANXIETY Magnesium Hydroxide (Milk Of Magnesia Liq*) 30 ml PO Q6H PRN PRN Reason: CONSTIPATION Pantoprazole Sodium (Protonix Iv*) 40 mg IV BID [facility] Last Admin: 07/14/19 20:29 Dose: 40 mg Senna (Senokot 8.6 Mg Tab*) 1 tab PO BEDTIME [facility] Last Admin: 07/14/19 20:29 Dose: 1 tab Vital Signs - 8 hr 07/15/19 07/15/19 07/15/19 03:06 07:15 08:00 Temperature 97.6 F 97.5 F Pulse Rate 72 58 Respiratory 14 16 18 Rate Blood Pressure 109/61 119/55 (mmHg) O2 Sat by Pulse 96 99 Oximetry Oxygen Devices in Use Now: Nasal Cannula Appearance: Well developed older gentleman, pale. No acute distress. Eyes: No Scleral Icterus, PERRLA Ears/Nose/Mouth/Throat: NL Teeth, Lips, Gums, Mucous Membranes Moist Neck: NL Appearance and Movements; NL JVP, Trachea Midline Respiratory: Symmetrical Chest Expansion and Respiratory Effort, Clear to Auscultation Cardiovascular: NL Sounds; No Murmurs; No JVD, No Edema, - - Heart rate irregular Abdominal: NL Sounds; No Tenderness; No Distention Lymphatic: No Cervical Adenopathy Extremities: No Edema, No Clubbing, Cyanosis Skin: No Rash or Ulcers, No Nodules or Sclerosis, - - Multiple bilateral lower extremities. Neurological: Alert and Oriented x 3 Lines/Tubes/Other Access: Clean, Dry and Intact Peripheral IV Result Diagrams: 07/15/19 05:55 07/15/19 05:55 Additional Lab and Data: Lab Results 07/13/19 Range/Units 19:49 WBC 8.6 (3.5-10.8) 10^3/uL RBC 3.91 L (4.18-5.48) 10^6 /uL Hgb 7.9 L (14.0-18.0) g/dL Hct 26 L (42-52) % MCV 68 L (80-94) fL MCH 20 L (27-31) pg MCHC 30 L (31-36) g/dL RDW 21 H (10-15) % Plt Count 211 (150-450) 10^3/uL MPV 8.8 (7.4-10.4) fL Neut % (Auto) 52.9 % Lymph % (Auto) 33.2 % [place] % (Auto) 11.8 % Eos % (Auto) 1.6 % Baso % (Auto) 0.5 % Absolute Neuts (auto) 4.6 (1.5-7.7) 10^3/ul Absolute Lymphs (auto) 2.9 (1.0-4.8) 10^3/ul Absolute Monos (auto) 1.0 H (0-0.8) 10^3/ul Absolute Eos (auto) 0.1 (0-0.6) 10^3/ul Absolute Basos (auto) 0.0 (0-0.2) 10^3/ul Absolute Nucleated RBC 0.0 10^3/ul Nucleated RBC % 0.1 Microbiology and Other Data: Microbiology 07/13/19 20:34 Stool Occult Blood (NAHOMI) - Final Stool Assess/Plan/Problems-Billing Assessment: This is an 88 year old male with a past medical history of afib, etoh abuse and CHF who was admitted on 07/13/19 for symptomatic anemia. - Patient Problems (1) Anemia Current Visit: No Status: Acute Code(s): D64.9 - ANEMIA, UNSPECIFIED SNOMED Code(s): 114145598 Comment: -Has had insidious blood loss since 12/02 with a significant drop sometime since March of this year. Admitted with lightheadedness, shortness of breath with exertion and palpitations, symptoms persist with exertion. -Transfused with one unit PRBC due to continued decline of HH. Continue iron sucrose IV x 5 days. -GI consult with Dr. Hernandez. Guiac negative. Vitamin B12 and folate normal. Spoke with Dr. Lowery, vascular surgeon at [facility] about safety of scoping patient RE: 6cm iliac artery aneurysm, she felt that EGD would be safe to perform. EGD revealed mild esophagitis. She did not feel comfortable performing colonoscopy due to possibility of disturbing the aneuryms and possibly causing a rupture. Dr. Lowery did not feel that an emergent transfer to [facility] to repair anuerysm was necessary, but suggested an urgent follow up at her office to have it repaired within the month. -New differential includes possible GI cancer as source of anemia. (2) Aneurysm of left iliac artery Current Visit: Yes Status: Acute Code(s): I72.3 - ANEURYSM OF ILIAC ARTERY SNOMED Code(s): 20079784 Comment: -CT scan revealed a 6cm aneurysm that has grown significantly in size since imaging 3 years ago. Patient stated he was hitherto unaware of its presence. Dr. Lowery from [facility] contacted, felt it did not require an emergent transfer as there is no evidence of a leak and BP is under good control. However she wanted him to be referred to her office as an outpatient to have it repaired within a month. (3) Metastatic cancer to bone Current Visit: Yes Status: Acute Code(s): C79.51 - SECONDARY MALIGNANT NEOPLASM OF BONE SNOMED Code(s): 55454566 Comment: -CT scan showed an incidental finding of a 2cm sclerotic lesion to the left acetabulum which is suspicious for metastatic cancer. Will refer to oncology upon discharge for further evaluation and follow up as patient has no previous history of cancer. (4) Alcohol abuse Current Visit: No Status: Acute Code(s): F10.10 - ALCOHOL ABUSE, UNCOMPLICATED SNOMED Code(s): 56225308 Comment: -Drinks three shots of black velvet each day. Has shown no signs of withdrawal. Will order PRN lorazepam in case he begins to. -Feel that this is contributing to his anemia. Patient stated he could cut down to 1-1.5 drinks a day. (5) Atrial fibrillation Current Visit: No Status: Acute Priority: Medium Code(s): I48.91 - UNSPECIFIED ATRIAL FIBRILLATION SNOMED Code(s): 18845264 Comment: -HR regular upon auscultation. Rate controlled with digoxin only. Hold apixaban due to potential bleed. (6) Diabetes Current Visit: No Status: Acute Code(s): E11.9 - TYPE 2 DIABETES MELLITUS WITHOUT COMPLICATIONS SNOMED Code(s): 53222856 Comment: -Hold metformin. Fingersticks AC with SS lispro. (7) COPD (chronic obstructive pulmonary disease) Current Visit: No Status: Chronic Priority: Medium Code(s): J44.9 - CHRONIC OBSTRUCTIVE PULMONARY DISEASE, UNSPECIFIED SNOMED Code(s): 72605541 Comment: -On 2L NC nocturnally and PRN at home, on 2L here -No evidence of exacerbation. -Not on an inhalers at home. (8) DVT prophylaxis Current Visit: No Status: Acute Priority: Medium Code(s): OBT8155 - SNOMED Code(s): 685263604 Comment: -AC on hold due to potential bleed. (9) Full code status Current Visit: Yes Status: Acute Code(s): Z78.9 - OTHER SPECIFIED HEALTH STATUS SNOMED Code(s): 133861206 Status and Disposition: Condition: Fair Disposition: Admit inpatient. Attending: Yesenia Martínez
[2019-07-15] MEDS: Iron Sucrose* 200 MG in NS 0.9% 100 ML* 100 ML IVPB SCH (10:26)
[2019-07-15] MEDS: Pantoprazole IV* 40 MG IV SCH ×2 (11:32→20:04)
[2019-07-15] MEDS ORDERED: fentaNYL* 50 MCG/ML 2 ML VIAL (100 MCG VIAL) ONE (12:18)
[2019-07-15] MEDS ORDERED: Midazolam* 1 MG/ML 10 ML VIAL (10 MG) ONE (12:19)
--- NOTE | 2019-07-15 13:44 | CONS ---
CC: Emely Murphy NP; Dr. Pawel Herring GASTROENTEROLOGY CONSULT REPORT: DATE OF CONSULT: 07/15/19 REQUESTING PROVIDER: Emely Murphy NP PRIMARY CARE PROVIDER: Dr. Pawel Herring. REASON FOR CONSULT: Acute on chronic anemia with iron deficiency. HISTORY OF PRESENT ILLNESS: Mr. Pearl is an 88-year-old gentleman with a history of COPD on intermittent nasal cannula oxygen at home, non-insulin- dependent diabetes, AFib, on Eliquis, and vascular disease, who is admitted with progressive shortness of breath and weakness. Mr. Pearl was admitted to the hospital on 07/13/19. He reported generalized weakness and increasing shortness of breath particularly with exertion at home. No other complaints on admission. Labs notable for a hemoglobin of 7.9 and hematocrit of 26. This morning's blood work demonstrates a hemoglobin of 7.1 and hematocrit of 23. MCV is very low at 68. Iron studies also low with a T sat of 5% and a ferritin of 11.4.The patient last received his Eliquis on 07/14 in the morning. He has not had any complaints of overt bleeding. Hemoccult stool negative. CT abdomen and pelvis was performed, which demonstrated small left pleural effusion and moderate right pleural effusion, abdominal aortic aneurysm and left common iliac artery aneurysm, and new 2 cm sclerotic lesion in the left acetabulum suspicious for metastatic disease. No gastrointestinal findings noted. On interview, Mr. Pearl reports some mild upper abdominal discomfort with palpation. Reports that he used to have reflux, although this has not been an active issue. He states that when he eats fast sometimes food feels as if it is backing up in his esophagus. He takes efforts to eat slowly. He has a bowel movement every other day. He reports seeing normal stool at those times. Denies seeing any black or bloody stools. No hematuria or severe epistaxis. Denies any weight loss. Last colonoscopy was at age 69. No polyps. PAST MEDICAL HISTORY: 1. COPD. 2. Atrial fibrillation on Eliquis. 3. Diabetes. 4. History of lung scarring, status post right lower lobe wedge resection. 5. Hypertension. 6. Osteoarthritis. PAST SURGICAL HISTORY: Right hip surgery, appendectomy, cholecystectomy, right - sided hernia repair. HOME MEDICATIONS: 1. Metformin 500 mg daily. 2. Lisinopril and hydrochlorothiazide daily. 3. Lovastatin 40 mg daily. 4. Pepcid 20 mg daily. 5. Eliquis 5 mg twice daily. 6. Digoxin 0.125 daily. ALLERGIES: No known drug allergies. FAMILY HISTORY: No known GI or liver disease. SOCIAL HISTORY: The patient drinks several alcoholic beverages per day. . Former smoker x40 years. REVIEW OF SYSTEMS: A complete 12 point review of systems is negative except as mentioned above. His breathing continues to feel short with exertion, although he is comfortable at rest. PHYSICAL EXAM: Vital Signs: Afebrile, heart rate 64, blood pressure 128/61, 100% on 2 L of oxygen. General: Pleasant, elderly gentleman. Hard of hearing. No acute distress. HEENT: Mucous membranes moist. Cardiovascular: Irregularly irregular rhythm. Not tachycardic. Pulmonary: Breathing comfortably. Lungs clear in anterior lung juarez. Abdomen: Soft and nondistended. Mild tenderness to upper abdomen. No guarding or rebound tenderness. Extremities: Lower extremity edema. Skin: Scattered ecchymoses. DIAGNOSTIC STUDIES/LAB DATA: Labs reviewed in [facility]. Hemoglobin 7.9 on admission and now down to 7.1, which correlates with a hematocrit of 23. MCV 68. Reviewing prior labs, it appears that the patient's hemoglobin was in the 12 to 13 range from September of 2017. His hemoglobin in October 2018 was 12.4. Hemoglobin in March was 10.3. No prior iron studies before this visit. Current iron studies demonstrate iron saturation of 5 and ferritin of 11.4. Troponin initially 0.08 on admission with decrease to 0.03. LFTs within normal range. Folate normal. B12 borderline low at 229. Imaging: CT abdomen and pelvis reviewed. No gastrointestinal findings. There is note made of moderate right and small left pleural effusions as well as a 2 cm sclerotic lesion in the left acetabulum suspicious for metastatic disease. There was a 4.4 x 3.8 abdominal aortic aneurysm without leak. There was also aneurysmal dilation of the left common iliac artery measuring 6 cm, which was previously 4.3 cm. No leak from this aneurysm. EKG from 07/13/19 without any acute findings. Possible mild ST segment depression changes in the anterior leads, which seemed to have been present on prior EKGs as well. No ST segment elevation. IMPRESSION AND RECOMMENDATIONS: Mr. Pearl is an 88-year-old gentleman with a history of chronic obstructive pulmonary disease, diabetes, atrial fibrillation on Eliquis, and aortic and iliac aneurysms, who is admitted with progressive shortness of breath and weakness. GI consulted for severe iron deficiency anemia. Labs demonstrate acute on chronic iron- deficiency anemia of unclear etiology. No overt bleeding per the patient's report. The patient does have mild epigastric tenderness on exam as well as history of reflux with intermittent dysphagia. The CT demonstrated a new sclerotic lesion in the acetabulum concerning for metastatic disease. Given this constellation of symptoms and findings, I think it is appropriate to pursue upper endoscopy to rule-out UGI source of anemia. Discussed with the patient that he is high risk for the procedure, but he wishes to proceed. Will plan to use minimal sedation during the procedure. He is in agreement with reversal of DNR status for several hours post-procedure. Anticoagulation will continue to be held. The patient has been placed on an IV PPI, which I think is appropriate to continue for now. He has been kept n.p.o. in anticipation of the procedure. He received IV iron during this hospitalization and is currently receiving 1 unit of blood for Hgb <8 in setting of cardiovascular disease. Thank you for this consult. GI will continue to follow. [id number]/[facility] #: [id number] NELDA
[2019-07-15] MEDS: Famotidine TAB* 20 MG PO SCH (14:16)
[2019-07-15] MEDS: Hydrochlorothiazide TAB* 25 MG PO SCH (14:16)
[2019-07-15] MEDS: Lisinopril TAB* 10 MG PO SCH (14:17)
[2019-07-15] MEDS: Digoxin TAB* 0.125 MG PO SCH (14:17)
--- NOTE | 2019-07-15 17:49 | PRO ---
CC: Emely Murphy NP; Dr. Pawel Herring* PROCEDURE REPORT: DATE OF PROCEDURE: 07/15/19 - inpatient, room 438-01 PROCEDURE: EGD with biopsy. REFERRING PROVIDERS: Emely Murphy NP, and Dr. Pawel Herring. INDICATIONS: Acute on chronic iron deficiency anemia. MEDICATIONS GIVEN: 1. Midazolam 3 mg IV. 2. Fentanyl 25 mcg IV. DESCRIPTION OF PROCEDURE: Full disclosure of risks was reviewed with the patient as detailed on the consent form. The patient was placed in the left lateral decubitus position and monitored with continuous pulse oximetry, capnography, interval blood pressure monitoring, and direct observation. A bite -block was placed between the patient's teeth. An adult gastroscope was then inserted into the patient's mouth and advanced down the esophagus, into the stomach, and into the distal duodenum. Findings and interventions are described below. FINDINGS: Esophagus was a tubular structure without varices. The distal esophagus was notable for a widely patent Schatzki ring as well as very minimal esophagitis. Scope was easily advanced into the stomach. Stomach was examined in the forward and retroflexed views. Gastric mucosa was mildly erythematous in the antrum. No erosions or ulcers. No AVMs. No fresh or old blood. Biopsy obtained from antrum for CLOtest given chronic iron deficiency anemia. Scope was then advanced into the duodenum to at least the third portion. Duodenal mucosa was normal in appearance. No AVMs. No erosions or ulcers. Gil bilious fluid seen without any fresh or old blood. Biopsies were obtained from duodenum to rule-out celiac given the iron deficiency anemia. Scope was then withdrawn from the patient. The patient tolerated the procedure well and was recovered in the GI recovery area. IMPRESSION: 1. Complete upper endoscopy to distal duodenum. 2. Widely patent Schatzki ring. Not dilated as the anticoagulation was given yesterday morning. I would prefer a 2-day hold on anticoagulation for elective dilation. Additionally, this is minimally symptomatic for the patient. 3. Very minimal esophagitis. 4. Mild gastric antral erythema. Unlikely of clinically significance. 5. No source of iron deficiency anemia identified. FOLLOWUP: 1. Await pathology. 2. Long discussion was had with the patient's family after the procedure. The patient is not having any overt bleeding, although his significant iron deficiency anemia raises concern for possible slow GI source of blood loss which has likely been exacerbated by the anticoagulation. The CT also commented on a sclerotic lesion in the acetabulum raising concern for malignancy. The patient's last colonoscopy was at age 69. He has not had polyps in the past. Reviewed that the options include monitoring off anticoagulation versus proceeding with colonoscopy assuming the patient is willing to undergo this procedure. The patient's family feels strongly that he would like to have this procedure, which we can confirm once he is more awake. I am a bit hesitant to pursue a colonoscopy before Vascular Surgery discusses with the patient the options surrounding his enlarging iliac aneurysm. As the patient is stable without overt bleeding, I think we have time to have this consultation performed in order to determine if the patient should have repair of this large aneurysm first. Likely, the [place] need [place] this consultation. Would hold on prepping for colonoscopy for now while this issue is explored further. 3. Hold on anticoagulation for now. 4. Continue to monitor CBC regularly. 5. Recommend omeprazole or pantoprazole once daily given minimal esophagitis. 6. If the patient's dysphagia continues to remain an issue, the I would plan for esophageal dilation of Schatzki ring off anticoagulation in the outpatient setting. Thank you very much for this consult. GI will continue to follow along. [id number]/[facility] #: [id number] NELDA
[2019-07-15] MEDS: Atorvastatin* 10 MG TAB PO SCH (20:03)
[2019-07-15] MEDS: Senna TAB 8.6 mg* TAB PO SCH (20:03)
[2019-07-15] MEDS ORDERED: Benzonatate CAP* 100 MG PO PRN (23:48)
[2019-07-16 06:19] LABS: ABS Eosinophils 0.1 10^3/ul (0-0.6); ABS Lymphocytes 1.2 10^3/ul (1.0-4.8); ABS Monocytes 1.1 10^3/ul (0-0.8); ABS Neutrophils 4.3 10^3/ul (1.5-7.7); Eosinophil % 1.4 %; Hematocrit 27 % (42-52); Hemoglobin 8.2 g/dL (14.0-18.0); Lymphocyte % 17.4 %; Mean Corpuscular HGB Conc 31 g/dL (31-36); Mean Corpuscular Hemoglobin 21 pg (27-31); Mean Corpuscular Volume 69 fL (80-94); Mean Platelet Volume 8.3 fL (7.4-10.4); Nucleated Red Blood Cells % 0.1; Platelet Count 192 10^3/uL (150-450); Red Blood Count 3.83 10^6 /uL (4.18-5.48); Red Cell Distribution Width 22 % (10-15); White Blood Count 6.7 10^3/uL (3.5-10.8)
[2019-07-16 06:32] LABS: BUN/Creatinine Ratio 19.7 (8-20); EGFR African American 150.6 (>60); EGFR Non-African American 124.5 (>60); Potassium 3.8 mmol/L (3.5-5.0)
[2019-07-16] MEDS: Insulin LISPRO* 1 UNITS UNIT SUBCUT SCH ×2 (08:44→12:53)
[2019-07-16] MEDS: Pantoprazole IV* 40 MG IV SCH (08:58)
[2019-07-16] MEDS: Hydrochlorothiazide TAB* 25 MG PO SCH (09:00)
[2019-07-16] MEDS: Iron Sucrose* 200 MG in NS 0.9% 100 ML* 100 ML IVPB SCH (09:00)
[2019-07-16] MEDS: Lisinopril TAB* 10 MG PO SCH (09:01)
[2019-07-16] MEDS: Digoxin TAB* 0.125 MG PO SCH (09:01)
[2019-07-16] MEDS: Famotidine TAB* 20 MG PO SCH (09:01)
--- NOTE | 2019-07-16 09:28 | ECHO ---
*[facility]* [place] [address] Fax #: [phone] Transthoracic Echocardiogram Patient: Anurag Pearl : 1930 Study Date: 07/16/2019 Age: 88 Gender: M HR: 78 bpm Height: 74 in /188 cm BSA: 1.87 m^2 Weight: 149.7 lb /68 kg BMI: 19.3 kg/m^2 *Lease Out Man: * Nya Lipscmob [facility] *Referring Physician: * Ventura Martínez *Reading Physician: * Joe Garcia MD Indications: Congestive Heart Failure. History: Atrial fibrillation. Coronary artery disease. Chronic obstructive pulmonary disease. Risk factors: Diabetes mellitus. Labs, prior tests, procedures, and surgery: Surgery. Right lower lobe wedge resection. Conclusions Summary: - Left ventricle: The cavity size is normal. Wall thickness is mildly increased. Systolic function is normal. The estimated ejection fraction is 55-60%. Wall motion is normal; there are no regional wall motion abnormalities. - Right ventricle: The cavity size is moderately dilated. Systolic function is mildly reduced. Systolic pressure is moderately increased. - Left atrium: The atrium is mildly dilated. - Right atrium: The atrium is severely dilated. - Tricuspid valve: There is moderate regurgitation. Recommendations: Compared to prior study from 07/2015, tricuspid regurgitation was previously mild, pasp was previously mild, right ventricle function was previously normal. Study data: Transthoracic echocardiogram. Procedure: Transthoracic echocardiography was performed. Image quality was fair. Complete 2D, spectral Doppler, and color flow Doppler. Location: Bedside. Patient status: Inpatient. Patient room number: 438. Rhythm: Atrial fibrillation. Findings Left ventricle: The cavity size is normal. Wall thickness is mildly increased. Systolic function is normal. The estimated ejection fraction is 55-60%. Wall motion is normal; there are no regional wall motion abnormalities. Left ventricular diastolic function parameters are indeterminate. Right ventricle: The cavity size is moderately dilated. Systolic function is mildly reduced. Systolic pressure is moderately increased. Left atrium: The atrium is mildly dilated. Right atrium: The atrium is severely dilated. Mitral valve: The leaflets are mildly thickened. There is no evidence of stenosis. There is mild regurgitation. Aortic valve: The valve is trileaflet. The leaflets are mildly thickened. There is no evidence of stenosis. There is trace to mild regurgitation. Tricuspid valve: The leaflets are normal thickness. There is no evidence of stenosis. There is moderate regurgitation. Pulmonic valve: The leaflets are normal thickness. There is no evidence of stenosis. There is trace to mild regurgitation. Aorta: Aortic root: The aortic root is upper normal in size. Ascending aorta: The ascending aorta is mildly dilated. Aortic arch: The aortic arch is appears normal. Pericardium: There is no significant pericardial effusion. Pulmonary arteries: Not well visualized. Systemic veins: Inferior vena cava: The vessel is dilated. There is (>= 50%) respiratory change in the IVC dimension. Measurements Left ventricle Value Ref Aortic valve continued Value Ref SUSIE, LAX 5.3 cm 4.2 - Mean grad, S 4.4 mm Hg ----- 5.8 Peak grad, S 6.0 mm Hg ----- ESD, LAX 3.5 cm 2.5 - LVOT/AV, VTI ratio 0.51 ----- 4.0 CRISTOBAL, VTI 1.81 cm^2 ----- FS, LAX 34 % 25 - 43 CRISTOBAL, Vmax 1.92 cm^2 ----- PW, ED, LAX 1.0 cm 0.6 - 1.0 Mitral valve Value Ref FS 34 % 25 - 43 Peak E 0.73 m/sec ----- PW, ED 1.0 cm 0.6 - Peak A 0.04 m/sec ----- 1.0 Decel time 313 ms ----- E', lat manda, TDI 11.0 cm/sec >=10.0 Peak grad, D 2.1 mm Hg - ---- E/e', lat manda, TDI 5 -------- Peak E/A ratio 16.51 ---- - LVOT Value Ref Pulmonic valve Value Ref Diam, S 2.13 cm -------- Peak v, S 0.8 m/sec ----- Area 3.6 cm^2 -------- Peak grad, S 2.6 mm Hg ----- Peak david, S 0.66 m/sec -------- ME peak v 1.31 m/sec ----- VTI, S 11.9 cm -------- ME peak grad 7 mm Hg ----- Peak grad, S 2 mm Hg -------- ME grad, ED 7 mm Hg ----- Mean grad, S 1 mm Hg -------- Tricuspid valve Value Ref Ventricular septum Value Ref TR peak v (H) 3.8 m/sec <=2.8 IVS, ED (H) 1.1 cm 0.6 - Peak RV-RA grad, S 58 mm Hg ----- 1.0 Aortic root Value Ref Right ventricle Value Ref Root diam 3.6 cm <4.0 SUSIE, LAX 3.4 cm -------- SUSIE minor ax, A4C (H) 4.2 cm 1.9 - Ascending aorta Value Ref mid 3.5 AAo AP diam, S 3.6 cm ----- Pressure, S 66 mm Hg -------- Aortic arch Value Ref Left atrium Value Ref Arch diam 2.7 cm ----- LA ID 4.7 cm -------- SI dim ES, LAX 4.7 cm -------- Decending aorta Value Ref ML dim, A4C 4.0 cm -------- Candie peak david 0.58 m/sec ----- SI dim, A4C 5.9 cm -------- Vol, ES, 2-p 63 ml -------- Pulmonary artery Value Ref Vol/bsa, ES, 2-p 34 ml/m^2 16 - 34 Pressure, S 63.4 mm Hg ----- Right atrium Value Ref Inferior vena cava Value Ref SI dim, ES (H) 6.0 cm 3.4 - Diam 2.7 cm ----- 5.3 ML dim, ES, A4C (H) 5.9 cm 2.6 - 4.4 Estimated RAP 8 mm Hg -------- Aortic valve Value Ref Manda diam, S 2.2 cm 2.0 - 3.2 Peak v, S 1.22 m/sec -------- VTI, S 23.4 cm -------- Legend: (L) and (H) margie values outside specified reference range. Prepared and electronically signed by Joe Garcia MD 07/16/2019 09:27
[2019-07-16 12:39] VITALS: BP 136/70
--- NOTE | 2019-07-17 04:10 | DS ---
CC: Dr. Pawel Herring* DISCHARGE SUMMARY: DATE OF ADMISSION: 07/14/19 DATE OF DISCHARGE: 07/16/19 PROVIDER: Emely Murphy NP ATTENDING PHYSICIAN: Dr. Yesenia Martínez* (dictated by Emely Murphy NP). PRIMARY CARE PHYSICIAN: Dr. Pawel Herring. CONSULTING PHYSICIAN: Dr. Hernandez. 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 SECONDARY DIAGNOSES: 1. Hypertension. 2. Atrial fibrillation. 3. Diabetes. 4. Lower extremity edema. PROCEDURES: EGD performed by Dr. Hernandez showed a widely patent Schatzki ring, not dilated as anticoagulation was given yesterday morning, very minimal esophagitis, mild gastric antral erythema unlikely of clinical significance and no source of iron deficiency anemia notified. DIAGNOSTIC STUDIES: CT of the abdomen and pelvis it showed moderate right and small left pleural effusion with atelectasis. Atherosclerosis, abdominal aortic aneurysm, greatest traverse dimensions of 4.4 x 3.8 cm above the bifurcation without dissection or leak. Additional aneurysmal dilation of the left common iliac artery measuring 6 cm, traversely previous 4.3 which has progressed, no leak. There is a 2 cm sclerotic lesion anteriorly in the left acetabulum suspicious for metastatic disease and no other acute disease seen. A chest PA and lateral views showed small right pleural effusion, COPD with findings consistent with old granulomatous disease and transthoracic echocardiogram shows ejection fraction of 55% to 60% without regional wall abnormalities, right ventricle moderately dilated, systolic function is mildly reduced, systolic pressure moderately increased, left atria is mildly dilated, right atria severely dilated, mitral valve leaflets are mildly thickened with no evidence of stenosis and mild regurgitation, aortic valve is a trileaflet, leaflets are mildly thickened, no evidence of stenosis, there is trace to mild regurgitation. Tricuspid valve has moderate regurgitation, pulmonic valve has trace mild regurgitation. Ascending aorta is mildly dilated. PERTINENT LAB DATA: RBC 3.83, hemoglobin 8.2, hematocrit 27, and MCV 69, MCH 21 , RDW 22, retic count 1.6. Creatinine 0.61, glucose 135. Urine negative. Serology was negative for Influenza A or B. HISTORY OF PRESENT ILLNESS/HOSPITAL COURSE: This is an 88-year-old gentleman with a past medical history of COPD intermittently on nasal cannula oxygen at home, with a history of right lower lobe with resection for scarring and non- insulin dependent diabetes, and AFib, who came to the emergency room on . Initially presented with a 3 day history of increased work of breathing, generalized weakness, exercise intolerance, and without any obvious wheezing, cough, fever, chills, chest pain, nausea, vomiting, diarrhea or urinary symptoms. In the emergency room, EKG, chest x-ray was done, lab draws revealed significant anemia. Hemoglobin and hematocrit of 7.9, and 26. However, he was normotensive and not tachycardic. Looking back over trends, it was apparent that he had been mildly anemic for over a year but some time in the past 3 months his hemoglobin had dropped from 10.3 to 7.9 without clear cause. The patient had denied any melena or with no other sources of bleeding clearly identified. The patient was initiated on IV fluids. The next day all blood thinners were held. A blood anemia work up was performed which revealed a normal folate and B12; however iron was less than 20%, saturation was 5 and ferritin was 11.4. Due to the fact that he was asymptomatic initially, no transfusion happened, instead only opted to start IV iron infusions due to how low his stores were. CT scan was performed to look for any abdominal masses. However, incidentally found that there had an intervally increased left common iliac artery aneurysm which had been measuring over 4 cm 3 years prior and was now 6 cm. The patient stated he was previously unaware of this. Prior to undergoing an EGD, I spoke with Dr. Lowery who is a vascular surgeon at [facility] in order to make sure that it was safe to perform a procedure with such a large aneurysm and concerns for bursting; however, CT scan stated there was no leak. Dr. Lowery felt that it was safe to undergo EGD which he did the next day on the 07/15/19 and revealed mild esophagitis and a widely patent Schatzki ring but no ulcers or any other indication for iron deficiency anemia or acute bleed. It was of the opinion of myself with Dr. Hernandez that he would benefit from as colonoscopy, however, due to the size and the placement of the iliac aneurysm. she felt unsafe performing a colonoscopy in this facility should the aneurysm become disrupted or leak. Dr. Lowery did not feel that the patient required urgent transfer to the facility, however, stated that she would be happy to see the patient on an outpatient basis to repair the aneurysm within a month. Incidentally on the CT scan, it was also picked up that he had a 2 cm sclerotic lesion to the anterior left acetabulum that was suggestive of metastatic disease. The patient has no previous history of diagnosed cancer, though will refer to outpatient oncology for further workup. It is felt that it is likely his malignancy is related to GI tract which would contribute to his anemia, suggest that the patient will follow up with GI after the aneurysm repair. Today, H and H has increased. He continues to state that he feels fine as long as he is resting. Dizziness while walking has resolved. Family felt comfortable with taking him home with the idea of there being a followup shortly with Dr. Lowery. REVIEW OF SYSTEMS: A 11-point system review was performed which was positive for fatigue. Negative for melena, fever, chills, hematochezia and hemoptysis, shortness of breath, chest pain, palpitations, abdominal pain, nausea, vomiting or issues moving his bowels or bladder. PHYSICAL EXAMINATION: Vital Signs: Temperature 97.7, Fahrenheit, 79 pulse, 20 respirations, 97% on 2 L of oxygen which he wears at home, 136/70 blood pressure. General: This is a well-developed older gentleman, seen resting in bed, he is pale, though has more pink in his cheeks than yesterday. Cardiac: S1, S2 present. Heart rate regular. Lungs: No murmurs, gallops or rubs appreciated. Respiratory lungs clear throughout bilaterally in room air. Abdomen is soft, nontender, nondistended with positive bowel sounds x4. Musculoskeletal: Able to move all extremities. No clubbing, cyanosis of the digits. Neurologic: No focal deficits appreciated. Sensation intact to light touch. Skin is intact with no rashes or lesions. Psych: He is alert and oriented x3 with overt evidence of anxiety or depression. DISCHARGE PLAN: He may resume a regular diet with no strenuous activity suggested. He should avoid injury or compression to his lower abdomen and pelvis. He is to return to the hospital should he develop blood in his stools or vomit. If he becomes increasingly fatigued, short of breath, chest pain, palpitations, or any overt signs of bleeding. PLAN FOR EACH CONDITION: 1. Symptomatic anemia related to iron deficiency. The patient is to take ferrous gluconate once a day, recommended to take on an empty stomach, preferably with vitamin C rich food for best absorption. If patient does not appear to be actively bleeding at this time, should follow up with Dr. Brittney Ayala for a colonoscopy after his aneurysm repair with Dr. Lowery , also recommend follow up with Oncology as I feel that his bleed and anemia is secondary to a malignancy. 2. Left common iliac artery aneurysm measuring 6 cm, an appointment has been made with Dr. Lowery for 07/24/19 at noon for consultation for repair of the aneurysm in [facility]. Again the patient is to avoid injuring or compressing his abdomen. The patient and family is well aware of the serious nature of this aneurysm and that should it rupture, he is likely to not survive. 3. New finding of possible metastatic disease. The patient is as previously undiagnosed with cancer, recommended to follow up with Dr. Flores on an outpatient basis for further evaluation. 4. AFib. The patient is okay to continue his digoxin; however, he should hold the apixaban until this Tuesday07/20/19, due to the recent precipitous drop in his H and H. The patient and family are aware of the risk for stroke. 5. Hypertension. It is imperative that he have good blood pressure control in order to minimize the risk of his iliac aneurysm rupturing currently, but pressures have been well under control in the one teens. He should continue taking his lisinopril and hydrochlorothiazide. 6. Hyperlipidemia. Continue lovastatin. 7. Diabetes type 2. Continue metformin 500 mg p.o. daily. MEDICATIONS: To continue at discharge: 1. Metformin 500 mg p.o. daily. 2. Lisinopril/hydrochlorothiazide 20/12.5 mg 1 tablet p.o. daily. 3. Lovastatin 40 mg p.o. at bed time. 4. Famotidine 20 mg p.o. daily. 5. Apixaban 5 mg p.o. b.i.d. to start on Tuesday07/20/19. 6. Digoxin 0.125 mg p.o. daily. 7. Ferrous sulfate 325 mg p.o. daily. CONDITION UPON DISCHARGE: Fair. DISPOSITION: To home. TIME SPENT: Time spent on the patient is about 60 minutes with half of that spent [id number]. Emely Murphy, KYLAH [id number]/[facility] #: [id number] [facility] THROAT HOSPITALAlina
== END 2019-07-16 15:15 | disposition home or self-care (01) | DRG 375 ==
LOC: ED 16:38 → MEDTELE 07-14 05:04
PROVIDERS: ADMIT Internal Medicine; ATTEND Internal Medicine
PROC: 0DB78ZX Excision of Stomach, Pylorus, Via Natural or Artificial Opening Endoscopic, Diagnostic (ICD-10-PCS; principal; 2019-07-15)
PROC: 0DB98ZX Excision of Duodenum, Via Natural or Artificial Opening Endoscopic, Diagnostic (ICD-10-PCS; 2019-07-15)
PROC: 30233N1 Transfusion of Nonautologous Red Blood Cells into Peripheral Vein, Percutaneous Approach (ICD-10-PCS; 2019-07-15)
DX: C26.9 Malignant neoplasm of ill-defined sites within the digestive system (principal); C79.51 Secondary malignant neoplasm of bone; D50.8 Other iron deficiency anemias; D63.0 Anemia in neoplastic disease; I72.3 Aneurysm of iliac artery; E11.9 Type 2 diabetes mellitus without complications; J44.9 Chronic obstructive pulmonary disease, unspecified; I71.4 Abdominal aortic aneurysm, without rupture; I11.0 Hypertensive heart disease with heart failure; I50.9 Heart failure, unspecified; E78.00 Pure hypercholesterolemia, unspecified; H91.90 Unspecified hearing loss, unspecified ear; I48.91 Unspecified atrial fibrillation; I25.10 Atherosclerotic heart disease of native coronary artery without angina pectoris; M17.0 Bilateral primary osteoarthritis of knee; K22.2 Esophageal obstruction; K21.0 Gastro-esophageal reflux disease with esophagitis; F10.10 Alcohol abuse, uncomplicated; Y90.9 Presence of alcohol in blood, level not specified; E78.5 Hyperlipidemia, unspecified; Z97.4 Presence of external hearing-aid; Z87.891 Personal history of nicotine dependence; Z90.2 Acquired absence of lung [part of]
CPT/HCPCS: 36415; 71046; 74177; 80048; 80053; 81003; 82270; 82607; 82728; 82746; 83540; 83550; 83735; 83880; 84443; 84484; 85025; 85045; 85060; 86850; 86900; 86901; 86922; 87077; 88305; 93005; 93306; 99156; 99283; A9270-GY; J1756; J2250; J3010; J3475; P9040; Q9967

== ENCOUNTER 2019-09-25 08:37 | Emergency (ER) | payer MEDICARE ==
--- OUTSIDE RECORDS SUMMARY | 2019-09-25 08:43 | XMS REPORT ---
:1930 Author Organization [facility] Care Team Providers Name Role Phone Unavailable Unavailable Unavailable Problems Condition Condition Condition Status Onset Resolution Last Treating Comments Name Details Category Date Date Treatment Clinician Date Abdominal Abdominal Diagnosis Active Emely aortic aortic 2-10 Wendela aneurysm, aneurysm, without without rupture rupture Allergies, Adverse Reactions, Alerts Allergy Allergy Status Severity Reaction(s) Onset Inactive Treating Comments Name Type Date Date Clinician Unknown None Active Unknown None Unknown No Known Allergies For This Patient Medications Ordered Filled Start Stop Current Ordering Indication Dosage Frequency Signature Comments Components Medication Medication Date Date Medication? Clinician (SIG) Name Name No Known No Known No None None None Medications Medications For This For This Patient Patient Procedures This patient has no known procedures. Results This patient has no known results.
--- OUTSIDE RECORDS SUMMARY | 2019-09-25 08:43 | XMS REPORT | Summary of Care ---
:1930 Author Organization [facility] Address [address] [place] [address] Care Team Providers Name Role Phone Pawel Herring MD Primary Care Provider Reason for Visit Reason Comments Follow-up Encounter Details Date Type Department Care Team Description 08/17/2019 Office Visit [facility] Mel Lowery, AAA (abdominal aortic aneurysm) without rupture (Primary Dx); Associates MD ARIEL Aneurysm of left common iliac artery Department of Surgery, [address] [place] [address] Division of Vascular Room [address] [place], [place] Endovascular Services [phone] [facility] [phone] [place] [address] (Fax) [phone] Allergies No Known Allergiesdocumented as of this encounter (statuses as of 08/17/2019) Medications Medication Sig Dispensed Refills Start End Date Status Date metFORMIN HCl 500 Take 500 mg by 0 Active MG Oral Tablet mouth Two times (GLUCOPHAGE) daily with meals lisinopril Take 10 mg by 0 Active (PRINIVIL,ZESTRIL mouth every ) 20 MG tablet morning lovastatin Take 40 mg by 0 Active (MEVACOR) 40 MG mouth nightly tablet Apixaban 5 MG Take 5 mg by 0 Active Oral Tablet mouth Two Times (ELIQUIS) Daily Digoxin 125 MCG Take 125 mcg by 0 Active Oral Tablet mouth Two Times (LANOXIN) Daily Albuterol Sulfate Take 2.5 mg by 0 Active (5 MG/ML) 0.5% nebulization Two Inhalation Times Daily Nebulization Solution (PROVENTIL) Ipratropium Take 0.5 mg by 0 Active [place] 0.02 % nebulization Two Inhalation Times Daily Solution (ATROVENT) Arformoterol Take 15 mcg by 0 Active Tartrate 15 nebulization Two MCG/2ML Times Daily Inhalation Nebulization Solution (BROVANA) Naproxen Sodium Take 440 mg by 0 Active 220 MG Oral mouth every Capsule (ALEVE) morning Ferrous Sulfate Take 325 mg by 0 Active 325 (65 Fe) MG mouth daily with Oral Tablet breakfast Famotidine 20 MG Take 20 mg by 0 08/17/19 Discontinued Oral Tablet mouth every 20 (Therapy (PEPCID) morning completed) documented as of this encounter (statuses as of 08/17/2019) Active Problems Problem Noted Date AAA (abdominal aortic aneurysm) without rupture 07/24/2019 Overview: Added automatically from request for surgery [id number] Aneurysm of left common iliac artery 07/24/2019 Overview: Added automatically from request for surgery [id number] documented as of this encounter (statuses as of 08/17/2019) Social History Tobacco Use Types Packs/Day Years Used Date Former Smoker Quit: 07/24/1999 Smokeless Tobacco: Never Used Alcohol Use Drinks/Week oz/Week Comments Yes 3 Shots of liquor 3.0 several Alcoholic beverages per day Sex Assigned at Date Recorded Not on file Job Start Date Occupation Industry Not on file Not on file Not on file Travel History Travel Start Travel End No recent travel history available. documented as of this encounter Last Filed Vital Signs Vital Sign Reading Time Taken Comments Blood Pressure 117/61 08/17/2019 12:26 PM EST Pulse 77 08/17/2019 12:26 PM EST Temperature 36.4 08/17/2019 12:26 PM EST C (97.6 F) Respiratory Rate 18 08/17/2019 12:26 PM EST Oxygen Saturation 97% 08/17/2019 12:26 PM EST Inhaled Oxygen Concentration - - Weight 69.4 kg (153 lb) 08/17/2019 12:26 PM EST Height 172.7 cm (5' 8") 08/17/2019 12:26 PM EST Body Mass Index 23.26 08/17/2019 12:26 PM EST documented in this encounter Progress Notes Mel Lowery MD - 08/17/2019 11:45 AM EST Subjective: Patient ID: Anurag Pearl is a 88 y.o. male with past medical history of Anemia, Arthritis, Asthma, Bronchitis, chronic, Cancer, CHF (congestive heart failure), Diabetes mellitus, Hearing loss, Heart murmur, Hyperlipidemia, Hypertension, COPD (on oxygen at night), DM, HTN, Afib (on Eliquis) and osteoporosis. He was referred to Vascular Surgery for a AAA measuring 4.4 cm and left common iliac aneurysm measuring 6cm. This was found incidentally on a CT of the abdomen and pelvis done at [facility] on 07/14/19 for evaluation of abdominal pain. During this hospital coarse he reports that he was transfused with 2 units of blood for anemia with an unknown cause and instructed that he needed to follow up with us. He states that he is feeling well. He denies any chest pain, back pain or current abdominal pain. He denies difficulties with ambulation or pain in the legs at rest. He is a former smoker that quit 20 years ago. He is set for surgery next week. He and his family have questions about the procedure. Chief Complaint: EARNEST Osborn has a past medical history of Anemia, Arrhythmia, Arthritis, Asthma, Blood transfusion without reported diagnosis, Bronchitis, chronic, Cancer, CHF ( congestive heart failure), COPD (chronic obstructive pulmonary disease), Diabetes mellitus, Hearing loss, Heart murmur, Hyperlipidemia, Hypertension, Osteoporosis, and Scarring of lung. Anurag has AAA (abdominal aortic aneurysm) without rupture and Aneurysm of left common iliac artery on their problem list. Anurag has a past surgical history that includes Hip surgery (Right); Cholecystectomy; Hernia repair (Right); Lung lobectomy; Appendectomy; Joint replacement; and Cataract extraction (Bilateral). His family history is not on file. Anurag reports that he quit smoking about 20 years ago. He has never used smokeless tobacco. He reports current alcohol use of about 3.0 standard drinks of alcohol per week. He reports that he does not use drugs. Anurag has a current medication list which includes the following prescription(s ): apixaban, arformoterol, digoxin, ferrous sulfate, ipratropium, lisinopril, lovastatin, metformin, naproxen sodium, albuterol, and famotidine. Current Outpatient Medications on File Prior to Visit Medication Sig Dispense Refill Apixaban 5 MG Oral Tablet (ELIQUIS) Take 5 mg by mouth Two Times Daily Arformoterol Tartrate 15 MCG/2ML Inhalation Nebulization Solution ( BROVANA) Take 15 mcg by nebulization Two Times Daily Digoxin 125 MCG Oral Tablet (LANOXIN) Take 125 mcg by mouth Two Times Daily Ferrous Sulfate 325 (65 Fe) MG Oral Tablet Take 325 mg by mouth daily with breakfast Ipratropium [place] 0.02 % Inhalation Solution (ATROVENT) Take 0.5 mg by nebulization Two Times Daily lisinopril (PRINIVIL,ZESTRIL) 20 MG tablet Take 10 mg by mouth every morning lovastatin (MEVACOR) 40 MG tablet Take 40 mg by mouth nightly metFORMIN HCl 500 MG Oral Tablet (GLUCOPHAGE) Take 500 mg by mouth Two times daily with meals Naproxen Sodium 220 MG Oral Capsule (ALEVE) Take 440 mg by mouth every morning Albuterol Sulfate (5 MG/ML) 0.5% Inhalation Nebulization Solution ( PROVENTIL) Take 2.5 mg by nebulization Two Times Daily Famotidine 20 MG Oral Tablet (PEPCID) Take 20 mg by mouth every morning No current facility-administered medications on file prior to visit. Anurag has No Known Allergies. Review of Systems All other systems reviewed and are negative. Objective: Physical Exam Constitutional: He is oriented to person, place, and time. He appears well- developed and well-nourished. HENT: Head: Normocephalic and atraumatic. Eyes: Pupils are equal, round, and reactive to light. Neck: Normal range of motion. Cardiovascular: Normal rate and intact distal pulses. Pulmonary/Chest: Effort normal. Abdominal: Soft. Musculoskeletal: Normal range of motion. General: Edema present. Neurological: He is alert and oriented to person, place, and time. Skin: Skin is warm and dry. Psychiatric: He has a normal mood and affect. His behavior is normal. Judgment and thought content normal. Nursing note and vitals reviewed. Lab Review: Imaging and other diagnostics: 07/14/19 CT of the Abdomen and Pelvis done at [facility] that showed: Abdominal aortic aneurysm, greatest transvere dimensions 4.4 x 3.8cm above the bifurcation without dissection or leak. Additional aneurysmal dilation of the left common iliac artery measuring 6cm transversly, previously 4.3cm which has progressed. No leak. Measurements of CT by Dr. Lowery: AAA measures 4cm Right common iliac artery measures max of 2.15cm; at the bifurcation 1.93cm Left common iliac artery 4.81cm At renal 26.4 mm; 20 mm below 24.7 mm Aortic bifurcation 30 mm Right BRYNN max 21.5 mm and @ bifurcation 19.3 mm; Right EIA 7 mm MASTER STEAM YACHT OK Left BRYNN 48 mm; left hypogastric 8.7 mm; Left EIA 8.26 mm; MASTER STEAM YACHT Ok Assessment: 1. 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 Aneurysm of left common iliac artery Plan: 88 y o male with large left BRYNN aneurysm (max 4.8 cm diameter) who has good anatomy for an endovascular repair which would also extend up over the smaller 4 cm AAA and is also amenable to an iliac branch graft which would allow for preservation of his internal iliac artery on that side. He has a riskof rupture without repair. Repair is recommended after the IIA aneurysm reaches 3.5 cm and certainly over 4 cm in an acceptable risk patient using endovascular methods. Dr. Smith from Internal Medicine had some concerns about his cardiac and Pulmonary status. He had Cardiology clearance with Dr. Ayala 08/03/2019. He felt that his cardiac status is overall stable. He has chronic Afib. He has a hx of diastolic heart failure and last Echo showed normal LV function. He felt that he is at increased risk for complications given his pulmonary and cardiac status. He would likely do well with an endovascular procedure. If he had to be converted to open procedure and have to be fully intubated for open procedure, his recovery would be long and arduous. He recommended avoiding a prolonged general anesthesia from pulmonary standpoint. He did not think any further cardiac work up was necessary. I have brought him and his family back in today for further discussion about the procedure and risksand expectations. I will ask Anesthesia to use spinal anesthesia or MAC, local for the procedure. I will try to do this percutaneously if possible. I discussed this with the patient and his family at length, includingthe low but existent need for open conversion or general anesthesia. They understand the risk of rupture without repair. He has a very high risk of mortality if it ruptures. He has a 1-2% risk of open conversion and as well. Bleeding, need for MA[employer] repair, infection and contrast nephropathy discussed. He will hold his anticoagulation from Tuesday on. He is agreeable to proceed. Total time spent during this encounter including review of record and available studies, obtaining history and performing the physical exam with recommendations was 45 minutes. documented in this encounter Plan of Treatment Date Type Specialty Care Team Description 08/22/2019 Hospital Encounter Mel Lowery MD [address] [facility] Room [address] [place] [address] [phone] Health Maintenance Due Date Last Done Comments MMR Vaccines (1 of 1 - Standard 1930 series) Varicella Vaccines (1 of 2 - 1930 2-dose childhood series) DTaP,Tdap,and Td Vaccines (1 - 1936 Tdap) Zoster Vaccines (1 of 2) 11/16/1979 Pneumococcal Vaccine: 65+ Years (1 1994 of 2 - PCV13) Influenza Vaccine 04/17/2019 HIB Vaccines Aged Out No longer eligible based on patient's age to complete this topic Hepatitis A Vaccines Aged Out No longer eligible based on patient's age to complete this topic Hepatitis B Vaccines Aged Out No longer eligible based on patient's age to complete this topic IPV Vaccines Aged Out No longer eligible based on patient's age to complete this topic Pneumococcal Vaccine: Pediatrics Aged Out No longer eligible based on (0 to 5 Years) and At-Risk patient's age to complete this Patients (6 to 64 Years) topic documented as of this encounter Procedures Procedure Name Priority Date/Time Associated Diagnosis Comments CARDIAC REPORT 08/08/2019 3:11 PM EST CARDIAC REPORT 08/08/2019 3:11 PM EST CARDIAC REPORT 08/08/2019 3:09 PM EST CARDIAC REPORT 08/08/2019 3:05 PM EST CARDIAC REPORT 08/08/2019 12:21 PM EST documented in this encounter Results Not on filedocumented in this encounter Visit Diagnoses Diagnosis AAA (abdominal aortic aneurysm) without rupture - Primary Abdominal aneurysm without mention of rupture Aneurysm of left common iliac artery documented in this encounter
--- OUTSIDE RECORDS SUMMARY | 2019-09-25 08:43 | XMS REPORT ---
:1930 Author Organization [facility] Care Team Providers Name Role Phone Unavailable [...]
--- OUTSIDE RECORDS SUMMARY | 2019-09-25 08:43 | XMS REPORT | Summary of Care ---
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 Mel Lowery MD Procedures CT Angiography Abdomen and Pelvis [address] [facility] Room [address] [place], [place] [id number] Email: [email or web address] Reason for Visit Reason Comments Post-op Encounter Details Date Type Department Care Team Description 08/31/2019 Office Visit [facility] Mel Lowery, AAA (abdominal aortic aneurysm) without rupture (Primary Dx); Associates MD ARIEL Aneurysm of left common iliac artery Department of Surgery, [address] [place] [address] Division of Vascular Room [address] [place] [address] Endovascular Services [phone] [facility] [phone] [place] [address] (Fax) [phone] Allergies No Known Allergiesdocumented as of this encounter (statuses as of 08/31/2019) Medications Medication Sig Dispensed Refills Start Date End Date Status metFORMIN HCl 500 MG Take 500 mg by 0 Active Oral Tablet mouth Two times (GLUCOPHAGE) daily with meals lisinopril Take 10 mg by 0 Active (PRINIVIL,ZESTRIL) mouth every 20 MG tablet morning lovastatin (MEVACOR) Take 40 mg by 0 Active 40 MG tablet mouth nightly Digoxin 125 MCG Oral Take 125 mcg by 0 Active Tablet (LANOXIN) mouth daily Albuterol Sulfate (5 Take 2.5 mg by 0 Active MG/ML) 0.5% nebulization Two Inhalation Times Daily Nebulization Solution (PROVENTIL) Ipratropium [place] Take 0.5 mg by 0 Active 0.02 % Inhalation nebulization Two Solution (ATROVENT) Times Daily Arformoterol Take 15 mcg by 0 Active Tartrate 15 MCG/2ML nebulization Two Inhalation Times Daily Nebulization Solution (BROVANA) Ferrous Sulfate 325 Take 325 mg by 0 Active (65 Fe) MG Oral mouth daily with Tablet breakfast Apixaban 5 MG Oral Take 1 tablet by 0 08/24/2019 Active Tablet (ELIQUIS) mouth Two Times Daily Acetaminophen 325 MG Take 2 tablets by 30 tablet 0 08/23/2019 09/02/2019 Active Oral Tablet mouth every 6 (six) hours for 10 days Docusate Sodium 100 Take 1 capsule by 20 capsule 0 08/23/2019 09/02/2019 Active MG Oral Capsule mouth Two Times (COLACE) Daily for 10 days Senna 8.6 MG Oral Take 2 tablets by 120 each 0 08/23/2019 Active Tablet mouth nightly documented as of this encounter (statuses as of 08/31/2019) Active Problems Problem Noted Date COPD (chronic obstructive pulmonary disease) 08/23/2019 Overview: On chronic oxygen 2 liters nasal canula HTN (hypertension) 08/23/2019 DM (diabetes mellitus) 08/23/2019 AAA (abdominal aortic aneurysm) 08/22/2019 Iliac artery aneurysm, left 08/22/2019 AAA (abdominal aortic aneurysm) without rupture 07/24/2019 Overview: Added automatically from request for surgery [id number] Aneurysm of left common iliac artery 07/24/2019 Overview: Added automatically from request for surgery [id number] documented as of this encounter (statuses as of 08/31/2019) Social History Tobacco Use Types Packs/Day Years [...] Sign Reading Time Taken Comments Blood Pressure 126/57 08/31/2019 12:08 PM EST Pulse 80 08/31/2019 12:08 PM EST Temperature 35.9 08/31/2019 12:08 PM EST C (96.7 F) Respiratory Rate 18 08/31/2019 12:08 PM EST Oxygen Saturation 99% 08/31/2019 12:08 PM EST Inhaled Oxygen Concentration - - Weight 67.1 kg (148 lb) 08/31/2019 12:08 PM EST Height 177.8 cm (5' 10") 08/31/2019 12:08 PM EST Body Mass Index 21.24 08/31/2019 12:08 PM EST documented in this encounter Progress Notes Mel Lowery MD - 08/31/2019 11:45 AM EST Subjective: Patient ID: Anurag [...] of the abdomen and pelvis done at [facility] on 07/14/19 for evaluation of abdominal pain. [...] former smoker that quit 20 years ago. 08/22/19 PROCEDURE: A left iliac artery endovascular aneurysm repair with percutaneous approach with a [place] iliac branchdevice 23 mm x 12 mm x 10 cm and internal iliac component 16 mm x 14.5 mm x 7 cm. No complaints. He is doing well. Chief Complaint: EARNEST Osborn has a past medical history of Anemia, Arrhythmia, Arthritis, Asthma, Blood transfusion without reported diagnosis, Bronchitis, chronic, Cancer, CHF ( congestive heart failure), COPD (chronic obstructive pulmonary disease), Diabetes mellitus, Hearing loss, Heart murmur, Hyperlipidemia, Hypertension, Osteoporosis, and Scarring of lung. 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 Anurag has a [...] list which includes the following prescription(s ): acetaminophen (tylenol) tablet, albuterol, apixaban, arformoterol, digoxin, docusate sodium, ferrous sulfate, ipratropium, lisinopril, lovastatin, metformin , and senna. Current Outpatient Medications on File Prior to Visit Medication Sig Dispense Refill Acetaminophen 325 MG Oral Tablet Take 2 tablets by mouth every 6 (six) hours for 10 days 30 tablet 0 Albuterol Sulfate (5 MG/ML) 0.5% Inhalation Nebulization Solution ( PROVENTIL) Take 2.5 mg by nebulization Two Times Daily Apixaban 5 MG Oral Tablet (ELIQUIS) Take 1 tablet by mouth Two Times Daily Arformoterol Tartrate 15 MCG/2ML Inhalation Nebulization Solution ( BROVANA) Take 15 mcg by nebulization Two Times Daily Digoxin 125 MCG Oral Tablet (LANOXIN) Take 125 mcg by mouth daily Docusate Sodium 100 MG Oral Capsule (COLACE) Take 1 capsule by mouth Two Times Daily for 10 days 20 capsule 0 Ferrous Sulfate 325 (65 Fe) MG Oral Tablet Take 325 mg by mouth daily with breakfast Ipratropium [place] 0.02 % Inhalation Solution (ATROVENT) Take 0.5 mg by nebulization Two Times Daily lisinopril (PRINIVIL,ZESTRIL) 20 MG tablet Take 10 mg by mouth every morning lovastatin (MEVACOR) 40 MG tablet Take 40 mg by mouth nightly metFORMIN HCl 500 MG Oral Tablet (GLUCOPHAGE) Take 500 mg by mouth Two times daily with meals Senna 8.6 MG Oral Tablet Take 2 tablets by mouth nightly 120 each 0 No current facility-administered medications on file prior [...] content normal. Nursing note and vitals reviewed. PT triphasic bilaterally; DP biphasic bilaterally. Lab Review: Imaging and other diagnostics: 07/14/19 CT of the Abdomen and Pelvis done at [facility] that showed: Abdominal aortic aneurysm, greatest transvere [...] bifurcation 19.3 mm; Right EIA 7 mm [employer] [place] Left BRYNN 48 mm; left hypogastric 8.7 mm; Left EIA 8.26 mm; [employer] Ok Assessment: 1. 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 Aneurysm of left common iliac artery Plan: 88 y o male with large left BRYNN aneurysm (max 4.8 cm diameter) and is s/p repair. He would need a CTA Abd/ Pelvis to monitor repair. He is back on his Eliquis. I'll see him back after the CTA. documented in this encounter Plan of Treatment Name Type Priority Associated Diagnoses Order Schedule CT Angiography Abdomen Imaging Routine AAA (abdominal aortic Expected: , and Pelvis aneurysm) without Expires: 11/28/2020 rupture Aneurysm of left common iliac artery Basic Metabolic Panel Lab Routine AAA (abdominal aortic 1 Occurrences starting aneurysm) without 08/31/2019 until rupture 02/29/2020 Aneurysm of left common iliac artery Health Maintenance Due Date Last Done Comments DTaP,Tdap,and Td Vaccines (1 - 1936 Tdap) Hepatitis B Vaccines (1 of 3 - 1948 Risk 3-dose series) Pneumococcal Vaccine: 65+ Years (1 1994 of 2 - PCV13) MMR Vaccines (1 of 1 - Standard 08/15/2013 series) Varicella Vaccines (1 of 2 - 08/15/2013 07/18/2013 2-dose childhood series) Zoster Vaccines (2 of 3) 09/12/2013 07/18/2013 Influenza Vaccine 04/17/2019 HIB Vaccines Aged Out [...] Years) and At-Risk patient's age to complete Patients (6 to 64 Years) this topic documented as of this encounter Implants Implanted Type Area Radar Repairer Device Shelf Model / Identifier Expiration Serial / Lot Date Vas Amanda - Proglide Perclose - Sn/A Right: GUIDANT CANDE 05/17/2021 [id number] / Implanted: Qty: 2 on 08/22/2019 by Mel Lowery MD at [facility] Groin N/A / [id number] Vas Amanda - Proglide Perclose - Sn/A Left: GUIDANT CANDE 05/17/2021 [id number] / Implanted: Qty: 2 on 08/22/2019 by Mel Lowery MD at OR [facility] Groin N/A / [id number] Cov Stnt- Excluder 23 X 12 [id number] - [id number] Left: ALVERTO ERVIN 01/08/2022 [id number] / Implanted: Qty: 1 [facility]22/[facility] [id number] / N/A Stent Graft [id number] - [id number] Left: ALVERTO ERVIN 2021 [id number] / Implanted: Qty: 1 on 08/22/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
--- OUTSIDE RECORDS SUMMARY | 2019-09-25 08:43 | XMS REPORT | Summary of Care ---
:1930 Author Organization [facility] Address [address] [place] [address] Care Team Providers Name Role Phone Pawel Herring MD Primary Care Provider Encounter Details Date Type Department Care Team Description 08/09/2019 Office Visit PREADMISSION TESTING Daphne Le, Preop testing [address] [facility]x) [address] [place] [address] [phone] [place] [address] [phone] Allergies No Known Allergiesdocumented as of this encounter (statuses as of 08/10/2019) Medications Medication Sig Dispensed Refills Start Date End Date Status metFORMIN HCl 500 MG Take 500 mg by mouth 0 Active Oral Tablet Two times daily with (GLUCOPHAGE) meals lisinopril Take 10 mg by mouth 0 Active (PRINIVIL,ZESTRIL) every morning 20 MG tablet lovastatin (MEVACOR) Take 40 mg by mouth 0 Active 40 MG tablet nightly Famotidine 20 MG Take 20 mg by mouth 0 Active Oral Tablet (PEPCID) every morning Apixaban 5 MG Oral Take 5 mg by mouth 0 Active Tablet (ELIQUIS) Two Times Daily Digoxin 125 MCG Oral Take 125 mcg by 0 Active Tablet (LANOXIN) mouth Two Times Daily Albuterol Sulfate (5 Take 2.5 mg by 0 Active MG/ML) 0.5% nebulization Two Inhalation Times Daily Nebulization Solution (PROVENTIL) Ipratropium [place] Take 0.5 mg by 0 Active 0.02 % Inhalation nebulization Two Solution (ATROVENT) Times Daily Arformoterol Take 15 mcg by 0 Active Tartrate 15 MCG/2ML nebulization Two Inhalation Times Daily Nebulization Solution (BROVANA) Naproxen Sodium 220 Take 440 mg by mouth 0 Active MG Oral Capsule every morning (ALEVE) Ferrous Sulfate 325 Take 325 mg by mouth 0 Active (65 Fe) MG Oral daily with breakfast Tablet documented as of this encounter (statuses as of 08/10/2019) Active Problems Problem Noted Date AAA (abdominal aortic aneurysm) without rupture 07/24/2019 Overview: Added automatically from request for surgery [id number] Aneurysm of left common iliac artery 07/24/2019 Overview: Added automatically from request for surgery [id number] documented as of this encounter (statuses as of 08/10/2019) Social History Tobacco Use Types Packs/Day Years [...] Sign Reading Time Taken Comments Blood Pressure 133/74 08/09/2019 1:14 PM EST Pulse 84 08/09/2019 1:14 PM EST Temperature 36.4 08/09/2019 1:14 PM EST C (97.5 F) Respiratory Rate 18 08/09/2019 1:14 PM EST Oxygen Saturation 95% 08/09/2019 1:14 PM EST Inhaled Oxygen Concentration - - Weight 71.3 kg (157 lb 3 oz) 08/09/2019 1:14 PM EST Height 172 cm (5' 7.72") 08/09/2019 1:14 PM EST Body Mass Index 24.1 08/09/2019 1:14 PM EST documented in this encounter Plan of Treatment Date Type Specialty Care Team Description 08/17/2019 Office Visit Vascular Surgery Mel Lowery MD [address] [phone] 08/22/2019 Hospital Encounter Mel Lowery MD [address] [address] [phone] Health Maintenance Due Date Last Done Comments [...] Procedure Name Priority Date/Time Associated Diagnosis Comments CBC Routine 08/09/2019 1:52 PM Preop testing Results for this EST procedure are in the results section. TYPE AND SCREEN Routine 08/09/2019 1:52 PM Preop testing Results for this EST procedure are in the results section. BASIC METABOLIC Routine 08/09/2019 1:52 PM Preop testing Results for this PANEL EST procedure are in the results section. documented in this encounter Results Basic metabolic panel (08/09/2019 1:52 PM EST) Bicarbonate 28 22 - 29 [facility] mmol/L [facility] Chloride 102 98 - 107 [facility] mmol/L [facility] Creatinine 0.61 (L) 0.70 - 1.20 [facility] mg/dL [facility] Glucose 69 (L) 70 - 140 [facility] mg/dL [facility] Potassium 4.8 3.4 - 5.1 [facility] mmol/L [facility] Sodium 141 136 - 145 [facility] mmol/L [facility] Blood Urea Nitrogen 17 8 - 23 mg/dL [facility] Anion Gap 11 8 - 15 mmol/L [facility] Osmolality, Keron 292 275 - 300 [facility] mosm/kg [facility] BUN/Cre Ratio 28 [facility] Calcium 9.7 8.8 - 10.2 [facility] mg/dL [facility] GFR Non eGFR is not >60 [facility] 2008 calculated in mL/min/1.73m2 [facility] CDK-EPI patients <18 or Pathology >80 years of age. GFR eGFR is not >60 [facility] 2008 calculated in mL/min/1.73m2 [facility] CKD-EPI patients <18 or Pathology >80 years of age. Specimen Plasma Performing Organization Address City/[facility]ode Phone Number [facility] [address] [place] [address] [facility] [address] [place] [address] Pathology Type and screen (08/09/2019 1:52 PM EST) ABO/RH(D) O NEG [facility] Pathology Gel Antibody Screen NEG [facility] Pathology Site Performed at [facility], [place], [place] Specimen EDTA Whole Blood Performing Organization Address [facility] Centercosd Phone Number [facility] [address] [place] [address] [facility] [address] [place] [address] Pathology CBC (08/09/2019 1:52 PM EST) White Blood Cell 6.4 4 - 10 10*3/uL [facility] Pathology Red Blood Cell 4.66 4.6 - 6.1 [facility] 10*6/uL [facility] Pathology Hemoglobin 11.4 (L) 13.5 - 18 g/dL [facility] Pathology Hematocrit 37.7 (L) 41 - 53 % [facility] Pathology Mean Cell Volume 80.9 80 - [address] [facility] Mean Cell Hemoglobin 24.5 (L) 27 - 33 pg [facility] Pathology Mean Cell Hgb Conc 30.3 (L) 32.0 - 36.0 [facility] g/dL [facility] Pathology Red Cell Dist Width 31.4 (H) 11.5 - 14.5 % [facility] Pathology Platelet Count 176 150 - 400 [facility] 10*3/uL [facility] Pathology Specimen EDTA Whole Blood Performing Organization Address [facility]/Zipcode Phone Number [facility] [address] [place] [address] [phone] [facility] [address] [place] [address] Pathology documented in this encounter Visit Diagnoses Diagnosis Preop testing - Primary Preoperative examination, unspecified documented in this encounter
--- OUTSIDE RECORDS SUMMARY | 2019-09-25 08:43 | XMS REPORT | Summary of Care ---
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 Yumiko Mckeon Services Services B, SCRAP KETTLE TENDER Required [address] [facility] [address] [place] [address] Email: [email or web address] Reason for Visit Auth/Cert Status Reason Specialty Diagnoses / Procedures Referred By Contact Referred To Contact Diagnoses AAA and iliac aneurysm Mel Lowery MD [address] [address] Email: [email or web address] Encounter Details Date Type Department Care Team Description 08/22/2019 - Hospital Encounter 08G CARDIOTHORACIC Mel Lowery AAA (abdominal aortic aneurysm) without rupture (Primary Dx); 08/23/2019 [address] Rigo Xiong MD Aneurysm of left common iliac artery [place], [place] [address] [place] [address] [address] [phone] Allergies No Known Allergiesdocumented as of this encounter (statuses as of 08/23/2019) Medications Medication Sig Dispensed Refills Start End Date Status Date metFORMIN HCl 500 Take 500 mg by 0 Active MG Oral Tablet mouth Two times (GLUCOPHAGE) daily with meals lisinopril Take 10 mg by 0 Active (PRINIVIL,ZESTRIL mouth every ) 20 MG tablet morning lovastatin Take 40 mg by 0 Active (MEVACOR) 40 MG mouth nightly tablet Digoxin 125 MCG Take 125 mcg by 0 Active Oral Tablet mouth daily (LANOXIN) Albuterol Sulfate Take 2.5 mg by 0 Active (5 MG/ML) 0.5% nebulization Two Inhalation Times Daily Nebulization Solution (PROVENTIL) Ipratropium Take 0.5 mg by 0 Active Cutler 0.02 % nebulization Two Inhalation Times Daily Solution (ATROVENT) Arformoterol Take 15 mcg by 0 Active Tartrate 15 nebulization Two MCG/2ML Times Daily Inhalation Nebulization Solution (BROVANA) Ferrous Sulfate Take 325 mg by 0 Active 325 (65 Fe) MG mouth daily with Oral Tablet breakfast Apixaban 5 MG Take 1 tablet by 0 Active Oral Tablet mouth Two Times 0 (ELIQUIS) Daily Acetaminophen 325 Take 2 tablets 30 tablet 0 09/02/19 Active MG Oral Tablet by mouth every 6 0 20 (six) hours for 10 days Docusate Sodium Take 1 capsule 20 capsule 0 09/02/19 Active 100 MG Oral by mouth Two 0 20 Capsule (COLACE) Times Daily for 10 days Senna 8.6 MG Oral Take 2 tablets 120 each 0 Active Tablet by mouth nightly 0 Famotidine 20 MG Take 20 mg by 0 08/17/19 Discontinued Oral Tablet mouth every 20 (Therapy (PEPCID) morning completed) Apixaban 5 MG Take 5 mg by 0 08/23/19 Discontinued Oral Tablet mouth Two Times 20 (Reorder) (ELIQUIS) Daily Naproxen Sodium Take 440 mg by 0 08/23/19 Discontinued 220 MG Oral mouth every 20 (Stop Taking at Capsule (ALEVE) morning Discharge) documented as of this encounter (statuses as of 08/23/2019) Active Problems Problem Noted Date COPD (chronic obstructive pulmonary disease) 08/23/2019 Overview: On chronic oxygen 2 liters nasal canula HTN (hypertension) 08/23/2019 DM (diabetes mellitus) 08/23/2019 AAA (abdominal aortic aneurysm) 08/22/2019 Iliac artery aneurysm, left 08/22/2019 AAA (abdominal aortic aneurysm) without rupture 07/24/2019 Overview: Added automatically from request for surgery [id number] Aneurysm of left common iliac artery 07/24/2019 Overview: Added automatically from request for surgery [id number] documented as of this encounter (statuses as of 08/23/2019) Social History Tobacco Use Types Packs/Day Years [...] Sign Reading Time Taken Comments Blood Pressure 131/79 08/23/2019 10:00 AM EST Pulse 82 08/23/2019 10:00 AM EST Temperature 37.2 08/23/2019 8:00 AM EST C (99 F) Respiratory Rate 22 08/23/2019 10:00 AM EST Oxygen Saturation 95% 08/23/2019 10:00 AM EST Inhaled Oxygen Concentration - - Weight 67.1 kg (148 lb) 08/22/2019 10:58 AM EST Height 177.8 cm (5' 10") 08/22/2019 10:58 AM EST Body Mass Index 21.24 08/22/2019 10:58 AM EST documented in this encounter Discharge Instructions Patient InstructionsCi, EUGENIE Wynn - 08/09/2019 12:45 PM EST PRE-ANESTHESIA INSTRUCTIONS Tentative Date: 08/22/2019 Tentative Arrival Time: per heart and vascular Take medications morning of surgery with a few sips of water/clear liquid NAHID POURER BULL LADLE Medications Medication Sig Pre-Anesthesia Instructions for Medications Albuterol Sulfate (5 MG/ML) 0.5% Inhalation Nebulization Solution ( PROVENTIL) Take 2.5 mg by nebulization Two Times Daily Continue as prescribed - TAKE MORNING OF SURGERY Apixaban 5 MG Oral Tablet (ELIQUIS) Take 5 mg by mouth Two Times Daily Call Surgeon for instructions Arformoterol Tartrate 15 MCG/2ML Inhalation Nebulization Solution ( BROVANA) Take 15 mcg by nebulization Two Times Daily Continue as prescribed - TAKE MORNING OF SURGERY Digoxin 125 MCG Oral Tablet (LANOXIN) Take 125 mcg by mouth Two Times Daily Continue as prescribed - TAKE MORNING OF SURGERY Famotidine 20 MG Oral Tablet (PEPCID) Take 20 mg by mouth every morning Continue as prescribed - TAKE MORNING OF SURGERY Ferrous Sulfate 325 (65 Fe) MG Oral Tablet Take 325 mg by mouth daily with breakfast Continueas prescribed - NOT TO BE TAKEN DAY OF SURGERY Ipratropium Cutler 0.02 % Inhalation Solution (ATROVENT) Take 0.5 mg by nebulization Two Times Daily Continue as prescribed - TAKE MORNING OF SURGERY lisinopril (PRINIVIL,ZESTRIL) 20 MG tablet Take 10 mg by mouth every morning Continue as prescribed - NOT TO BE TAKEN DAY OF SURGERY lovastatin (MEVACOR) 40 MG tablet Take 40 mg by mouth nightly Continue as prescribed metFORMIN HCl 500 MG Oral Tablet (GLUCOPHAGE) Take 500 mg by mouth Two times daily with mealsHOLD Evening Dose night before surgery and HOLD morning dose day of surgery Naproxen Sodium 220 MG Oral Capsule (ALEVE) Take 440 mg by mouth every morning Call Surgeon for instructions ADULT AND CHILDREN 12 years old and older: These instructions apply to food and liquids by mouth andfeeding tube. Stop solid food 8 hours before your scheduled arrival at hospital (This includes gum and candies) Stop all clear liquids 2 hours before your scheduled arrival at hospital. Examples of Approved Clear Liquids for Children: water or ice,clear juices ( apple, grape, cranberry), Jose-Aid, plain Jello, plain popsicles, and balanced electrolyte solution (Pedialyte). Examples of Approved Clear Liquids for Adults: Water or ice, apple juice, berry kye, non-red and non-purple Gatorade or Powerade. NOTHING ELSE, NO SUBSTITUTIONS! Examples of solids include: pureed solids, milk, formula, gum, candy, lozenges, pulp juices, nectars, or any liquid you cannot see through. PATIENTS WITH DIABETES PLEASE NOTE: Please check your sugar level the morning of your procedure. If you are having a low blood sugar attack (sweating, fatigue, light-headedness ) the morning of yoursurgery, please check your sugar level. You may take glucose tablets and/or clear juices such as apple, grape, or cranberry. Do not take juices you cannot see through such as orange or tomato juice.Do not eat solid food. If you are taking Motrin, Advil, Ibuprofen, or other anti-inflammatories, call your surgeon for specific instructions regarding stopping them prior to surgery. You may take Tylenol (acetaminophen) for pain. No alcohol, vitamins and supplements, illegal drugs or smoking 24 hours before surgery. Call your surgeon if you are sick, have a cold or fever. Make arrangements to have a responsible adult drive you home after surgery. Wear comfortable clothes, no valuables, remove all jewelry and piercing, no makeup or nail persian. Do not use oil, lotion or powder on your skin before coming for your procedure. You will meet with your Anesthesiologist the day of your surgery. The Night before Your Procedure: You should receive a phone call the business day before (Tuesday for Tuesday procedures) between 3 and6 PM to confirm your arrival time the next day, as any time given to you before this was only tentative. To finalize your arrival time for your procedure, and if you have not heard from : [facility] by 5 PM, you should call The Day of Your Procedure: Please park in the East Garage. Patient and Visitor parking is located on the 1st and 2nd floors of the garage. The garage accepts both etienne and credit cards for payment of parking fees. There also is an ANGIE located in the Main Lobby. Hemstitching Machine Operator Parking - Hemstitching Machine Operator Parking is available in the Hospital front chilkoot for an additional $5.00 on top of regular parking fees. 1st floor - If you park on the 1st floor of the garage, please walk across [facility] and enter through the Main Hospital entrance. Walk past the Visitor check in and go to the Registration desk on the right, where you will be registered for your procedure and your family will get their visitor passes. All adults need to provide photo ID. You will then be told where to go for your procedure. 2 nd floor - If you park on the 2nd floor of the garage, please walk across bridge over [facility]. Do NOT go to the Visitor checking in on the 2nd floor. Take either the stairs or the elevator to yourright and go down to the 1st floor Main Lobby. Walk past the Visitor check in and go to the Registration desk on the right, where you will be registered for your procedure and your family will get their visitor passes. All adults need to provide photo ID. You will then be told where to go for yourprocedure. 5E Fast Pass Patients: Directions to 5E Pre-Surgical Care Waiting Room For patients seen in Pre-admission testing, attach your 5E Visitor Pass prior to coming to the hospital. Be sure the 5E Visitor pass is visible and you may bypass visitor check in and registration. Main elevators to 5th Floor Exit the elevator and take a right out of the elevator, then take another right and go straightdown Hallway E Continue down the tucker approximately 50 feet on the left hand side to the Surgical Care WaitingArea Sign in at the Registration/[employer] [place] Consultant Desk Call Ambassador Services between 7:30am - 8:00PM. if you need more assistance Discharge Instr - Other Yumiko Lloyd NP - 08/23/2019 12:19 PM ESTEndovascular Stent graft repair AAA home instructions 1. NO driving for one week or when your incisions are no longer tender and you are no longer taking narcotic pain medications. 2. DO NOT sit with your legs hanging down for any length of time (except for meals or to use the bathroom). You may need to rest 1-2 times a day with your legs elevated above the level of the heart, this is to prevent further swelling. 3. You may shower and wash the incision with soap and water. 4. Wash gently with soap and water, pat dry, cover with dry gauze to keep area clean and dry and free of moisture or irritation. 5. You may have a mild back ache after this procedure. We believe this is from the aneurysm sac clotting when it is excluded from the flowing blood. This causes some minor swelling in the back muscles and a mild back ache. If you think your pain is worse than this call and speak to your doctor. 6. It is normal to have some swelling, tenderness and bruising at the incisions. You may use tylenol 650 mg every six hours and apply an ice pack to the sites every 2-3 hours for 30 minutes each time which tends to help you recover faster. 7. Call the office if you develop a fever greater than 102 degrees or you cannot keep down solid food. If you have questions or problems at home or you need to make or change a follow up appointment: [facility] [phone] [facility] [phone] Any satellite office: [phone] ([facility]) documented in this encounter Progress Notes Cathleen Wills RN - 08/23/2019 1:21 PM ESTPatient being discharged to home. VSS. PIV removed. AVS reviewed with patient and patients family atbedside. All stated understanding. Patient instructed to re-start home eliquis tomorrow 08/24 which patient stated understanding. Home PT set up by CM. Patient and family aware. [facility] transport where ride is waiting. Pippa Osborne RN - 08/23/2019 1:14 PM ESTCM spoke to team who stated that the patient was ready for discharge. PT recommended Home Care services. CM made referral to [facility]. Received Start of care date of or 08-28. Team and family aware. Patient to be discharged home. Yumiko Van NP - 08/23/2019 8:07 AM EST Vascular Surgery Progress Note Anurag Pearl 88 y.o. POD: 1 Day Post-Op S/P: EVAR and left iliac aneurysm repair Subjective: HPI: 88 y.o. male with a PMH significant for COPD on Oxygen, DM, HTN, Afib on Eliquis.He noted to have an incidental finding of a AAA measuring 4.4 cm and a left common iliac aneurysm 6 cm while undergoing a CT for abdominal pain. He was referred to Vascular surgery and after obtaining Cardiology and Pulmonary clearance he is now s/p EVAR and left iliac aneurysm repair. Seen this am, lying in bed, reports he feels good. Overnight he noted to develop a small right groinhematoma. This am right groin with small area firm surrounding area soft, no drainage or pain,. Denies CP, pressure, SOB, abdominal pain nausea or vomiting. I/O: Intake/Output Summary (Last 24 hours) at 08/23/2019 0837 Last data filed at 08/23/2019 0800 Gross per 24 hour Intake 1550 ml Output 1000 ml Net 550 ml IV Access Peripheral IV 08/22/19 Left Antecubital Peripheral IV 08/22/19 Right Antecubital Scheduled Meds: acetaminophen (TYLENOL) tablet 650 mg Oral Q6H ceFAZolin sodium 1 g Intravenous Q8H digoxin 125 mcg Oral Daily docusate sodium 100 mg Oral BID heparin (porcine) 5,000 Units Subcutaneous TID insulin lispro 1-8 Units Subcutaneous TID AC ipratropium-albuterol 3 mL Nebulization Q8H lovastatin 40 mg Oral Nightly polyethylene glycol 17 g Oral Daily senna 2 tablet Oral Nightly sodium chloride (preservative free) 3 mL Intravenous 3 times per day Continuous Infusions: PRN Meds:.dextrose, glucagon (human recombinant), glucose, ondansetron, oxyCODONE OR oxyCODONE, Peripheral IV AND sodium chloride (preservative free) AND sodium chloride (preservative free)AND Saline Lock Order Telemetry: Afib Accuchecks: 114-97-120 Physical Exam: Vitals: Visit Vitals BP 138/78 (BP Location: Right arm, Patient Position: Lying) Pulse 69 Temp 37.2 C (Bladder) Resp 17 Ht 1.778 m Wt 67.1 kg (148 lb) SpO2 97% BMI 21.24 kg/m Exam: General: Alert, pleasant, in NAD CV: irregular rhythm Lungs: CTA b/l no wheezes, rales, crackles or rhonchi RR non labored. Abd: Soft, non-tender, non-distended, positive bowel sounds, no masses Extremities:bilateral groin sites CDI no surrounding erythema or drainage. Right groin slightly firmer BLE warm perfused, pitting edema to lower extremities. Movement and sensation intact Pulses:BLE DP/PT audible Neuro: AAOx3, speech is clear, answers questions appropriately Labs, Imaging, and other Diagnostics: Diagnostic tests reviewed for today's visit. SCIP Measures: Antibiotics: discontinued post op Man: discontinued DVT prophylaxis: heparin sc Beta Justina: none Assessment and Plan: Principal Problem: AAA (abdominal aortic aneurysm) without rupture Active Problems: Aneurysm of left common iliac artery AAA (abdominal aortic aneurysm) Iliac artery aneurysm, left COPD (chronic obstructive pulmonary disease) HTN (hypertension) DM (diabetes mellitus) 1. AAA/Left iliac aneurysm: - s/p EVAR, left iliac aneurysm repair - dc man, dc a line, advance diet, OOB - PT, OT eval, Incentive spirometer - groin soft with good distal signals - pain control. 2. Afib: - chronic Afib, HR controlled - continue Digoxin - Plan to Restart Eliquis tomorrow 3. COPD: - on chronic oxygen at home - continue Duoneb 4. HTN: - BP well controlled - Lisinopril currently held 5. DM: - Hgb A1c 5.1 this admission - blood glucoses controlled - on oral medication as OP - continue Humalog correction scale, ADA diet 6. AHD: Full code 7. ADOD possibly later today vs tomorrow. Plan was discussed with the Attending and any changes to the plan will be per the Attending. Yumiko Mckeon NP-C Vascular Surgery August 23, 2019 8:37 AM Deidre Aguilar MD - 08/22/2019 9:19 PM EST Post op check Diagnosis: AAA and iliac aneursym Procedure: Endovascular AAA and left iliac aneurysm repair S: Patient feels well, no new complaints. Pain is well controlled. Bradycardia to 30s. Known atrial fibrillation. No fever, chills, chest pain, SOB, n/v O: Visit Vitals BP 116/75 (BP Location: Left arm, Patient Position: Lying) Pulse (!) 50 Temp 36.4 C (Bladder) Resp 15 Ht 1.778 m Wt 67.1 kg (148 lb) SpO2 97% BMI 21.24 kg/m General: NAD, alert and oriented CV: regular rate, extremities perfused, no edema Pulm: normal effort on room air Abd: Soft, NT, ND Wound: c/d/i A/P 88 y.o. male s/p endovascular AAA and left iliac aneurysm repair. Doing well post-operatively. - Diet: clears - Pain: tylenol, fent, oxy - Bed rest for 24 hours - VTE ppx: heparin 5000 units Deidre Tello MD General Surgery PGY-1 Chey , Ketty Childers RN - 08/22/2019 7:08 PM ESTIf wound was present on admission, this documentation was sent to attending provider for cosignature. Admitted to 8G room 32 at approx 1845, he is A&O to self and place, flat and orders for bedrest.Patient settled, report to oncoming RN. documented in this encounter Plan of Treatment Date Type Specialty Care Team Description 08/31/2019 Office Visit Vascular Surgery Mel Lowery MD [facility] [place] [address] [phone] Name Type Priority Associated Order Schedule Diagnoses POCT glucose, docked Point of Care STAT STAT for 1 (if diabetic) Testing-Docked Occurrences Device starting 08/22/2019 until 08/22/2019 Type and Screen Blood Bank Routine Once for 1 Occurrences starting 08/22/2019 until 08/22/2019 Prepare RBC 2 Units Blood Bank Routine Once for 1 Occurrences starting 08/22/2019 until 08/22/2019 IR Aortogram Imaging Routine AAA (abdominal One Time Imaging aortic aneurysm) Routine for 1 without rupture Occurrences starting 08/22/2019 until 08/22/2019 Oximetry Continuous Respiratory Care Routine Continuous for only 4 days for 4 Days starting 08/22/2019 until 08/26/2019 CBC and Differential Lab Routine AM Draw for 5 Occurrences starting 08/23/2019 until 08/27/2019, 1 completed Basic Metabolic Lab Routine AM Draw for 3 Days Panel starting 08/23/2019 until 08/25/2019, 1 completed POCT glucose, docked Point of Care Routine 4X Daily (AC & HS) Testing-Docked for 30 Days Device starting 08/22/2019 until 09/21/2019, 3 completed Name Type Priority Associated Diagnoses Order Schedule Referral to home Outpatient Referral Routine AAA (abdominal Ordered: health aortic aneurysm) 08/23/2019 without rupture Health Maintenance Due Date Last Done Comments [...] of this encounter Implants Implanted Type Area Pick Up Attendant Device Shelf Model / Identifier Expiration Serial / Lot Date Vas Amanda - Proglide Perclose - Sn/A Right: [employer] CANDE 05/17/2021 [id number] / Implanted: Qty: 2 on 08/22/2019 by Mel Lowery MD at OR [facility] Groin N/A / [id number] Vas Amanda - Proglide Perclose - Sn/A Left: [employer] CANDE 05/17/2021 [id number] / Implanted: Qty: 2 on 08/22/2019 by Mel Lowery MD at OR [facility] Groin N/A / [id number] Cov Stnt- Excluder 23 X 12 [id number] - [id number] Left: ALVERTO ERVIN 01/08/2022 [id number] / Implanted: Qty: 1 on 08/22/2019 by Mel Lowery MD at OR [facility] Groin [employer] [id number] / N/A Stent Graft [id number] - [id number] Left: ALVERTO ERVIN 2021 [id number] / Implanted: Qty: 1 on 08/22/2019 by Mel Lowery MD at OR [facility] [employer] [id number] / N/A documented as of this encounter Procedures Procedure Name Priority Date/Time Associated Comments Diagnosis POCT GLUCOSE, DOCKED Routine 08/23/2019 11:39 Results for this AM EST procedure are in the results section. POCT GLUCOSE, DOCKED Routine 08/23/2019 7:45 Results for this AM EST procedure are in the results section. CBC AND DIFFERENTIAL Routine 08/23/2019 2:15 Results for this AM EST procedure are in the results section. HEMOGLOBIN A1C Routine 08/23/2019 2:15 Results for this AM EST procedure are in the results section. BASIC METABOLIC PANEL Routine 08/23/2019 2:15 Results for this AM EST procedure are in the results section. POCT ISTAT ACT Routine 08/22/2019 3:15 Results for this PM EST procedure are in the results section. POCT ISTAT ACT Routine 08/22/2019 2:56 Results for this PM EST procedure are in the results section. POCT ISTAT ACT Routine 08/22/2019 2:45 Results for this PM EST procedure are in the results section. ENDOVASCULAR AAA 08/22/2019 12:54 AAA (abdominal PM EST aortic aneurysm) without rupture Aneurysm of left common iliac artery Special Needs Arrive @ 11 am Confirmed with pts () [place] on 07/26 Letter sent TYPE AND CROSSMATCH STAT 08/22/2019 11:00 AM EST CBC STAT 08/22/2019 10:55 AM EST BASIC METABOLIC PANEL STAT 08/22/2019 10:55 AM EST documented in this encounter Results POCT glucose, docked (08/23/2019 11:39 AM EST) POC Glucose 245 (H) 70 - 140 mg/dL [facility] POC Specimen Whole Blood Performing Organization Address [facility] Phone Number POINT OF CARE TEST [address] [place] [address] [facility] POC [address] [place] [address] POCT glucose, docked (08/23/2019 7:45 AM EST) POC Glucose 114 70 - 140 mg/dL [facility] POC Specimen Whole Blood Performing Organization Address [facility] Phone Number POINT OF CARE TEST [address] [place] [address] [facility] POC [address] [place] [address] Hemoglobin A1c (08/23/2019 2:15 AM EST) Hemoglobin A1C 5.1 4.0 - 6.0 % [facility] Comment: Univ [facility] Confirmed Pathology (NOTE) <5.7% Average risk of diabetes(ADA) 5.7-6.4% Increased risk of diabetes(ADA) >/= 6.5% Diagnostic for diabetes(ADA) Estimated Avg 98 <126 mg/dL [facility] Glucose [facility] Pathology Specimen Whole Blood Performing Organization Address [facility] Phone Number [facility] PATHOLOGY [address] [place] [address] [phone] [facility] [address] [place] [address] Pathology Basic Metabolic Panel (08/23/2019 2:15 AM EST) Bicarbonate 23 22 - 29 [facility] mmol/L [facility] Path[facility] Chloride 107 98 - 107 [facility] mmol/L [facility] Pathology Creatinine 0.59 (L) 0.70 - 1.20 [facility] mg/dL [facility] Pathology Glucose 97 70 - 140 [facility] mg/dL [facility] Potassium 4.1 3.4 - 5.1 [facility] mmol/L [facility] Pathology Sodium 140 136 - 145 [facility] mmol/L [facility] Pathology Blood Urea Nitrogen 14 8 - 23 mg/dL [facility] Pathology Anion Gap 10 8 - 15 mmol/L [facility] Pathology Osmolality, Keron 290 275 - 300 [facility] mosm/kg [facility] Pathology BUN/Cre Ratio 24 [facility] Pathology Calcium 8.4 (L) 8.8 - 10.2 [facility] mg/dL [facility] Pathology GFR Non eGFR is not >60 [facility] [place] 2009 calculated in mL/min/1.73m2 [facility] CDK-EPI patients <18 or Pathology >80 years of age. GFR eGFR is not >60 [facility] [place] 2008 calculated in mL/min/1.73m2 [facility] CKD-EPI patients <18 or Pathology >80 years of age. Specimen Plasma Performing Organization Address [facility] Phone Number [facility] PATHOLOGY [address] [place] [address] [facility] [address] [place] [address] Pathology CBC and Differential (08/23/2019 2:15 AM EST) White Blood Cell 6.6 4 - 10 10*3/uL [facility] Pathology Red Blood Cell 3.48 (L) 4.6 - 6.1 [facility] 10*6/uL [facility] Hemoglobin 9.1 (L) 13.5 - 18 g/dL [facility] Pathology Hematocrit 28.6 (L) 41 - 53 % [facility] Pathology Mean Cell Volume 82.1 80 - 96 fL [facility] Pathology Mean Cell Hemoglobin 26.1 (L) 27 - 33 pg [facility] Pathology Mean Cell Hgb Conc 31.7 (L) 32.0 - 36.0 [facility] g/dL [facility] Pathology Red Cell Dist Width 29.0 (H) 11.5 - 14.5 % [facility] Pathology Platelet Count 170 150 - 400 [facility] 10*3/uL [facility] Differential Type Manual Diff [facility] Pathology Neutrophil 67 % [facility] Lymphocyte 28 % [facility] Pathology Monocyte 4 % [facility] Basophil 1 % [facility] Pathology Abs Neutrophil 4.44 1.8 - 7.0 [facility] 10*3/uL [facility] Abs Lymphocyte 1.84 1.2 - 4.0 [facility] 10*3/uL [facility] Abs Monocyte 0.25 0 - 0.8 [facility] 10*3/uL [facility] Abs Basophil 0.07 0 - 0.2 [facility] 10*3/uL [facility]ology Macrocytosis 1+ [facility] Pathology Anisocytosis 2+ [facility] Pathology Elliptocytes 1+ [facility] Pathology Microcytosis 1+ [facility] Pathology Poikilocytosis 2+ [facility] Pathology Specimen EDTA Whole Blood Performing Organization Address City/State/Zipcode Phone Number [facility] [address] [place] [address] [phone] [facility] [address] [place] [id number] Pathology POCT i-STAT ACT (08/22/2019 3:15 PM EST) i-Stat ACT 241 [facility] POC Specimen Whole Blood Performing Organization Address City/[facility] Number POINT OF CARE TEST [address] [place], [place] [id number] [place] [address] POC [address] [place] [address] POCT i-STAT ACT (08/22/2019 2:56 PM EST) i-Stat ACT 219 [facility] POC Specimen Whole Blood Performing Organization Address [facility] Phone Number POINT OF CARE TEST [address] [place] [address] [facility] POC [address] [place] [address] POCT i-STAT ACT (08/22/2019 2:45 PM EST) i-Stat ACT 197 [facility] POC Specimen Whole Blood Performing Organization Address [facility] Phone Number POINT OF CARE TEST [address] [place], [place] [id number] [place] [address] POC [address] [place] [address] Type and Crossmatch (08/22/2019 11:00 AM EST) ABO/RH(D) O NEG [facility] Pathology Gel Antibody Screen NEG [facility] Pathology Crossmatch 08/24/2019 [facility] Expiration [facility] Pathology Site Performed at [facility], E. [facility], [facility] Called to Called to Yan[facility], 1143, tjb. [facility]ology UNIT NUMBER [id number] [facility] Blood Component Leukoreduced Red [facility] Type Cell, 2nd Container [facility] Pathology Unit Division 00 [facility]ology STATUS OF UNIT REL FROM ALLOC [facility]ology TRANSFUSION STATUS OK TO TRANSFUSE [facility] Pathology CROSSMATCH RESULT Compatible [facility] Pathology UNIT NUMBER [id number] [facility] Pathology Blood Component Leukoreduced Red [facility] Type Cell, 2nd Container [facility] Pathology Unit Division 00 [facility] Pathology STATUS OF UNIT REL FROM ALLOC [facility] Pathology TRANSFUSION STATUS OK TO TRANSFUSE [facility] Pathology CROSSMATCH RESULT Compatible [facility] Pathology Specimen EDTA Whole Blood Performing Organization Address [facility] Phone Number [facility] [address] [place] [address] [phone] [facility] [address] [place] [address] Pathology CBC (08/22/2019 10:55 AM EST) White Blood Cell 5.8 4 - 10 10*3/uL [facility] Pathology Red Blood Cell 4.36 (L) 4.6 - 6.1 [facility] 10*6/uL [facility]ology Hemoglobin 11.7 (L) 13.5 - 18 g/dL [facility] Pathology Hematocrit 36.1 (L) 41 - 53 % [facility] Pathology Mean Cell Volume 82.8 80 - 96 fL [facility] Pathology Mean Cell Hemoglobin 26.8 (L) 27 - 33 pg [facility] Pathology Mean Cell Hgb Conc 32.4 32.0 - 36.0 [facility] g/dL [facility] Clin Pathology Red Cell Dist Width 28.7 (H) 11.5 - 14.5 % [facility] Pathology Platelet Count 184 150 - 400 [facility] 10*3/uL [facility] Pathology Specimen EDTA Whole Blood Performing Organization Address [facility] Phone Number [facility] [address] [place] [address] [facility] [address] [place] [phone] Pathology Basic Metabolic Panel (08/22/2019 10:55 AM EST) Bicarbonate 28 22 - 29 [facility] mmol/L [facility] Chloride 102 98 - 107 [facility] mmol/L [facility] Creatinine 0.66 (L) 0.70 - 1.20 [facility] mg/dL [facility] Glucose 120 70 - 140 [facility] mg/dL [facility] Potassium 3.9 3.4 - 5.1 [facility] mmol/L [facility] Sodium 140 136 - 145 [facility] mmol/L [facility]ology Blood Urea Nitrogen 14 8 - 23 mg/dL [facility] Pathology Anion Gap 10 8 - 15 mmol/L [facility] Pathology Osmolality, Keron 292 275 - 300 [facility] mosm/kg [facility] Pathology BUN/Cre Ratio 21 [facility] Pathology Calcium 9.6 8.8 - 10.2 [facility] mg/dL [facility] Pathology GFR Non eGFR is not >60 [facility] 2008 calculated in mL/min/1.73m2 [facility] CDK-EPI patients <18 or Pathology >80 years of age. GFR eGFR is not >60 [facility] 2008 calculated in mL/min/1.73m2 [facility] CKD-EPI patients <18 or Pathology >80 years of age. Specimen Plasma Performing Organization Address City/State/Zipcode Phone Number [facility] [address] [place] [address] [facility] [address] [place] [address] Pathology documented in this encounter Visit Diagnoses Diagnosis AAA (abdominal aortic aneurysm) without rupture - Primary Abdominal aneurysm without mention of rupture Aneurysm of left common iliac artery AAA (abdominal aortic aneurysm) Abdominal aneurysm without mention of rupture Iliac artery aneurysm, left Aneurysm of iliac artery COPD (chronic obstructive pulmonary disease) Chronic airway obstruction, not elsewhere classified HTN (hypertension) Unspecified essential hypertension DM (diabetes mellitus) Type II or unspecified type diabetes mellitus without mention of complication, not stated as uncontrolled documented in this encounter Administered Medications Medication Order MAR Action Action Date Dose Rate Site acetaminophen (TYLENOL) tablet Given 08/23/2019 8:40 AM EST 650 mg 650 mg 650 mg, Oral, Every 6 hours, First dose on Tue08/22/19 at 1900, For 30 days, Maximum daily dose of acetaminophen is 3,000 mg from all sources in 24 hours., Given 08/22/2019 8:23 PM EST 650 mg ceFAZolin (ANCEF) IVPB 1 g in New Bag 08/23/2019 6:08 AM EST 1 g 100 mL/ hr dextrose 5 % (premix) 1 g, Intravenous, Administer over 30 Minutes, Every 8 hours, First dose on Tue08/22/19 at 2130, For 24 hours, Kefzol. Run-in over 0.5 hrs. Rate 100 mL/hr., New Bag 08/22/2019 8:29 PM EST 1 g 100 mL/hr digoxin (LANOXIN) tablet 125 mcg Given 08/23/2019 8:40 AM EST 125 mcg 125 mcg, Oral, Daily Standard, First dose on Tue08/23/19 at 0900, For 30 days, Check vital signs before administering, docusate sodium (COLACE) capsule 100 mg Given 08/23/2019 8:40 AM EST 100 mg 100 mg, Oral, 2 Times Daily, First dose on Tue08/22/19 at 2100, For 30 days Given 08/22/2019 8:23 PM EST 100 mg heparin (porcine) 5000 UNIT/ML Given 08/23/2019 8:42 AM EST 5,000 Units injection 5,000 Units 5,000 Units, Subcutaneous, Three Times Daily Standard, First dose on Tue08/22/19 at 2100, For 30 days Given 08/22/2019 8:23 PM EST 5,000 Units ipratropium-albuterol (DUONEB) 0.5-2.5 (3) Given 08/23/2019 9:09 AM EST 3 mLs MG/3ML nebulizer solution 3 mL 3 mL, Nebulization, Every 8 hours, First dose on Tue08/23/19 at 0845, For 4 days, For Adults Q8 Hours is Hospital Standard, all orders will be changed to this unless ULISES is selected 'Yes' below., lovastatin (MEVACOR) tablet 40 mg Given 08/22/2019 10:31 PM EST 40 mg 40 mg, Oral, Nightly, First dose on Tue08/22/19 at 2200, For 7 doses oxyCODONE (ROXICODONE) immediate release tablet 2.5 mg 2.5 mg, Oral, Every 4 hours PRN, Moderate Pain (Pain Scale Score 4-6), Starting Tue08/22/19 at 1925, For 3 days, Oxycodone immediate release is limited to 10 mg per dose. Higher doses ([facility] only) require Pain Service consultation and approval., oxyCODONE (ROXICODONE) immediate release tablet 5 mg 5 mg, Oral, Every 4 hours PRN, Severe Pain (Pain Scale Score 7-10), Starting Tue08/22/19 at 1925, For 3 days, Oxycodone immediate release is limited to 10 mg per dose. Higher doses ([facility] only) require Pain Service consultation and approval., sodium chloride (preservative free) 0.9 % New Bag 08/23/2019 8:44 AM EST 3 mLs flush 3 mL 3 mL, Intravenous, Every 8 hours Standard (3 times per day), First dose on [place] 08/23/19 at 0100, For 30 days, Saline Lock. Flush Q8H and after each use to Saline Lock., sodium chloride (preservative free) 0.9 % flush 3 mL 3 mL, Intravenous, PRN, Line Care, Starting Tue08/22/19 at 1857, For 30 days, Saline Lock. Flush Q8H and after each use to Saline Lock., Medication Order MAR Action Action Date Dose Rate Site albuterol (PROVENTIL) nebulizer Given 08/22/2019 8:45 PM EST 2.5 mg solution 2.5 mg 2.5 mg, Nebulization, 2 Times Daily, First dose on Tue08/22/19 at 2100, For 4 days ipratropium (ATROVENT) 0.02 % nebulizer Given 08/22/2019 8:45 PM EST 0.5 mg solution 0.5 mg 0.5 mg, Nebulization, 2 Times Daily, First dose on Tue08/22/19 at 2100, For 4 days NaCl infusion 0.9 % New Bag 08/22/2019 10:45 AM EST 100 mLs 100 mL/hr at 100 mL/hr, Intravenous, Continuous, Starting Tue08/22/19 at 1030, For 6 hours, Pre-op documented in this encounter
--- OUTSIDE RECORDS SUMMARY | 2019-09-25 08:44 | XMS REPORT | Continuity of Care Document ---
:1930 External Reference #:[id number] Author Name Zabrina Smith M.D., FACP (transmitted by agent of provider Maira Washington) Address [address], [place] [address] Problems Active Problems Provider Date Chronic obstructive [...] Use Denies Drug Use Smoking Status Reviewed: 07/27/19 Patient is a former smoked for 45+ smoker years, 1ppd, quit in 1999 Exercise Type/Frequency Does not exercise Allergies, Adverse Reactions, Alerts Description No Known Drug Allergies Medications Active Medications SIG Qnty Indications Ordering Date Provider Ferrous Sulfate 1 by mouth every 90tabs Zabrina Smith, 07/27/2019 day Vinicius, FACP 325(65Fe) mg Tablets Lisinopril-Hydrochlo Take 1 Tablet By 90tabs Pawel EDennis 08/11/2017 rothiazide Mouth Every Day Vinicius Herring [...] Nebulizer for use 4 times QS Pawel Hinojosa 09/30/2015 Kit/Tubing/Mouthpiec daily as needed Vinicius Herring e Kit Digox 1 by mouth every 90tabs R94.31 Rocael D. 09/04/2015 125mcg Tablets day Vinicius Ayala Eliquis 1 tablet by mouth 180tabs R94.31 Pawel Hinojosa 09/04/2015 2.5mg Tablets twice a day- Vinicius Herring blood thinner. I48.2 Ipratropium [place] inhale the contents 150ml Pawel Hinojosa 09/01/2015 0.02% of one vial via Vinicius Herring Solution nebulizer twice a day Budesonide 1 dose twice a day 60units Pawel Hinojosa 09/01/2015 0.5mg/2ML Suspension via nebulizer ( Vinicius Herring used as needed ) Brovana 1 dose by nebulizer 60units J44.9 Pawel Styles. 09/01/2015 15mcg/2ML Nebulizer twice a day Vinicius Herring Oxygen please use o2 at 1units Pawel Hinojosa 08/13/2015 Misc 2l/min during Vinicius Herring exertion. please provide pt with portable o2 concentrator Albuterol Sulfate via/nebulizer use q 100units Pawel Hinojosa 10/22/2009 (2.5mg/3ML) 4-6 hrs prn Vinicius Herring 0.083% Nebulizer shortness of breath Lovastatin take 1 tablet by 90tabs Pawel Hinojosa 10/22/2009 40mg Tablets mouth every night Vinicius Herring at bedtime Aleve 1 po qam prn Pawel Hinojosa 01/10/2008 220mg Tablets Vinicius Herring Oxygen Concentrator used continuous at Unknown night Compression Stockings 11/16/18 reports Unknown Misc doesn't wear 20-30 MMHG Knee Highs Tylenol 2 tablets every 4 Unknown 325mg Capsules hours as needed for pain Hydrochlorothiazide 1 by mouth every Unknown 12.5mg day Tablets Medications Administered in Office Medication SIG Qnty Indications Ordering Provider Date Yvette 40MG Rema Gonzalez M.D. 05/21/2019 Injection Niviaomedrol 40MG Rema Gonzalez M.D. 05/21/2019 Injection Niviaomedrol DEVAN Gonzalez M.D. 02/16/2019 Injection Quintonrol DEVAN Gonzalez M.D. 02/16/2019 Injection Depomedrol 40MG Rema Gonzalez M.D. 2018 Injection Quintonrol DEVAN Gonzalez M.D. 2018 Injection Quintonrol DEVAN Gonzalez M.D. 08/14/2018 Injection Niviaomedrol 40MG Rema Gonzalez M.D. 08/14/2018 Injection Niviaomedrol DEVAN Gonzalez M.D. 05/05/2018 Injection Niviaomedrol 40MG Rema Gonzalez M.D. 05/05/2018 Patricia Alcantararol DEVAN Gonzalez M.D. 01/27/2018 Patricia Alcantararol DEVAN Gonzalez M.D. 01/27/2018 Patricia Alcantararol DEVAN Gonzalez M.D. 10/28/2017 Injection Niviaomedrol 40MG Rema Gonzalez M.D. 10/28/2017 Injection Depomedrol 40MG Rema Gonzalez M.D. 07/29/2017 Injection Depomedrol 40MG Rema Gonzalez M.D. 07/29/2017 Injection Depomedrol 40MG Rema Gonzalez M.D. 04/27/2017 Injection Depomedrol 40MG Rema Gonzalez M.D. 04/27/2017 Injection Quintonrol 40MG Rema Gonzalez M.D. 01/24/2017 Injection Depomedrol 40MG Rema Gonzalez M.D. 01/24/2017 Injection Depomedrol 40MG Rema Gonzalez M.D. 10/27/2016 Injection Depomedrol 40MG Rema Gonzalez M.D. 10/27/2016 Injection Triamcinolone (Kenalog) Rema Gonzalez M.D. 07/28/2016 Injection Triamcinolone (Kenalog) Rema Gonzalez M.D. 07/28/2016 Injection Quintonrol 40MG Rema Gonzalez M.D. 03/29/2016 Injection Depomedrol 40MG Rema Gonzalez M.D. 12/26/2015 Injection Depomedrol 40MG Rema Gonzalez M.D. 12/26/2015 Injection Depomedrol 40MG Rema Gonzalez M.D. 09/24/2015 Injection Depomedrol 80MG Rema Gonzalez M.D. 06/16/2015 Injection Depomedrol 80MG Rema Gonzalez M.D. 03/31/2015 Injection Influenza Virus Vaccine Unknown 03/18/2014 Injection Influenza Virus Vaccine Unknown 04/17/2013 Injection Immunizations CPT Code Status Date Vaccine Lot # [id number] Given 04/10/2019 Influenza Virus Vaccine, Quadrivalent, Split, Preservative Free 02717 Given 04/15/2017 Influenza Virus Vaccine, Quadrivalent, Split, Preservative Free 49451 Given 04/21/2016 Fluzone High Dose Q2039 Given 04/21/2015 Flu Vaccine NOS 69148 Given 04/30/2014 Pneumococcal Conjugate Vaccine 13 Valent For [id number] Intramuscular Use 51096 Given 07/18/2013 Zoster (Zostavax) 69062 Given 12/04/2012 Tdap - Tetanus/Diptheria/Acellular Pertussis [id number] Q2038 Given 04/24/2012 Fluzone Vaccine [id number] Q2038 Given 04/21/2011 Fluzone Vaccine [id number] 93707 Given 07/25/2009 Influenza Virus Vaccine, Pandemic Formulation [id number] 45155 Given 07/25/2009 Administration Swine Flu Shot 71873 Given 04/12/2008 Influenza Virus 3Yrs & Over 56380 Given 04/12/2008 Influenza Virus 3Yrs & Over 38731 Given 04/25/2007 Influenza Virus 3Yrs & Over 70458 Given 11/06/2002 Td (History By Patient) 98222 Given 10/22/2002 Pneumovax (History By Patient) Vital Signs Date Vital Result Comment 07/27/2019 10:24am Height 68.5 inches 5'8.50" Weight 178.00 lb Heart Rate 64 /min BP Systolic Sitting 128 mmHg Lue reg cuff BP Diastolic Sitting 70 mmHg Lue reg cuff BMI (Body Mass Index) 26.7 kg/m2 05/21/2019 9:44am Height 68.5 inches 5'8.50" Weight 155.00 lb stated Heart Rate 68 /min BP Systolic 106 mmHg BP Diastolic 64 mmHg Respiratory Rate 12 /min Pain Level 0 BMI (Body Mass Index) 23.2 kg/m2 Results Test Acquired Date Facility Test Result H/L Range Note CBC Auto 07/14/2019 [facility] Red Blood 3.81 10^6/uL Low 4.18 -5.[address] [place] [address] [phone] White Blood Count 8.1 10^3/uL Normal 3.5-10.8 Hemoglobin 7.7 g/dL Low 14.0-18.0 Hematocrit 26 % Low 42-52 Mean Corpuscular Volume 68 fL Low 80-94 Mean Corpuscular Hemoglobin 20 pg Low 27-31 Mean Corpuscular HGB Conc 30 g/dL Low 31-36 Red Cell Distribution Width 21 % High 10-15 Platelet Count 192 10^3/uL Normal 150-450 Mean Platelet Volume 8.5 fL Normal 7.4-10.4 Abs Neutrophils 4.3 10^3/uL Normal 1.5-7.7 Abs Lymphocytes 2.6 10^3/uL Normal 1.0-4.8 Abs Monocytes 1.0 10^3/uL High 0-0.8 Abs Eosinophils 0.1 10^3/uL Normal 0-0.6 Abs Basophils 0.0 10^3/uL Normal 0-0.2 Abs Nucleated RBC 0.0 10^3/uL Granulocyte % 53.3 % Lymphocyte % 32.5 % Monocyte % 12.1 % Eosinophil % 1.6 % Basophil % 0.5 % Nucleated Red Blood Cells % 0.1 Retic Count 07/14/2019 [facility] Retic Count 1.6 % High 0.5- 1.[address] [place] [address] [phone] Mean Retic Volume 104.1 Immature Retic Fraction 0.49 RBC Retic Count 3.81 10^6/uL Low 4.18-5.48 Corrected Retic Count 0.9 % Normal 0.5-1.5 Maturation Factor Retic 2.0 Retic Index 0.50 Hematocrit for Retic CNT 26 % Low 42-52 Laboratory 07/14/2019 [facility] Troponin-I 0.03 ng/mL Critical <0.03 1 test finding [facility] [employer] (TnI) [place], [place] [id number] [phone] Laboratory 07/14/2019 [facility] Troponin-I 0.03 ng/mL Critical <0.03 2 test finding [facility] [employer] (TnI) [place] [address] [phone] Laboratory 07/13/2019 [facility] Packed Cells SEE RESULTS 3 , test finding [facility] [employer] BELO <SEE [address] [place] [address] NOTE> [phone] Type & Screen 07/13/2019 [facility] Patient Blood O Negative [facility] [address] [place] [address] [phone] Antibody Screen NEGATIVE Laboratory test 07/13/2019 [facility] Pathologist Review (SEE NOTE) 5 finding [facility] [place] [address] [phone] Cell Morphology 07/13/2019 [facility] Microcytosis 2+ [facility] [place] [place] [address] [phone] Hypochromasia 1+ Polychromasia 1+ Anisocytosis 2+ Laboratory 07/13/2019 [facility] Troponin-I 0.08 Critical < 0.03 6 test finding [facility] [employer] (TnI) ng/[place] [address] [phone] Comp Metabolic 07/13/2019 [facility] Sodium 138 Normal 135- [address] mmol/[place] [address] [phone] Potassium 4.3 mmol/L Normal 3.5-5.0 Chloride 104 mmol/L Normal 101-111 Co2 Carbon Dioxide 28 mmol/L Normal 22-32 Anion Gap 6 mmol/L Normal 2-11 Glucose 121 mg/dL High 70-100 Blood Urea Nitrogen 18 mg/dL Normal 6-24 Creatinine 0.70 mg/dL Normal 0.67-1.17 BUN/Creatinine Ratio 25.7 High 8-20 Calcium 9.7 mg/dL Normal 8.6-10.3 Total Protein 6.5 g/dL Normal 6.4-8.9 Albumin 4.2 g/dL Normal 3.2-5.2 Globulin 2.3 g/dL Normal 2-4 Albumin/Globulin Ratio 1.8 Normal 1-3 Total Bilirubin 0.90 mg/dL Normal 0.2-1.0 Alkaline Phosphatase 65 U/L Normal 34-104 Alt 10 U/L Normal 7-52 Ast 16 U/L Normal 13-39 Egfr Non- 106.2 >60 Egfr 128.5 >60 7 CBC Auto 07/13/2019 [facility] White Blood 8.6 10^3/uL Normal 3.5-10.[address] [place] [address] [phone] Red Blood Count 3.91 10^6/uL Low 4.18-5.48 Hemoglobin 7.9 g/dL Low 14.0-18.0 Hematocrit 26 % Low 42-52 Mean Corpuscular Volume 68 fL Low 80-94 Mean Corpuscular Hemoglobin 20 pg Low 27-31 Mean Corpuscular HGB Conc 30 g/dL Low 31-36 Red Cell Distribution Width 21 % High 10-15 Platelet Count 211 10^3/uL Normal 150-450 Mean Platelet Volume 8.8 fL Normal 7.4-10.4 Abs Neutrophils 4.6 10^3/uL Normal 1.5-7.7 Abs Lymphocytes 2.9 10^3/uL Normal 1.0-4.8 Abs Monocytes 1.0 10^3/uL High 0-0.8 Abs Eosinophils 0.1 10^3/uL Normal 0-0.6 Abs Basophils 0.0 10^3/uL Normal 0-0.2 Abs Nucleated RBC 0.0 10^3/uL Granulocyte % 52.9 % Lymphocyte % 33.2 % Monocyte % 11.8 % Eosinophil % 1.6 % Basophil % 0.5 % Nucleated Red Blood Cells % 0.1 Stool Occult 07/13/2019 [facility] Stool Occult SEE RESULT 8 Blood, Screen [address] Blood, [place] [address] [phone] Laboratory test 07/13/2019 [facility] B-Type 287 pg/mL High <= [address] Natriuretic 0 [place] [address] Peptide BNP [phone] Abo/RH Type 07/13/2019 [facility] Patient Blood O Negative [address] [place] [address] [phone] CBC Auto Diff 03/27/2019 [facility] White Blood 9.7 10^3/uL Normal 3.5- [address] Count 10.8 [place] [address] [phone] Red Blood Count 3.95 10^6/uL Low 4.18-5.48 [...] Blood Cells % 0.1 Comp Metabolic 03/27/2019 [facility] Sodium 139 mmol/L Normal 135-[address] [place] [address] [phone] Potassium 4.9 mmol/L Normal 3.5-5.0 Chloride 105 [...] Egfr Non- 124.5 >60 Egfr 150.6 >60 9 Laboratory test 03/27/2019 [facility] CRP High 3.96 mg/L High <2.[address] [place] [address] [phone] Laboratory test 03/21/2019 [facility] In House Hemoglobin A1c 6.2 5-7 finding 1 Result TnIDx:0.03 Called to [id number] at: 03:14:07 by:[id number] Read back by: [id number] Troponin-I testing on Plasma Separator Tubes (PST) has a known false positive rate of 0.20-0.40%. All positive troponins reflex immediately to secondary confirmatory testing. Using the [employer] DxI 800 Access Immunoassay systems, the 99th percentile upper reference limit was demonstrated to be < 0.03 ng/mL. 2 Result TnIDx:0.03 Called to [id number] at: 00:52:42 by:[id number] Read back by:[id number] Troponin-I testing on Plasma Separator Tubes (PST) has a known false positive rate of 0.20-0.40%. All positive troponins reflex immediately to secondary confirmatory testing. Using the [employer] DxI 800 Access Immunoassay systems, the 99th percentile upper reference limit was demonstrated to be < 0.03 ng/mL. 3 SOB/AFIB PER PT 4 SEE RESULTS BELOW [id number] ON PC TRANSFUSED 07/15/19 1145 5 Microcytic anemia with red cell indices suggestive of iron deficiency. Additional studies as clinically warranted. Reviewed by Dr. Montelongo 6 Result TnIDx:0.08 Called to [id number] at: 20:25:39 by:[id number] Read back by: [id number] Troponin-I testing on Plasma Separator Tubes (PST) has a known false positive rate of 0.20-0.40%. All positive troponins reflex immediately to secondary confirmatory testing. Using the [employer] DxI 800 Access Immunoassay systems, the 99th percentile upper reference limit was demonstrated to be < 0.03 ng/mL. 7 Because ethnic data is not always readily [...] 15-29 5 Kidney failure <15 (or dialysis) 8 SEE RESULT BELOW Name: VASUAIDAN Stephani : [address]: Rico Reynoso MD Acct: [id number] Unit: [id number] AGE: 88 Location: ED Re07/13/19 SEX: M Status: REG ER SPEC: [id number] MAYUR: 07/13/[address]: James TRAORE REQ: [id number] RECD: 07/13/19 STATUS: NIKKO BACK DR: Rico Herring III, MD _ SOURCE: STOOL SPDESC: ORDERED: Occult Bl, Scn Procedure Result Reported Site Stool Occult Blood (1) Final 07/13/19- 2049 ML Stool Occult Blood Negative * ML - Main Lab . END OF REPORT DEPARTMENT OF PATHOLOGY, [address] [place] [address] Harlan Montelongo M.D. Director [facility] # [id number] 9 Because ethnic data is not always readily [...] (or dialysis) Procedures Date Code Description Status 07/16/2019 28581 ECHO Transthorasic Realtime 2D W Doppler & Color Flow Completed Hosp 07/14/2019 00471 EKG, Interpretation Only Completed 05/21/2019 67925 Inject/Drain Joint/Bursa Major W/O US Completed 02/16/2019 54036 Inject/Drain Joint/Bursa Major W/O US Completed 01/04/2019 [id number] Diabetic Foot Exam Completed 10/17/2018 117497627 Bone Mineral Density Test Completed 03/06/2001 72175446 Colonoscopy Completed Medical Devices Description No Information Available Encounters Type Date Location Provider Dx Diagnosis Office Visit 07/15/2019 [facility] Emely Mckay, D64.9 Anemia, 12:04p Assoc,pc [employer] unspecified Hospitalists 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 07/14/2019 R06.02 Shortness of breath Juhi Pitts M.D. 07/14/2019 R60.0 Localized edema Juhi Pitts M.D. 05/21/2019 M25.561 Pain in right knee Rema [...] Rema Gonzalez M.D. 02/16/2019 M25.461 Effusion, right knee Rema Gonzalez M.D. 02/16/2019 M25.462 Effusion, left knee Rema Gonzalez M.D. 02/16/2019 M17.0 Bilateral primary osteoarthritis of knee Rema Gonzalez M.D. Plan of Treatment Future Appointment(s):08/20/2019 9:30 am - Rema Gonzalez M.D. at [facility] at [id number]/20/2019 9:20 am - Pawel Herring M.D. at [facility] Internal Medicine - [facility]07/27/2019 - Zabrina Smith M.D., FACPZ01.818 Encounter for other preprocedural examinationComments:MEDICAL CLEARANCE PRIOR TO SURGERY: Today we talked about the risks of surgery possibly outweighing the benefits.I will discuss your case with Nevaeh Alfaro and Sebastián.I think it would be a good ideato have an office visit with Dr. Ayala prior to the surgery.I would like to obtain some labs today, I understand that you would prefer not to do them without Dr. Herring's ok.Follow up:as kizvxyI04.9 Heart failure, unspecifiedComments:Hemodynamically stable. On maximal medical therapy. Currently appears mildly fluid overloaded.Sodium restriction advised.I72.3 Aneurysm of iliac mmetquA72.9 Iron deficiency anemia, ibqfaurupsvM28 Essential ( primary) hypertensionNew Orders:Stress Test, Pharmacologic Nuclear (Lexiscan), Ordered: 07/27/19Comments:HYPERTENSION:Well controlled on current regimen. Continue present management.I48.20 Chronic atrial fibrillation, qwkhbnhyxddY69.9 Type 2 diabetes mellitus without leelpadkurnnaQ15.9 Chronic obstructive pulmonary disease, pjmtokzquyoB46.818 Encounter for other preprocedural examinationComments:MEDICAL CLEARANCE PRIOR TO SURGERY:Today we talked about the risks of surgery possibly outweighing the benefits.I will discuss your case with Nevaeh Alfaro and Seabstián.I think it would be a good ideato have an office visit with Dr. Ayala prior to the surgery.I would like to obtain some labs today, I understand that you would prefer not to do them without Dr. Herring's ok.Follow up:as dwimarV44.9 Heart failure, unspecifiedComments:Hemodynamically stable. On maximal medical therapy. Currently appears mildly fluid overloaded.Sodium restriction advised.I72.3 Aneurysm of iliac vjmfgdS86.9 Iron deficiency anemia, rkjmsxownlrN58 Essential ( primary) hypertensionNew Orders:Stress Test, Pharmacologic Nuclear (Lexiscan), Ordered: 07/27/19Comments:HYPERTENSION:Well controlled on current regimen. Continue present management.I48.20 Chronic atrial fibrillation, xfgrxldkflgD74.9 Type 2 diabetes mellitus without wkwyushciwuvaR28.9 Chronic obstructive pulmonary disease, unspecified Functional Status Description No Information Available Mental Status Description No Information Available Referrals Description No Information Available
--- NOTE | 2019-09-25 09:08 | UC ---
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 No loc. C/o pain in back, not better, getting worse. Seen 09/19/19 by ortho for routine knee injections, R hip xray at that time - s/p arthrplasty, but no fx / disl Take eliquis d/t a-fibrillation. No urine leakage. No bowel leakage. + constipation. No rash. No new weakness, but too painful to walk. Has used walker for short, necessary distances, but has been sitting in recliner all day. No new cp. + weak. No new cough. No abd pain Recently s/p R inguinal aneurysm Dr. Sebastián hidalgo. Plans for upcoming abd aneurysm repair but not scheduled yet. - History of Current Complaint Chief Complaint: UCBackPain Stated Complaint: FALL/BACK PAIN Time Seen by Provider: 09/25/19 09:08 Hx Obtained From: Patient Pain Intensity: 10 - Allergy/Home Medications Allergies/Adverse Reactions: Allergies Allergy/AdvReac Type Severity Reaction Status Date / Time No Known Allergies Allergy Verified 09/25/19 08:49 Home Medications: Home Medications Lovastatin(NF) [Mevacor(NF)] 40 mg PO BEDTIME 07/28/15 [History Confirmed ] Lisinopril/HCTZ 20/12.5(NF) [Zestoretic 20/12.5(NF)] 1 tab PO DAILY 11/19/17 [ History Confirmed 09/25/19] Apixaban* [Eliquis*] 5 mg PO BID tab 12/13/17 [Rx Confirmed 09/25/19] Famotidine TAB* [Pepcid 20 MG TAB*] 20 mg PO DAILY tab 12/13/17 [Rx Confirmed 09/25/19] metFORMIN* [Glucophage 500 MG TAB *] 500 mg PO DAILY 03/27/19 [History Confirmed 09/25/19] Digoxin TAB* [Lanoxin TAB*] 0.125 mg PO DAILY 07/13/19 [History Confirmed ] Ferrous Sulfate TAB* 325 mg PO DAILY #30 tab 07/16/19 [Rx Confirmed 09/25/19] Hydrochlorothiazide TAB* [Hydrodiuril TAB*] 12.5 mg PO DAILY tab 07/16/19 [Rx Confirmed 09/25/19] PMH/Surg Hx/FS Hx/Imm Hx Previously Healthy: No - see below and see hpi - Surgical History Surgical History: Yes Surgery Procedure, Year, and Place: RIGHT HIP PATIENT UNSURE - Family History Known Family History: Positive: Diabetes, Non-Contributory Negative: Cardiac Disease, Hypertension - Social History Alcohol Use: Daily Substance Use Type: None Smoking Status (MU): Former Smoker Type: Cigarettes Length of Time of Smoking/Using Tobacco: 40+ YEARS OF SMOKING When Did the Patient Quit Smoking/Using Tobacco: 20 yrs - Immunization History Most Recent Influenza Vaccination: 2018 fall Most Recent Tetanus Shot: unknown Most Recent Pneumonia Vaccination: 2013 Hx Tetanus, Diphtheria Vaccination: Yes - 2010 Vaccination Up to Date: Yes Review of Systems All Other Systems Reviewed And Are Negative: Yes Constitutional: Positive: Fatigue Skin: Positive: Negative Eyes: Positive: Negative ENT: Positive: Negative Respiratory: Positive: Other - see hpi Cardiovascular: Positive: Other - see hpi Gastrointestinal: Positive: Other - see hpi Genitourinary: Positive: Other - see hpi Motor: Positive: Other - see hpi Neurovascular: Positive: Other - see hpi Musculoskeletal: Positive: Other: - see hpi Neurological/Mental Status: Positive: Other - see hpi Psychological: Positive: Negative Is Patient Immunocompromised?: No Physical Exam Triage Information Reviewed: Yes Appearance: Pain Distress - pleasant, but in pain with examination, Thin Vital Signs: Initial Vital Signs Temp 98.3 F 09/25/19 08:46 Pulse 91 09/25/19 08:46 Resp 20 09/25/19 08:46 BP 122/82 09/25/19 08:46 Pulse Ox 99 09/25/19 08:46 Vital Signs Reviewed: Yes Eye Exam: Normal ENT Exam: Normal Neck exam: Other - nontender + arthritic appearance Respiratory Exam: Other - BS decreased bilat. Hurts to take deep breath Cardiovascular Exam: Other - Irreg irreg hr, correlateswith L radial pulse. + abd + an palpated, c/w hx R groin- no acute hematoma / swelling. R lat hip + ecchymis, mild tender. Abdominal Exam: Other - see above Kyphotic Tender annabelle lower Thoracic spine area. Musculoskeletal Exam: Other - + BLE edema 2+ venous varicosities, flaky skin palp DP bilat Neurological Exam: Other - no focal weakness / no b/b leakage Psychological Exam: Normal - nad Skin Exam: Normal - see above no visible or reported rash nondiaphoretic Eccymoses as above Course/Dx - Course Course Of Treatment: 10:37 - reports pendiing. Request pain medication. Took pain medication (sounds like norco) last 2 days (not sure what it is). Most recently yesterday. reports that full dose helped, 1/2 dose [address]. Review[address] reports Lumbar and Thoracic. [+ compression fx T12, 50% vertebral height loss Also noted pleural effusion R I spoke with Dr. Chew. He can evaluate in ED here. D/w pt and family. Will send to ED via EMS, they are ok via ems. I spoke with Shirley TRAORE [facility] ED. - Diagnoses Provider Diagnosis: Compression fracture, Pleural effusion Discharge ED - Sign-Out/Discharge Documenting (check all that apply): Patient Departure All imaging exams completed and their final reports reviewed: Yes - Discharge Plan Condition: Guarded Disposition: ADMITTED TO [facility] Patient Education Materials: Vertebral Compression Fracture (ED), Pleural Effusion (ED) Referrals: Pawel Herring MD [Primary Care Provider] - - Billing Disposition and Condition Condition: GUARDED Disposition: Admitted to [facility]
[2019-09-25] MEDS ORDERED: HYDROcodone/ACETAMIN 5-325 MG* 1 TAB PO ONE (10:38)
[2019-09-25 11:01] VITALS: BP 116/72
== END 2019-09-25 12:23 | disposition short-term general hospital (02) ==
LOC: UCEAST 08:37
DX: S22.089A Unspecified fracture of T11-T12 vertebra, initial encounter for closed fracture (principal); J90 Pleural effusion, not elsewhere classified; Z79.01 Long term (current) use of anticoagulants; Z87.891 Personal history of nicotine dependence; Z96.641 Presence of right artificial hip joint; W18.30XA Fall on same level, unspecified, initial encounter; Y92.9 Unspecified place or not applicable
CPT/HCPCS: 72128; 72131; 99213; G0463

== ENCOUNTER 2019-09-25 12:41 | Inpatient (IN) | payer MEDICARE ==
[2019-09-25] MEDS ORDERED: Albuterol/Ipratropium NEB.SOL* Albuterol 2.5 MG/Ipratropium 0.5 MG 3 ML INH ONE (12:49)
--- NOTE | 2019-09-25 12:51 | ED ---
Back Pain - HPI Summary HPI Summary: This patient is an 88 y/o male presenting to [facility] via EMS from [facility] for low back pain s/p fall on September 18, 2019. Patient states he was was walking to his bedroom on 09/18/19 when he slipped and fell on his back. Denies head strike or LOC. Patient reports his low back pain has not been getting better since his fall and has actually been getting worse. Patient went to Urgent Care today where he had CTs done and was given [place] for the pain. Per EMS CTs showed acute compression fracture at T12 and right pulmonary effusion. Patient reports he has some shortness of breath. He denies fever, chest pain, abdominal pain. Per EMS patient's low back pain was not aggravated with bumps on the road. He states he uses oxygen at night time at home due to COPD. Patient lives at home with his and grandson. PMHx includes afib, HTN, COPD, abdominal aortic aneurysm. He notes "part of" his aneurysm was repaired by Dr. Lowery in [facility] and states he has plans to have his other aneurysm repaired. Patient is anticoagulated on Eliquis. Home Medications Medication Instructions Recorded Confirmed Type Lovastatin(NF) [Mevacor(NF)] 40 mg PO BEDTIME 07/28/15 09/25/19 History Lisinopril/HCTZ 06/07.5(NF) 1 tab PO DAILY 11/19/17 09/25/19 History [Zestoretic 06/07.5(NF)] Famotidine TAB* [Pepcid 20 MG TAB*] 20 mg PO DAILY tab 12/13/17 09/25/19 Rx metFORMIN* [Glucophage 500 MG TAB 1,000 mg PO BID 03/27/19 09/25/19 History *] Digoxin TAB* [Lanoxin TAB*] 0.125 mg PO DAILY 07/13/19 09/25/19 History Ferrous Sulfate TAB* 325 mg PO DAILY #30 tab 07/16/19 09/25/19 Rx Hydrochlorothiazide TAB* 12.5 mg PO DAILY tab 07/16/19 09/25/19 Rx [Hydrodiuril TAB*] Acetaminophen TAB* [Tylenol TAB*] 650 mg PO Q4H PRN 09/25/19 09/25/19 History Apixaban* [Eliquis*] 2.5 mg PO BID 09/25/19 09/25/19 History Arformoterol (NF) [Brovana(NF)] 15 mcg INH BID 09/25/19 09/25/19 History Budesonide NEB* [Pulmicort NEB*] 0.5 mg INH BID 09/25/19 09/25/19 History Ipratropium 0.5MG/2.5ML NEB* 0.5 mg INH BID 09/25/19 09/25/19 History [Atrovent 0.5 MG NEB.ERIN*] Naproxen Sodium [Aleve] 220 mg PO QAM PRN 09/25/19 09/25/19 History - History of Current Complaint Chief Complaint: EDBackInjuryPain Stated Complaint: FALL/BACK PAIN PER EMS Hx Obtained From: Patient, EMS Onset/Duration: Lasting Days, Still Present Onset/Duration: Started Days Ago, Still Present Timing: Lasting Days Back Pain Location: Is Discrete @ - low back Severity Currently: Severe Pain Intensity: 7 Pain Scale Used: 0-10 Numeric Aggravating Symptom(s): Movement Alleviating Symptom(s): Rest Associated Signs And Symptoms: Negative: Fever, Weakness, Numbness, Tingling, Abdominal Pain, Bladder Incontinence, Bowel Incontinence - Allergies/Home Medications Allergies/Adverse Reactions: Allergies Allergy/AdvReac Type Severity Reaction Status Date / Time No Known Allergies Allergy Verified 09/25/19 08:49 Home Medications: Home Medications Lovastatin(NF) [Mevacor(NF)] 40 mg PO BEDTIME 07/28/15 [History Confirmed ] Lisinopril/HCTZ 20/12.5(NF) [Zestoretic 20/.5(NF)] 1 tab PO DAILY 11/19/17 [ History Confirmed 09/25/19] Famotidine TAB* [Pepcid 20 MG TAB*] 20 mg PO DAILY tab 12/13/17 [Rx Confirmed 09/25/19] metFORMIN* [Glucophage 500 MG TAB *] 1,000 mg PO BID 03/27/19 [History Confirmed 09/25/19] Digoxin TAB* [Lanoxin TAB*] 0.125 mg PO DAILY 07/13/19 [History Confirmed ] Ferrous Sulfate TAB* 325 mg PO DAILY #30 tab 07/16/19 [Rx Confirmed 09/25/19] Hydrochlorothiazide TAB* [Hydrodiuril TAB*] 12.5 mg PO DAILY tab 07/16/19 [Rx Confirmed 09/25/19] Acetaminophen TAB* [Tylenol TAB*] 650 mg PO Q4H PRN 09/25/19 [History Confirmed 09/25/19] Apixaban* [Eliquis*] 2.5 mg PO BID 09/25/19 [History Confirmed 09/25/19] Arformoterol (NF) [Brovana(NF)] 15 mcg INH BID 09/25/19 [History Confirmed 09/24] Budesonide NEB* [Pulmicort Neb*] 0.5 mg INH BID 09/25/19 [History Confirmed 05/06] Ipratropium 0.5MG/2.5ML NEB* [Atrovent 0.5 MG NEB.ERIN*] 0.5 mg INH BID 09/25/19 [History Confirmed 09/25/19] Naproxen Sodium [Aleve] 220 mg PO QAM PRN 09/25/19 [History Confirmed 09/25/19] PMH/Surg Hx/FS Hx/Imm Hx Endocrine/Hematology History: Reports: Hx Diabetes - on metformin Denies: Hx Thyroid Disease Cardiovascular History: Reports: Hx Atrial Fibrillation, Hx Congestive Heart Failure, Hx Hypercholesterolemia, Hx Hypertension Respiratory History: Reports: Hx Chronic Obstructive Pulmonary Disease (COPD) Denies: Hx Asthma GI History: Reports: Hx Gastrointestinal Bleed Denies: Hx Ulcer History: Denies: Hx Renal Disease Comment Only: Other Problems/Disorders - hx admission for uti Musculoskeletal History: Reports: Hx Arthritis, Hx Back Problems Sensory History: Reports: Hx Contacts or Glasses, Hx Vision Problem, Hx Deafness , Hx Hearing Problem Denies: Hx Hearing Aid Opthamlomology History: Reports: Hx Contacts or Glasses, Hx Vision Problem Neurological History: Denies: Other Neuro Impairments/Disorders - confusion - Surgical History Surgical History: Yes Surgery Procedure, Year, and Place: RIGHT HIP PATIENT UNSURE Hx Anesthesia Reactions: No Infectious Disease History: No Infectious Disease History: Denies: Hx Clostridium Difficile, Hx Hepatitis, Hx Human Immunodeficiency Virus (HIV), Hx of Known/Suspected MRSA, Hx Shingles, Hx Tuberculosis, Hx Known/ Suspected VRE, Hx Known/Suspected VRSA, History Other Infectious Disease, Traveled Outside the [place] in Last 30 Days - Family History Known Family History: Positive: Diabetes Negative: Cardiac Disease, Hypertension - Social History Alcohol Use: Daily Substance Use Type: Reports: None Hx Tobacco Use: No Smoking Status (MU): Former Smoker Type: Cigarettes Length of Time of Smoking/Using Tobacco: 40+ YEARS OF SMOKING Review of Systems Negative: Fever Negative: Chest Pain Positive: Shortness Of Breath Negative: Abdominal Pain Musculoskeletal: Other - POSITIVE: lower back pain All Other Systems Reviewed And Are Negative: Yes Physical Exam - Summary Physical Exam Summary: VITAL SIGNS: Reviewed. GENERAL: Patient is a well-developed and nourished male who is lying comfortable in the stretcher. Patient is not in any acute respiratory distress. HEAD AND FACE: No signs of trauma. No ecchymosis, hematomas or skull depressions. No sinus tenderness. EYES: PERRLA, EOMI x 2, No injected conjunctiva, no nystagmus. EARS: Hearing grossly intact. Ear canals and tympanic membranes are within normal limits. MOUTH: Oropharynx within normal limits. NECK: Supple, trachea is midline, no adenopathy, no JVD, no carotid bruit, no c- spine tenderness, neck with full ROM. CHEST: Symmetric, no tenderness at palpation LUNGS: Wheezing and crackles in both bases of the lungs. CVS: Irregular rate and rhythm, S1 and S2 present, no murmurs or gallops appreciated. ABDOMEN: Soft, non-tender. No signs of distention. No rebound, no guarding, and no masses palpated. Bowel sounds are normal. MSK: Tenderness in the mid and low back. Some ecchymosis in the middle of the back. NEURO: Alert and oriented x 3. No acute neurological deficits. Speech is normal and follows commands. SKIN: Dry and warm Triage Information Reviewed: Yes Vital Signs On Initial Exam: Initial Vitals Temp Pulse Resp BP Pulse Ox 98.1 F 88 20 140/92 93 09/25/19 12:41 09/25/19 12:41 09/25/19 12:41 09/25/19 12:41 09/25/19 12:41 Vital Signs Reviewed: Yes Procedures - Sedation Patient Received Moderate/Deep Sedation with Procedure: No Diagnostics - Vital Signs Vital Signs Temp Pulse Resp BP Pulse Ox 09/25/19 12:41 98.1 F 88 20 140/92 93 - Laboratory Result Diagrams: 09/27/19 05:50 09/27/19 05:50 Lab Statement: Any lab studies that have been ordered have been reviewed, and results considered in the medical decision making process. - Radiology Chest XR Radiology Interpretation Completed By: Radiologist Summary of Radiographic Findings: IMPRESSION: 1. COPD. 2. Small right pleural effusion. Dr. Santillan has reviewed this report. - CT Thoracic spine CT (taken at [facility]) CT Interpretation Completed By: Radiologist Summary of CT Findings: IMPRESSION: 1. An acute T12 compression fracture results in approximately 50% vertebral body height loss. A thin paraspinal hematoma is directed anteriorly towards the retroperitoneal. There is no severe bony retropulsion. 2. Osteopenia. 3. Moderate right pleural effusion of water attenuation. Dr. Santillan has reviewed this report. Lumbar spine CT (taken at [facility]) CT Interpretation Completed By: Radiologist Summary of CT Findings: IMPRESSION: 1. An acute T12 compression fracture is redemonstrated (see dictated thoracic spine CT). 2. No lumbar spine fracture. 3. 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 The common iliac artery aneurysm is status post endovascular stenting. This patient should BE followed by a vascular interventionalist. 4. Varying degrees of multilevel spondylosis results in at least mild to moderate spinal canal stenosis from L2-L3 through L4-L5. There is severe bilateral neural foraminal stenosis at L4-L5. Dr. Santillan has reviewed this report. - EKG 12:54 Cardiac Rate: NL - at 91 bpm EKG Rhythm: Atrial Fibrillation Ectopy: PVCs Summary of EKG Findings: EKG at 1254 shows afib at [address] elevations. Multiple PVCs. This EKG was interpreted and reviewed by ED physician. Back Pain Course/Dx - Course Assessment/Plan: This patient is an 88 y/o male presenting to [facility] via EMS from [facility] for low back pain s/p fall on September 18, 2019. Patient states he was was walking to his bedroom on 09/18/19 when he slipped and fell on his back. Denies head strike or LOC. Patient reports his low back pain has not been getting better since his fall and has actually been getting worse. Patient went to Urgent Care today where he had CTs done and was given [place] for the pain. Per EMS CTs showed acute compression fracture at T12 and right pulmonary effusion. Patient reports he has some shortness of breath. He denies fever, chest pain, abdominal pain. Per EMS patient's low back pain was not aggravated with bumps on the road. He states he uses oxygen at night time at home due to COPD. Patient lives at home with his and grandson. PMHx includes afib, HTN, COPD, abdominal aortic aneurysm. He notes "part of" his aneurysm was repaired by Dr. Lowery in [facility] and states he has plans to have his other aneurysm repaired. Patient is anticoagulated on Eliquis. Blood work without significant abnormality except for a hemoglobin 10.3, hematocrit 32, glucose 113, BNP 415, urinalysis is negative for UTI. T-spine CT done at the urgent care shows an acute T12 compression fracture which results in approximately 50% of vertebral body height loss. Paraspinal hematoma. Dr. Chavez from the urgent care spoke with Dr. Chew, neurosurgeon, and recommended for the patient to be transferred to the ED. He also recommends for the patient to get PTLSO brace if tolerated, pain management, bed rest and he will consult for this patient. He also recommends an MRI of the T-spine and C-spine. These are still pending at this time. Dr. Chew recommends for the patient to be admitted to the hospitalist services. Patient was given morphine and zofran for the pain. I discussed my physical exam and test results with Dr. Pitts from the hospitalist services and she agrees to admit the patient to her services. The patient is hemodynamically stable, alert and oriented x 3. - Diagnoses Provider Diagnoses: Closed T12 spinal fracture, Paraspinal hematoma - Provider Notifications Discussed Care Of Patient With: Irineo Chew Time Discussed With Above Provider: 15:21 Instructed by Provider To: Other - Discussed the case with nurse from Dr. Chew service as he is in surgery and Dr. Chew recommends MRI of lumbar and thoracic spine, both without contrast. [18:50] Dr. Gilbert, neurosurgeon, recommends a c-spine CT, P-TLSO brace, bed rest, and admission to the hospitalist. [18:53] Discussed pt care with Dr. Pitts, hospitalist, who accepted the pt for admission. Discharge ED - Sign-Out/Discharge Documenting (check all that apply): Patient Departure - Admit to [facility] - Discharge Plan Condition: Stable Disposition: ADMITTED TO [facility] - Billing Disposition and Condition Condition: STABLE Disposition: Admitted to [facility] - Attestation Statements Document Initiated by Scribe: Yes Documenting Scribe: Edna Steward Provider For Whom Solibe is Documenting (Include Credential): Pawel Santillan MD Scribe Attestation: Edna Solo, scribed for Pawel Santillan MD on 09/29/19 at 1756. Scribe Documentation Reviewed: Yes Provider Attestation: The documentation as recorded by the Edna stoddard accurately reflects the service I personally performed and the decisions made by me, Pawel Santillan MD Status of Scribe Document: Viewed
[2019-09-25 13:29] LABS: Hematocrit 32 % (42-52); Hemoglobin 10.3 g/dL (14.0-18.0); Mean Corpuscular HGB Conc 32 g/dL (31-36); Mean Corpuscular Hemoglobin 27 pg (27-31); Mean Corpuscular Volume 84 fL (80-94); Mean Platelet Volume 8.3 fL (7.4-10.4); Platelet Count 231 10^3/uL (150-450); Red Cell Distribution Width 19 % (10-15); White Blood Count 10.4 10^3/uL (3.5-10.8)
[2019-09-25 13:43] LABS: Albumin 3.9 g/dL (3.2-5.2); Albumin/Globulin Ratio 1.8 (1-3); BUN/Creatinine Ratio 26.7 (8-20); C Reactive Protein 2.81 mg/L (<8.01); Calcium 9.7 mg/dL (8.6-10.3); EGFR African American 153.5 (>60); EGFR Non-African American 126.9 (>60); Globulin 2.2 g/dL (2-4); Potassium 3.9 mmol/L (3.5-5.0); Total Protein 6.1 g/dL (6.4-8.9)
[2019-09-25 13:44] LABS: Troponin I 0.02 ng/mL (<0.03)
[2019-09-25 13:46] LABS: CKMB ng/mL 1.8 ng/mL (0.6-6.3)
[2019-09-25 13:52] LABS: ABS Eosinophils 0.1 10^3/ul (0-0.6); ABS Lymphocytes 2.2 10^3/ul (1.0-4.8); ABS Monocytes 1.5 10^3/ul (0-0.8); ABS Neutrophils 6.6 10^3/ul (1.5-7.7); Eosinophil % 0.7 %; Lymphocyte % 21.3 %
[2019-09-25 14:24] LABS: Polychromasia 2+
[2019-09-25 16:51] LABS: Urine Appearance Clear; Urine Bilirubin Negative (Negative); Urine Blood Negative (Negative); Urine Color Yellow; Urine Glucose Negative (Negative); Urine Ketones Trace (Negative); Urine Nitrite Negative (Negative); Urine Protein Negative (Negative); Urine Specific Gravity 1.015 (1.010-1.030); Urine Urobilinogen Negative (Negative)
[2019-09-25] MEDS ORDERED: Ondansetron INJ* 2 MG/ML VIAL IV ONE (19:22)
[2019-09-25] MEDS ORDERED: Morphine 4 MG/ML VIAL (1 ml) 4 MG/ML VIAL IV ONE (19:22)
[2019-09-25] MEDS ORDERED: NON FORMULARY MED* (Naproxen Sodium [Aleve] 220 MG) PO PRN (20:00)
[2019-09-25] MEDS ORDERED: Acetaminophen TAB* 325 MG PO PRN (20:00)
[2019-09-25] MEDS ORDERED: Albuterol 2.5 MG/3 ML NEB.SOL* (0.083%) INH PRN (20:32)
[2019-09-25] MEDS ORDERED: Al Hydrox/Mg Hydrox/Simet LIQ* 30 ML UDC PO PRN (20:32)
[2019-09-25] MEDS ORDERED: Ondansetron INJ* 2 MG/ML VIAL IV PRN (20:32)
[2019-09-25] MEDS ORDERED: Morphine INJ* 2 MG/ML 1 ML SYRINGE (TWO MG - NEW SYRINGE VERSION) IV PRN (20:32)
[2019-09-25] MEDS ORDERED: NS 0.9% 1000 ML** 1,000 ML IV SCH (20:45)
[2019-09-25] MEDS: Arformoterol (NF) 15 MCG/2 ML NEB.SOLN INH SCH (22:03)
[2019-09-25] MEDS: Budesonide NEB* 0.5 MG/2 ML NEB.SOLN INH SCH (22:06)
[2019-09-25] MEDS: Ipratropium 0.5MG/2.5ML NEB* 0.5 MG/2.5 ML NEB.SOLN INH SCH (22:06)
[2019-09-25] MEDS: metFORMIN* 500 MG TAB PO SCH (22:59)
[2019-09-25] MEDS: Atorvastatin* 10 MG TAB PO SCH (22:59)
--- NOTE | 2019-09-26 03:11 | CONS ---
CONSULTATION NOTE: DATE OF CONSULT: 09/25/19 HISTORY OF PRESENT ILLNESS: The patient is a very pleasant 88-year-old gentleman with a history of COPD, on home oxygen; AFib; hypertension; abdominal aortic aneurysm, status post endovascular intervention by Dr. Lowery in [facility], who is on Eliquis, who presented himself to [facility] after a reported fall on 09/18/19. At that time, his feet got tangled in his pajamas and he fell. Since then he has been having significant back pain. He denies loss of consciousness. He denies neck pain. He denies any new weakness, numbness, or tingling in his extremities. He ambulates with difficulty because of the pain, as he reports. He denies any urinary or GI incontinence. His perianal sensation is intact. The patient is and lives at home with his and his grandson. PAST MEDICAL HISTORY: Atrial fibrillation, hypertension, COPD, abdominal aortic aneurysm, diabetes, congestive heart failure, hypercholesterolemia, hypertension, GI bleed, arthritis. PAST SURGICAL HISTORY: Possible hip surgery and endovascular treatment of abdominal aneurysm. HOME MEDICATIONS: The patient is on: 1. Lovastatin. 2. Lisinopril and hydrochlorothiazide. 3. Famotidine. 4. Metformin. 5. Digoxin. 6. Ferrous sulfate. 7. Acetaminophen. 8. Eliquis. 9. Arformoterol. 10. Budesonide. 11. Ipratropium. 12. Naproxen. ALLERGIES: No known drug allergies. FAMILY HISTORY: Diabetes. SOCIAL HISTORY: Tobacco: Negative. Alcohol: Daily. Recreational drug use: Negative. PHYSICAL EXAM: This patient is not in acute distress. He is awake, alert, oriented x3. His pupils are equal and reactive. Cranial nerves II through XII grossly intact with decreased hearing bilaterally. Motor 4-5/5 in all extremities. Sensory grossly intact to light touch. Deep tendon reflexes +1 bilaterally. No clonus. No Babinski. Sigrid's negative. The patient has no tenderness to palpation in the cervical, thoracic, and lumbar spine with some exception in the lower lumbar spine. The patient has free range of motion of the cervical spine. DIAGNOSTIC STUDIES/LAB DATA: The patient had a CT scan of the cervical spine which revealed degenerative disease without evidence of fracture. The patient had a CT scan of the thoracic spine and lumbar spine with similar findings of degenerative disease with T12 inferior endplate fracture. The patient had an MRI of the thoracic and lumbar spine revealing acute T12 inferior endplate fracture without retropulsion. ASSESSMENT: This is a very pleasant 88-year-old gentleman with complaints of back pain with findings consistent with a T12 inferior endplate fracture with multiple comorbidities including chronic obstructive pulmonary disease, on home oxygen. PLAN: The patient at this point is doing quite well. Based on the current imaging in combination with the patient's comorbidities, I think conservative treatment would be the best option. We will recommend upright x-rays in TLSO brace, and if the patient can tolerate bracing, conservative treatment would be the best option. Thank you for allowing us to participate in the care of this patient. Please do not hesitate to contact our office in case if you have any further questions or concerns regarding the care of this patient. [id number] #: [id number] MTDD
--- NOTE | 2019-09-26 06:44 | HP ---
HISTORY AND PHYSICAL: DATE OF ADMISSION: 09/25/19 HISTORY OF PRESENT ILLNESS: This is an 88-year-old male with past medical history of COPD on intermittent nasal cannula oxygen at home, history of right lower lobe wedge resection for scarring, non-insulin dependent diabetes , AFib on anticoagulation with Eliquis, mild coronary artery disease presented to the ED via EMS status post fall and low back pain. The patient said he fell on did not hit his head. There was no record for loss of consciousness. He stated he was walking to his bedroom when he slipped and fell on his back. He reports his low back pain has not been getting better since his fall and has actually worsened. He went to the urgent care prior to coming to the ED, where he had a CT done and was given [place] for pain. Per the EMT, CT showed acute compression fracture at T12 and right pulmonary effusion. The patient reports he has shortness of breath and pain is rated at 10/10 at the worst and 5 /10 when not so much. His pain is aggravated by lying down or any form of movement. He stated while they were having arrived to the ED, any slight bump on the road aggravates his pain. For now, he states that he uses oxygen at night when at home due to his chronic COPD. He denied any obvious wheezing for the last few days, cough, fever, chills, chest pain, nausea, or vomiting or any urinary symptoms. He denies any sick contact or recent travel. PAST MEDICAL HISTORY: As mentioned already: 1. History of COPD. 2. AFib, on anticoagulation. 3. Diabetes mellitus, on metformin. 4. History of lung scarring, status post resection of the right lower lobe. 5. Hypoxic respiratory failure, on intermittent nasal cannula oxygen. 6. Hypertension. 7. Osteoarthritis. 8. Bilateral swelling of the knees. 9. History of abdominal aortic aneurysm. He noted his aneurysm was repaired by Dr. Pendleton in [facility] and states he has plans to have his other aneurysm repaired. PAST SURGICAL HISTORY: Include: 1. Bariatric surgery. 2. Appendectomy. 3. Cholecystectomy. 4. Right-sided hernia repair. 5. Abdominal aortic aneurysm repair. 6. Lung nodule resection. HOME MEDICATIONS: The patient is currently on: 1. Lovastatin 40 mg at bedtime. 2. Lisinopril/hydrochlorothiazide 20/12.5 mg one tablet daily. 3. Famotidine 20 mg daily. 4. Metformin 1000 mg tablet. He takes 1000 mg p.o. b.i.d. 5. Digoxin 125 mcg daily. 6. Ferrous sulfate 325 mg p.o. daily. 7. Hydrochlorothiazide 2.5 mg p.o. daily. 8. Tylenol as needed for pain. 9. Eliquis 2.5 mg p.o. b.i.d. 10. Brovana 15 mcg INH b.i.d. 12. Budesonide neb or Pulmicort 0.5 mg INH b.i.d. 13. Atrovent. 14. Naproxen/Aleve 220 mg p.o. q.a.m. p.r.n. for pain. ALLERGIES: No known drug allergies. FAMILY HISTORY: Dad had cancer, mom had a history of diabetes mellitus, and one of his sisters also had history of diabetes mellitus. SOCIAL HISTORY: Daily alcohol use, denied tobacco use, also denied the use of illicit drugs, but he is a former smoker. REVIEW OF SYSTEMS: Negative fever, negative chest pain, positive shortness of breath, negative abdominal pain. Musculoskeletal: Positive low back pain. A 14 systems reviewed. All others are negative except as stated in the HPI. PHYSICAL EXAMINATION GENERAL: The patient is a well-developed and nourished man who is lying comfortably in bed. The patient is not in any acute distress at this moment, surrounded by family. VITAL SIGNS: Initial records, temperature 98.8, pulse 88, respiratory rate 20, BP 140/92, pulse oximetry 93%. HEENT: Head and neck: No signs of trauma. No ecchymosis. No hematomas or scar depressions. No sinus tenderness. Eyes: Extraocular muscles intact. Pupils equal and reactive to light and accommodation. No injected conjunctivae. No nystagmus. Ears: Hearing grossly intact. Ear canals and tympanic membranes are within normal limits. Mouth, oropharynx within normal limits and moist. NECK: Supple. Trachea is midline. No adenopathy. No JVD. No carotid bruit. No C-spine tenderness. Neck with full range of motion. CHEST: Symmetrical, no tenderness on palpation. Lungs, wheezing and crackles in both lung bases with decreased breath sounds. CARDIOVASCULAR: S1 and S2 present. No murmurs or gallops appreciated. Rate is irregular rate and rhythm. ABDOMEN: Soft, nontender. No signs of distension. No rebound, no guarding and no mass palpated. Bowel sounds are within normal limits. MUSCULOSKELETAL: Tenderness in the mid and lower back. Some ecchymosis in the middle of the back. NEUROLOGIC: Alert and oriented x3. No acute neurological deficits. Speech is normal and follows commands. PSYCHIATRIC: Normal affect and normal mood. SKIN: Dry and warm. DIAGNOSTIC STUDIES/LAB DATA: Today, WBC 10.4, RBC 3.80, hemoglobin 10.3, hematocrit 32, MCV 84, MCH 27, MCHC 32, RDW 19, platelet count is 231, MPV 8.3. APTT 33.7. Chemistry: Sodium 136, potassium 3.9, chloride 101, carbon dioxide 28, anion gap 7, BUN 16, creatinine 0.60, estimated GFR non- 126.9, BUN/ creatinine ratio of 26.7, glucose 115, lactic acid 1.5, calcium 9.7. Total bilirubin 1.00, AST 12, ALT 10, alkaline phosphatase 20. Total creatine kinase 18, CK-MB 1.8, troponin 0.02. C-reactive protein 2.51. BNP 415. Total protein 6.1, albumin 3.9, globulin 2.2, albumin/globulin ratio 1.8. Urine is grossly normal. He did have a chest x-ray. The impression of COPD and a small right pleural effusion appreciated. CT spine, cervical area without contrast revealed moderate degenerative disk disease, no acute fractures. Other findings include in the vertebrae, there is mild straightening of the C-spine, disc, spinal canal, neural foramina. There is a moderate disc space narrowing between C3 and C8. Soft tissues unremarkable. Lung apices are normal. Thoracic MRI spine without contrast: There is a moderate compression fracture of T12 vertebral body with marrow edema consistent with an acute or subacute deformity to slight chronic compression fracture of T1 vertebral body. Mild anterolisthesis of C7 on T1. There is a mild decrease in the AP diameter of the [id number] thoracic spinal cord, which is likely or due to cord atrophy. An intradural arachnoid cyst cannot be excluded. Degenerative changes are identified at the multiple thoracic levels as described above. Moderate right pleural effusion. Mild aneurysm, mild dilatation of the descending thoracic aorta measuring 3.3 cm in diameter. Reversal of the lordotic curvatures of the spine. Degenerative changes are identified at multiple cervical levels. This can be further evaluated with a dedicated MRI of the cervical spine. MRI of the lumbar spine without contrast. There is a moderate compression fracture of the T12 vertebral body with narrow marrow edema consistent with an acute compression fracture. There is a small concavity of the inferior L4 endplate with mild adjacent marrow edema likely representing an acute small node. Mild eccentric disk edema is identified at L4-L5, which is likely reactive or due to diskitis. Degenerative changes are noted at multiple lumbar levels. No significant narrowing of the thecal sac at any lumbar level. Neuroforaminal narrowing identified from L2 to L3 through L5 to S1. There is a second aneurysm of the distal abdominal aorta measuring 3.9 cm in diameter. 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 There is mild peripheral partial thrombosis on this aneurysm. This can be further evaluated with a CTA. ASSESSMENT AND PLAN: This is an 88-year-old male presenting to the ED with history of low back pain and MRI evidence of acute T12 compression fractures resulting in approximately 50% vertebral body height loss, a thin paraspinal hematoma is currently anterior towards the retroperitoneum. There is no severe bony retropulsion. There is evidence of osteopenia, moderate right pleural effusion. The patient will be admitted for a surgical short stay unit. Neurosurgeon informed and will review the patient. Neurosurgery also requested the MRI that had been included in this report. Based on this information, I will hold anticoagulation for now until reviewed by the neurosurgeon. For the compression fracture, pain control and TLSO brace will be put in place and the patient stabilized. For atrial fibrillation, it is rate controlled. Anticoagulation will be put on hold until reviewed by the neurosurgeon. For diabetes mellitus, the patient is to continue with the metformin home medication with adjunct insulin sliding scale, diabetic diet. For hypertension, the patient it to continue with lisinopril and hydrochlorothiazide 1 tablet orally daily. For hyperlipidemia, the patient is to continue with lovastatin 40 mg daily at bedtime. Gastrointestinal prophylaxis with Pepcid. The patient will also continue digoxin 125 mcg orally daily for atrial fibrillation. For COPD, the patient is to continue home inhalers and DuoNeb as needed for shortness of breath and wheezing. The patient is not in hypoxic respiratory failure at the moment. DVT prophylaxis: The patient is already on Eliquis. Code status: Full code. Fluids, electrolytes and nutrition: He will continue on diabetic diet. TIME SPENT: Time spent on this admission was 50 minutes, greater than half of that time was spent [id number] with the patient obtaining my history and physical, the other half was spent going over the plan of care with the patient and implementing plan of care. The patient will be evaluated by Neurosurgery. Thank you very much for the care of this patient. [id number]/[facility] #: [id number] NELDA
[2019-09-26 06:53] LABS: Hematocrit 30 % (42-52); Hemoglobin 9.7 g/dL (14.0-18.0); Mean Corpuscular HGB Conc 32 g/dL (31-36); Mean Corpuscular Hemoglobin 27 pg (27-31); Mean Corpuscular Volume 84 fL (80-94); Mean Platelet Volume 7.9 fL (7.4-10.4); Platelet Count 218 10^3/uL (150-450); Red Blood Count 3.59 10^6 /uL (4.18-5.48); Red Cell Distribution Width 18 % (10-15); White Blood Count 9.1 10^3/uL (3.5-10.8)
[2019-09-26 07:08] LABS: BUN/Creatinine Ratio 21.1 (8-20); Calcium 8.6 mg/dL (8.6-10.3); EGFR African American 162.9 (>60); EGFR Non-African American 134.6 (>60); Magnesium 1.5 mg/dL (1.9-2.7); Potassium 4.1 mmol/L (3.5-5.0)
[2019-09-26 07:37] LABS: ABS Eosinophils 0.1 10^3/ul (0-0.6); ABS Lymphocytes 1.5 10^3/ul (1.0-4.8); ABS Monocytes 1.1 10^3/ul (0-0.8); ABS Neutrophils 6.4 10^3/ul (1.5-7.7); Eosinophil % 1.2 %; Lymphocyte % 16.9 %
[2019-09-26] MEDS: Ipratropium 0.5MG/2.5ML NEB* 0.5 MG/2.5 ML NEB.SOLN INH SCH ×2 (07:38→21:37)
[2019-09-26] MEDS: Arformoterol (NF) 15 MCG/2 ML NEB.SOLN INH SCH (07:38)
[2019-09-26] MEDS: Budesonide NEB* 0.5 MG/2 ML NEB.SOLN INH SCH ×2 (07:38→21:37)
[2019-09-26] MEDS ORDERED: Hydrochlorothiazide TAB* 25 MG PO SCH (09:00)
[2019-09-26] MEDS: Hydrochlorothiazide TAB* 25 MG PO SCH (09:11)
[2019-09-26] MEDS: Lisinopril TAB* 10 MG PO SCH (09:11)
[2019-09-26] MEDS: Famotidine TAB* 20 MG PO SCH (09:11)
[2019-09-26] MEDS: Digoxin TAB* 0.125 MG PO SCH (09:11)
[2019-09-26] MEDS: metFORMIN* 500 MG TAB PO SCH ×2 (09:13→21:22)
[2019-09-26] MEDS: Ferrous Sulfate TAB* 325 MG PO SCH (09:13)
[2019-09-26] MEDS: ARFORMOTEROL 15 MCG/2 ML INH SCH ×3 (10:33→22:49)
[2019-09-26] MEDS: Acetaminophen TAB* 325 MG PO PRN (13:58)
[2019-09-26] MEDS ORDERED: Magnesium Sulfate 2 GM IV* 2 GM/50 ML BAG IVPB ONE (17:20)
--- NOTE | 2019-09-26 17:56 | PN ---
Subjective Date of Service: 09/26/19 Interval History: Patient sitting in bed on assessment with at bedside. Reports mild to moderate pain to back. Denies numbness/tingling, weakness, loss of bowel or bladder, urinary symptoms. Reports he is voiding and had BM. Objective Active Medications: Acetaminophen (Tylenol Tab*) 650 mg PO Q4H PRN PRN Reason: MILD PAIN or TEMP > 100.4 Last Admin: 09/26/19 13:58 Dose: 650 mg Al Hydrox/Mg Hydrox/Simethicone (Maalox Plus*) 30 ml PO Q6H PRN PRN Reason: INDIGESTION Albuterol (Ventolin 2.5 Mg/3 Ml Neb.Gertrude*) 2.5 mg INH [id number] AWAKE PRN PRN Reason: sob/wheezing Apixaban (Eliquis*) 2.5 mg PO BID [facility] Arformoterol Tartrate (Brovana(Nf)) 15 mcg INH BID [facility] Last Admin: 09/26/19 10:33 Dose: 15 mcg Atorvastatin Calcium (Lipitor*) 10 mg PO BEDTIME [facility] Last Admin: 09/25/19 22:59 Dose: 10 mg Budesonide (Pulmicort Neb*) 0.5 mg INH BID [facility] Last Admin: 09/26/19 07:38 Dose: 0.5 mg Digoxin (Lanoxin Tab*) 0.125 mg PO DAILY [facility] Last Admin: 09/26/19 09:11 Dose: 0.125 mg Famotidine (Pepcid Tab*) 20 mg PO DAILY [facility] Last Admin: 09/26/19 09:11 Dose: 20 mg Ferrous Sulfate (Ferrous Sulfate Tab*) 325 mg PO DAILY [facility] Last Admin: 09/26/19 09:13 Dose: 325 mg Hydrochlorothiazide (Hydrodiuril Tab*) 12.5 mg PO DAILY [facility] Last Admin: 09/26/19 09:11 Dose: 12.5 mg Magnesium Sulfate (Magnesium Sulfate 2 Gm Iv*) 2 gm in 50 mls @ 50 mls/hr IVPB ONCE ONE Stop: 09/26/19 18:19 Ipratropium [place] (Atrovent 0.5 Mg Neb.Gertrude*) 0.5 mg INH BID [facility] Last Admin: 09/26/19 07:38 Dose: 0.5 mg Lisinopril (Prinivil Tab*) 20 mg PO DAILY [facility] Last Admin: 09/26/19 09:11 Dose: 20 mg Metformin HCl (Glucophage*) 1,000 mg PO BID [facility] Last Admin: 09/26/19 09:13 Dose: 1,000 mg Morphine Sulfate (Morphine Inj (Syringe))*) 2 mg IV Q4H PRN PRN Reason: PAIN - MILD Non-Formulary Medication (Naproxen Sodium [Aleve]) 220 mg PO QAM PRN PRN Reason: PAIN - MODERATE Ondansetron HCl (Zofran Inj*) 4 mg IV Q4H PRN PRN Reason: NAUSEA/VOMITING Vital Signs - 8 hr 09/26/19 09/26/19 11:08 13:40 Temperature 98.3 F 98.7 F Pulse Rate 78 78 Respiratory 17 22 Rate Blood Pressure 108/62 113/56 (mmHg) O2 Sat by Pulse 95 94 Oximetry Oxygen Devices in Use Now: None Appearance: Comfortable, NAD Eyes: No Scleral Icterus Ears/Nose/Mouth/Throat: Clear Oropharnyx, Mucous Membranes Moist Neck: NL Appearance and Movements; NL JVP Respiratory: Symmetrical Chest Expansion and Respiratory Effort, Clear to Auscultation Cardiovascular: NL Sounds; No Murmurs; No JVD, No Edema Abdominal: NL Sounds; No Tenderness; No Distention Lymphatic: No Cervical Adenopathy Extremities: No Edema Skin: No Rash or Ulcers Neurological: Alert and Oriented x 3, NL Sensation, NL Muscle Strength and Tone Nutrition: Taking PO's Result Diagrams: 09/26/19 06:45 09/26/19 06:45 Additional Lab and Data: Laboratory Results - last 24 hr 09/26/19 09/26/19 06:45 06:45 WBC 9.1 RBC 3.59 L Hgb 9.7 L Hct 30 L MCV 84 MCH 27 MCHC 32 RDW 18 H Plt Count 218 MPV 7.9 Neut % (Auto) 69.9 Lymph % (Auto) 16.9 [place] % (Auto) 11.6 Eos % (Auto) 1.2 Baso % (Auto) 0.4 Absolute Neuts (auto) 6.4 Absolute Lymphs (auto) 1.5 Absolute Monos (auto) 1.1 H Absolute Eos (auto) 0.1 Absolute Basos (auto) 0.0 Absolute Nucleated RBC 0.0 Nucleated RBC % 0.0 Sodium 137 Potassium 4.1 Chloride 104 Carbon Dioxide 28 Anion Gap 5 BUN 12 Creatinine 0.57 L Est GFR ( Amer) 162.9 Est GFR (Non-Af Amer) 134.6 BUN/Creatinine Ratio 21.1 H Glucose 133 H Calcium 8.6 Magnesium 1.5 L Assess/Plan/Problems-Billing Assessment: 88 yr old male with pmh of afib, aaa, htn, copd, dm, chf, hld, gi bleed; who presented to ED after fall and was found to have t12 fx - Patient Problems (1) Fall Comment: - Mechanical fall - T 12 fx - Neurosurg consulting and recommends conservative tx of TSLO brace (2) Atrial fibrillation Comment: - Resume AC. Okay'd by Neurosurg - Cont dig (3) COPD (chronic obstructive pulmonary disease) Comment: - No s/s of exacerbation - Uses supplemental O2 intermittently at home (4) Diabetes Comment: - Cont Metformin - Cont Fingersticks AC with SS lispro. (5) Hypertension Comment: - Cont home HCTZ and Lisinopril (6) DVT prophylaxis Comment: - Resume home AC Attending: Nawaf Mujica
[2019-09-26] MEDS: Atorvastatin* 10 MG TAB PO SCH (21:21)
[2019-09-26] MEDS: Apixaban* 5 MG TAB PO SCH (21:22)
[2019-09-26] MEDS ORDERED: Magnesium Hydroxide LIQ* 30 ML UDC PO ONE (23:22)
[2019-09-27] MEDS: Docusate CAP* 100 MG PO SCH ×2 (01:21→08:50)
[2019-09-27 06:21] LABS: Hematocrit 33 % (42-52); Hemoglobin 10.1 g/dL (14.0-18.0); Mean Corpuscular HGB Conc 31 g/dL (31-36); Mean Corpuscular Hemoglobin 26 pg (27-31); Mean Corpuscular Volume 84 fL (80-94); Mean Platelet Volume 8.3 fL (7.4-10.4); Platelet Count 237 10^3/uL (150-450); Red Blood Count 3.89 10^6 /uL (4.18-5.48); Red Cell Distribution Width 18 % (10-15); White Blood Count 11.9 10^3/uL (3.5-10.8)
[2019-09-27] MEDS: Acetaminophen TAB* 325 MG PO PRN ×3 (06:34→18:03)
[2019-09-27 06:43] LABS: BUN/Creatinine Ratio 26.9 (8-20); Calcium 9.2 mg/dL (8.6-10.3); EGFR African American 181.1 (>60); EGFR Non-African American 149.6 (>60); Magnesium 2.1 mg/dL (1.9-2.7); Potassium 3.8 mmol/L (3.5-5.0)
[2019-09-27] MEDS: Ipratropium 0.5MG/2.5ML NEB* 0.5 MG/2.5 ML NEB.SOLN INH SCH (07:14)
[2019-09-27] MEDS: Budesonide NEB* 0.5 MG/2 ML NEB.SOLN INH SCH (07:15)
[2019-09-27] MEDS: ARFORMOTEROL 15 MCG/2 ML INH SCH (07:24)
[2019-09-27 08:38] LABS: ABS Eosinophils 0.1 10^3/ul (0-0.6); ABS Lymphocytes 1.9 10^3/ul (1.0-4.8); ABS Monocytes 1.3 10^3/ul (0-0.8); ABS Neutrophils 8.5 10^3/ul (1.5-7.7); Eosinophil % 1.2 %; Lymphocyte % 15.6 %
[2019-09-27] MEDS: Hydrochlorothiazide TAB* 25 MG PO SCH (08:48)
[2019-09-27] MEDS: Famotidine TAB* 20 MG PO SCH (08:49)
[2019-09-27] MEDS: Lisinopril TAB* 10 MG PO SCH (08:49)
[2019-09-27] MEDS: Apixaban* 5 MG TAB PO SCH (08:49)
[2019-09-27] MEDS: metFORMIN* 500 MG TAB PO SCH (08:50)
[2019-09-27] MEDS: Digoxin TAB* 0.125 MG PO SCH (08:50)
[2019-09-27] MEDS: Ferrous Sulfate TAB* 325 MG PO SCH (08:50)
[2019-09-27 13:44] VITALS: BP 122/59
--- NOTE | 2019-09-27 18:39 | PN ---
Progress Note - Progress Note Date of Service: 09/27/19 SOAP: Subjective: []No events ON. Tolerates Po well. Voids. Ambulates/ Tolerates brace well. Wants to go home. Back pain significantly improved. Objective: []VSS AAOx3 ANGEL LUIS, CN II-XII grossly intact ,Hearing decreased Motor 4-5/5 Sensory grossly intact to light touch Assessment: [] 88 yom T12 fracture Plan: []Monitor VS, Neurochecks Upright XR without significant kyphosis Keep brace on when out of bed No neurosurgical intervention at this point. May follow up with Dr Ellsworth in two weeks. Full instructions were given to patient and his family including his daughter and . Appreciate IM care. Alessandro Chew MD
[2019-09-27] MEDS ORDERED: Apixaban* 2.5 MG TAB PO SCH (21:00)
--- NOTE | 2019-09-28 02:01 | DS ---
CC: Dr. Herring * DISCHARGE SUMMARY: DATE OF ADMISSION: 09/26/19 DATE OF DISCHARGE: 09/27/19 PRIMARY CARE PROVIDER: Dr. Herring. ATTENDING PHYSICIAN: Dr. Nereida Diego * (dictated by Fadia Sheffield NP) PRIMARY DIAGNOSES: 1. T12 compression fracture. 2. Fall. 3. Atrial fibrillation. 4. Diabetes. 5. Hypertension. 6. Hyperlipidemia. 7. Chronic obstructive pulmonary disease. CONSULTATION WHILE IN THE HOSPITAL: Dr. Chew, Neurosurgery. STUDIES WHILE IN THE HOSPITAL: 1. Chest x-ray: Chronic obstructive pulmonary disease. Small right pleural effusion. 2. EKG: Atrial fibrillation. 3. Lumbar spine MRI: There is a small amount of compression fracture of the T12 vertebral body with marrow edema, consistent with acute or subacute compression fracture. There is small concavity of the inferior L4 endplate with mild adjacent marrow edema likely representing an acute Schmorl's node. Mild adjacent disk edema is identified at L4-L5, which is likely reactive due to diskitis. Clinical correlation is recommended. Degenerative changes are noted on multiple lumbar levels. No significant narrowing of thecal sac at any lumbar level. Neuroforaminal narrowing identified at L2-L3 through L5-S1. There is a saccular aneurysm of the distal abdominal aorta measuring 3.9 cm in diameter. 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 Mild peripheral partial thrombosis of aneurysm, can be further evaluated with CTA. Nonspecific heterogenous signal intensity of the visualized bone marrow. There is a probable hemangioma within the L4 vertebral body. Followup bone scan is suggested. Mild levoscoliosis at the lumbar level. Renal cyst. Exophytic to the mid pole right kidney, there is an isointense lesion measuring 1 cm and likely representing the complex cyst or solid lesion. Followup ultrasound recommended. 4. Thoracic spine MRI: There is moderate compression fracture of T12 vertebral body with marrow edema, consistent with acute or subacute deformity. Slight chronic compression fracture of T1 vertebral body. Mild anterolisthesis of C7 on T1. There is mild decrease in AP diameter of the mid to upper thoracic spinal cord which is likely developmental or due to cord atrophy. An intradural arachnoid cyst cannot be excluded. Degenerative changes are identified at multiple thoracic levels. Moderate right pleural effusion. Mild aneurysmal dilatation of descending aorta measuring 3.3 cm in diameter. Reversal of the lordotic curvature of the cervical spine. Degenerative changes were identified at multiple levels. 5. Cervical spine CT: Moderate degenerative disk disease. No acute fracture. 6. Thoracic spine x-ray: Compression fracture of T12 of similar to that identified on prior MRI. DISCHARGE HOME MEDICATIONS: Continued home medications: 1. Naproxen 220 mg p.o. q.a.m. p.r.n. 2. Hydrochlorothiazide 12.5 mg p.o. daily. 3. Tylenol 650 mg p.o. q.4 hours p.r.n. 4. Lovastatin 40 mg p.o. at bedtime. 6. Brovana 15 mcg inhalation b.i.d. 7. Pulmicort 0.5 mg inhalation b.i.d. 8. Atrovent nebulizer 0.5 mg inhalation b.i.d. 9. Eliquis 2.5 mg p.o. b.i.d. 10. Metformin 1000 mg p.o. b.i.d. 11. Pepcid 20 mg p.o. daily. 12. Digoxin 0.125 mg p.o. daily. 13. Lisinopril/hydrochlorothiazide 1 tab p.o. daily. 14. Ferrous sulfate tab 325 mg p.o. daily. No medications were changed, discontinued or added. HISTORY OF PRESENT ILLNESS/HOSPITAL COURSE: Mr. Pearl is an 88-year-old male with past medical history significant for COPD, AFib, diabetes, hypertension, osteoarthritis, aortic aneurysm, who presented to the emergency department on after a mechanical fall. Please see history and physical dictated by Dr. Dread Pedraza for complete summary of events leading up to hospitalization , but in short, the patient had a mechanical fall when he tripped on his pajamas. While in the emergency department, MRI revealed a T12 compression fracture; therefore, the patient was admitted to the hospital. While in the hospital, the patient was evaluated by Neurosurgery who recommended conservative measures including a TLSO brace. The patient received a TLSO brace and was re-imaged after it was placed. The patient was reassessed by Neurosurgery after TLSO brace was placed. The patient reported improvement in pain with brace. The patient has been up to the chair without difficulty. The patient has had no increase in pain, neurological deficits/changes, bowel or bladder weakness or loss of control. The patient has been voiding without difficulty. The patient was passing flatus. The patient has had a bowel movement. The patient is stable for discharge home. REVIEW OF SYSTEMS: The patient reports mild pain in back but reports this has improved since admission. The patient denies numbness, tingling, loss of bowel or bladder, weakness, chest pain, shortness of breath, nausea, vomiting, diarrhea, fever, chills. A 14-point review of systems was completed and all were negative. PHYSICAL EXAMINATION: Vital Signs: Temp 98.1, HR 66, RR 17, O2 saturation is 92% on room air, BP is 122/59. General: Mr. Pearl is sitting in bed. Appears to be in no acute distress. Appears stated age. HEENT: EOMs intact. Sclerae without icterus. Oral mucosa is moist without lesion. Posterior pharynx is clear. Neck: No lymphadenopathy. No pain to palpation. Respiratory : Symmetrical chest expansion. No accessory muscle use. Lungs are clear to auscultation. No rhonchi, wheezes or rales. CV: Regular rate and rhythm. S1 , S2 present. No murmurs, rubs or gallops. Extremities: Skin is warm and smooth bilaterally. No edema. Pedal pulses 2+ bilaterally. Musculoskeletal: No pain or deformities. Abdomen: Soft, nontender to palpation. Bowel sounds normoactive. Neuro: The patient is awake, alert, and oriented x4. Moves all extremities. Motor strength is 5/5 in the upper and lower extremities. Sensation is intact. Skin: Grossly intact. DIAGNOSTIC STUDIES/LABORATORY DATA: WBC 11.9, hemoglobin 10.1, hematocrit 33, platelets 237. Sodium 139, potassium 3.8, chloride 103, carbon dioxide 29, BUN 14, creatinine 0.52, glucose 140. Magnesium 2.1. DISCHARGE PLAN/FOLLOWUP: 1. T12 fracture: Per Dr. Chew' recommendation, the patient is to wear the brace at all times for at least 3 months unless otherwise instructed by Dr. Rangel. The patient is to not lift, bend or drive until cleared by Dr. Rangel. The patient is to follow up with Dr. Rangel in 1 to 2 weeks. The patient is to have repeat x-ray in 2 weeks. This has been ordered. The patient educated on signs and symptoms of new or worsening condition, when to return to the emergency department. The patient stated understanding. 2. Atrial fibrillation: The patient should resume his home medications including his anticoagulation which has been okayed by Neurosurgery. 3. COPD: The patient has no signs of exacerbation. He should continue his supplemental O2 at home and his inhalers. 4. Diabetes: The patient should continue his home medication of metformin. 5. Hypertension: The patient should continue his HCTZ and lisinopril. 6. Radiographic findings: As mentioned above in the report of the MRI of the lumbar spine, the patient does have saccular aneurysm, left iliac artery aneurysm, and peripheral partial thrombosis of this aneurysm. The patient follows with a vascular surgeon at [facility]; therefore, he should follow up with this provider as recommended by his primary care. The patient is also noted to have a probable hemangioma within the L4 vertebral body and a followup bone scan is suggested. The patient has been referred to Dr. Rangel who specializes in bone/osteoporosis. Bone scan can be discussed at this followup. Renal cyst noted on MRI on right kidney. A followup ultrasound was recommended. Therefore, I will defer this to the primary care provider to order this if they deem necessary. 7. Followup: The patient should follow up with his primary care in 1 to 3 days. The patient is to follow up with Dr. Rangel with Sports Medicine in 2 weeks. The patient is to have followup x-ray in 2 weeks, which has been ordered. This is a summarized report of a complex medical history and hospital stay. For further details, please see the entire medical record. TIME SPENT: Approximately 35 minutes was spent on this discharge, greater than half of that time was spent [id number] with the patient discussing discharge plan and instructions. This case has been reviewed with my attending, Dr. Diego who is in agreement with my plan of care. FADIA SHEFFIELD, [place] [id number]/[facility] #: [id number] NELDA
== END 2019-09-27 19:00 | disposition home or self-care (01) | DRG 552 ==
LOC: ED 12:41 → SSU 20:32
PROVIDERS: ADMIT Family Medicine; ATTEND Hospitalist
DX: S22.089A Unspecified fracture of T11-T12 vertebra, initial encounter for closed fracture (principal); I74.5 Embolism and thrombosis of iliac artery; I74.8 Embolism and thrombosis of other arteries; J44.9 Chronic obstructive pulmonary disease, unspecified; I48.91 Unspecified atrial fibrillation; I72.3 Aneurysm of iliac artery; I11.0 Hypertensive heart disease with heart failure; I50.9 Heart failure, unspecified; E78.00 Pure hypercholesterolemia, unspecified; M19.90 Unspecified osteoarthritis, unspecified site; W01.0XXA Fall on same level from slipping, tripping and stumbling without subsequent striking against object, initial encounter; I71.4 Abdominal aortic aneurysm, without rupture; E78.5 Hyperlipidemia, unspecified; E11.9 Type 2 diabetes mellitus without complications; Z99.81 Dependence on supplemental oxygen; Z87.891 Personal history of nicotine dependence; Z98.84 Bariatric surgery status; Z79.84 Long term (current) use of oral hypoglycemic drugs; Y92.003 Bedroom of unspecified non-institutional (private) residence as the place of occurrence of the external cause; Z79.899 Other long term (current) drug therapy; Z79.51 Long term (current) use of inhaled steroids; Z79.01 Long term (current) use of anticoagulants
CPT/HCPCS: 36415; 71046; 72070; 72125; 72146; 72148; 80048; 80053; 81003; 82550; 82553; 83605; 83735; 83880; 84484; 85025; 85730; 86140; 93005; 94640; 96374; 96375; 99284; A9270-GY; J2270; J2405; J3475